=== PATIENT | female | born 1960 | race Caucasian/White ===

== ENCOUNTER 2018-02-04 19:47 | Emergency (ER) | payer OTHER ==
[2018-02-04 20:42] LABS: Absolute Lymphocytes (CBC) 1.3 K/uL (0.7-4.9); Absolute Monocytes 1.6 K/uL (0.1-1.3); Absolute Neutrophil 10.2 K/uL (1.8-8.0); Basophils % 0.5 % (0-1.3); Eosinophils % 1.5 % (0-4.4); Hematocrit 32.9 % (36.0-45.0); MCH 28.1 pg (27.0-35.0); MPV 8.5 fL (7.6-11.3); Monocytes % 11.9 % (3.3-12.3); RBC Red Blood Cell Count 4.01 M/uL (3.86-4.86)
[2018-02-04 20:49] LABS: Bicarbonate 30 mEq/L (21-31); Glucose Level 84 mg/dL (65-120); Potassium 3.7 mEq/L (3.6-5.0); Sodium Level 139 mEq/L (135-145)
[2018-02-04] MEDS ORDERED: PROMETHAZINE 25 MG/ML VIAL ONE (20:52)
[2018-02-04] MEDS ORDERED: ACETAMINOPHEN 500 MG TAB ONE (20:52)
[2018-02-04] MEDS ORDERED: NA CHLORIDE 0.9% 1,000 ML ONE (20:52)
[2018-02-04] MEDS ORDERED: ALBUTEROL 2.5 MG/3 ML NEB SOL ONE ×2 (20:52→22:26)
[2018-02-04 20:55] LABS: ALT/SGPT 17 IU/L (10-60); AST/SGOT 20 IU/L (10-42); Alkaline Phosphatase 75 IU/L (42-121); BUN Blood Urea Nitrogen 17 mg/dL (6-20); Bilirubin Direct < 0.1 mg/dL (0-0.2); Bilirubin Total 0.5 mg/dL (0.3-1.2); Glomerular Filtration Rate 50 mL/min (=/>90)
--- NOTE | 2018-02-04 21:51 | ER ---
Nurse's Notes [facility] Name: Adelita Lemons Age: 57 yrs Sex: Female : 1960 Arrival Date: 02/04/2018 Time: 19:54 Bed 19 Private MD: Diagnosis: Acute Upper Respiratory Infection;Bronchitis Presentation: 02/04 19:59 Presenting complaint: Patient states: sinus congestion, fever, cough since wednesday. la1 Transition of care: patient was not received from another setting of care. Onset of symptoms was February 04, 2018. Care prior to arrival: None. 19:59 Method Of Arrival: Ambulatory la1 19:59 Acuity: CRISTAL 3 la1 Historical: - Allergies: 19:59 Amoxicillin; la1 19:59 morphine-vomiting; la1 - PMHx: 19:59 None; la1 - Immunization history:: Adult Immunizations up to date. - Social history:: Smoking status: Patient/guardian denies using tobacco. - Family history:: not pertinent. - Hospitalizations: : No recent hospitalization is reported. Screenin:17 Abuse screen: Denies threats or abuse. Nutritional screening: No deficits noted. bb Tuberculosis screening: No symptoms or risk factors identified. Fall Risk None identified. Assessment: 20:17 General: Appears in no apparent distress. Behavior is calm, cooperative. Neuro: Level bb of Consciousness is awake, alert, obeys commands, Oriented to person, place, time, situation. Cardiovascular: No deficits noted. Respiratory: Respiratory effort is unlabored, Breath sounds are clear bilaterally. GI: Abdomen is non-distended, Bowel sounds present X 4 quads. Derm: Skin is pink, warm \T\ dry. Musculoskeletal: Circulation, motion, and sensation intact. 20:54 Reassessment: Patient is alert, oriented x 3, equal unlabored respirations, skin bb warm/dry/pink. pt returned from CT scan, spouse at bedside, IV intact. 22:33 Reassessment: Patient and/or family updated on plan of care and expected duration. Pain bb level reassessed. Patient is alert, oriented x 3, equal unlabored respirations, skin warm/dry/pink. pt awaiting discharge for completion of breathing treatment. 23:28 Reassessment: Patient is alert, oriented x 3, equal unlabored respirations, skin bb warm/dry/pink. pt verbalized understanding of and agrees to plan of care discharge instructions given pt ambulated with steady gait to exit accompanied by spouse Patient states feeling better. Vital Signs: 19:59 BP 156 / 103; Pulse 105; Resp 19; Temp 99.0(TE); Pulse Ox 98% on R/A; Weight 90.72 kg; la1 Height 6 ft. 3 in. (190.50 cm) (R); 21:13 BP 181 / 99; Pulse 96; Resp 22 S; Pulse Ox 98% on R/A; bb 22:34 BP 149 / 84; Pulse 85; Resp 16 S; Pulse Ox 99% on 7% Nebulizer Mask; bb 23:28 BP 153 / 83; Pulse 95; Resp 18 S; Temp 98.4(O); Pulse Ox 94% on R/A; bb 19:59 Body Mass Index 25.00 (90.72 kg, 190.50 cm) la1 ED Course: 19:54 Patient arrived in ED. la1 19:59 Triage completed. la1 20:00 Arm band placed on left wrist. la1 20:04 Jose Antonio Leung MD is Attending Physician. wa 20:17 Bhavana Hill, DISHA is Primary Nurse. bb 20:17 Patient has correct armband on for positive identification. Bed in low position. Call bb light in reach. Side rails up X 1. Adult w/ patient. Pulse ox on. NIBP on. 20:25 Initial lab(s) drawn, by me, sent to lab. Flu and/or RSV swab sent to lab. Inserted bb saline lock: 20 gauge in right wrist, using aseptic technique. Blood collected. 20:29 Patient moved to radiology via wheelchair. ag1 20:33 X-ray completed. Patient tolerated procedure well. ag1 20:33 Patient moved back from radiology. ag1 23:30 No provider procedures requiring assistance completed. IV discontinued, intact, bb bleeding controlled, No redness/swelling at site. Pressure dressing applied. Administered Medications: 20:25 Drug: Promethazine 12.5 mg Route: IVP; Site: right wrist; bb 22:18 Follow up: Response: No adverse reaction bb 20:45 Drug: Albuterol 2.5 mg Route: Inhalation; bb 20:45 Drug: NS 0.9% 1000 ml Route: IV; Rate: 1000 ml; Site: right wrist; bb 22:18 Follow up: IV Status: Completed infusion; IV Intake: 1000ml bb 20:55 Drug: Tylenol 1000 mg Route: PO; bb 22:18 Follow up: Response: No adverse reaction bb 22:16 Drug: Albuterol 2.5 mg Route: Inhalation; bb 22:18 Follow up: Response: No change in condition bb 23:30 Follow up: Response: No adverse reaction bb 22:17 Drug: Decadron - Dexamethasone 10 mg Route: IVP; Site: right wrist; bb 23:29 Follow up: Response: No adverse reaction bb 22:17 Drug: AtroVENT Aerosol 0.5 mg Route: Inhalation; bb 23:29 Follow up: Response: No adverse reaction bb 22:17 Drug: Cetirizine 10 mg Route: PO; bb 23:29 Follow up: Response: No adverse reaction bb Intake: 22:18 IV: 1000ml; Total: 1000ml. bb Outcome: 21:51 Discharge ordered by . wa 23:30 Discharged to home ambulatory, with family. bb 23:30 Condition: stable 23:30 Discharge instructions given to patient, Instructed on discharge instructions, follow up and referral plans. medication usage, Demonstrated understanding of instructions, follow-up care, medications, Prescriptions given X 3. 23:31 Patient left the ED. bb Signatures: Bhavana Hill RN RN bb Attema, Lee, RN RN la1 Elena Meneses ag1 Jose Antonio Leung MD MD wa Corrections: (The following items were deleted from the chart) 23:03 23:01 BP 184 / 82; Pulse 107bpm; Resp 22bpm; Spontaneous; Pulse Ox 97% RA; bb bb
--- NOTE | 2018-02-04 21:51 | EDPHYS ---
Physician Documentation [facility] Name: Adelita Lemons Age: 57 yrs Sex: Female : 1960 Arrival Date: 02/04/2018 Time: 19:54 Bed 19 Private MD: ED Physician Jose Antonio Leung HPI: 02/04 20:21 This 57 yrs old Female presents to ER via Ambulatory with complaints of cough wa and congestion. 20:21 The patient or guardian reports cough, that is constant, difficulty breathing, flu wa symptoms, low-grade fever, myalgias, runny nose and sinus congestion. states OTC decongestants and cough medicines not working. admits to low grade fever that began today. Onset: The symptoms/episode began/occurred 6 day(s) ago. Modifying factors: The symptoms are alleviated by nothing. the symptoms are aggravated by nothing. Associated signs and symptoms: Pertinent positives: fever, nausea, rhinorrhea, Pertinent negatives: chest pain, diarrhea, ear ache, sore throat, vomiting. Severity of symptoms: At their worst the symptoms were moderate in the emergency department the symptoms are worse. The patient has not experienced similar symptoms in the past. The patient has not recently seen a physician. Historical: - Allergies: 19:59 Amoxicillin; la1 19:59 morphine-vomiting; la1 - PMHx: 19:59 None; la1 - Immunization history:: Adult Immunizations up to date. - Social history:: Smoking status: Patient/guardian denies using tobacco. - Family history:: not pertinent. - Hospitalizations: : No recent hospitalization is reported. ROS: 20:25 Eyes: Negative for injury, pain, redness, and discharge, ENT: Negative for injury, wa pain, and discharge, Neck: Negative for injury, pain, and swelling, Cardiovascular: Negative for chest pain, palpitations, and edema, Abdomen/GI: Negative for abdominal pain, nausea, vomiting, diarrhea, and constipation, Back: Negative for injury and pain, : Negative for injury, bleeding, discharge, and swelling, MS/Extremity: Negative for injury and deformity, Skin: Negative for injury, rash, and discoloration, Neuro: Negative for headache, weakness, numbness, tingling, and seizure, Psych: Negative for depression, anxiety, suicide ideation, homicidal ideation, and hallucinations. 20:25 Constitutional: Positive for chills, fever, Negative for poor PO intake, weight loss. 20:25 ENT: Positive for rhinorrhea, sinus congestion, Negative for ear pain, sore throat. 20:25 Respiratory: Positive for cough, with no reported sputum, Negative for hemoptysis, orthopnea, pleurisy, shortness of breath. 20:25 All other systems are negative. Exam: 20:27 Constitutional: This is a well developed, well nourished patient who is awake, alert, wa and in no acute distress. Head/Face: Normocephalic, atraumatic. Eyes: Pupils equal round and reactive to light, extra-ocular motions intact. Lids and lashes normal. Conjunctiva and sclera are non-icteric and not injected. Cornea within normal limits. Periorbital areas with no swelling, redness, or edema. ENT: Nares patent. No nasal discharge, no septal abnormalities noted. Tympanic membranes are normal and external auditory canals are clear. Oropharynx with no redness, swelling, or masses, exudates, or evidence of obstruction, uvula midline. Mucous membranes moist. Neck: Trachea midline, no thyromegaly or masses palpated, and no cervical lymphadenopathy. Supple, full range of motion without nuchal rigidity, or vertebral point tenderness. No Meningismus. Chest/axilla: Normal chest wall appearance and motion. Nontender with no deformity. No lesions are appreciated. Abdomen/GI: Soft, non-tender, with normal bowel sounds. No distension or tympany. No guarding or rebound. No evidence of tenderness throughout. Back: No spinal tenderness. No costovertebral tenderness. Full range of motion. Skin: Warm, dry with normal turgor. Normal color with no rashes, no lesions, and no evidence of cellulitis. MS/ Extremity: Pulses equal, no cyanosis. Neurovascular intact. Full, normal range of motion. Neuro: Awake and alert, GCS 15, oriented to person, place, time, and situation. Cranial nerves II-XII grossly intact. Motor strength 5/5 in all extremities. Sensory grossly intact. Cerebellar exam normal. Normal gait. Psych: Awake, alert, with orientation to person, place and time. Behavior, mood, and affect are within normal limits. 20:27 Cardiovascular: Exam negative for Rate: tachycardic, Rhythm: regular, Heart sounds: murmur, systolic, grade 3 over 6, Edema: JVD: 20:27 Respiratory: the patient does not display signs of respiratory distress, Respirations: normal, Breath sounds: decreased breath sounds, that are moderate, are located in both bases. Vital Signs: 19:59 BP 156 / 103; Pulse 105; Resp 19; Temp 99.0(TE); Pulse Ox 98% on R/A; Weight 90.72 kg; la1 Height 6 ft. 3 in. (190.50 cm) (R); 21:13 BP 181 / 99; Pulse 96; Resp 22 S; Pulse Ox 98% on R/A; bb 22:34 BP 149 / 84; Pulse 85; Resp 16 S; Pulse Ox 99% on 7% Nebulizer Mask; bb 23:28 BP 153 / 83; Pulse 95; Resp 18 S; Temp 98.4(O); Pulse Ox 94% on R/A; bb 19:59 Body Mass Index 25.00 (90.72 kg, 190.50 cm) la1 MDM: 20:04 Patient medically screened. wa 20:30 Differential diagnosis: bronchitis, flu, URI, r/o pna. wa 21:14 Data reviewed: vital signs, nurses notes, lab test result(s), EKG, radiologic studies. wa Test interpretation: by ED physician or midlevel provider: EKG: HR 82. within nml limits. 21:47 Test interpretation: by ED physician or midlevel provider: labs noted for leukocytosis wa and mild renal insufficiency. . Test interpretation: by ED physician or midlevel provider: CXR: negative. 21:49 Response to treatment: the patient's symptoms have markedly improved after treatment. la Special discussion: will d/c with meds and close f/u. 02/04 20:15 Order name: Basic Metabolic Panel 02/04 20:15 Order name: BNP 02/04 20:15 Order name: CBC with Diff 02/04 20:15 Order name: LFT's 02/04 20:15 Order name: Troponin (emerg Dept Use Only) 02/04 20:15 Order name: Flu 02/04 20:15 Order name: Chest Pa And Lat (2 Views) XRAY 02/04 20:43 Order name: CBC with Automated Diff; Complete Time: 20:43 EDMS 02/04 20:49 Order name: Basic Metabolic Panel; Complete Time: 21:45 [facility] 02/04 20:49 Order name: Influenza Screen (A ; Complete Time: 21:46 [facility] 02/04 20:55 Order name: Liver (Hepatic) Function; Complete Time: 21:46 [facility] 02/04 20:55 Order name: Troponin (Emerg Dept Use Only); Complete Time: 21:46 [facility] 02/04 21:20 Order name: BNP B-Type Natriuretic Peptide; Complete Time: 21:45 [facility] 02/04 21:59 Order name: RAD; Complete Time: 22:03 [facility] 02/04 20:15 Order name: EKG; Complete Time: 20:16 la 02/04 20:15 Order name: Cardiac monitoring; Complete Time: 20:56 la 02/04 20:15 Order name: EKG - Nurse/Tech; Complete Time: 20:56 la 02/04 20:15 Order name: IV Saline Lock; Complete Time: 20:56 la 02/04 20:15 Order name: Labs collected and sent; Complete Time: 20: la 02/04 20:15 Order name: O2 Per Protocol; Complete Time: 20: la 02/04 20:15 Order name: O2 Sat Monitoring; Complete Time: 20:56 la Administered Medications: 20:25 Drug: Promethazine 12.5 mg Route: IVP; Site: right wrist; bb 22:18 Follow up: Response: No adverse reaction bb 20:45 Drug: Albuterol 2.5 mg Route: Inhalation; bb 20:45 Drug: NS 0.9% 1000 ml Route: IV; Rate: 1000 ml; Site: right wrist; bb 22:18 Follow up: IV Status: Completed infusion; IV Intake: 1000ml bb 20:55 Drug: Tylenol 1000 mg Route: PO; bb 22:18 Follow up: Response: No adverse reaction bb 22:16 Drug: Albuterol 2.5 mg Route: Inhalation; bb 22:18 Follow up: Response: No change in condition bb 23:30 Follow up: Response: No adverse reaction bb 22:17 Drug: Decadron - Dexamethasone 10 mg Route: IVP; Site: right wrist; bb 23:29 Follow up: Response: No adverse reaction bb 22:17 Drug: AtroVENT Aerosol 0.5 mg Route: Inhalation; bb 23:29 Follow up: Response: No adverse reaction bb 22:17 Drug: Cetirizine 10 mg Route: PO; bb 23:29 Follow up: Response: No adverse reaction bb Disposition: 02/04/18 21:51 Discharged to Home. Impression: Acute Upper Respiratory Infection, Bronchitis. - Condition is Stable. - Prescriptions for Zithromax Z- Nehemiah 250 mg Oral Tablet - take 1 tablet by ORAL route as directed for 5 days Day 1 - take two (2) tablets one time. Day 2, 3, 4 , 5 take one (1) tablet once daily.; 6 tablet. Albuterol Sulfate 90 mcg/actuation - inhale 1-2 puff by INHALATION route every 4-6 hours; 1 Inhaler. promethazine 25 mg Oral Tablet - take 1 tablet by ORAL route every 8 hours As needed; 20 tablet. - Medication Reconciliation Form, Thank You Letter, Antibiotic Education, Prescription Opioid Use form. - Follow up: Private Physician; When: 2 - 3 days; Reason: Recheck today's complaints. - Problem is new. - Symptoms have improved. - Notes: take medicines as prescribed. follow up with your doctor within 2-3 days as needed Signatures: Dispatcher [employer] Bhavana Bernabe RN RN Conrad Prince RN RN la1 Jose Antonio Leung MD MD wa
--- NOTE | 2018-02-04 21:58 | RAD REPORT ---
EXAM DESCRIPTION: Gerardo House (2 Views)02/04/2018 8:36 pm CLINICAL HISTORY: Cough COMPARISON: August 2017 FINDINGS: The lungs appear clear of acute infiltrate. The heart is normal size IMPRESSION: No acute abnormalities displayed
[2018-02-04] MEDS ORDERED: IPRATROPIUM BROM 0.5MG/2.5ML ONE (22:26)
[2018-02-04] MEDS ORDERED: CETIRIZINE HCL 5 MG TABLET ONE ×2 (22:27→22:46)
[2018-02-04] MEDS ORDERED: DEXAMETHASONE 4 MG/ML VIAL ONE (22:30)
[2018-02-04 23:39] VITALS: BP 153/83; TEMP 98.4; O2SAT 94
--- NOTE | 2018-02-05 07:23 | EKG ---
Test Date: 2018-02-04 Test Time: 20:59:05 Clinical Account Manager: ALEX MEASUREMENT RESULTS: Intervals: Rate: 82 IL: 134 QRSD: 74 QT: 388 QTc: 453 [place]: P: 37 IL: 134 QRS: 17 T: 5 INTERPRETIVE STATEMENTS: Normal sinus rhythm Normal ECG Compared to ECG 09/08/2017 11:53:51 Left ventricular hypertrophy no longer present ST (T wave) deviation no longer present Electronically Signed On 02-05-18 07:21:42 CDT by Amrik Garcia
== END 2018-02-04 23:31 | disposition home or self-care (01) ==
LOC: ER 19:47
DX: J40 Bronchitis, not specified as acute or chronic (principal); J06.9 Acute upper respiratory infection, unspecified; Z88.0 Allergy status to penicillin; Z88.5 Allergy status to narcotic agent
CPT/HCPCS: 36415; 71046; 80048; 80076; 83880; 84484; 85025; 87804; 93005; 96361; 96374; 96375; 99284; J2550; J7030

== ENCOUNTER 2019-03-31 17:04 | Emergency (ER) | payer OTHER ==
--- OUTSIDE RECORDS SUMMARY | 2019-03-31 17:09 | XMS REPORT | Clinical Summary ---
:1960 Author Organization [facility] Address [address] [place] [address] Care Team Providers Name Role Phone Jose Antonio Currie MD Primary Care Provider Allergies Active Allergy Reactions Severity Noted Date Comments Amoxicillin Hives Medium 08/08/2018 Morphine Itching 08/08/2018 Medications Medication Sig Dispensed Refills Start Date End Date Status etodolac (LODINE) 500 Take 500 mg 0 Active MG tablet by mouth 2 (two) times a day. traMADol (ULTRAM) 50 Take 50 mg by 0 Active mg tablet mouth every 4 (four) hours as needed for moderate pain. NIACIN ORAL Take by 0 Active mouth. docusate sodium Take by 0 Active (STOOL SOFTENER ORAL) mouth. meloxicam (MOBIC) 15 Take 1 tablet 30 tablet 4 12/01/2018 Active mg tablet (15 mg total) 0 by mouth daily. cyclobenzaprine TAKE ONE (1) 90 tablet 1 03/17/2019 Active (FLEXERIL) 10 mg TABLET(S) BY tablet MOUTH THREE TIMES A DAY NEEDED FOR MUSCLE SPASMS FOR UP TO 30 DAYS. traMADol (ULTRAM) 50 Take 1 tablet 60 tablet 2 03/22/2019 Active mg tablet (50 mg total) 9 by mouth every 4 (four) hours as needed for moderate pain for up to 14 days. traMADol (ULTRAM) 50 Take 1 tablet 60 tablet 3 07/20/2018 mg tablet (50 mg total) 8 by mouth every 4 (four) hours as needed for moderate pain for up to 14 days. oxyCODone Take 1 tablet 100 tablet 0 08/24/2018 (ROXICODONE) 10 MG (10 mg total) 8 tablet by mouth every 6 (six) hours as needed for moderate pain for up to 14 days. Max Daily Amount: 40 mg oxyCODone-acetaminoph 1 tab PO q4-6 60 tablet 0 09/09/2018 en (PERCOCET) 10-325 prn pain 8 mg per tablet promethazine Take 0.5 60 tablet 0 09/09/2018 (PHENERGAN) 50 MG tablets (25 8 tablet mg total) by mouth every 6 (six) hours as needed for nausea or vomiting for up to 30 days. traMADol (ULTRAM) 50 Take 1 tablet 60 tablet 3 12/01/2018 mg tablet (50 mg total) 9 by mouth every 4 (four) hours as needed for moderate pain for up to 14 days. methocarbamol Take 1 tablet 90 tablet 2 12/22/2018 (ROBAXIN-750) 750 MG (750 mg 9 tablet total) by mouth 3 (three) times a day for 30 days. cyclobenzaprine Take 1 tablet 90 tablet 2 12/23/2018 Discontinued (FLEXERIL) 10 mg (10 mg total) 9 tablet by mouth 3 (three) times a day as needed for muscle spasms for up to 30 days. Active Problems Problem Noted Date Primary osteoarthritis of right hip 03/16/2019 Limited abduction of right hip 08/23/2018 Encounters Date Type Specialty Care Team Description 03/22/2019 Orders Only Orthopedic Surgery Castillo Corbin PA-C 03/17/2019 Refill Orthopedic Surgery Castillo Corbin PA-C 03/16/2019 Office Visit Sports Medicine Ghulam Barry MD osteoarthritis of right hip (Primary Dx) 03/16/2019 Office Visit Orthopedic Surgery Luis Antonio Armstrong Primary osteoarthritis of right hip (Primary Dx); MD Erik Rupture of gluteus minimus tendon, right, sequela 03/15/2019 Hospital Encounter Radiology Castillo Corbin Tear of gluteus JESSE Almaraz minimus tendon, Luis Antonio Armstrong right, subsequent MD Erik encounter 03/15/2019 Office Visit Orthopedic Surgery Luis Antonio Armstrong Primary osteoarthritis of right hip (Primary Dx); MD Erik Tear of gluteus minimus tendon, right, subsequent encounter; Trochanteric bursitis of right hip 03/14/2019 Orders Only Orthopedic Surgery Lay, History of right hip Layla replacement (Primary Dx) 01/24/2019 Orders Only Orthopedic Surgery Castillo Corbin Tear of right gluteus Rufina, PA-C minimus tendon, initial encounter (Primary Dx) 01/23/2019 Orders Only Orthopedic Surgery Lay, Hx of bursectomy Layla (Primary Dx) 12/23/2018 Orders Only Orthopedic Surgery Castillo Corbin PA-C 12/22/2018 Orders Only Orthopedic Surgery Castillo Corbin, PA-C 12/01/2018 Office Visit Orthopedic Surgery Luis Antonio Armstrong Tear of gluteus MD Erik minimus tendon, right, subsequent encounter (Primary Dx) 11/30/2018 Orders Only Orthopedic Surgery Lay, Pain of right hip Layla joint (Primary Dx) 09/09/2018 Office Visit Orthopedic Surgery Castillo Corbin History of bursectomy Rufina PA-C (Primary Dx) 09/09/2018 Orders Only Orthopedic Surgery Castillo Corbin, PA-C 08/23/2018 Surgery Orthopedic Surgery Luis Antonio Armstrong BURSECTOMY AND REPAIR MD Erik HIP ABDUCTOR TENSON 08/23/2018 Anesthesia Event Orthopedic Surgery [facility] Meri ponce, 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 08/23/2018 - Hospital Encounter Orthopedic Surgery Luis Antonio Armstrong 08/25/2018 MD Erik 08/23/2018 Orders Only Orthopedic Surgery Lay, Layla 08/17/2018 Office Visit Orthopedic Surgery Luis Antonio Armstrong Tear of gluteus minimus tendon, initial encounter (Primary Dx); MD Erik Trochanteric bursitis of right hip 08/17/2018 Pre-Admit Testing Pre-Admission Luis Antonio Armstrong Preop testing Appointment Testing MD Erik (Primary Dx) 07/20/2018 Hospital Encounter Radiology Luis Antonio Armstrong MD 07/20/2018 Office Visit Orthopedic Surgery Luis Antonio Armstrong Trochanteric bursitis MD Erik of right hip (Primary Dx) 07/19/2018 Orders Only Orthopedic Surgery Lay, Pain of right hip Layla joint (Primary Dx) after 03/30/2018 Social History Tobacco Use Types Packs/Day Years Used Date Never Smoker Smokeless Tobacco: Never Used Alcohol Use Drinks/Week oz/Week Comments No Sex Assigned at Date Recorded Not on file Job Start Date Occupation Industry Not on file Not on file Not on file Travel History Travel Start Travel End No recent travel history available. Last Filed Vital Signs Vital Sign Reading Time Taken Blood Pressure 169/89 08/25/2018 4:34 PM CDT Pulse 93 08/25/2018 4:34 PM CDT Temperature 37.2 C (99 F) 08/25/2018 4:34 PM CDT Respiratory Rate 17 08/25/2018 4:34 PM CDT Oxygen Saturation 96% 08/25/2018 4:34 PM CDT Inhaled Oxygen Concentration - - Weight 90 kg (198 lb 7 oz) 08/23/2018 9:37 AM CDT Height 190.5 cm (6' 3") 08/23/2018 9:37 AM CDT Body Mass Index 24.8 08/23/2018 9:37 AM CDT Plan of Treatment Health Maintenance Due Date Last Done Comments CERVICAL CANCER SCREENING 1979 BREAST CANCER SCREENING 2008 COLON CANCER SCREENING 2008 SHINGLES VACCINES (#1) 2008 INFLUENZA VACCINE 06/15/2019 Procedures Procedure Name Priority Date/Time Associated Diagnosis Comments MRI LOWER EXTREMITY Routine 03/15/2019 3:35 Tear of gluteus Results for this JOINT WO CONTRAST PM CDT minimus tendon, procedure are in RIGHT right, subsequent the results encounter section. XR PELVIS 1 OR 2 VW Routine 03/15/2019 12:07 History of right hip Results for this PM CDT replacement procedure are in the results section. XR PELVIS 1 OR 2 VW Routine 12/01/2018 10:46 Pain of right hip Results for this AM [employer] joint procedure are in the results section. CBC WITH PLATELET AND Routine 08/25/2018 11:05 Results for this DIFFERENTIAL AM CDT procedure are in the results section. ESTIMATED GFR Routine 08/25/2018 4:00 Results for this AM CDT procedure are in the results section. PHOSPHORUS LEVEL Routine 08/25/2018 4:00 Results for this AM CDT procedure are in the results section. MAGNESIUM LEVEL Routine 08/25/2018 4:00 Results for this AM CDT procedure are in the results section. BASIC METABOLIC PANEL Routine 08/25/2018 4:00 Results for this AM CDT procedure are in the results section. ESTIMATED GFR Routine 08/24/2018 6:05 Results for this AM CDT procedure are in the results section. BASIC METABOLIC PANEL Routine 08/24/2018 6:05 Results for this AM CDT procedure are in the results section. HC COMPLETE BLD COUNT Routine 08/24/2018 6:05 Results for this W/AUTO DIFF AM CDT procedure are in the results section. IL AN ELECTIVE Routine 08/23/2018 1:06 ENDOTRACHEAL AIRWAY PM CDT Procedure Note - Anthony Zheng CRNA - 08/23/2018 1:06 PM CDT Airway Date/Time: 08/23/2018 1:01 PM Performed by: ANTHONY ZHENG Authorized by: PHYLICIA GÓMEZ Location: OR Urgency: Elective Difficult Airway: No Anesthesiologist: PHYLICIA GÓMEZ Performed by: anesthesiologist Preoxygenated with 100% O2: Yes Mask Ventilation: Easy mask Final Airway Type: Endotracheal airway Final Endotracheal Airway: ETT Cuffed: Yes Technique Used: Direct laryngoscopy Insertion Site: Oral Blade Type: Fermin Laryngoscope Blade/Videolaryngoscope Blade Size: 3 ETT Size (mm): 7.0 Cuff at minimum occlusion pressure: Yes Measured from: Lips ETT to Lips (cm): 22 Placement Verified by: CO2 detection, direct visualization and equal breath sounds Laryngoscopic view: Grade IIb - view of arytenoids or posterior of glottis only Number of Attempts at Approach: 1 TENOTOMY, OPEN, HIP ABDUCTOR 08/23/2018 1:00 PM CDT ABDUCTOR TEAR Case Notes SUPINE LATERAL, POSS EXTENDED RECOVERY NEEDED Special Needs SUPINE LATERAL, POSS EXTENDED RECOVERY NEEDED ECG PRE/POST OP Routine 08/17/2018 5:01 Preop testing Results for this PM CDT procedure are in the results section. ESTIMATED GFR Routine 08/17/2018 4:50 Results for this PM CDT procedure are in the results section. CBC HEMOGRAM Routine 08/17/2018 4:50 Preop testing Results for this PM CDT procedure are in the results section. BASIC METABOLIC PANEL Routine 08/17/2018 4:50 Preop testing Results for this PM CDT procedure are in the results section. MRI PELVIS WO CONTRAST Routine 08/08/2018 12:00 Trochanteric Results for this PM CDT bursitis of right procedure are in hip the results section. XR PELVIS 1 OR 2 VW Routine 07/20/2018 1:41 Pain of right hip Results for this PM CDT joint procedure are in the results section. IL ARTHROCENTESIS Routine 07/20/2018 1:00 Trochanteric Results for this ASPIR&/INJ MAJOR PM CDT bursitis of right procedure are in JT/BURSA W/O US hip the results section. XR LOWER EXTREMITY Routine 04/12/2018 8:47 Results for this EXTERNAL STUDY AM CDT procedure are in the results section. after 03/30/2018 Results MRI Lower Extremity Joint Wo Contrast Right (03/15/2019 3:35 PM CDT) Narrative Performed At EXAM: MRI LOWER EXTREMITY JOINT WO CONTRAST RIGHT [facility] CLINICAL DATA:S76.011D Strain of musclefascia and tendon of right hip subsequent encounter, status post repair hip abductor tendon COMPARISON: MRI of the pelvis dated 08/08/2018 FINDINGS: 1. Bone marrow:No marrow edema, stress change/fracture or avascular necrosis. 2. Joint/Cartilage: There is partial thickness chondromalacia involving the anterosuperior acetabulum involving up to 50% chondral thickness. Similar partial thickness chondromalacia is noted involving the anterior and anterosuperior femoral head cartilage. Findings are overall consistent with mild to moderate osteoarthrosis. 3. Labrum: There is a degenerative tear extending from the level of the anterosuperior labrum into the superior and posterosuperior labrum with minimal separation of the cartilage labral junction. 4. Femoroacetabular Impingement Assessment: Femoral head neck offset appears appropriate. 5. Extra Articular Hip Impingement Assessment: *Subspine: No excess bone or proliferative changes at the anterior inferior iliac spine. *Iliopsoas:The iliopsoas tendon is intact and unremarkable. *Quadratus Femoris: The quadratus femoris space is not narrowed. No specific findings of ischiofemoral impingement. 6. Gluteal Tendons: Prior abductor repair. There is peritendinitis and bursitis associated with the gluteus minimus tendon. There is partial thickness interstitial tearing involving the posterosuperior footprint of gluteus medias and peritendinitis of the lateral footprint. Insertional peritendinitis of the lateral footprint of gluteus medius. 7. Hamstring Origins: Tendinosis of the hamstring origin without evidence of a tear. 8. Sciatic Nerve: Proximal sciatic nerve unremarkable. 9. Bursitis:No trochanteric or iliopsoas bursitis. 10. Major Muscle Groups: No muscle strains, edema or asymmetric atrophy. 11. Joint effusion: There is a small joint effusion.. 12. Soft tissues: Large field imaging of the hip demonstrates patchy red marrow and spondylosis of the lower lumbar spine. No definite free fluid in the pelvis. Uterus is absent. Possible laxity of the pelvic floor. IMPRESSION: 1.Prior abductor tendon repair with insertional tendinosis of the gluteus minimus footprint with associated subgluteus minimus bursitis. Partial thickness interstitial tearing of the posterosuperior footprint of gluteus medius minimus with insertional peritendinitis of the lateral footprint. 2.Mild to moderate osteoarthrosis of the hip with partial-thickness chondromalacia and degenerative labral tearing as detailed above. [facility]-[id number] Procedure Note Interface, Radiology Results Incoming - 03/15/2019 4:20 PM CDT EXAM: MRI LOWER EXTREMITY JOINT WO CONTRAST RIGHT CLINICAL DATA: S76.011D Strain of muscle fascia and tendon of right hip subsequent encounter, status post repair hip abductor tendon COMPARISON: MRI of the pelvis dated 08/08/2018 FINDINGS: 1. Bone marrow:No marrow edema, stress change/fracture or avascular necrosis. 2. Joint/Cartilage: There is partial thickness chondromalacia involving the anterosuperior acetabulum involving up to 50% chondral thickness. Similar partial thickness chondromalacia is noted involving the anterior and anterosuperior femoral head cartilage. Findings are overall consistent with mild to moderate osteoarthrosis. 3. Labrum: There is a degenerative tear extending from the level of the anterosuperior labrum into the superior and posterosuperior labrum with minimal separation of the cartilage labral junction. 4. Femoroacetabular Impingement Assessment: Femoral head neck offset appears appropriate. 5. Extra Articular Hip Impingement Assessment: * Subspine: No excess bone or proliferative changes at the anterior inferior iliac spine. * Iliopsoas:The iliopsoas tendon is intact and unremarkable. * Quadratus Femoris: The quadratus femoris space is not narrowed. No specific findings of ischiofemoral impingement. 6. Gluteal Tendons: Prior abductor repair. There is peritendinitis and bursitis associated with the gluteus minimus tendon. There is partial thickness interstitial tearing involving the posterosuperior footprint of gluteus medias and peritendinitis of the lateral footprint. Insertional peritendinitis of the lateral footprint of gluteus medius. 7. Hamstring Origins: Tendinosis of the hamstring origin without evidence of a tear. 8. Sciatic Nerve: Proximal sciatic nerve unremarkable. 9. Bursitis:No trochanteric or iliopsoas bursitis. 10. Major Muscle Groups: No muscle strains, edema or asymmetric atrophy. 11. Joint effusion: There is a small joint effusion.. 12. Soft tissues: Large field imaging of the hip demonstrates patchy red marrow and spondylosis of the lower lumbar spine. No definite free fluid in the pelvis. Uterus is absent. Possible laxity of the pelvic floor. IMPRESSION: 1. Prior abductor tendon repair with insertional tendinosis of the gluteus minimus footprint with associated subgluteus minimus bursitis. Partial thickness interstitial tearing of the posterosuperior footprint of gluteus medius minimus with insertional peritendinitis of the lateral footprint. 2. Mild to moderate osteoarthrosis of the hip with partial-thickness chondromalacia and degenerative labral tearing as detailed above. [id number] Performing Organization Address City/[facility]/Zipcode Phone Number [facility] [address] [place] [address] XR Pelvis 1 Or 2 Vw (03/15/2019 12:07 PM CDT)Only the most recent of3 resultswithin the time period is included. Narrative Performed At No artem or soft tissue abnormality [facility] Performing Organization Address City/[facility]/Zipcode Phone Number [employer] [address] [place] [address] CBC with platelet and differential (08/25/2018 11:05 AM CDT)Only the most recent of2 resultswithin the time period is included. WBC 10.36 4.50 - 11.00 k/uL [facility] DEPARTMENT OF PATHOLOGY AND GENOMIC MEDICINE RBC 3.33 (L) 4.20 - 5.50 m/uL [facility] DEPARTMENT OF PATHOLOGY AND GENOMIC MEDICINE HGB 9.5 (L) 12.0 - 16.0 g/dL [facility] DEPARTMENT OF PATHOLOGY AND GENOMIC MEDICINE HCT 29.0 (L) 37.0 - 47.0 % [facility] DEPARTMENT OF PATHOLOGY AND GENOMIC MEDICINE MCV 87.1 82.0 - 100.0 fL [facility] DEPARTMENT OF PATHOLOGY AND GENOMIC MEDICINE MCH 28.5 27.0 - 34.0 pg [facility] DEPARTMENT OF PATHOLOGY AND GENOMIC MEDICINE MCHC 32.8 31.0 - 37.0 g/dL [facility] DEPARTMENT OF PATHOLOGY AND GENOMIC MEDICINE RDW - SD 39.9 37.0 - 55.0 fL [facility] DEPARTMENT OF PATHOLOGY AND GENOMIC MEDICINE MPV 10.6 8.8 - 13.2 fL [facility] DEPARTMENT OF PATHOLOGY AND GENOMIC MEDICINE Platelet count 193 150 - 400 k/uL [facility] DEPARTMENT OF PATHOLOGY AND GENOMIC MEDICINE Nucleated RBC 0.00 /100 WBC [facility] DEPARTMENT OF PATHOLOGY AND GENOMIC MEDICINE Neutrophils 70.4 (H) 39.0 - 69.0 % [facility] DEPARTMENT OF PATHOLOGY AND GENOMIC MEDICINE Lymphocytes 15.3 (L) 25.0 - 45.0 % [facility] DEPARTMENT OF PATHOLOGY AND GENOMIC MEDICINE Monocytes 12.3 (H) 0.0 - 10.0 % [facility] DEPARTMENT OF PATHOLOGY AND GENOMIC MEDICINE Eosinophils 1.4 0.0 - 5.0 % [facility] DEPARTMENT OF PATHOLOGY AND GENOMIC MEDICINE Basophils 0.3 0.0 - 1.0 % [facility] DEPARTMENT OF PATHOLOGY AND GENOMIC MEDICINE Immature granulocytes 0.3Comment: 0.0 - 1.0 % [facility] DEPARTMENT OF "Immature PATHOLOGY AND GENOMIC granulocytes" MEDICINE (promyelocytes, myelocytes, metamyelocytes) Specimen Blood Performing Organization Address City/State/Zipcode Phone Number [facility] DEPARTMENT OF PATHOLOGY AND [address] [place] [address] [email or web address] [facility] Estimated GFR (08/25/2018 4:00 AM CDT)Only the most recent of3 resultswithin the time period is included. Estimated GFR 55 (A) mL/min/1.73 m2 [facility] DEPARTMENT OF Comment: PATHOLOGY AND GENOMIC CatergoryUnitsInterpretation MEDICINE G1 >=90 Normal or high G2 60-89Mildly decreased [id number] to moderately decreased [id number] to severely decreased G4 15-29Severely decreased G5 <15Kidney failure The eGFR was calculated using the Chronic Kidney Disease Epidemiology Collaboration (CKD-EPI) equation. Interpretation is based on recommendations of the National Kidney Foundation-Kidney Disease Outcomes Quality Initiative (NKF-KDOQI) published in 2014. Specimen Plasma specimen Performing Organization Address City/[facility]ingley Hospitalcode Phone Number [facility] DEPARTMENT OF PATHOLOGY AND [address] [place] [address] Phosphorus level (08/25/2018 4:00 AM CDT) Phosphorus 3.0 2.4 - 4.5 mg/dL [facility] DEPARTMENT OF PATHOLOGY AND GENOMIC MEDICINE Specimen Plasma specimen Performing Organization Address [facility] Hospitalcoma Phone Number [facility] DEPARTMENT OF PATHOLOGY AND [address] [place] [address] Magnesium level (08/25/2018 4:00 AM CDT) Magnesium 2.0 1.6 - 2.4 mg/dL [facility] DEPARTMENT OF PATHOLOGY AND GENOMIC MEDICINE Specimen Plasma specimen Performing Organization Address [facility] Phone Number [facility] DEPARTMENT OF PATHOLOGY AND [address] [place] [address] MEDICINE Basic metabolic panel (08/25/2018 4:00 AM CDT)Only the most recent of3 resultswithin the time period is included. Sodium 139 135 - 148 mEq/L [facility] DEPARTMENT OF PATHOLOGY AND GENOMIC MEDICINE Potassium 4.3 3.5 - 5.0 mEq/L [facility] DEPARTMENT OF PATHOLOGY AND GENOMIC MEDICINE Chloride 100 98 - 112 mEq/L [facility] DEPARTMENT OF PATHOLOGY AND GENOMIC MEDICINE CO2 31 24 - 31 mEq/L [facility] DEPARTMENT OF PATHOLOGY AND GENOMIC MEDICINE Anion gap 8@ANIO 7 - 15 mEq/L [facility] DEPARTMENT OF PATHOLOGY AND GENOMIC MEDICINE BUN 23 8 - 23 mg/dL [facility] DEPARTMENT OF PATHOLOGY AND GENOMIC MEDICINE Creatinine 1.10 (H) 0.50 - 0.90 mg/dL [facility] DEPARTMENT OF PATHOLOGY AND GENOMIC MEDICINE Glucose 107 (H) 65 - 99 mg/dL [facility] DEPARTMENT OF PATHOLOGY AND GENOMIC MEDICINE Calcium 8.8 8.8 - 10.2 mg/dL [facility] DEPARTMENT OF PATHOLOGY AND GENOMIC MEDICINE Specimen Plasma specimen Performing Organization Address [facility] Phone Number [facility] DEPARTMENT OF PATHOLOGY AND [address] [place] [address] ECG Pre/Post Op (08/17/2018 5:01 PM CDT) Ventricular rate 81 [facility] Atrial rate 81 [facility] MUSE IL interval 156 [facility]USE QRSD interval 96 [facility] QT interval 388 [facility] QTC interval 450 [facility] MUSE P axis 1 66 [facility]USE QRS axis 1 40 [facility] M[facility] T wave axis 42 [facility] EKG impression Normal sinus rhythm-Possible Left atrial [facility] enlargement-Borderline ECG-In automated comparison with ECG of 17-AUG-2018 17:00,-No significant change was found- Performing Organization Address City/[facility] Hospitalcode Phone Number [facility] [address] [place] [address] CBC hemogram (08/17/2018 4:50 PM CDT) WBC 6.13 4.50 - 11.00 k/uL [facility] DEPARTMENT OF PATHOLOGY AND GENOMIC MEDICINE RBC 4.24 4.20 - 5.50 m/uL [facility] DEPARTMENT OF PATHOLOGY AND GENOMIC MEDICINE HGB 11.9 (L) 12.0 - 16.0 g/dL [facility] DEPARTMENT OF PATHOLOGY AND GENOMIC MEDICINE HCT 36.3 (L) 37.0 - 47.0 % [facility] DEPARTMENT OF PATHOLOGY AND GENOMIC MEDICINE MCV 85.6 82.0 - 100.0 fL [facility] DEPARTMENT OF PATHOLOGY AND GENOMIC MEDICINE MCH 28.1 27.0 - 34.0 pg [facility] DEPARTMENT OF PATHOLOGY AND GENOMIC MEDICINE MCHC 32.8 31.0 - 37.0 g/dL [facility] DEPARTMENT OF PATHOLOGY AND GENOMIC MEDICINE RDW - SD 38.3 37.0 - 55.0 fL [facility] DEPARTMENT OF PATHOLOGY AND GENOMIC MEDICINE MPV 10.7 8.8 - 13.2 fL [facility] DEPARTMENT OF PATHOLOGY AND GENOMIC MEDICINE Platelet count 235 150 - 400 k/uL [facility] DEPARTMENT OF PATHOLOGY AND GENOMIC MEDICINE Nucleated RBC 0.00 /100 WBC [facility] DEPARTMENT OF PATHOLOGY AND GENOMIC MEDICINE Specimen Blood Performing Organization Address City/[facility] Hospitalcode Phone Number [facility] DEPARTMENT OF PATHOLOGY AND [address] [place] [id number] [facility] MEDICINE MRI Pelvis Wo Contrast (08/08/2018 12:00 PM CDT) Narrative Performed At EXAMINATION:MRI PELVIS WO CONTRAST [facility] CLINICAL HISTORY:M70.61 Trochanteric bursitisright hip, trochanteric bursitis TECHNIQUE: Multiplanar multisequence MR images of the pelvis were obtained without contrast. The lack of intravenous contrast reduces the sensitivity of the examination. COMPARISON:Pelvis radiographs dated 07/20/2018 FINDINGS: 1.Insertional abductor tendinopathy and peritendinitis with partial- thickness tearing of the gluteus minimus insertion extending to the level of the musculotendinous junction as well as partial tear ing of the lateral footprint of gluteus medius with associated subgluteus medius bursitis. There is peritrochanteric edema as well as mild to moderate greater trochanteric bursitis. 2.Tendinosis of the hamstring origin without tear. The iliopsoas insertion and rectus femoris origins are intact. 3.Evaluation of the hip demonstrates mild osteoarthrosis with degenerative tearing of the anterosuperior and superior labrum at the level of the chondral labral junction which is best seen on series 9, images 10-13. 4.There is low-grade chondromalacia involving the anterosuperior acetabulum and femoral head and more focally which is likely intermediate in thickness along the posterior femoral head and acetabulum as seen on series 5, image 18. 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 Facet joint arthrosis and effusions bilaterally. Symmetric os teoarthrosis of the sacroiliac joints bilaterally. 6.Other findings: The uterus is absent. There is no significant free fluid in the pelvis. No enlarged pelvic lymph nodes. IMPRESSION: 1. Insertional abductor tendinopathy and peritendinitis with mild to moderate greater trochanteric bursitis and partial tearing of the gluteus minimus footprint. There is partial tearing of the lateral footprint of gluteus medius with associated subgluteus medius bursitis. 2. Mild osteoarthrosis of the right hip with degenerative labral tearing as detailed above. [facility]-[id number] Procedure Note Interface, Radiology Results - 08/08/2018 1:49 PM CDT EXAMINATION: MRI PELVIS WO CONTRAST CLINICAL HISTORY: M70.61 Trochanteric bursitis right hip, trochanteric bursitis TECHNIQUE: Multiplanar multisequence MR images of the pelvis were obtained without contrast. The lack of intravenous contrast reduces the sensitivity of the examination. COMPARISON: Pelvis radiographs dated 07/20/2018 FINDINGS: 1. Insertional abductor tendinopathy and peritendinitis with partial- thickness tearing of the gluteus minimus insertion extending to the level of the musculotendinous junction as well as partial tearing of the lateral footprint of gluteus medius with associated subgluteus medius bursitis. There is peritrochanteric edema as well as mild to moderate greater trochanteric bursitis. 2. Tendinosis of the hamstring origin without tear. The iliopsoas insertion and rectus femoris origins are intact. 3. Evaluation of the hip demonstrates mild osteoarthrosis with degenerative tearing of the anterosuperior and superior labrum at the level of the chondral labral junction which is best seen on series 9, images 10-13. 4. There is low-grade chondromalacia involving the anterosuperior acetabulum and femoral head and more focally which is likely intermediate in thickness along the posterior femoral head and acetabulum as seen on series 5, image 18. 5. 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 Facet joint arthrosis and effusions bilaterally. Symmetric osteoarthrosis of the sacroiliac joints bilaterally. 6. Other findings: The uterus is absent. There is no significant free fluid in the pelvis. No enlarged pelvic lymph nodes. IMPRESSION: 1. Insertional abductor tendinopathy and peritendinitis with mild to moderate greater trochanteric bursitis and partial tearing of the gluteus minimus footprint. There is partial tearing of the lateral footprint of gluteus medius with associated subgluteus medius bursitis. 2. Mild osteoarthrosis of the right hip with degenerative labral tearing as detailed above. [facility]-[id number] Performing Organization Address City/State/Zipcode Phone Number [facility] [address] [place] [address] Large Joint Arthrocentesis (07/20/2018 1:00 PM CDT) Narrative Performed At Luis Antonio Armstrong MD 07/21/20183:20 PM Large Joint Arthrocentesis Consent given by: patient Site marked: site marked Timeout: Immediately prior to procedure a time out was called to verify the correct patient, procedure, equipment, technical support engineer and site/side marked as required Supporting Documentation Indications: pain Procedure Details Preparation: Patient was prepped and draped in the usual sterile fashion Ultrasound guided: no Platelet Rich Plasma Used: no PRP Used Location: hip - R greater trochanteric bursa Right side: Needle size: 22 G Approach: lateral Right hip medications administered: 80 mg methylPREDNISolone acetate 40 mg/mL; 5 mL lidocaine 10 mg/mL (1 %) Patient tolerance: patient tolerated the procedure well with no immediate complications XR Lower Extremity External Study (04/12/2018 8:47 AM CDT) Narrative Performed At This exam was not acquired at a [facility] facility and has not been [facility] interpreted by a [facility] Provider.The exam was imported into our imaging system for comparisons purposes. Performing Organization Address City/State/Zipcode Phone Number [facility] [address] [place] [address] after 03/30/2018 Insurance Payer Benefit Plan / Group Subscriber ID Type Phone Address [employer] A[employer] PPO OPEN CHOICE xxxxxxxxxx PPO (Home) [place] [address] Advance Directives Patient has advance care planning documents on file. For more information, please contact:Ab Best[address] [place] [address]
[2019-03-31 18:16] LABS: Absolute Lymphocytes (CBC) 0.5 K/uL (0.7-4.9); Absolute Monocytes 0.3 K/uL (0.1-1.3); Absolute Neutrophil 11.6 K/uL (1.8-8.0); Basophils % 0.5 % (0-1.3); Eosinophils % 0.1 % (0-4.4); Hematocrit 38.6 % (36.0-45.0); Lymphocytes % 3.7 % (15.3-44.8); MPV 8.6 fL (7.6-11.3); Monocytes % 2.6 % (3.3-12.3); RBC Red Blood Cell Count 4.62 M/uL (3.86-4.86)
[2019-03-31] MEDS ORDERED: MECLIZINE HCL 12.5 MG TAB ONE (18:21)
[2019-03-31] MEDS ORDERED: NA CHLORIDE 0.9% 1,000 ML ONE (18:22)
[2019-03-31 18:23] LABS: Protime INR 0.94
--- NOTE | 2019-03-31 18:25 | RAD REPORT ---
EXAM DESCRIPTION: CT - Head Brain Wo Cont - 03/31/2019 6:15 pm CLINICAL HISTORY: Headache, dizziness, nausea and vomiting COMPARISON: CT head September 2013 TECHNIQUE: Axial 5 mm thick images of the head were obtained without IV contrast. All CT scans are performed using dose optimization technique as appropriate and may include automated exposure control or mA/KV adjustment according to patient size. FINDINGS: No intracranial hemorrhage, mass, edema or shift of mid-line structures. No acute infarcti on changes seen. No measurable atrophy or chronic ischemic change. Ventricles are normal. Mastoid air cells and visualized portions of the paranasal sinuses are clear. No acute bony findings. No significant change from comparison. IMPRESSION: Negative non-contrast CT head examination for acute or significant finding.
[2019-03-31] MEDS ORDERED: ACETAMINOPHEN 500 MG TAB ONE (18:40)
[2019-03-31 18:41] LABS: ALT/SGPT 17 U/L (12-78); AST/SGOT 13 U/L (15-37); Albumin 4.4 g/dL (3.4-5.0); Alkaline Phosphatase 93 U/L (45-117); BUN Blood Urea Nitrogen 23 mg/dL (7-18); Bicarbonate 28 mmol/L (21-32); Bilirubin Direct 0.1 mg/dL (0-0.2); Bilirubin Total 0.4 mg/dL (0.2-1.0); Glucose Level 122 mg/dL (74-106); Magnesium 2.3 mg/dL (1.8-2.4); NT PRO-BNP 244 pg/mL (<125); Potassium 3.8 mmol/L (3.5-5.1); Sodium Level 138 mmol/L (136-145); Troponin (Emerg Dept Use Only) < 0.02 ng/mL (0.0-0.045)
--- NOTE | 2019-03-31 19:31 | ER ---
Nurse's Notes [facility] Name: Adelita Lemons Age: 58 yrs Sex: Female : 1960 Arrival Date: 03/31/2019 Time: 17:06 Bed 11 Private MD: Jose Antonio Currie E Diagnosis: Benign Positional Vertigo Presentation: 03/31 17:18 Presenting complaint: Patient states: N/V, dizziness and headache that began yesterday. ss Transition of care: patient was not received from another setting of care. Onset of symptoms was March 30, 2019. Risk Assessment: Do you want to hurt yourself or someone else? Patient reports no desire to harm self or others. Initial Sepsis Screen: Does the patient meet any 2 criteria? HR > 90 bpm. Does the patient have a suspected source of infection? No. Patient's initial sepsis screen is negative. Care prior to arrival: None. 17:18 Method Of Arrival: Ambulatory ss 17:18 Acuity: CRISTAL 3 ss Triage Assessment: 17:52 General: Appears in no apparent distress. Behavior is calm, cooperative, appropriate tw2 for age. Pain: Denies pain. Neuro: Level of Consciousness is awake, alert, obeys commands, Oriented to person, place, time, situation, Reports dizziness. Cardiovascular: Heart tones S1 S2 Patient's skin is warm and dry. Respiratory: Airway is patent Respiratory effort is even, unlabored, Respiratory pattern is regular, symmetrical, Breath sounds are clear bilaterally. GI: Reports nausea, vomiting. : No signs and/or symptoms were reported regarding the genitourinary system. Derm: No signs and/or symptoms reported regarding the dermatologic system. Musculoskeletal: Range of motion: intact in all extremities. Historical: - Allergies: 17:19 Amoxicillin; ss 17:19 morphine-vomiting; ss 17:19 Bactrim; ss - Immunization history:: Adult Immunizations up to date. - Social history:: Smoking status: Patient/guardian denies using tobacco. - Ebola Screening: : Patient denies exposure to infectious person Patient denies travel to an Ebola-affected area in the 21 days before illness onset. Screenin:52 Abuse screen: Denies threats or abuse. Nutritional screening: No deficits noted. tw2 Tuberculosis screening: No symptoms or risk factors identified. Fall Risk None identified. Assessment: 17:53 Reassessment: see triage assessment. tw2 18:42 Reassessment: Patient appears in no apparent distress at this time. No changes from hb previously documented assessment. 19:45 Reassessment: Patient appears in no apparent distress at this time. No changes from wh previously documented assessment. Patient and/or family updated on plan of care and expected duration. Pain level reassessed. Patient is alert, oriented x 3, equal unlabored respirations, skin warm/dry/pink. GI: Abdomen is flat, non-distended. 20:49 Reassessment: Patient appears in no apparent distress at this time. Patient and/or wh family updated on plan of care and expected duration. Pain level reassessed. Patient is alert, oriented x 3, equal unlabored respirations, skin warm/dry/pink. Vital Signs: 17:19 BP 154 / 120; Pulse 107; Resp 16; Temp 98.6(TE); Pulse Ox 98% on R/A; Weight 88.9 kg; ss Height 6 ft. 3 in. (190.50 cm); Pain 8/10; 18:42 BP 177 / 102; Pulse 87; Resp 15; Pulse Ox 100% on R/A; hb 19:29 BP 185 / 98; Pulse 89; Resp 18; Pulse Ox 100% on R/A; ak1 19:50 BP 167 / 94; Pulse 90; Resp 18; Pulse Ox 98% on R/A; wh 17:19 Body Mass Index 24.50 (88.90 kg, 190.50 cm) ED Course: 17:06 Patient arrived in ED. rg4 17:07 Jose Antonio Currie MD is Private Physician. rg4 17:19 Triage completed. ss 17:19 Arm band placed on right wrist. ss 17:22 Placed in gown. Bed in low position. Call light in reach. Side rails up X2. Cardiac tw2 monitor on. Pulse ox on. NIBP on. Warm blanket given. 17:31 Thiago Correa NP is PHCP. pm1 17:31 Ranjan Rendon MD is Attending Physician. pm1 17:41 Lulú Dunn RN is Primary Nurse. tw2 17:46 CT completed. Patient tolerated procedure well. Patient moved to CT via wheelchair. nj Patient moved back from CT. 17:50 Missed attempt(s): 22 gauge in left antecubital area. Bleeding controlled, band aid tw2 applied, catheter tip intact. 18:02 Inserted saline lock: 22 gauge in right wrist, using aseptic technique. Blood collected.hb 18:08 EKG done, by electronics repair technician. reviewed by Thiago Correa NP. sm3 18:15 CT Head Brain wo Cont In Process Unspecified. EDMS 18:27 XRAY Chest (1 view) In Process Unspecified. EDMS 19:08 Report given to Mario. tw2 20:49 No provider procedures requiring assistance completed. IV discontinued, intact, wh bleeding controlled, No redness/swelling at site. Administered Medications: 18:19 Drug: NS 0.9% 1000 ml Route: IV; Rate: 1000 ml; Site: right forearm; tw2 20:52 Follow up: Response: No adverse reaction; IV Status: Completed infusion 18:23 Drug: Meclizine 25 mg Route: PO; tw2 19:26 Follow up: Response: No adverse reaction ak1 18:30 Drug: Tylenol 1000 mg Route: PO; tw2 19:27 Follow up: Response: No adverse reaction ak1 19:23 Drug: Zofran 4 mg Route: IVP; Site: right wrist; ak1 19:27 Follow up: Response: No adverse reaction ak1 19:24 Drug: fentaNYL (PF) 25 mcg Route: IVP; Site: right wrist; ak1 19:27 Follow up: Response: No adverse reaction ak1 20:07 Drug: Valium 5 mg Route: PO; wh 20:49 Follow up: Response: No adverse reaction Outcome: 19:30 Discharge ordered by . pm1 20:50 Discharged to home ambulatory, with family. 20:50 Condition: improved 20:50 Discharge instructions given to patient, family, Instructed on discharge instructions, follow up and referral plans. no drinking with medication, no driving heavy equipment, medication usage, POC Vertigo Demonstrated understanding of instructions, follow-up care, medications, POC Prescriptions given X 1. 20:52 Patient left the ED. Signatures: Dispatcher [employer] EDMS Meredith Brady RN RN Rina Pierce RN RN ak1 Thiago Correa, EDOUARD COMPUTER SYSTEMS INFORMATION DIRECTOR pm1 Perri Mack RN RN hb Wise, Tara, RN RN tw2 Gladis Werner 4 Luis, OrlandoYadira Dorantes Shakira 3
--- NOTE | 2019-03-31 19:31 | EDPHYS ---
Physician Documentation [facility] Name: Adelita Lemons Age: 58 yrs Sex: Female : 1960 Arrival Date: 03/31/2019 Time: 17:06 Bed 11 Private MD: Jose Antonio Currie E ED Physician Ranjan Rendon HPI: 03/31 18:00 This 58 yrs old Female presents to ER via Ambulatory with complaints of pm1 Nausea/Vomiting, Dizziness. 18:00 The patient presents to the emergency department with nausea, vomiting, room spinning. pm1 04/01 04:18 Onset: The symptoms/episode began/occurred yesterday. Possible causes: unknown. The pm1 symptoms are aggravated by movement of head and changing positions The symptoms are alleviated by remaining still. Associated signs and symptoms: Pertinent positives: headache, Pertinent negatives: abdominal pain, constipation, diarrhea, dysuria, fever. Severity of symptoms: in the emergency department the symptoms are unchanged. The patient has not experienced similar symptoms in the past. The patient has not recently seen a physician. Historical: - Allergies: 03/31 17:19 Amoxicillin; ss 17:19 morphine-vomiting; ss 17:19 Bactrim; ss - Immunization history:: Adult Immunizations up to date. - Social history:: Smoking status: Patient/guardian denies using tobacco. - Ebola Screening: : Patient denies exposure to infectious person Patient denies travel to an Ebola-affected area in the 21 days before illness onset. ROS: 04/01 04:18 Constitutional: Negative for fever, chills, and weight loss, Eyes: Negative for injury, pm1 pain, redness, and discharge, ENT: Negative for injury, pain, and discharge, Neck: Negative for injury, pain, and swelling, Cardiovascular: Negative for chest pain, palpitations, and edema, Respiratory: Negative for shortness of breath, cough, wheezing, and pleuritic chest pain, Back: Negative for injury and pain. : Negative for injury, bleeding, discharge, and swelling, MS/Extremity: Negative for injury and deformity, Skin: Negative for injury, rash, and discoloration. Abdomen/GI: Positive for nausea and vomiting, Negative for abdominal pain, diarrhea, constipation. Neuro: Positive for dizziness, headache. Exam: 03/31 18:01 ECG: NSR, 86 BPM, right atrial enlargement pm1 04/01 04:18 Constitutional: This is a well developed, well nourished patient who is awake, alert, pm1 and in no acute distress. Head/Face: Normocephalic, atraumatic. ENT: Nares patent. No nasal discharge, no septal abnormalities noted. Tympanic membranes are normal and external auditory canals are clear. Oropharynx with no redness, swelling, or masses, exudates, or evidence of obstruction, uvula midline. Mucous membranes moist. Neck: Trachea midline, no thyromegaly or masses palpated, and no cervical lymphadenopathy. Supple, full range of motion without nuchal rigidity, or vertebral point tenderness. No Meningismus. Chest/axilla: Normal chest wall appearance and motion. Nontender with no deformity. No lesions are appreciated. Cardiovascular: Regular rate and rhythm with a normal S1 and S2. No gallops, murmurs, or rubs. Normal PMI, no JVD. No pulse deficits. Respiratory: Lungs have equal breath sounds bilaterally, clear to auscultation and percussion. No rales, rhonchi or wheezes noted. No increased work of breathing, no retractions or nasal flaring. Abdomen/GI: Soft, non-tender, with normal bowel sounds. No distension or tympany. No guarding or rebound. No evidence of tenderness throughout. Back: No spinal tenderness. No costovertebral tenderness. Full range of motion. Skin: Warm, dry with normal turgor. Normal color with no rashes, no lesions, and no evidence of cellulitis. MS/ Extremity: Pulses equal, no cyanosis. Neurovascular intact. Full, normal range of motion. Eyes: Periorbital structures: appear normal, Pupils: no acute changes, Extraocular movements: intact throughout, Nystagmus: vestibular nystagmus present . Neuro: Orientation: is normal, Cranial nerves: CN II- XII are normal as tested, Cerebellar function: normal finger to nose testing, Motor: is normal, moves all fours. Vital Signs: 03/31 17:19 BP 154 / 120; Pulse 107; Resp 16; Temp 98.6(TE); Pulse Ox 98% on R/A; Weight 88.9 kg; ss Height 6 ft. 3 in. (190.50 cm); Pain 8/10; 18:42 BP 177 / 102; Pulse 87; Resp 15; Pulse Ox 100% on R/A; hb 19:29 BP 185 / 98; Pulse 89; Resp 18; Pulse Ox 100% on R/A; ak1 19:50 BP 167 / 94; Pulse 90; Resp 18; Pulse Ox 98% on R/A; wh 17:19 Body Mass Index 24.50 (88.90 kg, 190.50 cm) ss MDM: 17:37 Patient medically screened. pm1 19:29 Data reviewed: vital signs. Data interpreted: Pulse oximetry: on room air is 100 %. pm1 Interpretation: normal. Counseling: I had a detailed discussion with the patient and/or guardian regarding: the historical points, exam findings, and any diagnostic results supporting the discharge/admit diagnosis, lab results, radiology results, the need for outpatient follow up, to return to the emergency department if symptoms worsen or persist or if there are any questions or concerns that arise at home. 03/31 17:38 Order name: Basic Metabolic Panel; Complete Time: 19:07 pm1 03/31 17:38 Order name: CBC with Diff; Complete Time: 19:48 pm1 03/31 17:38 Order name: LFT's; Complete Time: 19:07 pm1 03/31 17:38 Order name: Magnesium; Complete Time: 19:07 pm1 03/31 17:38 Order name: NT PRO-BNP; Complete Time: 19:07 pm1 03/31 17:38 Order name: PT-INR; Complete Time: 18:27 pm1 03/31 17:38 Order name: Troponin (emerg Dept Use Only); Complete Time: 19:07 pm1 03/31 17:38 Order name: XRAY Chest (1 view); Complete Time: 19:58 pm1 03/31 17:38 Order name: CT Head Brain wo Cont; Complete Time: 18:26 pm1 03/31 19:41 Order name: CBC Smear Scan; Complete Time: 19:48 EDMS 03/31 17:38 Order name: EKG; Complete Time: 17:39 pm1 03/31 17:38 Order name: Cardiac monitoring; Complete Time: 17:47 pm1 03/31 17:38 Order name: EKG - Nurse/Tech; Complete Time: 18:20 pm1 03/31 17:38 Order name: IV Saline Lock; Complete Time: 18:20 pm1 03/31 17:38 Order name: Labs collected and sent; Complete Time: 18:20 pm1 03/31 17:38 Order name: O2 Per Protocol; Complete Time: 17:47 pm1 03/31 17:38 Order name: O2 Sat Monitoring; Complete Time: 17:47 pm1 Administered Medications: 18:19 Drug: NS 0.9% 1000 ml Route: IV; Rate: 1000 ml; Site: right forearm; tw2 20:52 Follow up: Response: No adverse reaction; IV Status: Completed infusion 18:23 Drug: Meclizine 25 mg Route: PO; tw2 19:26 Follow up: Response: No adverse reaction ak1 18:30 Drug: Tylenol 1000 mg Route: PO; tw2 19:27 Follow up: Response: No adverse reaction ak1 19:23 Drug: Zofran 4 mg Route: IVP; Site: right wrist; ak1 19:27 Follow up: Response: No adverse reaction ak1 19:24 Drug: fentaNYL (PF) 25 mcg Route: IVP; Site: right wrist; ak1 19:27 Follow up: Response: No adverse reaction ak1 20:07 Drug: Valium 5 mg Route: PO; 20:49 Follow up: Response: No adverse reaction Disposition: 04/01 16:39 Co-signature as Attending Physician, Ranjan Rendon MD. Disposition: 03/31/19 19:30 Discharged to Home. Impression: Benign Positional Vertigo. - Condition is Stable. - Discharge Instructions: Benign Positional Vertigo. - Prescriptions for Valium 2 mg Oral Tablet - take 1 tablet by ORAL route every 8 hours As needed; 20 tablet. - Medication Reconciliation Form, Thank You Letter, Antibiotic Education, Prescription Opioid Use form. - Follow up: Emergency Department; When: As needed; Reason: Worsening of condition. Follow up: Private Physician; When: 2 - 3 days; Reason: Recheck today's complaints, Continuance of care, Re-evaluation by your physician. - Problem is new. - Symptoms have improved. Signatures: Dispatcher [employer] EDMS Meredith Brady RN RN Rina Pierce RN RN ak1 Thiago Correa, SHOE PLANNER SHOE PLANNER pm1 Lulú Dunn RN RN tw2 Yadira Jackson Ranjan Rendon MD MD gs Corrections: (The following items were deleted from the chart) 03/31 19:31 19:30 03/31/2019 19:30 Discharged to Home. Impression: Benign Peripheral Vertigo. pm1 Condition is Stable. Forms are Medication Reconciliation Form, Thank You Letter, Antibiotic Education, Prescription Opioid Use. Follow up: Emergency Department; When: As needed; Reason: Worsening of condition. Follow up: Private Physician; When: 2 - 3 days; Reason: Recheck today's complaints, Continuance of care, Re-evaluation by your physician. Problem is new. Symptoms have improved. pm1 20:52 19:31 03/31/2019 19:30 Discharged to Home. Impression: Benign Positional Vertigo. wh Condition is Stable. Discharge Instructions: Benign Positional Vertigo. Forms are Medication Reconciliation Form, Thank You Letter, Antibiotic Education, Prescription Opioid Use. Follow up: Emergency Department; When: As needed; Reason: Worsening of condition. Follow up: Private Physician; When: 2 - 3 days; Reason: Recheck today's complaints, Continuance of care, Re-evaluation by your physician. Problem is new. Symptoms have improved. pm1
[2019-03-31] MEDS ORDERED: ONDANSETRON 4 MG/2 ML VIAL ONE (19:32)
[2019-03-31] MEDS ORDERED: FENTANYL CITR 100 MCG/2 ML ONE (19:32)
[2019-03-31 19:40] LABS: Urine White Blood Cell Casts OK
[2019-03-31 19:41] LABS: Blood Morphology Comment NOT SEEN (NOT SEEN); Platelet Estimate ADEQ
--- NOTE | 2019-03-31 19:52 | RAD REPORT ---
EXAM DESCRIPTION: RAD - Chest Single View - 03/31/2019 6:29 pm CLINICAL HISTORY: Shortness of breath, weakness, dizziness COMPARISON: January 2018 TECHNIQUE: AP portable chest image was obtained 1827 hours . FINDINGS: Lungs are clear. Heart and vasculature are normal. No measurable pleural effusion and no p neumothorax. No acute bony abnormality seen. No acute aortic findings suspected. IMPRESSION: No acute cardiopulmonary process. No significant interval change.
[2019-03-31] MEDS ORDERED: DIAZEPAM 5 MG TABLET ONE (20:14)
[2019-03-31 20:57] VITALS: TEMP 98.6
[2019-03-31 21:02] VITALS: BP 167/94; O2SAT 98
--- NOTE | 2019-04-03 15:12 | EKG ---
Test Date: 2019-03-31 Test Time: 17:53:13 Auto Body Worker: RODNEY MEASUREMENT RESULTS: Intervals: Rate: 86 TN: 146 QRSD: 94 QT: 374 QTc: 447 [place]: P: 81 TN: 146 QRS: 74 T: 65 INTERPRETIVE STATEMENTS: Normal sinus rhythm Right atrial enlargement Borderline ECG Compared to ECG 02/04/2018 20:59:05 Atrial abnormality now present Electronically Signed On 04-03-19 15:10:57 CDT by Amrik Garcia
== END 2019-03-31 20:52 | disposition home or self-care (01) ==
LOC: ER 17:04
DX: H81.10 Benign paroxysmal vertigo, unspecified ear (principal); Z88.1 Allergy status to other antibiotic agents; Z88.5 Allergy status to narcotic agent
CPT/HCPCS: 36415; 70450; 71045; 80048; 80076; 83735; 83880; 84484; 85025; 85610; 93005; 96361; 96374; 96375; 99285; J2405; J3010; J7030

== ENCOUNTER 2019-09-26 06:55 | Day surgery (SDC) | payer OTHER ==
[2019-09-26] MEDS ORDERED: Ringers Lactate 1,000 ML IV ONE (07:53)
[2019-09-26] MEDS ORDERED: FENTANYL CITR 100 MCG/2 ML ONE (08:18)
[2019-09-26] MEDS ORDERED: PROPOFOL 200 MG/20 ML VIAL IV ONE (09:13)
[2019-09-26] MEDS ORDERED: LIDOCAINE 1% MPF 5 ML VIAL ONE (09:13)
[2019-09-26] MEDS ORDERED: BOTU TOX TYPE A 100 UNIT/VIAL ID ONE (09:25)
--- NOTE | 2019-09-26 09:49 | ENDO RPT ---
[address], [address] EGD PROCEDURE REPORT EXAM DATE: 09/26/2019 PATIENT NAME: Adelita Lemons MR#: [id number] BIRTHDATE: 1960 ATTENDING: Jose Antonio Almeida Dr STATUS: outpatient REGENERATION OPERATOR: Viviane Urbano RN and Leticia Rascon RN INDICATIONS: The patient is a 59 yr old Female here for an EGD due to dysphagia, abnormal radiology esophagram revealing an hypertrophied cricopharyngeus muscle with reduced opening of the upper esophageal sphincter PROCEDURE PERFORMED: EGD with scleroneedle injection MEDICATIONS: Per Anesthesia. TOPICAL ANESTHETIC: none CONSENT: The patient understands the risks and benefits of the procedure and understands that these risks include, but are not limited to: sedation, allergic reaction, infection, perforation and/or bleeding. Alternative means of evaluation and treatment include, among others: physical exam, x-rays, and/or surgical intervention. The patient elects to proceed with this endoscopic procedure. DESCRIPTION OF PROCEDURE: During intra-op preparation period all mechanical medical equipment was checked for proper function. Hand hygiene and appropriate measures for infection prevention was taken. Procedure, possible complications, and alternatives including but not limited to the possibility of bleeding, perforation, tear, infection, sepsis, need for surgery, need for blood transfusion, and anesthesia related complications were explained to the patient. After the risks, benefits and alternatives of the procedure were thoroughly explained, Informed consent was verified, confirmed and timeout was successfully executed by the treatment team. The patient was placed in the left lateral position. The patient was anesthetized with topical anesthesia. Through the anesthetized oropharyngeal area, the scope was passed without any difficulty. The EG-[id number] ([id number]) endoscope was introduced through the mouth and advanced to the second portion of the duodenum. Retroflexed views revealed a small hiatal hernia. The gastroscope was then slowly withdrawn and removed. A stricture was found in the upper esophagus. Sclerotherapy was performed with absolute alcohol injection. A small hiatal hernia was found ADVERSE EVENTS: There were no complications. IMPRESSIONS: 1. 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 Small hiatal hernia RECOMMENDATIONS: 1. follow-up: GI clinic 1 week(s) 2. continue acid suppression therapy with anti-reflux regimen REPEAT EXAM: Jose Antonio Almeida Dr eSigned: Jose Antonio Almeida Dr 09/26/2019 9:49 AM cc: Jose Antonio Currie CPT CODES: ICD9 CODES: PATIENT NAME: Cristo Adelita S. MR#: [id number]
[2019-09-26 13:15] VITALS: O2SAT 100
[2019-09-26 13:19] VITALS: BP 147/80; TEMP 98.8
== END 2019-09-26 10:24 | disposition home or self-care (01) ==
LOC: OR 06:55
PROVIDERS: ATTEND Internal Medicine Gastroenterology
PROC: 3E0G8GC Introduction of Other Therapeutic Substance into Upper GI, Via Natural or Artificial Opening Endoscopic (ICD-10-PCS; principal; 2019-09-26 09:15)
DX: K22.2 Esophageal obstruction (principal); M62.89 Other specified disorders of muscle; K44.9 Diaphragmatic hernia without obstruction or gangrene; K21.9 Gastro-esophageal reflux disease without esophagitis; M19.90 Unspecified osteoarthritis, unspecified site; Z88.0 Allergy status to penicillin; Z88.6 Allergy status to analgesic agent; Z90.710 Acquired absence of both cervix and uterus
CPT/HCPCS: 43236; J2704; J0585; J3010; J7120

== ENCOUNTER 2021-06-18 08:24 | Emergency (ER) | payer OTHER ==
--- OUTSIDE RECORDS SUMMARY | 2021-06-18 08:28 | XMS REPORT | Continuity of Care Document ---
:1960 Author Organization [facility] t Address [address] [place] [address] Care Team Providers Name Role Phone TRINA Attending Clinician Unavailable MD Erik MENA Attending Clinician Unavailable ZAIRA Attending Clinician Unavailable STEPHEN Attending Clinician Unavailable Pcp, Does Not Have A Attending Clinician Lab, Fam Pob I Attending Clinician Unavailable Doctor Unassigned, Name Attending Clinician Unavailable GERMÁN Attending Clinician Unavailable ERGUN Attending Clinician Unavailable LORI Attending Clinician Unavailable NAYAN Attending Clinician Unavailable THETIFFANIE Admitting Clinician Unavailable JEANMARIE CEDENO NP M Admitting Clinician Unavailable ERGUN Admitting Clinician Unavailable Problems Condition Condition Condition Status Onset Resolution Last Treating Co mments Source Name Details Category Date Date Treatment Clinician Date Cervical Cervical Problem Active Unive rs dysphagia dysphagia [facility] [place] [facility] Heartburn Heartburn Problem Active Uni vers [facility] [place] [facility] Gastric Gastric Problem Active Univers regurgitat regurgitat it y of ion ion [place] [facility] Weight Weight Problem Active Univers loss, loss, ity [place] [facility] Belching Belching Problem Active Unive rs [facility] [place] [facility] Esophageal Esophageal Problem Active U nivers dysmotilit dysmotilit it y of y y [place] [facility] Hiatal Hiatal Problem Active Univers hernia hernia [facility] [place] [facility] Achalasia Achalasia Problem Active Uni vers [facility] [place] [facility] Allergies, Adverse Reactions, Alerts Allergy Allergy Status Severity Reaction(s) Onset Inactive Treating Comm ents Source Name Type Date Date Clinician morphine drug Active [facility] allergy [facility] [place] [facility] amoxicil drug Active Univers maria eugenia allergy [facility] [place] [facility] Social History Smoking Status Start Date Stop Date Source Never smoker [facility] [place] mykels Physicians Medications Ordered Filled Start Stop Current Ordering Indication Dosage Frequency Signature Comments Components Source Medication Medication Date Date Medication? Clinician (SIG) Name Name traMADol traMADol Yes Univers HCl - 50 MG HCl - 50 MG i ty of Oral Tablet Oral Tablet [place] [facility] Cyclobenzap Cyclobenzap Yes U nivers rine HCl - rine HCl - ity of 10 MG Oral 10 MG Oral [place] as Tablet Tablet Physici ans Promethazin Promethazin Yes U nivers e HCl - e HCl - ity of 12.5 MG 12.5 MG [place] Oral Tablet Oral Tablet P hysici ans Omeprazole Omeprazole Yes Uni vers 40 MG Oral 40 MG Oral ity of Capsule Capsule [place] Delayed Delayed Physici Release Release ans Meloxicam Meloxicam Yes Unive rs 15 MG Oral 15 MG Oral ity of Tablet Tablet [place] [facility] Vital Signs Vital Name Observation Time Observation Value Comments Source BP Systolic 2019-11-01 144 mm[Hg] Location: [facility] 14:32:00 Position: [place] [facility] S[facility] BP Diastolic 2019-11-01 86 mm[Hg] Location: [facility] 14:32:00 Position: [place] [facility] Height 2019-11-01 75 [in_us] [facility] 14:32:00 [place] [facility] Weight 2019-11-01 194.25 [lb_av] :32:00 [place] [facility] Body Mass Index 2019-11-01 24.28 kg/m2 University o f Calculated 14:32:00 [place] [facility] Temperature 2019-11-01 99.2 [degF] Method: Oral :32:00 [place] [facility] Heart Rate 2019-11-01 103 /min [facility] 14:32:00 [place] [facility] Respiration Rate 2019-11-01 20 /min [facility] 14:32:00 [place] [facility] O2 SAT 2019-11-01 98 % Source: [facility] 14:32:00 [place] [facility] BP Systolic 2019-10-18 154 mm[Hg] Location: [facility] 10:58:00 Position: [place] [facility] S[facility] BP Diastolic 2019-10-18 93 mm[Hg] Location: [facility] 10:58:00 Position: [place] [facility] S[facility] Height 2019-10-18 75 [in_us] [facility] 10:58:00 [place] [facility] Weight 2019-10-18 187.125 [lb_av] University o f 10:58:00 [place] [facility] Body Mass Index 2019-10-18 23.39 kg/m2 University o f Calculated 10:58:00 [place] [facility] Temperature 2019-10-18 98.7 [degF] Method: Oral [facility] 10:58:00 [place] [facility] Heart Rate 2019-10-18 107 /min Location: R [facility] 10:58:00 Radial; [place] [facility] Respiration Rate 2019-10-18 22 /min [facility] 10:58:00 [place] [facility] O2 SAT 2019-10-18 98 % Source: RA [facility] 10:58:00 [place] [facility] Procedures Procedure Date / Time Performing Clinician Source Performed [facility] History of Appendectomy [facility] Physicians History of Cholecystectomy [facility] Laparoscopic Physicians History of Hysterectomy [facility] Physicians History of Knee [facility], [place] [place] Replacement Physicians History of Hip Replacement [facility] Physicians History of Simple Bunion [facility] Exostectomy ([place] [facility] Procedure) Encounters Start End Encounter Admission Attending Care Care Encounter Source Date/Time Date/Time Type Type Clinicians Facility Department ID 2021-03-11 2021-03-11 Outpatient THEI [facility] [id number] [place] 00:00:00 00:00:00 CHU 763 Method i 2021-02-26 2021-02-26 Outpatient THESYDNII [facility] [id number] [place] 00:00:00 00:00:00 CHU 635 Method i 2021-02-24 2021-02-24 Outpatient THEI, [facility] [id number] [place] 00:00:00 00:00:00 CHU 779 Method i 2021-01-08 2021-01-08 Outpatient THEI [facility] [id number] [place] 00:00:00 00:00:00 CHU 704 Method i 2020-11-28 2020-11-28 Outpatient THEI [facility] [id number] [place] 00:00:00 00:00:00 CHU 101 Method i 2020-11-20 2020-11-20 Outpatient PETAK, [facility] [id number] [place] 00:00:00 00:00:00 JACQUI 050 Method i 2020-11-11 2020-11-11 Outpatient TRINA [facility] [id number] [place] 00:00:00 00:00:00 CHU 428 Method i 2020-10-30 2020-10-30 Outpatient TRINA [facility] [id number] [place] 00:00:00 00:00:00 CHU 447 Method i 2020-10-30 2020-10-30 Outpatient STEPHEN, [facility] [id number] [place] 00:00:00 00:00:00 KATEY 260 Method i 2020-10-30 2020-10-30 Outpatient STEPHEN, [facility] [id number] [place] 00:00:00 00:00:00 KATEY 261 Method i 2020-10-23 2020-10-23 Telephone Pcp, [facility] [id number] 00:00:00 00:00:00 Patient Health [id number] Does Not [place] [id number] Have A Professio [phone] nal 044 [address] One 2020-10-05 2020-10-05 Laboratory Lab, [facility] [id number] 15:32:07 15:52:07 Only Fam Pob I Health [id number] [place] [id number] Professio [phone] nal 044 Office [address] One 2020-10-05 2020-10-05 Letter Doctor TALIB [id number] 00:00:00 00:00:00 (Out) Unassigned, LÓPEZ [id number] [place] [facility] [id number] [id number] 2020-10-03 2020-10-03 Outpatient STEPHEN, [facility] [id number] [place] 00:00:00 00:00:00 KATEY 640 Method i 2020-09-26 2020-09-26 Outpatient [facility] [id number] [place] 00:00:00 00:00:00 219 Method i 2020-09-23 2020-09-23 Outpatient DUNLAP, [facility] [id number] [place] 00:00:00 00:00:00 BROWN 868 Method i 2020-09-23 2020-09-23 Outpatient DUNLAP, [facility] [id number] [place] 00:00:00 00:00:00 BROWN [address] 2020-09-23 2020-09-23 Outpatient DUNLAP, [facility] [id number] [place] 00:00:00 00:00:00 BROWN [address] 2020-09-23 2020-09-23 Outpatient DUNLAP, [facility] [id number] [place] 00:00:00 00:00:00 BROWN 076 Method i 2020-09-23 2020-09-23 Outpatient DUNLAP, [facility] [id number] [place] 00:00:00 00:00:00 BROWN 281 Method i 2020-09-23 2020-09-23 Outpatient DUNLAP, [facility] [id number] [place] 00:00:00 00:00:00 BROWN 555 Method i 2020-07-23 2020-07-23 Outpatient THEKDI, [facility] [id number] [place] 00:00:00 00:00:00 CHU 397 Method i 2020-07-01 2020-07-01 Outpatient ERGUN, [facility] [id number] [place] 00:00:00 00:00:00 GULCHIN 383 Method i 2020-05-01 2020-05-01 Outpatient WINGER, [facility] [id number] [place] 00:00:00 00:00:00 NEHEMIAS 750 Method i 2020-05-01 2020-05-01 Outpatient WINGER, [facility] [id number] [place] 00:00:00 00:00:00 NEHEMIAS 746 Method i 2020-03-19 2020-03-19 Outpatient ERGUN, [facility] [id number] 975 [place] 00:00:00 00:00:00 GULCHIN 523 Method i 2020-02-14 2020-02-14 Outpatient ERGUN, [facility] [id number] [place] 00:00:00 00:00:00 GULCHIN [address] 2020-01-31 2020-01-31 Outpatient ERGUN, [facility] [id number] [place] 00:00:00 00:00:00 GULCHIN 187 Method i 2020-01-02 2020-01-02 Outpatient ERGUN, [facility] [id number] [place] 00:00:00 00:00:00 GULCHIN 723 Method i 2020-01-02 2020-01-02 Outpatient ERGUN, [facility] [id number] [place] 00:00:00 00:00:00 GULCHIN 357 Method i 2020-01-02 2020-01-02 Outpatient ERGUN, [facility] [id number] [place] 00:00:00 00:00:00 GULCHIN 186 Method i 2020-01-02 2020-01-02 Outpatient ERGUN, [facility] [id number] [place] 00:00:00 00:00:00 GULCHIN 131 Method i 2020-01-01 2020-01-01 Outpatient ERGUN, [facility] [id number] [place] 00:00:00 00:00:00 GULCHIN 825 Method i 2020-01-01 2020-01-01 Outpatient ERGUN, [facility] [id number] [place] 00:00:00 00:00:00 GULCHIN 826 Method i 2019-11-01 2019-11-01 Appointmen [facility]EF[facility] [id number] Univers 13:30:00 13:30:00 t; CAREY SPICER Surgery - Parth M[facility] Aleksandra ramirez M.D. Physici ans 2019-10-18 2019-10-18 Appointmen ESTEFANIA SPICER Thoracic [id number] Univers 11:00:00 11:00:00 t; CAREY SPICER Surgery - Nico M.D[facility] Aleksandra ramirez M.D. Physici ans 2019-10-18 2019-10-18 Outpatient MHSE [id number] MH 09:08:00 09:08:00 [facility] Results Test Description Test Time Test Comments Results Result Comments Source SARS-CoV-2 (COVID-19) RNA [Presence] in Respiratory sp ecimen by 2021-02-19 14:44:09 ADELAIDA with probe detection Test Item Value Reference Range Interpretation Comme nts SARS-CoV-2 (COVID-19) RNA [Presence] in Respiratory Not detected No t-Detected specimen by ADELAIDA with probe detection (test code = 94955-8)
[2021-06-18] MEDS ORDERED: FENTANYL CITR 100 MCG/2 ML ONE (09:21)
[2021-06-18] MEDS ORDERED: CIPROFLOXACIN 400mg IV 400 MG/200 ML BAG IV ONE (09:21)
[2021-06-18] MEDS ORDERED: ONDANSETRON 4 MG/2 ML VIAL ONE ×2 (09:21→11:48)
[2021-06-18] MEDS ORDERED: FAMOTIDINE 20 MG/2 ML VIAL IV ONE (09:21)
[2021-06-18] MEDS ORDERED: NA CHLORIDE 0.9% 1,000 ML ONE (09:22)
[2021-06-18] MEDS ORDERED: METRONIDAZOLE 500mg IVPB 500 MG/100 ML BAG IV ONE (09:22)
--- NOTE | 2021-06-18 09:25 | RAD REPORT ---
EXAM DESCRIPTION: RAD - Chest Single View - 06/18/2021 9:16 am CLINICAL HISTORY: CHEST PAIN COMPARISON: Chest Single View dated 03/31/2019; Chest Pa And Lat (2 Views) dated 02/04/2018; Chest Pa And Lat (2 Views) dated 09/08/2017; CHEST SINGLE VIEW dated 03/11/2011 FINDINGS: No evidence of edema or pneumonia. The heart size is within normal limits.No acute osseous abnormality. No significant pleural effusions or pneumothorax. IMPRESSION: No acute cardiopulmonary disease.
[2021-06-18 09:32] LABS: Absolute Lymphocytes (CBC) 1.4 K/uL (0.7-4.9); Basophils % 0.6 % (0-1.3); Hematocrit 32.6 % (36.0-45.0); Lymphocytes % 16.3 % (15.3-44.8); MPV 7.8 fL (7.6-11.3); RBC Red Blood Cell Count 3.82 M/uL (3.86-4.86)
[2021-06-18 09:33] LABS: Protime INR 0.87
[2021-06-18] MEDS ORDERED: PROMETHAZINE INJ 25 MG/ML AMP ONE ×2 (09:33→09:58)
--- NOTE | 2021-06-18 09:44 | RAD REPORT ---
EXAM DESCRIPTION: CT - Chest For Pe Angio - 06/18/2021 9:23 am CLINICAL HISTORY: Chest pain. ABDOMINAL DISTENTION COMPARISON: No comparisons TECHNIQUE: CT angiogram of the pulmonary arteries was performed with MIP. All CT scans are performed using dose optimization technique as appropriate and may include automated exposure control or mA/KV adjustment according to patient size. FINDINGS: No evidence of pulmonary thromboembolism. No acute aortic finding demonstrated. Mild interstitial pulmonary edema suspected. No significant pericardial or pleural fluid. No concerning bony finding. IMPRESSION: No evidence of pulmonary thromboembolism. Mild interstitial pulmonary edema.
[2021-06-18 09:47] LABS: ALT/SGPT 41 U/L (12-78); AST/SGOT 30 U/L (15-37); Albumin 3.8 g/dL (3.4-5.0); Alkaline Phosphatase 85 U/L (45-117); BUN Blood Urea Nitrogen 23 mg/dL (7-18); Bicarbonate 31 mmol/L (21-32); Bilirubin Direct 0.1 mg/dL (0-0.2); Bilirubin Total 0.3 mg/dL (0.2-1.0); Glucose Level 137 mg/dL (74-106); Lipase 259 U/L (73-393); Magnesium 2.1 mg/dL (1.8-2.4); NT PRO-BNP 135 pg/mL (<125); Potassium 3.6 mmol/L (3.5-5.1); Protein, Total 7.2 g/dL (6.4-8.2); Sodium Level 142 mmol/L (136-145); Troponin (Emerg Dept Use Only) < 0.02 ng/mL (0.0-0.045)
--- NOTE | 2021-06-18 09:48 | RAD REPORT ---
EXAM DESCRIPTION: CTAbdomen Pelvis W Contrast - 06/18/2021 9:24 am CLINICAL HISTORY: Abdominal pain. ABD PAIN COMPARISON: CT ABD PELVIS W CONTRAST dated 10/11/2013; CT ABD PELVIS W CONTRAST dated 04/27/2013; CT ABD PELVIS W CONTRAST dated 08/22/2012; CT ABD PELVIS W CONTRAST dated 09/23/2009 TECHNIQUE: Biphasic CT imaging of the abdomen and pelvis was performed with 100 ml non-ionic IV cont rast. All CT scans are performed using dose optimization technique as appropriate and may include automated exposure control or mA/KV adjustment according to patient size. FINDINGS: Mild dependent edema suspected in the lung bases. The liver, spleen, pancreas, adrenal glands and kidneys are within normal limits. Cholecystectomy cli ps. No bowel obstruction, free air, free fluid or abscess. Surgical clips are seen in the central small b owel mesenteric. Soft tissue mass lesion along the left aspect of the small bowel mesentery has a sta ble appearance as far back as 2013 prior study and is does presumed nonaggressive in etiology. The ap pendix is not identified as a discrete structure, however, no secondary findings of appendicitis are identified. No evidence of new or significant lymphadenopathy. Right total hip arthroplasty noted. IMPRESSION: No acute intra-abdominal or pelvic finding.
--- NOTE | 2021-06-18 10:48 | ER ---
Nurse's Notes [facility] Name: Adelita Lemons Age: 60 yrs Sex: Female : 1960 Arrival Date: 06/18/2021 Time: 08:27 Bed 28 Private MD: Diagnosis: Abdominal pain, unspecified-sp colonoscopy;Nausea Presentation: 06/18 08:39 Chief complaint: Patient states: L sided abd pain and nausea that began yesterday after ss colonoscopy. Coronavirus screen: Client denies travel out of the [place] in the last 14 days. Ebola Screen: Patient denies exposure to infectious person. Patient denies travel to an Ebola-affected area in the 21 days before illness onset. Initial Sepsis Screen: Does the patient meet any 2 criteria? No. Patient's initial sepsis screen is negative. Does the patient have a suspected source of infection? No. Patient's initial sepsis screen is negative. Risk Assessment: Do you want to hurt yourself or someone else? Patient reports no desire to harm self or others. Onset of symptoms was June 17, 2021. 08:39 Method Of Arrival: Ambulatory 08:39 Acuity: CRISTAL 3 ss Triage Assessment: 12:06 General: Appears in no apparent distress. Behavior is calm, cooperative, appropriate kg for age, quiet. Pain: Denies pain. Pain: Complains of pain in abdomen. GI: Abdomen is flat, Bowel sounds present X 4 quads. Reports lower abdominal pain, upper abdominal pain, nausea. Historical: - Allergies: 08:41 Amoxicillin; ss 08:41 Bactrim; ss 08:41 morphine-vomiting; ss - PMHx: 08:41 GERD; Hypertension; ss - PSHx: 08:41 R hip replacement; L knee replacement; hysterectomy; Appendectomy; Cholecystectomy; ss Fibrous mass removed from abd; - Immunization history:: Adult Immunizations up to date. - Social history:: Smoking status: Patient denies any tobacco usage or history of. Screenin:05 Abuse screen: Denies threats or abuse. Denies injuries from another. Nutritional kg screening: No deficits noted. Tuberculosis screening: No symptoms or risk factors identified. Fall Risk None identified. No fall in past 12 months (0 pts). No secondary diagnosis (0 pts). No IV (0 pts). Ambulatory Aid- Crutches/Cane/Walker (15 pts). Gait- Weak (10 pts.). Mental Status- Oriented to own ability (0 pts). Total [place] Fall Scale indicates No Risk (0-24 pts). Assessment: 12:07 GI: Abd is soft X 4 quads Abdomen is tender to palpation X 4 quads. kg Vital Signs: 08:39 BP 172 / 91; Pulse 86; Resp 17; Temp 98.6(TE); Pulse Ox 98% on R/A; Weight 94.8 kg; Height 6 ft. 0 in. (182.88 cm); 10:05 BP 111 / 74; ll1 11:00 BP 104 / 64; Pulse 62; Resp 20; Pulse Ox 99% on R/A; kg 12:04 BP 109 / 67; Pulse 57; Resp 20; Pulse Ox 100% on R/A; kg 08:39 Body Mass Index 28.35 (94.80 kg, 182.88 cm) ED Course: 08:27 Patient arrived in ED. mr 08:28 Radames Phillips MD is Attending Physician. carla 08:41 Triage completed. ss 08:41 Arm band placed on right wrist. ss 08:55 Gary Pyle, RN is Primary Nurse. ll1 08:55 Inserted saline lock: 20 gauge in left antecubital area, using aseptic technique. Blood ll1 collected. 09:16 XRAY Chest (1 view) In Process Unspecified. EDMS 09:24 CT Chest For PE Angio In Process Unspecified. EDMS 09:24 CT Abd/Pelvis - IV Contrast Only In Process Unspecified. EDMS 09:27 EKG done, by ED staff, reviewed by Radames Phillips MD. em1 12:04 No provider procedures requiring assistance completed. IV discontinued, intact, kg bleeding controlled, No redness/swelling at site. Pressure dressing applied. 12:07 Patient has correct armband on for positive identification. kg Administered Medications: 09:09 Not Given (Duplicate Order): Zofran (Ondansetron) 4 mg IVP once; over 2 minutes carla 09:16 Drug: NS 0.9% 1000 ml Route: IV; Rate: 1 bolus; Site: left antecubital; ll1 10:19 Follow up: Response: No adverse reaction; IV Status: Completed infusion; IV Intake: ll1 1000ml 09:16 Drug: fentaNYL (PF) 25 mcg Route: IVP; Site: left antecubital; 1 09:47 Follow up: Response: No adverse reaction; Pain is unchanged, physician notified; RASS: ll1 Alert and Calm (0) 09:16 Drug: Phenergan (promethazine) 12.5 mg Route: IVP; Site: left antecubital; 1 09:46 Follow up: Response: No adverse reaction; Nausea unchanged ll1 09:46 Drug: Phenergan (promethazine) 12.5 mg Route: IVP; Site: left antecubital; 1 10:18 Follow up: Response: No adverse reaction; RASS: Drowsy (-1) [facility] 09:47 Drug: Pepcid (famotidine) 20 mg Route: IVP; Site: left antecubital; 1 10:19 Follow up: Response: No adverse reaction; RASS: Alert and Calm (0) 1 09:47 Drug: fentaNYL (PF) 25 mcg Route: IVP; Site: left antecubital; 1 10:19 Follow up: Response: No adverse reaction; Pain is decreased; RASS: Alert and Calm (0) [facility] 09:47 Drug: Flagyl (metroNIDAZOLE) 500 mg Volume: 100 ml; Route: IVPB; Rate: 200 ml/hr; ll1 Infused Over: 30 mins; Site: left antecubital; 10:18 Follow up: Response: No adverse reaction; IV Status: Completed infusion; IV Intake: ll1 100ml 10:18 Drug: Cipro (ciprofloxacin) 400 mg Volume: 200 ml; Route: IVPB; Infused Over: 60 mins; ll1 Site: left antecubital; 11:32 Follow up: Response: No adverse reaction; RASS: Alert and Calm (0); IV Status: ll1 Completed infusion; IV Intake: 200ml 11:32 Drug: NS 0.9% 500 ml Route: IV; Rate: bolus; Site: left antecubital; ll1 11:50 Follow up: IV Status: Completed infusion; IV Intake: 500ml kg 11:32 Drug: Zofran (Ondansetron) 4 mg Route: IVP; Site: left antecubital; 1 12:07 Follow up: Response: No adverse reaction kg Intake: 10:18 IV: 100ml; Total: 100ml. ll1 10:19 IV: 1000ml; Total: 1100ml. ll1 11:32 IV: 200ml; Total: 1300ml. ll1 11:50 IV: 500ml; Total: 1800ml. kg Outcome: 10:47 Discharge ordered by . carla 12:06 Discharged to home ambulatory. kg 12:06 Condition: improved 12:06 Discharge instructions given to patient, family, Instructed on discharge instructions, follow up and referral plans. Demonstrated understanding of instructions, follow-up care, medications, Prescriptions given X 3. 12:08 Patient left the ED. kg Signatures: Dispatcher [employer] EDMS Radames Phillips MD MD cha Rivera, Mouna mr Fajardo, Az em1 Meredith Brady RN RN ss Gary Pyle RN RN ll1 Janae Fink RN RN kg
--- NOTE | 2021-06-18 10:48 | EDPHYS ---
Physician Documentation [facility] Name: Adelita Lemons Age: 60 yrs Sex: Female : 1960 Arrival Date: 06/18/2021 Time: 08:27 Bed 28 Private MD: CARMEN Physician Radames Phillips HPI: 06/18 08:47 This 60 yrs old Female presents to ER via Ambulatory with complaints of carla Abdominal Pain, Nausea. 08:47 The patient presents to the emergency department with nausea, abdominal pain, of the carla left upper quadrant. Onset: The symptoms/episode began/occurred 1 day(s) ago. Possible causes: sp colonoscopy yesterday. The symptoms are aggravated by nothing. The symptoms are alleviated by nothing. Associated signs and symptoms: The patient has no apparent associated signs or symptoms. Severity of symptoms: At their worst the symptoms were moderate in the emergency department the symptoms are unchanged. The patient has not experienced similar symptoms in the past. Historical: - Allergies: 08:41 Amoxicillin; ss 08:41 Bactrim; ss 08:41 morphine-vomiting; ss - PMHx: 08:41 GERD; Hypertension; ss - PSHx: 08:41 R hip replacement; L knee replacement; hysterectomy; Appendectomy; Cholecystectomy; ss Fibrous mass removed from abd; - Immunization history:: Adult Immunizations up to date. - Social history:: Smoking status: Patient denies any tobacco usage or history of. ROS: 08:48 Constitutional: Negative for fever, chills, and weight loss, Eyes: Negative for injury, carla pain, redness, and discharge, ENT: Negative for injury, pain, and discharge, Neck: Negative for injury, pain, and swelling, Cardiovascular: Negative for chest pain, palpitations, and edema, Back: Negative for injury and pain, : Negative for injury, bleeding, discharge, and swelling, MS/Extremity: Negative for injury and deformity, Skin: Negative for injury, rash, and discoloration, Neuro: Negative for headache, weakness, numbness, tingling, and seizure, Psych: Negative for depression, anxiety, suicide ideation, homicidal ideation, and hallucinations, Allergy/Immunology: Negative for hives, rash, and allergies, Endocrine: Negative for neck swelling, polydipsia, polyuria, polyphagia, and marked weight changes, Hematologic/Lymphatic: Negative for swollen nodes, abnormal bleeding, and unusual bruising. 08:48 Respiratory: Positive for cough, with no reported sputum, pleurisy, of the left lateral posterior chest, left lateral anterior chest and left breast. 08:48 Abdomen/GI: Positive for abdominal pain, nausea and vomiting, of the left upper quadrant. Exam: 08:48 Constitutional: This is a well developed, well nourished patient who is awake, alert, carla and in no acute distress. Head/Face: Normocephalic, atraumatic. Eyes: Pupils equal round and reactive to light, extra-ocular motions intact. Lids and lashes normal. Conjunctiva and sclera are non-icteric and not injected. Cornea within normal limits. Periorbital areas with no swelling, redness, or edema. ENT: Nares patent. No nasal discharge, no septal abnormalities noted. Tympanic membranes are normal and external auditory canals are clear. Oropharynx with no redness, swelling, or masses, exudates, or evidence of obstruction, uvula midline. Mucous membranes moist. Neck: Trachea midline, no thyromegaly or masses palpated, and no cervical lymphadenopathy. Supple, full range of motion without nuchal rigidity, or vertebral point tenderness. No Meningismus. Chest/axilla: Normal chest wall appearance and motion. Nontender with no deformity. No lesions are appreciated. Cardiovascular: Regular rate and rhythm with a normal S1 and S2. No gallops, murmurs, or rubs. Normal PMI, no JVD. No pulse deficits. Respiratory: Lungs have equal breath sounds bilaterally, clear to auscultation and percussion. No rales, rhonchi or wheezes noted. No increased work of breathing, no retractions or nasal flaring. Abdomen/GI: Soft, non-tender, with normal bowel sounds. No distension or tympany. No guarding or rebound. No evidence of tenderness throughout. Back: No spinal tenderness. No costovertebral tenderness. Full range of motion. Skin: Warm, dry with normal turgor. Normal color with no rashes, no lesions, and no evidence of cellulitis. MS/ Extremity: Pulses equal, no cyanosis. Neurovascular intact. Full, normal range of motion. Neuro: Awake and alert, GCS 15, oriented to person, place, time, and situation. Cranial nerves II-XII grossly intact. Motor strength 5/5 in all extremities. Sensory grossly intact. Cerebellar exam normal. Normal gait. Psych: Awake, alert, with orientation to person, place and time. Behavior, mood, and affect are within normal limits. 09:08 ECG was reviewed by the Attending Physician. carla 10:42 Musculoskeletal/extremity: DVT Exam: No signs of deep vein thrombosis. no pain, no carla swelling, no tenderness, negative Homans' sign noted on exam, no appreciated bluish discoloration, no erythema, no increased warmth. Vital Signs: 08:39 BP 172 / 91; Pulse 86; Resp 17; Temp 98.6(TE); Pulse Ox 98% on R/A; Weight 94.8 kg; ss Height 6 ft. 0 in. (182.88 cm); 10:05 BP 111 / 74; ll1 11:00 BP 104 / 64; Pulse 62; Resp 20; Pulse Ox 99% on R/A; kg 12:04 BP 109 / 67; Pulse 57; Resp 20; Pulse Ox 100% on R/A; kg 08:39 Body Mass Index 28.35 (94.80 kg, 182.88 cm) ss MDM: 08:37 Patient medically screened. carla 08:49 Differential diagnosis: abnormal EKG, chest wall pain, Nonspecific abd pain, gastritis, carla cholecystitis, pancreatitis, diverticulitis, viral gastroenteritis, gastroenteritis. HEART Score: History: Slightly Suspicious (0), ECG: Normal (0), Age: > 45 and < 65 years (1), Risk Factors: 1 or 2 risk factors (1), [Hypertension] [+ Family HX] Troponin: < or = 1 x Normal Limit (0), Total Score = 2. The patient was not given aspirin in the Emergency Department. Not indicated due to patient's past medical history. The patient's deep vein thrombosis risk score was calculated as follows: Total Score: 0. This patient was found to be at low risk for a deep vein thrombosis by using the Well's assessment criteria. The patient's pulmonary embolism risk score was calculated as follows: Total Score: 0-2 points. This patient was found to be at low risk for a pulmonary embolism by using the Well's assessment criteria. YOHAN Risk Score: TOTAL SCORE = 0. Data reviewed: vital signs, nurses notes, lab test result(s), CBC, electrolytes, hepatic panel, EKG, radiologic studies, CT scan, plain films. Data interpreted: athletic monitor: rate is 86 beats/min, rhythm is regular, Pulse oximetry: on room air is 98 %. Test interpretation: by ED physician or midlevel provider: ECG, plain radiologic studies. 06/18 08:46 Order name: Basic Metabolic Panel; Complete Time: 10:28 [facility] 06/18 08:46 Order name: CBC with Diff; Complete Time: 10:28 [facility] 06/18 08:46 Order name: LFT's; Complete Time: 10:28 [facility] 06/18 08:46 Order name: Magnesium; Complete Time: 10:28 [facility] 06/18 08:46 Order name: NT PRO-BNP; Complete Time: 10:28 [facility] 06/18 08:46 Order name: PT-INR; Complete Time: 10:28 [facility] 06/18 08:46 Order name: Troponin (emerg Dept Use Only); Complete Time: 10:28 [facility] 06/18 08:46 Order name: XRAY Chest (1 view); Complete Time: 10:28 [facility] 06/18 08:46 Order name: Lipase; Complete Time: 10:28 [facility] 06/18 08:46 Order name: CT Chest For PE Angio; Complete Time: 10:28 [facility] 06/18 08:46 Order name: CT Abd/Pelvis - IV Contrast Only; Complete Time: 10:28 [facility] 06/18 09:45 Order name: CREATININE WHOLE BLOOD; Complete Time: 10:28 [facility] 06/18 08:46 Order name: EKG; Complete Time: 08:47 [facility] 06/18 08:46 Order name: Cardiac monitoring; Complete Time: 08:51 [facility] 06/18 08:46 Order name: EKG - Nurse/Tech; Complete Time: 09:26 [facility] 06/18 08:46 Order name: IV Saline Lock; Complete Time: 08:51 [facility] 06/18 08:46 Order name: Labs collected and sent; Complete Time: 08:50 [facility] 06/18 08:46 Order name: O2 Per Protocol; Complete Time: 08:50 [facility] 06/18 08:46 Order name: O2 Sat Monitoring; Complete Time: 08:50 [facility] EC:08 Rate is 77 beats/min. Rhythm is regular. QRS [place] is Normal. [place] interval is normal. QRS carla interval is normal. QT interval is normal. No Q waves. T waves are Normal. No ST changes noted. Clinical impression: NSR w/ Non-specific ST/T Changes and No evidence of ischemia. Interpreted by me. Reviewed by me. Administered Medications: 09:09 Not Given (Duplicate Order): Zofran (Ondansetron) 4 mg IVP once; over 2 minutes carla 09:16 Drug: NS 0.9% 1000 ml Route: IV; Rate: 1 bolus; Site: left antecubital; ll1 10:19 Follow up: Response: No adverse reaction; IV Status: Completed infusion; IV Intake: ll1 1000ml 09:16 Drug: fentaNYL (PF) 25 mcg Route: IVP; Site: left antecubital; 1 09:47 Follow up: Response: No adverse reaction; Pain is unchanged, physician notified; RASS: ll1 Alert and Calm (0) 09:16 Drug: Phenergan (promethazine) 12.5 mg Route: IVP; Site: left antecubital; 1 09:46 Follow up: Response: No adverse reaction; Nausea unchanged ll1 09:46 Drug: Phenergan (promethazine) 12.5 mg Route: IVP; Site: left antecubital; 1 10:18 Follow up: Response: No adverse reaction; RASS: Drowsy (-1) [facility] 09:47 Drug: Pepcid (famotidine) 20 mg Route: IVP; Site: left antecubital; 1 10:19 Follow up: Response: No adverse reaction; RASS: Alert and Calm (0) 1 09:47 Drug: fentaNYL (PF) 25 mcg Route: IVP; Site: left antecubital; 1 10:19 Follow up: Response: No adverse reaction; Pain is decreased; RASS: Alert and Calm (0) [facility] 09:47 Drug: Flagyl (metroNIDAZOLE) 500 mg Volume: 100 ml; Route: IVPB; Rate: 200 ml/hr; ll1 Infused Over: 30 mins; Site: left antecubital; 10:18 Follow up: Response: No adverse reaction; IV Status: Completed infusion; IV Intake: ll1 100ml 10:18 Drug: Cipro (ciprofloxacin) 400 mg Volume: 200 ml; Route: IVPB; Infused Over: 60 mins; ll1 Site: left antecubital; 11:32 Follow up: Response: No adverse reaction; RASS: Alert and Calm (0); IV Status: ll1 Completed infusion; IV Intake: 200ml 11:32 Drug: NS 0.9% 500 ml Route: IV; Rate: bolus; Site: left antecubital; ll1 11:50 Follow up: IV Status: Completed infusion; IV Intake: 500ml kg 11:32 Drug: Zofran (Ondansetron) 4 mg Route: IVP; Site: left antecubital; ll1 12:07 Follow up: Response: No adverse reaction kg Disposition Summary: 06/18/21 10:47 Discharge Ordered Location: Home [facility] Problem: new carla Symptoms: have improved carla Condition: Stable carla Diagnosis - Abdominal pain, unspecified - sp colonoscopy carla - Nausea carla Followup: carla - With: Private Physician - When: 2 - 3 days - Reason: Recheck today's complaints, Continuance of care, Re-evaluation by your physician Discharge Instructions: - Discharge Summary Sheet carla - Abdominal Pain, Adult carla - Nausea and Vomiting, Adult carla - Nausea, Adult carla - Nausea and Vomiting, Adult, [id number] carla - Abdominal Pain, Adult, [id number] carla Forms: - Medication Reconciliation Form [facility] - Thank You Letter [facility] - Antibiotic Education [facility] - Prescription Opioid Use [facility] Prescriptions: - Flagyl 500 mg Oral Tablet - take 1 tablet by ORAL route every 8 hours for 7 days; 21 tablet; Refills: 0, [facility] Product Selection Permitted - Zofran 4 mg Oral Tablet - take 1 tablet by ORAL route every 12 hours As needed; 14 tablet; Refills: 0, [facility] Product Selection Permitted - Cipro 500 mg Oral Tablet - take 1 tablet by ORAL route every 12 hours for 7 days; 14 tablet; Refills: 0, [facility] Product Selection Permitted Signatures: Dispatcher [employer] Radames Douglas MD MD cha Smirch, Shelby RN RN ss Gary Pyle RN RN ll1 Janae Fink RN kg
[2021-06-18] MEDS ORDERED: NA CHLORIDE 0.9% 500 ML ONE (11:48)
[2021-06-18 12:26] VITALS: TEMP 98.6
[2021-06-18 12:32] VITALS: BP 109/67; O2SAT 100
== END 2021-06-18 12:08 | disposition home or self-care (01) ==
LOC: ER 08:24
DX: R11.0 Nausea (principal); Z98.890 Other specified postprocedural states; I10 Essential (primary) hypertension; Z88.1 Allergy status to other antibiotic agents; Z88.5 Allergy status to narcotic agent
CPT/HCPCS: 96365; 96367; 96361; 93005; 85025; 80048; 36415; 83735; 85610; 82565; 80076; 84484; 83690; 83880; 71275; 74177; 71045; 96375; 99284; Q9967; J2550 ×2; J3010; J7040; J7030; J2405; J0744

== ENCOUNTER 2021-07-10 03:00 | Emergency (ER) | payer OTHER ==
--- OUTSIDE RECORDS SUMMARY | 2021-07-10 03:03 | XMS REPORT | Continuity of Care Document ---
:1960 Author Organization [facility] t Address [address] [place] [address] Care Team Providers Name Role Phone RENU Attending Clinician Unavailable TRINA Attending Clinician Unavailable MD Erki MENA Attending Clinician Unavailable ZAIRA Attending Clinician [...] Start Date Stop Date Source Never smoker [facility] Physicians Medications Ordered Filled Start Stop Current [...] Source BP Systolic 2019-11-01 144 mm[Hg] Location: [facility] :32:00 Position: [place] Physician s Sitting BP Diastolic 2019-11-01 86 mm[Hg] Location: [facility] :32:00 Position: [place] Physician s Sitting Height 2019-11-01 75 [in_us] [facility] :32:00 [place] Physician s Weight 2019-11-01 194.25 [lb_av] :32:00 [place] Physician s Body Mass Index 2019-11-01 24.28 kg/m2 [facility] Calculated 14:32:00 [place] Physician s Temperature 2019-11-01 99.2 [degF] Method: Oral :32:00 [place] Physician s Heart Rate 2019-11-01 103 /min :32:00 [place] Physician s Respiration Rate 2019-11-01 20 /min [facility] :32:00 [place] Physician s O2 SAT 2019-11-01 98 % Source: [facility] 14:32:00 [place] Physician s BP Systolic 2019-10-18 154 mm[Hg] Location: [facility] :58:00 Position: [place] Physician s Sitting BP Diastolic 2019-10-18 93 mm[Hg] Location: [facility] 10:58:00 Position: [place] Physician s Sitting Height 2019-10-18 75 [in_us] [facility] 10:58:00 [place] Physician s Weight 2019-10-18 187.125 [lb_av] [facility] 10:58:00 [place] Physician s Body Mass Index 2019-10-18 23.39 kg/m2 [facility] Calculated 10:58:00 [place] Physician s Temperature 2019-10-18 98.7 [degF] Method: Oral [facility] 10:58:00 [place] Physician s Heart Rate 2019-10-18 107 /min Location: R [facility] 10:58:00 Radial; [place] Physician s Respiration Rate 2019-10-18 22 /min [facility] 10:58:00 [place] Physician s O2 SAT 2019-10-18 98 % Source: RA [facility] 10:58:00 [place] Physician s Procedures Procedure Date / Time Performing Clinician Source Performed History of Exploratory [facility] Laparotomy Physicians History of Appendectomy [facility] Physicians [facility] History of Hysterectomy [facility] Physicians History of Knee [facility] Replacement Physicians [facility] History of Simple Bunion [facility] [place] Exostectomy ([facility] Procedure) Encounters Start End Encounter Admission Attending Care Care Encounter Source Date/Time Date/Time Type Type Clinicians Facility Department ID 2021-07-01 2021-07-01 Outpatient RENU, [facility] [id number] [place] 00:00:00 00:00:00 YANELY 873 [facility] i 2021-03-11 2021-03-11 Outpatient [facility] [place] [facility] [id number] [place] 00:00:00 00:00:00 CHU 763 Method i 2021-02-26 2021-02-26 Outpatient [facility], [facility] [id number] [place] 00:00:00 00:00:00 CHU 635 Method i 2021-02-24 2021-02-24 [facility] [id number] [place] 00:00:00 00:00:00 CHU 779 Method i 2021-01-08 2021-01-08 Outpatient [facility] [place], [facility] [id number] [place] 00:00:00 00:00:00 CHU 704 Method i 2020-11-28 2020-11-28 Outpatient [facility] [place], [facility] [id number] [place] 00:00:00 00:00:00 CHU 101 Method i 2020-11-20 2020-11-20 Outpatient PETAK, [facility] [id number] [place] 00:00:00 00:00:00 JACQUI 050 Method i 2020-11-11 2020-11-11 Outpatient THESYDNII, [facility] [id number] [place] 00:00:00 00:00:00 CHU 428 Method i 2020-10-30 2020-10-30 Outpatient THESYDNII, [facility] [id number] [place] 00:00:00 00:00:00 CHU 447 Method i 2020-10-30 2020-10-30 Outpatient STEPHEN, [facility] [id number] [place] 00:00:00 00:00:00 KATEY 260 Method i 2020-10-30 2020-10-30 Outpatient STEPHEN, [facility] [id number] [place] 00:00:00 00:00:00 KATEY 261 Method i 2020-10-23 2020-10-23 Telephone Pcp, [facility] [id number] 00:00:00 00:00:00 Patient Health [id number] Does Not [place] [id number] Have A Professio [id number] nal [address] 2020-10-05 2020-10-05 Laboratory Lab, [facility] [id number] 15:32:07 15:52:07 Only Fam Pob I Health [id number] [place] [id number] Professio [id number] nal 044 [address] 2020-10-05 2020-10-05 Letter Doctor TALIB [id number] 00:00:00 00:00:00 (Out) Unassigned, LÓPEZ [id number] [place] [facility] [id number] 2020-10-03 2020-10-03 Outpatient STEPHEN, [facility] [id number] [place] 00:00:00 00:00:00 KATEY 640 Method i 2020-09-26 2020-09-26 Outpatient [facility] [id number] [place] 00:00:00 00:00:[address] 2020-09-23 2020-09-23 Outpatient DUNLAP, [facility] [id number] [place] 00:00:00 00:00:00 BROWN [address] 2020-09-23 2020-09-23 Outpatient DUNLAP, [facility] [id number] [place] 00:00:00 00:00:00 BROWN [address] 2020-09-23 2020-09-23 Outpatient DUNLAP, [facility] [id number] [place] 00:00:00 00:00:00 BROWN [address] 2020-09-23 2020-09-23 Outpatient DUNLAP, [facility] [id number] [place] 00:00:00 00:00:00 BROWN [address] 2020-09-23 2020-09-23 Outpatient DUNLAP, [facility] [id number] [place] 00:00:00 00:00:00 BROWN [address] 2020-09-23 2020-09-23 Outpatient DUNLAP, [facility] [id number] [place] 00:00:00 00:00:00 BROWN [address] 2020-07-23 2020-07-23 Outpatient THEKDI, [facility] [id number] [place] 00:00:00 00:00:00 CHU 397 Method i 2020-07-01 2020-07-01 Outpatient ERGUN, [facility] [id number] [place] 00:00:00 00:00:00 GULCHIN 383 Method i 2020-05-01 2020-05-01 Outpatient LORI, [facility] [id number] [place] 00:00:00 00:00:00 NEHEMIAS 750 Method i 2020-05-01 2020-05-01 Outpatient LORI, [facility] [id number] [place] 00:00:00 00:00:00 NEHEMIAS 746 Method i 2020-03-19 2020-03-19 Outpatient ERGUN, [facility] [id number] [place] 00:00:00 00:00:00 GULCHIN 523 Method i 2020-02-14 2020-02-14 Outpatient ERGUN, [facility] [id number] [place] 00:00:00 00:00:00 GULCHIN 193 Method i 2020-01-31 2020-01-31 Outpatient ERGUN, [facility] [id number] [place] 00:00:00 00:00:00 GULCHIN 187 Method i 2020-01-02 2020-01-02 Outpatient ERGUN, [facility] [id number] [place] 00:00:00 00:00:00 GULCHIN 723 Method i 2020-01-02 2020-01-02 Outpatient ERGUN, [facility] [id number] [place] 00:00:00 00:00:00 GULCHIN 357 Method i 2020-01-02 2020-01-02 Outpatient ERGUN, [facility] [id number] [place] 00:00:00 00:00:00 GULCHIN 186 Method i 2020-01-02 2020-01-02 Outpatient ERGUN, [facility] [id number] [place] 00:00:00 00:00:00 GULCHIN 131 Method i 2020-01-01 2020-01-01 Outpatient ERGUN, [facility] [id number] [place] 00:00:00 00:00:00 GULCHIN 825 Method i 2020-01-01 2020-01-01 Outpatient ERGUN, [facility] [id number] [place] 00:00:00 00:00:00 GULCHIN 826 Method i 2019-11-01 2019-11-01 Appointmen [facility] [id number] [facility] 13:30:00 13:30:00 t; CAREY SPICER Surgery - Ashish Alba M.D. Physicyarely ans 2019-10-18 2019-10-18 Appointmen [facility] [id number] [facility] 11:00:00 11:00:00 t; CAREY SPICER Surgery - Ashish Alba M.D. Physicyarely ans 2019-10-18 2019-10-18 Outpatient MHSE [id number] [facility] 09:08:00 09:08:00 [facility] Results Test Description Test Time Test Comments Results Result Comments Source SARS-CoV-2 (COVID-19) RNA [Presence] in Respiratory sp ecimen by 2021-02-19 14:44:09 ADELAIDA with probe detection Test Item Value Reference Range Interpretation Comme nts SARS-CoV-2 (COVID-19) RNA [Presence] in Respiratory Not detected No t-Detected specimen by ADELAIDA with probe detection (test code = 16160-2)
--- NOTE | 2021-07-10 06:20 | ER ---
Nurse's Notes [facility] Name: Adelita Lemons Age: 60 yrs Sex: Female : 1960 Arrival Date: 07/10/2021 Time: 03:05 Bed 2 Private MD: Diagnosis: Acute pharyngitis, unspecified Presentation: 07/10 03:41 Chief complaint: Patient states: Pt states she started having a sore throat that wg started yesterday. Pt reports having difficulty swallowing as well. Pt denies SOB, N/V, dizziness, headache, CP, or any other symptoms other than slight "raspy voice". Pt denies any neurological changes including visual or gait issues. Coronavirus screen: Client denies travel out of the [place] in the last 14 days. At this time, the client does not indicate any symptoms associated with coronavirus-19. Client reports previous positive COVID test result. Date of collection: September 2020. Ebola Screen: Patient negative for fever greater than or equal to 101.5 degrees Fahrenheit, and additional compatible Ebola Virus Disease symptoms Patient denies exposure to infectious person. Patient denies travel to an Ebola-affected area in the 21 days before illness onset. No symptoms or risks identified at this time. Initial Sepsis Screen: Does the patient meet any 2 criteria? No. Patient's initial sepsis screen is negative. Does the patient have a suspected source of infection? No. Patient's initial sepsis screen is negative. Risk Assessment: Do you want to hurt yourself or someone else? Patient reports no desire to harm self or others. Onset of symptoms was July 09, 2021. Care prior to arrival: None. Activity prior to arrival: None. Mechanism of Injury: No Mechanism of Injury. 03:41 Method Of Arrival: Ambulatory wg 03:41 Acuity: CRISTAL 3 wg Triage Assessment: 03:46 General: Appears in no apparent distress. well groomed. Pain: Pain currently is 9 out wg of 10 on a pain scale. EENT: Reports difficulty swallowing since yesterday pain when swallowing Pain is 9 out of 10 on a pain scale. Neuro: No deficits noted. Cardiovascular: No deficits noted. Respiratory: No deficits noted. GI: No deficits noted. : No deficits noted. Derm: No deficits noted. Musculoskeletal: No deficits noted. Historical: - Allergies: 03:46 morphine-vomiting; wg 03:46 Amoxicillin; wg 03:46 Bactrim; wg - PMHx: 03:46 GERD; Hypertension; wg - PSHx: 03:46 Appendectomy; Cholecystectomy; Fibrous mass removed from abd; hysterectomy; L knee wg replacement; R hip replacement; - Immunization history:: Adult Immunizations Client reports receiving the 2nd dose of the Covid vaccine, Date received: January 2020. - Social history:: Smoking status: Patient uses Patient/guardian denies using alcohol, street drugs, IV drugs, tobacco products, The patient lives with spouse. - Family history:: not pertinent. - Code Status:: Full code. - Coronavirus screen:: The patient has NOT traveled to [place] in the past 14 days. The patient has NOT had contact with known/suspected case of Coronavirus?. - Ebola Screening: : Patient negative for fever greater than or equal to 101.5 degrees Fahrenheit, and additional compatible Ebola Virus Disease symptoms Patient denies exposure to infectious person Patient denies travel to an Ebola-affected area in the 21 days before illness onset No symptoms or risks identified at this time. Screenin:44 Abuse screen: Denies threats or abuse. Denies injuries from another. Nutritional ms4 screening: No deficits noted. Tuberculosis screening: No symptoms or risk factors identified. Fall Risk None identified. Assessment: 05:43 General: Appears in no apparent distress. Behavior is calm, cooperative. Pain: ms4 Complains of pain in throat. Neuro: No deficits noted. Cardiovascular: No deficits noted. Respiratory: No deficits noted. GI: No deficits noted. : No deficits noted. Vital Signs: 03:41 BP 157 / 92; Pulse 91; Resp 18; Temp 98.8; Pulse Ox 100% on R/A; Weight 94.8 kg; Height wg 6 ft. 1 in. (185.42 cm); Pain 9/10; 05:44 BP 164 / 100; Pulse 84; Resp 18; Temp 98.1; Pulse Ox 100% ; ms4 03:41 Body Mass Index 27.57 (94.80 kg, 185.42 cm) ED Course: 03:05 Patient arrived in ED. bp1 03:46 Triage completed. wg 03:46 Arm band placed on right wrist. wg 05:44 No provider procedures requiring assistance completed. ms4 06:06 Mike Hebert PA is PHCP. jmm 06:06 Ernesto Smith MD is Attending Physician. mari Administered Medications: No medications were administered Outcome: :19 Discharge ordered by . mari 07:07 Patient left the ED. ms4 Signatures: Mike Hebert PA PA jmm Paniauga, Brittany bp1 Stroud, Mikaela, RN RN ms4 Jeramy Bah
--- NOTE | 2021-07-10 06:20 | EDPHYS ---
Physician Documentation [facility] Name: Adelita Lemons Age: 60 yrs Sex: Female : 1960 Arrival Date: 07/10/2021 Time: 03:05 Bed 2 Private MD: ED Physician Ernesto Smith HPI: 07/10 06:16 This 60 yrs old Female presents to ER via Ambulatory with complaints of jmm Difficulty Swallowing. 06:16 The patient presents with sore throat. Onset: The symptoms/episode began/occurred jmm gradually, 1 day(s) ago. Modifying factors: The symptoms are alleviated by nothing, the symptoms are aggravated by nothing. Associated signs and symptoms: Pertinent positives: cough, Pertinent negatives fever. This is a 60-year-old female with history of GERD, hypertension the presents emerged department with complaints of sore throat along with a slight cough beginning approximately 1 day ago. Patient states she was previously diagnosed with strep with similar symptoms. Denies shortness of breath, vomiting. Patient is immunized for coronavirus.. Historical: - Allergies: 03:46 morphine-vomiting; wg 03:46 Amoxicillin; wg 03:46 Bactrim; wg - PMHx: 03:46 GERD; Hypertension; wg - PSHx: 03:46 Appendectomy; Cholecystectomy; Fibrous mass removed from abd; hysterectomy; L knee wg replacement; R hip replacement; - Immunization history:: Adult Immunizations Client reports receiving the 2nd dose of the Covid vaccine, Date received: January 2020. - Social history:: Smoking status: Patient uses Patient/guardian denies using alcohol, street drugs, IV drugs, tobacco products, The patient lives with spouse. - Family history:: not pertinent. - Code Status:: Full code. - Coronavirus screen:: The patient has NOT traveled to [place] in the past 14 days. The patient has NOT had contact with known/suspected case of Coronavirus?. - Ebola Screening: : Patient negative for fever greater than or equal to 101.5 degrees Fahrenheit, and additional compatible Ebola Virus Disease symptoms Patient denies exposure to infectious person Patient denies travel to an Ebola-affected area in the 21 days before illness onset No symptoms or risks identified at this time. ROS: 06:16 Constitutional: Negative for fever, chills, and weight loss, Cardiovascular: Negative jmm for chest pain, palpitations, and edema, Respiratory: Negative for shortness of breath, cough, wheezing, and pleuritic chest pain. 06:16 ENT: Positive for sore throat. 06:16 All other systems are negative. Exam: 06:16 Constitutional: This is a well developed, well nourished patient who is awake, alert, jmm and in no acute distress. Head/Face: atraumatic. Eyes: EOMI, no conjunctival erythema appreciated 06:16 Neck: Trachea midline, Supple Chest/axilla: Normal chest wall appearance and motion. Cardiovascular: Regular rate and rhythm. No edema appreciated Respiratory: Normal respirations, no respiratory distress appreciated Abdomen/GI: Non distended, soft Back: Normal ROM Skin: General appearance color normal MS/ Extremity: Moves all extremities, no obvious deformities appreciated, no edema noted to the lower extremities Neuro: Awake and alert, normal gait Psych: Behavior is normal, Mood is normal, Patient is cooperative and pleasant 06:16 ENT: Posterior pharynx: erythema, that is mild, Slight erythema noted to the posterior pharynx, no edema appreciated, no peritonsillar masses appreciated, uvula is midline. Vital Signs: 03:41 BP 157 / 92; Pulse 91; Resp 18; Temp 98.8; Pulse Ox 100% on R/A; Weight 94.8 kg; Height wg 6 ft. 1 in. (185.42 cm); Pain 9/10; 05:44 BP 164 / 100; Pulse 84; Resp 18; Temp 98.1; Pulse Ox 100% ; ms4 03:41 Body Mass Index 27.57 (94.80 kg, 185.42 cm) wg MDM: 06:16 Patient medically screened. [facility] 06:17 Data reviewed: vital signs, nurses notes. Counseling: I had a detailed discussion with shawn the patient and/or guardian regarding: the historical points, exam findings, and any diagnostic results supporting the discharge/admit diagnosis, the need for outpatient follow up, to return to the emergency department if symptoms worsen or persist or if there are any questions or concerns that arise at home. ED course: Patient is alert and nontoxic in appearance. Patient has had similar symptoms in the past and previously diagnosed with strep. Will cover the patient with antibiotics and diagnosed with acute pharyngitis. Strep cultures will be sent. Patient is otherwise given strict return precautions. Patient understood and agrees to plan of care.. 07/10 05:42 Order name: Strep; Complete Time: 06:27 bb 07/10 06:25 Order name: Throat Culture EDMS Administered Medications: No medications were administered Disposition Summary: 07/10/21 06:19 Discharge Ordered Location: Home [facility] Condition: Stable [facility] Diagnosis - Acute pharyngitis, unspecified jmm Followup: [facility] - With: Private Physician - When: 2 - 3 days - Reason: Recheck today's complaints, Continuance of care, Re-evaluation by your physician Discharge Instructions: - Discharge Summary Sheet [facility] - Pharyngitis [facility] Forms: - Medication Reconciliation Form [facility] - Thank You Letter [facility] - Antibiotic Education [facility] - Prescription Opioid Use [facility] Prescriptions: - Zithromax Z-Nehemiah 250 mg Oral Tablet - take 1 tablet by ORAL route as directed for 5 days Day 1 - take two (2) tablets [facility] one time. Day 2, 3, 4 , 5 take one (1) tablet once daily.; 6 tablet; Refills: 0, Product Selection Permitted Addendum: 07/11/2021 12:59 Co-signature as Attending Physician, Ernesto lujan Signatures: Dispatcher [employer] Ernesto Pineda MD MD pkMike Duron PA PA Jeramy Boyer
[2021-07-10 07:13] VITALS: O2SAT 100
[2021-07-10 07:14] VITALS: BP 164/100; TEMP 98.1
== END 2021-07-10 07:07 | disposition home or self-care (01) ==
LOC: ER 03:00
DX: J02.9 Acute pharyngitis, unspecified (principal); I10 Essential (primary) hypertension; Z88.1 Allergy status to other antibiotic agents; Z88.5 Allergy status to narcotic agent
CPT/HCPCS: 87070; 87081; 99281

== ENCOUNTER 2021-08-18 18:29 | Emergency (ER) | payer OTHER ==
[2021-08-18 19:00] LABS: Urine Blood Negative (Negative); Urine Glucose Negative (Negative); Urine Protein Negative (Negative); Urine Specific Gravity 1.025 (1.005-1.030)
[2021-08-18] MEDS ORDERED: PROMETHAZINE INJ 25 MG/ML AMP ONE ×2 (19:24→20:07)
[2021-08-18] MEDS ORDERED: HYDROMORPHONE HCL 1 MG/ML INJ ONE (19:25)
[2021-08-18 19:53] LABS: Absolute Lymphocytes (CBC) 1.3 K/uL (0.7-4.9); Basophils % 0.4 % (0-1.3); Hematocrit 36.7 % (36.0-45.0); Lymphocytes % 7.8 % (15.3-44.8); MPV 7.9 fL (7.6-11.3); RBC Red Blood Cell Count 4.25 M/uL (3.86-4.86)
[2021-08-18 20:02] LABS: Albumin 4.5 g/dL (3.4-5.0); Bilirubin Direct 0.1 mg/dL (0-0.2); Bilirubin Total 0.4 mg/dL (0.2-1.0); Potassium 4.5 mmol/L (3.5-5.1); Protein, Total 8.3 g/dL (6.4-8.2)
[2021-08-18] MEDS ORDERED: HYDROMORPHONE HCL 2 MG/ML inj ONE ×2 (20:07→21:32)
--- NOTE | 2021-08-18 20:54 | RAD REPORT ---
EXAM DESCRIPTION: CTAbdomen Pelvis W Contrast - 08/18/2021 8:32 pm CLINICAL HISTORY: . ABD PAIN COMPARISON: Abdomen Pelvis W Contrast dated 06/18/2021; CT ABD PELVIS W CONTRAST dated 10/11/2013; C T ABD PELVIS W CONTRAST dated 04/27/2013; CT ABD PELVIS W CONTRAST dated 08/22/2012 TECHNIQUE: Biphasic CT imaging of the abdomen and pelvis was performed with 100 ml non-ionic IV cont rast. All CT scans are performed using dose optimization technique as appropriate and may include automated exposure control or mA/KV adjustment according to patient size. FINDINGS: Lower chest: No acute abnormality. Liver: No acute abnormality or suspicious lesions. Biliary: No biliary ductal dilatation. Cholecystectomy. Stomach: No significant focal abnormality. Duodenum: No significant focal abnormality. Pancreas: No significant abnormality. Spleen: No significant abnormality. Adrenal: No suspicious lesions. Kidney/ureter: No hydronephrosis. No renal calculi. Retroperitoneum: No retroperitoneal adenopathy. Vascular: No aneurysm. Bowel: Small bowel obstruction centrally. There sharply angulated small bowel with fecalized loops. T he small bowel measures up to 3.5 cm.. Soft tissue in the small bowel mesentery measuring approximate ly 2.2 cm is unchanged. Peritoneum: Small volume of ascites. Bladder: Grossly unremarkable. Reproductive: No adnexal masses. Bones: No acute fracture. Right hip arthroplasty. Multilevel degenerative changes are present in the spine. Other: n/a IMPRESSION: Small bowel obstruction with transition point centrally within the abdomen and which is likely secondary to adhesions. The small bowel mesenteric soft tissue mass is unchanged since 2012.
[2021-08-18] MEDS ORDERED: NA CHLORIDE 0.9% 1,000 ML ONE ×2 (21:21→22:30)
--- NOTE | 2021-08-18 21:43 | ER ---
Nurse's Notes [facility] Name: Adelita Lemons Age: 61 yrs Sex: Female : 1960 Arrival Date: 08/18/2021 Time: 18:30 Bed 15 Private MD: Diagnosis: Other and unspecified intestinal obstruction Presentation: 08/18 18:44 Chief complaint: Severe lower abdominal pain and nausea sine this morning. Coronavirus hb screen: At this time, the client does not indicate any symptoms associated with coronavirus-19. Ebola Screen: No symptoms or risks identified at this time. Initial Sepsis Screen: Does the patient meet any 2 criteria? No. Patient's initial sepsis screen is negative. Does the patient have a suspected source of infection? No. Patient's initial sepsis screen is negative. Risk Assessment: Do you want to hurt yourself or someone else? Patient reports no desire to harm self or others. Onset of symptoms was August 18, 2021. 18:44 Method Of Arrival: Ambulatory hb 18:44 Acuity: CRISTAL 3 hb Historical: - Allergies: 18:45 Amoxicillin; hb 18:45 Bactrim; hb 18:45 morphine-vomiting; hb - PMHx: 18:45 GERD; Hypertension; hb - PSHx: 18:45 Appendectomy; Cholecystectomy; Fibrous mass removed from abd; hysterectomy; L knee hb replacement; R hip replacement; - Immunization history:: Client reports receiving the 2nd dose of the Covid vaccine, Flu vaccine is up to date. - Social history:: Smoking status: Patient denies any tobacco usage or history of. Screenin:53 Abuse screen: Denies threats or abuse. Nutritional screening: No deficits noted. kh1 Tuberculosis screening: No symptoms or risk factors identified. Fall Risk None identified. No fall in past 12 months (0 pts). No secondary diagnosis (0 pts). IV access (20 points). Ambulatory Aid- Crutches/Cane/Walker (15 pts). Gait- Normal/Bed Rest/Wheelchair (0 pts) Mental Status- Oriented to own ability (0 pts). Assessment: 18:51 General: Appears in no apparent distress. uncomfortable, Behavior is calm, cooperative, kh1 appropriate for age. Pain: Complains of pain in abdomen Pain radiates to back Pain currently is 8 out of 10 on a pain scale. Quality of pain is described as sharp, Pain began 1 day ago. Neuro: Level of Consciousness is awake, alert, obeys commands, Oriented to person, place, time, situation, Appropriate for age Reports. GI: Bowel sounds present X 4 quads. Abd is soft Abdomen is tender to palpation X 4 quads. 20:00 Reassessment: No changes from previously documented assessment. Patient and/or family bs2 updated on plan of care and expected duration. Pain level reassessed. Patient is alert, oriented x 3, equal unlabored respirations, skin warm/dry/pink. Patient states symptoms have not improved. 21:00 Reassessment: No changes from previously documented assessment. Patient and/or family bs2 updated on plan of care and expected duration. Pain level reassessed. Patient is alert, oriented x 3, equal unlabored respirations, skin warm/dry/pink. Patient states symptoms have not improved. Spoke to pt about NG tube placement and admit to hospital, PT request transfer to [facility]. . Vital Signs: 18:44 BP 198 / 102; Pulse 90; Resp 16; Temp 99.8(O); Pulse Ox 98% on R/A; Weight 95.25 kg; hb Height 6 ft. 1 in. (185.42 cm); Pain 10/10; 19:00 BP 178 / 107; Pulse 91; Resp 20; Pulse Ox 96% ; Pain 10/10; em 20:00 BP 133 / 82; Pulse 87; Resp 18; Temp 98.6(O); Pain 8/10; em 21:00 BP 131 / 88; Pulse 75; Resp 18; Pulse Ox 95% ; Pain 8/10; em 22:00 BP 136 / 86; Pulse 77; Resp 19; Pulse Ox 93% ; Pain 8/10; em 23:00 BP 150 / 92; Pulse 72; Resp 18; Temp 98.6(O); Pulse Ox 94% ; Pain 10/10; em 23:58 BP 144 / 91 LA Sitting (auto/reg); Pulse 81 MON; Resp 16 S; Temp 97.6(O); Pulse Ox 96% em on R/A; Pain 10/10; 18:44 Body Mass Index 27.71 (95.25 kg, 185.42 cm) ED Course: 18:30 Patient arrived in ED. ds1 18:45 Triage completed. hb 18:45 Arm band placed on. hb 18:46 Thiago Correa, ROBOTICS ENGINEER is PHCP. pm1 18:46 Neil Angelo MD is Attending Physician. pm1 18:53 No provider procedures requiring assistance completed. kh1 18:54 Latasha Garcia is Primary Nurse. kh1 18:58 Patient has correct armband on for positive identification. Placed in gown. Bed in low bs2 position. Call light in reach. Side rails up X 1. 18:58 Pulse ox on. NIBP on. Door closed. Noise minimized. Lights dimmed. Warm blanket given. bs2 Verbal reassurance given. 19:00 Inserted saline lock: 20 gauge in left antecubital area, using aseptic technique. Blood bs2 collected. 19:00 Inserted saline lock: 20 gauge in right forearm, using aseptic technique. bs2 19:58 Primary Nurse role handed off by Latasha Garcia tt3 20:32 CT Abd/Pelvis - IV Contrast Only In Process Unspecified. EDMS 21:14 Initiated transfer at [facility] with Paula Melgoza. Stated she would call back with tt3 their physican. 21:50 Liseth Galaviz, DISHA is Primary Nurse. 3 22:02 Paula called back with their physician to speak with BRAULIO Marino, pt tt3 provider regarding the transfer request. 22:14 Paula Melgoza gave admin approval. The pt is going to [facility] tt3 Room 807. The accepting physician is Dr. Fajardo. Nurse to call report to . Face sheet and MOT to be faxed to per Paula's request. 22:15 NGT: inserted 18 Fr. via right nare. verified placement of air over stomach, verified bs2 return of gastric contents, Placement verified by X-ray, to intermittent suction. Returned gastric contents. Returned bile. Amount of gastric contents removed by suction 200ml. Patient tolerated well. 22:25 Abdomen Single View In Process Unspecified. EDMS 23:58 Patient transferred, IV remains in place. em Administered Medications: 19:06 Drug: Dilaudid (HYDROmorphone) 1 mg Route: IVP; Site: left antecubital; 1 19:57 Follow up: Response: No adverse reaction bs2 19:06 Drug: Phenergan (promethazine) 12.5 mg Route: IVP; Site: left antecubital; kh1 19:58 Follow up: Response: No adverse reaction bs2 19:50 Drug: Dilaudid (HYDROmorphone) 0.5 mg Route: IVP; Site: left antecubital; bs2 20:47 Follow up: Response: No adverse reaction bs2 19:50 Drug: Phenergan (promethazine) 12.5 mg Route: IVP; Site: left antecubital; bs2 20:47 Follow up: Response: No adverse reaction bs2 21:14 Drug: NS 0.9% 1000 ml Route: IV; Rate: 1000 ml; Site: left antecubital; bs2 23:44 Follow up: IV Status: Completed infusion bs2 21:14 Drug: Dilaudid (HYDROmorphone) 0.5 mg Route: IVP; Site: left antecubital; bs2 23:43 Follow up: Response: No adverse reaction bs2 22:00 Drug: Flagyl (metroNIDAZOLE) 500 mg Volume: 100 ml; Route: IVPB; Rate: 200 ml/hr; bs2 Infused Over: 30 mins; Site: left antecubital; 23:47 Follow up: IV Status: Completed infusion; IV Intake: 100ml bs2 22:00 Drug: NS 0.9% 1000 ml Route: IV; Rate: 100 ml/hr; Site: right forearm; bs2 08/19 00:36 Follow up: IV Status: Infusion continued upon transfer bs2 08/18 22:35 Drug: fentaNYL (PF) 50 mcg Route: IVP; Site: left antecubital; bs2 23:43 Follow up: Response: No adverse reaction bs2 23:47 Drug: LevaQUIN (levofloxacin) 500 mg Volume: 100 ml; Route: IVPB; Infused Over: 60 bs2 mins; Site: right forearm; 08/19 00:36 Follow up: IV Status: Completed infusion; IV Intake: 100ml bs2 00:13 Drug: fentaNYL (PF) 50 mcg Route: IVP; Site: left antecubital; bs2 00:36 Follow up: Response: No adverse reaction bs2 00:29 Drug: Phenergan (promethazine) 12.5 mg Route: IVP; Site: left antecubital; bs2 00:37 Follow up: Response: No adverse reaction bs2 Intake: 08/18 23:47 IV: 100ml; Total: 100ml. bs2 08/19 00:36 IV: 100ml; Total: 200ml. bs2 Outcome: 08/18 21:43 ER care complete, transfer ordered by . pm1 08/19 00:43 Transferred by ground EMS to [facility], Transfer form completed. X-rays bs2 sent w/ patient. Transferred Note: aRn Centeno RN Condition: stable Instructed on the need for transfer. 00:45 Patient left the ED. bs2 Signatures: Dispatcher [employer] EDSukumar Dao RN RN Tamanna Garland ds1 Thiago Correa, EDOUARD ROBOTICS ENGINEER pm1 Perri Mack RN RN Jerel Fine tt3 Mirella Ayala RN RN bs2 Liseth Galaviz RN RN 3 Latasha Garcia formerly [facility] Corrections: (The following items were deleted from the chart) 08/18 23:26 21:14 Initiated transfer at [facility] with Paula Deshpande. Stated she would call tt3 back with their physican. tt3 23:56 23:53 Paula called back with their physician to speak with BRAULIO Marino, pt tt3 provider regarding the transfer request. tt3
--- NOTE | 2021-08-18 21:44 | EDPHYS ---
Physician Documentation [facility] Name: Adelita Lemons Age: 61 yrs Sex: Female : 1960 Arrival Date: 08/18/2021 Time: 18:30 Bed 15 Private MD: ED Physician Neil Angelo HPI: 08/18 18:59 This 61 yrs old Female presents to ER via Ambulatory with complaints of pm1 Abdominal Pain. 18:59 The patient presents with abdominal pain in the lower abdomen. Onset: The pm1 symptoms/episode began/occurred this morning. The symptoms do not radiate. Associated signs and symptoms: Pertinent positives: nausea, multiple normal bowel movements today and passing gas, Pertinent negatives: chest pain, diarrhea, fever, shortness of breath. The symptoms are described as sharp. Modifying factors: The symptoms are alleviated by nothing, the symptoms are aggravated by nothing. Severity of pain: in the emergency department the pain is actually worse. The patient has experienced similar episodes in the past, Small bowel obstruction related to adhesions. The patient has not recently seen a physician. Historical: - Allergies: 18:45 Amoxicillin; hb 18:45 Bactrim; hb 18:45 morphine-vomiting; hb - PMHx: 18:45 GERD; Hypertension; hb - PSHx: 18:45 Appendectomy; Cholecystectomy; Fibrous mass removed from abd; hysterectomy; L knee hb replacement; R hip replacement; - Immunization history:: Client reports receiving the 2nd dose of the Covid vaccine, Flu vaccine is up to date. - Social history:: Smoking status: Patient denies any tobacco usage or history of. ROS: 18:59 Constitutional: Negative for fever, chills, and weight loss, Cardiovascular: Negative pm1 for chest pain, palpitations, and edema, Respiratory: Negative for shortness of breath, cough, wheezing, and pleuritic chest pain. 18:59 MS/Extremity: Negative for injury and deformity, Skin: Negative for injury, rash, and discoloration, Neuro: Negative for headache, weakness, numbness, tingling, and seizure. 18:59 Abdomen/GI: Positive for abdominal pain, nausea, Negative for vomiting, diarrhea, constipation. 18:59 All other systems are negative. Exam: 18:59 Constitutional: This is a well developed, well nourished patient who is awake, alert, pm1 and in no acute distress. Head/Face: Normocephalic, atraumatic. 18:59 Back: No spinal tenderness. No costovertebral tenderness. Full range of motion. Skin: Warm, dry with normal turgor. Normal color with no rashes, no lesions, and no evidence of cellulitis. MS/ Extremity: Pulses equal, no cyanosis. Neurovascular intact. Full, normal range of motion. 18:59 Eyes: Exam is negative for acute changes, Extraocular movements: intact throughout, Conjunctiva: no acute changes, no injection, Sclera: no acute changes, icterus, is not appreciated. 18:59 ENT: Mouth: no acute changes, Lips: normal, moist, Oral mucosa: normal, pink and intact, moist. 18:59 Cardiovascular: Rate: normal, Rhythm: regular, Pulses: no pulse deficits are appreciated, Heart sounds: normal, normal S1and S2. 18:59 Respiratory: Exam negative for acute changes, respiratory distress, shortness of breath, Breath sounds: are clear throughout. 18:59 Abdomen/GI: Inspection: obese Palpation: soft, in all quadrants, mild abdominal tenderness, in the left lower quadrant, moderate abdominal tenderness, in the umbilical area and right lower quadrant. 18:59 Neuro: Exam negative for acute changes, Orientation: is normal, Mentation: is normal, Motor: is normal, moves all fours. Vital Signs: 18:44 BP 198 / 102; Pulse 90; Resp 16; Temp 99.8(O); Pulse Ox 98% on R/A; Weight 95.25 kg; hb Height 6 ft. 1 in. (185.42 cm); Pain 10/10; 19:00 BP 178 / 107; Pulse 91; Resp 20; Pulse Ox 96% ; Pain 10/10; em 20:00 BP 133 / 82; Pulse 87; Resp 18; Temp 98.6(O); Pain 8/10; em 21:00 BP 131 / 88; Pulse 75; Resp 18; Pulse Ox 95% ; Pain 8/10; em 22:00 BP 136 / 86; Pulse 77; Resp 19; Pulse Ox 93% ; Pain 8/10; em 23:00 BP 150 / 92; Pulse 72; Resp 18; Temp 98.6(O); Pulse Ox 94% ; Pain 10/10; em 23:58 BP 144 / 91 LA Sitting (auto/reg); Pulse 81 MON; Resp 16 S; Temp 97.6(O); Pulse Ox 96% em on R/A; Pain 10; 18:44 Body Mass Index 27.71 (95.25 kg, 185.42 cm) hb MDM: 18:51 Patient medically screened. pm1 21:10 Counseling: I had a detailed discussion with the patient and/or guardian regarding: the pm1 historical points, exam findings, and any diagnostic results supporting the discharge/admit diagnosis, lab results, radiology results, the need for further work-up and treatment in the hospital. 21:14 ED course: Patient requesting to be transferred to [facility]. pm1 21:39 Data reviewed: vital signs. Data interpreted: Pulse oximetry: on room air is 98 %. pm1 Interpretation: normal. 22:15 Physician consultation: MD Fajardo was contacted at 22:15, regarding regarding pm1 transfer, patient's condition, and will see patient. 08/18 18:52 Order name: Basic Metabolic Panel; Complete Time: 20:02 pm1 08/18 18:52 Order name: CBC with Diff; Complete Time: 20:08 pm1 08/18 18:52 Order name: Hepatic Function; Complete Time: 20:02 pm1 08/18 18:52 Order name: Lipase; Complete Time: 20:02 pm1 08/18 18:59 Order name: Urine Dipstick-Ancillary; Complete Time: 19:39 EDNJ 08/18 18:55 Order name: CT Abd/Pelvis - IV Contrast Only; Complete Time: 21:04 pm1 08/18 22:24 Order name: Abdomen Single View EDNJ 08/18 18:52 Order name: IV Saline Lock; Complete Time: 19:06 pm1 08/18 18:52 Order name: Labs collected and sent; Complete Time: 19:06 pm1 08/18 18:55 Order name: Urine Dipstick-Ancillary (obtain specimen); Complete Time: 19:06 pm1 08/18 21:05 Order name: NPO; Complete Time: 00:37 pm1 08/18 21:05 Order name: NG Tube; Complete Time: 21:50 pm1 Administered Medications: 19:06 Drug: Dilaudid (HYDROmorphone) 1 mg Route: IVP; Site: left antecubital; kh1 19:57 Follow up: Response: No adverse reaction bs2 19:06 Drug: Phenergan (promethazine) 12.5 mg Route: IVP; Site: left antecubital; kh1 19:58 Follow up: Response: No adverse reaction bs2 19:50 Drug: Dilaudid (HYDROmorphone) 0.5 mg Route: IVP; Site: left antecubital; bs2 20:47 Follow up: Response: No adverse reaction bs2 19:50 Drug: Phenergan (promethazine) 12.5 mg Route: IVP; Site: left antecubital; bs2 20:47 Follow up: Response: No adverse reaction bs2 21:14 Drug: NS 0.9% 1000 ml Route: IV; Rate: 1000 ml; Site: left antecubital; bs2 23:44 Follow up: IV Status: Completed infusion bs2 21:14 Drug: Dilaudid (HYDROmorphone) 0.5 mg Route: IVP; Site: left antecubital; bs2 23:43 Follow up: Response: No adverse reaction bs2 22:00 Drug: Flagyl (metroNIDAZOLE) 500 mg Volume: 100 ml; Route: IVPB; Rate: 200 ml/hr; bs2 Infused Over: 30 mins; Site: left antecubital; 23:47 Follow up: IV Status: Completed infusion; IV Intake: 100ml bs2 22:00 Drug: NS 0.9% 1000 ml Route: IV; Rate: 100 ml/hr; Site: right forearm; bs2 08/19 00:36 Follow up: IV Status: Infusion continued upon transfer bs2 08/18 22:35 Drug: fentaNYL (PF) 50 mcg Route: IVP; Site: left antecubital; bs2 23:43 Follow up: Response: No adverse reaction bs2 23:47 Drug: LevaQUIN (levofloxacin) 500 mg Volume: 100 ml; Route: IVPB; Infused Over: 60 bs2 mins; Site: right forearm; 08/19 00:36 Follow up: IV Status: Completed infusion; IV Intake: 100ml bs2 00:13 Drug: fentaNYL (PF) 50 mcg Route: IVP; Site: left antecubital; bs2 00:36 Follow up: Response: No adverse reaction bs2 00:29 Drug: Phenergan (promethazine) 12.5 mg Route: IVP; Site: left antecubital; bs2 00:37 Follow up: Response: No adverse reaction bs2 Disposition: 07:02 Co-signature as Attending Physician, Neil Angelo MD I agree with the assessment and rn plan of care. Attestation: The patient's history, exam findings, diagnostics, and a summary of any interventions or procedures was reviewed in detail with Thiago Correa TRAVEL COORDINATOR. Disposition Summary: 08/18/21 21:43 Transfer Ordered Transfer Location: [facility] pm1 Reason: Patient request pm1 Condition: Stable pm1 Problem: new pm1 Symptoms: have improved pm1 Accepting Physician: (08/19/21 00:45) bs2 Diagnosis - Other and unspecified intestinal obstruction pm1 Forms: - Medication Reconciliation Form pm1 - SBAR form pm1 Signatures: Dispatcher [employer] EDMS Neil Angelo MD MD rn Marinas, Patrick, NP TRAVEL COORDINATOR pm1 Perri aMck RN RN Mirella Schmitt RN RN bs2 Latasha Garcia [facility] Corrections: (The following items were deleted from the chart) 08/18 21:15 20:21 Abdomen Limited+US.RAD.BRZ ordered. EDMS EDMS 22:24 21:53 Chest Single View+RAD.RAD.BRZ ordered. EDMS EDMS 08/19 00:14 08/18 21:14 CORONAVIRUS+MR.LAB.BRZ ordered. EDMS EDMS 08/19 00:45 08/18 21:43 pm1 bs2
[2021-08-18] MEDS ORDERED: METRONIDAZOLE 500mg IVPB 500 MG/100 ML BAG IV ONE (22:30)
[2021-08-18] MEDS ORDERED: Levofloxacin500mg IV 500 MG/100 ML BAG IV ONE (22:30)
[2021-08-19] MEDS ORDERED: FENTANYL CITR 100 MCG/2 ML ONE ×2 (00:29→00:57)
[2021-08-19] MEDS ORDERED: PROMETHAZINE INJ 25 MG/ML AMP ONE (00:49)
[2021-08-19 01:21] VITALS: BP 144/91; TEMP 97.6; O2SAT 96
--- NOTE | 2021-08-19 07:35 | RAD REPORT ---
EXAM DESCRIPTION: RAD - Abdomen Single View - 08/18/2021 10:25 pm CLINICAL HISTORY: NG tube placement COMPARISON: Abdomen Pelvis W Contrast dated 08/18/2021 FINDINGS: NG tube tip overlies the lower stomach. Contrast seen within the collecting systems the ki dneys. Surgical clips in the right upper quadrant. IMPRESSION: NG tube tip in satisfactory position overlying the lower stomach.
== END 2021-08-19 00:45 | disposition short-term general hospital (02) ==
LOC: ER 18:29
DX: K56.699 Other intestinal obstruction unspecified as to partial versus complete obstruction (principal); I10 Essential (primary) hypertension; Z88.1 Allergy status to other antibiotic agents; Z88.5 Allergy status to narcotic agent; Z20.822 Contact with and (suspected) exposure to COVID-19
CPT/HCPCS: 96365; 96367; 96361; 85025; 80048; 36415; 80076; 81003; 83690; 74177; 74018; 96375; 99285; 96366; U0003; Q9967; J2550 ×3; J1170 ×3; J3010 ×2; J7030 ×2

== ENCOUNTER 2022-06-18 19:30 | Emergency (ER) | payer OTHER ==
--- OUTSIDE RECORDS SUMMARY | 2022-06-18 19:37 | XMS REPORT | Clinical Summary ---
:1960 Author Organization [facility] Address [address] [place] [address] Care Team Providers Name Role Phone Madison Manning Unavailable Allergies Not on File Medications Not on file Active Problems Not on file Encounters Date Type Specialty Care Team Description 05/25/2022 Ancillary Procedure Radiology Cancer 03/30/2022 Ancillary Procedure Radiology Cancer 03/30/2022 Ancillary Procedure Radiology Cancer 03/25/2022 Lab Requisition Liban Javed MD Divatia, Mukul K, MD after 06/18/2021 Social History Tobacco Use Types Packs/Day Years Used Date Never Assessed Sex Assigned at Date Recorded Not on file Job Start Date Occupation Industry Not on file Not on file Not on file Last Filed Vital Signs Not on file Plan of Treatment Not on file Procedures Procedure Name Priority Date/Time Associated Comments Diagnosis OSI CT ABDOMEN AND Routine 12/29/2021 11:35 Cancer Resul ts for this PELVIS PM [employer] procedure are i n the results section. OSI CHEST Routine 08/22/2021 12:46 Cancer Results for this PM CDT procedure are i n the results section. PATHOLOGY OUTSIDE Routine 08/21/2021 Results fo r this INTERPRETATION procedure are in the results section. OSI ABDOMEN Routine 08/19/2021 12:47 Cancer Results for this PM CDT procedure are i n the results section. after 06/18/[address] Abdomen and Pelvis (12/29/2021 11:35 PM [employer]) Specimen (Source) Anatomical Location Collection Method / Collectio n Time Received Time / Laterality Volume Narrative Systemgenerated, Documentation - 022 11:35 PM CDT Study acquired at another institution. For comparison only. No MD Phillips originated interpretation requested or a vailable. Candida Fajardo MD IMG OUTSIDE IMAGE ORDERABLES OSI Chest (08/22/2021 12:46 PM CDT) Specimen (Source) Anatomical Location Collection Method / Collectio n Time Received Time / Laterality Volume Narrative Systemgenerated, Documentation - 022 12:47 PM CDT Study acquired at another institution. For comparison only. No MD Phillips originated interpretation requested or a vailable. Candida Fajardo MD IMG OUTSIDE IMAGE ORDERABLES Pathology Outside Interpretation (08/21/2021) Component Value Ref Test Analysis Performed Pathologis t Range Method Time At Signature Materials Accession#, Stained, Block, Unstained Collected Received 03/26/2022 [facility] Received A. [id number], 38 SS, 0 BLOCKS, 0 USS 08/21/2021 03/25/2022 6:58 PM CDT Addendum 1 Outside ([id number], 38 SS, 0 BLOCKS, 0 USS, collected on 08/21/2021): 03/26/2022 [facility] Addendum 6:58 PM electronic ally C. 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 No malignancy identified. MD Paty on 03/26/2022 at 6:58 PM Diagnosis Outside ([id number], 38 SS, 0 BLOCKS, 0 USS, collected on 08/21/2021): 03/26/2022 [facility] Electronically 6:58 PM signed by Johnna. 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 (see comment #1) on 03/26/2022 Tumor size 3.0 cm (Per outside report) at 10:02 AM One lymph node, no tumor present (0/1). Resection margins, free of tumor. Unremarkable small bowel mucosa. B. Mesentery, biopsy: Hyalinized stromal proliferation. (see comment #2) C. Liver, nodules, wedge biopsy x2: To be signed out by GI pathology (please see addendum repor t). Comment #1:Submitted immunohistochem ical stains show that the stromal component is negative for beta-catenin (nuclear expression), CK8, STAT6, desmin, smooth muscle actin, ALK1, SOX10, factor VIII a, and CD163. CD34 highlights vascular channels. 03/26/2022 [facility] 6:58 PM The overall findings are tho se of a benign process, but it is challenging to classify. The differential diagnosis includes a reactive or benign fibroblastic process and a benign vascular lesion such as CDT an arteriovenous malformation / hemangioma with reactive carla nges. #2: Submitted immunohistoche mical stain for [place] red is negative for amyloid deposition. Disclaimer "Some tests reported 03/26/2022 [facility] here may have been 6:58 PM developed and CDT performance characteristics determined by [facility]. These tests have not been specifically cleared or approved by the U.S. Food and Drug Administration. If applicable, controls were reviewed and showed appropriate reactivity." Specimen (Source) Anatomical Collection Method Collection Time Re ceived Time Location / / Volume Laterality Tissue 08/21/2021 03/25/2022 9:01 AM CDT Jed Reardon MD LAB PATHOLOGY ORDERABLES Performing Organization Address City/State/ZIP Code Phon e Number [facility] [place] [address] [id number] OSI Abdomen (08/19/2021 12:47 PM CDT) Specimen (Source) Anatomical Location Collection Method / Collectio n Time Received Time / Laterality Volume Narrative Systemgenerated, Documentation - 022 12:47 PM CDT Study acquired at another institution. For comparison only. No Alan originated interpretation requested or a vailable. Candida Fajardo MD IMG OUTSIDE IMAGE ORDERABLES after 06/18/2021 Insurance Payer Benefit Plan / Subscriber ID Effective Dates Phone Addre ss Type Group [employer] MANAGED A[employer] O [id number] 2014-Present [id number] [facility] [place] [address] Care Teams Twist Tester Relationship Specialty Start Date End Date Madison Manning PCP - External Follow Up A 03/19/22
--- OUTSIDE RECORDS SUMMARY | 2022-06-18 19:37 | XMS REPORT | Continuity of Care Document ---
:[address] [facility] t Address [address] [place] [address] Dr. Chaves [address] [place] [address] Care Team Providers Name Role Phone Carey Koo MD Primary Care Physician SYSTEM, PROVIDER NOT IN Attending Clinician Unavailable LISSY WILSON Attending Clinician Unavailable MARIAN CUTLER Attending Clinician Unavailable BROWN JIMENEZ Attending Clinician Unavailable Liban Javed MD Attending Clinician Jed Reardon MD Attending Clinician Unavailable GC_TNC_Lovitt_S Attending Clinician Unavailable YANELY SEARS Attending Clinician Unavailable Trudy Vernon RN Attending Clinician Unavailable SLY ARREDONDO III Attending Clinician Unavailable King COTY MD, James C Attending Clinician Christie Mehta Attending Clinician MD YANELY SEARS Attending Clinician Unavailable SARA JUAREZ Attending Clinician Unavailable MD CANDIDA OLIVAREZ Attending Clinician Unavailable CHU MENA Attending Clinician Unavailable MD CHU MENA Attending Clinician Unavailable JACQUI MENESES Attending Clinician Unavailable KATEY MITCHELL Attending Clinician Unavailable Pcp, Patient Does Not Have A Attending Clinician [phone] Lab, Adc Fam Pob I Attending Clinician Unavailable Doctor Unassigned, Turner Attending Clinician Unavailable BROWN DUNLAP Attending Clinician Unavailable KORY CERVANTES Attending Clinician Unavailable NEHEMIAS SANDOVAL Attending Clinician Unavailable CAREY KOO M.D. Attending Clinician Unavailable GC_TNC_Lovitt_S Admitting Clinician Unavailable YANELY SEARS Admitting Clinician Unavailable EDOUARD AVILA Admitting Clinician Unavailable CANDIDA OLIVAREZ Admitting Clinician Unavailable MD CANDIDA OLIVAREZ Admitting Clinician Unavailable CHU MENA Admitting Clinician Unavailable EDOUARD FREY Admitting Clinician Unavailable KORY CERVANTES Admitting Clinician Unavailable Payers Payer Name Policy Type Policy Number Effective Date Expiration Date S loreta AETNA CHOICE POS [id number] 2013 00:00:00 II AETNA (POS) [id number] 2013 00:00:00 Problems Condition Condition Condition Status Onset Resolution Last Treating Co mments Source Name Details Category Date Date Treatment Clinician Date Heartburn Heartburn Problem Active [facility] Gastric Gastric Problem Active [facility] regurgitat regurgitat Ph ysici ion ion ans Weight Weight Problem Active [facility] loss, loss, Physici unintentio unintentio an s nal nal Belching Belching Problem Active [facility] Esophageal Esophageal Problem Active U T dysmotilit dysmotilit Ph ysici y y ans Hiatal Hiatal Problem Active UT hernia hernia Physici ans Achalasia Achalasia Problem Active [facility] No known No known Disease Unive rs active active ity of problems problems [facility] [place] Cervical Cervical Problem Active UT dysphagia dysphagia Phys ici ans Allergies, Adverse Reactions, Alerts Allergy Allergy Status Severity Reaction(s) Onset Inactive Treating Comm ents Source Name Type Date Date Clinician Amoxicil Propensi Active Unknown - Uni vers maria eugenia ty to See comments 1- ity of adverse 00:00: [place] reaction 00 Medical s Branch Sulfamet Propensi Active Other - See 0 U nivers hoxazole ty to comments 1-13 ity of -Trimeth adverse 00:00: [place] oprim reaction 00 Medical s Branch Morphine Propensi Active Nausea Univer s ty to and/or 1- ity of adverse Vomiting 00:00: [place] reaction 00 Medical s Branch AMOXICIL DRUG Active High Unknown-Cmnt 0 Un sugey MARIA EUGENIA INGREDI 1-13 ity of 00:00: [place] 00 Medical Branch SULFAMET DRUG Active High Other-Cmnt Univ ers HOXAZOLE 1-13 ity of -TRIMETH 00:00: [place] OPRIM 00 Medical Branch MORPHINE DRUG Active High N/V Univers INGREDI 1-13 ity of 00:00: [place] 00 [facility] Branch Sulfamet Propensi Active 2020-11 UT hoxazole ty to 21 Health -Trimeth adverse 00:00: oprim reaction 00 s Amoxicil Allergy Active Hives UT maria eugenia to 08-08 Health substanc 00:00: e 00 Morphine Allergy Active Other UT to 08-08 Health substanc 00:00: e 00 amoxicil drug Active UT maria eugenia allergy Physici ans morphine drug Active UT allergy Physici ans Social History Social Habit Start Date Stop Date Quantity Comments Source History [facility] Health Alcohol Std Drinks History [facility] Health Alcohol Binge History [facility] Health Alcohol Comment Exposure to Not sure University SARS-CoV-2 [place] [facility] (event) Branch Alcohol intake 2021-09-10 2021-09-10 Lifetime [facility] 00:00:00 00:00:00 non-drinker (finding) Tobacco use and 2021-09-04 2021-09-04 Smokeless tobacco [facility] exposure 00:00:00 00:00:00 non-user History SDOH 2021-09-04 2021-09-04 1 [facility] Alcohol Frequency 00:00:00 00:00:00 Sex [birth year] At [birth year] Universit y of 00:00:00 00:00:00 [place] [facility] Smoking Status Start Date Stop Date Source Unknown if ever smoked [facility] y [facility] Never smoked tobacco [facility] Medications Ordered Filled Start Stop Current Ordering Indication Dosage Frequency Signature Comments Components Source Medication Medication Date Date Medication? Clinician (SIG) Name Name benzonatate Yes [id number] 100mg Take 1 Univers 100 mg 1-13 capsule by ity of capsule 00:00: mouth [place] 00 every 8 Medical (eight) Branch hours as needed for Cough. bromphenira Yes [id number] 5mL Take 5 mL Univers mine-pseudo 1-13 by mouth 4 it y of ephedrine-D 00:00[place] ([place] (BROMFED 00 times Medical DM) 2-30-10 daily as Bran ch mg/5 mL needed for syrup Congestion /Allergies . benzonatate Yes [id number] 100mg Take 1 Univers 100 mg 1-13 capsule by ity of capsule 00:00: mouth [place] 00 every 8 Medical (eight) Branch hours as needed for Cough. bromphenira Yes [id number] 5mL Take 5 mL Univers mine-pseudo 1-13 by mouth 4 it y of ephedrine-D 00:00[place] ([place] (BROMFED 00 times Medical DM) 2-30-10 daily as Bran ch mg/5 mL needed for syrup Congestion /Allergies . No known 2020-11 No No known UT medications 0-27 medication He alth 20:42: s 35 No known 2020-11 No No known UT medications 0-27 medication He alth 20:42: s 35 traMADol traMADol Yes UT HCl - 50 MG HCl - 50 MG P hysici Oral Tablet Oral Tablet a ns Cyclobenzap Cyclobenzap Yes U T rine HCl - rine HCl - Phy sici 10 MG Oral 10 MG Oral ans Tablet Tablet Promethazin Promethazin Yes U T e HCl - e HCl - Physici 12.5 MG 12.5 MG ans Oral Tablet Oral Tablet Omeprazole Omeprazole Yes UT 40 MG Oral 40 MG Oral Phy sici Capsule Capsule ans Delayed Delayed Release Release Meloxicam Meloxicam Yes UT 15 MG Oral 15 MG Oral Phy sici Tablet Tablet ans Vital Signs Vital Name Observation Time Observation Value Comments Source Body temperature 2021-11-27 39.67 Claudine last dose of [facility] :07:00 Motrin this AM [facility] [place] Respiratory rate 2021-11-27 16 /min [facility] :07:00 [facility] [place] Body height 2021-11-27 190.5 cm University :07:00 [facility] [place] Body weight 2021-11-27 94.518 kg [facility] :07:00 [facility] [place] BMI 2021-11-27 26.05 kg/m2 [facility] :07:00 [facility] [place] Oxygen saturation 2021-11-27 97 /min [facility] in Arterial blood 22:07:00 [facility] by Pulse oximetry Branch Systolic blood 2021-11-27 157 mm[Hg] [place] of pressure 22:07:00 [facility] [place] Diastolic blood 2021-11-27 92 mm[Hg] [place] o f pressure 22:07:00 [facility] [place] Heart rate 2021-11-27 117 /min University 22:07:00 [facility] [place] BMI 2021-09-04 27.80 kg/m2 [facility] 19:12:00 Systolic blood 2021-09-04 147 mm[Hg] [facility] pressure 19:12:00 Diastolic blood 2021-09-04 72 mm[Hg] [facility] pressure 19:12:00 Heart rate 2021-09-04 94 /min [facility] 19:12:00 Body temperature 2021-09-04 36.5 Claudine [facility] 19:12:00 Body height 2021-09-04 182.9 cm [facility] 19:12:00 Body weight 2021-09-04 92.987 kg [facility] 19:12:00 BP Systolic 2019-11-01 144 mm[Hg] Location: RUE; [facility] 14:32:00 Position: Sitting BP Diastolic 2019-11-01 86 mm[Hg] Location: RUE; [facility] 14:32:00 Position: Sitting Height 2019-11-01 75 [in_us] [facility] 14:32:00 Weight 2019-11-01 194.25 [lb_av] [facility] 14:32:00 Body Mass Index 2019-11-01 24.28 kg/m2 [facility] Calculated 14:32:00 Temperature 2019-11-01 99.2 [degF] Method: Oral [facility] 14:32:00 Heart Rate 2019-11-01 103 /min [facility] 14:32:00 Respiration Rate 2019-11-01 20 /min [facility] 14:32:00 O2 SAT 2019-11-01 98 % Source: [facility] 14:32:00 BP Systolic 2019-10-18 154 mm[Hg] Location: RUE; [facility] 10:58:00 Position: Sitting BP Diastolic 2019-10-18 93 mm[Hg] Location: RUE; [facility] 10:58:00 Position: Sitting Height 2019-10-18 75 [in_us] [facility] 10:58:00 Weight 2019-10-18 187.125 [lb_av] [facility] 10:58:00 Body Mass Index 2019-10-18 23.39 kg/m2 [facility] Calculated 10:58:00 Temperature 2019-10-18 98.7 [degF] Method: Oral [facility] 10:58:00 Heart Rate 2019-10-18 107 /min Location: R [facility] 10:58:00 Radial; Respiration Rate 2019-10-18 22 /min [facility] 10:58:00 O2 SAT 2019-10-18 98 % Source: RA [facility] 10:58:00 Procedures Procedure Date / Time Performing Clinician Source Performed OSI CT ABDOMEN AND PELVIS 2021-12-30 05:35:[address] [facility] POCT MOLECULAR FLU 2021-11-27 22:21:00 Ian [facility] POCT MOLECULAR STREP 2021-11-27 22:18:[address] [facility] OSI CHEST 2021-08-22 17:46:00 Candida Olivarez [facility] PATHOLOGY OUTSIDE 2021-08-21 00:00:00 Jed Reardon [facility] INTERPRETATION [facility] OSI ABDOMEN 2021-08-19 17:47:00 Candida Olivarez [facility] History of Exploratory [facility] Laparotomy History of Appendectomy [facility] History of Cholecystectomy [facility] Laparoscopic History of Hysterectomy [facility] History of Knee [facility] Replacement History of Hip Replacement [facility] History of Simple Bunion [facility] Exostectomy (Silver Procedure) Encounters Start End Encounter Admission Attending Care Care Encounter Source Date/Time Date/Time Type Type Clinicians Facility Department ID 2022-04-01 Outpatient SYSTEM, [facility] [id number] 10:41:31 PROVIDER Barney o n 2022-02-06 Outpatient [facility] [id number] [place] 11:18:23 [id number] [facility] 2021-08-21 Outpatient STEVE, [facility] [id number] [place] 13:19:11 LISSY [facility] 2021-08-19 Outpatient ANGEL RIGGS, [facility] [id number] [place] 12:52:48 [facility] 2022-06-17 2022-06-17 Outpatient BARBARA, [facility] [id number] Egan 00:00:00 00:00:00 BROWN [address] 2022-06-16 2022-06-16 Outpatient SAHARIA, [facility] [id number] Egan 00:00:00 00:00:00 BRWON 747 Method i 2022-06-16 2022-06-16 Outpatient BARBARA, [facility] [id number] Egan 00:00:00 00:00:00 BROWN 131 Method i 2022-06-16 2022-06-16 Outpatient BARBARA, [facility] [id number] Egan 00:00:00 00:00:00 BROWN 578 Method i 2022-05-25 2022-05-25 Ancillary 1.2.840.1 [id number] Univers 23:30:00 23:35:00 Procedure 43976.1.1 it y of 3.412.2.7 [place] .3.074195 .8 [facility] 2022-05-25 2022-05-25 Outpatient EL MDA MDA [id number] 23:26:24 23:26:24 Barney o nagi 2022-03-30 2022-03-30 Ancillary 1.2.840.1 [id number] Univers 20:05:00 20:10:00 Procedure 33467.1.1 it y of 3.412.2.7 [place] .3.431758 .8 [facility] 2022-03-30 2022-03-30 Ancillary 1.2.840.1 [id number] Univers 20:00:00 20:05:00 Procedure 67236.1.1 it y of 3.412.2.7 [place] .3.573470 .8 [facility] 2022-03-30 2022-03-30 Outpatient EL MDA MDA [id number] 12:41:22 12:41:22 Barney o n 2022-03-30 2022-03-30 Outpatient EL MDA MDA [id number] 12:41:19 12:41:19 Barney o n 2022-03-25 2022-03-25 Lab Libna Javed 1.2.840.1 [id number] Univers 00:00:00 00:00:00 Jed Velez 06414.1.1 ity of n 3.412.2.7 [place] .3.909870 MD Rivera8 [facility] 2022-01-01 2022-01-01 Outpatient GC_TNC_Lovi PRIV PRIV [id number] [facility] 06:01:00 06:01:00 tt_S [id number] Medica l 2021-12-23 2021-12-23 Outpatient [facility] [id number] Egan 00:00:00 00:00:00 YANELY [address] 2021-11-29 2021-11-29 Telephone Trudy Vernon 1.2.840.114 [id number] [facility] [place] [facility] 00:00:00 00:00:00 [place] 350.1.13.10 it y [facility] 4.2.7.2.686 [place] as [phone] [address] 2021-11-27 2021-11-27 [facility]patient [facility] [id number] Univers 16:00:00 16:56:53 SLY ity [facility] 2021-11-27 2021-11-27 Urgent Sly Arredondo [facility] 1.2.840.114 [id number] Univers 16:00:00 16:20:00 [facility] [id number] ity [facility] 4.2.7.2.686 [place] ILA?BLEA [phone] [address] MEDICAL OFFICE BUILDING 2021-11-10 2021-11-10 Outpatient [facility] [id number] Egan 00:00:00 00:00:[address] 2021-11-05 2021-11-05 Outpatient [facility] [id number] Egan 00:00:00 00:00:[address] 2021-11-03 2021-11-03 [id number] [place] 00:00:00 00:00:00 YANELY [address] 2021-10-29 2021-10-29 Outpatient [facility] [id number] Egan 00:00:00 00:00:00 YANELY [address] 2021-10-01 2021-10-01 Outpatient [facility] [id number] Egan 00:00:00 00:00:00 YANELY 521 Method i 2021-09-25 2021-09-25 Telephonic ESTEFANIA Wilson 1.2.840.114 [id number] [place] 11:04:05 12:53:20 Encounter Lissy CARDENAS 350.1.13.58 Health 9.2.7.2.686 [id number] 3 2021-09-04 2021-09-04 Office ESTEFANIA Wilson 1.2.966.756 [id number] [place] 14:04:50 14:42:37 Visit Lissy CARDENAS 350.1.13.58 H ealth 9.2.7.2.686 [id number] 2021-08-19 2021-08-[address] [facility] [id number] Egan 00:00:00 00:00:00 JAMUNA 455 Method i 2021 2021 Outpatient RENU [facility] [id number] Egan 00:00:00 00:00:00 YANELY 113 Method i 2021-07-01 2021-07-01 Outpatient RENU [facility] [id number] Egan 00:00:00 00:00:00 YANELY 873 Method i 2021-03-11 2021-03-11 Outpatient THETIFFANIE, [facility] [id number] Egan 00:00:00 00:00:00 CHU 763 Method i 2021-02-26 2021-02-26 Outpatient THETIFFANIE, [facility] [id number] Egan 00:00:00 00:00:00 CHU 635 Method i 2021-02-24 2021-02-24 Outpatient [facility]AN [facility] [id number] Egan 00:00:00 00:00:00 CHU 779 Method i 2021-01-08 2021-01-08 Outpatient THETIFFANIE [facility] [id number] Egan 00:00:00 00:00:00 CHU 704 Method i 2020-11-28 2020-11-28 Outpatient THESYDNII, [facility] [id number] Egan 00:00:00 00:00:00 CHU [address] 2020-11-20 2020-11-20 Outpatient PETAK, [facility] [id number] Egan 00:00:00 00:00:00 JACQUI [address] 2020-11-11 2020-11-11 Outpatient TRINA, [facility] [id number] Egan 00:00:00 00:00:00 CHU 428 Method i 2020-10-30 2020-10-30 Outpatient TRINA, [facility] [id number] Egan 00:00:00 00:00:00 CHU 447 Method i 2020-10-30 2020-10-30 Outpatient STEPHEN, [facility] [id number] Egan 00:00:00 00:00:00 KATEY 260 Method i 2020-10-30 2020-10-30 Outpatient STEPHEN, [facility] [id number] Egan 00:00:00 00:00:00 KATEY 261 Method i 2020-10-23 2020-10-23 Telephone Pcp, [facility] 1.2.806.732 [id number] 00:00:00 00:00:00 Patient Health 350.1.13.10 Does Not [place] 4.2.7.2.686 Have A Professio [id number] nal 044 [address] One 2020-10-05 2020-10-05 Laboratory Lab, [facility] 1.2.840.114 [id number] 15:32:07 15:52:07 Only Fam Pob I Health 350.1.13.10 [place] 4.2.7.2.686 Professio [phone] nal 044 Office Building One 2020-10-05 2020-10-05 Letter Doctor TALIB 1.2.840.114 [id number] 00:00:00 00:00:00 (Out) Unassigned, LÓPEZ 350.1.13.10 Turner [facility] 4.2.7.2.686 [id number] 2020-10-03 2020-10-03 Outpatient STEPHEN, [facility] [id number] Egan 00:00:00 00:00:00 KATEY 640 Method i 2020-09-26 2020-09-26 Outpatient [facility] [id number] Egan 00:00:00 00:00:[address] 2020-09-23 2020-09-23 Outpatient DUNLAP, [facility] [id number] Egan 00:00:00 00:00:00 BROWN [address] 2020-09-23 2020-09-23 Outpatient DUNLAP, [facility] [id number] Egan 00:00:00 00:00:00 BROWN [address] 2020-09-23 2020-09-23 Outpatient DUNLAP, [facility] [id number] Egan 00:00:00 00:00:00 BROWN [address] 2020-09-23 2020-09-23 Outpatient DUNLAP, [facility] [id number] Egan 00:00:00 00:00:00 BROWN [address] 2020-09-23 2020-09-23 Outpatient DUNLAP, [facility] [id number] Egan 00:00:00 00:00:00 BROWN [address] 2020-09-23 2020-09-23 Outpatient DUNLAP, [facility] [id number] Egan 00:00:00 00:00:00 BROWN [address] 2020-07-23 2020-07-23 Outpatient THEKDI, [facility] [id number] Egan 00:00:00 00:00:00 CHU 397 Method i 2020-07-01 2020-07-01 Outpatient ERGUN, [facility] [id number] Egan 00:00:00 00:00:00 GULCHIN 383 Method i 2020-05-01 2020-05-01 Outpatient LORI, [facility] [id number] Egan 00:00:00 00:00:00 NEHEMIAS [address] 2020-05-01 2020-05-01 Outpatient LORI, [facility] [id number] Egan 00:00:00 00:00:00 NEHEMIAS 746 Method i 2020-03-19 2020-03-19 Outpatient ERGUN, [facility] [id number] Egan 00:00:00 00:00:00 GULCHIN [address] 2020-02-14 2020-02-14 Outpatient ERGUN, [facility] [id number] Egan 00:00:00 00:00:00 GULCHIN [address] 2020-01-31 2020-01-31 Outpatient ERGUN, [facility] [id number] Egan 00:00:00 00:00:00 GULCHIN 187 Method i 2020-01-02 2020-01-02 Outpatient ERGUN, [facility] [id number] Egan 00:00:00 00:00:00 GULCHIN 723 Method i 2020-01-02 2020-01-02 Outpatient ERGUN, [facility] [id number] Egan 00:00:00 00:00:00 GULCHIN 357 Method i 2020-01-02 2020-01-02 Outpatient ERGUN, [facility] [id number] Egan 00:00:00 00:00:00 GULCHIN 186 Method i 2020-01-02 2020-01-02 Outpatient ERGUN, [facility] [id number] Egan 00:00:00 00:00:00 GULCHIN 131 Method i 2020-01-01 2020-01-01 Outpatient ERGUN, [facility] [id number] Egan 00:00:00 00:00:00 GULCHIN 825 Method i 2020-01-01 2020-01-01 Outpatient ERGUN, [facility] [id number] Egan 00:00:00 00:00:00 GULCHIN 826 Method i 2019-11-01 2019-11-01 Appointmen ESTEFANIA KOO Thoracic [id number] [place] 13:30:00 13:30:00 t; CAREY KOO Surgery - Physici FARZANEH, M.D. [facility] shai Hinojosa 2019-10-18 2019-10-18 Appointmen ESTEFANIA KOO Thoracic [id number] [place] 11:00:00 11:00:00 t; CAREY KOO Surgery Lis PATINO M.D. [facility] shai Hinojosa 2019-10-18 2019-10-18 Outpatient MHSE [id number] 09:08:00 09:08:00 Delvis rivera [facility] Results Test Description Test Time Test Comments Results Result Comments Source Pathology Outside Interpretation 2022-03-26 23:58:33 Test Item Value Reference Range Interpretation Comme nts Materials e5pozQJrJSIqqPNhQwPqYQHqWYKng1okIAHjgNNiOlEhZeBgUxKgXyqbrAXsLBVeEmYca5yww811yEKu y9viEYAlWdQ9iKMpWYMtlSYiP192ZNPjWDlav1rlg6YeJFXqzDLal1K8WAFMdczmaQo5gZviJ51wo5T9 VsqpQ8fzSLQdNMWgY5BhVD9dNNTbUhe5SMT2ZXB9KCD Received eCZGeD1CdNS2sDSFlnPXjXYn1p6gnkJlfEONfLTY5h9tlRPjpmpEcEQ9iho2ayMr9r3cjqkXlVXGhKJD evBQDDFBzH2PryQhwQg4eaGa3vSlgJuqnWBP7Wke2FP5xjj85lye9xLkgOPVtyidlAoK9VFpaTNYpbzl sSFs5NZweURUrlCuxBTtnRKPtioaeHXscJUZekCU8BV (test code HimYNwV1AgPZJcGCnwJKMvyak4TmImMb2yyENkuRnfQQqti5zsn5igmDXcCok9IVKlWhVaIjsjCWlbj0 Yef3kcHHPawk5gBOX3pTYycFxgc9C0uKOtHVEklYYjpjEuJVRkye51dWBvtBOraRKimg8kwmZtxWMxxP IeVNX8vSZxajWdJALhwILcIOVuXK3mzGBtEHSqnB3xh = 9973) yuvMMGtAvKpiahuQYJwoFqpxeAsMx7ugBytHZS8NWmkW7zfkK6xRbQ6QDejM3zneT4pXVg9OPeriYF3X ZUdbT4xYJ5betxba1lxUdEbXL3tvainu0mpTcFnWG3xcnn4r9oyOJK1PJrcTUSlIeJ7voO2PPOmbWExY NAzfEgnPTofb436CWW2BuJmQYZjz2UfW5YpxNhwZ66n lJxcP62bWWAyyWodfR8ynToakA9ySgWvAcMiVQf6lh42DOh0hdchdAugOWv0qiInGFYsCXH0UJOuuINz TTCdH3l1xqLrOPEvSWC6PUItlOEdVVGvC5e5tuGqTKM6QSw4yiErECVhkXRqcWWyMTZaSlWvlZUfAMWo BqOlTIOycIUatMZojUGlyF8ccSsjYDQfhNWjfC6hTVX 2NCHcyurzQeRvwGVeMRJugNEzvk06RLWetnGgpKUscVekbSJgRKR1OQOsULSbRITpFMZ7XJNqDfInvmN fOVcvbZHiXOIoMSXuZFFoECLyTDF2VDXcKjBqycDfADumjVVgAFJeHNCeXQRfZLEpXQQ9DODwHqNpymA mFEahqPDjCDJxQOBdGWWaXLAoWBE9BTMgBaJppzDtPM sbmUDvECAyFUohjDDnSHA4Z1eyaOEqQEQpXTezoRJtWJToF7lrjIKuLZizAIXgjRYpLtizPYHcuPPpWt SiK7ttIBMiJsEcE4AugXa9KSToTFBwchNqvJNliOiahZVqIHN5SAIxCZYwDWZmRFS7MSMdTnDmzfGfNU ugbQIsPMSiCWHpMJUuLLFcQFV5CCNfXmYlckOxEChhi NSxOKSjNNRcDAZsWULnUZW2NKTzRyUkxuRdUJvuiVUjQMZqTFHkDSShAXBvUJU5ZYTsGvWmaoRmAUnbi ABxELEbQXxdhJAuNFB7P8ywcAVpSKMaIVutqAYjHWAxX3zcuJKrPOfxVYGguPWzBcwoSAHwjFWsGmTqO 0tiOOVnXnNaC8KqwCg4HmXkDQAljtJgdGLtlKzeaJEa FXV8MOGcQXLmZAMrVUF1OGNsBqHisrRkSRoqwPUbDXFgWAVlFBPzNKKnBYH5CJXhTnRhdqZiQVoaqHAy LPIjDDHuVFRkAUDrKBT4MOMfZdGracSdBBeyhFAdMAWoVMAcHRWjEVDhSAS3RZKdEvIugfEeVRkhfVRr ODJaJFjsxELiGVX5U0wjzUGqHQLcBUvsqSQvXPFxM9w jzLEcRGyfZHRfaDEqGzppALPysGCmZwKfF0rfJKMfGaVhA9GdkLo1WyPpJSOavfGvbB09Nvure7KdJTR rKJS3BWhqPGxjoNxfcUHimfvsXDzqvaFpJMdfpbiiXCWmFKbwY4xyKuTyCDRlyXfzLLcdd3HwEROoDIR yYmbfoaHtYUSbMELaWKWbkC8aSelyQ2OayA6eZAxiSs oxU3dnCQIvv6VcfC9fSQdujGHvtfvxODhxwrWoAIimpqijLSJvZHwxX5ujQzPtPDLgwZklOTwua2QqPX AhJYJdRteqhqWaSAc8zqJwFCYisRjffRPmQDnfrqLdyGvnn1IxnlQnaTojAYClGTz4tlHjbdrcjJv8bB MtoUewANEceEorpD3vBeXpWsYoOShpkPPdqsjdRTejk tTkXKtcprnaUDMtGYblG3inYuFkZMFunTmuPGkdt7HsXNItWXJrYefaguNxPUOvD06koZXpaCMoECYxV BnwWMAtLUPxFqByjJMdDiFpOiGtvAbzlKwdLRgnWxCxEQPuZOzaM5chOlWoY1OkJSGsUyEbgFNkW0heA 9PwhRinHUBoHGncgIFgRWMzjMBlMHV4qRCglgXpmMQw wFQaZXSpMAekMPS4aBDpksznvOLytdatOHnhhsR0IULiNCnsLANdTYGkWsSlzTMvVnCaStZdyRasgCsx GSoiXgVzDKIfWWdoK3aeAnVkV2RxEUMmLbZnOcSVETNqwZQuRNhhnEYamuwzUBcqmkAqDGuasxezINKo KGkaI9gmYoWrUKRzbXyiVKcmp1FxXAYfBVIjQqbxjlD rHZu8tuHeMYLjkBvrkY56Umuvzd12POZsn0qsCSMwZ9SayJCtLGCwtNIoCWrsRBqopVHmPPCdVxglDQF mrEZbNGFmHWtxcOOpNAIpRiUbEIDgcQPsAVQbBVLelVSnSMC0V0i8otAfEQNwAXf2faLgSBSjHdMhtCZ uFPQ5UGi4AwnmnpJ2zOCgE1o4KegoutWqVAwyuBXslc 69VLByttGqsVPhqDftcBXsOWE2CVAgVOYhAURcOWU3QABpZjJrnyGrMEqkbRGlHPMbOXMwWLDyIYUwWA T7YFVxVcRmkvOpVFxvyEXxTLBzOMOhPCGhTSImMID8ITAeKmUkkpFyLZcbzITkNGRsCIKyWUAzPJEbRG U6IPImCrKgmfMlXHflkGVfTIXgUCbbjVBtSZR4X2hbr DVnNGOhZIwygWSbSEZkH8hkaSUrVUuhWSUtdFVtBlcfHFPaiVTvSoOqA8daSIDvVkJvW9IopRz2IFSlJ KXaxyZpbFYpvDnwwACuVDH5ZBEwAZVmZMXtDYI9BQHaBbMicbMeCWyiqEFoORRjYTImABXyHQVwYEH1J OTyPtUztzAsQYrkmBIjVCNjMLCuDJYjLRCpRMG3VDJi ZlWiagIjOCiwtKWnHOUxXOOaAMJlJCFpKQO6JFFaNoYirqRiWWmybADzQCFkFSbapHEoCRZ3W3tmdRXk MBHbGOgvbYYyGARyB4qatEFdBVipLVHlmQEaEdgcTXSqnNUxZgCnX1ehLVLlNxAbH7DenFq2BkFwZKLb vsEgxUVyhKaszEIyBSB1RILhRMFmVUAfROZ1UZWxVhP wkcVrJMmxcCToDASuORMbCZOmVQYoGWA1ZKGtZbCgcgYpEGcwrRGlVJCyRIWbRJOnMHImFEI5KJHtGwG wstUqLJohvFRlQAViNFFnQUZtVJUgZAY5UZAxXnYsigFhHZfxdCWfCCIaYFvxlXUuTNX6F1tdhQArIJZ eFMqkgVQxUFFkM0bkkMGeAFczIQHlcKHeJequKKTmzV LqDoIpM1soZLLpIaHmG2IakTh3BvHsGSLzbfLqeH89Ctgoe5XwZYUhBYH9FOioEBlhtAjyrGPlvtugPW hqfgG8JVXeFDkkMYJvHGHdViOfwRErFeMsNfGnfGzruNewKUbtDwIwWJWmIZuuB1bpBjNbA3WeQEYvFc UhNE0sO7VzKkUvPfn4CFykLFO5PJFSUSSdLORLD1XRM horZIWVP4QszWxdjV3eVaXiXtCaUNcbTR3vKDNrI3fbiDXqRALuCHRdH9gfFqIcbK7dsTtdHGdfHfPeG zNuZUxajDZnwZmeNTdeKIKkzrKydB86Yyoio0WxRUCwTKE0XPmrUFajuCoutGHmiactKHdzuhO0DSHoN WluXGYxXGZzMjBcbGFuZzEwMzNcaGljaFxmMVxkYmNo KVAhLNxsU0qtUlXiH5DaELJdMlAqKCVsIq3nNBXuRXVxHAtrBTFnVXGeJqWmoOHzDmSuFwSqpXfcgOkx ZZcvRmXbRRYvCFytH0tbKyRyM6LnPXPhFbOieAZrS0zbC6HflExcVILmPXogvXYwDECybVNoJIB1tTSl xgZvzGeqgPwcoT9fHiSoGsVeAFwrwDDsicjoABvuioB pPGrpzriuPPLbZOudF5bmNvGzVAOjkUgcEVcfy7CxZKJmGPFbMueygcGwDQCyHECmXwGoLunibKSrmpp nEHswmlDjBMoaxmrpZPXfCWceC8vdEqHwBIZrpGkaQGtev9LeNJPcYAQeSqaktqRmVTm1joTrCIYibHk zqW27Ifylrx09JBFnyhSkv8ZqBKLrLNJ8LTqxVHbmeK cawBGxruyfNLqbxeV5RFXkJAnrOVVyRNBzOxHkwUAgCyQtKeUsiCxhlRbhYNntKtYrXIYnXNsjN2dvBy FcZnMyMFxwYXJ9 Addendum 1 e7vrfONoMOMypOA1BwZbVGSvx2dql1HntLKrsHOdXTqveGSemrJulr27mNB3nR25MA8pURLfTwL8NBBu ixO0Ovg0RSMvMZMhcIXtV949l0twx6vhadVnxSV0ZRObGTPnT7LoDP4eGHKxvIYsA39vyIFtELS9JJZn LBBmiLDrQGMfPFM5NLYmqFXcY9eoLVCrEU6fhpclXPd (test code jQMulQMDjxBM5TELojAXsK0WoDCSrXNdvGLZhrpf2EkFkPk8nsCPrsWsgSKorNNQzVGPwAFdgQXQnZnL bK4TjUR13eZPvYEDnFLTCQPTmIIM2WJg9CDFxTJOOTuhaECZOZD7ZB9WiKLGaFZGLEMDvq8fcQRQ9LPF ig35sPNPsMj9zLRUzQTeaiUXnGCWrGYuePEQvcFe4Fh = 37) OxvSanQyAtCOGvFSWIoWTsutqeyo5rjJvybhfvj2HpM8KbJelziSL6NVfrXcntPVYniWwrVBFeVVXnHF zlOTtqbG0nRKKjIOZebWAlMAIheBXxAVXgg53xitdvKQ5fMZOuufQjJS2hAUCoJYQlsmTMzdPzZNkaM2 7ikoX1IXuyOM43rDYmZSVgPKDebxwzZSRxaTNtDDwkX XJ9 Diagnosis k0rrzPVuGHErdUS6LjLkXAEbt1yhj3JwuVQbzSHiYDgyhZTscbSset31aKF0dI25HP5kGKRvUrA9XCVp pwX2Qll6XYBiQQHnbTXdJ391w0eig9qgdoInqBT6LXXvPJCmJ1IgCM6pYSNgpTOtI79ycKTdNGD2KOOl RRWyvFRdMAUjKFW1CFEzjYKrR7tvHDSgEA8naqsiUVe (test code pJTorXHIprGD1HDVmaCXpM2KvYHVvYIckNIFhkcu0JyBqNj7vdRCnvXglADltTCOwLBWdZLqkAUBlEjW sJ5CrTT70mYCtSAXhWQXKSKWeZDV0CKf1NOLkGTNGNcvvGDUHQK2FC8WwOSKyDUIWLAOqm9scYWY8AUW ug65yRMGgSf1jLPAuOKmywJNaYHWrXMukVQVwuYw2At = 34) WeyWizQlQbSGMmGXyfgvDjlE1sd6v6jJCvFVQbrgTonxukQO2jx4LvTOJuU30utcDqqEMwKBFeI6Fkw9 60GMKnnodifIMdEbIdXrugBcClLIzpxhOyWbIsXaUucHpdFKF3sz7uKWtzIxdoxd4neQQrxCxpfKgluR vfcLothwNvzgUsxtHhG5EnFJFkwGSbuVmzKTWttNfzq cSxjnMpdTMxmmmqzZWiHH01MCNyQpIrZLIuUX4oOTMyo8OeYQVbcs5eIO9aMWLtKCYwn20fGI74WRTzG BigDPDcMARkd9Dln7v3IGHlZsQdL25bDXMxusWtoFBbeRDrGEYlcD4fqIwspVViLT4eJCUsuM9rzFZrd 2VwZIZmojB3vI0emaFmsfKtEM58LQqoAmQqGimlNPDs HcPzBAA4sA1sGY1ipobeqbKyLVWxFLFks8KqaSIvw7DcODFrfjPChsTvpHAkm7AwyTGad44wqZbrCw97 LSoplNWpg0XaZhfgJGKggNWzBYfyDvWgSCReHQilxS73NbYsIu0wTDHcHB04KOW7DIQrcT8fe1c1BRNf wdk3WLXlUYwvrPmihXxgTHSyqGObpZLbRDAat5woXiG hVSFzd32rWEiuQLHyY06ojXFszNOqTbkhuGWjGTSokpCBQbUVdKAjoxpjnj7ikTfdflaee2ZyN3XpJxh peZQ8JLgtWmufJNNmxEMyCXExAUJsOCSjQ32oKHZjgNUwCydkM3mnnYW9jU1we3m1VHanoHGbf6Ocs0H uFRZnBAWoHVPyGREkcL8gmEqxEDOdpasgCCEscLKsPW BhcmRccGFyfQ== Comment p0jwdXIaQDAbbQN0RgJmFJFbc2naf8MlyQFqcYUzKBldnUDejbYuno03wIT5aY25LD7pLQWsWdS0SXWs hpP0Aet0WLSjYFCnkIGrK664y3uvj4blaqQjrSO4sAjsMWSllxolCfF9LXhaAAMywsmbWNe2KPidJEHw wOX7IJFhfPFaB1MdCFSiVF6yqvp3BEQ8JQioNOYcOjT (test code 3PKIhmNYxSNHzwMpkDBwxb567WDR3OtCjQSNokiRpaNurlE7kHtLyAAGkVPaKwTNavZY3XXAwmY6irP5 vuJgxwF3aoNIpwYTtjFXrbOLstdGww9xkzdD1eXL6DDCkMXSyfSLisIYnPMCsyMFllgCgdVPqbxIcONz zbWb4QZOpg1BzBkE6BS0nVDQmphcyPVokiVQaGYPgKV = 9835) V7aPFmc1Ieu18fHZTOBopuKZVXDHQ8EBXyNVHsgK8fNMKpg535yWNxoHAgtHOoQWP1lR0dUYANJxKzIH RNTCTcKQVxUHG1u7RnIstBYCGgKVYnzpHdZ2FbLdJrNGQHDDG3YCacQ2karPumhENpyvJkN6NrVVJtU9 dovm2izWFdZURgcLKgSVOlkcQXzUFcw5IuvnKgyTXby Y4bsR4whqLkjnEcrZgzq8Bbl4VvPBMzHZ8cG90pfWHqC4QftprdMrY7MDx8GRhlPVJmIJayIW9piC2tR IZzALJlCFEtlGO7NmIMfJNgEDskTlDvXA60eQIgWAJwRLfzb9XnedNjmzDifAIupkUlBOPgIYS2sJTxQ J4aCQEjmrihusEfnWPnr7BqCIP0lESalMGlS8FqmtJd fxGwORHcKA5sU91ioiCgH4SnCQUslYBnsF7gNEX9H5fqBRJwZZ7dYUP7KZCzo9Qzml68ruJiNQcbd9En ZDEsp60lMuPyBW2tuvydm05vHWhprIaqrrYiG7YgrvEiU7scyxtkyr3sFYUjdkwhHQBaDrX5OYX9Ex3p jALxNJYjiL00fc3ngBG8x0CyVI8uD0ZlTFD3EJlnHKK mlzDQf94bvfEhQTNpgWLmqtLkNEKcvkIgSl2zOZWxyPqfzBHyIHQxq3SbeItkvw1jjOCcFMEwkehaRAI 9 Disclaimer d3knvCWwVXSxkODwEoPwHLUuNGIwq3wtLSIpmMWcWfLsMvWeFrXsZvmmfZWkSCJzTiLho8bws294aMRi x7msVVDuUcK7ySEyWPMraDGhL181SIQkJHdhy5scb2AoPAJpjXExp7Y3WAMFnnkykDm4wNheP90na7C6 LrenS5kiRDFkOUVbJ4ZqFA3uURAvPer7INQ3ZZZ3YJF (test code nDLUyZ5KjWS0bFNCkoXXkQQe7j3wrjCtaDVBxHCO0y4znXObksmPqIC5hbg2leUm2u6xyywBcOCUyDCL alKQHPDImI3UmoAwsHp7gqEt5zBicRsglKKU2Etp7KY6ulm47uyi3vAuuEQAcebrkDsG0UIteCKWdvic uILm7SGeeUASqzRT5AXLgiFCbN8LeXXPpLG4poiv3GQ = 9844) P3REljKXYbVgY1JCUnaKXxNNNlgExnGMrqq440FKJ5MlTbFF4uA4Gec3M0xV8cjIViAIIryHLvIdOxLO Atde1ugGPvQUnxt0SjSQO6emJ2eQFizAXgRHWlTU78Oxezn1DuTbkuMNI6RIUiomIwp6Gia4ajDxZigk ItX0ruB0TaNKEaRMHyRHJbWaEmrlWdh0Zwn4XzhCShv Uy3o9xhNFEpYTGqnRncx9qlTRZ8FCBpU7B0zJKgr3ikQAywRIYumSC4cuR7FWNgdGGdV9AyuL9rBONbB O2xspf7d6lnIKN0BGleXCVhVuF7loY7DNYjrTEtQNAnrKpqVItds347JTC5ViYuLGYer8UoR9GsnEtiX 73hnJyjZ37lCZIgrNvlzP0yhMqwpZ9aBhKkCdCtKWrp sTipdJBkolohZWaeguN5HXhlocxrVPWlXCvgP1ljBtApDOAsqAdiLUnbn6UcMNYqUOBcCprzxzY6YZAT a73kQOHkl8KlWKAgnM8fgPZrCQycvoLahWG1RYdbyhOkEqXvjaBvULKgmU5tUVPtUE5dJDNcijTffb2j mdJbGZXrMUBnU3SnfyxrbIrxegGfZWAxxa8wlwZsNRJ 0TUPMSA8YQSUkLRXau66nILSxlPkpiC0gzDRvsqOyLACit3ZxmB4cnHMRZFWzR9maES8iZDtpl8AkjPZ efQCqqTS4CLByo2HgZlCwdoLtmYAafFUcY3LddOzjJ2kgHTZqDKQvylGiiAGui2RcXRSbtCK4yLOvLQ3 HXtQEg13nDRGuUFOZmoEyULOsmOsobMU8yrW4zE5nYh QGGrRztBHwiGBmLvkiYFKim417qr5msuX6MCLzLDInjzwil6CpVSGjNIJwlQ96MCIsGPLndc2kjbfktZ MiprKoM4Lgecg6dZ8sHZNuTIxyCFTlBIWxAxKkmMUkGlIvSeQntPqkgNrqVEbzRnXtSNQgBVixT6cnUp FcZnMyMlxwYXJ9 [facility] [id number] 22:32:52 Test Item Value Reference Range Interpretation Comments POCT Molecular FluA (test code = Negative Negative 70159-9) POCT Molecular FluB (test code = Negative Negative 60432-8) Lab Interpretation (test code = Normal 80633-5) [facility] MOLECULAR [id number] 22:26:40 Test Item Value Reference Range Interpretation Comments POCT Molecular Strep (test code = Negative Negative 63203-2) Lab Interpretation (test code = Normal 94936-3) [facility]-CoV-2 (COVID-19) RNA [Presence] in Respiratory specimen by ADELAIDA with probe [id number] 21:35:28 Test Item Value Reference Range Interpretation Comments SARS-CoV-2 (COVID-19) RNA Not detected Not-Detected [Presence] in Respiratory specimen by ADELAIDA with probe detection (test code = 93428-0) Whether patient is employed in a healthcare setting (test code = 39671-8) Whether the patient has symptoms related to condition of interest (test code = 79722-4) Patient was hospitalized because of this condition (test code = 12670-7) Whether the patient was admitted to intensive care unit (ICU) for condition of interest (test code = 38989-6) Whether patient resides in a congregate care setting (test code = 53269-3) SARS-CoV-2 (COVID-19) RNA [Presence] in Respiratory specimen by ADELAIDA with probe [id number] 07:00:55 Test Item Value Reference Range Interpretation Comments SARS-CoV-2 (COVID-19) RNA Not detected Not-Detected [Presence] in Respiratory specimen by ADELAIDA with probe detection (test code = 82244-6) Whether patient is employed in a healthcare setting (test code = 96256-4) Whether the patient has symptoms related to condition of interest (test code = 81157-6) Patient was hospitalized because of this condition (test code = 80319-4) Whether the patient was admitted to intensive care unit (ICU) for condition of interest (test code = 78869-7) Whether patient resides in a congregate care setting (test code = 40230-8) SARS-CoV-2 (COVID-19) RNA [Presence] in Respiratory specimen by ADELAIDA with probe [id number] 14:44:09 Test Item Value Reference Range Interpretation Comments SARS-CoV-2 (COVID-19) RNA Not detected Not-Detected [Presence] in Respiratory specimen by ADELAIDA with probe detection (test code = 10173-4)
--- NOTE | 2022-06-18 20:23 | EDPHYS ---
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 20:19 The patient or guardian complains of pain, that is acute. right shoulder. Onset: The rn symptoms/episode began/occurred 3 day(s) ago. Modifying factors: the symptoms are alleviated by nothing. The symptoms are aggravated by movement, rotation of arm. Severity of symptoms: At their worst the symptoms were moderate, in the emergency department the symptoms are unchanged. The patient has not experienced similar symptoms in the past. The patient has been recently seen by a physician:. Pt reports right rotator cuff surgery a few days ago, increased pain since then, usually takes hydrocodone tid but increased to 4 times daily and not working. No fever. No new injury. Reports here for more pain control. . Historical: - Allergies: 19:51 Amoxicillin; vc1 19:51 Bactrim; vc1 19:51 morphine-vomiting; vc1 - PMHx: 19:51 GERD; Hypertension; vc1 - PSHx: 19:51 Appendectomy; Cholecystectomy; Fibrous mass removed from abd; hysterectomy; L knee vc1 replacement; R hip replacement; right rotator cuff; - Immunization history:: Adult Immunizations up to date, Client reports receiving the 2nd dose of the Covid vaccine. - Social history:: Smoking status: Patient denies any tobacco usage or history of. - Family history:: not pertinent. - Hospitalizations: : No recent hospitalization is reported. ROS: 20:19 Constitutional: Negative for fever, chills, and weight loss, Eyes: Negative for injury, rn pain, redness, and discharge, Cardiovascular: Negative for chest pain, palpitations, and edema, Respiratory: Negative for shortness of breath, cough, wheezing, and pleuritic chest pain, Abdomen/GI: Negative for abdominal pain, nausea, vomiting, diarrhea, and constipation, MS/Extremity: + right shoulder pain post surgery Skin: Negative for injury, rash, and discoloration, Neuro: Negative for headache, weakness, numbness, tingling Exam: 20:19 Constitutional: This is a well developed, well nourished patient who is awake, alert, rn and in no acute distress. Neck: Trachea midline, no masses palpated. Cardiovascular: Regular rate and rhythm. No pulse deficits. Respiratory: Speaking full sentences, unlabored. No increased work of breathing, no retractions or nasal flaring. MS/ Extremity: Pulses equal, no cyanosis. Neurovascular intact. Right shoulder in immmobilizer. Surgical wound c/d/i. No erythema or fluctuance. Vital Signs: 19:52 BP 141 / 87; Pulse 74; Resp 20; Temp 97.7; Pulse Ox 98% on R/A; Weight 92.99 kg; Height ja4 6 ft. 0 in. (182.88 cm); Pain 10/10; 19:52 Body Mass Index 27.80 (92.99 kg, 182.88 cm) ja4 MDM: 19:48 Patient medically screened. rn 20:19 Differential diagnosis: post-surgical pain. Data reviewed: vital signs, nurses notes, rn and as a result, I will discharge patient. Counseling: I had a detailed discussion with the patient and/or guardian regarding: the historical points, exam findings, and any diagnostic results supporting the discharge/admit diagnosis, the need for outpatient follow up, to return to the emergency department if symptoms worsen or persist or if there are any questions or concerns that arise at home. Response to treatment: the patient's symptoms have mildly improved after treatment, and as a result, I will discharge patient. Special discussion: I discussed with the patient/guardian in detail that at this point there is no indication for admission to the hospital. It is understood, however, that if the symptoms persist or worsen the patient needs to return immediately for re-evaluation. Based on the history and exam findings, there is no indication for further emergent testing or inpatient evaluation. I discussed with the patient/guardian the need to see the orthopedic surgeon for further evaluation of the symptoms. 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 I discussed with the patient/guardian the need to see the primary care provider for further evaluation of the symptoms. 06/18 20:00 Order name: IV Start; Complete Time: :44 rn Administered Medications: 20:44 Drug: Dilaudid (HYDROmorphone) 1 mg Route: IVP; Site: left wrist; ja4 20:45 Drug: Phenergan (promethazine) 12.5 mg Route: IVP; Site: left wrist; ja4 Disposition Summary: 06/18/22 20:22 Discharge Ordered Location: Home rn Problem: new rn Symptoms: have improved rn Condition: Stable rn Diagnosis - Post-surgical pain of right rotator cuff rn Followup: rn - With: Private Physician - When: As needed - Reason: Recheck today's complaints, Re-evaluation by your physician Discharge Instructions: - Discharge Summary Sheet rn - How to Use a Shoulder Immobilizer rn Forms: - Medication Reconciliation Form rn - Thank You Letter rn - 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
--- NOTE | 2022-06-18 20:23 | ER ---
Nurse's Notes [facility] Name: Adelita Lemons Age: 61 yrs Sex: Female : 1960 Arrival Date: 06/18/2022 Time: 19:32 Bed 14 Private MD: Diagnosis: Post-surgical pain of right rotator cuff Presentation: 06/18 19:49 Chief complaint: Patient states: "I had rotator cuff surgery on Wednesday and the pain is vc1 uncontrollable. I see a pain management doctor but they are giving me hydrocodone 7.5 but they are not helping.". Coronavirus screen: Vaccine status: Patient reports receiving the 2nd dose of the covid vaccine. Moderna At this time, the client does not indicate any symptoms associated with coronavirus-19. Ebola Screen: No symptoms or risks identified at this time. Risk Assessment: Do you want to hurt yourself or someone else? Patient reports no desire to harm self or others. Onset of symptoms is unknown. 19:49 Method Of Arrival: Ambulatory vc1 19:49 Acuity: CRISTAL 3 vc1 Historical: - Allergies: 19:51 Amoxicillin; vc1 19:51 Bactrim; vc1 19:51 morphine-vomiting; vc1 - PMHx: 19:51 GERD; Hypertension; vc1 - PSHx: 19:51 Appendectomy; Cholecystectomy; Fibrous mass removed from abd; hysterectomy; L knee vc1 replacement; R hip replacement; right rotator cuff; - Immunization history:: Adult Immunizations up to date, Client reports receiving the 2nd dose of the Covid vaccine. - Social history:: Smoking status: Patient denies any tobacco usage or history of. - Family history:: not pertinent. - Hospitalizations: : No recent hospitalization is reported. Screenin:52 Abuse screen: na. Nutritional screening: No deficits noted. Tuberculosis screening: No ja4 symptoms or risk factors identified. Fall Risk Secondary diagnosis (15 points) impaired mobility. Assessment: 19:52 Pain: Complains of pain in right arm Pain at worst was 10 out of 10 on a pain scale. ja4 Quality of pain is described as aching, Is continuous, Current management is with .... Musculoskeletal: Reports pain in right arm and back of right arm. Injury Description: surgical. Vital Signs: 19:52 BP 141 / 87; Pulse 74; Resp 20; Temp 97.7; Pulse Ox 98% on R/A; Weight 92.99 kg; Height ja4 6 ft. 0 in. (182.88 cm); Pain 10/10; 19:52 Body Mass Index 27.80 (92.99 kg, 182.88 cm) ja4 ED Course: 19:32 Patient arrived in ED. ja2 19:44 Jose Short, RN is Primary Nurse. ja4 19:48 Neil Angelo MD is Attending Physician. rn 19:51 Triage completed. vc1 19:51 Arm band placed on right wrist. vc1 19:52 Patient has correct armband on for positive identification. Bed in low position. Adult ja4 w/ patient. 19:52 No provider procedures requiring assistance completed. ja4 20:45 Inserted saline lock: 22 gauge in left wrist, using aseptic technique. ja4 21:36 IV discontinued, intact, bleeding controlled, No redness/swelling at site. Pressure ja4 dressing applied. Administered Medications: 20:44 Drug: Dilaudid (HYDROmorphone) 1 mg Route: IVP; Site: left wrist; ja4 20:45 Drug: Phenergan (promethazine) 12.5 mg Route: IVP; Site: left wrist; ja4 Medication: 19:52 VIS not applicable for this client. ja4 Outcome: 20:22 Discharge ordered by . rn 21:36 Discharged to home via wheelchair. ja4 21:36 Condition: stable 21:36 Discharge instructions given to patient, family, Instructed on discharge instructions, follow up and referral plans. Demonstrated understanding of follow-up care. 21:37 Patient left the ED. ja4 Signatures: Neil Angelo MD MD rn Alexander, Jessica ja2 Nandini Cortes RN RN 1 Jose Short, DISHA RN ja4
[2022-06-18] MEDS ORDERED: PROMETHAZINE INJ 25 MG/ML AMP ONE (20:43)
[2022-06-18] MEDS ORDERED: HYDROMORPHONE HCL 1 MG/ML INJ ONE (20:45)
[2022-06-19 01:37] VITALS: BP 141/87; TEMP 97.7; O2SAT 98
== END 2022-06-18 21:37 | disposition home or self-care (01) ==
LOC: ER 19:30
DX: G89.18 Other acute postprocedural pain (principal); I10 Essential (primary) hypertension; Z88.1 Allergy status to other antibiotic agents; Z88.5 Allergy status to narcotic agent; Z98.890 Other specified postprocedural states
CPT/HCPCS: 96375; 96374; 99283; J2550; J1170

== ENCOUNTER 2022-06-20 18:38 | Emergency (ER) | payer OTHER ==
--- OUTSIDE RECORDS SUMMARY | 2022-06-20 18:42 | XMS REPORT | Clinical Summary ---
:1960 Author Organization [facility] Address [address] [place] [address] Care Team Providers Name Role Phone Madison Manning Unavailable Allergies Not on File Medications Not on file Active Problems Not on file Encounters Date Type Specialty Care Team Description 05/25/2022 Ancillary Procedure Radiology Cancer 03/30/2022 Ancillary Procedure Radiology Cancer 03/30/2022 Ancillary Procedure Radiology Cancer 03/25/2022 Lab Requisition Liban Javed MD Divatia, Mukul K, MD after 06/20/2021 Social History Tobacco Use Types Packs/Day Years [...] Cancer Resul ts for this PELVIS PM VESSEL LINER procedure are i n the results section. OSI CHEST Routine 08/22/2021 12:46 Cancer Results for this PM CDT procedure are i n the results section. PATHOLOGY OUTSIDE Routine 08/21/2021 Results fo r this INTERPRETATION procedure are in the results section. OSI ABDOMEN Routine 08/19/2021 12:47 Cancer Results for this PM CDT procedure are i n the results section. after 06/20/[address] Abdomen and Pelvis (12/29/2021 11:35 PM VESSEL LINER) Specimen (Source) Anatomical Location Collection Method / [...] Accession#, Stained, Block, Unstained Collected Received 03/26/2022 [facility] Received A. [id number], 38 SS, 0 BLOCKS, 0 USS 08/21/2021 03/25/2022 6:58 PM CDT Addendum 1 Outside ([id number], 38 SS, 0 BLOCKS, 0 USS, collected on 08/21/2021): 03/26/2022 [facility] Addendum 6:58 PM electronic ally C. 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 No malignancy identified. MD Paty on 03/26/2022 at 6:58 PM Diagnosis Outside ([id number], 38 SS, 0 BLOCKS, 0 USS, collected on 08/21/2021): 03/26/2022 [facility] Electronically 6:58 PM signed by [...] and CD163. CD34 highlights vascular channels. 03/26/2022 [facility] 6:58 PM The overall findings [...] amyloid deposition. Disclaimer "Some tests reported 03/26/2022 [facility] here may have been 6:58 PM developed and CDT performance characteristics determined by [facility] Pathology and Laboratory Medicine. These tests have not been specifically cleared or approved by the U.S. Food and Drug Administration. If applicable, controls were reviewed and showed appropriate reactivity." Specimen (Source) Anatomical Collection Method Collection Time Re ceived Time Location / / Volume Laterality Tissue 08/21/2021 03/25/2022 9:01 AM CDT eJd Reardon MD LAB PATHOLOGY ORDERABLES Performing Organization Address City/State/ZIP Code Phon e Number [facility] [place] [address] [address] [place] OSI Abdomen (08/19/2021 12:47 PM CDT) Specimen (Source) Anatomical Location Collection Method / Collectio n Time Received Time / Laterality Volume Narrative Systemgenerated, Documentation - 022 12:47 PM CDT Study acquired at another institution. For comparison only. No Aaln originated interpretation requested or a vailable. Candida Fajardo MD IMG OUTSIDE IMAGE ORDERABLES after 06/20/2021 Insurance Payer Benefit Plan / Subscriber ID Effective Dates Phone Addre ss Type Group [employer] MANAGED A[employer] O [id number] 2014-Present [id number] [facility] [place] [address] Care Teams Dragger Out Relationship Specialty Start Date End Date Madison Manning PCP - External Follow Up A 03/19/22
--- OUTSIDE RECORDS SUMMARY | 2022-06-20 18:43 | XMS REPORT | Continuity of Care Document ---
:1960 Author Organization [facility] t Address [address] [place] [address] [address]. [address] [place] [address] Care Team Providers Name Role Phone Carey Koo MD Primary Care Physician SYSTEM, PROVIDER NOT IN Attending Clinician Unavailable LISSY WILSON Attending Clinician Unavailable MARIAN CUTLER Attending Clinician Unavailable BROWN JIMENEZ Attending Clinician Unavailable Liban Javed MD Attending Clinician Jed Reardon MD Attending Clinician Unavailable GC_TNC_Lovitt_S Attending Clinician Unavailable YANELY SEARS Attending Clinician Unavailable Trudy Vernon RN Attending Clinician Unavailable SLY FINLEY III Attending Clinician Unavailable King COTY MD, [...] Pob I Attending Clinician Unavailable Doctor Unassigned, [place] Attending Clinician Unavailable BROWN DUNLAP Attending Clinician Unavailable KORY CERVANTES Attending Clinician Unavailable NEHEMIAS SANDOVAL Attending Clinician Unavailable CAREY KOO M.D. Attending Clinician Unavailable GC_TNC_Lovitt_S Admitting Clinician Unavailable YANELY SEARS Admitting Clinician Unavailable EDOUARD AVILA Admitting Clinician Unavailable CANDIDA OLIVAREZ Admitting Clinician Unavailable MD CANDIDA OLIVAREZ Admitting Clinician Unavailable CHU MENA Admitting Clinician Unavailable EDOUARD FREY Admitting Clinician Unavailable KROY CERVANTES Admitting Clinician Unavailable Payers Payer Name Policy Type Policy Number Effective Date Expiration Date S loreta AETNA CHOICE POS [id number] 2013 00:00:00 II AETNA (POS) [id number] 2013 00:00:00 Problems Condition Condition Condition Status Onset Resolution Last Treating Co mments Source Name Details Category Date Date Treatment Clinician Date Cervical Cervical Problem Active [facility] dysphagia dysphagia Phys ici ans Heartburn Heartburn Problem Active [facility] Physici ans Gastric Gastric Problem Active [facility] regurgitat regurgitat Ph ysici ion ion ans Weight Weight Problem Active [facility] loss, loss, Physici unintentio unintentio an s nal nal No known No known Disease Unive rs active active ity of problems problems [facility] Belching Belching Problem Active [facility] Physici ans Esophageal Esophageal Problem Active U T dysmotilit dysmotilit Ph ysici y y ans Hiatal Hiatal Problem Active [facility] hernia hernia Physici ans Achalasia Achalasia Problem Active [facility] Physici ans Allergies, Adverse Reactions, Alerts Allergy [...] s Branch AMOXICIL DRUG Active High Unknown-Cmnt Un sugey MARIA EUGENIA INGREDI - ity of 00:00: [place] 00 [facility] Branch SULFAMET DRUG Active High Other-Cmnt Univ ers HOXAZOLE 1-13 ity of -TRIMETH 00:00: [place] OPRIM 00 Medical Branch MORPHINE DRUG Active High N/V Univers INGREDI 1-13 ity of 00:00: [place] 00 [facility] Branch Sulfamet Propensi Active 2020-11 UT hoxazole ty to 0 Health -Trimeth adverse 00:00: oprim reaction 00 s Amoxicil Allergy Active Hives UT maria eugenia to 08-08 Health substanc 00:00: e 00 Morphine Allergy Active Other UT to 08-08 Health substanc 00:00: e 00 amoxicil drug Active UT maria eugenia allergy Physici ans morphine drug Active [facility] allergy Physici ans Social History Social Habit Start Date Stop Date Quantity Comments Source History [facility] Health Alcohol Std Drinks History [facility] Health Alcohol Binge History [facility] Health Alcohol Comment Exposure to Not sure University SARS-CoV-2 [place] [facility] (event) Branch Alcohol intake 2021-09-10 2021-09-10 Lifetime [facility] 00:00:00 00:00:00 non-drinker (finding) Tobacco use and 2021-09-04 2021-09-04 Smokeless tobacco [facility] exposure 00:00:00 00:00:00 non-user History SDOH 2021-09-04 2021-09-04 1 [facility] Alcohol Frequency 00:00:00 00:00:00 Sex [birth year] Universit y of 00:00:00 00:00:00 [place] [facility] Smoking Status Start Date Stop Date Source Unknown if ever smoked Universit y of [facility] Never smoked tobacco [facility] Medications Ordered Filled Start Stop Current Ordering Indication Dosage Frequency Signature Comments Components Source Medication Medication Date Date Medication? Clinician (SIG) Name Name bromphenira Yes [id number] 5mL Take 5 mL Univers mine-pseudo 1-13 by mouth 4 it y of ephedrine-D 00:00: (four) Aleksandra Simental (BROMFED 00 times Medical DM) 2-30-10 daily as Bran ch mg/5 mL needed for syrup Congestion /Allergies . benzonatate Yes [id number] 100mg Take 1 Univers 100 mg 1-13 capsule by ity of capsule 00:00: mouth [place] 00 every 8 Medical (eight) Branch hours as needed for Cough. bromphenira Yes [id number] 5mL Take 5 mL Univers mine-pseudo 1-13 by mouth 4 it y of ephedrine-D 00:00: (four) Aleksandra Simental (BROMFED 00 times Medical DM) 2-30-10 daily as Bran ch mg/5 mL needed for syrup Congestion /Allergies . benzonatate Yes [id number] 100mg Take 1 Univers 100 mg 1-13 capsule by ity of capsule 00:00: mouth [place] 00 every 8 Medical (eight) Branch hours as needed for Cough. No known 2020-11 No No known UT [...] Name Observation Time Observation Value Comments Source Systolic blood 2021-11-27 157 mm[Hg] [facility] pressure 22:07:00 [facility] Diastolic blood 2021-11-27 92 mm[Hg] University o f pressure :07:00 [facility] Heart rate 2021-11-27 117 /min [facility] :07:00 [facility] Body temperature 2021-11-27 39.67 Claudine last dose of [facility] :07: Motrin this AM [facility] Respiratory rate 2021-11-27 16 /min [facility] :07:00 [facility] Body height 2021-11-27 190.5 cm [facility] :07:00 [facility] Body weight 2021-11-27 94.518 kg [facility] :07:00 [facility] BMI 2021-11-27 26.05 kg/m2 [facility] 22:07:00 [place] [facility] Oxygen saturation 2021-11-27 97 /min [facility] Arterial blood 22:07:00 [facility] by Pulse oximetry Branch Systolic blood 2021-09-04 147 mm[Hg] [facility] pressure 19:12:00 Diastolic blood 2021-09-04 72 mm[Hg] [facility] pressure 19:12:00 Heart rate 2021-09-04 94 /min [facility] 19:12:00 Body temperature 2021-09-04 36.5 Claudine [facility] 19:12:00 Body height 2021-09-04 182.9 cm [facility] 19:12:00 Body weight 2021-09-04 92.987 kg [facility] 19:12:00 BMI 2021-09-04 27.80 kg/m2 [facility] 19:12:00 BP Systolic 2019-11-01 144 mm[Hg] Location: RUE; [facility] 14:32:00 Position: Sitting BP Diastolic 2019-11-01 86 mm[Hg] Location: RUE; [facility] 14:32:00 Position: Sitting Height 2019-11-01 75 [in_us] [facility] 14:32:00 Weight 2019-11-01 194.25 [lb_av] [facility] 14:32:00 Body Mass Index 2019-11-01 24.28 kg/m2 [facility] Calculated 14:32:00 Temperature 2019-11-01 99.2 [degF] Method: Oral [facility] 14:32:00 Heart Rate 2019-11-01 103 /min [facility] 14:32:00 Respiration Rate 2019-11-01 20 /min [facility] 14:32:00 O2 SAT 2019-11-01 98 % Source: [facility] 14:32:00 BP Systolic 2019-10-18 154 mm[Hg] Location: RUE; [facility] 10:58:00 Position: Sitting BP Diastolic 2019-10-18 93 mm[Hg] Location: RUE; [facility] 10:58:00 Position: Sitting Height 2019-10-18 75 [...] ABDOMEN AND PELVIS 2021-12-30 05:35:00 Candida Olivarez [facility] Center POCT MOLECULAR FLU 2021-11-27 22:21:00 Ian [facility] POCT MOLECULAR STREP 2021-11-27 22:18:00 [facility] CHEST 2021-08-22 17:46:00 Candida Olivarez [facility] PATHOLOGY OUTSIDE 2021-08-21 00:00:00 Jed Reardon [facility] INTERPRETATION [facility] OSI ABDOMEN 2021-08-19 17:47:00 Candida Olivarez [facility] History of Exploratory [facility] ians [...] Clinicians Facility Department ID 2022-04-01 Outpatient SYSTEM, [facility] [id number] 10:41:31 PROVIDER Barney o n 2022-02-06 Outpatient [facility] [id number] [place] 11:18:23 [id number] [facility] 2021-08-21 Outpatient STEVE, [facility] [id number] [place] 13:19:11 LISSY [facility] 2021-08-19 Outpatient ANGEL RIGGS, [facility] [id number] [place] 12:52:48 [facility] 2022-06-17 2022-06-17 Outpatient BARBARA, [facility] [id number] [place] 00:00:00 00:00:00 BROWN [address] 2022-06-16 2022-06-16 Outpatient EDUARDORIA, [facility] [id number] [place] 00:00:00 00:00:00 BROWN [address] 2022-06-16 2022-06-16 Outpatient EDUARDORIA, [facility] [id number] [place] 00:00:00 00:00:00 BROWN [address] 2022-06-16 2022-06-16 Outpatient EDUARDORIA, [facility] [id number] [place] 00:00:00 00:00:00 BROWN [address] 2022-05-25 2022-05-25 Ancillary 1.2.840.1 [id number] Univers 23:30:00 23:35:00 Procedure 24061.1.1 it y of 3.412.2.7 [place] .3.441232 MD Adam [facility] 2022-05-25 2022-05-25 Ancillary EL 1.2.840.1 [id number] Univers 23:30:00 23:35:00 Procedure 12144.1.1 it y of 3.412.2.7 [place] .3.451307 MD Adam [facility] 2022-03-30 2022-03-30 Ancillary 1.2.840.1 [id number] Univers 20:05:00 20:10:00 Procedure 63133.1.1 it y of 3.412.2.7 [place] .3.961431 MD Adam [facility] 2022-03-30 2022-03-30 Ancillary EL 1.2.840.1 [id number] Univers 20:05:00 20:10:00 Procedure 74935.1.1 it y of 3.412.2.7 [place] .3.116088 MD Adam [facility] 2022-03-30 2022-03-30 Ancillary EL 1.2.840.1 [id number] [id number] Univers 20:00:00 20:05:00 Procedure 57300.1.1 it y of 3.412.2.7 [place] .3.622443 MD Adam [facility] 2022-03-30 2022-03-30 Ancillary 1.2.840.1 [id number] Univers 20:00:00 20:05:00 Procedure 87257.1.1 it y of 3.412.2.7 [place] .3Nicole463127 .8 [facility] 2022-03-25 2022-03-25 Lab Liban Javed 1.2.840.1 [id number] Univers 00:00:00 00:00:00 [place] [address].1.1 ity of n 3.412.2.7 [place] .3Nicole077936 MD Rivera8 [facility] 2022-03-25 2022-03-25 Lab Liban Javed 1.2.840.1 [id number] Univers 00:00:00 00:00:00 [place]quisit[place] Caleb [place] K 26766.1.1 ity of n 3.412.2.7 [place] .3Nicole019311 .8 [facility] 2022-01-01 2022-01-01 Outpatient GC_TNC_Lovi PRIV PRIV [id number] [facility] 06:01:00 06:01:00 tt_S [id number] Medica l 2021-12-23 2021-12-23 Outpatient [facility] [id number] [place] 00:00:00 00:00:[address] 2021-11-29 2021-11-29 Telephone Trudy Vernon 1.2.840.114 [id number] Univers 00:00:00 00:00:00 LÓPEZ 350.1.13.10 it y of [facility] 4.2.7.2.686 [place] [phone] [place] [id number] Branch 2021-11-27 2021-11-27 Outpatient Antonino FINLEY III [facility] [id number] Univers 16:00:00 16:56:53 SLY may of [facility] 2021-11-27 2021-11-27 Sly Mcmanus [facility] 1.2.840.114 [id number] Univers 16:00:00 16:20:00 [facility] 350.1.13.10 [facility] 4.2.7.2.686 [place] as ILA?BLEA [phone] Ri maury [address] MEDICAL OFFICE BUILDING 2021-11-10 2021-11-10 Outpatient [facility] [id number] [place] 00:00:00 00:00:[address] 2021-11-05 2021-11-05 Outpatient [facility] [id number] [place] 00:00:00 00:00:00 514 Method i 2021-11-03 2021-11-03 [facility] [id number] [place] 00:00:00 00:00:00 YANELY 382 Method i 2021-10-29 2021-10-29 [facility] [id number] [place] 00:00:00 00:00:00 YANELY 804 Method i 2021-10-01 2021-10-01 [facility] [id number] [place] 00:00:00 00:00:00 YANELY 521 Method i 2021-09-25 2021-09-25 Telephonic ESTEFANIA Wilson 1.2.840.114 1 [id number] [place] 11:04:05 12:53:20 Encounter Lissy CARDENAS 350.1.13.58 Health 9.2.7.2.686 [id number] 3 2021-09-04 2021-09-04 Office Steve ESTEFANIA GO 1.2.497.238 [id number] [place] 14:04:50 14:42:37 Visit Lissy CARDENAS 350.1.13.58 [facility] 9.2.7.2.686 [id number] 2021-08-19 2021-08-29 Inpatient ANN, [facility] [id number] [place] 00:00:00 00:00:00 JAMUNA 455 Method i 2021 2021 [facility] [id number] [place] 00:00:00 00:00:00 YANELY 113 Method i 2021-07-01 2021-07-01 [facility] [id number] [place] 00:00:00 00:00:00 YANELY 873 Method i 2021-03-11 2021-03-11 Outpatient THEKDI, [facility] [id number] [place] 00:00:00 00:00:00 CHU 763 Method i 2021-02-26 2021-02-26 Outpatient THEKDI, [facility] [id number] [place] 00:00:00 00:00:00 CUH 635 Method i 2021-02-24 2021-02-24 Outpatient THEKDI, [facility] [id number] [place] 00:00:00 00:00:00 CHU 779 Method i 2021-01-08 2021-01-08 Outpatient THEKDI, [facility] [id number] [place] 00:00:00 00:00:00 CHU 704 Method i 2020-11-28 2020-11-28 Outpatient THEKDI, [facility] [id number] [place] 00:00:00 00:00:00 CHU 101 Method i 2020-11-20 2020-11-20 Outpatient PETAK, [facility] [id number] [place] 00:00:00 00:00:00 JACQUI 050 Method i 2020-11-11 2020-11-11 Outpatient THESYDNII, [facility] [id number] [place] 00:00:00 00:00:00 CHU 428 Method i 2020-10-30 2020-10-30 Outpatient THESYDNII, [facility] [id number] [place] 00:00:00 00:00:00 CHU 447 Method i 2020-10-30 2020-10-30 Outpatient MITCHELL, [facility] [id number] [place] 00:00:00 00:00:00 KATEY 260 Method i 2020-10-30 2020-10-30 Outpatient MITCHELL, [facility] [id number] [place] 00:00:00 00:00:00 KATEY 261 Method i 2020-10-23 2020-10-23 Telephone Pcp, [facility] [id number] [id number] 00:00:00 00:00:00 Patient Health 350.1.13.10 Does Not [place] 4.2.7.2.686 Have A Professio [id number] nal 044 Office Building One 2020-10-05 2020-10-05 Laboratory Lab, Adc [facility] 1.2.840.114 [id number] 15:32:07 15:52:07 Only Fam Pob I Health 350.1.13.10 [place] 4.2.7.2.686 Profjerome [id number] nal 044 Office Building One 2020-10-05 2020-10-05 Letter Doctor TALIB 1.2.840.114 [id number] 00:00:00 00:00:00 (Out) Unassigned, LÓPEZ 350.1.13.10 [place] [facility] 4.2.7.2.686 [id number] 2020-10-03 2020-10-03 Outpatient MITCHELL, [facility] [id number] [place] 00:00:00 00:00:00 KATEY [address] 2020-09-26 2020-09-26 Outpatient [facility] [id number] [place] 00:00:00 00:00:[address] 2020-09-23 2020-09-23 Outpatient DUNLAP, [facility] [id number] [place] 00:00:00 00:00:00 BROWN [address] 2020-09-23 2020-09-23 Outpatient DUNLAP, [facility] [id number] [place] 00:00:00 00:00:00 BROWN [address] 2020-09-23 2020-09-23 Outpatient DUNLAP, [facility] [id number] [place] 00:00:00 00:00:00 BROWN [address] 2020-09-23 2020-09-23 Outpatient DUNLAP, [facility] [id number] [place] 00:00:00 00:00:00 BROWN [address] 2020-09-23 2020-09-23 Outpatient DUNLAP, [facility] [id number] [place] 00:00:00 00:00:00 BROWN [address] 2020-09-23 2020-09-23 Outpatient DUNLAP, [facility] [id number] [place] 00:00:00 00:00:00 BROWN [address] 2020-07-23 2020-07-23 Outpatient THEKDI, [facility] [id number] [place] 00:00:00 00:00:00 CHU [address] 2020-07-01 2020-07-01 Outpatient ERGUN, [facility] [id number] [place] 00:00:00 00:00:00 GULCHIN 383 Method i 2020-05-01 2020-05-01 Outpatient LORI, [facility] [id number] [place] 00:00:00 00:00:00 NEHEMIAS 750 Method i 2020-05-01 2020-05-01 Outpatient LORI, [facility] [id number] [place] 00:00:00 00:00:00 NEHEMIAS 746 Method i 2020-03-19 2020-03-19 Outpatient ERGUN, [facility] 097 [id number] [place] 00:00:00 00:00:00 GULCHIN 523 Method i 2020-02-14 2020-02-14 Outpatient ERGUN, [facility] [id number] [place] 00:00:00 00:00:00 GULCHIN 193 Method i 2020-01-31 2020-01-31 Outpatient ERGUN, [facility] 030 [id number] [place] 00:00:00 00:00:00 GULCHIN 187 Method i 2020-01-02 2020-01-02 Outpatient ERGUN, [facility] [id number] [place] 00:00:00 00:00:00 GULCHIN 723 Method i 2020-01-02 2020-01-02 Outpatient ERGUN, [facility] [id number] [place] 00:00:00 00:00:00 GULCHIN 357 Method i 2020-01-02 2020-01-02 Outpatient ERGUN, [facility] [id number] [place] 00:00:00 00:00:00 GULCHIN 186 Method i 2020-01-02 2020-01-02 Outpatient ERGUN, [facility] [id number] [place] 00:00:00 00:00:00 GULCHIN 131 Method i 2020-01-01 2020-01-01 Outpatient ERGUN, [facility] [id number] [place] 00:00:00 00:00:00 GULCHIN 825 Method i 2020-01-01 2020-01-01 Outpatient ERGUN, [facility] [id number] [place] 00:00:00 00:00:00 GULCHIN 826 Method i 2019-11-01 2019-11-01 Appointmen NAYAN [facility] Thor[facility] [id number] [place] 13:30:00 13:30:00 t; CAREY KOO Surgery - Physici FARZANEH, M.D. [facility] shai Hinojosa 2019-10-18 2019-10-18 AppointESTEFANIA Muñoz Thoracic [id number] [place] 11:00:00 11:00:00 t; CAREY KOO Surgery - Physici FARZANEH, M.D. [facility] shai Hinojosa 2019-10-18 2019-10-18 Outpatient MHSE MHSE [id number] 09:08:00 09:08:00 [facility] Results Test Description Test Time Test Comments Results Result Comments Source Pathology Outside Interpretation 2022-03-26 23:58:33 Test Item Value Reference Range Interpretation Comme nts Materials e9lmhOWgOHVfzYCgIrAuMVRoSIMfz0pxTHFvjFQaIyRfPoZyFqWjLjrcdAEkBVFlRsNuh1bdw886xJRt j5wvDPPxJoX4kOOoUQChrKGqH071FEXpPGxvh3ept9FyODTrqFOyr5G2LAJBchionBw8qWpvV68qx2Z7 OxnpU7szXEIoMTRgT1EhOB3iRLEnWxr0WOY9KAA7ZAB Received bIDIoT0LoYV1hDPBmvVDbSZl6e1hzdYuvLEJpWIN7o2eeBZjddrFyLR4fli0vpEj5p6oxekBlLTYaALM ycBOAHOWrE3EpkLmgLw9syFk5mFfkLtefZJL7Tog1AB4cjy25jgd9uHibCDRudsrkAvR5AWqoNFJpfpt yMBk2BYypFWJcuWwnCFadMPAwyvikKGowJJYxmAP8SS (test code AvmMPbK1SbZBFmBZhzCEWigqm4ArBhZb5xeGIymIphEAvxo6loc7ekpSVoArh6RLZrXmBrGgkzPTfom4 Eto4gmKPDzla5tPPW9mBMejAipx8R3nLMmOMMsnEVvqeTvRXMntg23oJTanDWkfRHdyf4tosSniODwmI QgYFC5yQBuvhAhVMCqwDZjLSMmOZ6kvOZvFROkrE8yx = 9973) thlMUIzWgRksamtACPgdSqpzyAmYb5xrVwtRIO6AWqgE9wqrL3lRbM4ZSgzY7zklU7fARg9VYzhvDE2Q LOewD3pSC0ebepwy0ukHkHaRF4aewwtu3suBpQtHC1frrn0t1ooFWJ9EDirRLXbPrW8chH6FBGniCKlS NXjhGyoIDujp073GXA5HbImTCTda5FfN5SpfAqwZ28r wMcpU37mWRJgnCgbnR6zlCmxhA0dIkGzEgCgZZt8wz73JHm4fqqnsWjwAIm5zvBoELXpDGV4YCMwcPHs MOFqR6r4caJlYKPzBOG4SSTvrQVmHEWvQ4n0lnGjPZB5TPs9xyJuFPVahNDhsBElRGBxIlTmnYOzQZFg WpOhXMZdwOKasVJaaAYrmY0caBtwWGAadOAdbF2lIPW 5FNAzvjtwAmSduJNaELRakGTugi65CIQhaxKndSMooQbihPRrUJJ3MJHjVYJwZLWyJGC8YMXtUgZxskM uWBxjvXKbWUJnUTDrVCEoYSTgQUR9BBRjOlHorzVeVFimqJMjSXVjAPPdXFZtSGJqVAU7ZKErBsXqoqH iFEsfcLWyAWUjBJSeUUYoDVEjOVE2XGIxWqCpteYxPG mbjHExTWXeAIzkeUCxVPC8C5twnEJmAXTbKSbbxNWjREJdB3zwjCFsRKozKSXpjXPlNwqyJDRqrGZqZb XdP9iiSPPeIlHkP6XgmDl5KFCcMUDfrbTliKXssGxtbOAgDST7YHPjBOIoSCUeRYT9QYYlUiGmlgOyUV phfFHuUMWbJTFkLQCgFHUzDLP7VNRnLlQjhgJiTRsrv IKdDTGaHSQkOXSqNJEnRFN2ICFqWjBegeEbMDwtdAHfOHDfWYMfACLgUNEvJDN0VXNxGhVoxeHtEJgkp ZWuGCAnWHaeuIFlTBF5G7spwFBhXWLkLFyoaGWbRFNuJ4lqpCVdSTmnVQJdaCBeDgjhSYZctUOsBxVzM 7dzLDLtEbLyC2DidLc3FuJxSVRaadFeoXNmtJfrpWPt ATM4EPWoJVQiXYGwHSH0QSLjHlIejoVgILbavEKgANHdKQJjZZScADGpFEG8QIJbVePagdSeBLfshTOk UMHxDREmJMOgSTAkPKR8WSCvPeHctiRdVSrswLFvGJCdBILfQFUrLTQfINX5GZQkGuToqpHdYOovpYWn TDGsEHeqhLBfBAD7Z6syoTSnAVDoSNactSTwUAOmI8o cfUWaWNruZROjxYRsImsmPWMqqHRfByUbG8xrPSPlTfOrK6EerYq4PdQmMLIwwgKmwM02Qpybe8IkEJE hKZK3FXcbEReecDpazYEexhgcTVooxwPqDNyhdnopQUNgIZndC4emGzCeZQGzyVrrNOkin9BuAIUiQUE dHujdckVlAUQjIWRaLHSfyV3bSztpY6IroL8mUVtoGu yeZ4xtFDRjt1IxqB5kTFxcoQVzvzbaIFherwExRAmbkvrcFITpEIpvY5rgKkZlDVNptTfnBKofd8YdYK LtAICfZcztwwJpBSv1jjHxIASqiRxvcPYpIOgkojOekCozc2BqkoYreEmyMWNeWUl7pmEihbxmlWy9fT PyqGpzOPGrqVfdgS6mIoYqHfEvHReqnYCtbkpsBMhxq oXtVCrweaipPPTiDPrqM8tnDgZcZJFnrIinHIvul3QwVPVbRZUfShlnaqVfXPVvO65kcGMvjMHbBUCeG HwgUYGmFTOrNhXkjJOsSdFgVxDacZysmCtvVPqgJgFhARCgYPxzG4rgSbVtV1TkLWWkEbVgaXVrD9nbK 6BknEdzVHAySCpljTAqDCGnlUTrEJG3iULfkbQgrSLa nPNkKATfFRieIQG0uWWhxuadvOYhgtcgLPbexyF2SCPkWVzoLNSpYTLhAuRzkSKwWeYjOqLviAdhdAeq JNatLaQxKAZeQTlxP6jpFdIoI6NtLZBeWxKxKbJNGTCinDTqAMttyVQjtyoyFCjpjqEtULnvoqtxTBSs INlnC4tfXfLeLUQapVuiRGwqj4GmPMZkFGNhSijlnbY oBEu6yfYyYLAxgEbihH30Gjhybu78VYSwe5bkDXLxJ6JooNYfGEVpsAHrIHkoPBysjTTuORWwKzhuWMN ozBVvPLNlZNpaeVKqMZErIrKdQWHctOKrDLVqKNFpiPQaQUW7J5k2whWeWIHbMAi9cpPuJEKnQvQhvOO hHAV0VGf2EdpjabE3wKEaL6s6MqvjrqPvARxfkFKaxy 29IJFxquEndJYilDlblYLeCLG5VKIqZIWuOKKjDZC2YOYrHiCtjsRaWMtssPWbYPDzMNVbTPZnCPZsBL P0NPWtPaKabyToLXxweSWjLZMkIBWhFSHcFWHwHBU6BUBdHhZnqdKqXJohaGLgDIMvNRErNPApRYOwXD E8UHPnBzDlpeMbBAbeyUBcSPMkAOksuLHhPSJ7F7tiv KNzGGJnWSsbzWGiMMAvN9qhgCClLHvcCRFvvKZjMjhjZFDuqWDqCpWhD0qjEZZbQrKmG2SflQs5VMTuD MLncqKehDPpgKovbIGePQK5OVJjYURuUJKmUNE1GXRoGwAqneBhFDdvpWXySDAwNLEyJPZhAOYiPUK1V WGiNdLysoDlECxskYShLZEvFAIuUZQpDDLeBLP2LDMq UiXyjxQsCQhhiSHuVYIxRWNnUCGtRIJmBGI0SFNsSpKhgaEhORuasHCcZPQjRMdwaTQjZSV3M8dsjDVp BXEeDIzimVWlQUMqT1ygzIXmBOygVNRkpWDfAckvBBUaxOBaCyOjE4wxJPQfNeLmD2YmnJm3VjMiSHJp diHfeXResEnxsPKbODU7XHHvMELjMOJqWNU8KJIyPsN dxaDtDHynwOCfZXOqZENhWPVeHBLjGWH1UBZhEoSsqeFjHUkdbAMjRFNdMOSsOCHsHTIrJWH2ATTqBoS mnaJpPEvocXJaJJQcVAKeMONgHOBeRUP6XEQgSoDoroJhZVdioIAgLDOdCAmsuXQxOFK0W8uhrJIvAAG kCRhquHMgDWNlA5fdkFUuTFnkHUTnfJJpYeihYRXgkJ MjVtQhL2lfARCnJdNjO2IrrQq3RfScHANoomHhgS54Vgipk7QzECNaWNR6RBcgHHrpuOdbtWZsaafeTR rgfrI9LYPcNIcxCUFgXNEnBbZcgJMcSzMtBaGebYfedIvhWEuiNhCgMMVxQDgfB4mjQuViW9LfJZFsGo HmHO1rK3JuAvWgUqe1OYmtNWJ6JRPMYXTtAIURT6KMX pgcURTML4BzeDvquW5zPpYqJgUrASowAO4rSVPpS9sccVPbBAMeKGPjA1zkNmZfqF0rrYizFZcsIgPeZ wPqQSbukNBtdReiSJpnMVBuuwVvrS59Peyho3LbQPTbAXF0PLqlXFwhaXynmVCxontkXBvjhlZ9YIPmN WluXGYxXGZzMjBcbGFuZzEwMzNcaGljaFxmMVxkYmNo TFCwQCctY1vsIuJrO6CfPEIvEoOjZXEqWc1kHCBoLXZpGFsiYZUeXKDdQmMdqNOgQtAyYmGdpTznuIvp WDdaUdJgVAErPDegT3njWwJpI1UfLEPjWaHfmVMhZ4voR4BkdTchGUBcEHberNZfAKCylVXjILA4nDPn yzMcoLkzfFxivS6aBkRbPvFbUYgdfWHtbgfxKQopjeH tBTfogybhDQIhDRmgV1goAvXqDXYkyCpkMVxwc7AtNIIvXYRzBmpfniDgQUQbLMLmBwQvBdahiLMmijb pNBsfuhEjBErheebiHHVpGVgeC3kuHnRcUOTkmAfeEBxcz7RdTCZeVDRkHihvgsOuLRs9maFsRDIehHt djM81Gohjkz27NALsspGsp6ZwECZwUXO4ZDrmYKfstU mzmAAomrfbXOaqksR3DGVcMPauTKYfOUDqDuJsqVZsEqOfXhJunJdnmHymFMezMvVjZJHoNWjgN8omYu FcZnMyMFxwYXJ9 Addendum 1 j1dtdKKrJPEimKV2WmSsSGEis0cra8AqrZJobJMsRDjnsVGsagXgzu12zYK5eV68AR5gJOMvFpP4NETo gtU0Iuw7BGBvCXErjWHiZ094f0itl5ggmdYweJF4JWYuHEXwT5LzJY1tTSXirJFbA06ixFOcWAP2CUTj FKRjzQMxAZDgRPA1LXMknYDxT8giPSEuWP7hiqjoNAu (test code tSBexRYSisMB2QAIboUHzC4VvGVRiRSljCUKcwmc7JqXfAa9pwZGydOahSJanNEVaSTUrOZrqIRGsVkE cN1TlAJ17bXYqJPHnTKYOWRQyTII2WHn8MHLvDUOHKdehFFAWRK1AE9YyBTQfPDPPSZMfi1hyULZ6PAA vm87iWTCrXi4jWNOjYNuyeERxEAMaDMbdCCLpoBu6Lx = 35) JqmUziCcPpUJApLHSMsGFyebtckq9ifCcimbvlj5CyC0KnUzkhpXD9YDvwYowmKMFfdQnfZVIhYZXbZE gzTMnobG8oCPDdDJNmpZUyEQEouIRwDQKik40fsvbjWD8sDYAmkzFsRL5iUFAhQOMugoFVasUkHYhoE5 3hshX3BFuwBO11hVRjNVIzQVDrlbdlKBPzhAEfHOmpI XJ9 Diagnosis r1dsyUWyZUYbxHN0VtEtAVJdx0yvb0JuxWOweZVdXOkgdNHroeToys74zNX6yH56VC3dOPAnRhA5UQBv fxR9Ihv0QDMaHHGheYHxG229y7yud2jxdbZufPE4IBJqCYLhH9YaTH7vRCEqaPMtB55waMKgXYS5EIOr OXWztJYsLQFxATB9ZIUkqREpQ2cgHRMaTL4fnrqoOWu (test code qBIhdGFVwpQZ3AXTakLCmM4IbLGJdMTxxRBQkxoe2IuQtDf8tzEEcePcqBYtiSVNoLBRiXDeaJQSsPaQ gD1UpHX15hAHmWWHoXIUUYUYsVFI3IFk3VIHnGABUBlqrRKAIQQ9SY6CzSVVzOMHBGCGad2ppWYW7CXT kn80pUCFsKf1rFKJzOTjqlEBjFAEvITqgSNUjsDa7Rm = 32) SjzWmxQkGbXIUnYFbdnuLpdH9oo3p8pECeHGIdluEjsmauZU9jx8FpVBRpF07mykTklDBrJUAlH6Gsy6 83YBOjgvykfQXgIrCnUowySnMsMYnnszObKiTcOcLprLsvDBE0jx2kRRemZttjli0syLPazShutAsheL wkdRfbueNuzoPjbyVkJ3MtASWvgMNfmQfcXZVbpUfcy fKnfqCjhTKgqjzthPMiXQ08LRVdMvVeCNRzMX2lPUCmi7BmXSSkhi5gER9nBXSgZWSqn98fRW59OKMnY MljCKSoWRWfm8Rya4d9KKYqPqUvA22sDMUldyZkwREetLJyBENpiE6lyMecqYJiZP0rJGJmhW8tvSMth 6QlWPXbjhE9yX9ipdHntoDfTS74AQdxGsUnBfbcIHXr NqRiDNR4fT8zDK7atmyixcUpGQEeXTCtc4DgwWOeo8GvDFPfjcFKdrQtfKUyn4MptVZpr53pvIynMs31 JSgyfWCor4JsZqmuRAWouPOrYTodNaShZVPsWAszzA34GiScBa6hNVDjIS36YSB1OPSghU5dd1g9RNFi cyl3OOAbNKpiuSlpiDlrOKCfsWNenTYxWOPnj8fpTtQ aOXGla87dZUdxFNXoC16tqSBvbAIbEgxlyFDqQKOckpGCCuBGtNBumrsjlm0qlTijzymbm5NoG4DbOra acII5JBzxEobqASCffLQdVKVdFSNlUAZnJ73mVELipTDjKbipN6hpyLD8dS5ng6z7ZYxuuPPfw0Fmx0B kNWEkYXRiYIEjAJXyiU7ixZwbXWKadqpoBCBzcVDvHO BhcmRccGFyfQ== Comment j5pifDWyHZIoeYW0WkQaCKPft3huc1PfeHSwwCYmGZxxbJPfxmZkrl30wZC1pK24OP3cCJUzTtF4YBTq bpI4Kbb0XFPlYMDotNSyM315t8ltq2jadhFatAT3uSzdKNPaapbpBbV7NMoaXFIjmcauYHp6QGwaCKNn mCB5AFOdzBQcM2PmFBZpOR6gelj0QGF1RPlcVVYqSfT (test code 8TYFyxDPjANGdgWwhAYdyl492LOH0NdWySHSvwgJvfAiemD5rExIiCYUwKPfDaQRojZR1AYQdzF3raD5 ldDvedV7cqKJwySBbkXBitGYzxhRli2wxryR8uOM1USTcZESrhWBsnOGyCXSaoWHzwcBasNTjczEjAFy qlFv5SALvy3QlGvQ2NJ6eZYPklhfrYIwrgKBiUPQtBZ = 9835) V8fMBow8Edv77rCBAAEysjUTXVFUA4ORRaFJLkkK7wVCJfv542aHIxuPZvnDXuXUJ9pY3sLGWBDvQgAY VIAOMeNBGwWRL2j3OmXhmTGHEsPQSkakEfY4CfBrAaOMVRTUI2IGvnO0iciIwnnEWyrzGhX3DnXHCrB5 rcwi9ulVEeEFJauBBsMHLealTCeLZeb1CkweZziLYuz H0diR5xkhKyokOecVzzo5Zau5NeBUQcEI1lX45amMNbX2TwoetiTeI1EXb9BWmdIJZiPSnaCH7pgE3uH LOgXEPuZUTpaCI7IwSAzQJyLZdcSeKcWO44eAHhLRPaGQuil0VvmiIjpsIrcHWewwGjDBXsVDD7yZDfO P8lALTsezpvesEqzSWpy1KjTTY3iDFqhFJkP9RgarXw ikXcDHIdEH3gY58iomHuW1VwNJKytRLzgG4vRIK9O4ubRPOhEZ9iKVN1LOHxm0Tyds01kuTtOFuer2Br LERln88tQuUiSZ6rxwclp35jSJbysUdjqkBqB5FvmpAjV9zswcfzsj7eIDZoggduXFXvAnL8QGV7Oz1y tKVqSSUcaP75yx5ajKC1y1HyUE7xF3ChEAO1BCjiRVI kdwKQe47htdUkCBFctDMqtmIwDCPlbgQmKj2fMHWduIfduLHyHSDki2TzmGueir1uyWKiXUQptpeoCPW 9 Disclaimer w3epzPMaIXDrrHVxSsKqMONuQDYvw4szYQRfcFIvYtUaKkDyBmSmTmolcPSyHEMjVkYsb0ieo099hWZe i5rqONMvVkY7gLNyQMZboZDcV640TVRjUBngy1ead3HtZSKraLLdm1F0JYYEaakmkAt2aHvhX63xu0A5 KqhsH6flXSQlMKFkK5PdOW2hLNFuSig5CZT1OWD4NBV (test code lQSCqD0EmHS1nKKPhiLOcKYw2s5eztCiuOQFwRHI9i0tbLGxljrEuVG5hdj0lmUw0m7bggeEsJCQlJDO dnHPIKZOrK1RfeFktTt5hvOb6eNsnIwblEBW6Ozt4OV7mej79pev3pCqmCUJrzfxjUyY6WDeaHAFpgcv gARq3HBirWRLmiFC7MBRykZZiC6XcMKIdOF7rzlj9DE = 9844) V7CYmyXRBzTsU7TRGjpEXeCVSngXdtCHmvf307JDN2MkHiGP9kX5Nqj8E4aP9mbAWoLWNxsEEdFaNlDE Tnbo9qnLQdCPrzb6KkVLI0gmE9cFAxzVBgLNIzAT73Wvjtf4OkScjtOJP6CGNeuuIdh7Wea0uoNgQdtr XeX4fkD1SwSXMmPWOyFMTnVfCkwhYqu7Ykk6PboCFlw Pf1i4ntSQZiGFHgyRqiq1eyYYF7ZNRpY2E4wFKry6aqMClxSQXpuNO6tzY8EPBiuOGmL7WdyR8qHDTkI F0roqd9d3pkBGF3HDulMZHxEsG1gnM4OLUaoTZbWGRcgEavZDbsw525UOO7MlWaTCYmx7VeM6MojAofX 16ttUsoN56jPFCzePoiiP8dzUdibW4qGmPiErCkRZdq cGfaeXWilfynOLnkmpP6PIgbgmffJCApCPfiJ5ohCpPgDUBqkFviFTikt1FmWZBhVFIkVnkzgwV2LZHD x77sVPRcg7UxWSLnjW5piIGtYFntwpOgjDN5ZSkrtoRmTmAoleUoIQPdxM5kPTWkYC6gABDwzhJqgm5s ahBpMPJdXZElM2VmcftxpGbwuiOjZNYiqs8yhiXnOJZ 9BSMMZJ6QBVKgWWWwe06mSXWehTsamU6otIMhaoNrWJVap7MquR1qkUTSMHOwS9poRW1vXWfom0MmsPF jdACcaIK7AOYdq2MmRkRuzrNqeGZpdGXpB3HifKhuL0nnJJRnHYUbuvAkvUBea4LzJKNniIL1dJUdLX0 BIzBFc66pPJFsDKQWumWiKWYqsPuahRI2doL6aK5uNw RAFnIjoDSxcEPiQeofLIXbk088gq3rleZ7RQViYCYluhdyb8DmCBByDPQsgC05GLAhICQcue7kcvgusK BxdpUeD6Ykjof3xK2sFYSwMHcsAWZpGDFiYyYwoZSrCsVeHnUejUctzCooAJxuGjIeFYJvWImmZ7zmXk FcZnMyMlxwYXJ[address] [facility] Interpretation 2022-03-26 23:58:33 Test Item Value Reference Range Interpretation Comments Materials Received (test [id number] code = 9973) YBZxLXNds6pyOHXkwLRz ZzEwMzNcZnRuYmpcdWMx NBEhHsHkp8ajl670eFDp i3qqPVSgDhY7vRXbTBLq bBRiO102ZRLcMRwtc1yr k8LkJIFvyASxe9F2HEAJ vswoxHe9nJolO89ue1Q8 QqcuR0gaKGDnKHBoQ8Ay QM0fVMDsOid5ATM7CRY5 MEFmQTIeK5HfFX9rJFOa qBZsSIp6r0wnrMorRYSe IHA9d6jkKYgmjrRxXI8y na8crKt9l0gyqwOtETVg ZRNxwUHBFJNiH8ZkwVwx Xv6mjOr9pLaaYpalCSK2 Nrp1QX8gvm94wae0jWjj XWOknzhzUyI9QCxiRKTh vvqzDKv8CLquBAQwbMhn MFxtYXJncjcyMFxtYXJn sWF8SHOboJGtT3QfGBIk MQkmOEHpvdu7MwQeRo6j jJWczLkiBBefs1cia8ac tKEnExp9LDJhYiEfYrly WGxet5Iby9wfWFQimc2m BSS2gJPczSubp0C1dTRj USGaxLPbkdRnBJLbgc32 uYHsmEKzwRTpkz3nlbRr vLStkOXiOEF9zZQkcoWq DFRegULpCAJvJT3rsMQk MIXniK2dkcvvYIAqVoCm lvdvDYQvaEtqpqDtDm0r kRvpJTF6ACbyD4ccgD9h CcS7VXeaQ3lkkN1uVZg5 IGwqxFZ2JUIuuG8lYW9w invtd7cqHoSfBY6zktst c1flZbJtQK2kqdt7o8az LJI6APmwBGBdHiC0gkP8 NDBcaGVhZGVyeTcyMFxm l336DUE7LpDeCGJiu1Ao X3RpaPwrJ39ynLgzL20b LLGgaUacnS9vmGzrqM7f RuTmNyGjZGb9ot27WZa3 vmrdrTysBEt1sxZwDRIa BCB1EFLssUCiJZJyJ6s8 meEkFBBhGDT1KAGuhIBz PHDfD1d1ogJmDZL0ELa8 cnBhZGRmdDNcdHJwYWRk YjBcdHJwYWRkZmIzXHRy sXVdaFHxpXGcrL6ffAxt YOIclGRfkR8iVKS3MSIv cmgzMjBcdHJoZHJcbHRy df43XHMxzfCsnNAkpOlc oWXvJWS6ECBpFSFrEKTt XND2AMZyPpLmtcKlLZlk bGJyZHJiXGJyZHJzXGJy BKJ5POKdHgMhriJwIKyv bGJyZHJsXGJyZHJzXGJy QNF9DMBzHsUitdVmHZvt bGJyZHJyXGJyZHJzXGJy NSQ0QWVqQcJtfaFtGFcd bHBhZHQxMFxjbHBhZGZ0 N2djzLBlMFXvVIujvEBb VUTcP2mmxWBjWVygGABt cGFkZmwzXGNscGFkYjBc B9vpCSQiPlNqW3RstJd4 MDAwXGNsdmVydGFsdFxj vOGfFAJ1ZENoZHJaATVx WIC7XCKyLtZfdcDrBPke bGJyZHJiXGJyZHJzXGJy OBC2UDAwHkRqblByAHxb bGJyZHJsXGJyZHJzXGJy CTL1CTRjYaVsnvCgNExp bGJyZHJyXGJyZHJzXGJy RUR1FMAwWhIqchIbFLty bHBhZHQxMFxjbHBhZGZ0 V2bhcINqDLPzDSdfoHNs CMGhO6plsPWoTRiyEMPw cGFkZmwzXGNscGFkYjBc R2fyUKKvLhOlA4KjnFq3 NjAwXGNsdmVydGFsdFxj wWGzKVX0XUAzBNGmVWCm CCX7HUJqVtYcllWpIMrb bGJyZHJiXGJyZHJzXGJy ZPP5PSEiQoXgvlZtBJja bGJyZHJsXGJyZHJzXGJy XWU5PXEgXeRdhxRiFGji bGJyZHJyXGJyZHJzXGJy UNH2KDXbGkUstaZuLCrz bHBhZHQxMFxjbHBhZGZ0 Z8upwMJuHWYdJQxulRPx PQGlJ6cisEQiRBbrPDFw cGFkZmwzXGNscGFkYjBc P6ceSBBiCgOgR3OtkZt3 NtJfOPOkiqZibN25Kzcf i3OnJXXpGCI9PGtbDYux bFxwbGFpblxmMVxmczIw OHuivnfqMRNuLLslU6cy ThRxYXTqfIczYDiio4Cg XGYxXGNmMlxmczIwXGIg ZXOcQVNblR7qEddgJ7Ab bT2oECedFqzzV6ipAKFt d9LqbY6oKTzcwAIfjeox MVxmczIwXGxhbmcxMDMz JBizO6ffVjBvEJPjtIvz FHonm8SbDJVsKMDwJihd rpPpJCb7aoTjJRMsbRhk gJKyEBsnolRjyHtcy8No wyIyzLgwLFKbWUq1xjSa enkxlWl2vJStzDeqJMVq pEjglU7lFbSuYhLsRXrv bGFpblxmMVxmczIwXGxh piwwQTSeJCebN0peNsQb IUGuzMxhZOfkw3DqQUNq DJSgIhbiraGxCDPoA75t bGVjdGVkXHBsYWluXGYx XGZzMjBcbGFuZzEwMzNc aGljaFxmMVxkYmNoXGYx MGauR6eoTqMxT5NiNCMc KeTjfZSjC5igN0SyoOgu YXJkXGludGJsXHNzcGFy PSH2lYYovzLpaJEtzJYh VCXhAIytLTL1vVZwsuxi pQRnotuyDGekunQ3TDTc YWluXGYxXGZzMjBcbGFu ZzEwMzNcaGljaFxmMVxk GaOhXLIiGZgkD8rjQaAf Z4ZeTYBgZpBuVrQOFSKq aXZlZFxwbGFpblxmMVxm czIwXGxhbmcxMDMzXGhp C4stSwPePPLywZriCPkz y8DuXRKrMRUoTfpeehRo OXo2seSsIMGnnWisdD15 Zzzojc87HHKfp1eeCYKw W2AflRLtYOVhuLJnBYxy MDhcdHJwYWRkZmwzXHRy cGFkZHIxMDhcdHJwYWRk ZnIzXHRycGFkZHQwXHRy tSGqVQJ1Y0d7ydRxKJLy ZEq8ccPjWYLrTzSbcORv PDU1DKf2OjsfevD3vOVv L5t6QbdpllBiXSxojOLh cy68NCVugrTicZYvpDgt yDMrTVZ3BPGtDPQeWKIi UDG6DDMaRoAjikSqZMfh bGJyZHJiXGJyZHJzXGJy HVH0TIUlJrJegdSiBPji bGJyZHJsXGJyZHJzXGJy QDD8GIDhVjMdvdTvNUow bGJyZHJyXGJyZHJzXGJy FTG7YTVdHdErayBxQNsj bHBhZHQxMFxjbHBhZGZ0 M7dfaIInWZYdKWrioQMg JJHhC4hdkBGfLZpxTTRo cGFkZmwzXGNscGFkYjBc Q0uiDYRrYlCcD9PoyMp2 MDAwXGNsdmVydGFsdFxj iMLpWDM0QTYjCVZmEITi PQZ7FQVmYbXathOlDOhb bGJyZHJiXGJyZHJzXGJy YTM1ZMCjBfIjuhEjZRfr bGJyZHJsXGJyZHJzXGJy GGV0PKRjLlQtycFeWTqx bGJyZHJyXGJyZHJzXGJy YTG6QTVdQfDgvwXiEGwu bHBhZHQxMFxjbHBhZGZ0 J3hohDHpAHBgVTzldIHi HXIlR3pfyUUoSFagTFVc cGFkZmwzXGNscGFkYjBc P9ouYRDzUeGwH1CvzLs6 NjAwXGNsdmVydGFsdFxj mJEdHIX4YHZpPVZoTEYe ZBI2ULNqGkVjzmDwOWvo bGJyZHJiXGJyZHJzXGJy PUY5QJRuTvFybmAnVBbw bGJyZHJsXGJyZHJzXGJy OIJ9FKTnIyJdgzSmSRhl bGJyZHJyXGJyZHJzXGJy PYI6KQKhEcSjqmTpPGzs bHBhZHQxMFxjbHBhZGZ0 X5twkBDsMFOcPZrwnCBb DEIkE4rwgGQhEVyhEIJx cGFkZmwzXGNscGFkYjBc N9nkSYYwNfBaA5AanRf0 LiCpQELbxiGnkR62Nahn j9EuBECySDN9CTzqRLma bFxwbGFpblxmMFxmczI0 XHBsYWluXGYxXGZzMjBc bGFuZzEwMzNcaGljaFxm PResJnCdFPCrVLdzZ2ip GmOlL4LtMMJcYtOjMR2i O7AeTiQcBww9WPyaZOA0 FZUKWYIlUBAYD5CLEicc RKRXQ0PsxAktvN2eXzIl IuHuWUuuFT8tLHKoD6od pNXtJFNiXGWaB1vrOlWh wJ7quBfkVXalQfXqSgCl MFxsdHJjaFxjZWxsXHBh ceKdiY01Qlwwz0AdYOQf XUU7GHuaREmpoPgqkUCa kgghEIpfemA2ZTZwGKcm XGYxXGZzMjBcbGFuZzEw MzNcaGljaFxmMVxkYmNo REUaZKvyO4yiSvNeM8Wp JIVzRaXrAKDrIl6ePMSs XHBsYWluXGYxXGZzMjBc bGFuZzEwMzNcaGljaFxm PQtqLfQwDINcHMvhZ2px CrQzC5KmTLDaDdUseIFv A4maV9HsyHboIRDdDVym vULgRFTfgZWzYHC4pNGm gqWdnNqpkOnyfM8mOzMj ZnMyNFxwbGFpblxmMVxm czIwXGxhbmcxMDMzXGhp S1mpCwVnSHGhzAodEIpj a0DmBPYfKSYwLfdqclIq IDUvMTEvMjAyMlxwbGFp blxmMVxmczIwXGxhbmcx YCYfYErhV8ayDxIwKJAk zYrcKMwhy2MhVQDnIMTq YudijfGyKMm8uiXsQSUa mUgkeY05Njhaxp04XNHv ytIxy3VgNMBqXHI2YGvx MFxxbFxwbGFpblxmMFxm xgM1ELGqEWisFOZzPPTs MjBcbGFuZzEwMzNcaGlj aFxmMVxkYmNoXGYxXGxv L3pwWsMbOvEsBFrkFZH8 Addendum 1 (test code = k7eyhMQmQLMknNX0DbXr 37) ALNam4ezr6TsaCFhpZUm KTctcBJdszBbrq87iFB3 pQ36VX8xRYSjLzK7XFBu bzQ0Hzy0FGYlXBHsvZMp V354y9pab4zojqJvrBZ6 KOZfLZNnS9YjKP2zCOMm gHMqD15qhCBwNIK8BFSr IMHrvNTrMOAlMHS6SSXj zYNmX6gaNTNpJQ6psnhq NGkcDCmnZRPqcBD8HYVs kLNiN6GvOUWcGPhkOCIi nhs1EnJhAo9bwNTxnQjx MFxwYXJkXHBsYWluXGZz EtOcQ4TwVF24rUBjBGFi ENOMJNFfFCR6IJe0ZDOs MWYHNbcgXGPAQC6LJ6Vy AYGtKWPYNXKka6adVZW5 LAUdh46qZCFmIp2qQVId KTpccGFyXGNmMFxwYXJc vMt4MbXsgWsyZwAmHMUr JZYLnVAwulqtyk2ifNsh drwks9RvW3LtZvtsbAD7 IHgyOlxwYXJcbGkyMTYw GWPeJRezYQdsrH4tDQLg IEJpbGUgZHVjdCBhZGVu s08izahaCP7oRFKncfLv ZL9fXHNgEASexcIGkwAb TDkuY26irgH6BObrKQ82 aWZpZWQuXHBhclxwYXJc cGFyZFxwYXJ9 Diagnosis (test code = i3pisBGsMDQixKM8NvGd 34) UOEih5ull9CewGHdeVKs HFgluINdwnXrle23bOF8 dV53TB0eKWGuPrJ5QVLv dgN9Ber1OWNbABRjfCFm P273x6jdy2crotWofEK1 VJXhTNSoY8DkLW1pLJQf gDZzV23auUUtWPP5BCPq QXYtcZXoVLOsTOR6YUNe cXVdE4dzIMXyQU9mevrz BZsuBDhxOXGjyGA9ZQKx gJMjT4EwOBJhRFdpEDHd tks5VjViMf3vfRKjmMte MFxwYXJkXHBsYWluXGZz VhUgL4NhGO33qWQjBRFf NKZJVZEhUUV4HDf9DTTp GTSVAsrdVVHKQL9JK5Rj EVQbOYBACOEpl1ohVBD3 TZUxl63gXSBjSe7hKIJz KTpccGFyXGNmMFxwYXJc wYl0ObXdaTtpXrBeHIVw BKgrzgBqfZ8lw2m6jZRk UUFaeiKputgyMT3xx6Xo VMVcK40mvyQipRXdIJBh A2Hqe000ANFgthgijSGw NjBcZmktNzIwXGxpbjIx TeHzMyZnkLlgURE5wp5c SJetHkgwko3vaXWhuAnl bGluaXphdGlvbiBhbmQg crZbU0YfSWKrpIXxnGrd ZXJhdGlvbiBpbnZvbHZp aauocAOmKA04HUUrJqRt PHRhTP8oAVZtq5FqZECd zh7kQR2kGZBjNXBim62i NW47GMEsLFehWBZnAHXt f0Tcn6w3UKKtWmFwN69m KFBlciBvdXRzaWRlIHJl sM8tyRqduNWjOD8uSCRx sS6nkVLbi8BeEPKekfD3 eM6hueRroaWbAW46DRll LzEpLlxwYXIgUmVzZWN0 rP8iXX1hymrjbqBfUQWc FEOfe4EsjDApc5NwGLAy zqYWasZejAPqu0WvrQFh i42biZgoGu11YFadnPUc m0NyAtyfVRDekTOjZLab JuEoJHQsEFldxB41LzFa Ne6vKLVgKL83BKG7JEWs aW4ef0p0KJFobbv3IHWe SHlhbGluaXplZCBzdHJv dOHtJTNhv1ydMmHgHAAf h06nDQjiFLObR44ydZXc dCAjMilccGFyXHBhciBD XuACiHVueiskst2ceIpd ujosm6WdY8SeXkidmEK5 IHgyOlxwYXJcdGFiIFRv WAXaDOIzM17zXQCfpCLt WuvyG3oemEI6lF9rg5p0 WZlezBHwe8Emm2YbBRUa FMNrPEBoSXQlnP4ppCbu XHBhclxwYXJccGFyXHBh cmRccGFyfQ== Comment (test code = m7mreUWxGGDqyQR3JjFz 9863) QCNjn0wrg6AjuOQxfEUr UChxhAGfqiZljb99uIW4 cI10WJ0mIDCaHoE9ZGSc zhK1Pni0PXWxSOEkrQQj W698g6wzq4ndzhJilER2 zSfxPMLcpvytLxS7QZjo JPMsrglnDRt1KFgiIXDj iXR2ZAPqxTSrS4BwGJXu BX2btgb5NXP6BWwbWOSw HnZ9PCPmxYQtLQExnJmp ARfzj309DYV7PnMvKHJj emHrbAcxeY9sTfAhQJVs XBiIbQZzzTA7XJXaaK1i mD3ijVbaiL1ezHEqwJVc wECenBMmmkVmv7lcjiR2 dCX8TYYzDOYzkMDhfYKc IGNvbXBvbmVudCBpcyBu RBlazKg8JYYoa0NdTxM4 GS1dUMOdunoiNEjtxEWc TVRxLQI9cYDjo4Yoe76q LYAHBnowUMPYUXM0SWSq NXXyhN3zKLXqf440oQIq gTTfdPYnGII5tG3uGHIE SzEsIFNPWDEwLCBmYWN0 i1YzJbtJDSSzPLTxbaDi W7SfVlJhTQWMBZV8RZdv X1javRuuqLSiutVhD4Cb IYHgG1occb5pqCByZBNj jQZoOJAnpoSWwXHay3Td brActOAteI0ruC5iluCs hpLwzGaug8Dlu3RsGWWo ZP7rO04weNIqP0Zdyzmd RiL3NKf6ONwsJTJyQBcj MZ5ayA5bMDTfFXHgAAIx uDB8OcLJxMNiKFafVsDs PZ82yDAgQTQdSBckg4Th cyBpbmNsdWRlcyBhIHJl OGD3cAWpVD1wGIBqlziu imMaeCVsu8EjAHR3xLYq qOEcJ5RbxvOirjEtMLQy MM8qX38rytOiW2DvBYSj aMQgxM9oELR2K3xxPSYx KK9hOGR5LCXki3Wvwd16 jlNvDKgav0ZyRWJoz77a AnTeTD2njtejr40jCIbs nVzygaFqT0GgtxUoU2fo vikelr8hGFWktwzjUNTy OpE5RQE3It3lvYXsFHOw yP93se1chNH0w9ZjDU4j Z2GuVHI7PKmzLTUohrPA d96anqBnSTVuvDVeiaBx HPQtozCiIa6yYQQrpFyn nZGnSTRak9HydXlvtz8t cGFyXHBhclxwYXJ9 Disclaimer (test code = w2dnoAMvNCLshIHaXsUh 9844) IKJlVZFzb9hsOIEbkFUi ZzEwMzNcZnRuYmpcdWMx CRQfPhRml7zfn660rEDz g1tkTPItLnQ0iWAdADTt xDWzE197RBIjAHgto1ge q5NpFRTvxCLlq3A8DOWW astklUc0gRqvD21hx4I8 LykcT4bbZLUaMIFdS5Ly WF0rXDUdPma7TMJ9IMT9 NQNyBIRzS4HtUE2iLJWw pRCxKFf5t5fppOwhUCBj YZJ1z8hzJBahwzXbTW5m gd3gbWk6g7uqxkGaGZId LNXvfIJQSHRqR8ZliPbd Nj0zlGv6xResWlvsZFB8 Jdk7DV7mdt83jqe3yWeb CVQlcyydSaE6MEgbIAAg drpuAOo6IXqrWNSauBD6 SDAuqTSsK0KkTBKgFM0a dju2EHI3LLmzBJNdTaO5 NDBcaGVhZGVyeTcyMFxm l152TZG1HxVyCV6iT5Mx z6D2iU8qoNLjIUIzsRBk SxPrBEKhjz5cwWCnVZvd m0XcQIF5saK6gDAkxZQc QDPtDO23Fzpsk7KfJmlh EBP9WWAbznQxu0Kog4ur ZuZqgiIsW6kjT5FyTOBo TDTqJHVjTlProtNzt8Fa m7WfgZBcwGs2c6yjBDZy MBJqwNhkc5uoEFT7UPCz Y6N0mTYov9kiHFmlCGMo uTR9oqM9WBMajEIrD1Ml hS4mRDDsSX0jypd6o4ie ZEF0TRzqLSHhMnB4nnQ0 NDBcaGVhZGVyeTcyMFxm k922VMO9RbNwGFMod0Zl E1UcpHhmZ35vrMwnG97n MWEivTfrjA0cdYnjlG4o ZjBcZnMyNFxxbFxwbGFp ahsgMQetyxU6YAdbjrgr XGUjCUpvH2yhLsZlMBDi tVrwOSeds9VtTZLsWIEs DdusozO5AYNAt10jJWOp g1UdYMQwuX7grHSiLPdj cxWntRN2UQjtafMpDtMf jnKhHFQqpV4iKKMgYK2e EGZfpyYncc8sxeVsSXKh ZBJfY7OwxragyNjtviDe YCFjms2jnoLkGOY2WVCQ ZP8VTLWiKEJcx27aLUXv aNrlnI3lsXUwiqLiDSMd b0UyyM7axRLJPKPiZ6fv KS3cTIwyi9XzxVIrfTGm jZH2XJCoa1JzOyJdxlQi cIJowJBaM2UpxDtyP7cg WHQiLZQcpaDioUHpj9Ll EAEpoUF9yNGyGP5EQwEA g99iMRCwNBJHluAkLXNi dMypxAE2pnW1eY8tWrFZ ZiBhcHBsaWNhYmxlLCBj n904pv8eupN4MWWvTHIq xynjj0GwGJCrZDPkwG12 RNPgWHPdxc8zpdmooQVl fvDvV0Rqqzx2pH1wUCWm YWluXGYxXGZzMjJcbGFu ZzEwMzNcaGljaFxmMVxk UcMkQZPrNRirC1ptScQo ZnMyMlxwYXJ[address] [id number] 22:32:52 Test Item Value Reference Range Interpretation Comments POCT Molecular FluA (test code = Negative Negative 19351-5) POCT Molecular FluB (test code = Negative Negative 60297-1) Lab Interpretation (test code = Normal 85664-1) [id number] 22:26:40 Test Item Value Reference Range Interpretation Comments POCT Molecular Strep (test code = Negative Negative 90775-4) Lab Interpretation (test code = Normal 85180-2) [facility] [Presence] in Respiratory specimen by ADELAIDA with probe [id number] 21:35:28 Test Item Value Reference Range Interpretation Comments SARS-CoV-2 (COVID-19) RNA Not detected Not-Detected [Presence] in Respiratory specimen by ADELAIDA with probe detection (test code = 72659-8) Whether patient is employed in a healthcare setting (test code = 78446-3) Whether the patient has symptoms related to condition of interest (test code = 82954-2) Patient was hospitalized because of this condition (test code = 32559-7) Whether the patient was admitted to intensive care unit (ICU) for condition of interest (test code = 12704-4) Whether patient resides in a congregate care setting (test code = 81824-7) SARS-CoV-2 (COVID-19) RNA [Presence] in Respiratory specimen by ADELAIDA with probe [id number] 07:00:55 Test Item Value Reference Range Interpretation Comments SARS-CoV-2 (COVID-19) RNA Not detected Not-Detected [Presence] in Respiratory specimen by ADELAIDA with probe detection (test code = 28791-1) Whether patient is employed in a healthcare setting (test code = 65189-3) Whether the patient has symptoms related to condition of interest (test code = 79699-7) Patient was hospitalized because of this condition (test code = 72810-5) Whether the patient was admitted to intensive care unit (ICU) for condition of interest (test code = 86350-9) Whether patient resides in a congregate care setting (test code = 14583-1) SARS-CoV-2 (COVID-19) RNA [Presence] in Respiratory specimen by ADELAIDA with probe [id number] 14:44:09 Test Item Value Reference Range Interpretation Comments SARS-CoV-2 (COVID-19) RNA Not detected Not-Detected [Presence] in Respiratory specimen by ADELAIDA with probe detection (test code = 60400-2)
[2022-06-20 19:58] LABS: Absolute Lymphocytes (CBC) 1.1 K/uL (0.7-4.9); Hematocrit 32.3 % (36.0-45.0); Lymphocytes % 16.4 % (15.3-44.8); MCV 84.9 fL (80-100); MPV 7.3 fL (7.6-11.3); RBC Red Blood Cell Count 3.81 M/uL (3.86-4.86)
[2022-06-20] MEDS ORDERED: HYDROMORPHONE HCL 1 MG/ML INJ ONE (19:58)
[2022-06-20] MEDS ORDERED: NA CHLORIDE 0.9% 1,000 ML ONE (19:58)
[2022-06-20] MEDS ORDERED: PROMETHAZINE INJ 25 MG/ML AMP ONE (19:58)
[2022-06-20 20:05] LABS: Protime INR 0.88
[2022-06-20 20:16] LABS: ALT/SGPT 32 U/L (12-78); AST/SGOT 18 U/L (15-37); Albumin 3.6 g/dL (3.4-5.0); Alkaline Phosphatase 67 U/L (45-117); BUN Blood Urea Nitrogen 24 mg/dL (7-18); Bicarbonate 31 mmol/L (21-32); Bilirubin Total 0.3 mg/dL (0.2-1.0); Glomerular Filtration Rate 50 ml/min (=/>90); Glucose Level 138 mg/dL (74-106); Magnesium 2.3 mg/dL (1.8-2.4); NT PRO-BNP 82 pg/mL (<125); Potassium 3.9 mmol/L (3.5-5.1); Protein, Total 6.9 g/dL (6.4-8.2); Sodium Level 138 mmol/L (136-145); Troponin High Sensitivity 14.5 pg/mL (<58.9)
[2022-06-20 20:17] LABS: Bilirubin Direct < 0.1 mg/dL (0-0.2)
--- NOTE | 2022-06-20 20:34 | RAD REPORT ---
EXAM DESCRIPTION: RAD - Chest Single View - 06/20/2022 8:22 pm CLINICAL HISTORY: Dizziness Chest pain. COMPARISON: Chest Single View dated 06/18/2021; Chest Single View dated 03/31/2019; Chest Pa And Lat (2 Views) dated 02/04/2018; Chest Pa And Lat (2 Views) dated 09/08/2017; ABDOMEN ACUTE SERIES dated 07/13 FINDINGS: Portable technique limits examination quality. The lungs are grossly clear. The heart is normal in size. No displaced fractures. IMPRESSION: No acute intrathoracic process suspected.
--- NOTE | 2022-06-20 21:30 | EDPHYS ---
Physician Documentation [facility] Name: Adelita Lemons Age: 61 yrs Sex: Female : 1960 Arrival Date: 06/20/2022 Time: 18:40 Bed 16 Private MD: Ignacio Mckenzie ED Physician Saúl Jensen HPI: 06/20 19:21 This 61 yrs old Female presents to ER via Ambulatory with complaints of Nausea, mh7 Dizziness, medication reaction. 19:21 The patient presents with dizziness, sense of spinning. mh7 19:21 Onset: The symptoms/episode began/occurred last night. Context: occurred at home, mh7 occurred while the patient was sitting, just prior to the episode the patient experienced no apparent symptoms. Modifying factors: The symptoms are alleviated by holding head still, the symptoms are aggravated by movement of head, changing position. Associated signs and symptoms: Pertinent positives: nausea, Pertinent negatives: abdominal pain, agitation, ataxia, blurred vision, chest pain, combativeness, confusion, diaphoresis, focal weakness, head injury, headache, near-syncope, numbness, palpitations, seizure, shortness of breath, syncope, tingling, vomiting. Severity of symptoms: At their worst the symptoms were moderate last night, in the emergency department the symptoms are unchanged. Patient's baseline: Neuro: alert and fully oriented, Motor: no deficits, Ambulation: walks without assistance, Speech: normal, The patient has a previous history of vertigo. The patient has experienced similar episodes in the past, a few times. The patient has been recently seen by a physician: yesterday, Saw her pain doctor, The patient has been recently seen at the [facility] Emergency Department, this week. Patient states that she had right shoulder surgery 4 days ago and was seen here due to inadequate pain control 2 days ago. She followed up with pain doctor yesterday who prescribed Dilaudid pills. She states that she has history of nausea and dizziness with that medication unless she also takes Phenergan with it. She was not prescribed Phenergan and thus has had dizziness with spinning sensation and nausea. She also complains of pain to right shoulder as she last took the pain medication this morning as she realized that was the source of her symptoms. She denies any fever, headache, neck pain, chest pain, abdominal pain, SOB, cough, numbness/tingling, or weakness.. Historical: - Allergies: 18:49 Amoxicillin; ap3 18:49 Bactrim; ap3 18:49 morphine-vomiting; ap3 - PMHx: 18:49 GERD; Hypertension; ap3 - PSHx: 18:49 Appendectomy; Cholecystectomy; Fibrous mass removed from abd; hysterectomy; L knee ap3 replacement; R hip replacement; right rotator cuff; - Immunization history:: Client reports receiving the 2nd dose of the Covid vaccine. - Social history:: Smoking status: Patient denies any tobacco usage or history of. ROS: 19:21 Constitutional: Negative for fever, chills, and weight loss, Eyes: Negative for injury, mh7 pain, redness, and discharge, ENT: Negative for injury, pain, and discharge, Neck: Negative for injury, pain, and swelling, Cardiovascular: Negative for chest pain, palpitations, and edema, Respiratory: Negative for shortness of breath, cough, wheezing, and pleuritic chest pain. 19:21 Back: Negative for injury and pain, : Negative for injury, bleeding, discharge, and swelling, MS/Extremity: Negative for injury and deformity, Skin: Negative for injury, rash, and discoloration, Neuro: Negative for headache, weakness, numbness, tingling, and seizure, Psych: Negative for depression, anxiety, suicide ideation, homicidal ideation, and hallucinations, Allergy/Immunology: Negative for hives, rash, and allergies, Endocrine: Negative for neck swelling, polydipsia, polyuria, polyphagia, and marked weight changes, Hematologic/Lymphatic: Negative for swollen nodes, abnormal bleeding, and unusual bruising. 19:21 Abdomen/GI: Negative for abdominal pain, vomiting, diarrhea, constipation, abdominal cramps, abdominal distension, anorexia, dysphagia, hematemesis, black/tarry stool, rectal pain, rectal bleeding, bowel incontinence, flatulence. Exam: 19:21 Head/Face: Normocephalic, atraumatic. Eyes: Pupils equal round and reactive to light, mh7 extra-ocular motions intact. Lids and lashes normal. Conjunctiva and sclera are non-icteric and not injected. Cornea within normal limits. Periorbital areas with no swelling, redness, or edema. ENT: Nares patent. No nasal discharge, no septal abnormalities noted. Tympanic membranes are normal and external auditory canals are clear. Oropharynx with no redness, swelling, or masses, exudates, or evidence of obstruction, uvula midline. Mucous membranes moist. Neck: Trachea midline, no thyromegaly or masses palpated, and no cervical lymphadenopathy. Supple, full range of motion without nuchal rigidity, or vertebral point tenderness. No Meningismus. Chest/axilla: Normal chest wall appearance and motion. Nontender with no deformity. No lesions are appreciated. Cardiovascular: Regular rate and rhythm with a normal S1 and S2. No gallops, murmurs, or rubs. Normal PMI, no JVD. No pulse deficits. Respiratory: Lungs have equal breath sounds bilaterally, clear to auscultation and percussion. No rales, rhonchi or wheezes noted. No increased work of breathing, no retractions or nasal flaring. Abdomen/GI: Soft, non-tender, with normal bowel sounds. No distension or tympany. No guarding or rebound. No evidence of tenderness throughout. Back: No spinal tenderness. No costovertebral tenderness. Full range of motion. Skin: Warm, dry with normal turgor. Normal color with no rashes, no lesions, and no evidence of cellulitis. MS/ Extremity: Pulses equal, no cyanosis. Neurovascular intact. Full, normal range of motion. 19:21 Psych: Awake, alert, with orientation to person, place and time. Behavior, mood, and affect are within normal limits. 19:21 Constitutional: The patient appears in no acute distress, alert, awake, uncomfortable. 19:21 Neuro: Orientation: is normal, Mentation: is normal, Memory: is normal, Cranial nerves: grossly normal, Cerebellar function: is grossly normal, Motor: is normal, Sensation: is normal, Gait: not tested. seizure activity, is not displayed by the patient, Abnormal movements: there are no abnormal movements. Vital Signs: 18:45 Pulse 75; Resp 18; Temp 98.0; Pulse Ox 98% ; Weight 92.99 kg; Height 6 ft. (182.88 cm); ap3 Pain 9/10; 18:50 BP 158 / 79; ap3 20:16 BP 125 / 91; Pulse 75; Resp 18; Pulse Ox 95% on R/A; vc1 21:30 BP 124 / 88; Pulse 88; Resp 17; Pulse Ox 96% on R/A; vc1 18:45 Body Mass Index 27.80 (92.99 kg, 182.88 cm) ap3 MDM: 21:23 Differential diagnosis: cardiac arrhythmia, hypovolemia, idiopathic dizziness, mh7 near-syncope, sepsis, vertigo. Data reviewed: vital signs, nurses notes, old medical records, lab test result(s), cardiac enzymes, CBC, electrolytes, EKG, radiologic studies, plain films. Data interpreted: Pulse oximetry: on room air is 96 %. Interpretation: normal. Counseling: I had a detailed discussion with the patient and/or guardian regarding: the historical points, exam findings, and any diagnostic results supporting the discharge/admit diagnosis, lab results, radiology results, the need for outpatient follow up, to return to the emergency department if symptoms worsen or persist or if there are any questions or concerns that arise at home. Response to treatment: the patient's symptoms have resolved after treatment, the patient's blood pressure is in an acceptable range, mental status has returned to baseline, the patient no longer shows bradycardia, the patient is not short of breath, the patient is not tachycardic, the patient's pain is gone, the patient's temperature has normalized, the patient's condition has returned to base line, patient is well hydrated. Tolerating PO intake without difficulty. Refusal of service: The patient/guardian displays adequate decision making capability and despite a detailed discussion of alternatives, benefits, risks, and consequences refuses: CT Scan. ED course: Feels better, well appearing, NAD, VSS, no focal neurological deficits. No dizziness, spinning sensation, nausea, vomiting, headache, or other complaints. Tolerating PO intake without difficulty. Discussed test results and findings. Recommended CT head for work up but patient declined. She requests to be discharged from the ER at this time. She will follow up with her doctor. Advised to return to the ER if worsening of symptoms or any other concerns.. 21:29 Patient medically screened. [facility] 06/20 19:18 Order name: Basic Metabolic Panel; Complete Time: 20:18 [facility] 06/20 19:18 Order name: CBC with Diff; Complete Time: 20:18 [facility] 06/20 19:18 Order name: LFT's; Complete Time: 20:18 [facility] 06/20 19:18 Order name: Magnesium; Complete Time: 20:18 [facility] 06/20 19:18 Order name: NT PRO-BNP; Complete Time: 20:18 [facility] 06/20 19:18 Order name: PT-INR; Complete Time: 20:18 06/20 19:18 Order name: Troponin HS; Complete Time: 20:18 [facility] 06/20 19:18 Order name: XRAY Chest (1 view); Complete Time: 20:41 [facility] 06/20 19:18 Order name: EKG; Complete Time: 19:20 [facility] 06/20 19:18 Order name: Cardiac monitoring; Complete Time: 20:15 [facility] 06/20 19:18 Order name: EKG - Nurse/Tech; Complete Time: 20:15 [facility] 06/20 19:18 Order name: IV Saline Lock; Complete Time: 20:15 [facility] 06/20 19:18 Order name: Labs collected and sent; Complete Time: 20:15 [facility] 06/20 19:18 Order name: O2 Per Protocol; Complete Time: 20:15 [facility] 06/20 19:18 Order name: O2 Sat Monitoring; Complete Time: 20:15 Administered Medications: 20:14 Drug: NS 0.9% 1000 ml Route: IV; Rate: 1000 ml; Site: left antecubital; vc1 21:14 Follow up: IV Intake: 1000ml vc1 21:14 Follow up: IV Status: Completed infusion; IV Intake: 1000ml vc1 20:15 Drug: Dilaudid (HYDROmorphone) 1 mg Route: IVP; Site: left antecubital; vc1 21:30 Follow up: Response: No adverse reaction; Marked relief of symptoms vc1 21:31 Follow up: Response: No adverse reaction; Marked relief of symptoms; Pain is decreased; vc1 RASS: Drowsy (-1) 20:15 Drug: Phenergan (promethazine) 12.5 mg Route: IVP; Site: left antecubital; vc1 21:31 Follow up: Response: No adverse reaction; Marked relief of symptoms; Nausea is decreasedvc1 Disposition Summary: 06/20/22 21:29 Discharge Ordered Location: Home [facility] Problem: an acute exacerbation [facility] Symptoms: have improved [facility] Condition: Stable [facility] Diagnosis - Dizziness and giddiness 7 - Vertigo 7 - Nausea mh7 - Post operative pain mh7 Followup: mh7 - With: Private Physician - When: 1 - 2 days - Reason: Worsening of condition, Recheck today's complaints, Continuance of care, Re-evaluation by your physician Followup: [facility] - With: Gissell Sterling MD - When: 1 - 2 days - Reason: Worsening of condition, Recheck today's complaints Discharge Instructions: - Discharge Summary Sheet [facility] - Nausea, Adult [facility] - Vertigo, [id number] [facility] - Dizziness, Grri-ah-Wyza [facility] Forms: - Medication Reconciliation Form [facility] - Thank You Letter [facility] - Antibiotic Education [facility] - Prescription Opioid Use [facility] Prescriptions: - Meclizine 25 mg Oral Tablet - take 1 tablet by ORAL route every 8 hours As needed; 15 tablet; Refills: 0, [facility] Product Selection Permitted - promethazine 25 mg Oral Tablet - take 1 tablet by ORAL route every 6 hours As needed; 12 tablet; Refills: 0, [facility] Product Selection Permitted Signatures: Dispatcher [employer] Lakeisha Bush RN RN ap3 Saúl Jensen MD MD [facility] Nandini Cortes RN RN vc1
--- NOTE | 2022-06-20 21:30 | ER ---
Nurse's Notes [facility] Name: Adelita Lemons Age: 61 yrs Sex: Female : 1960 Arrival Date: 06/20/2022 Time: 18:40 Bed 16 Private MD: Ignacio Mckenzie Diagnosis: Dizziness and giddiness;Vertigo;Nausea;Post operative pain Presentation: 06/20 18:45 Chief complaint: Patient states: she hat rotator cuff sx on Wednesday06/16/2022, then came ap3 to the ED for uncontrolled pain. Patient states she got in to see her pain DrNicole yesterday and was given a rx for hydromorphone 4mg PO. Patient states that she is now nauseated and dizzy. She states that when she gets Dilaudid in the IV, she has to have phenergan with it. Patient states "if getting on the floor and throwing a temper tantrum right now would help me, i would do it!". Coronavirus screen: At this time, the client does not indicate any symptoms associated with coronavirus-19. Ebola Screen: No symptoms or risks identified at this time. Initial Sepsis Screen: Does the patient meet any 2 criteria? No. Patient's initial sepsis screen is negative. Does the patient have a suspected source of infection? No. Patient's initial sepsis screen is negative. Risk Assessment: Do you want to hurt yourself or someone else? Patient reports no desire to harm self or others. Onset of symptoms was June 20, 2022. 18:45 Method Of Arrival: Ambulatory ap3 18:45 Acuity: CRISTAL 3 ap3 Triage Assessment: 18:50 General: Appears distressed, uncomfortable, Behavior is restless. Pain: Complains of ap3 pain in right shoulder Pain currently is 9 out of 10 on a pain scale. Neuro: Level of Consciousness is awake, alert, obeys commands, Oriented to person, place, time, situation, Appropriate for age Gait is steady, Speech is normal, Reports dizziness. Cardiovascular: Patient's skin is warm and dry. Respiratory: Airway is patent Respiratory effort is even, unlabored, Respiratory pattern is regular, symmetrical. GI: Reports nausea. Historical: - Allergies: 18:49 Amoxicillin; ap3 18:49 Bactrim; ap3 18:49 morphine-vomiting; ap3 - PMHx: 18:49 GERD; Hypertension; ap3 - PSHx: 18:49 Appendectomy; Cholecystectomy; Fibrous mass removed from abd; hysterectomy; L knee ap3 replacement; R hip replacement; right rotator cuff; - Immunization history:: Client reports receiving the 2nd dose of the Covid vaccine. - Social history:: Smoking status: Patient denies any tobacco usage or history of. Screenin:51 Abuse screen: Denies threats or abuse. Nutritional screening: No deficits noted. ap3 Tuberculosis screening: No symptoms or risk factors identified. 19:10 Fall Risk No fall in past 12 months (0 pts). Secondary diagnosis (15 points) Pain vc1 medicine. Assessment: 19:10 Reassessment: See triage assessment. vc1 20:00 Reassessment: No changes from previously documented assessment. Patient and/or family vc1 updated on plan of care and expected duration. Pain level reassessed. Patient is alert, oriented x 3, equal unlabored respirations, skin warm/dry/pink. 21:29 Reassessment: Patient and/or family updated on plan of care and expected duration. Pain vc1 level reassessed. Patient is alert, oriented x 3, equal unlabored respirations, skin warm/dry/pink. Patient states feeling better. Patient states symptoms have improved. Vital Signs: 18:45 Pulse 75; Resp 18; Temp 98.0; Pulse Ox 98% ; Weight 92.99 kg; Height 6 ft. (182.88 cm); ap3 Pain 9/10; 18:50 BP 158 / 79; ap3 20:16 BP 125 / 91; Pulse 75; Resp 18; Pulse Ox 95% on R/A; vc1 21:30 BP 124 / 88; Pulse 88; Resp 17; Pulse Ox 96% on R/A; vc1 18:45 Body Mass Index 27.80 (92.99 kg, 182.88 cm) ap3 ED Course: 18:40 Patient arrived in ED. as 18:41 Ignacio Mckenzie MD is Private Physician. as 18:49 Triage completed. ap3 18:51 Arm band placed on left wrist. ap3 18:54 Saúl Jensen MD is Attending Physician. mh7 19:09 Nandini Cortes RN is Primary Nurse. vc1 19:11 Patient has correct armband on for positive identification. Pulse ox on. NIBP on. vc1 19:50 Inserted saline lock: 22 gauge in left antecubital area, using aseptic technique. Blood vc1 collected. 20:24 XRAY Chest (1 view) In Process Unspecified. EDMS 21:31 Gissell Sterling MD is Referral Physician. [facility] 22:03 No provider procedures requiring assistance completed. IV discontinued, intact, vc1 bleeding controlled, No redness/swelling at site. Pressure dressing applied. Administered Medications: 20:14 Drug: NS 0.9% 1000 ml Route: IV; Rate: 1000 ml; Site: left antecubital; vc1 21:14 Follow up: IV Intake: 1000ml vc1 21:14 Follow up: IV Status: Completed infusion; IV Intake: 1000ml vc1 20:15 Drug: Dilaudid (HYDROmorphone) 1 mg Route: IVP; Site: left antecubital; vc1 21:30 Follow up: Response: No adverse reaction; Marked relief of symptoms vc1 21:31 Follow up: Response: No adverse reaction; Marked relief of symptoms; Pain is decreased; vc1 RASS: Drowsy (-1) 20:15 Drug: Phenergan (promethazine) 12.5 mg Route: IVP; Site: left antecubital; vc1 21:31 Follow up: Response: No adverse reaction; Marked relief of symptoms; Nausea is decreasedvc1 Medication: 19:13 VIS not applicable for this client. vc1 Intake: 21:14 IV: 1000ml; Total: 1000ml. vc1 21:14 IV: 1000ml; Total: 2000ml. vc1 Outcome: 21:29 Discharge ordered by . 7 22:03 Discharged to home via wheelchair. vc1 22:03 Condition: good 22:03 Discharge instructions given to patient, Instructed on discharge instructions, follow up and referral plans. medication usage, Demonstrated understanding of instructions, follow-up care, medications, Prescriptions given X 2. 22:04 Patient left the ED. vc1 Signatures: Dispatcher [employer] Estefania Branch Amanda, RN RN [email or web address] Saúl Jensen MD MD 7 Nandini Cortes RN RN vc1
[2022-06-20 23:17] VITALS: TEMP 98
[2022-06-20 23:23] VITALS: BP 124/88; O2SAT 96
--- NOTE | 2022-06-22 13:47 | EKG ---
Test Date: 2022-06-20 Test Time: 20:02:30 Bank Courier: PAULETTE MEASUREMENT RESULTS: Intervals: Rate: 69 HI: 146 QRSD: 96 QT: 386 QTc: 413 [place]: P: 59 HI: 146 QRS: 12 T: -1 INTERPRETIVE STATEMENTS: Normal sinus rhythm Possible Left atrial enlargement Left ventricular hypertrophy Abnormal ECG Compared to ECG 06/18/2021 08:57:08 Left ventricular hypertrophy now present Electronically Signed On 06-22-22 13:44:10 CDT by Lance Mistry
== END 2022-06-20 22:04 | disposition home or self-care (01) ==
LOC: ER 18:38
DX: R42 Dizziness and giddiness (principal); R11.0 Nausea; G89.18 Other acute postprocedural pain; Z98.890 Other specified postprocedural states; I10 Essential (primary) hypertension; Z88.1 Allergy status to other antibiotic agents; Z88.5 Allergy status to narcotic agent
CPT/HCPCS: 96361; 93005; 85025; 80048; 36415; 83735; 85610; 80076; 84484; 83880; 71045; 96375; 96374; 99284; J2550; J1170; J7030

== ENCOUNTER 2022-07-04 14:45 | Emergency (ER) | payer OTHER ==
--- OUTSIDE RECORDS SUMMARY | 2022-07-04 14:48 | XMS REPORT | Clinical Summary ---
:1960 Author Organization [facility] MD [facility] Address [address] [place] [address] Care Team Providers Name Role Phone Madison Manning Unavailable Allergies Not on File Medications Not on file Active Problems Not on file Encounters Date Type Specialty Care Team Description 05/25/2022 Ancillary Procedure Radiology Cancer 03/30/2022 Ancillary Procedure Radiology Cancer 03/30/2022 Ancillary Procedure Radiology Cancer 03/25/2022 Lab Requisition Liban Javed MD Divatia, Mukul K, MD after 07/04/2021 Social History Tobacco Use Types Packs/Day Years [...] Cancer Resul ts for this PELVIS PM TWISTING FRAME CHANGER procedure are i n the results section. OSI CHEST Routine 08/22/2021 12:46 Cancer Results for this PM CDT procedure are i n the results section. PATHOLOGY OUTSIDE Routine 08/21/2021 Results fo r this INTERPRETATION procedure are in the results section. OSI ABDOMEN Routine 08/19/2021 12:47 Cancer Results for this PM CDT procedure are i n the results section. after 07/04/[address] Abdomen and Pelvis (12/29/2021 11:35 PM TWISTING FRAME CHANGER) Specimen (Source) Anatomical Location Collection Method / [...] Phillips originated interpretation requested or a vailable. aCndida Fajardo MD IMG OUTSIDE IMAGE ORDERABLES Pathology Outside Interpretation (08/21/2021) Component Value Ref Test Analysis Performed Pathologis t Range Method Time At Signature Materials Accession#, Stained, Block, Unstained Collected Received 03/26/2022 [facility] Received A. [id number], 38 SS, 0 BLOCKS, 0 USS 08/21/2021 03/25/2022 6:58 PM CDT Addendum 1 Outside ([id number], 38 SS, 0 BLOCKS, 0 USS, collected on 08/21/2021): 03/26/2022 [facility] Addendum 6:58 PM electronic ally C. 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 No malignancy identified. MD Paty on 03/26/2022 at 6:58 PM Diagnosis Outside ([id number], 38 SS, 0 BLOCKS, 0 USS, collected on 08/21/2021): 03/26/2022 [facility] Electronically 6:58 PM signed by [...] and [id number]. CD34 highlights vascular channels. 03/26/2022 [facility] 6:58 PM The overall findings [...] amyloid deposition. Disclaimer "Some tests reported 03/26/2022 [facility] here may have been 6:58 PM developed and CDT performance characteristics determined by [facility] Pathology and Laboratory Medicine. These tests have [...] Organization Address City/State/ZIP Code Phon e Number [facility] [place] [address] [id number] OSI Abdomen (08/19/2021 12:47 PM CDT) Specimen (Source) Anatomical Location Collection Method / Collectio n Time Received Time / Laterality Volume Narrative Systemgenerated, Documentation - 022 12:47 PM CDT Study acquired at another institution. For comparison only. No Alan originated interpretation requested or a vailable. Candida Fajardo MD IMG OUTSIDE IMAGE ORDERABLES after 07/04/2021 Insurance Payer Benefit Plan / Subscriber ID Effective Dates Phone Addre ss Type Group [employer] MANAGED A[employer] O [id number] 2014-Present PO KIRAN X [id number] [facility] [place] [address] Care Teams Returns Processor Relationship Specialty Start Date End Date Madison Manning PCP - External Follow Up A 03/19/22
--- OUTSIDE RECORDS SUMMARY | 2022-07-04 14:50 | XMS REPORT | Continuity of Care Document ---
:1960 Author Organization [facility] t Address [address] [place] [address] Dr. Rhodes. [address] [place] [address] Care Team Providers Name Role Phone Carey Koo MD Primary Care Physician SYSTEM, PROVIDER NOT IN Attending Clinician Unavailable LISSY WILSON Attending Clinician Unavailable MAIRAN CUTLER Attending Clinician Unavailable DILAN SWENSON Attending Clinician Unavailable BROWN JIMENEZ Attending Clinician Unavailable Liban Javed MD Attending Clinician Jed Reardon MD Attending Clinician Unavailable _[facility]_Gracie_S Attending Clinician Unavailable YANELY SEARS Attending Clinician [...] Pob I Attending Clinician Unavailable Doctor Unassigned, [place] Attending Clinician Unavailable BROWN DUNLAP Attending Clinician Unavailable KORY CERVANTES Attending Clinician Unavailable NEHEMIAS ASNDOVAL Attending Clinician Unavailable CAREY KOO M.D. Attending Clinician Unavailable GC_TNC_Lovitt_S Admitting Clinician Unavailable YANELY SEARS Admitting Clinician Unavailable EDOUARD AVILA Admitting Clinician Unavailable CANDIDA OLIVAREZ Admitting Clinician Unavailable MD CANDIDA OLIVAREZ Admitting Clinician Unavailable CHU MENA Admitting Clinician Unavailable EDOUARD FREY Admitting Clinician Unavailable KORY CERVANTES Admitting Clinician Unavailable Payers Payer Name Policy Type Policy Number Effective Date Expiration Date S ource [employer]ET[employer] CHOICE POS [id number] 2013 00:00:00 II AETNA (POS) [id number] 2013 00:00:00 Problems Condition Condition Condition Status [...] dysmotilit dysmotilit Ph ysici y y ans No known No known Disease Unive rs active active ity of problems problems [facility] Hiatal Hiatal Problem Active [facility] hernia hernia Physici ans Achalasia Achalasia Problem Active [facility] Allergies, Adverse Reactions, Alerts Allergy Allergy Status Severity Reaction(s) Onset Inactive Treating Comm ents Source Name Type Date Date Clinician Amoxicil Propensi Active Unknown - Uni vers maria eugenia ty to See comments - ity of adverse 00:00: [place] reaction 00 Medical s Branch Sulfamet Propensi Active Other - See U nivers hoxazole ty to comments - ity of -Trimeth adverse 00:00: [place] oprim reaction 00 Medical s Branch Morphine Propensi Active Nausea Univer s ty to and/or 11-27 ity of adverse Vomiting 00:00: [place] reaction 00 Medical s Branch AMOXICIL DRUG Active High Unknown-Cmnt Un sugey MARIA EUGENIA INGREDI - ity of 00:00: [place] 00 Medical Branch SULFAMET DRUG Active High Other-Cmnt Univ ers HOXAZOLE 1-13 ity of -TRIMETH 00:00: [place] OPRIM 00 [facility] MORPHINE DRUG Active High N/V Univers INGREDI 1-13 ity of 00:00: [place] 00 [facility] Sulfamet Propensi Active 2020-11 [facility] hoxazole ty to 0-21 Health -Trimeth adverse 00:00: oprim reaction 00 s Amoxicil Allergy Active Hives [facility] maria eugenia to 08-08 Health substanc 00:00: e 00 Morphine Allergy Active Other [facility] to 9 Health substanc 00:00: e 00 amoxicil drug Active [facility] maria eugenia allergy Physici ans morphine drug Active [facility] allergy Physici ans Social History Social Habit Start Date Stop Date Quantity Comments Source History [facility] Health Alcohol Std Drinks History [facility] Health Alcohol Binge History [facility] Health Alcohol Comment Exposure to Not sure [facility] SARS-CoV-2 [facility] (event) [place] Alcohol intake 2021-09-10 2021-09-10 Lifetime [facility] 00:00:00 00:00:00 non-drinker (finding) Tobacco use and 2021-09-04 2021-09-04 Smokeless tobacco [facility] exposure 00:00:00 00:00:00 non-user History SDOH 2021-09-04 2021-09-04 1 [facility] Alcohol Frequency 00:00:00 00:00:00 Sex Ass[birth year] At [birth year] Universit y of 00:00:00 00:00:00 [place] MD [facility] Smoking Status Start Date Stop Date Source Unknown if ever smoked Universit y of [facility] Never smoked tobacco [facility] Medications Ordered Filled Start Stop Current Ordering Indication Dosage Frequency Signature Comments Components Source Medication Medication Date Date Medication? Clinician (SIG) Name Name bromphenira Yes [id number] 5mL Take 5 mL Univers mine-pseudo 1-13 by mouth 4 it y of ephedrine-D 00:00: (four) Aleksandra s M (BROMFED 00 times Medical DM) 2-30-10 daily as Bran ch mg/5 mL needed for syrup Congestion /Allergies . benzonatate Yes [id number] 100mg Take 1 Univers 100 mg 1-13 capsule by ity of capsule 00:00: mouth [place] 00 every 8 Medical (eight) Branch hours as needed for Cough. bromphenira Yes [id number] 5mL Take 5 mL Univers mine-pseudo 1-13 by mouth 4 it y of ephedrine-D 00:00: (four) Aleksandra Simental (BROMFED 00 times Medical DM) 2-30-10 daily as Bran ch mg/5 mL needed for syrup Congestion /Allergies . benzonatate Yes [id number] 100mg Take 1 Univers 100 mg 1-13 capsule by ity of capsule 00:00: mouth [place] every 8 Medical (eight) Branch hours as [...] Comments Source Systolic blood 2021-11-27 157 mm[Hg] [facility] pressure 22:07:[address] [facility] Diastolic blood 2021-11-27 92 mm[Hg] [place] o f pressure :07:[address] [facility] Heart rate 2021-11-27 117 /min [facility] :07:[address] [facility] Body temperature 2021-11-27 39.67 Claudine last dose of [facility] :: Motrin this AM [facility] Respiratory rate 2021-11-27 16 /min [facility] :07:[address] [facility] Body height 2021-11-27 190.5 cm [facility] :07:[address] [facility] Body weight 2021-11-27 94.518 kg [facility] :07:[address] [facility] BMI 2021-11-27 26.05 kg/m2 [facility] 22:07:[address] [facility] Oxygen saturation 2021-11-27 97 /min [facility] Arterial blood 22:07:00 [facility] by Pulse oximetry Branch Systolic blood 2021-09-04 147 mm[Hg] [facility] pressure 19:12:00 Diastolic blood 2021-09-04 72 mm[Hg] [facility] pressure 19:12:00 Heart rate 2021-09-04 94 /min [facility] 19:12:00 Body temperature 2021-09-04 36.5 Claudine [facility] 19:12:00 Body height 2021-09-04 182.9 cm [facility] 19:12:00 Body weight 2021-09-04 92.987 kg [facility] 19:12:00 BMI 2021-09-04 27.80 kg/m2 [facility] 19:12:00 BP Systolic 2019-11-01 144 mm[Hg] Location: RUE; [facility] 14:32:00 Position: Sitting BP Diastolic 2019-11-01 86 mm[Hg] Location: RUE; [facility] 14:32:00 Position: Sitting Height 2019-11-01 75 [in_us] [facility] 14:32:00 Weight 2019-11-01 194.25 [lb_av] [facility] 14:32:00 Body Mass Index 2019-11-01 24.28 kg/m2 [facility] Calculated 14:32:00 Temperature 2019-11-01 99.2 [degF] Method: Oral [facility] 14:32:00 Heart Rate 2019-11-01 103 /min [facility] 14:32:00 Respiration Rate 2019-11-01 20 /min [facility] 14:32:00 O2 SAT 2019-11-01 98 % Source: RA [facility] 14:32:00 Height 2019-10-18 75 [in_us] [facility] 10:58:00 [...] 98 % Source: RA [facility] 10:58:00 BP Systolic 2019-10-18 154 mm[Hg] Location: RUE; [facility] 10:58:00 Position: Sitting BP Diastolic 2019-10-18 93 mm[Hg] Location: RUE; [facility] 10:58:00 Position: Sitting Procedures Procedure Date / Time Performing Clinician Source Performed OSI CT ABDOMEN AND PELVIS 2021-12-30 05:35:00 [facility]U 2021-11-27 22:21:00 Ian [facility] POCT MOLECULAR STREP 2021-11-27 22:18:00 Ian [facility] OSI CHEST 2021-08-22 17:46:00 Candida Olivarez [facility] PATHOLOGY OUTSIDE 2021-08-21 00:00:00 Jed Reardon [facility] INTERPRETATION [facility] OSI ABDOMEN 2021-08-19 17:47:00 Candida Olivarez [facility] Center History of Exploratory [place] [...] Clinicians Facility Department ID 2022-04-01 Outpatient SYSTEM, [facility] [id number] 10:41:31 PROVIDER Barney o n 2022-02-06 Outpatient [facility] [id number] [place] 11:18:23 [id number] [facility] 2021-08-21 Outpatient STEVE, [facility] [id number] [place] 13:19:11 [facility] 2021-08-19 Outpatient VAN ONEIL, [facility] [id number] [place] 12:52:48 [facility] 2022-06-24 2022-06-24 Outpatient LEELA, [facility] [id number] [facility] 00:00:00 00:00:00 DILAN [facility] 2022-06-17 2022-06-17 Outpatient SAHARIA, [facility] [id number] [facility] 00:00:00 00:00:00 BROWN 937 Method i 2022-06-16 2022-06-16 Outpatient SAHARIA, [facility] [id number] [facility] 00:00:00 00:00:00 BROWN 747 Method i 2022-06-16 2022-06-16 Outpatient SAHARIA, [facility] [id number] [facility] 00:00:00 00:00:00 BROWN 131 Method i 2022-06-16 2022-06-16 Outpatient SAHARIA, [facility] [id number] [facility] 00:00:00 00:00:00 BROWN 578 Method i 2022-05-25 2022-05-25 Ancillary EL 1.2.840.1 [id number] Univers 23:30:00 23:35:00 Procedure 87359.1.1 it y of 3.412.2.7 [place] .3.843786 MD Adam [facility] 2022-03-30 2022-03-30 Ancillary EL 1.2.840.1 [id number] Univers 20:05:00 20:10:00 Procedure 21298.1.1 it y of 3.412.2.7 [place] .3.851268 MD Adam [facility] 2022-03-30 2022-03-30 Ancillary EL 1.2.840.1 [id number] Univers 20:00:00 20:05:00 Procedure 13089.1.1 it y of 3.412.2.7 [place] .3.266733 MD Adam [facility] 2022-03-25 2022-03-25 Lab Liban Javed 1.2.840.1 [id number] Univers 00:00:00 00:00:00 Jed Velez 71116.1.1 ity of n 3.412.2.7 [place] .3.575889 MD Adam [facility] 2022-01-01 2022-01-01 Outpatient GC_TNC_Lovi PRIV PRIV [id number] [facility] 06:01:00 06:01:00 tt_S [id number] Medica l 2021-12-23 2021-12-23 Outpatient RENU [facility] [id number] [facility] 00:00:00 00:00:00 YANELY [address] 2021-11-29 2021-11-29 Telephone Trudy [place] 1.2.840.114 [id number] [facility] 00:00:00 00:00:00 [place] 350.1.13.10 it [facility] 4.2.7.2.686 [place] as [phone] [address] 2021-11-27 2021-11-27 Outpatient Antonino FINLEY III, [facility] [id number] [facility] 16:00:00 16:56:53 SLY may [facility] 2021-11-27 2021-11-27 Sly Mcmanus [facility] 1.2.840.114 [id number] [facility] 16:00:00 16:20:00 [facility] [id number] ity [facility] 4.2.7.2.686 [place] as ILA?BLEA [phone] [address] MEDICAL OFFICE BUILDING 2021-11-10 2021-11-10 Outpatient [facility] [id number] [facility] 00:00:00 00:00:00 037 Method i 2021-11-05 2021-11-05 Outpatient [facility] [id number] [facility] 00:00:00 00:00:00 514 Method i 2021-11-03 2021-11-03 [id number] [facility] 00:00:00 00:00:00 YANELY 382 Method i 2021-10-29 2021-10-29 [facility] [id number] [facility] 00:00:00 00:00:00 YANELY 804 Method i 2021-10-01 2021-10-01 [facility] [id number] [facility] 00:00:00 00:00:00 YANELY 521 Method i 2021-09-25 2021-09-25 Telephonic ESTEFANIA [place] 1.2.840.114 [id number] [place] 11:04:05 12:53:20 Encounter Lissy CARDENAS 350.1.13.58 Health 9.2.7.2.686 [id number] 2021-09-04 2021-09-04 Office ESTEFANIA [place] 1.2.721.045 [id number] [place] 14:04:50 14:42:37 Visit Lissy CARDENAS 350.1.13.58 H ealth 9.2.7.2.686 [id number] 2021-08-19 2021-08-[address] [facility] [id number] [facility] 00:00:00 00:00:00 JAMUNA 455 Method i 2021 2021 Outpatient RENU [facility] [id number] [facility] 00:00:00 00:00:00 YANELY 113 Method i 2021-07-01 2021-07-01 Outpatient RENU [facility] [id number] [facility] 00:00:00 00:00:00 YANELY 873 Method i 2021-03-11 2021-03-11 Outpatient THETIFFANIE [facility] [id number] [facility] 00:00:00 00:00:00 CHU 763 Method i 2021-02-26 2021-02-26 Outpatient THEKDI, [facility] [id number] [facility] 00:00:00 00:00:00 CHU 635 Method i 2021-02-24 2021-02-[address] [facility] [id number] [facility] 00:00:00 00:00:00 CHU 779 Method i 2021-01-08 2021-01-08 Outpatient THESYDNII [facility] [id number] [facility] 00:00:00 00:00:00 CHU 704 Method i 2020-11-28 2020-11-28 Outpatient THEKDI, [facility] [id number] [facility] 00:00:00 00:00:00 CHU 101 Method i 2020-11-20 2020-11-20 Outpatient PETEVERARDO, [facility] [id number] [facility] 00:00:00 00:00:00 JACQUI 050 Method i 2020-11-11 2020-11-11 Outpatient CARLOZ, [facility] [id number] [facility] 00:00:00 00:00:00 CHU 428 Method i 2020-10-30 2020-10-30 Outpatient TRINA, [facility] [id number] [facility] 00:00:00 00:00:00 CHU 447 Method i 2020-10-30 2020-10-30 Outpatient STEPHEN [facility] [id number] [facility] 00:00:00 00:00:00 KATEY 260 Method i 2020-10-30 2020-10-30 Outpatient STEPHEN, [facility] [id number] [facility] 00:00:00 00:00:00 KATEY 261 Method i 2020-10-23 2020-10-23 Telephone Pcp, [facility] 1.2.401.385 [id number] 00:00:00 00:00:00 Patient Health 350.1.13.10 Does Not [place] 4.2.7.2.686 Have A Professio [phone] nal 044 Office Building One 2020-10-05 2020-10-05 Laboratory Lab, [facility] 1.2.840.114 [id number] 15:32:07 15:52:07 Only Fam Pob I Health 350.1.13.10 [place] 4.2.7.2.686 Professio [id number] nal [facility] Office Building One 2020-10-05 2020-10-05 Letter Doctor TALIB 1.2.840.114 [id number] 00:00:00 00:00:00 (Out) Unassigned, LÓPEZ 350.1.13.10 [place] [facility] 4.2.7.2.686 [id number] 2020-10-03 2020-10-03 Outpatient STEPHEN, [facility] [id number] [facility] 00:00:00 00:00:00 KATEY 640 Method i 2020-09-26 2020-09-26 Outpatient [facility] [id number] [facility] 00:00:00 00:00:00 219 Method i 2020-09-23 2020-09-23 Outpatient DUNLAP, [facility] [id number] [facility] 00:00:00 00:00:00 BROWN 868 Method i 2020-09-23 2020-09-23 Outpatient DUNLAP, [facility] [id number] [facility] 00:00:00 00:00:00 BROWN 910 Method i 2020-09-23 2020-09-23 Outpatient DUNLAP, [facility] [id number] [facility] 00:00:00 00:00:00 BROWN 911 Method i 2020-09-23 2020-09-23 Outpatient DUNLAP, [facility] [id number] [facility] 00:00:00 00:00:[address] BROWN [address] 2020-09-23 2020-09-23 Outpatient DUNLAP, [facility] [id number] [facility] 00:00:00 00:00:00 BROWN 281 Method i 2020-09-23 2020-09-23 Outpatient DUNLAP, [facility] [id number] [facility] 00:00:00 00:00:00 BROWN 555 Method i 2020-07-23 2020-07-23 Outpatient THEKDI, [facility] [id number] [facility] 00:00:00 00:00:00 CHU 397 Method i 2020-07-01 2020-07-01 Outpatient ERGUN, [facility] [id number] [facility] 00:00:00 00:00:00 GULCHIN 383 Method i 2020-05-01 2020-05-01 Outpatient YOAKUM, [facility] [id number] [facility] 00:00:00 00:00:00 NEHEMIAS 750 Method i 2020-05-01 2020-05-01 Outpatient YOAKUM, [facility] [id number] [facility] 00:00:00 00:00:00 NEHEMIAS 746 Method i 2020-03-19 2020-03-19 Outpatient ERGUN, [facility] [id number] [facility] 00:00:00 00:00:00 GULCHIN 523 Method i 2020-02-14 2020-02-14 Outpatient ERGUN, [facility] [id number] [facility] 00:00:00 00:00:00 GULCHIN 193 Method i 2020-01-31 2020-01-31 Outpatient ERGUN, [facility] [id number] [facility] 00:00:00 00:00:00 GULCHIN 187 Method i 2020-01-02 2020-01-02 Outpatient ERGUN, [facility] [id number] [facility] 00:00:00 00:00:00 GULCHIN 723 Method i 2020-01-02 2020-01-02 Outpatient ERGUN, [facility] [id number] [facility] 00:00:00 00:00:00 GULCHIN 357 Method i 2020-01-02 2020-01-02 Outpatient ERGUN, [facility] [id number] [facility] 00:00:00 00:00:00 GULCHIN 186 Method i 2020-01-02 2020-01-02 Outpatient ERGUN, [facility] [id number] [facility] 00:00:00 00:00:00 GULCHIN 131 Method i 2020-01-01 2020-01-01 Outpatient ERGUN, [facility] [id number] [facility] 00:00:00 00:00:00 GULCHIN 825 Method i 2020-01-01 2020-01-01 Outpatient ERGUN, [facility] [id number] [facility] 00:00:00 00:00:00 GULCHIN 826 Method i 2019-11-01 2019-11-01 Appointmen ESTEFANIA KOO Thoracic [id number] [place] 13:30:00 13:30:00 t; CAREY KOO Surgery - Physici FARZANEH, M.D. [place] ans M.D. 2019-10-18 2019-10-18 Appointmen ESTEFANIA KOO Thoracic [id number] [place] 11:00:00 11:00:00 t; CAREY KOO Surgery - Physici FARZANEH, M.D. [place] ans M.D. 2019-10-18 2019-10-18 Outpatient MHSE [id number] 09:08:00 09:08:00 [facility] Results Test Description Test Time Test Comments Results Result Comments Source Pathology Outside Interpretation 2022-03-26 23:58:33 Test Item Value Reference Range Interpretation Comme nts Materials l9geyQUnBPJwcVKiBbWdSBVcSRPxt4fqPOHspOJgOcNsLqZxBiMoYuvivPYeAEVuVfVxh9svr139fZFw f2qeTXNcOvW1vZAvZJTclNLrD055ZJEtVFwdb0udp9JaTYXprCOwx4Y0UIBRdytskRm5yPbzW92hl9S8 ZurvM3noYBMvIOKtR4VwMJ4lARBbJbh9OLU7LMW2NAR Received zNCRsU8VdQL0vOVYgbBGwOEj5a7jdxZirZIGnLTQ4b4qrJRmbpwNzGC7gcw0igMx6j6mhzlOhNDMmZBN naLPJJICoS0AmiMbcGa8rrLl6bThzChkiDFT7Xtk2JT0zwr99ufa0tWpyOPAujvsgRyR5FEdtUYPmozt tQKk0VGlaPWCniZbbEOefCVFwynhpTYbnULYgjWS2CA (test code NtvFNiT0CnYPGbQPqsOANnmga4ZeYsHh3ofBNmmWedKGatz8izf5icfWFlEcm7BZVzVbWjZbymAGaks0 Bvn2yvRPUlaq6oIEC7fLFwhOspd4L0qXJnILVgbBVnwzGuZOGgyj56rAKgkEFnbRSznz8rikLjiZWcrY AtLYK0hVGykwAaLJFspGOuEENfYG1pbYBfOJJxlD9td = 9973) lbfZUYlCiKtbgyhLAJltFngpiEvNa8tlFqrAGG0JUzjC9hdlD7rRuH9CNeuE2oijT6oOWa3JNcnpIC6B FKhhT2xOE1nxknic2esDbCnDK4darunq8ouOfIdGW0dwug2g5wqZGZ7VZwfSSXgWqX1jxZ7UEDsuCUvH RWygJgpGRqpb036RTU9LvCdENIxk2LhD8EcvZxeX97g jKylL64yGFFivLvfaS9ntXjixG6uKxSxVvOoJHm6rb98WMt0swdirRubNHt3moQhZBKwLRM2PAEteRJh CYNnR6g1ssNoFHKdYPJ4AXJduXTlIVIiM1o0tsCsOPS1NLb0twQqKCPkgGCipOWyVWRuFjAqmKZhZRZl HdSlVTNhlAHymSVxgRNkuN5caHtwGBKwfTMumT8gZCU 0TBVhonbzBgSsrWMfMDEbuTNlfl14RYNbafTnsCIvrMvmvXZuWFR1FUFqDCPvHFIzODM8QAKiJiQfcmP tJFfnrZZpNGNoQWWfLMNxEMEwJTA5OHDaTmUbkkCxPXmeeGDrUEDqSNRhCMPsKEPcVEI0TSNeYlTzmvJ oSYzqlXDoZHBuAIWrVQZeFFRxRKC6WVCxBgBqleUsHH xgpTZeMDTdMKezxVOvQGX6P1bppQTeLOErMZqfxCVoBGVsU0esaLFxAZeiXCMaoBTeBnhhDNAexDLkDf GkL2umFBWoNxOaU9OryCv0BCLlUTVaviKzsOUddWcqfFEfLGI1YQZuYNIjCAQpQDE6UCVnLtDkwoRcLA rtsSZvDUKfZTFxCTThYSEzGMF0UKMmTcXtuxFiEYcpo TXgNIAlPCRnGHJkEAIbOQQ4FSZkQjArvfNyFNigxRAfGKWbBVPmHXOcHOEdJLE4ZYTxGiBbfiNkFZplv AWyZYVwQVzquXHvNRN0H3eekABbJOWwYEjrtATzCLLdF4ymjMGyXYmzJCOxqWFtAvrcIJMxxXOvMoKkT 8wiKSJrGcVgL7EidKq0EgYnZJVvsbYqvLBtuPpbqOMk EFY8BSHrPGPkMZFnVOT1SACeKaJdxlYcDYrfxWFeLVYmRQNrRXGrBGDfRUJ4QTCcRtYfecSmWWlzwLPi QNPzCFRyANTuYLZeADW2DKQtGtTzqlOiEZadcWLnKVGaUXUcAQUuOFTwFUY4MOZjMzLkxyVqCBpyfBPo XZInUBqyjRAqAHK5S5umvSIrXYRxVUjtmZDrJJIyK8e vdXXdOIixTZJjnVDjMqqcUDRzeXTbKaQwD6lvGDAxQzVmE6TraKb9ScThTXUwezFyfP81Bofly3HkKVJ uUFV0ZFtxSEdfjUlnsUQokhhaVKyrwzMuJVwafztrMPUcOTsiH7gjDdAtSRKojWqdVKgha6StHPTdRPW gXxwhiuZjHCJlDPSoSEZquU0zUqsiQ0BemX8sZWprJf vvZ2tsFYUmx9HfcN0oYDufaJCyawalUOzujqDmHXsttomyNVObCDhaK6anPwXoTJBgxKpcWKglt4UaGW BcMLRsFuszulVzUMo9fjDwNAJuyHaxnOUbXJlmypFriZviy1FznxDsdFlxNICrYWg4ncAjfcltlZf0nJ BqiUsxLFMrqEbpoO2dFtCtCdSuCGpusTGxzidrWFzjn nPiWRszdhmrZJHpGGfsV2mdNdTxKIIruOgpAQkrj2RhEBExKZQjCdwtlqNfWBSoY12suGZkkTXmLZTbH HlkMOPnBUNsBiSswRFqLiQvIaGmbOkakQtmMXfcMhIrIYWyEQfhV7swVlTeV1FlHQCdEoTijYMuJ6kfN 2UxsSboDHAfWAongUCeEPDswKWiUUA4fZItzlHxtWNs hVFpEXBtSWhyBGV3jCCvfsphyEWkruusRYtmhwF3WJMaEOxhJDFaOJZtUrFpaHCcOeLvMlCrtEiglIhb MNhqWhZmTZNqWYbcP4wwZbIqZ7KzCYLcPiXdYqKOJBEflGEwUEhpxRHjsxtwTFvqmjGtOClhwaghBEZk ZGnoZ8yhSfQyZBMpxUeyBWxoi0FwUTLvHTYxXrxzgpU lVWc0xiQkWPOjrAoglO49Iolxss34PVAxu3vlCEAlI1OufJIeTNUdjTXoTDxsDCwjsRBpDNDiEnitTBT pwMNmJHGsQWvllMSzIQMbDbNwTTUbsJHlRFUfXSEhjVSfUJL9L3i9fiUrIWYxDEq2ggPvETOqYlEvtMZ sISQ1DOr3BbamdlF6wBYrL7s9XptblmGyXYrkuOTkxr 17QMMthrHccZIitMvltANkHVQ0HXOyBYYaIEUpOUW5HJDpPnNgobMlDGdoiBXtLHAmGYAjDIWrALQxBN E8QHQvTgLrpoDzRTksqPPrDXXySEYfLOBgHELpCPA9ECEqJvEkgnCkJRkokOLsAAJeKXHkXILgTBEfJE U0ZIBwXbRpzwIuGGxysRHiRYKhYDpwxMAyPDH0H9uyd TRpLUQiIJeqgHCjUPBsA3nehTJdTUfxZQPhqXSvIaqfUKCtdOInKsLmB3fbPIDsIqAhH7VuhAn8KUUvF XAskqIfnOZuzVohgGZoYVM5VHPvGKQrFFRzQAS3FVTgQpRcsfLzDUpulJUfGBBmSLNgSPQtWUAnRPA5P KOoGzIsowSzYQoaqXIgXWSqTJTkJNNpETEyXGG8GCSj XkKuavVbLSzpzWLpOJEzNYKsXONiLUEeKNL6UAWrRiOfjeEuOFxltZCdLGNlWIjaoHBfRSA5H1qnqPWu ZZJpVTlvrRZqIKNuY1pftPSiYAmnXRAyuBOoCvgfBQZzzEDmFwMgB5juUUMbKbGzE5ExeIl0QsVhCJTs mvGbmGPiuJvxwRDaQMR3IEPlHVKyOQTuAKC9MKAzThH ueuFxGGxoiFIzZERcVKAbXUDfJQWpHFK2DRFaVhLquiAcCLaykJUyFBDvOCNlEMOeGWHcMFH3HFDzToU bzlZkTVnwdSWmCMLiJCBcMIBkVEUbABC3QDGmVhYbgmIuBWxggCUrILUyVXrhnFRcYEL7D0djvKVsMIF oGSdrvYNjRYGeU3sgeFWtFUcdFFDzsMNeIsyxIEYzcM FcCaYnQ9hnXNOiMhYvG0GhhCl4RqMcJVJbmxCzaX92Dpkay0LzTOPlYMI9TRdjQOulaGnqvNLvxeqwWT dhqdG8DRUfWMypHJMeNXDvAtYyjAUlUxSeDjPxwOuojSohRIgyZeVvDCKlOEkiN0gqXpOiQ5RdHUExTa QuXF6rB5MoUhWpCqt4FYbxMJQ5USDUACIuSSDVY4SIC enxXINPA4WncGvuhO3aJtRjXiTuCHdsSK5lDUVgP7qajFBoESXhSODcU2erZpIuoP8ghVleWJnxOoYnL fJzMZbrvBTxoDbfYBmoNUWxypVvnS01Esxus0PcBZZaRIX4HBftCBrzcFcfgZFmdzxpCBzjsqF0JDCtR WluXGYxXGZzMjBcbGFuZzEwMzNcaGljaFxmMVxkYmNo AVNvOCntQ9eoGqDoS4NbNVWtDaEiBPRxQj6fSLCiNFIhSKhoIKIoUIKpSlNpmHAjAlCoPlPzxZvlxPcq RVioThTuJMEeXEduA5ytBnNgT1EtVVUvIeWugQLiB9qnB0AvmMlyCHPxROvvlJHjXLVayUKfPUG0dCAo htRkfKmxeXosxS4tYhHzHtUgCUolwCHckliyBHutmdG rGQbzbivqBEOiCSuwB3jhRpLuMWCjoZzgZJvih1JnJCSkUCPdIsycylTsEAAlXMBhIxVpOlpcjHIofzy xRJooyeUiFHpgdemdQULpGXkiG5ntZlBgRDTbrNtyFMdiv2YbLMNoFJPoIemrvgBzMIb2pjIcCGFkzJi mlX51Wavare27ITMtcyCxw4PkDEIzPWM4ETlzUVwdzQ whsKXrtbpfLVgfafU1QSLwRFitSBGvIWZhMeUeoRFiWsHbGlYlaBxijSqlOUbxYeYrUTXkEPnwI9hiRa FcZnMyMFxwYXJ9 Addendum 1 y4ydqCQoDLXvwHG9XqQfYVTod8vct9CtlKFbbWTsYLqunTVnoiCzfr81kWY3gY19VO2pBBUvBmT9JQFp iyO0Gin4YCBtMRVbvFOrS909h7mvm0jonkLgjZR9VZGeYZYpZ0FfMV3xTZRqhYDbI53fjLUtXRI1WMCy URTpaFTiINEqAOS4LQUbzAVnN3lsLMKeDV8skwqaSQh (test code yPNtuUQPyzPI3LJTpsSNxS4TmLIGhQYgoMCCpyid8JbFfJx1uxYNblSfqFCblJXXsZLZzAJcvYBHoTvD oU6YaHM89kRExSGWrFXNJMWTjIPJ7ILq0IBKlWIWPAxxkYMIMMW1EY7FhBFHmXPRDFXOjc1ebKVF5XIF uk58eFOPsPj7wWWZuUNfexZHvNRRdUSkrTNBcxEi5Sb = 35) IryGtlToZcMTTzPZYLeVTgigeoef9ilOmxrksny2EtM4AwFununPR2BYjlIufjWEFymXawTELbNWKnOR mdXNrxrW7mDTJoLYYqqTSvOJVscTEgVLKkz21eqpweIL2jMBDpfsQcCP1qKHYxDYAgdjRAnnApALygZ6 0djcJ3KHilHL74zYQcHTSaNZYkviofMJKnuREkCMpnV XJ9 Diagnosis s8kkdYMrQJXmuIX4YsOwVQCjd8hsm5FvgLZbjXQqSTmqpWIkzpRwuf70uVZ3kQ04PD9tXCLiSkA0WWOh hdQ5Hzj9QSUiFGBxkNSbV823g1foq1gpigQhaBE9FNWpURHwI8FzMW5lCYZblIVlO64apKSaDTN3CNAj OSPfaRQsCPCaGKZ0CUGqvQJwZ1rqPRFfVU7stzjwJJd (test code hHBqvALDfaTU1QIMzzFMnS1JgJWDhCLhgVHHzynd2XhXvOr0shSVgeMznTKvsRPZrFVCeKIduHWZaUtW aD3OrFB84cGIuEDIiEQEWLVWrHHZ7MLh2WGHcVYMKEzwwSWBRKI4DM1VvCVCfMVPTJIKno6qmPGV3KWZ vd28mFPXvKt1sYXGdPIxkhWXsQJWqOOfjCNTmjAh9Az = 32) JcxXvtWeIxPORzVUczrxZzjM6ym3l4fEIsUIMjrtKhcrvnTK1bm2YcWAFuH44gvhMgvEMeRRCqZ9Nzm8 02KLVkdvrgoYKoSrSxLioxXdAiFXnuifQcUyCeGvUjeVsrRAJ6mv1mMLktQmxsib3jpTYnaZdtfUsfhV xpjBsnkiSkddFachEaB0WpQAPdxHKigCjhPHMioVvry oObamHqhJRgszjnfWQfIE48ODSnXtYjRMDhEI2eTJGba0KlXKBitx6bNP7tAXAgXDHhq68tPO79IZZmQ XofPKEmHZMvo5Lfu8a6VZPsOgYmG84oNOXojeOtiGWyvCIkOYPhiE6dgWddqEZmOF7qEPHfqN3roIBdl 6LdNKFocyY2tT0ustKyspNjEM16ENlqGkHyFlqtOJAn SlXiABM7oJ2tYE7zwksofoJfMXYsLWWpi6NkwEUgy3DgAOFjkmNXzqQmjNPfo2ZgkQSup82uuEhvRa50 ALkjfXVld5QkEurlWKMdmTQyFNvqFyGySVVjPHaktI47KeYlXv2xXSZsOE53TFO3TAGuaV9cq6z1DDKh ctl3ZXGvHSiomWyyaZzhOMPobZWakHXjNLPjv9zpJoW zOHDrb02xTCknEOIsJ92icKCgsCEfAmivaZSyYCTdpwJAKxLKrSTlapqgrm2kiPgcppaii4KnJ5IiMxi bnOQ4QWjoIgnbVULjmFLdCMGpCSLbNQDaG16wOXFuaIEzRxlfU3lqsQE9mM9vt3g4DZglaIJve3Drc2V yACRkSSMeIHJlNFFmpG5gfOqyJERalbvrSSQsmCFjSI BhcmRccGFyfQ== Comment y7lgsRXsCGUmlBJ7RoYsBFEaz7ktl4IcxQWaaVJyRAgmqAPgcuAkix75cFL4oV03YH0tSGVwBaH3IUMs iqW0Lcm8ZIFzURArnGMmE118m2lpd1uhzeIehBB2qZboSKHvpdbkBcK6CTvfPWVgejqqSYh7XImsICWk yYC4DLTukDJuA6EgCHHmBK1cqon5FYD1PTpuTQGyLcE (test code 0MIUzxHCdNTMfdPweQAfjx586DMX8FoFlDQDizoAcgHnwjH6jNtAgLBVnEUfJoYJiuYM7BKMaaB1vaE4 owMdeiR9lxFZidAQujZOqpBUefhEov6wqveJ0dWE5KBOoTCAuhYQvrMGcZKJwgAAwnnLcbZKerjZvDIg ezFi6UAKwe9YjDsI0PE5fFREbdhibNUekiJZwTPQmAR = 9835) I7fKQaw5Ztx11jCEPXFnpjITERBNK9PRVvCQLmcV7pXTKrk885cIEvlYLhpYTpYIZ9hK5bUBCPTdYyTQ KROPSxQUUzVQW7z7PiFehXMCLvXTZiadYgZ5MgBsOqBQUHPFT8MMzzX1rdxDcovQCadpGeW8EkQBJxR7 yvkj3jlGNeRPOcyXYtMTMvjrXGdICnu1VjivEbjIBnq K0kcN6lltNkjdKivMocs1Upg4DaDOBkLU7dP87ucBDsS9BvndvqTqW9QFs5TRfpRBDrNSgvWF5aqK1dC PCoANZdIDVflPR3FeSRiVXqTOcyXdDhJJ22eQHwDYHlMAbba7BiwlNrmtKqiLHdcgXzXAMhWSQ1rVCfW U9rRYGahvixaaBglOVgq3HpVOW9rIUhtMUuN0GkcyEe oqCcJMXqDV3pU76yamHiQ5IoVRYnyVDvgW1qVWQ0O1ccQLSsJZ7qYTR3LQOif5Lyzl05ojGvLDwod5Vz XGMkz03mErApIR0hxkoed55sDCgeqIgfakLhL0SbahFtW1gxafseia5uCQCdhbkuDPZjRgX0MAP5Xq0i xSCbHDDgpU93za5kmQO0z0MpRB3qZ0HaINV2QJouXAS kzwFRv29uadUkNJIfrXYfxzOnYQWqndGkJe8oOSLgyZbvcUXmETQch1VxyQrcvx6zhDQdVFXxupagCVF 9 Disclaimer j9hieFFbFUSllWCfDzOiQNYtNDMgr3vxQGFguQKlHoSeJfYwCoDtZwcmxIFdHQHiFxVua5rkj368kBHm o1mxSNNxFqF7oZJsGYVrtDVsV667GRXzTHowx1xzz2XrVSWulACvm0L5IOXFwqwcfIk3jFyjF25tr2E5 TeftE6lvDFMuBSYzB7JeRA2oLFWmBkz0QHU6FYB0AST (test code cXWUtK9LhHB5mXRYjmEIaWFm6z2nsjRhlMOPoWFI4g6agYSfpquKlLM2clt6mjLa4r6nkdkEkWRMwNON whGDVWVWuA5AcwGviGk5ahGs0hPgcTfvjSTC4Ywc1XM0wrk49uxx1rUwuCJEjnsaqTlF8AZtzXVOymad qJMe3QJmxEVNxkAN8PFXrvNIuW4ZzMOCwXY8vxwy6FS = 9844) S7EXctDQNjZjR9GHNcaBTjTNUvwSyaYOlti797SCH0SrSiWW4aZ4Xkx7G1uW8axIYcHGSzeZUmFzQsBJ Mxit1bmKXwENnhm7QlUTH5ojI1kMTawCXeROEuZN71Obgcl5VuMkeyUQG0BINgeiNrm5Rjy0vnSjTjro FnB4kpB2DhAZUeQYNuUAFoJhUdfgXgr6Pnd1NacQPxm Ag1v3dbECYiMYHizZebl9dwMWV3WIRpU8R1bFHhu4ycYLuqFTEnoDU2opT0QSHeoRKwQ8HusF2mYOKdK V7cjyi9f0qcNNS7XHwfCGVmUkZ3wvG3WNIrdMGsWNGatVtaPKuyc368XYU3LgBmNPAia8FqZ4UgqVphT 49ryNvyJ15rHFMccLteeA9duNdmkX2sOtKbKdYmGVls kQmziXMbpcviUCnfdkO8IOkddgovNWSfPLzhY5rbAhTkTOSdoFhnBYpwj4GsDAWuDBFtHbpdirL1TFWT s29zTYVmp8NuRXFqoO2hwYTmLJhviaSivJM3IGqasgDmTuTqeiJoMTIazL0gEFNnHC5fADRvhqLorw7w uwJtLXUmSOTlX2OnsooezWjazoJxVGPcti4gvnPxKOW 2ENBGXQ0BOWRlIJMxf05rBVFnzXhmlG7unPBpcoTrXRNub4YmiG8pzLXAJWJuM6nlRN2cFSbcd2IunLT klQBiuUK5PDZri6TeLbYnusFxtJDbxPCdC8XysDidI5deRBXjXMPpzqJfbFAjv6VnPYHamYP6vGFaGU2 LEaRFx98zGEBpEGEImqRmACJgcGzrmHG0vlK6yK0hSd VXYvVneCWkxEKtBcuyUTWjk779ic0vwhN8JRJqXOMzvyuxz5EvRYMbISFhxE43GZNjEHZasf4kkhputA ApqqFmH6Uejbz2bZ5jAUBkOLtcKXLlBFGzTmGhnKWhYbEtUcIbkErkgJcjBXzfBuQzPSQwWFadQ3viMe FcZnMyMlxwYXJ9 [facility] Outside Interpretation 2022-03-26 23:58:33 Test Item Value Reference Range Interpretation Comments Materials Received (test n6pyoPSpWEPijELbSoZh code = 9973) IKJnKQMjx9qcNODtuDJg ZzEwMzNcZnRuYmpcdWMx DFRwBnYzx9dki925tIJt j0nrRMNmAhX5mSViMNIf gOPnS924TCQiCBnao2et a3VoXKJgnLMck3P5KMZM zjjzzYn1jHtsE26qh8R8 EoxrC1sgHPSuTMUtA0Hi BK8fISAxWga5ZIV0QXG4 VVLfBOPwU1CcEC0hOJBg aMQmNTm1s9mxlYfbLVAk MUU3r8pmSFhcrpCjGV2v em0zoIw4i5ecbrWnLGNs AQSeyTJKSPXhX7TicGyk Aq3nzPw2aXvtJwsaRYB7 Cgn3IT4uua76bng8tYmy XHRbabkpUiM7ZRolIORe enzqSIa1TVpcJFLpeNyr MFxtYXJncjcyMFxtYXJn pRZ2KFTsaTWlJ8BqTWGb SHkgGZQvwps2ViBoMo0c fCZtfBsjRNjcb3gvh5lm jXXlUse7JBRyYaWnUutq XZrlf3Bbt9zeKIDxhs4w KZH5gNSghBbuq2A6oUSs FTKoyBRiclPlMCYvgg58 wIUhvJQbiWHqcs4rblPu aAYrpCBzSEV3hBUyrjMl PACdzCTtDKOvJW9ziVRe GRTrbN6idkquCWZvJvAf nohaVYEmbUcjtbTbUm5h dNkwNSP5IYheO4budA9g RoB1ELodN8pcoJ3vPFw2 KEacuTI0ZMQrpI1jFW0d nqpbt1snIoWbDK1imlku f5yeVbOzJZ8abhg4x3tg TGM3DTzhUXHjUwS2ejR0 NDBcaGVhZGVyeTcyMFxm i660VAB9UnAoIMJzm6Vh X4VazUfnF41nhZifX12f AIIvjDhyuB5dwLrrrB1w MxUnBgYaRIg8gz60OTu5 lmogrWkzNCx5olJbGCRd DXV6PGVhnEHqBPRgQ1n3 idLcZNAbVVA7SMVquMPn IQXfZ3u8sfGzNAM3OTk6 cnBhZGRmdDNcdHJwYWRk YjBcdHJwYWRkZmIzXHRy pSDsjEQwcHSguU7zcXjr JHYusWWqfT7wQDU8SNSi cmgzMjBcdHJoZHJcbHRy ow30SWLrzmLftLTdeUoz nVYfWKA8CMWcFQPjPIEn IYW5ZQEmZvEvaeVtAUyc bGJyZHJiXGJyZHJzXGJy JDW7THQhPyYahyVqPAaj bGJyZHJsXGJyZHJzXGJy OCR0RZWpAoSbqnJeTCkn bGJyZHJyXGJyZHJzXGJy IQS1AKLzPjJgsvEdQRjw bHBhZHQxMFxjbHBhZGZ0 H0rxjUMoJFHsYQdldDSe LBGjA3xmcVVwTEooXENv cGFkZmwzXGNscGFkYjBc C4cuFLArMgPmG2KxsNn3 MDAwXGNsdmVydGFsdFxj qCXxBHO7SMCiONVvDTDw GIM1KOUzZqFqjkJpUHet bGJyZHJiXGJyZHJzXGJy MEN8AHDkImRvbfSqJQck bGJyZHJsXGJyZHJzXGJy GPI4ZOZjWhDspwGqALdj bGJyZHJyXGJyZHJzXGJy CQF1NHNcZiTmorZoPIyj bHBhZHQxMFxjbHBhZGZ0 E8uacAIxIVXiZEnqhXZo JPSxN9dmfTFlGYjyLIYt cGFkZmwzXGNscGFkYjBc U7caCHFcSlPzH0YupWc6 NjAwXGNsdmVydGFsdFxj aFIwWBF3PRFaNEDpKRMq HRD8YDYySeWaxdAtGJbf bGJyZHJiXGJyZHJzXGJy QTA0CVJeHaWstoXdINrn bGJyZHJsXGJyZHJzXGJy BGA8HRFsFqKjekWbBAph bGJyZHJyXGJyZHJzXGJy LEH2EHDwBbKirtYoPLxc bHBhZHQxMFxjbHBhZGZ0 S3vztMRgVYJmEAzerXPn WDOcC2woeOUrRPkfAGVd cGFkZmwzXGNscGFkYjBc Z1ysWZJqYiYxR1AuzIu9 JuQtJESffvGxqJ10Camv h4AjGNEsGOH7JZumZOft bFxwbGFpblxmMVxmczIw UOhmnvgbJDImBIvjF0ce JzNsMFEboWjoXJbgy9Tn XGYxXGNmMlxmczIwXGIg BWSvHDZknH2pRwfrI9Ym jJ3aHSuqGxkbW3ehZQUp i9ZclT7eMDiukTLsmifu MVxmczIwXGxhbmcxMDMz QIfiN2rrYsZeTFHvnAxp EYfno9StPSXeUZUzLaeg pxKhMXg8uzTeZRBtxOww hQEkGQuiwlLotBjnu5Bh tcZjwPazCNEtCKe7qsTf xbcweFn7lNEfxLqwWOAg kRwcpR3pOiNpWyAlYKvq bGFpblxmMVxmczIwXGxh gadgZXDsKYltR3kpKoHi AEMqvBxmSNprw0ScNXRs PCRfRqitjhPoQAIkP99i bGVjdGVkXHBsYWluXGYx XGZzMjBcbGFuZzEwMzNc aGljaFxmMVxkYmNoXGYx BIsmD8caApKkZ3TdYXEd QxGwnLZoA4rhI5CayXxn YXJkXGludGJsXHNzcGFy TVQ1iMIbdbDvxCZulTFq PIAuQPcxHHY8zRTsbzxw vICirgbuUYmmxaC1OTEg YWluXGYxXGZzMjBcbGFu ZzEwMzNcaGljaFxmMVxk ApSkXAZcZHbmH5cjCnZp G9TkXUUeHiGuCjHSVAJn aXZlZFxwbGFpblxmMVxm czIwXGxhbmcxMDMzXGhp B8lbDjXuCDYraLufHUab t6OzCJQeYXIhFinxwqGi CEj0brJpOFQixGipdV49 Snuigw27CSQaw3eiNVNk E1OwqWNzWYDexIBrBAbf MDhcdHJwYWRkZmwzXHRy cGFkZHIxMDhcdHJwYWRk ZnIzXHRycGFkZHQwXHRy mQDxBFX8Y1u0gaJlGVKu UPi7feDiYMUsDeLvoIBm APW3MJj6MuafjlI6cCLm V4y7FeglzeEeATymlYAp os23AUHarfMlrHLqrNrl fVTwKLL4ZBRuZNSbUANo RDT8UTDlPaRguuNmAGzv bGJyZHJiXGJyZHJzXGJy WIP2NBKhRsDdjjJeAVib bGJyZHJsXGJyZHJzXGJy IEE1CEHoMnFldeOiOApl bGJyZHJyXGJyZHJzXGJy CXN2IQQvGmDswaMwJPic bHBhZHQxMFxjbHBhZGZ0 E3okqSSjSJGlMJuzyEWx TRIaK7ourZPnTEsgLCAo cGFkZmwzXGNscGFkYjBc P7rjHNPdXqMuM0QzkBz5 MDAwXGNsdmVydGFsdFxj uSHuFFI2LNWsWASdZABa SMJ1LWUwPcLwroVoMCzn bGJyZHJiXGJyZHJzXGJy VLL1EPNiZgTpsoKqBNyd bGJyZHJsXGJyZHJzXGJy ECC9LMPuGmPgwcKbEZyz bGJyZHJyXGJyZHJzXGJy UTR9IHRdKaCzdgWcWWan bHBhZHQxMFxjbHBhZGZ0 T7ozrSObHHSnDDxswFAx DTFjC5wmwNRqZRmhSCWk cGFkZmwzXGNscGFkYjBc E9wfLZVoGaRrS5KfjTm6 NjAwXGNsdmVydGFsdFxj kPJaAPJ4SAGiRTWhHFTy ZHP2UTUjUmNelxQqIKwm bGJyZHJiXGJyZHJzXGJy MLV6JGUdCxWwjyKdPTra bGJyZHJsXGJyZHJzXGJy HYV2PAWiBdTvvmQsTJyf bGJyZHJyXGJyZHJzXGJy PTF2NWNfLeWsmiYcZPle bHBhZHQxMFxjbHBhZGZ0 G8zybLRsKMHkDMwldYRz YFQcT7cxyYGpLNjzQNFp cGFkZmwzXGNscGFkYjBc V1fmMSFpJjRwK8RxeAl4 KbTaYEUzfoIxxZ22Aqgv z7HgGIMxUPU4KInwERsn bFxwbGFpblxmMFxmczI0 XHBsYWluXGYxXGZzMjBc bGFuZzEwMzNcaGljaFxm MEgnLpBiBPPpCYqhA6rd HzLsC1XlOWIvPnKmLK5g C5IxJrOkZzc1ZXhcVNV1 JEXQWRGeJBJWP8YOBawo GONNM5BdbVppwN8fBpRu QtEmOUeiFS0oUVJzV4kh eGTxBINgXBNcU7bmFhYc zY0skIjnALwgXtUnPaSr MFxsdHJjaFxjZWxsXHBh ylQquH35Khyoo7DwBTCt STJ5GIsjCJbpsPvpoREe ycxdSShwpyY3MXNuNUjd XGYxXGZzMjBcbGFuZzEw MzNcaGljaFxmMVxkYmNo PTVsTKkaT8mhRoAlR9Wu FXMkWdOnZBObXx8oKPCe XHBsYWluXGYxXGZzMjBc bGFuZzEwMzNcaGljaFxm FXosRpWcHWOoAXisP1oq HqOdV9KhXFArVoLsuHYz P5ikX0HqsEvpYZBePWaw xVChXPDvkRMjHOJ0hOWl zoQnzAhbaFondM7uGnVx ZnMyNFxwbGFpblxmMVxm czIwXGxhbmcxMDMzXGhp H0zrBoDkMEIsdCjoYHsh a7IlDWQbMMLjAmwltrAz IDUvMTEvMjAyMlxwbGFp blxmMVxmczIwXGxhbmcx BFWbONguG6lzLwRkRRIh rGsvNVfid1BoTITjAZEs JtfwqrBwQVg0ijFaZAEs eDezbD99Nlnomk02RQQw zoFfp8HsJZGgFJQ2ODnw MFxxbFxwbGFpblxmMFxm biZ0TSEuABgaNICyGLCo MjBcbGFuZzEwMzNcaGlj aFxmMVxkYmNoXGYxXGxv E7anJmAlJhIoKWenWJK9 Addendum 1 (test code = m9qxeWNzEKEbwSD6OeDc 37) RUOxn9hsg6TebPCviEXm QYphbHHbxzYjtb11hHT1 kP73YH6pZSDkIrK5CEBd ehG2Xcy9JGLiMZVupFMf S965y9ijh8gzxbVrhWU5 VNKdLLYbR1QwYQ4dGWLh lJNzI17ihRBgWAC4DOFm DHPlbTQpEYGsPJF0CGRk fEIrH3wgDTZkBE4lwfah VJfkDBshTHTgeVD1KRTi qACzO4KhGWRoKBvgWWAy alo0RkFaXk4kkEZnjTjg MFxwYXJkXHBsYWluXGZz MyHcJ7NmOK59oZPeAOPd FWFISSPjDSG4WFn1DZKt GNRIGfdaUCTOQL0PK6Tn QNBbIKMDZXRvn9phHGY4 CVFcl56zSBHeCc3tZAYz KTpccGFyXGNmMFxwYXJc gRx9MxSuwNyaCnHaOICf ACKOlVHgbbgxqa1ffFym qscyp3WiU6KiOgszrEG7 IHgyOlxwYXJcbGkyMTYw DURkDAigELprsQ9vOGKr IEJpbGUgZHVjdCBhZGVu e93myebkTK4uOISbftIn BN9kSBDvWWByorCKteKy RVsuH94zfcB9JTbpHH53 aWZpZWQuXHBhclxwYXJc cGFyZFxwYXJ9 Diagnosis (test code = j1ykkEYcWMNyhXM6ZfEn 34) LPPrp2naz8NjxWJpvGMw XDeqfHFbgaQoyr62cZI1 pT69QG7rCUWmInM9AAAg moP7Vxm7RBUxRYHidDQo Q253d0kpf5gnluWytDX9 XHLcGTSmT0XySN3dBRDt mWJmT92eoSZxXWS9TCWl GTSwzUDeXQVbGSY6VWLg tGKdR1idKDPtEW3kyusg ZJwcGZgcIUBhqZY7DMQv pSEtF1XaNAQlREcaSOHe ihi9XnRhTr0ljYRgjMhh MFxwYXJkXHBsYWluXGZz PwMqW1QfUS75qOOrBSIa GUWDUJXgGPF7HDh8CFIy KMBMMmcwGORUPB7PN9Eb VYEdOAOYGDUqv0mpQEY4 JKUfq77sZFAzGu8gKHRl KTpccGFyXGNmMFxwYXJc uWu2TsVoaQprQnIgJDCx RGblqdKbbS2gj4u2xNAt YXPpmoSqshzlXX1ho3Ni OAQyP90oowStcKPwSWUd M0Pmk815GNKazzzyuXPs NjBcZmktNzIwXGxpbjIx IuFsVrGgeRcaBRU2ol1a LTlyRyuhbp8gyTNgbAer bGluaXphdGlvbiBhbmQg mvQdJ7WtFBYbuZXwtKjb ZXJhdGlvbiBpbnZvbHZp powzoLUwXZ90LSCoLlNf QINvUG6qOQDtu7EfILLa yc2tNC8pQXVfJDDgj56g KC52XSDfNZovIRIqCLZq q5Yji1p3BGBpRpYoA23x KFBlciBvdXRzaWRlIHJl eN1xjUlevWDlZF4zFFTn mC3fxXSjd4SuABOjytR4 hA2cwnYdexHlSG89FNmi LzEpLlxwYXIgUmVzZWN0 kX1jQZ0zjfyilyNfVFDq AIEdz6AdaUWsb3YtYZWs ckVOtkDjnGRgu6IpoEXs f85uoLxqNz83EHphzMWg i8RwYvevJMUndRDkURij MfOnAZAaEVsbhL36TrQj Ru7wHCWnUJ60GKL1ZIRt mY7db3s5FKXieqz7UVSr SHlhbGluaXplZCBzdHJv tQSlAHNfk8jrRjCzEGEd b92dFGktBZIkC17hiODl dCAjMilccGFyXHBhciBD LqVXbPUxkcnmzz9kvMno yqmkv2MsF7LwVxtuwKW9 IHgyOlxwYXJcdGFiIFRv VLDhJAKvM38iUYFtkXQy MabiY4roxJL7fC9yb2h4 VYciwDMrf4Twe3AeYSIb HABmDEYoROEdxU2smYvx XHBhclxwYXJccGFyXHBh cmRccGFyfQ== Comment (test code = x4veoXWhZDTupDX6ThCs 9835) GKAco6mcs9XjmIJjqCTf XNqyyXSzawLwoa80nOF2 sA02RO7sHKBkPzF1LCDr saT7Jmt7FMDrPHYegOLq T862n9kkm4vwtsWemSJ2 xUfzYTWoxlszYzM0KWnk YMThgkysRGu6SLafOJUv tQK6JLPpyPFnR0SjBSZg PW9spet9VWK9CJcuCIUh XqO5SLPaqNCpOZWnaQnm BSwpd600VSQ9JaZuWOOg tmTtmChsjO5wVrKgNLMy EVrKmPUkpSN6FCUfsO7f mE7agXrgbS4ivWRtiVJf rKRnoALudrQzg7bwszI0 gXM9MFOuGMAtyLCvhQYc IGNvbXBvbmVudCBpcyBu CHfpiTq0JGKfk7VvBnD9 CI0jTYXioaepFBfgvRBx MSWsAEJ3iNTti5Btu92q XABZIimkJTOQPIK4PZIn KYLbhQ1qVFTda385tECc lPFyjLSaUHX6iX0xEGZU SzEsIFNPWDEwLCBmYWN0 v7JzTwdMLNHgPTJwvcSm I0YmFvVgJOYWXZA5UAgb F0qbqHduhEUdmvJmM8Ds QLRyD6iauk4onDBxMFWu qTJaYFUnfaTXhKHjl6Oj xxPuoLOvpD1ryJ3zlkLz jcBudUzsw6Eds5KmKMVf FQ8fK16qnUUrS3Vlxwar KjO7NYy0OZxdRKRhNHqo NE6czY4zVGNjMEWoPAZv iOW2GvYFwVIpAGmxDpEy LY25pNWbCEQyJLbnx0Yy cyBpbmNsdWRlcyBhIHJl MMU0nFDcNI4mVWXlxqli ltOowTKok2VqMLZ2xLSn sALqZ2UwdnYpbtGwUWOh GM6eM98faiLzP3ZpHRHc jSUosJ8iFYF4Z7zhTGLu YQ5xJYZ1ZUEum0Cbzw51 hpYmOMstg1WlTHZfy07h EbVoAJ3mmhdcr38lUXnm uBjlpwIcY8CcyzWnU3nm ipuioa4qOJYzkfudXMGh XnM9DAO2Lx3ykCSnXZVs vJ63mx7vzHW0s8CaIO6m R0DbOPY2VOqgZKExtxSO j06garVgJOYnsWQmgjXy PQCiltIpDk4sUNAqsBgr cLRcDJNre3OomLusps9o cGFyXHBhclxwYXJ9 Disclaimer (test code = d4zkyZVxHYJbzJSoKhGr 9844) JADrXYPsl1hzMKYxoEUi ZzEwMzNcZnRuYmpcdWMx HRAqSsEpn2kgk475bNQk e7coOMBeQiH0oMHsRRVt kQRbB453CHMyHCyjd5qh p2OvBZVgdFJym4Y6BTSN xlfslEr6bTzoK82is4F6 VbxjS2ngZAFmRJKaM4Yt GW3fKEOeJkc1QQG7MVH7 JABpZAVxZ2ZcQF5iSDNw oWAfYIe9m9tfcSnkJFPx LKO2b1zsDImhzyMaWS5v gg4lvSx0m6gzsqRtZWVt KQGmxMUSLXOxZ7FvjAyv Gn6jyYl2uFseTuhdRYS0 Qpu0ZD0nuj81vov3uSvs SXKbioppIqM1WBgvLHSk jxcwUXb2ZAafVRNpfSP3 DJZbbMNeO0NsIUAvPI5f fpy8SEJ9FIzkPKBzBkK8 NDBcaGVhZGVyeTcyMFxm r975USV1JkRqZZ6hI7Dl i4L1bQ6hfPUgCWIwdLKq HkKgVKYkrp4jgYYwTQml m0XhYJN9bmY2tWDdhPNa KEBpWQ15Mkeei8ReJlpd TPB8EDLqzrFyb9Xzb3kk ZoTztdAoL2tfX3NvRXZz NFLaACAlWxFjzrMdx6Pz v1BwiRXkbPg9p5qnOYUf IBJnoWlrq2tgNFF5NADu U2B7hUQcj8paSPkbWLAr zBM0kpF7FJMurWBkV1Yw hG8nTYCrFW9ycwg9m6ga TZG9TFygXARhYsW0jnZ8 NDBcaGVhZGVyeTcyMFxm a647ZUW3JnNjYBYom9Yy L8NhrAogU81kfQfzM13v BGFkzDndoX0vxAzeeJ7c ZjBcZnMyNFxxbFxwbGFp vaeqJStgsjI8DGbabfqq SXGlLVneL6ujSqMkBSIb cQcfGKgvt7RsXPOhHLQu SexrakA9VCLUu61pNYPi l1DgORMqkA1nbVZjZOnf anQutNT1CUbpjoRlGhFr rsKhGMMcyY5eZNAzNR6f TULlqyPzsk7czpYsRKYr JHYcG1XnxrayjVixtzDc AXMqqj2euzKmOGB6AATG AG0PMGEkUYEuz92yTMFv tIsvlU9hqEHwbaAoATHg p6XwgZ3xlXUVPGTuM5oy DR6dBGydr7MwhNWzuOJy bIS4KMAmf1ZcVhGhskCf hLUnaTJzD0PukRlnL1db IHAvQHIdnfNbhWCrc0Pe UFXodYW7hSNrKS1ITxDX g49wMUGpRRLEkcVhWTTu wLtdhMM7abG1nJ5sNzNE ZiBhcHBsaWNhYmxlLCBj i929cq9gjhB7GSXaAHAu oaszs8LpPPUoTRJzqZ55 PMSxBCIrrs1qqsnkoFNv wmCoX4Ntesg0rA1jNBLl YWluXGYxXGZzMjJcbGFu ZzEwMzNcaGljaFxmMVxk JvMfHPXfDGsrU4bgSgVk ZnMyMlxwYXJ9 [facility] MOLECULAR [id number] 22:32:52 Test Item Value Reference Range Interpretation Comments POCT Molecular FluA (test code = Negative Negative 52845-8) POCT Molecular FluB (test code = Negative Negative 75941-7) Lab Interpretation (test code = Normal 25062-1) [facility] MOLECULAR [id number] 22:26:40 Test Item Value Reference Range Interpretation Comments POCT Molecular Strep (test code = Negative Negative 91406-2) Lab Interpretation (test code = Normal 42893-3) [facility] [Presence] in Respiratory specimen by ADELAIDA with probe [id number] 21:35:28 Test Item Value Reference Range Interpretation Comments SARS-CoV-2 (COVID-19) RNA Not detected Not-Detected [Presence] in Respiratory specimen by ADELAIDA with probe detection (test code = 44454-6) Whether patient is employed in a healthcare setting (test code = 54328-1) Whether the patient has symptoms related to condition of interest (test code = 77431-0) Patient was hospitalized because of this condition (test code = 36044-9) Whether the patient was admitted to intensive care unit (ICU) for condition of interest (test code = 77208-4) Whether patient resides in a congregate care setting (test code = 33485-3) SARS-CoV-2 (COVID-19) RNA [Presence] in Respiratory specimen by ADELAIDA with probe [id number] 07:00:55 Test Item Value Reference Range Interpretation Comments SARS-CoV-2 (COVID-19) RNA Not detected Not-Detected [Presence] in Respiratory specimen by ADELAIDA with probe detection (test code = 53149-6) Whether patient is employed in a healthcare setting (test code = 08258-3) Whether the patient has symptoms related to condition of interest (test code = 80325-8) Patient was hospitalized because of this condition (test code = 19186-6) Whether the patient was admitted to intensive care unit (ICU) for condition of interest (test code = 47820-4) Whether patient resides in a congregate care setting (test code = 23818-4) SARS-CoV-2 (COVID-19) RNA [Presence] in Respiratory specimen by ADELAIDA with probe [id number] 14:44:09 Test Item Value Reference Range Interpretation Comments SARS-CoV-2 (COVID-19) RNA Not detected Not-Detected [Presence] in Respiratory specimen by ADELAIDA with probe detection (test code = 19252-0)
[2022-07-04] MEDS ORDERED: PROMETHAZINE INJ 25 MG/ML AMP ONE (16:17)
[2022-07-04] MEDS ORDERED: LIDOCAINE 4% PATCH ONE (16:18)
[2022-07-04] MEDS ORDERED: methocarbamoL 500 MG TAB ONE (16:18)
[2022-07-04] MEDS ORDERED: HYDROMORPHONE HCL 1 MG/ML INJ ONE ×2 (16:18→17:24)
[2022-07-04] MEDS ORDERED: predniSONE 20 MG TAB ONE (17:24)
[2022-07-04] MEDS ORDERED: KETOROLAC 30 MG/ML INJ ONE (17:24)
--- NOTE | 2022-07-04 18:29 | ER ---
Nurse's Notes [facility] Name: Adelita Lemons Age: 61 yrs Sex: Female : 1960 Arrival Date: 07/04/2022 Time: 14:47 Bed 9 Private MD: Ignacio Mckenzie Diagnosis: Acute on chronic right sided radicular back pain Presentation: 07/04 15:02 Chief complaint: Patient states: Pt reports lower back pain, more so on the right that heather intermittently radiates down her right leg x2 days. States she took a hydrocodone and 2 PO dilaudid without relief. Pt denies injury. Coronavirus screen: Vaccine status: Patient reports receiving the 2nd dose of the covid vaccine. Client denies travel out of the [place] in the last 14 days. At this time, the client does not indicate any symptoms associated with coronavirus-19. Ebola Screen: Patient negative for fever greater than or equal to 101.5 degrees Fahrenheit, and additional compatible Ebola Virus Disease symptoms Patient denies exposure to infectious person. Patient denies travel to an Ebola-affected area in the 21 days before illness onset. No symptoms or risks identified at this time. Initial Sepsis Screen: Does the patient meet any 2 criteria? No. Patient's initial sepsis screen is negative. Does the patient have a suspected source of infection? No. Patient's initial sepsis screen is negative. Risk Assessment: Do you want to hurt yourself or someone else? Patient reports no desire to harm self or others. Onset of symptoms was July 02, 2022. 15:02 Method Of Arrival: Wheelchair kb3 15:02 Acuity: CRISTAL 4 kb3 Triage Assessment: 15:05 General: Appears in no apparent distress. comfortable, Behavior is calm, cooperative. kb3 Pain: Complains of pain in right low back Pain radiates to right hamstring, posterior aspect of right knee, right calf, right Achilles and right heel Pain currently is 10 out of 10 on a pain scale. Quality of pain is described as sharp, Pain began 2-3 days ago. Is episodic. Musculoskeletal: Reports pain in right low back. 15:05 Musculoskeletal: Range of motion: intact in all extremities. iw Historical: - Allergies: 15:05 Amoxicillin; kb3 15:05 Bactrim; kb3 15:05 morphine-vomiting; kb3 - PMHx: 15:05 GERD; Hypertension; kb3 - PSHx: 15:05 Appendectomy; Cholecystectomy; Fibrous mass removed from abd; hysterectomy; L knee kb3 replacement; R hip replacement; right rotator cuff; - Immunization history:: Adult Immunizations up to date, Client reports receiving the 2nd dose of the Covid vaccine, Last tetanus immunization: up to date. - Social history:: Smoking status: Patient denies any tobacco usage or history of. Screenin:48 Abuse screen: Denies threats or abuse. Denies injuries from another. Nutritional iw screening: No deficits noted. Tuberculosis screening: No symptoms or risk factors identified. Fall Risk Fall in past 12 months (25 points). Assessment: 16:00 General: Appears uncomfortable, Behavior is calm, cooperative. Pain: Complains of pain iw in right low back Pain radiates to right leg. Neuro: Level of Consciousness is awake, alert, obeys commands, Oriented to person, place, time, situation, Moves all extremities. Cardiovascular: Capillary refill < 3 seconds in bilateral fingers Patient's skin is warm and dry. 17:48 Reassessment: Patient appears in no apparent distress at this time. Patient and/or iw family updated on plan of care and expected duration. Pain level reassessed. Patient is alert, oriented x 3, equal unlabored respirations, skin warm/dry/pink. 18:00 Reassessment: Patient states feeling better. Patient states symptoms have improved. iw Vital Signs: 15:02 BP 123 / 66; Pulse 86; Resp 18; Temp 98.8; Pulse Ox 99% ; Weight 92.99 kg; Height 6 ft. kb3 0 in. (182.88 cm); Pain 10/10; 17:48 BP 125 / 72; Pulse 89; Resp 16; Pulse Ox 97% on R/A; iw 15:02 Body Mass Index 27.80 (92.99 kg, 182.88 cm) kb3 ED Course: 14:47 Patient arrived in ED. as 14:47 Ignacio Mckenzie MD is Private Physician. as 15:05 Triage completed. kb3 15:05 Gissell Garcia MD is Attending Physician. sd2 15:05 Arm band placed on right wrist. kb3 15:42 Flower Deshpande, DISHA is Primary Nurse. iw 16:00 Patient has correct armband on for positive identification. iw 17:48 No provider procedures requiring assistance completed. Patient did not have IV access iw during this emergency room visit. Administered Medications: 16:23 Drug: Lidoderm Patch 5 % (700 mg/patch) 1 patches Route: Topical; Site: affected area; iw 16:24 Drug: Dilaudid (HYDROmorphone) 1 mg Route: IM; Site: left deltoid; iw 17:00 Follow up: Response: No adverse reaction; Pain is unchanged, physician notified iw 17:00 Follow up: Response: No adverse reaction; No change in condition; RASS: Restless (+1) iw 16:24 Drug: Methocarbamol 1000 mg Route: PO; iw 18:10 Follow up: Response: No adverse reaction; Pain is decreased iw 16:24 Drug: Phenergan (promethazine) 25 mg Route: IM; Site: left deltoid; iw 17:00 Follow up: Response: No adverse reaction iw 17:24 Drug: predniSONE 60 mg Route: PO; iw 18:10 Follow up: Response: No adverse reaction iw 17:25 Drug: Dilaudid (HYDROmorphone) 1 mg Route: IM; Site: left deltoid; iw 18:00 Follow up: Response: No adverse reaction; Pain is decreased iw 18:10 Follow up: Response: No adverse reaction; Marked relief of symptoms; Pain is decreased; iw RASS: Drowsy (-1) 17:25 Drug: Ketorolac 60 mg Route: IM; Site: right deltoid; iw 18:00 Follow up: Response: No adverse reaction; Pain is decreased iw Medication: 18:00 VIS not applicable for this client. iw Outcome: 18:28 Discharge ordered by . anita 18:35 Discharged to home via wheelchair, with family. iw 18:35 Condition: good 18:35 Discharge instructions given to patient, family, Instructed on discharge instructions, follow up and referral plans. medication usage, Demonstrated understanding of instructions, follow-up care, medications, Prescriptions given X 2. 18:36 Patient left the ED. iw Signatures: Estefania Fajardo Irene, RN RN iw Gissell Garcia MD MD sd2 Ricarda Lay RN RN kb3 Corrections: (The following items were deleted from the chart) 07/05 08:00 07/04 18:35 Discharge instructions given to patient, family, Instructed on discharge iw instructions, follow up and referral plans. medication usage, Demonstrated understanding of instructions, follow-up care, medications, Prescriptions given X 1, iw
--- NOTE | 2022-07-04 18:29 | EDPHYS ---
Physician Documentation [facility] Name: Adelita Lemons Age: 61 yrs Sex: Female : 1960 Arrival Date: 07/04/2022 Time: 14:47 Bed 9 Private MD: Ignacio Mckenzie ED Physician Gissell Garcia HPI: 07/04 15:47 This 61 yrs old Female presents to ER via Wheelchair with complaints of Back Pain. sd2 15:47 61-year-old female presents with chief complaint of right-sided low back pain radiating sd2 into her right hip and down to her right foot that started 2 days ago. She reports having a history of lower back issues but never this severe. She did also recently have a right rotator cuff surgery which has been healing well per her report. She denies any associated fevers and is able to ambulate and bear weight although painful. She denies any saddle anesthesia or urinary or bowel incontinence or retention. She reports a history of a herniated disc in the past. She denies any prior history of sciatica. She did also take her home dose of Dilaudid that she had via pain management from her recent surgery yesterday which did not seem to help with her pain at home. She has not had any pain medication today per her report.. Historical: - Allergies: 15:05 Amoxicillin; kb3 15:05 Bactrim; kb3 15:05 morphine-vomiting; kb3 - PMHx: 15:05 GERD; Hypertension; kb3 - PSHx: 15:05 Appendectomy; Cholecystectomy; Fibrous mass removed from abd; hysterectomy; L knee kb3 replacement; R hip replacement; right rotator cuff; - Immunization history:: Adult Immunizations up to date, Client reports receiving the 2nd dose of the Covid vaccine, Last tetanus immunization: up to date. - Social history:: Smoking status: Patient denies any tobacco usage or history of. ROS: 15:47 Constitutional: Negative for fever, chills, and weight loss, Cardiovascular: Negative sd2 for chest pain, palpitations, and edema, Respiratory: Negative for shortness of breath, cough, wheezing. Abdomen/GI: Negative for abdominal pain, nausea, vomiting, diarrhea. Back: Negative for injury. Positive for pain. : Negative for dysuria, urinary frequency, hesitancy, urgency and hematuria. MS/Extremity: Negative for injury and deformity, Skin: Negative for injury, rash, and discoloration, Neuro: Negative for headache, numbness and tingling. Exam: 15:47 Constitutional: This is a well developed, well nourished patient who is awake, alert, sd2 and in no acute distress. Head/Face: Normocephalic, atraumatic. Eyes: EOMI, normal conjunctiva bilaterally Chest/axilla: Normal chest wall appearance and motion. Nontender with no deformity. Abdomen/GI: Soft, non-tender, with normal bowel sounds. No guarding or rebound. No evidence of tenderness throughout. Skin: Warm, dry with normal turgor. Normal color with no rashes, no lesions, and no evidence of cellulitis. MS/ Extremity: Pulses equal, no cyanosis. Neurovascular intact. Full, normal range of motion. No midline spinal tenderness, stepoffs or deformities. R lumbar paraspinal TTP present as well as R gluteal TTP. Neuro: Awake and alert, GCS 15, oriented to person, place, time, and situation. Cranial nerves II-XII grossly intact. Motor strength 5/5 in all extremities aside from RLE which was not fully tested 2/2 pain. Sensory grossly intact. Psych: Awake, alert, with orientation to person, place and time. Behavior, mood, and affect are within normal limits. Vital Signs: 15:02 BP 123 / 66; Pulse 86; Resp 18; Temp 98.8; Pulse Ox 99% ; Weight 92.99 kg; Height 6 ft. kb3 0 in. (182.88 cm); Pain 10/10; 17:48 BP 125 / 72; Pulse 89; Resp 16; Pulse Ox 97% on R/A; iw 15:02 Body Mass Index 27.80 (92.99 kg, 182.88 cm) kb3 MDM: 15:37 Patient medically screened. sd2 15:47 Differential diagnosis: chronic back pain, Neoplasm Osteoarthritis Pyelonephritis sd2 ruptured disc, spinal injury, Ureterolithiasis vertebral fracture, among others. Data reviewed: vital signs, nurses notes. 18:25 Counseling: I had a detailed discussion with the patient and/or guardian regarding: the sd2 historical points, exam findings, and any diagnostic results supporting the discharge/admit diagnosis, the need for outpatient follow up, to return to the emergency department if symptoms worsen or persist or if there are any questions or concerns that arise at home. Response to treatment: the patient's symptoms have markedly improved after treatment. ED course: Pt sleeping comfortably at time of my repeat evaluation. Pain is to a tolerable level. I do not believe emergent imaging is indicated today due to the lack of trauma and no red flags on history or exam. Pt is able to ambulate and bear weight. Will place on steroids and give muscle relaxers for home. Pt under pain management and will follow up with them for further treatment. She has a scheduled appointment on Wednesday. Pt and verbalize understanding of discharge plan and strict return precautions.. Administered Medications: 16:23 Drug: Lidoderm Patch 5 % (700 mg/patch) 1 patches Route: Topical; Site: affected area; iw 16:24 Drug: Dilaudid (HYDROmorphone) 1 mg Route: IM; Site: left deltoid; iw 17:00 Follow up: Response: No adverse reaction; Pain is unchanged, physician notified iw 17:00 Follow up: Response: No adverse reaction; No change in condition; RASS: Restless (+1) iw 16:24 Drug: Methocarbamol 1000 mg Route: PO; iw 18:10 Follow up: Response: No adverse reaction; Pain is decreased iw 16:24 Drug: Phenergan (promethazine) 25 mg Route: IM; Site: left deltoid; iw 17:00 Follow up: Response: No adverse reaction iw 17:24 Drug: predniSONE 60 mg Route: PO; iw 18:10 Follow up: Response: No adverse reaction iw 17:25 Drug: Dilaudid (HYDROmorphone) 1 mg Route: IM; Site: left deltoid; iw 18:00 Follow up: Response: No adverse reaction; Pain is decreased iw 18:10 Follow up: Response: No adverse reaction; Marked relief of symptoms; Pain is decreased; iw RASS: Drowsy (-1) 17:25 Drug: Ketorolac 60 mg Route: IM; Site: right deltoid; iw 18:00 Follow up: Response: No adverse reaction; Pain is decreased iw Disposition Summary: 07/04/22 18:28 Discharge Ordered Location: Home sd2 Problem: an acute exacerbation sd2 Symptoms: have improved sd2 Condition: Stable sd2 Diagnosis - Acute on chronic right sided radicular back pain sd2 Followup: sd2 - With: Private Physician - When: 2 - 3 days - Reason: Recheck today's complaints, Continuance of care, Re-evaluation by your physician Followup: sd2 - With: Emergency Department - When: As needed - Reason: Discharge Instructions: - Discharge Summary Sheet sd2 - Chronic Back Pain sd2 - Sciatica sd2 - Sciatica Rehab-SportsMed sd2 Forms: - Medication Reconciliation Form sd2 - Thank You Letter sd2 - Antibiotic Education sd2 - Prescription Opioid Use sd2 Prescriptions: - Medrol (Nehemiah) 4 mg Oral Tablets, Dose Pack - take 1 tablet by ORAL route as directed - follow package instructions; 1 sd2 packet; Refills: 0, Product Selection Permitted - orphenadrine citrate 100 mg Oral Tablet Sustained Release - take 1 tablet by ORAL route 2 times per day As needed; 20 tablet; Refills: 0, sd2 Product Selection Permitted Signatures: Flower Deshpande RN RN iw Gissell Garcia MD MD sd2 Ricarda Lay RN RN kb3
== END 2022-07-04 18:36 | disposition home or self-care (01) ==
LOC: ER 14:45
DX: M54.16 Radiculopathy, lumbar region (principal); I10 Essential (primary) hypertension; Z88.0 Allergy status to penicillin; Z88.1 Allergy status to other antibiotic agents; Z88.5 Allergy status to narcotic agent; Z96.641 Presence of right artificial hip joint; Z96.652 Presence of left artificial knee joint
CPT/HCPCS: 96372; 99283; J2550; J7512; J2001; J1170 ×2

== ENCOUNTER 2022-07-05 17:02 | Emergency (ER) | payer OTHER ==
--- OUTSIDE RECORDS SUMMARY | 2022-07-05 17:04 | XMS REPORT | Clinical Summary ---
:1960 Author Organization [facility] MD [facility] Address [address] [place] [address] Care Team Providers Name Role Phone Madison Manning Unavailable Allergies Not on File Medications Not on file Active Problems Not on file Encounters Date Type Specialty Care Team Description 05/25/2022 Ancillary Procedure Radiology Cancer 03/30/2022 Ancillary Procedure Radiology Cancer 03/30/2022 Ancillary Procedure Radiology Cancer 03/25/2022 Lab Requisition Liban Javed MD Divatia, Mukul K, MD after 07/05/2021 Social History Tobacco Use Types Packs/Day Years [...] Cancer Resul ts for this PELVIS PM [employer] procedure are i n the results section. OSI CHEST Routine 08/22/2021 12:46 Cancer Results for this PM CDT procedure are i n the results section. PATHOLOGY OUTSIDE Routine 08/21/2021 Results fo r this INTERPRETATION procedure are in the results section. OSI ABDOMEN Routine 08/19/2021 12:47 Cancer Results for this PM CDT procedure are i n the results section. after 07/05/[address] Abdomen and Pelvis (12/29/2021 11:35 PM [employer]END[employer]) Specimen (Source) Anatomical Location Collection Method / [...] Accession#, Stained, Block, Unstained Collected Received 03/26/2022 [facility] Received A. [id number], 38 SS, 0 BLOCKS, 0 USS 08/21/2021 03/25/2022 6:58 PM CDT Addendum 1 Outside ([id number], 38 SS, 0 BLOCKS, 0 USS, collected on 08/21/2021): 03/26/2022 [facility] Addendum 6:58 PM electronic ally C. 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 No malignancy identified. MD Paty on 03/26/2022 at 6:58 PM Diagnosis Outside ([id number], 38 SS, 0 BLOCKS, 0 USS, collected on 08/21/2021): 03/26/2022 [facility] Electronically 6:58 PM signed by [...] and [id number]. CD34 highlights vascular channels. 03/26/2022 [facility] 6:58 PM The overall findings [...] amyloid deposition. Disclaimer "Some tests reported 03/26/2022 [facility] here may have been 6:58 PM developed and CDT performance characteristics determined by [facility]. These tests [...] Organization Address City/State/ZIP Code Phon e Number [facility] [place] [address] [id number] OSI Abdomen (08/19/2021 12:47 PM CDT) Specimen (Source) Anatomical Location Collection Method / Collectio n Time Received Time / Laterality Volume Narrative Systemgenerated, Documentation - 022 12:47 PM CDT Study acquired at another institution. For comparison only. No Alan originated interpretation requested or a vailable. Candida Fajardo MD IMG OUTSIDE IMAGE ORDERABLES after 07/05/2021 Insurance Payer Benefit Plan / Subscriber ID Effective Dates Phone Addre ss Type Group [employer] MANAGED A[employer] O [id number] 2014-Present [id number] [facility] [place] [address] Care Teams Lead Php Developer Relationship Specialty Start Date End Date Madison Manning PCP - External Follow Up A 03/19/22
--- OUTSIDE RECORDS SUMMARY | 2022-07-05 17:05 | XMS REPORT | Continuity of Care Document ---
:1960 Author Organization [facility] t Address [address] [place] [address] Dr. Rhodes[address] [place] [id number] Care Team Providers Name Role Phone Carey Koo MD Primary Care Physician SYSTEM, PROVIDER NOT IN Attending Clinician Unavailable LISSY WILSON Attending Clinician Unavailable MARIAN CUTLER Attending Clinician Unavailable DILAN SWENSON Attending Clinician Unavailable BROWN JIMENEZ Attending Clinician Unavailable Liban Javed MD Attending Clinician Jed Reardon MD Attending Clinician Unavailable _[facility]_Gracie_S Attending Clinician Unavailable YANELY SEARS Attending Clinician [...] Pob I Attending Clinician Unavailable Doctor Unassigned, [place] Attending Clinician Unavailable BROWN DUNLAP Attending Clinician Unavailable KORY CERVANTES Attending Clinician Unavailable NEHEMIAS SANDOVAL Attending Clinician Unavailable CAREY KOO M.D. Attending Clinician Unavailable GC_TNC_Lovitt_S Admitting Clinician Unavailable YANELY SEARS Admitting Clinician Unavailable EDOUARD AVILA Admitting Clinician Unavailable CANDIDA OLIVAREZ Admitting Clinician Unavailable MD CANDIDA OLIVAREZ Admitting Clinician Unavailable CHU MENA Admitting Clinician Unavailable EDOUARD FREY Admitting Clinician Unavailable KORY CERVANTSE Admitting Clinician Unavailable Payers Payer Name Policy Type Policy Number Effective Date Expiration Date S ource [employer] CHOICE POS [id number] 2013 00:00:00 II AETNA (POS) [id number] 2013 00:00:00 Problems Condition Condition Condition Status Onset Resolution Last Treating Co mments Source Name Details Category Date Date Treatment Clinician Date No known No known Disease Unive rs active active ity of problems problems [facility] Cervical Cervical Problem Active [facility] dysphagia dysphagia [...] ity of 00:00: [place] 00 [facility] Sulfamet Propensi Active 2020-11 [facility] hoxazole [...] Start Date Stop Date Quantity Comments Source Exposure to Not sure [facility] SARS-CoV-2 [place] [facility] (event) Branch History [facility] Alcohol Std Drinks History [facility] Health Alcohol Binge History [facility] Health Alcohol Comment Alcohol intake 2021-09-10 2021-09-10 Lifetime [facility] 00:00:00 00:00:00 non-drinker (finding) Tobacco use and 2021-09-04 2021-09-04 Smokeless tobacco [facility] exposure 00:00:00 00:00:00 non-user History SDOH 2021-09-04 2021-09-04 1 [facility] Alcohol Frequency 00:00:00 00:00:00 Sex [birth year] At [birth year] Univers[facility] y of 00:00:00 00:00:00 [facility] Smoking Status Start Date Stop Date Source Unknown [facility] Never smoked tobacco [facility] Medications Ordered Filled Start Stop Current Ordering Indication Dosage Frequency Signature Comments Components Source Medication Medication Date Date Medication? Clinician (SIG) Name Name benzonatate Yes [id number] 100mg Take 1 Univers 100 mg 1-13 capsule by ity of capsule 00:00: mouth [place] 00 every 8 Medical (eight) Branch hours as needed for Cough. bromphenira Yes [id number] 5mL Take 5 mL Univers mine-pseudo 1-13 by mouth 4 it y of ephedrine-D 00:00: (four) Aleksandra Simental (BROMFED 00 times Medical DM) 2-30-10 daily as Bran ch mg/5 mL needed for syrup Congestion /Allergies . benzonatate Yes [id number] 100mg Take 1 Univers 100 mg 1-13 capsule by ity of capsule 00:00: mouth [place] 00 every 8 Medical (eight) Branch hours as needed for Cough. bromphenira Yes [id number] 5mL Take 5 mL Univers mine-pseudo 1-13 [...] Name Observation Time Observation Value Comments Source Respiratory rate 2021-11-27 16 /min [facility] :07:00 [facility] Body height 2021-11-27 190.5 cm [facility] :07:00 [facility] Body weight 2021-11-27 94.518 kg [facility] :07:00 [facility] BMI 2021-11-27 26.05 kg/m2 [facility] :07:00 [facility] Oxygen saturation 2021-11-27 97 /min [facility] in Arterial blood :07:[address] [facility] by Pulse oximetry [place] Systolic blood 2021-11-27 157 mm[Hg] [facility] pressure 22:07:00 [facility] Diastolic blood 2021-11-27 92 mm[Hg] [facility] o f pressure :07:00 [facility] Heart rate 2021-11-27 117 /min [facility] 22:07:00 [facility] Body temperature 2021-11-27 39.67 Claudine last dose of [facility] of 22:07:00 Motrin this AM [facility] Systolic blood 2021-09-04 147 mm[Hg] [facility] pressure 19:12:00 Diastolic blood 2021-09-04 72 mm[Hg] [facility] pressure 19:12:00 Heart rate 2021-09-04 94 /min [facility] 19:12:00 Body temperature 2021-09-04 36.5 Claudine [facility] 19:12:00 Body height 2021-09-04 182.9 cm [facility] 19:12:00 Body weight 2021-09-04 92.987 kg [facility] 19:12:00 BMI 2021-09-04 27.80 kg/m2 [facility] 19:12:00 BP Systolic 2019-11-01 144 mm[Hg] Location: RUE; [facility] 14:32:00 Position: Sitting BP Diastolic 2019-11-01 86 mm[Hg] Location: RUE; [facility] 14:32:00 Position: Sitting Height 2019-11-01 75 [in_us] [facility] 14:32:00 Weight 2019-11-01 194.25 [lb_av] [facility] 14:32:00 Body Mass Index 2019-11-01 24.28 kg/m2 [facility] Calculated 14:32:00 Temperature 2019-11-01 99.2 [degF] Method: Oral [facility] 14:32:00 Heart Rate 2019-11-01 103 /min [facility] 14:32:00 Respiration Rate 2019-11-01 20 /min [facility] 14:32:00 O2 SAT 2019-11-01 98 % Source: [facility] 14:32:00 BP Systolic 2019-10-18 154 mm[Hg] Location: RUE; [facility] 10:58:00 Position: Sitting BP Diastolic 2019-10-18 93 mm[Hg] Location: RUE; [facility] 10:58:00 Position: Sitting Height 2019-10-18 75 [...] CT ABDOMEN AND PELVIS 2021-12-30 05:35:00 [facility]LE[facility] FLU 2021-11-27 22:21:00 Ian [facility] POCT MOLECULAR STREP 2021-11-27 22:18[facility] 2021-08-22 17:46:00 Candida Olivarez [facility] PATHOLOGY OUTSIDE 2021-08-21 00:00:00 Jed Reardon [facility] INTERPRETATION [facility] OSI ABDOMEN 2021-08-19 17:47:00 Candida Olivarez [facility] History of Exploratory [facility] [...] Clinicians Facility Department ID 2022-04-01 Outpatient SYSTEM, [facility] [id number] 10:41:31 PROVIDER Barney o n 2022-02-06 Outpatient [facility] [id number] [place] 11:18:23 [id number] [facility] 2021-08-21 Outpatient STEVE, [facility] [id number] [place] 13:19:11 [facility] 2021-08-19 Outpatient VAN ONEIL, [facility] [id number] [place] 12:52:48 [facility] 2022-06-24 2022-06-24 Outpatient LEELA, [facility] [id number] [place] 00:00:00 00:00:00 DILAN [facility] 2022-06-17 2022-06-17 Outpatient SAHARIA, [facility] [id number] [place] 00:00:00 00:00:00 BROWN [address] 2022-06-16 2022-06-16 Outpatient SAHARIA, [facility] [id number] 7157 [place] 00:00:00 00:00:00 BROWN [address] 2022-06-16 2022-06-16 Outpatient SAHARIA, [facility] [id number] [place] 00:00:00 00:00:00 BROWN [address] 2022-06-16 2022-06-16 Outpatient SAHARIA, [facility] [id number] 0097 [place] 00:00:00 00:00:00 BROWN 578 Method i 2022-05-25 2022-05-25 Ancillary EL 1.2.840.1 [id number] Univers 23:30:00 23:35:00 Procedure [id number] it y of 3.412.2.7 [place] .3.309108 MD [facility] 2022-05-25 2022-05-25 Ancillary 1.2.840.1 [id number] Univers 23:30:00 23:35:00 Procedure 93572.1.1 it y of 3.412.2.7 [place] .3.776610 MD [facility] 2022-03-30 2022-03-30 Ancillary EL 1.2.840.1 [id number] Univers 20:05:00 20:10:00 Procedure 05058.1.1 it y of 3.412.2.7 [place] .3.607455 MD [facility] 2022-03-30 2022-03-30 Ancillary 1.2.840.1 [id number] [id number] Univers 20:05:00 20:10:00 Procedure 49469.1.1 it y of 3.412.2.7 [place] .3.696617 MD [facility] 2022-03-30 2022-03-30 Ancillary EL 1.2.840.1 [id number] [id number] Univers 20:00:00 20:05:00 Procedure 02912.1.1 it y of 3.412.2.7 [place] .[id number] MD Rivera8 [facility] 2022-03-30 2022-03-30 Ancillary 1.2.840.1 [id number] [id number] Univers 20:00:00 20:05:00 Procedure 66543.1.1 it y of 3.412.2.7 [place] .3Nicole945178 MD Rivera8 [facility] 2022-03-25 2022-03-25 Lab Liban Javed 1.2.840.1 [id number] Univers 00:00:00 00:00:00 Jed Velez 62221.1.1 ity of n 3.412.2.7 [place] .3Nicole464499 MD Rivera8 [facility] 2022-03-25 2022-03-25 Lab Liban Javed 1.2.840.1 [id number] Univers 00:00:00 00:00:00 Jed Velez 55169.1.1 ity of n 3.412.2.7 [place] .[id number] MD Rivera8 [facility] 2022-01-01 2022-01-01 Outpatient GC_TNC_Lovi PRIV PRIV [id number] [facility] 06:01:00 06:01:00 tt_S [id number] Medica l 2021-12-23 2021-12-23 Outpatient [facility] [id number] [place] 00:00:00 00:00:00 YANELY [facility] [facility] 2021-11-29 2021-11-29 Telephone Trudy Vernon 1.2.840.114 [id number] [facility] 00:00:00 00:00:00 LÓPEZ 350.1.13.10 it y of [facility] 4.2.7.2.686 Chapo as [id number] [address] 2021-11-27 2021-11-27 Outpatient Antonino ARREDONDO III, [facility] [id number] [facility] 16:00:00 16:56:53 SLY may [facility] 2021-11-27 2021-11-27 Urgent Sly Arredondo [facility] 1.2.840.114 [id number] [facility] 16:00:00 16:20:00 [facility] [id number] yadira guerrero [place] 4.2.7.2.686 Chapo as ILA?BLEA [id number] Ny maury [address] MEDICAL OFFICE [facility] 2021-11-10 2021-11-10 Outpatient [facility] [id number] 483 [place] 00:00:00 00:00:00 037 Method i 2021-11-05 2021-11-05 Outpatient [facility] [id number] 332 [place] 00:00:00 00:00:00 514 Method i 2021-11-03 2021-11-03 [id number] [id number] [place] 00:00:00 00:00:00 YANELY 382 Method i 2021-10-29 2021-10-29 [facility] [id number] [place] 00:00:00 00:00:00 YANELY 804 Method i 2021-10-01 2021-10-01 Outpatient [facility] [id number] [place] 00:00:00 00:00:00 YANELY 521 Method i 2021-09-25 2021-09-25 Telephonic ESTEFANIA Wilson 1.2.840.114 1 [id number] MS 11:04:05 12:53:20 Encounter Lissy CARDENAS 350.1.13.58 Health 9.2.7.2.686 [id number] 2021-09-04 2021-09-04 Office Steve ESTEFANIA GO [id number] [id number] [place] 14:04:50 14:42:37 Visit Lissy [facility]DENAS [facility].1.13.58 [facility] 9.2.7.2.686 [id number] 2021-08-19 2021-08-29 [id number] 67 [place] 00:00:00 00:00:00 JAMUNA [address] 2021 2021 [facility] [id number] [place] 00:00:00 00:00:00 YANELY 113 Method i 2021-07-01 2021-07-01 Outpatient RENU, [facility] [id number] [place] 00:00:00 00:00:00 YANELY 873 Method i 2021-03-11 2021-03-11 Outpatient THEKDI, [facility] [id number] 318 [place] 00:00:00 00:00:00 CHU 763 Method i 2021-02-26 2021-02-26 Outpatient THEKDI, [facility] [id number] 456 [place] 00:00:00 00:00:00 CHU 635 Method i 2021-02-24 2021-02-24 Outpatient THEKDI, [facility] [id number] 550 [place] 00:00:00 00:00:00 CHU 779 Method i 2021-01-08 2021-01-08 Outpatient THEKDI, [facility] [id number] 267 [place] 00:00:00 00:00:00 CHU 704 Method i 2020-11-28 2020-11-28 Outpatient THEKDI, [facility] [id number] 723 [place] 00:00:00 00:00:00 CHU 101 Method i 2020-11-20 2020-11-20 Outpatient PETAK, [facility] [id number] 937 [place] 00:00:00 00:00:00 JACQUI 050 Method i 2020-11-11 2020-11-11 Outpatient THEKDI, [facility] [id number] 814 [place] 00:00:00 00:00:00 CHU 428 Method i 2020-10-30 2020-10-30 Outpatient THEKDI, [facility] [id number] 863 [place] 00:00:00 00:00:00 CHU 447 Method i 2020-10-30 2020-10-30 Outpatient MITCHELL, [facility] [id number] 866 [place] 00:00:00 00:00:00 KATEY 260 Method i 2020-10-30 2020-10-30 Outpatient MITCHELL, [facility] [id number] 866 [place] 00:00:00 00:00:00 KATEY 261 Method i 2020-10-23 2020-10-23 Telephone Pcp, [facility] [id number] 00:00:00 00:00:00 Patient Health [id number] Does Not [place] 4.2.7.2.686 Have A Professio [id number] nal 044 [address] One 2020-10-05 2020-10-05 Laboratory Lab, Adc [facility] 1.2.840.114 [id number] 15:32:07 15:52:07 Only Fam Pob I Health 350.1.13.10 [place] 4.2.7.2.686 Professio [id number] nal 044 Office [address] One 2020-10-05 2020-10-05 Letter Doctor TALIB 1.2.840.114 [id number] 00:00:00 00:00:00 (Out) Unassigned, LÓPEZ 350.1.13.10 [place] [facility] 4.2.7.2.686 [id number] 2020-10-03 2020-10-03 Outpatient MITCHELL, [facility] [id number] 466 [place] 00:00:00 00:00:00 KATEY 640 Method i 2020-09-26 2020-09-26 Outpatient [facility] [id number] 000 [place] 00:00:00 00:00:00 219 Method i 2020-09-23 2020-09-23 Outpatient [facility] [id number] 5084 [place] 00:00:00 00:00:00 BROWN 868 Method i 2020-09-23 2020-09-23 Outpatient [facility] [id number] [place] 00:00:00 00:00:00 BROWN 910 Method i 2020-09-23 2020-09-23 [facility] [id number] [place] 00:00:00 00:00:00 BROWN 911 Method i 2020-09-23 2020-09-23 Outpatient [facility] [id number] [place] 00:00:00 00:00:00 BROWN 076 Method i 2020-09-23 2020-09-23 Outpatient [facility] [id number] 8355 [place] 00:00:00 00:00:00 BROWN 281 Method i 2020-09-23 2020-09-23 [facility] [id number] 5718 [place] 00:00:00 00:00:00 BROWN 555 Method i 2020-07-23 2020-07-23 Outpatient THEKDI, [facility] [id number] 495 [place] 00:00:00 00:00:00 CHU 397 Method i 2020-07-01 2020-07-01 Outpatient ERGUN, [facility] [id number] 322 [place] 00:00:00 00:00:00 GULCHIN 383 Method i 2020-05-01 2020-05-01 Outpatient LORI, [facility] [id number] 8696 [place] 00:00:00 00:00:00 NEHEMIAS 750 Method i 2020-05-01 2020-05-01 Outpatient LORI, [facility] [id number] 1176 [place] 00:00:00 00:00:00 NEHEMIAS 746 Method i 2020-03-19 2020-03-19 Outpatient ERGUN, [facility] [id number] 975 [place] 00:00:00 00:00:00 GULCHIN 523 Method i 2020-02-14 2020-02-14 Outpatient ERGUN, [facility] [id number] 037 [place] 00:00:00 00:00:00 GULCHIN 193 Method i 2020-01-31 2020-01-31 Outpatient ERGUN, [facility] 211 [id number] 851 [place] 00:00:00 00:00:00 GULCHIN 187 Method i 2020-01-02 2020-01-02 Outpatient ERGUN, [facility] [id number] 252 [place] 00:00:00 00:00:00 GULCHIN 723 Method i 2020-01-02 2020-01-02 Outpatient ERGUN, [facility] [id number] 252 [place] 00:00:00 00:00:00 GULCHIN 357 Method i 2020-01-02 2020-01-02 Outpatient ERGUN, [facility] [id number] 247 [place] 00:00:00 00:00:00 GULCHIN 186 Method i 2020-01-02 2020-01-02 Outpatient ERGUN, [facility] [id number] 244 [place] 00:00:00 00:00:00 GULCHIN 131 Method i 2020-01-01 2020-01-01 Outpatient ERGUN, [facility] [id number] 032 [place] 00:00:00 00:00:00 GULCHIN 825 Method i 2020-01-01 2020-01-01 Outpatient ERGUN, [facility] [id number] 032 [place] 00:00:00 00:00:00 KORY 826 Method i 2019-11-01 2019-11-01 Appointmen NAYAN ESTEFANIA Thoracic [id number] [place] 13:30:00 13:30:00 t; CAREY KOO Surgery - Physicyarely PATINO M.D. [facility] shai Hinojosa 2019-10-18 2019-10-18 Appointmen ESTEFANIA KOO Thoracic [id number] [place] 11:00:00 11:00:00 t; CAREY KOO Surgery - Marli PATINO M.D. [facility] shai Hinojosa 2019-10-18 2019-10-18 Outpatient MHSE MHSE [id number] MH 09:08:00 09:08:00 Delvis ghotra [facility] Results Test Description Test Time Test Comments Results Result Comments Source Pathology Outside Interpretation 2022-03-26 23:58:33 Test Item Value Reference Range Interpretation Comme nts Materials k9ffmMQjTOJpxUFaEcKpTJUoCKOxk6xxUEHcvGQoXvEhTaCqXsCyAmodvZTdGCSkFlIvd2vna163sRQq z5ggOPBuZjO7xXWjHCEvoNLgE411MXDeBGdec0cio0ZeDRHysBEed2P6ESWEzfoluAq3qXetY02at1B1 WcfuC9ebJVExTGFkA0AeLJ0aARSlAfe6HHK7BPP5NOU Received nHEGeD9DgEG2vXSEevHZqZEo1n3aciOcpKZRlHIS3m0enCUgwiyRtDR9elc9psDy2n0canfYbMUZzICG fxBJQLYGeW2MdaWarOm0dnQn6kFqlNaesDVI2Tsg4IG0nqv19ndy5eZbwAANxgoxdIeD0JXlnMSGmcaa mORo7ZOfeRAPliTwoTDfyNFAnvsizRHrvPQCuhKZ7OE (test code CqfLQaS9DzMNQnTEiaGLHayav9MnMbXs0cyEBftPeoXHcmi2fcr4lqxMJrQdq0BPHoRoNvBoqyLQpil2 Hkm0fkPRAvlw6yTEX3tPYepVtni4W1fCQcCFLlgETgvzGhDQHyva20rIWyrEZpdEPopq8ymlDsiTGfdD TeUDY0nDLcutBjZKBscMXcQRYdBG9qfGIfTIXedP5ip = 9973) zyaYMEgTrMctkreBJNypLliyeRoKc1veHstUDE4WKpqL5hkiH3yZaV8MRhpH4ikrH8yVTc6PNulkHP9J JWfeR4mBV7vsulvi3djJeEaDX0lsnxrg1djZpSoOH4lwzi5h8fhHQU1ZPhkUXVtFyZ9xlF6AXGwgDQnK AUzwBtrSAufu207EFK7AbSiDUKkw9CbW1XcpApnX64j tUgpT02gTPKceLpspN4xlVpbjM0iIzPhAgQrEDs2hq24ANk6gpcgxCtePDi5epMlSPGtRDA6HVMkkRAx UZAiI6z6coShIXCwMBP7UEKpgWTjKPWmR5v7vvGbHBN7OLl7lfEmPCWtsGCljGYrVRRwPmLihOZkLVVc YmFeQQYfhYVmsVLbeRTxjL2joSmuEBUiyXRduS1zPXM 1GNCtfiyyXiRluBDrIGJxnICxtu88WBFnslPfyLDzwChchNZiIUP8QPGqCQQjSMDkQBU4TORdScKgtgN fAKcziYHoNSSePYSdHDEeMJUkHAK6FQHpKeJfieNmJWmgvAOxISYtNMHlEGMvVNPmRJG5ASPoBjPccaV pCWpppTTdMVBsKLDlCMZvJVSfWBU7WZGzSeUujbGxEW bycRKwSNAlNDyhvNBrIUK9R7sezDCvHGIlUGwwxJFaZGEhP9sycPHvWMfqYFUykXXdCyqlIGZugWCeGf UdP7pgJNIrGjPoN1DedUr2ZXLcXZCjzoXvwGIsaRkxbOZoINX7KSCwWXGtZCQzQQI1CEZnRhXgqlLyWX ewtFVyATAkBXWwMYFlKIQrEAK9AYUnSeVxnxVbCOlky RZrMHHkGDChAGKqPBQzSEL5ZLKhPqYrvyUdSMcnzAPdWHFmRKUqOIZkWWYiYWV8FAAsZyTnpzQgXNtmj FGzRGRcYMoikUGkRQR4O7itlRAcLPKjAJiwfCTnCIYyL9ozuLFjIGpzOEKzqQOoAzaoBVFheBNxLwAtB 6vmHAZpDoChE0RdzOn4PpSpGNQhtwNgjWBxrOdfqVXf WZX9KXIeNEImNOGrHUL2BFNcWxCpvtCjSQtbgCHdIURhTKFfLFMsRUUjOYO3GNWnBlHvpkTcEAiovFDz GZSbSEKuMZJyYJXfORA6SRIqLcSmhyXmRXpfgMBxLCCvJQJaUHBaTQSdEZB1JXWaJmCizqZmSHzekXQy LGEmSYzobSVeXTQ9F3ccfMMdYFIiNNytkCOiMNHxB1u plRHnQNiqDYTddPQpAmqkUDOrzAJgMvIsS9afEJMfOyHgB1OnuBz7UwKbICGyjsFwhD80Hxdcy7OjSKC rLMW0LWxcTXxgiNrnmIHakhhsGApnuzCrDUfyvxsqMKDpOSloZ2vgNjScGIOdwFepLNqra4MsZIYsQVV cVsibehQpCHDlKNZhVGVjxC1hGksaK2WbfJ7kQMnqSr tqU5qdTTQwb4OulU0vIAgubCDxahwoELhgblEfBLyrephgZGYcORaaH7wnMsXbUYWaqYqzKLyyg5XuYS NpMEDcMgkuarRlWGn8luWeJWGjkGnzrMFvHFnvrmOocQctn3WnmrWplIheTORjTLp8bpUmvzipzSa6dI LubSylOPEbmVpunP0eJxFhRcKnGDuiyHVyrhpaEWwsv jOlPKhuyqwqQJWfUAbsJ5jwIePmQHHktRqkQBzcs2TmEFVdOSWlHtiltwPyNDPeV03xiZApjWNlNIUpV ZyuRDDxCVNtFtUpqNAzBoVhCuGngLrkxOytOIgyBtQqBDSwONptI4poVzGbM9HmJBLrLkPxpHGaJ0rhP 0HbeVndOKRuANbdoKApUCLlnVNjPKY5cTVywlOmfAFg pTBgTUWtIZlzNIT1zYMarturdWQnpqqqZZacloM0BDDbAJmwTVGhREKiEsCkrCXeFvVpNmCjxUhtoNjg SPjdXeUgLFLzHTqeL6zaYvCrA4VuCIUkXzXrAcXUWELfbSFjWWsjnXOsvsjzTDzxtoVxKFvftzktTLRd PBdbV8cvYyNdTLYxvUxlQQtbi7YsQMUrOKPhIxgqljR nHYa1beKhZSLhoBuukB68Nrpzyk78LQVlv8atDDMeK2YtnNJuXHQxwIRcCBgqHOwxkVShREEfGuteWNI ceIBrWAKuWTftdTQfVJJlBhRrTFAknVVuZSIbKEUnwACbYSM0I1o7tsKfSFVsOXn8ctLsWHXzMkPphHK dBWM8FRw5VlhyybG4gXJdH4e4HsxtgeKcQPfjoGVmyq 03UOVsfyTzeIFrtFljkBNeSTU7JLLwTJBqOVFzXNU3DEYvAxBfryWrBKyrkECtEOKhLMTkAPNjXPFbCK B7UPWmGgByxpNjIEstsOBxZKCjZUKxZHHyNOKwECT7XZIwEjBlvlVlANjwjFJyMHHiRIToJTPrHCSzEQ C7MHFdSzMchaGsXRsweDZnUTTrLLufhZEmIYS6K2top BCgKCQfWLxwdPQpNRGuD9kkuNUmKHrxEHRjgYJbPxkgAOFkgRQpFzShZ7jwTJPfJbRgX8HtpVn0VMBxY AOqsdRklKRtcRafgRCmEOP6VXOkQPFdSDSuUDU3BAHnMzJkwoBbAIvjjKMePTAsZUJfSHClFPWbIEZ2I KRjViKisbIgCKuhdDUkAXNrRKKmFPUmFNQcXVU3DCWo HfZuoxXmLYtsmUXzMSHhGYWbFFPiIPWlSDC7YINhOzIlbvIxTHgncDPaRCTuHHabxFWbKZJ9D4lkdTBk VFPjOGzhiDBjWCDgH0zfsWGtPJliQFOekKDvEsuiFCHtdFZeRxRbA0usYAZoJbMyV4CnzMx7LhXmOJCv qlTxbEGxoDtjgWSpTOB7JCTsPWGcCXStEPL7SUCtBuF grfAjLQvhmMTaWXHfWUFtZNHyGWTuBXK3THDmRdGolcQiPHnupNNcCSWlLTLiTGJjRXSkJLX4LMWmIcQ icaPpRNhjkEPhLTQnPQTiQFJgORKvDKD3ZRCyJxNidfKhTOxhkSKoUCDdLHjysCCcCPM4B1qddECmZYM cLQzjgPSpBNGxD5uenVGgYMyfTIXaeXYbQzsfWWOtlW XuWiUiA3zrUNCnMdMqN7SxnBf0HsFiQFCcxnAekV36Eqcuy2YsEIIaRWI7WRajRYvucAtcdAUhukzqJZ nbdcQ8QZMcENcsQPLtFZKgGaAtmHGoKpYoUeJinGxyrPhzKUgmAgCfKIGoAAcxL0ppIhHoH1OsHQLgAj LoAF4sG8CkSxXmEdb4NLseOZC4GZJQXQVaVYDYD3PFQ dqbXTKZL0LmbDnhsO5wYwXkCrDwPDmnRS1nRSIoU9jlgPVbKOSsIHKyU4zxNvZieL6fnGskGWwkLgBcZ jMrABulaUDziBqjKSoxEKKgjfUcyW97Irtyw0OnCZSyKUL6NTdsBMwmdBganQChfcwmMMlfamE6WUIeD WluXGYxXGZzMjBcbGFuZzEwMzNcaGljaFxmMVxkYmNo JXPzDRkbN7kkDxCpX2PtROAkQfIpLTEoFq6kIPBuXRGiHTtzKHBmFMWePeQenAQbMrXhQzAirKjybWlf EWbzKzYhVZZgCDiqI2niGkXxZ4WsBFNpGlXstHVsY7ntV5BxrWdtYBZlRTlsiMMmGALswUXfMQK3eUDr nlDqiJipzMcgvA0pUtUxRxVbTEswhZGvmlllRWvjbaX rMPsqcgooTFLcWLwaE6uhApYeGHRxuPedKYusr3GzGUVeQLIvVdldrwVwDKVkRBMsGoYcDlzrvOQcudw nRPblovOxXLfhuvtxCVDwXTjxW9nmNiFyDKXagZwiIDyar4LvNKQcQGXdSdqavmTiTJq8cxXfGLFsoZo gmL91Tpkajn43NFKlelEzd7EhHPRdQZA0LKkkTHadaF qfeEBtskijSGthubO0GCLgFOvuDZVnKOHvKfGmaXRkQaTxGoJauRggcRlsNOxmUcZrXTUbLMotG1gsAk FcZnMyMFxwYXJ9 Addendum 1 q5zsoMAjTXNdpRE6XzWwLMEoo7wbn2PudAWcaXYdORupoAXzlfHuiu29fQV1gV78UF4cDWRzOaG2ZRCk diD7Sut3APInCHFhjSMhI595n8kvu5ejgpSqzDO0MGBmDWKbI4GaJE7pJOCblRUdR22fvSZvNUP2VWWs LNGziMOlXWDdZTG6VYJnyELgV4ixUBVaAE8htohtXBi (test code wGAseLOWnvWT4LHMlxWGjE8QpRQZvYEbpXOJdavv3QdBpMy0zeRCfhXzyAFyaYHNaYZPbDFrxHQCfLuU mC0XuUI69eGKdLYAnQROEUWNhBZA8UYp9EVGoYTQRXtcxTYYXUK1ZH2GyKDWnMTGNLSIjo8piMIX3CVK kq80cAQCzFx1pGAZpRDuaeCFkOESsLWjcSRPquTv0Ea = 35) AgcUpoBsGcLLLeXFBHnENuyxsjre6xzQfudutwd4IiS2YoEzfsfCJ7LPgtUaqxFPOoaGwaFXNpUGZlAD lbABvlvV2wEFYsUXEhiIIbVZAlhVKvBGNjr53izlgcTF5zSLImcdXrUV6kYAFbLSLcacFFkgGrFQmlC1 9ouiX1XGeyFW48oFEzRSDiOUJpuwoiHPDzjQGhLMyiW XJ9 Diagnosis i9rnjINrFAIfqKN2PoFkSDQec9sxg7EtqTCysOCnXLbyuEEzesSwpn27vXQ7mA47KS2sFUKyLpH8WNLv tyF5Ogs6IOBnZPEyzMQsY232a9bwm4smdoIxyGC0TSKgZTCjW4OwHJ1vDIRthWUxL93lcJCjWXR2POBz YGGbkKDtGVWmXEC9TBIdbGOyA3muOCBoJZ5rygovOFf (test code gGZovKRKegSP2STVulEUqZ8TeKHIbDGfzCDLrfqi4AqKdCo7lvWRhvHutMPmrMQQlSQBqKFoeINIuVwB zR7CjCD84sXDjZQInQHHKHGSfUFE5JXq0MMAaYAPHZydnRHVTHP4UX8GqQVIoWLQIRTMai3aqRLB7FHU mz50zMZTlBg8xZSJcKOrgkTJbSMNdKHetSICexKg8Kk = 32) TulRbiZyIyUIOwYKdtvlOenZ3ss1t4sPDgDIKzgcPyhatcQX2eu3EmRSEkV78akrTfqDUzLOIyS7Aou7 33SJSjlnxyeHHvFzDiKrntZzSxDRxjyeOdWuHyHuMibTjwYOU6dt2mOCphHwotqi8qdQWlzZwydEzumM btcPtfeaEmkjDympKsL0XzDPDppDZyeOqgMMYjwIafc zQbjoCgvHZfdxiewMFsXG82KMZuWbRqPORpWH8oDSQao9TsWJAcwl7aMY5cHJAyBRNfv16yHU79JGSoI VrdEQWlOEKqg3Ghe2u4BYJbLnEgA32rFVIjcuTlbHFhpVKrVBZmwF2yvFbxdJNcLL9nGGNtwB1beHVwm 6FtTQRnopG1pX5omdLsyqReBT91IUvzYeZrJwdsOFLo NzDpVLI1uY4mIF1rpjoxnpWlEPMqRFFqy4UedPMmi1GjFNIgxoMTbcWovLTqk2FdlFIlx97zrIbhHg03 ZGwijFHwo1XdNcloANVcsQJiMDntTcBnPVBpWXkdrG28QlUzWy9uZTDfOP01NJQ8LYKvsH5fc0c4NJGv yrh2GVLkPIrqfQsewNsdSQJcfMFtlSNxWBGnl2iwGtT qUSWri10sQNsjLNSuK88mtNAdbKAbBosnbQAsVWIxofASVjAVtUFppufxzy4rrJyafiaww0IpJ5ZmBaq caKW9EAjzCtghVETjyEQcCAXgOVVaPEJzN03wPUNpjYYxXlasW9jhkKD9mU8mk9y3CXpnvYOkc4Ijq1Z dNYSvQYXwFIJiKBDonE6deXqwHWItyjcoJKFpuOYmHH BhcmRccGFyfQ== Comment n3gffMWjKDHygQH5YgBxRDWxa3ker4MbqUIznCZfCEbouEGqroKdwa13jWI3dY69UP4gGWGyJeY6KIAt qjQ1Nda2KUSzMCQsgETgZ020p4dst6gujuOttIG5qZkkPGWkbdyjPdU4EVkyEPBklezqKDw4DKfqKWSk tOF2CCBlkWTgD2UgBGLpWT0igdt7RCT1OHouGCAfPaG (test code 5SVMsqKFoZADvtCzsUSwob468RMF7DfEtDBXolvRldGtkyF3fFoBtUKCeWPsNjPAxhTA4UUDaqD7lsT6 atKumsK3cwYItpERkeWTijIZjalCnd1idikR6mGA5JGRsVXUyiBMuiTAaWYXzqBSdedLvyDYbtzVlVQy qoDg8YQSpl8BwCpD4UZ3rAJZyvgcoRHzodVNvFOMzJK = 9835) J9wOZns4Rvm36dPTYUEylxMXPOJPI7HXNtNFGfrD9nHYFrh546yPObpWHaqNToAMQ2qJ3tFRTZYkXeHE ESCNQuZMWdCVF6p2AgNjfRQXTnFHYjweNcO5LlLeSsPVGTSDP7XCfsY3sbrUlvdOHdgoTqZ3DpYYJgX8 zpcv0tkAVsVFXrwZUiRPMwveBFcKRpi5TnvjWboGIdu Y0wkN9duuQsfxBlaCpxd4Wkx6XqYPUlAV7eH41moQTkR3DhohyvYxS2FSj3RTaoVZNdKYpbUV1mdY4nT MBbRUSkTPMyeKI1KeCWvLKpOGjlJnEiLX01cNHwWJVaWNzgc4LzjvFzpqGgnFMjxrUyAVLlYCO7zDCpW E2rQCYxtfcxpuUmiTDwn1OnQVD4gQWgfFHuY4MeznCx tuRoVQRjGT5pC67coqHyQ7FcXIWxhAGqqP5aAEN4R3clKITjGL0oSQB7BQLhd3Aztr84puNxTRdee2Sx XFNmh46pJlEnBN3kttuuv79oHFggrSwlseYzQ1RjfcBzM6fdnouhoc4qRSQgwmtiGWGmIvT3QMA9Kb8o hCXcKCKeuU01zg6egMO5y7MnHN0fB1DaVJD4MEbwZCT xinYIn94hybHjLIYseQUjteWoJFGyvhPtIs3qUGUtfXqbwMCsWZBdt8IwbYvfbs2clYOxWQPsgzuiWPH 9 Disclaimer a3duhKOoRLVqzNSxIiLpSASzWOTum7ndYOJgmZZrQuMoWuGyCeQrEpnfcAXkOVLuXxUuq9wxq782iKZd d3ykDFLkYlH2bAMaXUCwoTMvF330UZIaMQjvw8ntn0RuPWZkiMAjd1J3ZKRSkblwxXp0vAtlQ29bh4Y1 RxegE4xzXQSoDWUzC9VtCR4sDHNeAkg4OIF1WLP3FEI (test code rWVZbR0OtUL9kFKNxdUPkXLr7j3fmhFgmEAQdZIU5a8bsQEkaxlVvEE6aio8wsSw9j6cathLbUDYjHCF qxETOPQWqV5AysPqiXa2tkGg5qGvcDeygMTA7Qzm5EB2rde80phl2pGojMPAwdaeyWdU4GLczHGTrspp dJLq9NHitSWHeySJ7ULHezEUtO2GgMXJsXX9iylt3MQ = 9844) C8MDhcIRTfKjZ7ZSMcaHHsDGIahRbeQWaoo435KYB9IcYyFM7yD7Bll6R6tE8dwIZlJLQvbMGsXoGwQR Iyoe1neWUiPNirz1OuSWK2biD2zRWqtWZwEYZsXV02Gsbqd2FwQljtFKG2SBBamzPxa9Bno1prIaQqqf QlL2ixL9HlPVUpEZDeIWHrLxXkjmGfp9Alt0XkhCVxl De3j3bkQAWvPXFsfZbtl1gxYNN5VPZeO4R5dWXrw3wcPTjyFGWotKM6jeZ7XPBskIGdV0KoxG5hEJPnF Y6ypzf4p2dnWMR6GWnuMCRgBaB6bjM5OWEukTJdGDKprGfnLVvhb788QQG6JpCwLBGog4XbZ1PkcGnzR 70aoAddX70nFJPupIjfxR7vnZxmcZ2mIrXgRxAhSVdc dMplvKQffbvlFSglmoY0FGrjpqhsXDIfJKygH1sjDvXzPWKaiKvsINmwj5HrZZDqDXHoHyfpcpL3KEJM e87kBWTcu9TpFXGnzN2djPUcCKbsvgWtsJO7FYscmxUdTgKvglIdYPOuwY4yABIsOD3cZMNdypLlmh3x jtRcMUWwTEGjJ6VoxppehImapsFeJQFdmb8varKlAGG 4FWTVIK4PCOEaXIJek23pOYElwIlqoD7dbMOchgVlFSCem4ZoxA6onVQYDGHpU2ljYC2qUObpu6QwxFQ wtIInaDN1OKApr4DgWhNwfwCaoFMbkERoT6UtqVhxZ7tnLPKbRRWlhrUehTSsh5DvXOMmrNS2qUNpFY1 JInUTg33aBGMrUSDZulRmTCLjwIauuWZ2rpQ2kK9eOd MJMjMgpVJtqLCgQzprGXBcl123ev3ixiB8CZCgYIPokvwxd2SwOOQuEYBmiU55MVAxHQMbmx7cyfsquB AnidCrS3Kcecj4bE9iCGDzNVogMULfYZYzRiEbxLRvLgArFeNjpPytxFseBIifImQjZNUwTYfkZ3nsGf FcZnMyMlxwYXJ9 [facility] 2022-03-26 23:58:33 Test Item Value Reference Range Interpretation Comments Materials Received (test u0yudQEhBDApxGIsVbRz code = 9973) SZAqMTQjz8wpTLZvnHXq ZzEwMzNcZnRuYmpcdWMx TTHlAzWzi5taw911gKHw m8deQFMjVjS8xOSfIAFv bHLpU421ZAZcQOive5ie c4CcNEFmtQRiy7H3JDGC tvtamIf3dOjiQ32ng6A9 IvheX7slFFEzDHItP5Pa KJ6lCDDfZbr4AFD9WHB2 EFJvLQKwN1OgHP2vBQYs mTRrBTo6r1whbQieFABq KKB8j6zsKKzffqFuGS6q hs8feVb9j5ymcqZdDNWe HXQfzDIGSUUxA8LcsNrr Ug1dfTj7xVkaGxtrMBH6 Bdq2NF3phb16fdc4uUma EVLrydorTiW4REssGHXu odzsQKq9EMzxFJZepOag MFxtYXJncjcyMFxtYXJn lNV1KBGmqPYqU2JjFTQa YMqlVAOdvhj7CxNbBy3f uNBcmWxlNYzox1qaw6yu kXUgRfn8AGKeBjKvJjnm FQpga7Zqq9hnAIUriv8l NYI2iKKttExpj0D1bCFf SJVhqUVkjcOpJHHkdn38 fVVoxDUinNJxrt5fyiDj aTUcwIQoKYE9tOSixfDm ZUXfoWCdPHDiQX7swMXb CQSwjU8rkzxhDQQqPaZa mmqyZNVelMmqttXvEn4d vGqgSEX7GJnsL9ijrB1w MuJ6GScuB4qmkN1uGEt7 QQtrtLQ1QSUtsE1eKY6y aimyx9rfRnWgPT0erxee l9ugHeUfNT9bizp5q5or NMQ7DEwnYQVvNoT9ucQ7 NDBcaGVhZGVyeTcyMFxm p657YOC5ZsXhOSBqc3Wr C3GjpIleC54muWieD56d ETEhlZhdsZ9utIzwqZ3g KtLpClAuELz5gb20ULm8 xxdrcZwpSHa7naXmYXJd XHX4BRAjhCWdIERaJ5g1 nvCeRARxSFU7FRRssNYo UERqF0y9yfXxZXR1AQb2 cnBhZGRmdDNcdHJwYWRk YjBcdHJwYWRkZmIzXHRy iKBshGXkuJIgyS6vvKrm CKDzyVQimW9wPZL1MOIf cmgzMjBcdHJoZHJcbHRy mm65LDYhbmUtjFBkcZvo lDBeMHW6KWOqFWKmJQXx HLQ5JZUmMpNdlfOhFQlc bGJyZHJiXGJyZHJzXGJy EML8RYOtRuHjsuGwBJwo bGJyZHJsXGJyZHJzXGJy OZO1UUThFuWphyDbASvb bGJyZHJyXGJyZHJzXGJy HXA3ANAjElAzyxZwPDxe bHBhZHQxMFxjbHBhZGZ0 J2mrjFGqYADwSBrdmXLg NKKvT6hewKKkQRbhHAQq cGFkZmwzXGNscGFkYjBc I1thPQQbPsKsC8YtrOf3 MDAwXGNsdmVydGFsdFxj eXQpUCL8YWRgYFViTSLk MUI1MAJiZjFjvkIoOByx bGJyZHJiXGJyZHJzXGJy FMB9TIShHsIczrUmZHnq bGJyZHJsXGJyZHJzXGJy IZZ7FHAwJeMlajCePMja bGJyZHJyXGJyZHJzXGJy MCL8CLYyMfGtoyIeWWdd bHBhZHQxMFxjbHBhZGZ0 W7cduJUdWMPdUOhtoCQg EUIlD7wgrWIkRPqqVYOf cGFkZmwzXGNscGFkYjBc E0nvWFVxNmMeY5ZbtXd8 NjAwXGNsdmVydGFsdFxj kHWlSLY1SCWeCQAuWTBu LZE6UTUzJaCaxsSvXOeu bGJyZHJiXGJyZHJzXGJy VJY7MKYsLsByfmMkWOti bGJyZHJsXGJyZHJzXGJy AXF1ETCpQsJgnvCePStk bGJyZHJyXGJyZHJzXGJy VZL2AFTpKhBelxRcCEcy bHBhZHQxMFxjbHBhZGZ0 T8qewTGyAUFqBLxblIOp LDHlK1vqhDFlKUspMJQx cGFkZmwzXGNscGFkYjBc O2xkOYCnDgWgX5ZssUt2 MoQwQFHrfuAzuT56Qplj h0FlAYLhRVU4AUczVWtj bFxwbGFpblxmMVxmczIw AVcmeoleXCPzJHpxC5ps DuGlBVVtcGgiCXglf9Ah XGYxXGNmMlxmczIwXGIg QZOhPGTneT3vUkejG0Lm uN9yRMnpJqjfX3yrKCIs w5SctB1pDVprnAGrvjqt MVxmczIwXGxhbmcxMDMz JVobO5lsJdEpRYUbkTef FCnxl1RlQKWgXFUgAzeh hnUpPJf8axKwRBEfiNht gZIxANpeqqHqoNdlh3Sb jsIcpYxeNDClVBv8htLp tfxjdCb4vMMilYerAVFv yGvedH9tEeTiIyUaRUxn bGFpblxmMVxmczIwXGxh dcixWGSnQVbfL4hmKfJl NNRlvKmpNBdbq9FvGUHi FQQvTbqjurDkAXPrA26z bGVjdGVkXHBsYWluXGYx XGZzMjBcbGFuZzEwMzNc aGljaFxmMVxkYmNoXGYx ITqwY0trOqUcG5OqWXYr OkKrmHYgO9dgO5EtfUlr YXJkXGludGJsXHNzcGFy GRE1rFBpcqPnqYLqvVSm BAGtGRhuHGN9xARzunft wJHycezuOYcdytK0TPAj YWluXGYxXGZzMjBcbGFu ZzEwMzNcaGljaFxmMVxk QnIsYYInBSufX6gjYqIg B8SjPLTrGaOtVkDWOCHe aXZlZFxwbGFpblxmMVxm czIwXGxhbmcxMDMzXGhp Y2yzXnCgRYOcwAqwLDyp e0WeXPPtYPAhLqrdigYf WFe8yaDrLBHgdNqkoI07 Tggpja25RKAdm2vqEHUh W4FtoVQkIDAumCXfCXhw MDhcdHJwYWRkZmwzXHRy cGFkZHIxMDhcdHJwYWRk ZnIzXHRycGFkZHQwXHRy tZSyPVM9W7z8rzFiZHSc EEn1ysWzFVQdRcZpgKOx ARM6OYu1CaoblyX9yOQz Y3j5CzqcafXwTBvacNDg xk42ZGLqchOonUTbbWbb oIMmAGS8INKlPGYaOXVu SLO5MPIzDxSyvuPpVMwp bGJyZHJiXGJyZHJzXGJy QTT3BPFkNvAjqoJbAKhg bGJyZHJsXGJyZHJzXGJy QCS2VTQuGvPzxeKtGCrm bGJyZHJyXGJyZHJzXGJy OEV4PHCbHmTxqtUxKNqb bHBhZHQxMFxjbHBhZGZ0 P7cveOZxYYDkDObipVVm EPOlF0esmHLnCAsaYFOe cGFkZmwzXGNscGFkYjBc M0zfEFDjGxSnD2YhgMv7 MDAwXGNsdmVydGFsdFxj kRDtUMZ9CXRzLWScVBLz XBU6BWIdYpVkayElQXvp bGJyZHJiXGJyZHJzXGJy WUB2LOLyQdRqehNyXKxn bGJyZHJsXGJyZHJzXGJy FIX1WULfQdCcygLhABdr bGJyZHJyXGJyZHJzXGJy VSG8KPIoVxKvmwEwTXeo bHBhZHQxMFxjbHBhZGZ0 R7wtqEQkRLAqWDrxiUVc YWPbO2ypjXQqLVbmZVXn cGFkZmwzXGNscGFkYjBc F1ysSSDoFnStP6GzoTx8 NjAwXGNsdmVydGFsdFxj xULbSGC4MSSrKMAyIUGp WGQ6ZAHhLgYqwtBsALlq bGJyZHJiXGJyZHJzXGJy NSO6BBNwRmLtfhCqTRfe bGJyZHJsXGJyZHJzXGJy DST9UEAzVtJvwtGmJCcn bGJyZHJyXGJyZHJzXGJy CFC0JLQpKcIosjDdIBde bHBhZHQxMFxjbHBhZGZ0 Z8gouAZdFISgNOisdVIg TSDsL4rnhYEmQPqrLOUb cGFkZmwzXGNscGFkYjBc L1anNFFpAgGiT3XnoWh5 XpFaFYSvbqDerW30Ciak d4KwRGGhNZQ2WPdnCFqr bFxwbGFpblxmMFxmczI0 XHBsYWluXGYxXGZzMjBc bGFuZzEwMzNcaGljaFxm YSlgTcKvQTPaGMmdS3ql JkFmK0AhFGNfYsKlEG1n N4WeDnDsUxp5XKmbILG5 UKPGGAVkRIZBM0ZZZntk ZMXBP6DrxJzoyO2fQqIx XhRuZPfgJW1tVKAmN3zq uPNgVAYcNPXuQ8cwGfQd vQ9teQjnJMbnNqIiIvNb MFxsdHJjaFxjZWxsXHBh sbLwcB39Tblya6ScCYZr ZHA3JWxfMPkbxPwrjAVi bwauEHtdwqA2ONXwZQcv XGYxXGZzMjBcbGFuZzEw MzNcaGljaFxmMVxkYmNo OAEvLCggE3suWlNzX0Cg ZPHhCgLeZIBoZq1uJIJq XHBsYWluXGYxXGZzMjBc bGFuZzEwMzNcaGljaFxm KIbeKrJoSYSpWMlaX7tc EkHuU2EaMVNgUxVmvBVw G3xoW0TqxFvqCJNeYQka oFCzEBYexZBuSJR4iDYx niObtMtdsMobbG1fOgPw ZnMyNFxwbGFpblxmMVxm czIwXGxhbmcxMDMzXGhp X3abTtCcHJNckLzqTJpc a6FjUUBgFVDdHakjhhJd IDUvMTEvMjAyMlxwbGFp blxmMVxmczIwXGxhbmcx DJLxKJldF3wdOwBkSCPe eImbTBkaj2IcPXKmNMNo NwhszrUeFOv1ktIaWXQa aCwraQ83Fzxwoq17MDUs jyAsf8XbSVZeTYH1NPzn MFxxbFxwbGFpblxmMFxm bbJ7FXYdKUtkQRRxKOEy MjBcbGFuZzEwMzNcaGlj aFxmMVxkYmNoXGYxXGxv H6syCeJcTaBhEJocOYI8 Addendum 1 (test code = k5umhKItTJZvaXT3LzBt 37) ZXCut1wct2NueDYnxWCw DQkqsXIfryAato65yMC4 gB11WC1vVBZxAuM0JXKb yvD7Sfu7OOHlGCAraVDb B325t8mhk2tzgrBziVH5 TVFqNBTvP4XoJF0rJIQn pEXjG96rnLKfZMY4VXRm VXWfwFWfOBMmVUH7KLSy iPFgE7mjCQJoGO9tmnly BRkxRIihIFKyfJJ1BSKd mIXsF0LyTVEoKSzeUDOs uxp6LmGaBe7pnLRoqFve MFxwYXJkXHBsYWluXGZz FtQdC5ZxSF34rVQzVIJs OWVMUGFjWRS1VZg5YIMa KBCBTxvaGOKGBH3QC1Fv DAVxUKVBABTsm8leBYT7 GEOeo92wXXAkVx4bCCMy KTpccGFyXGNmMFxwYXJc eGs8KeUwsOwxKyWhJRQc HUPCyYNzglksap1fxXwg gsnza5GqN4ZnCkyabDL0 IHgyOlxwYXJcbGkyMTYw RXUbTUiqTOkbbJ2fNTSm IEJpbGUgZHVjdCBhZGVu c23etgweGT0vWXHbwyBy BB5uNSXhSZUwogYNgoSb IJwnT04aglO5RNmnSG63 aWZpZWQuXHBhclxwYXJc cGFyZFxwYXJ9 Diagnosis (test code = f7hcpMVrPIOcnUI4DhPm 34) ZGNlh3zkh0PwlESlrKRs OOnpeZWegeJkmi05yZL2 qF41LO3mITAeEuX8HIPo bsS5Ylv3FABaMEXyaZPh E222u0ney7exqyMdvMU6 PKOeUPWcO5VjYE3bDHAn jGDrH82rcGYoDLB5TNBx NOYtjFTcYYXhJCT2RFLj xWHeP5xsVEGdQM6pleuo XQckULavBVEiyNT6WDYu aENwR6IwHZZzNHroAHOc ozv5SwQdVg2kcJDnxEdz MFxwYXJkXHBsYWluXGZz VwWtX2EhPY97mEQwAILd WSCECNXmONC7YCy3OSBh EUQNXvruSYNETI7IJ0Qj BJIdTMVXMSFpv9aqCWJ1 WDTzh45pQLPvFc2bUMUt KTpccGFyXGNmMFxwYXJc xLv2PrRstYteFrEhISBw QZjwwjPkuH5ew9g6aVOw PZKgaaDlslthXX4wn2Yj MZAqG77swnZprFPhCIIi A6Vpy886PKKcnkohdVQd NjBcZmktNzIwXGxpbjIx MaXfBbSndZyjSLV0kg2s LLftFrntpq2htNLayGmw bGluaXphdGlvbiBhbmQg lwTdJ5LyEOQbtHGdrIuv ZXJhdGlvbiBpbnZvbHZp tmnzbRFuQF49SUSvGhHy OOTeVI3wNKHdd4KdGZKu mh7xHG4dZMLfFDXbx94t SM41AASlCDssCZKuCAAn k3Fmt7g7NAUjIeXvY37o KFBlciBvdXRzaWRlIHJl tB4kwYljtWReWE9dGKFb uJ4zuQDwv3JoVMXkktZ3 nA6fhuNcdfHgOG59BOdr LzEpLlxwYXIgUmVzZWN0 wS3wDA3eauucpmYmJOKd WMEjh5QjjFRoq2OmYDEs ztVBnuEgcKEti9AzlJRz c15saWaoQl69JIglsRLn b8LoCwgqQSRkwLHrQNld VpBqMFEgMBavwJ09UcZl Ss1nIOWuVM06TGY1ZQEz kY9of1r5RPFvyfk4XDXu SHlhbGluaXplZCBzdHJv tCGfRPWce9qzRoGtBIOp y33oEVdlHDXxY89ztDHp dCAjMilccGFyXHBhciBD MrLNlPYyiixxni3zxEcd xpmlo0KqD7IzYjvnnYA3 IHgyOlxwYXJcdGFiIFRv ZGBlJSFdZ79lFVTotFAn MkouJ2pjkOF2eK4nk5x3 EOnqhLUgw0Qaj0FxCXZj HFNjQBHxTEHvuW5vpXaa XHBhclxwYXJccGFyXHBh cmRccGFyfQ== Comment (test code = h6opbOAqRGNwfIO1KrJm 9835) RTHaa5xqb5KkuCQzbPCj VKqubZJdwtCuet28jJU2 hX71FO6aZLVvHiJ1WKIy etF1Snw1IWKbYIQyrKWt X118d0zza5dwfsQrbKF1 qPetFDMcorxgTzD2EWsz DEWzrtxlUOp9MKziSOHt iRS6TSXjsMLnQ4PxBZNz JM7ubwh8HBR6GAgfXWFi KpV9HMRokRDqPHJruWhx TXezi251WJX1RoAfHGVq wvOneVevsN1uKrMzNAIp OWiOaTJtiMH2NOMnhA1m wO3sqEugbV2qjFQzwXRg mOGfdHAyuhHuv3abmoH4 bIO0RSGyJFXqgPAuuIJr IGNvbXBvbmVudCBpcyBu YZprnDc6MDQdm0WiQyI9 AX7wZTMxjyhcAFgobRHi QLSvURT0tHJye0Yjk80y SCZVJwjvOFMPHSL1VTRo ARVmkU7vHNIvy964uQSg iVNlnWVkSRF2bO9rXCQT SzEsIFNPWDEwLCBmYWN0 p4YuXxwRSQIsGYFxnfWh Z5RxBhXlLMFFNXV0EKok S3grkDtwnNJumkNcQ8Kp ZDDvQ0nsui9grTFbBBWz lIAoXHXjekJEqSEdh8Np meGrkFCzsI1lzI0sleBj saLatXnce3Lzk5QhMNGy QB5sP10jrVLzF1Aogfqm HxV9JRi1FTstEWJdEOjm UN8ruW6vALChDBUwQKXp aGC6ZuKAwTBqHZgwCnMh TY60aNOmRQWlVQgnj8Hm cyBpbmNsdWRlcyBhIHJl ADM5hIGjOI9mACXjauqq lmGglUYmo0IlPCQ1gHWk dWJuU3UcluQdtiZhYIDq DK9bM21okyEfS3PzAXLq cWHhwW9bJIP3X5nuRCNj KU3fAWA9WLHqp3Voyd33 esFyPJapu2PnKOJdk97s OxBbKC4dkvnpq46dMPrf tQqvvyOrE6SqssYhQ3hl mqqcej9oHLXvzwcpQYVl RpI9MEH7Ab1lzCGfLZEd bP69lq2ibAY5i7OoTI5o L7TjBUA8ETnoSWYuzkEB c37bwxWoJPRukEEysaGu GHSzgzSoYw4xCNQkrHgz dHQsEEHnl1LbvSxvxp1w cGFyXHBhclxwYXJ9 Disclaimer (test code = o8ozfVGiYEKkmWWeTjPz 9844) EUAjZWVfz7eyQOQmpPNh ZzEwMzNcZnRuYmpcdWMx UULsLqQvc5jru635iTXc r8gcFLTtExO4zUMwVTZe iLYdD528ZEUxITsns5hh q4VpFIVokHHxc1R0VHLD unadsHr5eCsuR93kb5N8 IqvwQ0uhGMHzWBReW5Kp VC9qQGHlRuu4LZK8RYS8 PXBsRREnV7UaIP6mKHWq wBQpUDz2c2dpaQeyXDJg AWB6y9qrLDmmxpSoEJ6l nt3gqZq8a3gcziCsLXYl LHXgyWRPIOJjP9PnwHcd Qf9mqSj9lGyiHzxjIVU2 Wtl1PB5fyk40kwa4vAlx PFZolhecNpF7HGwzCHFa trinEIa6QIayZVXavTV2 JGAsiEIeR9HvZFNrQS2s ezc9CXQ6VGhrXKOfLeY8 NDBcaGVhZGVyeTcyMFxm r435SIG7JoXpBB1sN9Bs b2I8qZ7pdDPtCZFuqSFc KzWgULItdv3ttCOlKTvo l2EkPNR6pqF3pAYzlTOp SVXsPJ52Mzjdm8UwXpfo QFU4QFKejiAto5Gcd4ij GzAzcyYlY5lwL0MeVCTn GUZpDSCaQmMsxwIzp6Ct s5UbwZGycUh9h9xtVDKl QMBhzUozr0jyVZM2WMCe B7B7qOGxk2zvVGseFNEj lIE5imX9FSEneBWiX3Cn bU2fZQHcEY8dxjt8f9ky YZO9TWvzGDWqYdK9qiQ9 NDBcaGVhZGVyeTcyMFxm t649ZJG1FdQjSHTiu8Kc V1QvoPdwK45yfYlbO64p IQImmIctaO2idAwfoL4a ZjBcZnMyNFxxbFxwbGFp cuvfZZlotzR9EXuhgllo RYKpTNqmG0raSpUoRODe oZdwDCyhm7AcZISnKUGs QfczzaN8WFDYd75iEDGn k4NuIPKmjT5dtBTaMWkx jeLxyBS7MGhvqlSjVqLp avUjBVRsuR5bRHSnPQ5m YFEjfaWopa3ugpGpHDTe AQWsH4DbdxdzfQzofoAt LJEkxz0zssQhUAD8XYDI NU9PKIAiPRUtw35qJOKq zGyygQ3bfQVzngNrAQCb u4ZyzW4lyZENAMWjS0eu DE4fNPtng9EksMOuzJVz qOB8BHOhy5VoSpWhftZn pEWsfCCpE7AqzXcyY9cr WWVlVCBwquHwzHHhh2Of EDSjoLC0cOIyAR6GYyMT g60yILPqDFHSamAaMLSu fTtsuHP7dyE3mP2mCxHE ZiBhcHBsaWNhYmxlLCBj a028bo3nvuT6PKPjTNMe jqzjx5KjTRZbLJSugC33 RLEpDOOosd3fizaioOUk ltZoP0Qomfn5aQ7oSRSo YWluXGYxXGZzMjJcbGFu ZzEwMzNcaGljaFxmMVxk TwReUJDvAHmzN0fbAnSv ZnMyMlxwYXJ9 [facility] 2022-03-26 23:58:33 Test Item Value Reference Range Interpretation Comments Materials Received (test j4lqlAYnJGSahTKpGfHb code = 9973) KOQeMKBrq8gjJUOggPEp ZzEwMzNcZnRuYmpcdWMx JTKtSgRco7azy367jETs w8dbIMCcLvZ1vMKlYGIv jIRdQ335KWLxFPkqi5sc d3YlQIMecIYgo6S6DGPM mazbqXr5wYhtZ92vk2I7 DtxpJ5qkIVZtEQFqM7Dc YS4qESXuYzy4GNP1NMS4 WSJyESRnZ3AaEI7bFYRt oMVwVEw1a8nusRpaFGWs SZY5s7hoPClcuoBvQO4x oq5weSp7o4rfdtSdKPTb ZVTtaFCIYSNoH0LkeNet Xh7vjXc6fJeaKedrJDN9 Qtr9WS9evx02vrq7lScy NSAidcoyWtV8IHlcNEKk dcajHNh0FChmLRIefZir MFxtYXJncjcyMFxtYXJn kEC0GXPhsCVoV3JsAWNq NXkpERZedzh9ZuFxVk4s fZVouClgZVvxt6yoy5rt hLUvUpy8EDPiEnOlWjjj TSqzr0Wgv3mrRNXfeg4d FBM7aQKxuRdxu9B1mBHr CWXxzGVqvrJsDYMtcp84 pVEprFJupGEdkn0lxvWi rVFzcWFoFUR7xGMgukOl ONAgcUVfHABrBP7eyMZy GCLwcG7pojpmUACvBhEw ccjlABVbkEdmfyJhXd2m fKbjOAV4UNqaK9aaaL0q MtC6NQlkU6hszB4vKYl1 JVsodXO7RYUxcF4aTL4e xpvfm7bxFnQkMR7ufbgj c6abFvIxNY7lujh7y5qy IWW4MWtwWGTrEmH4qgL5 NDBcaGVhZGVyeTcyMFxm e586FAW6EbHhHVXmv6Qx G2HthTqpM48ibQsqX61y FJSaqWmdwN2vcSmgqE1z HoNgGaRcXNn8mk73BNk7 tqmcmPgwVBb0ujYfRAXp VCR4IUUtoSCiLHYhJ7q9 mdLeDXZxTWU4ZSQvlVKg PXJdK4y2ipLaAKR0ZUy8 cnBhZGRmdDNcdHJwYWRk YjBcdHJwYWRkZmIzXHRy gKDuwSOyqYOtzK8pwDwv BDCwiAHxaJ0eHFD0EVCy cmgzMjBcdHJoZHJcbHRy ve75EVLpteSdfKRudLep jUJeNLI4YVLyNYYbIGYg NNJ9VHBaMsDeqvNiZJlq bGJyZHJiXGJyZHJzXGJy BJC4ZTJbXpBqqnMhHMsb bGJyZHJsXGJyZHJzXGJy PDP2AKPzLrMoliFySCml bGJyZHJyXGJyZHJzXGJy AQS9FHHxZhIschPiTMpr bHBhZHQxMFxjbHBhZGZ0 K7tlpKSkVIMvDFqopXDn RFFjC3uidONgKIrmGXOf cGFkZmwzXGNscGFkYjBc Y6vwSXXmWkEfP5ImdIf0 MDAwXGNsdmVydGFsdFxj uWPvVSO9TCBfXRHsVTLp YKB9RNFcVpCxhpDuAXgm bGJyZHJiXGJyZHJzXGJy PON1RPRpTzRmgbTyNXsl bGJyZHJsXGJyZHJzXGJy OPM3IDHiNmHujlLmRXvz bGJyZHJyXGJyZHJzXGJy CVM6AKPoLkInvbTuOUcw bHBhZHQxMFxjbHBhZGZ0 M5fusZYnTAKdWJwgtBMr JTNmM0eteYWaVHsxLDNf cGFkZmwzXGNscGFkYjBc N5wkSSBdItVwX9WggEp8 NjAwXGNsdmVydGFsdFxj rZPkUCQ8CDUzPNGtAQAt WOO6RIPxXuAgdzJgRCni bGJyZHJiXGJyZHJzXGJy IQP6TVYkVhBoqhVxDZou bGJyZHJsXGJyZHJzXGJy XBZ0UYJoJdZemsMaPIyp bGJyZHJyXGJyZHJzXGJy XOE1NLRzTmQtdkTxVZqq bHBhZHQxMFxjbHBhZGZ0 H5rliKJkARJlNPwmtULr EKUkX8ujxWHeCUtbMIOu cGFkZmwzXGNscGFkYjBc L2eiHZSmDkVtF4MvmLz7 ByYnYXEtyhGjxB00Ndig t4IeCWBzOQY8SEpqQUaq bFxwbGFpblxmMVxmczIw ABtgvfjpKEWfOVviZ7gh QpGzSHIyxOtvZZdct0Ob XGYxXGNmMlxmczIwXGIg FYEjFSUqqP9bZnzaC0Kz fN2wYDvuKypwV1zbUBDe d9ZhaV4iNXlnlKVnuvfn MVxmczIwXGxhbmcxMDMz KQdwR5goFxQcAMPixUvy ZFcxm0IgUYYtXLFuRlnp bkIaQJp7mzWpPGTdsExc jKHsWPvtszAlfNcbs5Md yeYwwPfrOAYlTBe4hxUu zqogwKs5bSPbeLkuWMSg yOgizW6hByZoBqCrFCpo bGFpblxmMVxmczIwXGxh iapeDZOmSWunY3tfQkRa PPJumVdzPEolv8WbGIFp TZPcTbbqakUtSECpT87a bGVjdGVkXHBsYWluXGYx XGZzMjBcbGFuZzEwMzNc aGljaFxmMVxkYmNoXGYx EVafD5byHtFmH9QkWRHd NcIxkGXbB1oeP5KnlRsm YXJkXGludGJsXHNzcGFy XYZ8iCXigvIpfTCdgXYt WYEoKMpwHFM5fZIesbbz zUNqnskhFXmwsgE1IJOk YWluXGYxXGZzMjBcbGFu ZzEwMzNcaGljaFxmMVxk GnBrOFIkEBejQ9jsZtPy J8BzNVCgWhOxLqMWCNPt aXZlZFxwbGFpblxmMVxm czIwXGxhbmcxMDMzXGhp J8bqReNdGFUkoBndJXzh t6OkUMUlLVFvIknjcePm TWi2okTlDXYuzIqtfE97 Tqsviq41JHIqd1auYTBo U4MwoHUyBBJyrBDcQLcd MDhcdHJwYWRkZmwzXHRy cGFkZHIxMDhcdHJwYWRk ZnIzXHRycGFkZHQwXHRy nEWoPWL7R2z9bwIrSPNn UEn3dsKrZWFmPhTrvPRx TEF8KHs4XsndznW6dZKj K8u3BxxczzCfCKbzjQHs yc40EUIlmnOywNDmrMjq tAKsIEC4EHXeZERhBKUk NXE4JLOyJcTzulNgSVur bGJyZHJiXGJyZHJzXGJy QIS9SYMqUyZgksLyVJkp bGJyZHJsXGJyZHJzXGJy LZU4DFDjQzZvtnRxQOms bGJyZHJyXGJyZHJzXGJy LCN1AZMcQiAzvkIfDMdv bHBhZHQxMFxjbHBhZGZ0 G4htjLSgFVBoLKserDRf MKKhM8ybrEXqUZewHULv cGFkZmwzXGNscGFkYjBc U6vuXXVzFuCeF6SquXh4 MDAwXGNsdmVydGFsdFxj rDGoCLT4YXSnDRRnNOVy BTD6MZBmRvQlmvFzPFpu bGJyZHJiXGJyZHJzXGJy KLT5XSXrYiCwojJhTGwr bGJyZHJsXGJyZHJzXGJy VKC7VBFpNwUssvJdOEvy bGJyZHJyXGJyZHJzXGJy QUP1SDQfNiQhnuOtCRbp bHBhZHQxMFxjbHBhZGZ0 R9htsPDyDSLlUTrfwMAr MCPdP5nldTWiSAvaCHQg cGFkZmwzXGNscGFkYjBc J9jmUCRkJdWcI1PgzRz5 NjAwXGNsdmVydGFsdFxj hBEkYOI0XZYuMXVfPXXx JIS3NYGsFjGfoeCpGWbq bGJyZHJiXGJyZHJzXGJy LUH2PZNtNbZkdrOuZTix bGJyZHJsXGJyZHJzXGJy LIK9NXCsSbQtndZvWBfk bGJyZHJyXGJyZHJzXGJy NBA8UTKeZcToxbUbMXcx bHBhZHQxMFxjbHBhZGZ0 T0tzwJGhGBSvEJjcyBYm JTCrW4pkiQRgHDurMOUo cGFkZmwzXGNscGFkYjBc U5asYEEhIjNnZ1DgeQh5 LsOaGMLwcjUgxC00Eumz d9PzLIJqDSC1SCxtPMbj bFxwbGFpblxmMFxmczI0 XHBsYWluXGYxXGZzMjBc bGFuZzEwMzNcaGljaFxm LZpyEzDvHJRcIOyoZ4tm VpUgR3PfIAEzNuLmJR4v F6QiTcYwWnt6UGzkTMN8 QMQEATAsITDLP8YCEvkm KTZKD7UtdCrtgE0lKqCv ZzFbIWhoAH1kBXOiN7je qFPwXNLyAESdH6hhFvTh tL2tgOsjHXsuKeCoNaLj MFxsdHJjaFxjZWxsXHBh joDqiF83Zvliy9HwEDQo PLQ1YXfmJJhuyCajfBBs tmjhNIpjsyV8JVOxKGdl XGYxXGZzMjBcbGFuZzEw MzNcaGljaFxmMVxkYmNo KCAmOIyqI5viBxVbK2Ii PSHzBhEeGBHpTt1yMPMx XHBsYWluXGYxXGZzMjBc bGFuZzEwMzNcaGljaFxm DKjeAwJvPNNqBCukN4qo IdBpJ9BhPUThPzZasAZr D1nqC8FxdSebFJQkTZzp lKXxORQjpFNaEBD1oDWv qeWlhLvvpBprhN3hUzTb ZnMyNFxwbGFpblxmMVxm czIwXGxhbmcxMDMzXGhp O6deHcPtCMOmyOfpVTgz c5HrNZNpVAPkWsqlmmQk IDUvMTEvMjAyMlxwbGFp blxmMVxmczIwXGxhbmcx UXWgXCkhA0bfSyYlSXFx jPepHAvgb4RcSJHxVUMt DjuejyHjJEy9czUmASDf zJqwsS93Mgybsj38UWXy uhMxc7ZpPPRvZTY6ZFms MFxxbFxwbGFpblxmMFxm udJ3KGCqUXtgHCWeYTYz MjBcbGFuZzEwMzNcaGlj aFxmMVxkYmNoXGYxXGxv X5baBjLfFhBaOJxoIEC1 Addendum 1 (test code = p0pzkIQiVJFruCY4QnYf 37) ANMxe0acf3VevKSyzPPs FZbriHOuyvTelk25vJT6 zY70NY2hXIYnIkY0XWJu cmP6Zcm2DQLiYNZptGVx S220v0hal8egepFnjOK5 XHPsFPCnD6FkNU2vWGRm mBYlN34etVWlUAS9QMVa WTMymVSjBKTuQSR8NUAx hKAcZ4nrGBIwIU5cmuru YLlmGWktVMXjnOF8RTVt zFDeY4VpTGHqXJarCBWx kxp9TaPmJr5mqCIchGia MFxwYXJkXHBsYWluXGZz AaFvH5SnRQ65kKNmLGIf FHFLZZOuTBT7ECz7DSCq RZUGOscsMVFKHG2FZ4Kl TYVlMQHIGYMwa7beHMP4 GSCze34cECZyTh3jZXKu KTpccGFyXGNmMFxwYXJc kCc3CbXrdNjoZcIuDOHr KGULyPJeuhtcvm3lvQvl nxfle3XxV4FmAmbitVH4 IHgyOlxwYXJcbGkyMTYw VHIvWRkxWFujsQ1oFECd IEJpbGUgZHVjdCBhZGVu b34sxfwoUJ1fQGWpwvDd YC1cGEEqLHXlqwHJbxUk JIxcE18bdnO5XMwsTQ40 aWZpZWQuXHBhclxwYXJc cGFyZFxwYXJ9 Diagnosis (test code = u9ctaNEoGGBcpPX8DuFq 34) VEIzi2xnp3EmxSHywXEc VFxlzGDhdsFdhf13rGX2 gB70WN6uIZYyZtJ7RRSy tuV6Rqw1CHOfAZNmcLNd Q656b2jqd5pxyxZayRC2 QACdIXJhH6UsTR0eKEOl jRObV18nxMSpWMX2HZDm PVMssXAzNFKvBON2EVJl fUNxT9fuZWZsLQ6gpxyk CGayIRhsNBLecXH3NHKb zSIdF8FqJAIpJPfcMNVx udy3DbKkEx7uwARvoDru MFxwYXJkXHBsYWluXGZz VfSjE7WlWD07zMQxHHUh AXGKGBUaKTU1HWc4VAGy WJOTPcbpOHKYLR7NF8Cb KIOwETGXNZLhl5jtEPC8 PKZsh42qKLOgFz2mCXIe KTpccGFyXGNmMFxwYXJc eTs4HcYetXglMjEqCRSm FEtkwxLvaF9lj6r7aYDj LCKulzSweaszFO5dv9Jr YSBzR30pckWfmGSbHHDs O4Lmx438YHZhrrqfkEHq NjBcZmktNzIwXGxpbjIx DpQxRvVmhTrxLHT1fg9y AYodTlaapy0trQRonSco bGluaXphdGlvbiBhbmQg nlFqS5FrYZVdhOTzmNnw ZXJhdGlvbiBpbnZvbHZp hwgcuXIkUJ87ALSeGeAf WASeMW4eRQRpa4WgJNMh pg4uCM9gAIWtUCEry30p MI68AVEbPPqmQDOhSKVk d1Ubc9g4OVYsXeYuN82h KFBlciBvdXRzaWRlIHJl rJ1baOuywXTbUL6eMEXe fS3cfUIoh2BpPBOkcyZ0 tM4lgmQvlaRwRX26QLtm LzEpLlxwYXIgUmVzZWN0 mV5eXY0knnqjswIdWRSy MMYwy3EiyILac5IcFABz dfSIqkKdaVJan1JalXGj y85udRbgZl03QNnluSHx d9BbSmupDWDknPEkRNti IcZnBUZmOMgvwS38AqRc Et3rOJWcMH11CWO3XWLf yQ6qi1g1YLQixqg5HXKq SHlhbGluaXplZCBzdHJv wIAdCFWch8asTbPcLUCa m52xURvnAKDnU71yrVGl dCAjMilccGFyXHBhciBD DwEUfCPgrhgjtp1njZah jinui3SnT3MaEdsfdAA4 IHgyOlxwYXJcdGFiIFRv JTMtINEyQ58eBECgkRTe TgbsH4ffzPO7nO7op6k4 DAjphTHcr5Bzq7BtOUNo DIAtEXByRIGgtU8faUua XHBhclxwYXJccGFyXHBh cmRccGFyfQ== Comment (test code = o2bapVWxSXZkuBE1JwWt 9834) GRNgz7dek2SaiCJdiKPc LRhanXYuvsHuco86dRZ7 pW72NK8pGPGdKwT4OUIs oyX2Fhz0SJDlCAQxcGPl D476t4ceu2jaitGioFI7 fBsyJEHklowsLhD2TMvb KDQiwxfrTGq4OOkmADDd lAD9FQXquDYuC3KoLKFz KG1nplt9OZJ0IGbaOFKi FiT6RLJzlNGzZYPidZkz BDrod831PVA0NeKyVKLp piSlzFtanG7eCiZjYWQh FApPaFMuqGP3OFRjdC1m qE1obXtnuP4qkFSqoJDl gXYibOWzjiDxp5udsrI7 cYM9HDGeFWRjpGQnoXDz IGNvbXBvbmVudCBpcyBu JXqtqQo5AFZba7YlXeQ5 VD0uBIDxzibfAQsrqCDn FJVmKYY9iQXbp0Nby22v LMKJBpryDGRSIFY9RQSd EOGgrQ3jPCHag215oBQq eDCxnARsPXI9fX7rCLTZ SzEsIFNPWDEwLCBmYWN0 w9PoLofXVVXeORZlcgXr A4CjZaDpUTEALUM2ABea S6uwzTftcALshxEyN5Zj SIFsZ0fiqt4oqRObZDZy aIVmQZSnocHBtSPsh5Kw cmKjtQIthY8jaO3wfmBr idGxaExkg3Fom9OqUUBy UF5mN53knTIjZ3Tnzwdf YcL2SLg3MTnbEWFpGAos ZN4iwL6aESJjSECkOEFw qNH1UoGQiNVeVMpzHeXf WM84cYUwHRIlTLgzl2Nq cyBpbmNsdWRlcyBhIHJl HSM2oZLpEC8ySQHohekx qiZgsSGcq5WrHML5iYRx zXAlD2EucsVdbmNoXSKr VY0qK78naoVqE1OxBMAe jTHtfW9qDXC3G9uuZYDc DK0iIKV6UBKnz9Vegm07 sqLdXBriy7CrRJSmh66n PiYtNP9afcfmu95uPAlr vByijhIqY3RrpbCeH9gv mszdns1jBNQqloiyOHPo DlO4FWZ2Wm2luTPrFVNv vF46sj5ssTT1o7VwWV9u X4FsKXB9GXddFMDzurEQ e74rteEqPXYyfQLwzrKh BKDfecIyDg8gPVDrdEyt kWPiVPNst6BodNvyug4m cGFyXHBhclxwYXJ9 Disclaimer (test code = k7eddHMzMTDkuKKgUhDn 9844) YWVdEXMlw4qdOAFuyPMu ZzEwMzNcZnRuYmpcdWMx WBWxJpWlm9fqw366tUDd f7ynUHKkXfJ5xJRrTMVj vVGyY334TNYuZDhgb0pl i9YaAUGgyYPjy8W6UVBY irfshNx2nUwhU34yq9A4 UfkqC8wgXIVeRVKlQ4Fo XO3xORGyZqt9JYD6WFX8 OHLlTJZwF2OaNU2iLFKl oENdGOs4j2afvWafPGSq DKX0i4fuCBqewjDmFN1g gq4dwHz4a5ilhiMmNHEd MGInyPAJUOGvZ2LjcKak Fq1egGf7jHsfXhvwYBZ3 Wgc3ZZ0jth27cmn9aTgb DCDyxdqtYlB8OVhfPUZp boflOUd4GRuzVXVtmXE2 PWEwpNNaX3IuVJSqHH7u ybx0RCW8LOvlFYHeIyX2 NDBcaGVhZGVyeTcyMFxm d590EAN6YoGaXD4pU1Na v1S8nW4pnSEwSLJbaCEw TgJdBUPiww1jzOVqFSod d1GbQNV2lkQ8xWRlnDVj RREyNC46Iimev2JlBkxm MXW3PXPgtjFfl4Agt4ev YzEcreCwR3svC0HeNZIq CRVuSTCbUhOfucIqu9Dy s0QieLGsbZl6l5vyMQZz UCDecIwar9aeVIR2NSMm X1G7mEKbf4xvXWexDBDi oCW4zaV7HDMheSArD4Ky gN6uPBShSG5gxkf1i9tz HUG0ZEdnYYIwBdM6zxA4 NDBcaGVhZGVyeTcyMFxm f110FBB9DyIuCOZtw0Ax B7CdhNrtZ18urPjmV98a TZXlrEwlvB6xyZsxxZ9f ZjBcZnMyNFxxbFxwbGFp vyatGRqcbjO3LPxsgskz KUCwARwmQ2paCsYcFQVh nLzyDLnwa7ZpBKYxAARx GlwzhyX6VZMBu91tPLYj t0FuHRZtdB3dgPAcUZzd juWypSD2OMavizSzLdHn krJpXFNccY8uADKqMH6r HEBhlkLbuj8gsaSnMZQa TDZrJ3HbsucvzMsdmaPj QJYhwp9wjqJxGGK7MVVR EY9XAKBdPFCfv35uDUDi xTowvJ6amTMvesUyNQRh t5KxlJ3ntAWOAQYkU2dn XF0ySWnzt2NwdFMgeECi yDB0EIZnp3MeOhDkshVp pLEbbQJtL2XifYzhR4rs WBDtGGHgkxOmqBYia1Iu FAJrpXP1tIFlCZ9NLzKA s02mJEZiCYUPdgNlGQBy eWxjaBI7znT2jV9iGfXA ZiBhcHBsaWNhYmxlLCBj e557uw8prrH8TMJfREUo uzanu1UyKFYrXOSznV34 JRKcWRMkpa0mnltosZBg leFbS4Rwysm3nC3vVCAh YWluXGYxXGZzMjJcbGFu ZzEwMzNcaGljaFxmMVxk DtLwPREoMWuqT6yrHdQo ZnMyMlxwYXJ9 [facility] [id number] 22:32:52 Test Item Value Reference Range Interpretation Comments POCT Molecular FluA (test code = Negative Negative 65011-5) POCT Molecular FluB (test code = Negative Negative 34391-2) Lab Interpretation (test code = Normal 79924-7) [facility] [id number] 22:26:40 Test Item Value Reference Range Interpretation Comments POCT Molecular Strep (test code = Negative Negative 94098-6) Lab Interpretation (test code = Normal 51490-0) [facility] [place] ([facility]-19) RNA [Presence] in Respiratory specimen by ADELAIDA with probe [id number] 21:35:28 Test Item Value Reference Range Interpretation Comments SARS-CoV-2 (COVID-19) RNA Not detected Not-Detected [Presence] in Respiratory specimen by ADELAIDA with probe detection (test code = 42003-4) Whether 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 employed in a healthcare setting (test code = 21689-4) Whether the patient has symptoms related to condition of interest (test code = 32759-9) Patient was hospitalized because of this condition (test code = 51417-7) Whether the patient was admitted to intensive care unit (ICU) for condition of interest (test code = 82640-3) Whether patient resides in a congregate care setting (test code = 72370-5) SARS-CoV-2 (COVID-19) RNA [Presence] in Respiratory specimen by ADELAIDA with probe [id number] 07:00:55 Test Item Value Reference Range Interpretation Comments SARS-CoV-2 (COVID-19) RNA Not detected Not-Detected [Presence] in Respiratory specimen by ADELAIDA with probe detection (test code = 50261-6) Whether patient is employed in a healthcare setting (test code = 11522-8) Whether the patient has symptoms related to condition of interest (test code = 86744-4) Patient was hospitalized because of this condition (test code = 56881-5) Whether the patient was admitted to intensive care unit (ICU) for condition of interest (test code = 25292-6) Whether patient resides in a congregate care setting (test code = 84831-5) SARS-CoV-2 (COVID-19) RNA [Presence] in Respiratory specimen by ADELAIDA with probe [id number] 14:44:09 Test Item Value Reference Range Interpretation Comments SARS-CoV-2 (COVID-19) RNA Not detected Not-Detected [Presence] in Respiratory specimen by ADELAIDA with probe detection (test code = 82696-1)
[2022-07-05] MEDS ORDERED: HYDROMORPHONE HCL 2 MG/ML inj ONE (17:24)
[2022-07-05] MEDS ORDERED: PROMETHAZINE INJ 25 MG/ML AMP ONE (17:24)
[2022-07-05] MEDS ORDERED: KETOROLAC 30 MG/ML INJ ONE (17:25)
--- NOTE | 2022-07-05 19:09 | RAD REPORT ---
EXAM DESCRIPTION: RAD - Hip Right 2 View - 07/05/2022 6:56 pm CLINICAL HISTORY: PAIN COMPARISON: No comparisons FINDINGS: AP and frog-leg views of the right hip were obtained. There is no fracture or dislocation. 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 No implant acute finding. S uperior and inferior pubic rami are not optimally visualized but appear to be grossly intact. No path ologic change. No significant soft tissue finding. IMPRESSION: Negative right hip examination for acute or significant findings. The superior and inferior pubic rami near the pubic symphysis are grossly unremarkable but not optima lly assessed.
--- NOTE | 2022-07-05 19:19 | EDPHYS ---
Physician Documentation [facility] Name: Adelita Lemons Age: 61 yrs Sex: Female : 1960 Arrival Date: 07/05/2022 Time: 17:03 Bed 10 Private MD: Ignacio Mckenzie ED Physician Gissell Garcia HPI: 07/05 17:23 This 61 yrs old Female presents to ER via Wheelchair with complaints of Hip Pain, Back sd2 Pain. 17:23 61 yo F presents with CC of R sided hip pain and low back pain. Seen here yesterday by sd2 myself for the same symptoms. History of chronic pain and herniated disc previously recently exacerbated. Pt denies any significant change in pain or location since yesterday. She reports it is better today actually but when she takes a step with that leg she has pain in her R hip and is concerned because she has had a hip replacement on that side. She is on pain management and has home oral Dilaudid. She denies any fevers, weakness to legs, saddle anesthesia or bowel or bladder issues.. Historical: - Allergies: 17:08 Amoxicillin; aa5 17:08 Bactrim; aa5 17:08 morphine-vomiting; aa5 - PMHx: 17:08 GERD; Hypertension; aa5 - PSHx: 17:08 Appendectomy; Cholecystectomy; Fibrous mass removed from abd; hysterectomy; L knee aa5 replacement; R hip replacement; right rotator cuff; - Immunization history:: Adult Immunizations up to date. - Social history:: Smoking status: Patient denies any tobacco usage or history of. ROS: 17:23 Constitutional: Negative for fever, chills, and weight loss, Eyes: Negative for injury, sd2 pain, redness, and discharge, Cardiovascular: Negative for chest pain, palpitations, and edema, Respiratory: Negative for shortness of breath, cough, wheezing. Abdomen/GI: Negative for abdominal pain, nausea, vomiting, diarrhea. : Negative for dysuria, urinary frequency, hesitancy, urgency and hematuria. MS/Extremity: Negative for injury and deformity, Skin: Negative for injury, rash, and discoloration, Neuro: Negative for headache, numbness and tingling. 17:23 Back: Positive for pain at rest, pain with movement, radiated pain, Negative for injury or acute deformity. Exam: 17:23 Constitutional: This is a well developed, well nourished patient who is awake, alert, sd2 and in no acute distress. Head/Face: Normocephalic, atraumatic. Eyes: EOMI, normal conjunctiva bilaterally Skin: Warm, dry with normal turgor. Normal color with no rashes, no lesions, and no evidence of cellulitis. MS/ Extremity: Pulses equal, no cyanosis. Neurovascular intact. Full, normal range of motion. No midline spinal tenderness, step offs or deformities. Normal sensation to BLEs. Normal strength to BLEs. RUE in shoulder immobilizer due to recent rotator cuff surgery. Vital Signs: 17:08 BP 153 / 90; Pulse 87; Resp 16 S; Temp 98.0(TE); Pulse Ox 98% on R/A; aa5 MDM: 17:05 Patient medically screened. sd2 17:23 Differential diagnosis: Spinal stenosis, epidural abscess, cauda equina, fracture, sd2 sprain, strain, herniated disc, UTI among others. Data reviewed: vital signs, nurses notes, old medical records. 19:17 Counseling: I had a detailed discussion with the patient and/or guardian regarding: the sd2 historical points, exam findings, and any diagnostic results supporting the discharge/admit diagnosis, radiology results, the need for outpatient follow up, to return to the emergency department if symptoms worsen or persist or if there are any questions or concerns that arise at home. Medical screen evaluation completed. [facility] emergency medical condition absent. ED course: Imaging reviewed with no acute abnormalities noted. No red flags on history or exam. pt with some improvement after treatment but reports she does not want further pain medication at this time and is comfortable with being discharged. She will follow up with her PCP and pain management tomorrow and verbalizes understanding of discharge plan and strict return precautions.. 07/05 17:21 Order name: XRAY Hip RIGHT 2 view; Complete Time: 19:13 sd2 Administered Medications: 17:25 Drug: Phenergan (promethazine) 12.5 mg Route: IM; Site: affected area; hb 18:44 Follow up: Response: No adverse reaction hb 17:25 Drug: Ketorolac 60 mg Route: IM; Site: affected area; hb 18:44 Follow up: Response: No adverse reaction hb 17:26 Drug: Dilaudid (HYDROmorphone) 2 mg Route: IM; Site: affected area; hb 18:44 Follow up: Response: No adverse reaction hb Disposition Summary: 07/05/22 19:19 Discharge Ordered Location: Home sd2 Problem: an acute exacerbation sd2 Symptoms: have improved sd2 Condition: Stable sd2 Diagnosis - Acute on chronic radicular right sided back pain sd2 Followup: sd2 - With: - When: 1 - 2 days - Reason: Recheck today's complaints, Continuance of care, Re-evaluation by your physician Followup: sd2 - With: Emergency Department - When: As needed - Reason: Discharge Instructions: - Discharge Summary Sheet sd2 - Chronic Back Pain sd2 - Back Exercises sd2 Forms: - Medication Reconciliation Form sd2 - Thank You Letter sd2 - Antibiotic Education sd2 - Prescription Opioid Use sd2 Signatures: Dispatcher [employer] Aline Alexander RN RN aa5 Perri Mack RN RN Gissell Garcia MD MD sd2
--- NOTE | 2022-07-05 19:19 | ER ---
Nurse's Notes [facility] Name: Adelita Lemons Age: 61 yrs Sex: Female : 1960 Arrival Date: 07/05/2022 Time: 17:03 Bed 10 Private MD: Ignacio Mckenzie Diagnosis: Acute on chronic radicular right sided back pain Presentation: 07/05 17:08 Onset of symptoms was June 2022. aa5 17:08 Chief complaint: Patient states: seen here yesterday for right hip pain and pt reports aa5 "I just want the pain to go away". Coronavirus screen: At this time, the client does not indicate any symptoms associated with coronavirus-19. Ebola Screen: No symptoms or risks identified at this time. Initial Sepsis Screen: Does the patient meet any 2 criteria? No. Patient's initial sepsis screen is negative. Does the patient have a suspected source of infection? No. Patient's initial sepsis screen is negative. Risk Assessment: Do you want to hurt yourself or someone else? Patient reports no desire to harm self or others. 17:08 Acuity: CRISTAL 4 aa5 17:08 Method Of Arrival: Wheelchair aa5 Historical: - Allergies: 17:08 Amoxicillin; aa5 17:08 Bactrim; aa5 17:08 morphine-vomiting; aa5 - PMHx: 17:08 GERD; Hypertension; aa5 - PSHx: 17:08 Appendectomy; Cholecystectomy; Fibrous mass removed from abd; hysterectomy; L knee aa5 replacement; R hip replacement; right rotator cuff; - Immunization history:: Adult Immunizations up to date. - Social history:: Smoking status: Patient denies any tobacco usage or history of. Screenin:26 Abuse screen: Denies threats or abuse. Denies injuries from another. Nutritional hb screening: No deficits noted. Tuberculosis screening: No symptoms or risk factors identified. Fall Risk None identified. Assessment: 17:26 General: Appears in no apparent distress. Behavior is calm, cooperative. Pain: Pain hb currently is 10 out of 10 on a pain scale. Neuro: Level of Consciousness is awake, alert, obeys commands, Oriented to person, place, time, situation. Cardiovascular: Patient's skin is warm and dry. Respiratory: Respiratory effort is even, unlabored, Respiratory pattern is regular, symmetrical. GI: No signs and/or symptoms were reported involving the gastrointestinal system. : No signs and/or symptoms were reported regarding the genitourinary system. EENT: No signs and/or symptoms were reported regarding the EENT system. Derm: Skin is pink, warm \\T\\ dry. Musculoskeletal: Reports severe left hip pain. 18:30 Reassessment: Patient appears in no apparent distress at this time. Patient and/or hb family updated on plan of care and expected duration. Pain level reassessed. Patient is alert, oriented x 3, equal unlabored respirations, skin warm/dry/pink. Vital Signs: 17:08 BP 153 / 90; Pulse 87; Resp 16 S; Temp 98.0(TE); Pulse Ox 98% on R/A; aa5 ED Course: 17:03 Patient arrived in ED. am2 17:03 Jose Antonio Currie MD is Private Physician. am2 17:03 Ignacio Mckenzie MD is Private Physician. am2 17:04 Gissell Garcia MD is Attending Physician. sd2 17:07 Arm band placed on. aa5 17:09 Triage completed. aa5 17:13 Perri Mack, DISHA is Primary Nurse. hb 18:30 Patient has correct armband on for positive identification. hb 18:57 XRAY Hip RIGHT 2 view In Process Unspecified. EDMS 19:19 Ignacio Mckenzie MD is Referral Physician. sd2 19:23 No provider procedures requiring assistance completed. Patient did not have IV access iw during this emergency room visit. Administered Medications: 17:25 Drug: Phenergan (promethazine) 12.5 mg Route: IM; Site: affected area; hb 18:44 Follow up: Response: No adverse reaction hb 17:25 Drug: Ketorolac 60 mg Route: IM; Site: affected area; hb 18:44 Follow up: Response: No adverse reaction hb 17:26 Drug: Dilaudid (HYDROmorphone) 2 mg Route: IM; Site: affected area; hb 18:44 Follow up: Response: No adverse reaction hb Medication: 17:26 VIS not applicable for this client. hb Outcome: 19:19 Discharge ordered by . sd2 19:24 Discharged to home via wheelchair, with family. iw 19:24 Condition: good 19:24 Discharge instructions given to family, Instructed on discharge instructions, follow up and referral plans. Demonstrated understanding of instructions, follow-up care. 19:24 Patient left the ED. iw Signatures: Dispatcher [employer] Flower Padilla RN RN iw Calderon, Audri, RN RN aa5 Perri Mack RN RN Lakeisha Ruelas 2 Gissell Garcia MD MD sd2
[2022-07-05 21:34] VITALS: BP 153/90; TEMP 98; O2SAT 98
== END 2022-07-05 19:24 | disposition home or self-care (01) ==
LOC: ER 17:02
DX: M54.41 Lumbago with sciatica, right side (principal); M25.551 Pain in right hip; Z96.641 Presence of right artificial hip joint; I10 Essential (primary) hypertension; Z88.1 Allergy status to other antibiotic agents; Z88.5 Allergy status to narcotic agent
CPT/HCPCS: 73502; J2550; J1170; 96372; 99283

== ENCOUNTER 2022-07-09 21:51 | Emergency (ER) | payer OTHER ==
--- OUTSIDE RECORDS SUMMARY | 2022-07-09 21:53 | XMS REPORT | Clinical Summary ---
:1960 Author Organization [facility] MD [facility] Address [address] [place] [address] Care Team Providers Name Role Phone Madison Manning Unavailable Allergies Not on File Medications Not on file Active Problems Not on file Encounters Date Type Specialty Care Team Description 05/25/2022 Ancillary Procedure Radiology Cancer 03/30/2022 Ancillary Procedure Radiology Cancer 03/30/2022 Ancillary Procedure Radiology Cancer 03/25/2022 Lab Requisition Liban Javed MD Divatia, Mukul K, MD after 07/09/2021 Social History Tobacco Use Types Packs/Day Years [...] Cancer Resul ts for this PELVIS PM TRAFFIC MANAGER procedure are i n the results section. OSI CHEST Routine 08/22/2021 12:46 Cancer Results for this PM CDT procedure are i n the results section. PATHOLOGY OUTSIDE Routine 08/21/2021 Results fo r this INTERPRETATION procedure are in the results section. OSI ABDOMEN Routine 08/19/2021 12:47 Cancer Results for this PM CDT procedure are i n the results section. after 07/09/[address] Abdomen and Pelvis (12/29/2021 11:35 PM TRAFFIC MANAGER) Specimen (Source) Anatomical Location Collection Method / [...] Accession#, Stained, Block, Unstained Collected Received 03/26/2022 [facility] Received A. [id number], 38 SS, 0 BLOCKS, 0 USS 08/21/2021 03/25/2022 6:58 PM CDT Addendum 1 Outside ([id number], 38 SS, 0 BLOCKS, 0 USS, collected on 08/21/2021): 03/26/2022 [facility] Addendum 6:58 PM electronic ally C. 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 No malignancy identified. MD Paty on 03/26/2022 at 6:58 PM Diagnosis Outside ([id number], 38 SS, 0 BLOCKS, 0 USS, collected on 08/21/2021): 03/26/2022 [facility] Electronically 6:58 PM signed by [...] and [id number]. CD34 highlights vascular channels. 03/26/2022 [facility] 6:58 PM The overall findings [...] amyloid deposition. Disclaimer "Some tests reported 03/26/2022 [facility] here may have been 6:58 PM developed and CDT performance characteristics determined by [facility]. These tests have [...] Organization Address City/State/ZIP Code Phon e Number [facility] [place] [address] [id number] OSI Abdomen (08/19/2021 12:47 PM CDT) Specimen (Source) Anatomical Location Collection Method / Collectio n Time Received Time / Laterality Volume Narrative Systemgenerated, Documentation - 022 12:47 PM CDT Study acquired at another institution. For comparison only. No Alan originated interpretation requested or a vailable. Candida Fajardo MD IMG OUTSIDE IMAGE ORDERABLES after 07/09/2021 Insurance Payer Benefit Plan / Subscriber ID Effective Dates Phone Addre ss Type Group [employer] MANAGED A[employer] O [id number] 2014-Present [address] X [id number] [facility] [place] [address] Care Teams [employer] Relationship Specialty Start Date End Date Madison Manning PCP - External Follow Up A 03/19/22
--- OUTSIDE RECORDS SUMMARY | 2022-07-09 21:55 | XMS REPORT | Continuity of Care Document ---
:1960 Author Organization [facility] t Address [address] [place] [address] Care Team Providers Name Role Phone Carey Koo MD Primary Care Physician SYSTEM, PROVIDER NOT IN Attending Clinician Unavailable LISSY WILSON Attending Clinician Unavailable MARIAN CUTLER Attending Clinician Unavailable Carlos ADAM, Joie Katz Attending Clinician Sandor NUNN, Alfred Espinoza Attending Clinician [phone] Nicko Palacios MD Attending Clinician Shelly Ayala RN Attending Clinician Unavailable Liban Javed MD Attending Clinician Jed Reardon MD Attending Clinician Unavailable GC_TNC_Lovitt_S Attending Clinician Unavailable Renu ADAM, Candelaria Love Attending Clinician [phone] Trudy Vernon RN Attending Clinician Unavailable SLY ARREDONDO III Attending Clinician Unavailable King COTY MD, Sly Fragoso Attending Clinician Christie Mehta Attending Clinician Simone ADAM, Sommer Donovan Attending Clinician [phone] Edmund Galindo NP, Mel Styles Attending Clinician Kylie SAUCEDA, Staci Attending Clinician Unavailable MD CANDELARIA SEARS Attending Clinician Unavailable Irene Rose MA Attending Clinician Unavailable Scotty ADAM, Candida Attending Clinician Rm Medina MD Attending Clinician Brian ADAM, Sara Santos Attending Clinician [phone] Russell ADAM, James Cruz Attending Clinician MD CANDIDA OLIVAREZ Attending Clinician Unavailable Kaylah An RN Attending Clinician Unavailable CHU MENA Attending Clinician Unavailable MD CHU MENA Attending Clinician Unavailable JACQUI MENESES Attending Clinician Unavailable KATEY MITCHELL Attending Clinician Unavailable Pcp, Patient Does Not Have A Attending Clinician [phone] Lab, Adc Fam Pob I Attending Clinician Unavailable Doctor Unassigned, [place] Attending Clinician Unavailable BROWN DUNLAP Attending Clinician Unavailable KORY CERVANTES Attending Clinician Unavailable NEHEMIAS SANDOVAL Attending Clinician Unavailable CAREY KOO M.D. Attending Clinician Unavailable GC_TNC_Lovitt_S Admitting Clinician Unavailable CANDELARIA SEARS Admitting Clinician Unavailable EDOUARD AVILA Admitting Clinician Unavailable CANDIDA OLIVAREZ Admitting Clinician Unavailable MD CANDIDA OLIVAREZ Admitting Clinician Unavailable CHU MENA Admitting Clinician Unavailable EDOUARD FREY Admitting Clinician Unavailable KORY CERVANTES Admitting Clinician Unavailable Payers Payer Name Policy Type Policy Number Effective Date Expiration Date S loreta AETNA CHOICE POS [id number] 2013 00:00:00 II AETNA (POS) [id number] 2013 00:00:00 Problems Condition Condition Condition Status Onset Resolution Last Treating Co mments Source Name Details Category Date Date Treatment Clinician Date Esophageal Esophageal Disease Active M ethodi dysmotilit dysmotilit 06-03 st y y 00:00: Hospita 00 l Gastric Gastric Disease Active Methodi regurgitat regurgitat 06-03 st ion ion 00:00: Hospita 00 l Heartburn Heartburn Disease Active 2022-0 Met hodi 06-03 st 00:00: Hospita 00 l Hiatal Hiatal Disease Active Methodi hernia hernia 06-03 00:00: Hospita 00 l Weight Weight Disease Active Methodi loss, loss, 06-03 unintentio unintentio 00:00: Ho spita nal nal 00 l Cervical Cervical Disease Active Metho di dysphagia dysphagia 06-03 00:00: Hospita 00 l Belching Belching Disease Active Metho di 06-03 st 00:00: Hospita 00 l Prolapse Prolapse Disease Active 2020-11 Overview: Me thodi of vaginal of vaginal 1-[address] vault vault 00:00: g of this Hospita after after 00 note l hysterecto hysterecto might be my my different from the original. Added automatic ally from request for surgery [id number] Small Small Disease Active 2020-11 Methodi bowel bowel 0-05 st obstructio obstructio 00:00: Ho spita n n 00 l Iron Iron Disease Active Methodi deficiency deficiency 11-20 st anemia anemia 00:00: Hospita secondary secondary 00 l to to inadequate inadequate dietary dietary iron iron intake intake Other Other Disease Active 2019-11 Methodi idiopathic idiopathic [address] scoliosis, scoliosis, 00:00: Ho spita cervicotho cervicotho 00 l racic racic region region History of History of Disease Active 2019-11 M ethodi total total 11-23 st right hip right hip 00:00: [facility] replacemen replacemen 00 l t t History of History of Disease Active 2019-11 M ethodi total left total left 11-23 knee knee 00:00: Hospita replacemen replacemen 00 l t t Osteopenia Osteopenia Disease Active 2019-11 M ethodi determined determined 11-23 st by x-ray by x-ray 00:00: Hospit a 00 l Achalasia Achalasia Disease Active Met hodi 12-11 st 00:00: Hospita 00 l Cervical Cervical Disease Active Metho di stenosis stenosis 12-11 st of spinal of spinal 00:00: [facility] canal canal 00 l OA OA Disease Active Methodi (osteoarth (osteoarth 6- st ritis) of ritis) of 00:00: [facility] hip hip 00 l Primary Primary Disease Active Methodi osteoarthr osteoarthr 5-02 st itis of itis of 00:00: Hospita right hip right hip 00 l Limited Limited Disease Active 2017-11 Methodi abduction abduction 0-09 st of right of right 00:00: Hospit a hip hip 00 l No known No known Disease Unive rs active active ity of problems problems [facility] 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 st is is Hospita l Allergies, Adverse Reactions, Alerts Allergy Allergy Status [...] High Unknown-Cmnt Un sugey MARIA EUGENIA INGREDI 1- ity of 00:00: [place] 00 [facility] SULFAMET DRUG Active High Other-Cmnt Univ ers HOXAZOLE -13 ity of -TRIMETH 00:00: [place] OPRIM 00 Medical Branch MORPHINE DRUG Active High N/V Univers INGREDI 1-13 ity of 00:00: [place] 00 [facility] Sulfamet Propensi Active 2020-11 UT hoxazole ty to 0-21 Health -Trimeth adverse 00:00: oprim reaction 00 s Sulfamet Propensi Active Confusion Met hodi hoxazole ty to 04-12 , st -Trimeth adverse 00:00: dizziness [facility]osp [facility] oprim reaction 00 l s to drug Amoxicil Allergy Active Hives UT maria eugenia to 08-08 Health substanc 00:00: e 00 Morphine Allergy Active Other UT to 08-08 Health substanc 00:00: e 00 Amoxicil Propensi Active Hives Method i maria eugenia ty to 08-08 st adverse 00:00: Hospita reaction 00 l s to drug Morphine Propensi Active GI "severe Metho di ty to Intolerance 08-08 nausea" st adverse 00:00: Hospita reaction 00 l s to drug amoxicil drug Active UT maria eugenia allergy Physici ans morphine drug Active [facility] allergy Physici ans Family History Family Member Diagnosis Comments Start Date Stop Date Source Natural brother Atrial fibrillation [facility] Natural father Heart failure [facility] Grandchild Crohn's disease [facility] Natural mother Alzheimer's disease [facility] Natural mother Dementia [facility] Natural sister [facility] Family member Celiac disease [facility] Family member Colon cancer [facility] Family member Esophageal cancer [facility] Family member Pancreatic cancer Meth [facility] Family member Stomach cancer [facility] Social History Social Habit Start Date Stop Date Quantity Comments Source History SDOH [facility] Alcohol Comment Exposure to Not sure University of SARS-CoV-2 [place] [facility] (event) [facility] History SDOH [facility] Alcohol Std Drinks History [facility] Alcohol Binge Alcohol intake 2022-06-03 2022-06-03 Current [facility]ism 00:00:00 00:00:00 non-drinker of Hospital alcohol (finding) History SDOH 2021-09-04 2021-09-04 1 [facility] Alcohol Frequency 00:00:00 00:00:00 Tobacco use and 2020-10-30 2020-10-30 Smokeless tobacco Me thodist exposure 00:00:00 00:00:00 non-user Hospital Sex Assigned At [birth year] Universit y of 00:00:00 00:00:00 [place] MD [place] [facility] Smoking Status Start Date Stop Date Source Unknown if ever smoked [facility] [place] Never smoked tobacco [facility] H ospital Medications Ordered Filled Start Stop Current Ordering Indication Dosage Frequency Signature Comments Components Source Medication Medication Date Date Medication? Clinician (SIG) Name Name cholecalcif Yes 2{tbl} QD Take 2 Me thodi latha, 8-[address] vitamin D3, 14:15: mouth Hospi ta (VITAMIN D3 11 daily. l ORAL) 2,000 IU qd ferrous Yes 1{tbl} Q.5D Take 1 Method i sulfate 8-[address] (IRON ORAL) 14:15: mouth 2 Hos bessy 11 (two) l times a day. polyethylen Yes 17g Q24H Take 17 g M ethodi e glycol 8-[address] (MIRALAX) 14:15: daily as [facility]osp [facility] 17 gram 11 needed. l packet docusate Yes 3{capsu QD Take 3 Meth mirela sodium 8-10 le} capsules st (STOOL 14:15: by mouth Hospita SOFTENER 11 every l ORAL) evening. multivitami Yes 1{tbl} QD Take 1 Me thodi n with 8-[address] minerals 14:15: mouth Hospita tablet 11 daily. l glucosamine Yes 2{tbl} QD Take 2 Me thodi /chondroiti 8-[address] n/C/rosaura 14:15: mouth Hospita (GLUCOSAM 11 daily. l BLANCA DIP-CHONDRO IT-C-MN ORAL) diclofenac Yes 75mg Q.5D Take 75 mg M ethodi (VOLTAREN) 7-[address] 75 MG EC 00:00: (two) Hospita tablet 00 times a l day. bromphenira Yes [id number] 5mL Take 5 mL Univers mine-pseudo 1-13 by mouth 4 it y of ephedrine-D 00:00[place] ([place] (BROM[place]ED 00 times Medical DM) 2-30-10 daily as Bran ch mg/5 mL needed for syrup Congestion /Allergies . benzonatate Yes [id number] 100mg Take 1 Univers 100 mg 1-13 capsule by ity of capsule 00:00: mouth [place] 00 every 8 Medical (eight) Branch hours as needed for Cough. bromphenira Yes [id number] 5mL Take 5 mL Univers mine-pseudo 1-13 by mouth 4 it y of ephedrine-D 00:00: ([place] (BROMFED 00 times Medical DM) 2-30-10 daily as Bran ch mg/5 mL needed for syrup Congestion /Allergies . benzonatate Yes [id number] 100mg Take 1 Univers 100 mg 1-13 capsule by ity of capsule 00:00: mouth [place] 00 every 8 Medical (eight) Branch hours as needed for Cough. gabapentin 2020-11 Yes 1{capsu Q.[id number] Take 1 Methodi (NEURONTIN) 2-14 le} [id number] capsule by st 400 mg 00:00: 3D mouth 3 Hospita capsule 00 (three) l times a day. No known 2020-11 No No known [facility] medications 0-27 medication He alth 20:42: s 35 No known 2020-11 No No known [facility] medications 0-27 medication He alth 20:42: s 35 gabapentin 2020-11- No 300mg Q.[id number] Take 300 Methodi (NEURONTIN) 0-15 10-[id number] 300 mg 13:28: 00:00 3D mouth 3 Hospita capsule 05 :00 (three) l times a day. ibuprofen 2020-11 Yes 1{tbl} Q8H Take 1 Meth mirela (ADVIL) 600 0-[address] MG tablet 00:00: mouth Hospita 00 every 8 l (eight) hours as needed. Post-op medication gabapentin 2020-11 No 400mg Q8H Take 1 Met hodi (NEURONTIN) 0-15 11-[address] 400 mg 00:00: 05:59 (400 mg Hospita capsule 00 :00 total) by l mouth every 8 (eight) hours for 30 days. losartan 2020-11 No 100mg QD Take 1 Metho di (COZAAR) 0-15 11-[address] 100 MG 00:00: 05:59 (100 mg Hospita tablet 00 :00 total) by l mouth daily for 30 days. hydroCHLORO 2020-11 No 12.5mg QD Take 1 M ethodi thiazide 0-15 11-[address] (MICROZIDE) 00:00: 05:59 (12.5 mg H ospita 12.5 mg 00 :00 total) by l capsule mouth daily for 30 days. metoclopram 2020-11 No 5mg Q.25D Take 1 Me thodi ran 0-15 11-15 tablet (5 st (Reglan) 5 00:00: 05:59 mg total) H ospita MG tablet 00 :00 by mouth 4 l (four) times a day for 30 days. ibuprofen 2020-11- No [id number] 600mg Q6H Take 1 Methodi (ADVIL) 600 0-01 10-[address] MG tablet 00:00: 00:00 (600 mg [facility]osp [facility] 00 :00 total) by l mouth every 6 (six) hours as needed for mild pain (postopera tive pain) for up to 30 days. estradioL Yes Follow Method i (Estrace) 07-[address] 0.01 % (0.1 00:00: instructio Hospita mg/gram) 00 ns. Insert l vaginal one finger cream tip unit into vagina nightly x 2wks; after two weeks use 3x weekly at night cyclobenzap Yes TAKE ONE M ethodi rine 1-04 (1) st (FLEXERIL) 00:00: TABLET(S) Ho spita 10 mg 00 BY MOUTH l tablet THREE TIMES A DAY NEEDED FOR MUSCLE SPASMS. omeprazole 2019-11 Yes 40mg QD Take 40 mg M ethodi (PriLOSEC) 2-[address] 40 MG 00:00: daily. Hospita capsule 00 l meloxicam 2019-11 No TAKE ONE Met hodi (MOBIC) 15 1-25 10-15 (1) st mg tablet 00:00: 00:00 TABLET(S) Ho spita 00 :00 BY MOUTH l ONCE A DAY. HYDROcodone 2019-11 Yes 1{tbl} Q8H Take 1 Me thodi -acetaminop 1-[address] hen (NORCO) 00:00: mouth Hospi ta 7.5-325 mg 00 every 8 l per tablet (eight) hours as needed. promethazin Yes 1-2 tabs Me thodi e 4-01 PO q4-6 st (PHENERGAN) 00:00: prn Hospit a 12.5 MG 00 nausea/vom l tablet it losartan-hy Yes 1{tbl} QD Take 1 Me thodi drochloroth 1-[address] iazide 00:00: mouth Hospita (HYZAAR) 00 daily. l 50-12.5 mg per tablet traMADol traMADol Yes UT HCl - 50 [...] Comments Source Systolic blood 2021-11-27 157 mm[Hg] [facility] 22:07:00 [facility] Diastolic blood 2021-11-27 92 mm[Hg] [place] o pressure 22:07:00 [facility] Heart rate 2021-11-27 117 /min [facility] :07:00 [facility] Body temperature 2021-11-27 39.67 Claudine last dose of [facility] 22:07:00 Motrin this AM [facility] Respiratory rate 2021-11-27 16 /min [facility] 22:07:00 [facility] Body height 2021-11-27 190.5 cm [facility] 22:07:00 [facility] Body weight 2021-11-27 94.518 kg [facility] 22:07:00 [facility] BMI 2021-11-27 26.05 kg/m2 [facility] 22:07:00 [facility] Oxygen saturation 2021-11-27 97 /min [facility] in Arterial blood 22:07:00 [facility] by Pulse oximetry [place] Systolic blood 2021-09-04 147 mm[Hg] [facility] pressure 19:12:00 Diastolic blood 2021-09-04 72 mm[Hg] [facility] pressure 19:12:00 Heart rate 2021-09-04 94 /min [facility] 19:12:00 Body temperature 2021-09-04 36.5 Claudine [facility] 19:12:00 Body height 2021-09-04 182.9 cm [facility] 19:12:00 Body weight 2021-09-04 92.987 kg [facility] 19:12:00 BMI 2021-09-04 27.80 kg/m2 [facility] 19:12:00 Systolic blood 2022-06-24 135 mm[Hg] [facility] pressure 19:11:00 Hospital Diastolic blood 2022-06-24 72 mm[Hg] [facility] pressure 19:11:00 Hospital Heart rate 2022-06-24 88 /min [facility] 19:11:00 Hospital Respiratory rate 2022-06-24 18 /min [facility] 19:11:00 Hospital Body height 2022-06-24 182.9 cm [facility] 19:11:00 Hospital Body weight 2022-06-24 97.07 kg [facility] 19:11: Hospital BMI 2022-06-24 29.02 kg/m2 [facility] 19:11:00 Hospital Oxygen saturation 2022-06-24 93 /min [facility] in Arterial blood 19:11:00 Hospital by Pulse oximetry Body temperature 2021-11-03 36.44 Claudine [facility] 16:20:00 Hospital BP Systolic 2019-11-01 144 mm[Hg] Location: RUE; [facility] 14:32:00 Position: Sitting BP Diastolic 2019-11-01 86 mm[Hg] Location: RUE; [facility] 14:32:00 Position: Sitting Height 2019-11-01 75 [...] BP Systolic 2019-10-18 154 mm[Hg] Location: RUE; [facility] 10:58:00 Position: Sitting BP Diastolic 2019-10-18 93 mm[Hg] Location: RUE; [facility] 10:58:00 Position: Sitting Height 2019-10-18 75 [...] 10:58:00 O2 SAT 2019-10-18 98 % Source: [facility] 10:58:00 Procedures Procedure Date / Time Performing Clinician Source Performed OSI CT ABDOMEN AND PELVIS 2021-12-30 05:35:00 Candida Olivarez [facility] MD [facility] CT ABD/PELVIC EXTERNAL 2021-12-29 19:17:03 Nicko Palacios [facility] STUDY POC URINALYSIS DIPSTICK 2021-12-23 17:14:00 [facility] POST VOID RESIDUAL 2021-12-23 16:45:00 [facility] PO[facility] MOLECULAR FLU 2021-11-27 [facility] 2021-11-27 [facility] [place] [facility] 2021-11-03 13:46:00 Radha Phillips Ho spital ENDOTRACHEAL AIRWAY COLPORRHAPHY, COMBINED 2021-11-03 13:29:00 Candelaria Sears [facility] ANTEROPOSTERIOR Love URINE CULTURE 2021-10-29 23:46:00 [facility] COMPREHENSIVE METABOLIC 2021-10-29 22:55:00 [facility] [place] PANEL HC COMPLETE BLD COUNT 2021-10-29 22:55:00 [facility] [place] [facility] W/AUTO DIFF HEMOGLOBIN A1C 2021-10-29 22:55:00 [facility] ESTIMATED GFR 2021-10-29 22:55:00 [facility] URINALYSIS SCREEN AND 2021-10-29 22:50:00 [facility] [place] [facility] MICROSCOPY, WITH REFLEX TO CULTURE COVID-19 QUALITATIVE 2021-10-29 22:01:00 Candelaria Sears [facility] RT-PCR Love MAGNESIUM LEVEL 2021-08-29 09:56:00 Sara Torres Ho spital Danielle PHOSPHORUS LEVEL 2021-08-29 09:56:00 Sara Torres H ospital [place]le CBC HEMOGRAM 2021-08-29 09:56:00 Sara Torres Ho spital [place]le BASIC METABOLIC PANEL 2021-08-29 09:56:00 [facility] GFR 2021-08-29 09:56:00 Sara Torres spital Danielle MAGNESIUM LEVEL 2021-08-28 08:58:00 Sara Torres Ho spital Danielle PHOSPHORUS LEVEL 2021-08-28 08:58:00 Sara Torres ospital Danielle CBC HEMOGRAM 2021-08-28 08:58:00 Sara Torres spital Danielle BASIC METABOLIC PANEL 2021-08-28 08:58:00 [facility] ESTIMATED GFR 2021-08-28 08:58:00 Sara Torres spital Danielle MAGNESIUM LEVEL 2021-08-27 10:10:00 Sara Torres spital Danielle PHOSPHORUS LEVEL 2021-08-27 10:10:00 Sara Torres ospital Danielle CBC HEMOGRAM 2021-08-27 10:10:00 Sara Torres spital Danielle BASIC METABOLIC PANEL 2021-08-27 10:10:00 [facility] ESTIMATED GFR 2021-08-27 10:10:00 Sara Torres spital Danielle HC COMPLETE BLD COUNT 2021-08-26 09:24:00 Mirna Simmons [facility] W/AUTO DIFF BASIC METABOLIC PANEL 2021-08-26 09:24:00 Mirna Simmons [facility] MAGNESIUM LEVEL 2021-08-26 09:24:00 Mirna Simmons [facility] PHOSPHORUS LEVEL 2021-08-26 09:24:00 Mirna Simmons [facility] ESTIMATED GFR 2021-08-26 09:24:00 Rm Medina Ho spital HC COMPLETE BLD COUNT 2021-08-25 10:07:00 Iris, Mirna Brittany [facility] W/AUTO DIFF BASIC METABOLIC PANEL 2021-08-25 10:07:00 Iris, Mirna Brittany [facility] MAGNESIUM LEVEL 2021-08-25 10:07:00 Iris, Mirna [facility]any [facility] PHOSPHORUS LEVEL 2021-08-25 10:07:00 Iris, Mirna Brittany [facility] ESTIMATED GFR 2021-08-25 10:07:00 Rm Medina spital HC COMPLETE BLD COUNT 2021-08-24 10:03:00 Iris, Mirna Brittany [facility] W/AUTO DIFF BASIC METABOLIC PANEL 2021-08-24 10:03:00 Iris, Mirna Brittany [facility] LACTIC ACID LEVEL 2021-08-24 10:03:00 Iris, Mirna Brittany Method [facility] MAGNESIUM LEVEL 2021-08-24 10:03:00 Iris, [facility]na [facility] PHOSPHORUS LEVEL 2021-08-24 10:03:00 Iris, [facility] 2021-08-24 10:03:00 Rm Medina spital SMEAR REVIEW 2021-08-24 10:03:00 Rm Medina spital HC COMPLETE BLD COUNT 2021-08-23 10:23:00 Iris, Mirna Brittany [facility] W/AUTO DIFF BASIC METABOLIC PANEL 2021-08-23 10:23:00 Iris, Mirna Brittany [facility] LACTIC ACID LEVEL 2021-08-23 10:23:00 Iris, Mirna Brittany Method [facility] MAGNESIUM LEVEL 2021-08-23 10:23:00 Iris, Mirna Brittany [facility] PHOSPHORUS LEVEL 2021-08-23 10:23:00 Iris, [facility]na [facility] ESTIMATED GFR 2021-08-23 10:23:00 Rm Medina spital XR CHEST 1 VW PORTABLE 2021-08-22 19:09:01 Feliciano Stratton [facility] HC COMPLETE BLD COUNT 2021-08-22 18:43:00 [facility]AUTO DIFF [facility] COMPREHENSIVE METABOLIC 2021-08-22 18:43:00 Feliciano Stratton [facility] PANEL [facility] 2021-08-22 18:43:00 [facility] LACTIC ACID LEVEL 2021-08-22 18:43:00 [facility]al [facility] MAGNESIUM LEVEL 2021-08-22 18:43:00 [facility] THYROID STIMULATING 2021-08-22 18:43:00 Viral [facility] HORMONE [facility] PHOSPHORUS LEVEL 2021-08-22 18:43:00 Viral, [facility] ESTIMATED GFR 2021-08-22 18:43:00 [facility] ospital [facility] ARTERIAL BLOOD GAS 2021-08-22 18:14:00 Feliciano Stratton [facility] ECG 12-LEAD 2021-08-22 18:06:59 [facility] POC GLUCOSE 2021-08-22 17:51:00 Rm Medina Ho spital OSI CHEST 2021-08-22 17:46:00 Candida Olivarez [facility] HC COMPLETE BLD COUNT 2021-08-22 10:26:00 Mirna Simmons [facility] W/AUTO DIFF BASIC METABOLIC PANEL 2021-08-22 10:26:00 Mirna Simmons [facility] LACTIC ACID LEVEL 2021-08-22 10:26:00 Mirna Simmons [facility] ESTIMATED GFR 2021-08-22 10:26:00 Rm Medina Ho spital [place] AN ELECTIVE 2021-08-21 21:25:00 Jaems Wells [facility] ENDOTRACHEAL AIRWAY LAPAROTOMY, EXPLORATORY 2021-08-21 21:15:00 Lissy Wilson [facility] XR ABDOMEN 1 VW PORTABLE 2021-08-21 13:30:00 Mirna Simmons [facility] SURGICAL PATHOLOGY REQUEST 2021-08-21 13:22:00 mR Medina [facility] COVID-19 ANTI-SPIKE IGG 2021-08-21 10:28:00 Errol Cj [facility] ANTIBODY TITER Jose Antonio HC COMPLETE BLD COUNT 2021-08-21 10:28:00 Mirna Simmons [facility] W/AUTO DIFF BASIC METABOLIC PANEL 2021-08-21 10:28:00 Mirna Simmons [facility] COVID-19 SEROLOGY PATIENT 2021-08-21 10:28:00 [facility] Jose Antonio ESTIMATED GFR 2021-08-21 10:28:00 Rm Medina Ho spital LACTIC ACID LEVEL 2021-08-21 10:28:00 Errol [facility] Jose Antonio PATHOLOGY OUTSIDE 2021-08-21 00:00:00 Jed Reardon [facility] HC COMPLETE BLD COUNT 2021-08-20 08:53:00 Mirna Simmons [facility] W/AUTO DIFF BASIC METABOLIC PANEL 2021-08-20 08:53:00 Mirna Simmons [facility] ESTIMATED GFR 2021-08-20 08:53:00 Rm Medina spital XR ABDOMEN 1 VW PORTABLE 2021-08-19 20:52:00 Lila Kumari [facility] LACTIC ACID LEVEL, SEPSIS 2021-08-19 20:37:00 Mirna Simmons [facility] - NOW AND REPEAT 2X EVERY 3 HOURS OSI ABDOMEN 2021-08-19 17:47:00 Candida Olivarez [facility] er Center XR ABDOMEN 1 VW PORTABLE 2021-08-19 13:40:00 Porciuncula [facility] Jesús Miner CARCINOEMBRYONIC ANTIGEN 2021-08-19 13:20:00 Doyle HaysAndrade freeman [facility] (CEA) CANCER ANTIGEN 19-9 2021-08-19 13:20:00 Andrade Westfall [facility] PARTIAL THROMBOPLASTIN 2021-08-19 13:20:00 Josue Fair Darshan [facility] TIME (PTT) Pastoral LACTIC ACID LEVEL 2021-08-19 13:20:00 [facility] PROTHROMBIN TIME WITH INR 2021-08-19 10:16:00 [facility] PARTIAL THROMBOPLASTIN 2021-08-19 10:16:00 Candida Olivarez [facility] TIME (PTT) COVID-19 QUALITATIVE 2021-08-19 08:42:00 [facility] RT-PCR Sree LACTIC ACID LEVEL 2021-08-19 08:36:00 [facility] Sree HC COMPLETE BLD COUNT 2021-08-19 08:36:00 [facility] W/AUTO DIFF [facility] BASIC METABOLIC PANEL 2021-08-19 08:36:00 [facility] Sree MAGNESIUM LEVEL 2021-08-19 08:36:00 Jem Ernstwn [facility] Sree PHOSPHORUS LEVEL 2021-08-19 08:36:00 Jem Ernstwnagi [facility] Sree TYPE AND SCREEN 2021-08-19 08:36:00 Wally Ernst Ho spital Sree ESTIMATED GFR 2021-08-19 08:36:00 Candida Olivarez [facility] PROTHROMBIN TIME WITH INR 2021-08-19 08:36[facility]00 [facility] 2021-08-19 08:36:00 [facility]TT[facility] 19-9 2021-08-19 08:36[facility]00 [facility] EX[facility]NAL STUDY 2021-08-19 03:07:00 Candida Olivarez [facility] CT ABD/PELVIC EXTERNAL 2021-08-19 01:25:43 Nicko Palacios [facility] STUDY CT ABD/PELVIC EXTERNAL 2021-08-19 01:25:00 Candida Olivarez [facility] STUDY POC URINALYSIS DIPSTICK 2021 15:51:00 Candelaria Sears [facility] Love History of Exploratory [facility]end[facility]olecystectomy [facility] Laparoscopic [facility] Hysterectomy [facility] History of Knee [facility] Replacement [facility] of Hip Replacement [facility] History of Simple Bunion [facility] Exostectomy (Silver Procedure) Plan of Care Planned Activity Planned Date Details Comments Source Future Scheduled 2022-07-09 HEPATITIS B VACCINES Met [facility] Test 11:39:05 (1 of 3 - 3-dose series) [code = HEPATITIS B VACCINES (1 of 3 - 3-dose series)] Future Scheduled 2022-07-09 Hepatitis C screening [facility] Test 11:39:05 (procedure) [code = 720467444] Future Scheduled 2022-07-09 Screening for [facility] Test 11:39:05 malignant neoplasm of cervix (procedure) [code = 759178930] Future Scheduled 2022-07-09 BREAST CANCER [facility] Test 11:39:05 SCREENING [code = BREAST CANCER SCREENING] Future Scheduled 2022-07-09 COLONOSCOPY SCREENING [facility] Test 11:39:05 [code = COLONOSCOPY SCREENING] Future Scheduled 2022-07-09 SHINGLES VACCINES (1 Met [facility] Test 11:39:05 of 2) [code = SHINGLES VACCINES (1 of 2)] Future Scheduled 2022-07-09 COVID-19 VACCINE (3 - [facility] Test 11:39:05 Booster for Moderna series) [code = COVID-19 VACCINE (3 - Booster for Moderna series)] Future Scheduled 2022-07-09 INFLUENZA VACCINE [facility] Test 11:39:05 [code = INFLUENZA VACCINE] Encounters Start End Encounter Admission Attending Care Care Encounter Source Date/Time Date/Time Type Type Clinicians Facility Department ID 2022-04-01 Outpatient SYSTEM, SHARATH EARLY [id number] 10:41:31 PROVIDER Barney o n 2022-02-06 Outpatient [facility] [id number] [place] 11:18:23 [id number] [facility] 2021-08-21 Outpatient STEVE, [facility] [id number] [place] 13:19:11 [facility] 2021-08-19 Outpatient ANGEL RIGGS, [facility] [id number] [place] 12:52:48 [facility] 2022-06-24 2022-06-24 Office Joie Gonzalez 1.2.840.1 [id number] Methodi 14:15:00 14:45:00 Visit Alfred Patten 51466.1.[address] 3.430.2.7 Hospit a .3.841959 l .8 2022-06-24 2022-06-24 [facility] [id number] [place] 00:00:00 00:00:[address] JOIE [address] 2022-06-17 2022-06-[address] [facility], 1.2.840.1 [id number] 2099 [id number] Methodi 11:08:12 23:59:00 Encounter Nicko 83419.1.[address] 3.430.2.7 Hospit a .3.668686 l .8 2022-06-17 2022-06-17 Outpatient [facility] [id number] [place] 00:00:00 00:00:00 NICKO [address] 2022-06-16 2022-06-[address] [facility], 1.2.840.1 [id number] 2099 [id number] Methodi 12:22:00 23:59:00 Encounter Nicko 84887.1.[address] 3.430.2.7 Hospit a .3.281641 l .8 2022-06-16 2022-06-[address] [facility], 1.2.840.1 [id number] 2099 [id number] Methodi 12:17:44 12:21:00 Encounter Nicko 16520.1.[address] 3.430.2.7 Hospit a .3.709175 l .8 2022-06-16 2022-06-[address] [facility], 1.2.840.1 [id number] 2100 [id number] Methodi 12:05:15 12:16:00 Encounter Nicko 28533.1.[address] 3.430.2.7 Hospit a .3.395447 l .8 2022-06-16 2022-06-16 Outpatient [facility] [id number] [place] 00:00:00 00:00:00 NICKO [address] 2022-06-16 2022-06-16 Outpatient SAHARIA, [facility] [id number] 7816 [place] 00:00:00 00:00:00 NICKO [address] 2022-06-16 2022-06-16 Outpatient SAHARIA, [facility] [id number] [place] 00:00:00 00:00:00 NICKO [address] 2022-06-16 2022-06-16 Orders Saharia, 1.2.840.1 [id number] 85241 Methodi 00:00:00 00:00:00 Only Nicko 55900.1.[address] 3.430.2.7 Hospit a .3.821980 l .8 2022-06-03 2022-06-03 Leona Ayala, 1.2.840.1 [id number] 2100 568689 Methodi 00:00:00 00:00:[address] 3.430.2.7 Hospit a .3.944157 l .8 2022-05-25 2022-05-25 Ancillary 1.2.840.1 [id number] 1094 [id number] [facility] 23:30:00 23:35:00 Procedure 52938.1.1 it y of 3.412.2.7 [place] .3.808366 MD [facility] 2022-05-25 2022-05-25 Ancillary EL 1.2.840.1 [id number] 1094 [id number] [facility] 23:30:00 23:35:00 Procedure 82540.1.1 it y of 3.412.2.7 [place] .3.085211 MD [facility] 2022-03-30 2022-03-30 Ancillary 1.2.840.1 [id number] 1092 [id number] [facility] 20:05:00 20:10:00 Procedure 09385.1.1 it y of 3.412.2.7 [place] .3.241438 MD Adam [facility] 2022-03-30 2022-03-30 Ancillary EL 1.2.840.1 [id number] 1092 [id number] [facility] 20:05:00 20:10:00 Procedure 08976.1.1 it y of 3.412.2.7 [place] .3.008741 MD Rivera8 [facility] 2022-03-30 2022-03-30 Ancillary 1.2.840.1 [id number] 1092 [id number] [facility] 20:00:00 20:05:00 Procedure 79616.1.1 it y of 3.412.2.7 [place] .3Nicole215529 MD Rivera8 [facility] 2022-03-30 2022-03-30 Ancillary EL 1.2.840.1 [id number] 1092 778141 [facility] 20:00:00 20:05:00 Procedure 71004.1.1 it y of 3.412.2.7 [place] .3.050240 MD Adam [facility] 2022-03-25 2022-03-25 Lab Liban Javed 1.2.840.1 [id number] 52 [id number] Univers 00:00:00 00:00:00 Jed Velez 58386.1.1 ity of n 3.412.2.7 [place] .3.295586 MD Rivera8 [facility] 2022-03-25 2022-03-25 Lab Liban Javed 1.2.840.1 [id number] 52 [id number] Univers 00:00:00 00:00:00 Jed Velez 92105.1.1 ity of n 3.412.2.7 [place] .3.922310 MD Adam [facility] 2022-01-01 2022-01-01 Outpatient GC_TNC_Lovi PRIV PRIV [id number] [facility] 06:01:00 06:01:00 tt_S [id number] Medica l 2021-12-23 2021-12-23 Office Renu 1.2.840.1 [id number] 2100 065327 Methodi 10:45:00 13:24:32 Visit Candelaria 49347.1.1 402 [facility] 3.430.2.7 Hospit a .3.003417 l .8 2021-12-23 2021-12-23 [facility] [id number] 74865 [place] 00:00:00 00:00:00 CANDELARIA [address] 2021-12-23 2021-12-23 Travel 1.2.840.1 1.2.728.737 0794 889637 Methodi 00:00:00 00:00:[address] 3.430.2.7 0.2.7.3.698 Ho spita .3.121500 084.8 l .8 2021-11-29 2021-11-29 Telephone Trudy Vernon 1.2.840.114 9 [id number] [facility] 00:00:00 00:00:00 LÓPEZ 350.1.13.[address] [facility] 4.2.7.2.686 Chapo as [phone] [address] 2021-11-27 2021-11-27 Outpatient Anton[facility] [id number] [facility] 16:00:00 16:56:53 SLY may [facility] 2021-11-27 2021-11-27 [facility] Sly Arredondo [facility] 1.2.840.114 [id number] Univers 16:00:00 16:20:00 [facility] 350.1.13.10 ity [facility] 4.2.7.2.686 Chapo as ILA?BLEA [phone] [address] MEDICAL OFFICE BUILDING 2021-11-24 2021-11-24 Telephone Renu 1.2.840.1 [id number] 21 [id number] Methodi 00:00:00 00:00:[address] Love 3.430.2.7 Hospit a .3.566176 l .8 2021-11-17 2021-11-17 Telephone Renu 1.2.840.1 [id number] 21 [id number] Methodi 00:00:00 00:00:[address] Love 3.430.2.7 Hospit a .3.669801 l .8 2021-11-10 2021-11-10 Clinical 1.2.840.1 [id number] 57090 19926 Methodi 11:00:00 12:59:[address] 3.430.2.7 Hospit a .3.893594 l .8 2021-11-10 2021-11-10 Outpatient [facility] [id number] [address] [place] [address] 00:00:00 00:00:[address] 2021-11-10 2021-11-10 Travel 1.2.840.1 1.2.339.785 2353 453779 Methodi 00:00:00 00:00:[address] 3.430.2.7 0.2.7.3.698 Ho spita .3.443611 084.8 l .8 2021-11-05 2021-11-05 Clinical 1.2.840.1 [id number] 43917 16411 Methodi 11:00:00 12:09:[address] 3.430.2.7 Hospit a .3.321384 l .8 2021-11-05 2021-11-05 Outpatient [facility] [id number] [address] [place] [address] 00:00:00 00:00:[address] 2021-11-05 2021-11-05 Travel 1.2.840.1 1.2.804.711 3681 310529 Methodi 00:00:00 00:00:[address] 3.430.2.7 0.2.7.3.698 Ho spita .3.028193 084.8 l .8 2021-11-03 2021-11-03 Hospital Renu, 1.2.840.1 [id number] 434 [id number] Methodi 05:21:00 16:04:00 Encounter Candelaria 86936.1.[address] Love 3.430.2.7 Hospit a .3.480084 l .8 2021-11-03 2021-11-03 Surgery Renu, 1.2.840.1 [id number] 2099 [id number] Methodi 07:30:00 10:40:[address] Love 3.430.2.7 Hospit a .3.279472 l .8 2021-11-03 2021-11-03 Anesthesia Sommer Nichols 1.2.840. 1 [id number] Methodi 07:29:00 10:23:00 Event Cumma[place] 87307.1.[address] 3.430.2.7 Hospit a .3.242076 l .8 2021-11-03 2021-11-03 Outpatient [facility] 021 50438 42296 [place] 00:00:00 00:00:00 CANDELARIA [address] 2021-11-03 2021-11-03 Telephone Kylie, 1.2.840.1 [id number] 21 [id number] Methodi 00:00:00 00:00:00 Shenadams 84414.1.1 553 s t 3.430.2.7 Hospit a .3.628143 l .8 2021-10-29 2021-10-29 Pre-Admiss Renu, 1.2.840.1 [id number] 2 [id number] Methodi 15:20:00 16:20:00 ion Candelaria 98586.1.[address] Testing Love 3.430.2.7 Hospit a .3.924067 l .8 2021-10-29 2021-10-29 [facility]patient [facility] 35787 44685 [place] 00:00:00 00:00:00 CANDELARIA [address] 2021-10-29 2021-10-29 Travel 1.2.840.1 1.2.786.477 3671 901331 Methodi 00:00:00 00:00:[address] 3.430.2.7 0.2.7.3.698 Ho spita .3.186177 084.8 l .8 2021-10-27 2021-10-27 Telephone Renu, 1.2.840.1 [id number] 21 [id number] Methodi 00:00:00 00:00:[address] Love 3.430.2.7 Hospit a .3.625805 l .8 2021-10-20 2021-10-20 Telephone Renu, 1.2.840.1 [id number] 21 [id number] Methodi 00:00:00 00:00:[address] Love 3.430.2.7 Hospit a .3.565795 l .8 2021-10-01 2021-10-01 Telephone Renu, 1.2.840.1 [id number] 21 [id number] Methodi 14:15:00 14:30:00 Consult Candelaria 40719.1.[address] Love 3.430.2.7 Hospit a .3.946603 l .8 2021-10-01 2021-10-01 [facility] [address] [place] [address] 00:00:00 00:00:00 CANDELARIA [address] 2021-10-01 2021-10-01 Orders Rose 1.2.840.1 [id number] 324700 8279 Methodi 00:00:00 00:00:00 Only Irene 83566.1.[address] 3.430.2.7 Hospit a .3.702860 l .8 2021-09-25 2021-09-25 Telephonic ESTEFANIA Wilson 1.2.840.114 1 [id number] [place] 11:04:05 12:53:20 Encounter Lissy CARDENAS 350.1.13.58 Health 9.2.7.2.686 [id number] 3 2021-09-04 2021-09-04 Office Steve ESTEFANIA AYALA 1.2.571.216 0846 39151 [place] 14:04:50 14:42:37 Visit Lissy CARDENAS 350.1.13.58 H ealth 9.2.7.2.686 [id number] 3 2021-09-01 2021-09-01 Telephone Renu, 1.2.840.1 [id number] 21 [id number] Methodi 00:00:00 00:00:[address] Love 3.430.2.7 Hospit a .3.030901 l .8 2021-08-19 2021-08-29 [facility] Candida Olivarez 1.2.840.1 [id number] 035 [id number] Methodi 01:47:00 13:27:00 Encounter Rm Medina 52352.1.[address] Sara Torres 3.430.2.7 Hospita .3.119988 l .8 2021-08-19 2021-08-29 [facility] [id number] [place] [address] 00:00:00 00:00:00 SARA [address] 2021-08-21 2021-08-21 Anesthesia Russell, 1.2.840.1 [id number] 029 [id number] Methodi 16:16:00 20:28:[address]es 04309.1.[address] 3.430.2.7 Hospit a .3.168276 l .8 2021-08-21 2021-08-21 Surgery Steve, 1.2.840.1 [id number] 280585 4799 Methodi 13:20:00 16:05:[address] 3.430.2.7 Hospit a .3.713975 l .8 2021-08-19 2021-08-19 Telephone Renu 1.2.840.1 [id number] 21 [id number] Methodi 00:00:00 00:00:[address] Love 3.430.2.7 Hospit a .3.289447 l .8 2021-08-18 2021-08-18 Travel 1.2.840.1 1.2.652.815 6337 609949 Methodi 00:00:00 00:00:[address] 3.430.2.7 0.2.7.3.698 Ho spita .3.516755 084.8 l .8 2021 2021 Office Renu 1.2.840.1 [id number] 2099 801284 Methodi 09:15:00 11:41:18 Visit Candelaria 47045.1.[address] Love 3.430.2.7 Hospit a .3.469056 l .8 2021 2021 Outpatient RENU [facility] 40504 48068 [place] 00:00:00 00:00:00 CANDELARIA [address] 2021 2021 Travel 1.2.840.1 1.2.278.727 4892 884008 Methodi 00:00:00 00:00:[address] 3.430.2.7 0.2.7.3.698 Ho spita .3.988549 084.8 l .8 2021-08-11 2021-08-11 Telephone Renu, 1.2.840.1 [id number] Methodi 00:00:00 00:00:[address] Love 3.430.2.7 Hospit a .3.518068 l .8 2021-08-04 2021-08-04 Telephone Renu, 1.2.840.1 [id number] Methodi 00:00:00 00:00:[address] Love 3.430.2.7 Hospit a .3.072168 l .8 2021-07-09 2021-07-09 Orders An, 1.2.840.1 [id number] 7526 Methodi 00:00:00 00:00:00 Only Kaylha 15539.1.[address] 3.430.2.7 Hospit a .3.601857 l .8 2021-07-01 2021-07-01 Outpatient RENU [facility] [id number] 34069 [place] 00:00:00 00:00:00 CANDELARIA [address] 2021-03-11 2021-03-11 Outpatient [facility] [id number] [address] [place] [address] 00:00:00 00:00:00 CHU [address] 2021-02-26 2021-02-26 Outpatient THETIFFANIE, [facility] [id number] 456 [place] 00:00:00 00:00:00 CHU 635 Method i 2021-02-24 2021-02-24 Outpatient TRINA [facility] 315 [id number] 550 [place] 00:00:00 00:00:00 CHU 779 Method i 2021-01-08 2021-01-08 Outpatient THETIFFANIE [facility] [id number] 267 [place] 00:00:00 00:00:00 CHU 704 Method i 2020-11-28 2020-11-28 Outpatient THETIFFANIE [facility] [id number] 723 [place] 00:00:00 00:00:00 CHU 101 Method i 2020-11-20 2020-11-20 Outpatient PETEVERARDO, [facility] [id number] 937 [place] 00:00:00 00:00:00 JACQUI 050 Method i 2020-11-11 2020-11-11 Outpatient TRINA [facility] 130 [id number] 814 [place] 00:00:00 00:00:00 CHU 428 Method i 2020-10-30 2020-10-30 Outpatient TRINA [facility] [id number] 863 [place] 00:00:00 00:00:00 CHU 447 Method i 2020-10-30 2020-10-30 Outpatient STEPHEN [facility] [id number] 866 [place] 00:00:00 00:00:00 KATEY 260 Method i 2020-10-30 2020-10-30 Outpatient STEPHEN [facility] [id number] 866 [place] 00:00:00 00:00:00 KATEY 261 Method i 2020-10-23 2020-10-23 Telephone Pcp, [facility] 1.2.306.019 3639 2221 00:00:00 00:00:00 Patient Health 350.1.13.10 Does Not [place] 4.2.7.2.686 Have A Professio [phone] nal 044 [address] One 2020-10-05 2020-10-05 Laboratory Lab, Adc [facility] 1.2.840.114 79 [id number] 15:32:07 15:52:07 Only Fam Pob I Health 350.1.13.10 [place] 4.2.7.2.686 Profjerome [phone] nal 044 Office [address] One 2020-10-05 2020-10-05 Letter Doctor TALIB 1.2.840.114 [id number] 00:00:00 00:00:00 (Out) Unassigned, LÓPEZ 350.1.13.10 [place] [facility] 4.2.7.2.686 [id number] 044 2020-10-03 2020-10-03 Outpatient MITCHELL, [facility] [id number] 466 [place] 00:00:00 00:00:00 KATEY [address] 2020-09-26 2020-09-26 Outpatient [facility] [id number] 000 [place] 00:00:00 00:00:[address] 2020-09-23 2020-09-23 Outpatient DUNLAP, [facility] [id number] 0319 [place] 00:00:00 00:00:00 BROWN [address] 2020-09-23 2020-09-23 Outpatient DUNLAP, [facility] [id number] 8392 [place] 00:00:00 00:00:00 BROWN [address] 2020-09-23 2020-09-23 Outpatient DUNLAP, [facility] [id number] 2035 [place] 00:00:00 00:00:00 BROWN [address] 2020-09-23 2020-09-23 Outpatient DUNLAP, [facility] [id number] 9931 [place] 00:00:00 00:00:[address] BROWN [address] 2020-09-23 2020-09-23 Outpatient DUNLAP, [facility] [id number] 6855 [place] 00:00:00 00:00:00 BROWN [address] 2020-09-23 2020-09-23 Outpatient DUNLAP, [facility] [id number] 0380 [place] 00:00:00 00:00:00 BROWN [address] 2020-07-23 2020-07-23 Outpatient THEKDI, [facility] [id number] 495 [place] 00:00:00 00:00:00 CHU [address] 2020-07-01 2020-07-01 Outpatient ERGUN, [facility] [id number] 322 [place] 00:00:00 00:00:00 GULCHIN [address] 2020-05-01 2020-05-01 Outpatient LORI, [facility] [id number] 1761 [place] 00:00:00 00:00:00 NEHEMIAS 750 Method i 2020-05-01 2020-05-01 Outpatient LORI, [facility] [id number] 4051 [place] 00:00:00 00:00:00 NEHEMIAS 746 Method i 2020-03-19 2020-03-19 Outpatient ERGUN, [facility] 790 [id number] 975 [place] 00:00:00 00:00:00 GULCHIN 523 Method i 2020-02-14 2020-02-14 Outpatient ERGUN, [facility] [id number] 037 [place] 00:00:00 00:00:00 GULCHIN 193 Method i 2020-01-31 2020-01-31 Outpatient ERGUN, [facility] 395 [id number] 851 [place] 00:00:00 00:00:00 GULCHIN 187 Method i 2020-01-02 2020-01-02 Outpatient ERGUN, [facility] [id number] 252 [place] 00:00:00 00:00:00 GULCHIN 723 Method i 2020-01-02 2020-01-02 Outpatient ERGUN, [facility] [id number] 252 [place] 00:00:00 00:00:00 GULCHIN 357 Method i 2020-01-02 2020-01-02 Outpatient ERGUN, [facility] [id number] 247 [place] 00:00:00 00:00:00 GULCHIN 186 Method i 2020-01-02 2020-01-02 Outpatient ERGUN, [facility] [id number] 244 [place] 00:00:00 00:00:00 GULCHIN 131 Method i 2020-01-01 2020-01-01 Outpatient ERGUN, [facility] [id number] 032 [place] 00:00:00 00:00:00 GULCHIN 825 Method i 2020-01-01 2020-01-01 Outpatient ERGUN, [facility] [id number] 032 [place] 00:00:00 00:00:00 GULCHIN 826 Method i 2019-11-01 2019-11-01 AppointESTEFANIA Muñoz [facility] [id number] 24 [place] 13:30:00 13:30:00 t; CAREY KOO, Surgery - Physici [facility] 2019-10-18 2019-10-18 Appointmen NAYAN [facility] [id number] 95 [place] 11:00:00 11:00:00 t; CAREY KOO, Je - Marli PATINO M.D. [facility] shai Hinojosa 2019-10-18 2019-10-18 Outpatient MHSE MHSE 7500 MH 09:08:00 09:08:00 [facility] Results Test Description Test Time Test Comments Results Result Comments Source Pathology Outside Interpretation 2022-03-26 23:58:33 Test Item Value Reference Range Interpretation Comme nts Materials o5iucVLtNZLlsCUdArUfHHQvNHQoc9qtTMTszWRhWhYrHhEdOzLtCxzvmRPiIGEmZqBuv2oqn059dMUy f6pfNPXiZyI7wNSpRVSqdWKuQ543CPKtYZeol2imx2QvYMCjyDZme9A5MVDWsynktCo2hRltJ61aj4G5 RxjbB6ziOOWhATQaG7KhXV4gUBAiMys7YLK6IGT3YUP Received iCCRsA0GtWX7iIFRwxSJbWUt8l7ttrCasPPRbMHD5q5cpIHrkxtAsFV1pds3wrJc4n4ddveWrSHYxOFF rpLEHLCTgA6BkpIioXx5icNz9iRabEqsvXRH1Htk8YX9ghx21zqt1qKpmSOIscrizDqX6UKbsJGQilyf jTNc4ZSbfQSSitXgyAEyiGZCmhqgxSYuqHZAshPS7SL (test code DoiKWfM9TpSEYiGQgzKZEliau4WjZfAb3rqQFzzHrbCTdrj4aow9azlNYqQze1SXYqGyGzJcexYGzhy6 Pap7yyTZJigt6bQYF0tRVouLwxy6Z0vYIzXNJpoJBgxyFlDKQptu15qIYoiPGakEQqox8hcyDjqENamV TpAZS2mQSzpsMaLPUaeJEhJROxVP5xnFMwLRXknK1un = 9973) biyULTyCnVmijfxYZEltRgkloUcQf0stHriSRM7OWewF5oyjO7qEkO3PBhnW5gjgY7nCQm0TTqczLG5H AUlgQ3tAK3sbsvfl7tpOsJgHZ8kwljef0qbRhYyDF5wbhx2h0gpQMW4ADmdXTSqJoR6pgA2DSCosDYeJ HNjqKxlNLilq648OBE8EzCbJSSto9ZaQ7IxyVeyI84d cVklI30eKFNknCnjqE4odXrpyM8hTnAaLfAwQNh0af37QWn0ktgyjFvvQJn2ykOpQJPgMYR3SQJssYVq FWOiK4v7xsClJXChYYJ0YRLaqNDrRRLbD1u1gnRzYRH0CYf9kuIcCTMpfBTvyHQbKVRlXeRvpJPtBIGx UfUmVUTnbPTnnXUokFNmmK3ojSviWGTbxQKihH3aYBW 6GVFuilsyXfEwhFUrWCChiDJwgp41XKOxrdTahFKgtKymlKZmXCH3HJUfJALmEJEcOBQ0VGQdQkNzpaV kFKeeiZBzHNFoMIQnMPCrDDZoKJP4PGJuZzSxdyRbNYomzKUhPTFsIRUgJZSsIPQfUZI5BBWcPgGwrjF pTCypbNLoSNBcMCOyPFUbWXDjDZE8YQGyBtVwnxGpKE oaeGDdZVLbXAvgdDLcXUW0J4lldEMzZFExAVnkaDSmLWTfI3eltLNtVMlvDMQqiPKnLfmjIARolOEsZs LnX1kxHPPiGlFaC9JfnAl2JNVlOXYnmuEucWTchDjcvKXwSAN2FXGhXCXwBYYxTQQ5PGRvWlJbxsJpFK vuxZZbMAQmJZXeGCFoJCCoUJZ9WZWhZvLfolZuBRdtc MIlNSHwETSuPWKmOBWyTPX1JSWgWoCptaEvGAdmaKMfPKJuCDNpJCViKIXzBDG2UYHhMqFwnnAvXWdts JLiULCxKZdvpMSpCDE0Y4mfgBElYZKkXQzouAMfJHYsV9tcnQDqPCgcLQMnnYEsWylcIHDepKRbWkYgN 1gzPRFxAuDoT2GsaVh7AzFuQTDmtoWzxZKduBntiGFx QYU5HISsHFBcWSEnJHR8AUPbDhZuvmNtVVptbFMjOIRvSQBdMUDhQRXdYTB7HTYaMpKeldEsYZdibPOv YNHeRKEhWRQfRSKeASA2KNTaNxDuxpMmAIrxaAZyTRTdSXPhJJMyKJQiJBI4VLVcDeNmxkBgLGxvvQJn EPEwULmhjHZmSHS9J4rmeWQiSEXtDQrhwDXaMLCkW4u alJZhQYseFVBdpTHoKfqtWIQxqAEqAqSdX4auDLMfEbIwZ7ZckTg7QpYcFXDoxlFjrV52Firws3YuQLR qBXG5TLmnXCbryEnjaXRvrgudBGgnowRyFWnxluiqIQNoWYdlS4sxViRgTSDdnDkqTYmkp8MdTSVjZOC uFvuqirJbELSqCSLaGYTxpB8bIgjnL5RihG6wDSvqYa eoX9wlXFEkw6UvlO0bJXifdSUtmexpHYlgxxRvEIibliluXGDhXCroS1tbUhPgLVVljRzyPNpwm7PsQF PtORDvAhwhljXhGGv8hdQcMQVhmTfexLVtTVrgosStgPevj3McdgYvjPukHPLaDYr7qiYjxsxmyCz8rG VlnXaxKVOsrAyjmS7nChYoLzIjNGklmLXyfemwXJqqc nXdSZczuobgGYOxZIctM4mbLvBtBQPnjAomJWxip4ZwAQOwZJFlXdbsvaKzJZTmI55zkNUdyZCpGDTwU IesZIMsYVAzEnVtcJOhGbHlRtVgnWxxuMueTAnnWtHeUZBkVYduP3qeRbBsY8KoUOEiJwRgvQEkZ2tvQ 4SpgJvoNPFdFUfhtCKtSLTxtDSdGZR7uTEjmzOjtAVw aEZwJUNfGCfnFKZ1sKEixbdksUStiyntUIusexR2EYEfCDeoSOPaDNTaEfFckEUnIrYhKrDhhFdfoTsi MAhiBeZsHZDkUIfgR8auJxIqN9OeANUyUlWjFxPUPMMbdBMiCEzykUOoswwgRSxeawNgGFtwnxhkTLDn LHoaH6pgNmLiKBIzhHlyOPqob1AlSECzMNHwIriptlR eENy0mzTzSBGfiUtvhF22Tuhwdl45XHYno3ncIXItV4ByhODiTJXcwUTnIStuMCelfNXhHLQqDkhoIAK luGTuZGGeRJkcsEWmJEYxWiApCTRhfASoNTDcIDAxqLYcPVX6K0d7zvIuRDLrHJb4amTlSJSrLuAfjOT wWGB2DZo1HxlzwzO6kVPbO5w9ZqkgfuOwRChijXZecn 59IHTshdTzxOGfeRaemTYhVPL3ZCKrBGLmJNUnLSL6GEJtHyDpwtYtZDzigTHeELKlRVRiUHDkTNVvOO Z8STAdHdCakqRsLYreoZMfFABqSHInXQMsZURhKHG5FDXtDvHwkjPyUBaolMNuTJWiFYSbSGYbRROeDF N6VZDnHwWdzcPvXFdfgKMoSTKzWRivpFWgRDI5V8ixm FJhHZLeONmmqTMpDLLyE6wdyPXpKFnrXHCqpBWwDxhlDYWgxGTlAzRmG0bbTEKaGdMhP0WvrTq9PQKjQ NAbqwFtuBTiiEpwmGIlUPQ1WEQiUATjZDWaCDL0DOIjMeHelfCiDXksgYLgLSGvKQRjVQPvARLrZYH9C UEdYqUhziXcTPjuiVUcMRUvYDHiOZQaLZBkTAC0VFMb TaGastXdIDfdnKOhEJPsUNClBVCiBHHsIYK5JKPcPaKeiyLrTEtqkORoHCXyDJhatCBpMJC2Y7lueNUs FECbBFqdfTPeGJBuU1gnhHApGTnrFGAhqUGtKfqbMLHaaFEsTmBzO1fhFVVbZtGyO2TlsTm0GtQuGIVy uxVsaEBusKhdoOJxUIS1ZBDbCDRbALZkNNG5OUTdKyX qnmNyDJxsoLHwCZVlIBKbJZQsWIRjOYA3FMXaHgReozFyZTsdhOBhHGFwXOAzGZMoVGTrXSK4UMBlPjA ohxFpINeanRDsGNImTVSaDVCzICVwNBY0WVNpUlIskvTiZWiinBXiJJMeCEkhsJMcYDR9G2llnCFnSKY uXZfkwQUnHNHnR2qswBIiGXxkEWOcrMAcCombVIXydU FxHnCiL6jqMVVuGzUmR2DldIk0CdXyXEYdspZusR83Qypyb1NeSTZkAQE6RVenBXsceMhaqWRygbfuHN atpvD9SAGuEVksKIArSOQdUnYguMFlSvZrSaInbHzmoVubFVxiVcQrDWTfMRpeQ6mfTcXyX4OlHGMhOl YjSO9kK2DuYsHgTkv4GBxsKSH9UKPUMXMgGETOL2GGR swvWPYEV2RthVtlyX6bUxPqKuMvOWddGH7xRIAoQ9bknMBgIMCrVZCaD5fgJyGwkF9puXjgVXblLfCjB bJhNIyntAYnmAspTPreBCDfcuFshC59Mxncg6BeTFQqNDK4OPjjYOoaxXqgxITlxsmtRGzqsdP0GWQeK WluXGYxXGZzMjBcbGFuZzEwMzNcaGljaFxmMVxkYmNo UIRzSAujV7wmUlIeZ5HmGCAgDxZnNKVrSr8xKKEeXWGmKDplDOWvMNYlJxAkwBUtAgLcEoCfdYcglZal HUlrObVyOATnVCuqI6jtXuGpA0TkVBFuYwNjaLHdF7zjG0XcbHjoOQViVPanjJDdAHIitNVuLGY0zJFu uqTaaPiayDfwzP3aMvKyLzFfHCgvuBTtrpvoLIrugpO gARszcvcoNLWiRJwxP2pqSpWgEEPiqEveAVxcj2OwTLUyFQExUrzdeyKvQHMkYNVmPfEjUnnulKBwkqm jQEinimKqNFpywjceRRSpUIfsU5ltOsKdJQYzzAwgTShuk3HyKMCqOYOuBasjxbRzIFi5biBoCBCpdLs fyK70Fmeeuv02ZXOzxwJhf0SbYLBfKBS7MKwtFJbixE nmzIEdcmenLDafxyJ5DHZtFIryGOAgWXAsShGucLRjPlHkIiBhvQuysIkbCStyAcXkMYTpRXzwG9ywSl FcZnMyMFxwYXJ9 Addendum 1 d7bieQKaDNMnyYH8KrWmCHMlk7eox8WfwYIxfUSdOZoatJZkvlDkyf47lJY7fX33UI6bQHTeKzR8IGZb wwG1Yqg7CVBqVHMkqACnM731g1okt4nigvApaRM0YCIhUQBaA9OcDE6kCAUkmTViY72voCRmTBM4IKVa GTSyjBAvCERsYCR2HEIhkSXiV0jeIEJtEF8mnjfgYJr (test code hQGqmMQIdfVC8OZAohTLcO1QcYJYlSAvdGCNcgrj8RpVaHj4blBNsdAncTLqwBAGvWJCoOWzhVEKxCrD sG0GtKZ45gKGiLFRaTVLVWEReHGU7FBk6CUBpAZMVGqawSCIPKG8RE7VfPITrGDCOLKSoo8raTDN9LMV ud77eTINxDv1eJIIbYLqspYOkNEHlBFlaKWQffJa3Jv = 37) RncWbdHwRmHMLbGTOQbFJqlazbkw6xlZdqflkxt3BhL9EgMalrzUT4LXwxOizoZIKpnJxiLWYyYOEdNC pgZUoavH8hLDNcTGFodSKhCVOpnFImRTEga68eqefqJD8aKOQbocQpMI9mAGAkBJPdziQGlyZmGYaiZ2 5qmxA0VPnjCF17yZSdIMZyXFWxubgwDMCkvCQiTAlzL XJ9 Diagnosis p4akgHYwUGDknPP5UtUaBYWfv6ipj9NcpYHxxAQgREirzDPzlvKhhm43wYW2qW05GH5uDCBePvD6VYTp plU7Ttg1LPIhLPYfuGRvZ957j6loz2ckktEljAC5KRHtUKYzO8CaNU0hKVVmiPEkP11pwRMjQUX8BHUz WTQcmLAiTBErBZO3RPYdtWWwL2ilADDoNU4fmsnqFUl (test code eLQxwRRYrkIF8FFCanXShE3OrGFKeLYyaRJRlbpi0HuArIb8qvMKxrFtbZEftMFSmVYDmXYmpNROnNjB dP9ShMP29jINfJDTdFRFWVSLdPQM3IJs8UHNgPGLRVwexYCNKRA8ZW1TsBZAiFKSZZAPcv4ueVNG9VHQ jw12hNQFjIr5wDEIxKTxdfRCbEXGtSNeqPIQytKk8Oc = 34) GchEguDzOoLMBcXBdgkoRajW5fu7q5jYSqRDUfbgQuamobLD9uu6PfAXTrY93bzvJukKTbKKQtE5Tjp3 44CLVsoahjoZHwBfMpHsedUtHmNNhiueGdKbKwQoMkvUvaHTX8xw2aQUdnNqqthd1caZGmaAzveNwulL fqeTlsreYlqzGqzjSnR7DuDQVdzLKfvRirKTJbfRgcy oEbgrSdaAUcvcxdiMFeAW27XHVbQuYqOOBeNT3qVZTjw8LhUPTqgv1nKN8kXHQpVEKpq22lED43YEZxF ZqeYHJgIDAds7Lrs2x2SJWyItAtC98vYSVehsQoqTJetSDgYAMqaF8twKyceHBcZM7vMUKqjT1xkLLbh 2DyYWOyetN0cC8amiJsxpScXT25PCalCuQtZolpJDUl AxOlBRP4nL5qTX3ulsfmuhPpKDTjRUDeq8RqrUQsc0DeEZOuanCYfsJneJXtj8QasCMcq09rdNtaLn15 BFveoIAbf9TpIajkGIIsyTUjDYazZkWtEDTvWGdbfJ15ZiZvRa7bGGUbEA16QQL5MMUwqX5do0z3NZFg dhc2JEWcNIulyDwozNflIOLjoKCklIUnYXXgw3luKuM hIALtz49xTZeuPBMfC16bpIHpmHDdQypueFRsDPSrwpGDFvIWyIAqsuxuwe9maZtzovvdn4EqX5StYfk eeNG9OZhaBkuzAOTiqLFaMCPnFEMlZSPoO44iZKWzjXSbUcbxU1ewoPI9lP0jr5m1MElxeLZcg8Iyu8S lXUYjKGYoBRTxBCVbzO7gzIvtPDAheahlIKLaoVRpWA BhcmRccGFyfQ== Comment z6lrvPOtRPGzlCY5WyKdJTEeo1rda9HrsYAqzLBlYTyabHCxdhXpnt68dYF2zC28NV1dPLAeKeC0YTIq szT0Tok4LYJzVICimKQeR037o9qex6zfzrHldIE1qPyhECTsvakbBgI2JMxcBMVpegbqKZo8ZRhqOWOb sEO7YVOzjQBjH1XcXPGxLU2wsug5TLW3LVamBHJqUfO (test code 2RURxrEZbKXUuxCwsGGkid600OWE3NcGaEWHtlhIbbKjavU4pFmIgSLJbPIzLwUFicCX2CPFxrY2lnN7 dsCzcsS7psYJesGQiyYZgzEOxmrOdt5abruD6pOV2YIEhXNHeaYNpiLSgQPHhcSSvflFqoMUudgHlBAr msSy3PZKlm4HfQcA9YG1aRIWttcpiHDjdwWGjNQWgGA = 9835) K4iUAen8Hlm48bVOSZJrutQXPHRFL6EKIpNMUasD8wPEGaf698vBDbzYBuiALvHYN8oF6nCRQRIoFwEN YPYLHrQPIrVIN3c3QeFdlSUEIgKMEealRhR6YsRcQnHONAXAK3QZqbE3paiArwbDAcdaXaK0NsYZHhO5 fwwj5hjUBoNBGjvNHzBJYqzsKYnGVcj2QpioHgzRWwx F9jcS7xhiGpacObiNqyf3Srt8RdOOZhCQ2fP79wyJDeE9ZbqbkgOqT8UDl1VXvyFCClBMakIK2kuN6oS TScLRYfTGQskQX6MeUOzGIsJPuvAzAjZS23aXFpTBXhJEpri2FooiIvbgUmcSKzlwWtNNBnFZX8jOXrQ A9rJUNtixnufrNryROba6QdQXU2qVJnoTIrN7SxcrSm ooTlYGXmVQ2vG04xosSmY2BkRVFszFOewV8iHJQ7F1exMXZsZP7nITP8JJBsl8Egdk43weIcBQcre4Nu EWYpc72dWzHiRD2edmzrj31hLTkxhBtcfeBnN6PxliXaX6dchtxhdp7tURGcxokiSMAoTkM8OCX1Gb5g uFBcAGZhuK64lz9ntEE4e8NgBF5rC7EsTKZ0DBzvSNI xcnZRd69lxbVdLCUcvQKameYdCADbxrVzHf6rMWLrsZoiwILdQZMqf2GhaQneoi0ybMYyNXCulnloKPC 9 Disclaimer m0qweEGdPDOjdEFfCbSwRGHcPDVvh1cnOZYmbGPdRgVwAwWlIcZlGcoxxMGxESOhVoGen2mvd727oCKv k5ozWFZeNlG2xRKxDUIjdJKjE439KBAkVEcmx6ciz7TeLNLhuYAtd9O4CAIDwqnocAk2cTirF59iv9H9 NoscV9gnHIZgAGGkH2XoRF3bRUByMmd6RPM2CVU6GZX (test code kRXZtX0XtHL7kENAsrUAjQHz8p3nefZyjYSBpEVH9y9sqJMtzyuKnRY0qbq8wqBr4n5dewbVtIPDnJHC dhYKRGQZwZ6KyiDynQu8zyRz4sJswEdwcJAB2Bde8EM9oit18dbj8fPgvUREkfehbVuQ4JXrgKIRasdb fJQn8WAgkJPLwxCF2QCIojCXeN6YoJUIcPA0ixmi3KP = 9844) U6ECjsGHOaQrE9QTOmsVNeNUThvTnwTZptj982EYC6NoYdZX0aY6Upq5I3aF5bhJHxKGThcSTuGeNpBR Jssw3iuXDjHKaqh7KkGOR8ygC5iVXvuHJhGVTgGQ97Akzns6BpRqdjTMI8HDMalzYjd7Ctl6zzQuCzqv FfZ9qzY0WoQUTgRVTuBMWcHvCnuiKom9Pvk7ZzvCQaw Xm7w7gcYGXnDPAsfReop1qgOWL4WWHnQ2M6qREfr2ggVAguFIGgfJG4mxZ4CJSqlKMsA2IkmB9zZYMgG M8yrsk8i4xeENB8SPmeNIGpFlK2wdO8OBDdaLYiFNKqhPttMLyuw041DOE3UiMuFAFhh9LbA7YwxSlnK 94rxZyvZ03oAZHpgLmfbV4dtGomjH0oOoBoNyHrDFiu xLgpxXDptwlkZFkfgoT6YXtkqiabZMPiDFywS8htFhXuZEElmKxtGEfpd7WmRSZuKZMyDrdgqdI5PQCK k05nFOZug2NkCXYubI4sqNBoRAhzjpJgyPJ3BSfzjaFaYmYwtfXjHTVkjC3hJBMyRS9fOWIjadLhux3j nmWqYORfBKYxM6ZeukskzTzkizUlAVBvyw1aqwBhSVK 3WHVIBB7VAMZrZYRbq03cGJNoaKmwoU9mzOJcnhDqXHWij9LddV4ovWJNGLQjB2mwPC5sFIgba8JcaNP itZWktYO1JSXkt0YoGwDsgwJunXHgsUJoY8NbkSopQ5zzSLZhBBYcpwKtpPIah9EjRRMvfQU6lJEgQO6 AWnXUx09yNNLhWGRNoeFxOHCuuSeapMO2hdW6wG9gNt GJNnFfbIHphVTqCnalOTQxt063ne6drwK8KIGnCVImlszcd6DtPVDpTGKyeE17IXLhEOKopl9whoksqK TpxyKgJ5Dhmhy5jC9bNEMdQIzaQMUzLDGcApNsaESxHlTlUfOstQjnkEyiRThdSwRjNKNqSZkkM7deAb FcZnMyMlxwYXJ9 [facility] Interpretation 2022-03-26 23:58:33 Test Item Value Reference Range Interpretation Comments Materials Received (test y4zftWVqYAFgsDVtJwUj code = 9973) UYYwTCQll0vhNGWqqIAh ZzEwMzNcZnRuYmpcdWMx VUOtUuFjc5txd227eDLz a4quWBQjXnF6rVBaLCFl nTGpB118GVGpYJqcv0jr c3SqZBMosSDav1T2BZLA dmfsqLc8vRusE68ye4V2 AhftK1xmUJXpAZPqL4Jt ET8xVGTzYdd4FDB7YQE2 KXCfXMUnN9HrCA5qDOSq hPLbXRm1l0hvuZckPCNe SRD5f3viMWcplsKfMT7i id7asVv7a0wrkkVuCBMj LIEziPHLGPDpD4PfpNvu Xq8csEr6gWtiJtuqAVG9 Vrn7PH0rzo40krq8cXxr OFAqltbcDfE3ITzaOGAe gsszOAi5YCzoMUVbrBmh MFxtYXJncjcyMFxtYXJn sFD6PZDwaZFtW8UySQDw CSvkQIFymgo8EzJqQa1q wKHagTewITddg8hps5dc sYByTmi6UPMsKhFzKtva KPmot9Poj5shDCUaxm9j BZF1cLYsqMpxv9V1rXPe ASWstOHxhbOoYPWgcu74 rDUwoWUczPGlhy0jgbLb zEGthWQgOZQ1rEBcecAl MFPlkLZeSOFnVO8nvBId ODAweP8xyiehRJDcWtIx pabwCMFerRdiocElJb9i iXunDSS4TSwbQ5fcqG8m BoK6DAiyJ7mckS9uYIe1 LMvbdMB4STNqxK3vGW6k ioooe8cnBtNdMW2jyiuv o5biMxAgDE8vhkj8n6bw NZF7RAirYFXzEeT3xpQ7 NDBcaGVhZGVyeTcyMFxm u047QML5GiHhJPHer0Hv B5DxrSwjE25ypZfzE08v HFZxeAxlgN8yvTtxcA3i MhHkMhLfZRf2qj76RDz7 xfrusVjbDMo4ifIbCHYi FRS7ZACleNQwLEBqQ3x0 vhDzVNJgYHP0BVCqzFZp PVZrK2d6ddKiTBP6GDh4 cnBhZGRmdDNcdHJwYWRk YjBcdHJwYWRkZmIzXHRy mVRngZQulUIfvH4qbBll LVYstYNemI5zMGH9BXTs cmgzMjBcdHJoZHJcbHRy sa92FFAfbyShnPPuvEws eIWjIMS7VYIqASEtMYPs INL3AKOyJpZvymCjVZkl bGJyZHJiXGJyZHJzXGJy GGE5DRCjLgVdptMpQRsv bGJyZHJsXGJyZHJzXGJy BGY8OODiSyWueuRaPVgk bGJyZHJyXGJyZHJzXGJy ZUA3CZHsYhMiyeZmSCil bHBhZHQxMFxjbHBhZGZ0 X4zhkEYcFRDzKTdkgYTl TPGzN7ujvYSeMHiwARUv cGFkZmwzXGNscGFkYjBc T1kiAITlHnHsE3PgkJx4 MDAwXGNsdmVydGFsdFxj uQGyLVZ0AFDxLQNvFSLl NQS1UOYfDiUzehIkQNdi bGJyZHJiXGJyZHJzXGJy TPF4QNFfAiTysbHsPIya bGJyZHJsXGJyZHJzXGJy XUZ8GJEcOtYbxvFuTXxj bGJyZHJyXGJyZHJzXGJy UGX7MJTtTfOjuuTxRIxz bHBhZHQxMFxjbHBhZGZ0 I7vldHXkDZMvIMbskYBc NVZgM6ovoEJzYNedTVWk cGFkZmwzXGNscGFkYjBc K6usPGHtHvShK3PwcLe9 NjAwXGNsdmVydGFsdFxj lAObKZE3WAFoQNZpWWEx SBV8LBPcRjMmayCuIMfy bGJyZHJiXGJyZHJzXGJy UYX1HNZpLsCbyeYaSQvg bGJyZHJsXGJyZHJzXGJy ZAV0XSWfDmXiozDdRBbm bGJyZHJyXGJyZHJzXGJy MOP9JDMlPkZkisOcYFbf bHBhZHQxMFxjbHBhZGZ0 A3ognKCcQJLaQCwahWJk VYDtI9hbyIEeJXzpCOUx cGFkZmwzXGNscGFkYjBc R9peLPEyVxUgU6CadKi7 RhXhRKOghkFdbI06Dybu i6GiTQQsKHG4AVfyULpl bFxwbGFpblxmMVxmczIw LEiyccfsAZNmKQryJ5go SqXqSCIznSmeJVlxf5Rq XGYxXGNmMlxmczIwXGIg LBTjZAInkK5bSkmpI3Nk xW9fYTwpPsujD5krDGYj e2WcnH0vFYzyiXCcsneu MVxmczIwXGxhbmcxMDMz HDmeE2teUrWcWGBbtXgv XXnhj3YgTNCeRXMuVqdf otDyQGt3gtIxMXBiuDiw qJBiJLublsOfeOlye5Xa stXyrTapCWMdRUz3nqUj hynilXg0uTGjmAoeGMRs tUqicB7sAiLsLxGrLEib bGFpblxmMVxmczIwXGxh xnueHAIzWJmaT4soExXi BGGnxRzvFCugj2DgUPDu DRHjJofcsdXiQWNqV79y bGVjdGVkXHBsYWluXGYx XGZzMjBcbGFuZzEwMzNc aGljaFxmMVxkYmNoXGYx AQabY6zoKuXmL6YsWVEa JnUomLDdJ8rtS2TqyIgc YXJkXGludGJsXHNzcGFy GHT2nVWxqkXbkXNexBOm VFFiJTqeUCT1zUYelhha nAEbnkeuRIkzgqD8RVQs YWluXGYxXGZzMjBcbGFu ZzEwMzNcaGljaFxmMVxk WnYeIFMnHUorJ7rgYdPe L9OnXWDcGlQpYlQWXHOl aXZlZFxwbGFpblxmMVxm czIwXGxhbmcxMDMzXGhp A5yoXoUzBMYphXmdDPnd n3VcYINxUPOtEhropiWm XQv6kqUyAPQguBzexJ64 Gwzaue89HOTbq2ybXSUq U5VxxXLqDXFhqNJnUFbh MDhcdHJwYWRkZmwzXHRy cGFkZHIxMDhcdHJwYWRk ZnIzXHRycGFkZHQwXHRy iMRnFLD4T5i3geDtTOKq CYw5giUwQGRgCaSczVAw PIH3WIi2OdoygwS2fOCm P8t1ZuchlfWgDYreuRPv ro91DCXzijKsrDVqiKku kOWwDQZ6DKWcPCCbOLVj YIC2LPHtFsKqwiNgKHmy bGJyZHJiXGJyZHJzXGJy PQX7QHYaWzZvauYaQUzi bGJyZHJsXGJyZHJzXGJy VKI1ONXcCyZlzhSdTHyi bGJyZHJyXGJyZHJzXGJy ZEU2THOkFbPchrTfTFsy bHBhZHQxMFxjbHBhZGZ0 W5ellLQlGNUoOYspaYVz MSXlD2crdHDxURrcZHJx cGFkZmwzXGNscGFkYjBc Q1jbRMGhNiKlB7VclSc7 MDAwXGNsdmVydGFsdFxj xYNjYIE9AJIjYJZeMXLk PTA0MHLpTmOfmxUwZRrw bGJyZHJiXGJyZHJzXGJy GJG6NSGqTsMmzhSqGStn bGJyZHJsXGJyZHJzXGJy YIM6GYSpNuQzknMnDZpf bGJyZHJyXGJyZHJzXGJy ZDO4WNCaZdHgdsGeQTtn bHBhZHQxMFxjbHBhZGZ0 P2ovvJIjWYHuROmfhSFb JINiI2purESpBGuoTNNp cGFkZmwzXGNscGFkYjBc E9snHTXmBhRbZ5XdcXd5 NjAwXGNsdmVydGFsdFxj iXRwTYQ4HMXcILXaAJRf ZZH1VBYeMqGlipEgFWoh bGJyZHJiXGJyZHJzXGJy WGZ5LRXqUePdwoOmSIuc bGJyZHJsXGJyZHJzXGJy DVH1FJTpCgChxuEyIZto bGJyZHJyXGJyZHJzXGJy NNM0UQVhEmEqioAqGDlb bHBhZHQxMFxjbHBhZGZ0 Y6vqvFIhEQGrIWposAQc QDJcC7plcSFdGHcaQIVw cGFkZmwzXGNscGFkYjBc Q4pxLBCfSqGpJ0OliKt3 JsBkZBVpjsEwxL25Wisd l3MiTOWhBTM4KCapASsj bFxwbGFpblxmMFxmczI0 XHBsYWluXGYxXGZzMjBc bGFuZzEwMzNcaGljaFxm GVjxReEvOHJnAHaaB6iq HrKhB8OrIYXkRuHdOI5c R3WdStHqCwx8MTvjMQC2 DIPRWSNcCSRWO4QGGlmu MEOHC5YxdMahuB8qWwHu HvQlRWmxBW6kKMDhE4th zUAbGPWgNQXvK6phMtUi tK5gqGkuOTdnAbJyNxVx MFxsdHJjaFxjZWxsXHBh poDnaN30Luhlo4XyUOHb KIP9EXmzKJvluWflxUCk ysfqRUjfoeV6DMUiBLey XGYxXGZzMjBcbGFuZzEw MzNcaGljaFxmMVxkYmNo REUdDFruX6alCwMeR4Vy XRQyRmViSFJfGh0pJDTr XHBsYWluXGYxXGZzMjBc bGFuZzEwMzNcaGljaFxm JUnoXeMkMOLoTJpfH0xk ThVnL0OaXFKiOqFdkWFe V3auK8AjoDmdWVWpWFys xWPaWORjkWBbUXA9kNGt weBklDppcGaqdN9kUlZr ZnMyNFxwbGFpblxmMVxm czIwXGxhbmcxMDMzXGhp X6fdXuGcEOFlwIakAGfz p0BxREOxUOKuSgakkbNr IDUvMTEvMjAyMlxwbGFp blxmMVxmczIwXGxhbmcx GJRaVRobX6faNqXqRENg oMrgQTysd5HjFENmPIEl VjbrihWwLWk7ccThYAHl sSpxxX96Hzusag72UBBr jkVwp4PtBMAmSRN5OCtz MFxxbFxwbGFpblxmMFxm hkK0SYCgEOvfVPTyEFTd MjBcbGFuZzEwMzNcaGlj aFxmMVxkYmNoXGYxXGxv K9qhLaAfZiTmTNynHZE1 Addendum 1 (test code = l1zwgVBtHWFhrFV1FrEz 37) OKSib9mpt5LqeWIgrZGw QHrlgBWifsKwwp82aWH2 nI41WU2yGVYoPfN1NMQy nmX6Dzo2ZKZqZJOtxXFe V853d6ens3xskhSrcZA0 JINwKKNoM2TxWC3xRPEd yUSwT19yeQNwVIT3ARTa ATEcgRKjQRJgWFI2IUHl jGTsM5ibZKBxHC9sirni YOpsOMwuTKYzrAJ0KCVj lTCkE2ZqXLMyYJqiFJRe rhe1AaZtBl4nfNZbyHut MFxwYXJkXHBsYWluXGZz LhEtI9LbBS16lUSgGHFz ONZNLQHpQHU1JCp4OZBx TFNORqokTSXBJX0GI4Pw XGQoBVHXLCTbs9jlKVF5 CARtp09xZCCcCn9mOWVp KTpccGFyXGNmMFxwYXJc eUw6UfZozJxjJzInTFPg CNZCnRSkcgrepw8pqNlp yhjsf5ZvY0XsNjktqOH2 IHgyOlxwYXJcbGkyMTYw GNFnCRkkBDlghZ8qYKLd IEJpbGUgZHVjdCBhZGVu r44usxndWA4tJXFfqsJg HZ9oNVIxGSUobnHGheEh HOqnR94umfV6OBzbDH14 aWZpZWQuXHBhclxwYXJc cGFyZFxwYXJ9 Diagnosis (test code = c8zuzDOsLPOcqFZ8JoSw 34) TPDmt9qhj4GlkEYdgXAn EIjtmAHuuiVwxc71uPV2 uP01CX6nBAYeUiW7PIWz ifX6Vsq3YSHhFVEkdFNu H083d0gyx4wrytRlmPG9 LLGjUBSjP5EuWL3hYKVe cDKoT56gzEQvZAB0EUKe MCCytGKyJQDyVBU5FYUn iBTuO1fhBQJmEJ3euysi OAklBDraNZXytPZ9RIGh wGGfD9EbHGZsXNmqWEQs zcd5GbIvWd5bfMJfxJam MFxwYXJkXHBsYWluXGZz RmDaD7TxSF79iOHcAGNs DFVURLKxRLQ5OQt6DFAw CAUNCnigSIJLCZ6EJ3Zi YFKjEHZWWKYxa8hoLHA5 IZZur97nJTCyKz0bIMHf KTpccGFyXGNmMFxwYXJc pDv9KyUmpTtfKySeHSOy QIhgxpIeqL5jh5k6zSSg ZYBgudXfspruGY6pq4Gl RCRxV99unuXlhCAzAIFa B6Uty598IGJtqphqmDVy NjBcZmktNzIwXGxpbjIx JmFpTiSwrYwtMSD8on2r ANotUybkqm7uuTQziJzm bGluaXphdGlvbiBhbmQg ajRxU2LtIVUzrOLvbYco ZXJhdGlvbiBpbnZvbHZp cdsyaLEkOD47QMFgLfVc TTThOX2zWUHnp0MyLIYm oj2vLE1gZYDuAPDhp13u DX52KQXvUExyWENqNOTr t2Nqt8b8OHApJuRbA98k KFBlciBvdXRzaWRlIHJl vZ0loMbayXXeOZ9rEOEt yH3alPWzr9FoXSQdgeY7 nO5bnqSfxmXvIW87TXov LzEpLlxwYXIgUmVzZWN0 aR1fZA1nulxzxvQoCXTu HERll1BefXSfw2IvMPOg mvUBhuZtpJVzr9PdeZIc o75orEujAs42HBkgxOUp v8ZwCkctZPFygUYyWPmq SdTxWOEkFKyunT81XgUi Ab0xJINnKV48ECV0JAWn tR3iu4k6QSVgtfk3XWZt SHlhbGluaXplZCBzdHJv lCFpBFYlz0uzNeQpEYNr a90tZNqcWBJdX11fiBEe dCAjMilccGFyXHBhciBD PhJNaJZsxrvyvp7fcTjy ohwih9WbM9HwIkbwkGO5 IHgyOlxwYXJcdGFiIFRv UIOuCBAnA38yYZDsjOOz HrswI8mwoSH4iA5uq4s5 JCtvkFYcq0Lmo8YrYWUp MNAnKHGfELYdcU9bdBub XHBhclxwYXJccGFyXHBh cmRccGFyfQ== Comment (test code = s9beiGLcUIZmfXX2DmPj 9835) SMBye2bls7HbaLNncLCe UYitpQPtztDyvp33nWL5 aA66OC5lGULeJwF0TAXa reK8Jvt9XXFiOVXzgSEp M796b8zqk9iyxoYevBX7 cYrmQROdijehDbG9HYei FFNkeiiaFDk4SKshTZLk bCI9MTWztVLyW2NiWNOg WD0epxs8RMD6AYedLRUl BtY3APYotMRpFEQelFvi GPuon178ZZK9SoLbVSUz jbYnxTulcW7oSaZrQFGg IHuCmGXrjIR3IMJatM2p pI3ncWtdhE6qwXGcuEBl zEAirNAmqmFuh7yphuZ2 nYR0MSDiNCEczXUblUGj IGNvbXBvbmVudCBpcyBu XDkgfRv0VOLgu7PtDkB9 FI6jXNPsgxaeTTtppEUs DRCaMLX5xPHuu7Lwv32z ELVQEbdcLGHKLOD5NUBr NDPgbB3rPPFte514lBYt mLZcpDUhKVD5fA6qWZOI SzEsIFNPWDEwLCBmYWN0 q0SdTcxKSBEwBTAgjzCi P1LgUfZhDPMMWEB3LEok X0exmBqitHMazsSsA7Cv HVWuD3dtis5nbSVoFEJq oPSbDENhiyGVdVMqb6Mw sbSqbVRkcI3abB1rsqCp fmQykBtrd6Jrr9DtHYXz WF8xL88ioKYzD9Fctomm WrS9QVl2QWoeHRPcRVmz IF3yyQ6lXTGeEYHbAQOu uTO2TqHFwWKwRAtuShRw CY38gZTnHFRvAHziv8Rq cyBpbmNsdWRlcyBhIHJl VKD8gPAhID7uTAAccgmi ggPolDMyu7OzHMK6pNNd eAWlD0YwzcQbucAmUJGi MY1eJ59dkrIsZ3ZsTOHb bQSqoK0kGQD7W7eiAMFr WQ5vKCO2NAFgv3Fgbg60 ylNxSXwgs4FaNFBua02v HzTzMB6bjjeqw88bARmu dArchpWwM4JrkkPmR2mg wphbcb6zNIVxczdyQJRe VnB0BIJ2Ow2roUVlVXVk sP21ed7vsXE3b7PdSX1d I8GdWVA2LUobCOGaoqCA w34selUjQXBhdECemzKn TMJqxaDpKp8kDYUkdVni tFLkLWCgx2CcuDkopx4u cGFyXHBhclxwYXJ9 Disclaimer (test code = g4azhLRwYMTbiJCrPjWp 9844) ECDrNRUdb4luCUEspNSu ZzEwMzNcZnRuYmpcdWMx VYLkCdUol7yka461aHLg p6gdDPSjErC2vQKvMWCx aJRqB280NFQhSEskk1yz b6PfNJNmhQJnx9Y6UAAT ytfprIb0zEqzF08ck0O7 TudgG8wdQUTgLPAqU9Vj VF8lQAHrCww3OHA6VUN2 GHHwQLDxA2LjSW1eXPMc zFGdAPq4q6npnRizQZMz XRI4y4gkQRpjwjZcZM6i pc5ncOz9b4cjjlXaMCJa HMDugWQJJWQqG9FsvKmr Kv7dqPk2nQwsVzhaWSG2 Mdl9SO3siz63dsv9kCjm HMZuehyiWcA5QZkvAFCa ubakKBr2AEtuFFYlxXJ3 TYBdnMRdX8ZiCSCqJL8i gld5FTA1AVgwHJNoWrQ4 NDBcaGVhZGVyeTcyMFxm z960JLW9QnBsWA2dL5Qx w8B3eI7qxJOkCNBfoHQw CnBoJTPowp0qdVGcVSol u3ZkBWU6nhN5ePOspJJv XHJpNX26Qffhg0XaLzpc OUR2TEVoxrAqi1Jer3yq QaWmvxJvC1bzC9RzJNSp KRWjRNGyOzLixdSxe0Lo w8TihCDzhYh3l3lgGOWr XLJcaIdpa4yzOBL8HSLh M0I9pLQcq2tfJJcnYJEo bPN5fkC6ODXobJBvB0Oy aB1pSIBjOL8mcfq6n4xy ZBI2ZHjaDAZqVqQ1ksH3 NDBcaGVhZGVyeTcyMFxm u710MSW4FzXhZXJkc1Pv G8BppYcyK17pkLzgP04b AFKrkGsciX0xjMlipN8r ZjBcZnMyNFxxbFxwbGFp xjopQQylhfA3VUndosoq MMPgCCxyE5niVeNhDWLd yKhsPLowm3UrQBObJSSz VmownqC4MKPUt79oKVTv p6NtSOYosZ2paUDnTQui moYqgWP9QDfmlwZbAwVs kwHsGYQrpG0oHOOhIE1u DGKmhqGbqc2lowLeCQJy RODcI3XivadqnDnbzwBa YZPyli1wplFcIWD6NHAA HM0VZDRiZBHre67mQRDs vAjqqZ5skBCqrmNtZKEh j6VngV6nkJNICLWnK1nn XZ0tECxso2NyjHJxeKNc uIR1PQUqo0UtNmKtbuSw zUXqlBJlG0CadGmsE0qo JXHuZOJdbiKapSHdy1Nw WXYctUS7rUMbYY1CXtGA z58cUNUvHMWPulMbPCKk qXbygJD0cpL8sL2lUqOC ZiBhcHBsaWNhYmxlLCBj m194we1qjrR7WXWaIQXj nsjtg6LlJBZoGNOfvG78 SAWkHNZejd5agpphsOJe nxQmQ0Moijs1jA6cULYm YWluXGYxXGZzMjJcbGFu ZzEwMzNcaGljaFxmMVxk ZaSwLHDqUQedW5shOsVe ZnMyMlxwYXJ9 [facility] Interpretation 2022-03-26 23:58:33 Test Item Value Reference Range Interpretation Comments Materials Received (test n4tbvIUmMUExqRCoQvBl code = 9973) PMSdPBFhn6ujAOVuaQQs ZzEwMzNcZnRuYmpcdWMx OHCdBjQab3tkt245kTWg j6blAUUmZtI7fCCgZEVg fZIvV006UNQxPEfxi7lh v3NcVUQveGVde6J9WFEL zcqxiFp7wRiqF06ou0L8 XxdrP8gjDHXqKAPjP2Cd XQ5gODJkLfe0PGC9YDD9 LUZfKQEcE2JrLR6sBBDd qDMbYAt6a9emuQpjJZEn NIW9z2alQPzlosErVJ9x zk0flNv3t4vtxqYgFPKo IIAtkMRVIAByA4ImrAzg Gd8wsDy8rTgeVndmYKK0 Czk3JX2nyt88lui0bSds ELTutludSrB9FTqtXHMf fqmrGCw4NBvyQUCgqBrb MFxtYXJncjcyMFxtYXJn fEO0XZAlhLSnA7GtRQOe XQkeLLLcatb5JjQyCd1r aJIgtBgmHXjuz8jms9ol iVJyHep3IAHvWeIkWgwc KAbtq3Oyb2ceOBDekr3k EVH0vSXvfFxzk6J5rVYh FUVhnQKooaOaVQFiii14 jIZezINpvJYjjo8nftPn nKJprJGfURE5aRRpazPl WIGryIAmVZLvFX2tuPCf SLVhxH7thulgNBEfOqHr fvbeONBabUpievQyNb3r sAtaYLZ6PCsoB9bmyH9s UfJ8MRhkC0glwB1dHIb8 TMsrdGR1DKOvtK8qDT6m osdwf2vmNoWkOK6tvkrn j1xdSlMjXU1tpzm1b4fb PQG4OYshZEFkHwT7hwZ8 NDBcaGVhZGVyeTcyMFxm a038HSX4UbZiYCTef8Kb U1ArpXefC28ryGwuH43o GRTngZxunG6vsVxfgW6x HlOhFjJyLCt3ja67LLh4 vhdpxJykQUr7zsCyMUFp OLK8MYWacXIiNIFyF7p0 eeAoUEXdPIL8OUWumAEd TEIyV0j5ngFcRJO1LUl0 cnBhZGRmdDNcdHJwYWRk YjBcdHJwYWRkZmIzXHRy xOKeoRLkhZXimI5lfGec IPVemPYhkW0jNZE2NGLm cmgzMjBcdHJoZHJcbHRy az32NHZlpsIxeAVsgUya eHIuRLQ8MGApUNWbGFXh WUO5WCRjKnDoesIqFGhw bGJyZHJiXGJyZHJzXGJy XLP3WXOpDxDwhyJwYBui bGJyZHJsXGJyZHJzXGJy IRH2YLGbUaPecxScUPjy bGJyZHJyXGJyZHJzXGJy LFM1AUSbUkJzcmCxLLxc bHBhZHQxMFxjbHBhZGZ0 E7drdKUlDJLnBKqjnQUa OOSgR4jimTHtONiyOWRm cGFkZmwzXGNscGFkYjBc G2biQORpDqToB0VwzQz9 MDAwXGNsdmVydGFsdFxj gVYjEZK7VDCcSWUyXJQi IQV1UHNrNdSgtyTgZUtu bGJyZHJiXGJyZHJzXGJy EVL7LJIcJhEsjoMbLBed bGJyZHJsXGJyZHJzXGJy ZFV1CUEqRoQrirPwQAye bGJyZHJyXGJyZHJzXGJy GYI4PAKqBoIejbBgGKdf bHBhZHQxMFxjbHBhZGZ0 J6pkfLRvTJDsIJrqzASr SVYpQ6yxsGLgUVkdAMEf cGFkZmwzXGNscGFkYjBc X2kyUTSvIqIwZ0NuxFk3 NjAwXGNsdmVydGFsdFxj jGCpLIZ0NCYbNWCfMHHx IGA1WNYwFvPcscBrGIdl bGJyZHJiXGJyZHJzXGJy LES9FQPfOkAtoyUeGHdp bGJyZHJsXGJyZHJzXGJy ATL2PJFbTcFgzzTnAHis bGJyZHJyXGJyZHJzXGJy EAJ0THDnJwTgwcDjMEbg bHBhZHQxMFxjbHBhZGZ0 J4dvqYJyODTbHVtevOTc DHQkK1qgkQMtODmiYAHn cGFkZmwzXGNscGFkYjBc Y4ddWTRzQhCnV8BazCb2 XrXsHUKkhxMinR24Cysi p2NjADJpJRO5AOrxXGio bFxwbGFpblxmMVxmczIw HLlzrolzLYZyZPdfM2iz RnIeNGXjrIedKKtei6Uj XGYxXGNmMlxmczIwXGIg ISZkAEZdiQ5mRnthB8Dk wB7gKMfrMjshX9iqLVOo d6OsaH8oQOzadYWgdiam MVxmczIwXGxhbmcxMDMz GSclX5peFpAmWXWvnQql AZpdo2IbCUGzIACfMotu hhAqSKo3opHiZOOkcPxy qYJlPBgdeoSppOohk7Yu mnNuwFasBFEpGPc1anHr dgycdZz8qUQfaOlbKBWb mOhgwG9iTkQsVxCwKFiu bGFpblxmMVxmczIwXGxh ahszCULxLZgjI4cpWdMx UWPdbWxdWNstk0FbBXHb JOCfSzuasiPcAHIoX55z bGVjdGVkXHBsYWluXGYx XGZzMjBcbGFuZzEwMzNc aGljaFxmMVxkYmNoXGYx ZZkdE0pdLpTjC2MhUEBo KcHjgMTqM5giH1XsfSzh YXJkXGludGJsXHNzcGFy LFZ6oAQcuoMomNLclHIq KVXyWKbkHDI1rVUgbkvw yLCnfdnaGYjarnR3ZRLk YWluXGYxXGZzMjBcbGFu ZzEwMzNcaGljaFxmMVxk UmMdKDFyHLagE7ahSmMe D8XwTSWzTmFgWjNQNRYe aXZlZFxwbGFpblxmMVxm czIwXGxhbmcxMDMzXGhp Z8ilRsAiSIXngJgyWUrk r6LmNGVxTPLqVmmumtCt VTp9tyHxIHNurIgecW93 Pkgpgm25NHPos4spGNIs T1MqfSXlJCXmqSGsYNmh MDhcdHJwYWRkZmwzXHRy cGFkZHIxMDhcdHJwYWRk ZnIzXHRycGFkZHQwXHRy qCOgAQU2W2c7jhAhWUAt SUl9bsSbBXOmRbDxyRDd CCZ0QTb7GgkbheF6pCOw I8p1PbkgfnDkVYwgzWEq su58UULsomMrzHUnoCdo gBNoFNA2NCVsLSKfXJGu XCQ3PFBiVdYrfoZxCWlr bGJyZHJiXGJyZHJzXGJy VEI9LMTwDrYibcCoDObp bGJyZHJsXGJyZHJzXGJy ZIM2JROgWxTyaoMcQSia bGJyZHJyXGJyZHJzXGJy CST3EFXuLhVdosDwHJni bHBhZHQxMFxjbHBhZGZ0 M7uqwVCbAOLrZTxzlQUv DPEaB7yydBLoTAhuPTHz cGFkZmwzXGNscGFkYjBc S0hpGPJwGhNaV0YsaGw8 MDAwXGNsdmVydGFsdFxj qUJcKGN2QHOpVAApTJXm IEQ1PGXsBcXrfgPaRTih bGJyZHJiXGJyZHJzXGJy CEH0FATxMoPvgtXkGSxt bGJyZHJsXGJyZHJzXGJy DTY8UGBnQqHgaoDoWMcp bGJyZHJyXGJyZHJzXGJy HNI3TBUsTmBgzjTiTSnk bHBhZHQxMFxjbHBhZGZ0 R0psoIIyLSVmTDdlsOJc NYBmH3oxnJRwZEldGBIm cGFkZmwzXGNscGFkYjBc T0gmHENfCpWcV2BjrWd6 NjAwXGNsdmVydGFsdFxj iBDdPOW8YNZlBHCoXAUd AKC7MZTgNvDiuwHvECyb bGJyZHJiXGJyZHJzXGJy LIA7KYMzQfUxumYxZZrr bGJyZHJsXGJyZHJzXGJy LXL4BLIvZeGlztMyRCkb bGJyZHJyXGJyZHJzXGJy QER0YZGkIiZtyhXqSFws bHBhZHQxMFxjbHBhZGZ0 I1rlfDPdBZEpZJyvlPJj PMAvE8xdpBYeDBcbITRv cGFkZmwzXGNscGFkYjBc H7leFWYuFqUuG3AxvZh9 OtVhJTRqpwWpbM32Jzrs q5VyIROvYNQ9KGatRQpr bFxwbGFpblxmMFxmczI0 XHBsYWluXGYxXGZzMjBc bGFuZzEwMzNcaGljaFxm GNcfXrSjWZWeLCkqZ8mq WcGhW2MwEQDxRkGdLV1p A2NcStVnRkw2WRuvWPN6 DURDFQYoMEKOV1RGMwea GGPTN8GmoDckoV3wRnUi ToDbNAbmFD3jVAXiP2fi bRZgYDLoTPUdY3eySmAh uU4ulDvlOMesMzTvLsDe MFxsdHJjaFxjZWxsXHBh biCdxF42Bpfif8LlKIYn FZY5LKriMGrbmLdcgGBy cbpzDZnwflF1EZOmDEmb XGYxXGZzMjBcbGFuZzEw MzNcaGljaFxmMVxkYmNo DVScNDdhW2igToUqL2Hn NZKyHrFlPDBrNz8aYZGx XHBsYWluXGYxXGZzMjBc bGFuZzEwMzNcaGljaFxm JUldTfOgECIeWWhmR8wr KzRlR8ApYRVoVaCxyCRb Q0gyT8WluXffFNOpDEmr oLMgYTAkdXYvAOO3bIFw jjIwpMepkRaicW3mSeAz ZnMyNFxwbGFpblxmMVxm czIwXGxhbmcxMDMzXGhp B8nzFiHnOLHyaGjiZOrq s9WeMILfBLLiTnxeblXs IDUvMTEvMjAyMlxwbGFp blxmMVxmczIwXGxhbmcx IRUcXWxbO6lsSfTsPHGw xLcnACcxx3VcHUWcNHSd HusuheDcCMg2hpZjHDRq tPfhbK96Lxbvpi67UCWa krVft7NhDSYeNKD7MLql MFxxbFxwbGFpblxmMFxm jkU7UMHaWDitEPYaQCDf MjBcbGFuZzEwMzNcaGlj aFxmMVxkYmNoXGYxXGxv C6hcZmBxPtVdEBgdYCX4 Addendum 1 (test code = u2uusCWyMYZtlVV8CiHf 37) SMYee9ivp1VtgEGekLKu TKpkeDNafpOebz18fBV5 zG67WY9sZXRnXfA3ATFg pnC3Wfx3BNBnXUXzkUNu F407s9leh5vgvuCixRF4 OIKdEHGwS2EmNL9yLAAe bXAaG36qjOGeVOZ6MASx XRPmxSFxYTUjTQJ5WSQp xKAeA7qeDOTyYU2zevpc VTkdHKlzDPXmvVD2ZSDr aJLxS1OxNCOeBSxsXFOx ozc0ItHjGn0hlKFaqUtl MFxwYXJkXHBsYWluXGZz GdVoB8LjAJ18qLYoDZHh LFAVFTOfHCD3RMx1RGZe TKKODglnEOMCZA7VO5Lv ETGvOYDMQBLtn7rmGNG5 GBBuk66iIIFrCc9kVMWi KTpccGFyXGNmMFxwYXJc bNl3HiPekToiFlArHMGm FRTDsHTwghvajn9rxNsi ovklq9IbT8VeBlyjzEI9 IHgyOlxwYXJcbGkyMTYw TXMuTQdlCCwmxE4kOMSr IEJpbGUgZHVjdCBhZGVu z39ehcpyEM3aAKBvjmPe PT9cYQVmOTTrqwOPgtDh KCieA41njcE0JSakJG38 aWZpZWQuXHBhclxwYXJc cGFyZFxwYXJ9 Diagnosis (test code = z1qmqZEsQKVjgCB4QjTl 34) FNZhe7dmc3PluHStsKWm ZJufeGGgixSrem55nHJ4 jZ96UR0yJFXmVzT0IGHq oyW4Afn6PNUfTBCssQBn P268g4qvo8yeqfQelVU8 YNHpUDKoN0PnXK7zNUGe cTWmJ40zmMZgMAV6HDXh JFIboLMvVYJeNLG3KZKt xFAfW9rbIFCvCK3uanbn ILpuZNweSMCzdHU6TRJf hPQvL0YdFHBhVJmcXUDb eya3KsHwAw9moUPlnTeo MFxwYXJkXHBsYWluXGZz BdFuN6QjZC41sMRdJPWs FSBAHISfSLN4NSz7XHUv EWGVQjvqBLEJAV6NT7Pw LWVjKXBHNIAbp2qfNKI1 JPQbb11bVPDkHw9xWLEx KTpccGFyXGNmMFxwYXJc wEe0FvAonSpeNlFyOSYc XSljvcVpxM3uk5w2rHZz NQHrlcVxbtkrGP2rx8Va MZGhZ48nepZncTHaLSCb Y7Uzj788KEOfigqfvPCz NjBcZmktNzIwXGxpbjIx XsMpDjEniHalACI8mh8p ZQdlGtleok1ugDJsmGej bGluaXphdGlvbiBhbmQg wxZjE7EmYAOdjBYlsShi ZXJhdGlvbiBpbnZvbHZp vtqqtIXpFU16YRNfWzKh ORAuXM4vRBJeq5CqJEFr pr0zVK6xAAPrFLEwo76o MM36DEScBHhxBDUlYSMl r9Pjt8e6PNZyHwMdV90l KFBlciBvdXRzaWRlIHJl oO4oaHjsoXUpRO6zGQJa oY4hsOOjn2XtUEIsmmV0 uG8yngHziiQlYY43GMka LzEpLlxwYXIgUmVzZWN0 sA1jVO1fwilbiuKpQEZu BGVun3QygNAgx7PjYESa gbVZkfGteQYeg0JzwBQn b10qvSxrGe33ZGckmHBm j4WsMylzDHPqxTPmNHmf MkIzTJHnAAbxqD96DbLo Mm7zTKYeIZ21WYW0VNUr pV8qf2s0DUJufdj6CBHi SHlhbGluaXplZCBzdHJv mPMoUTDnx1ykPdHaKSGc n58kKQfnZBImG20rkWMh dCAjMilccGFyXHBhciBD YnPYpOPcmmflaz6qmWxv gjhoi4IwW7HzGposeVZ7 IHgyOlxwYXJcdGFiIFRv DXOtYJYcJ84wMQTtfSOw OzdtY8oeeNC4sR6ku0b7 GNrdzFFfo1Mqw8UvYYXb MHXxHNIfAXOteC4htVno XHBhclxwYXJccGFyXHBh cmRccGFyfQ== Comment (test code = o9mfrSVyYYTzjAK9ObAa 9835) TBTjs8cmh3RpsIAlkLTa BJeveMEponQkuv29oZU3 sL29ZN1gTAJlLfB0OFBj mbZ7Awl3UKNyEJSssKJt L314i9azf8fiteOkzFM7 hPgcCCNfpbooSpS6XWrv DTGqelpoZSn4KOmsVCCm sOF4MTUhxXGwU3DlMDVi ZA9olsy1XSA6VMymZAWo DxY6WOKayDQjFRSnmNcu KFhlr974IOT9TtKzRVWz ymGrgKlzoP9tObEaACPb MOpWsOCtkAV9VKPkdM5n fB5nbGxbhY8hfBRysOAn qQGpiWSqoqPty2gaduI5 bER6RGNyGKTxySYaaNIk IGNvbXBvbmVudCBpcyBu KHnclGd3UOWkm5LyDnI6 BE2wIEUycnwzAXxlsFYr RRNtYAD1vGBmh2Tes60f GJRSPuzuTOMKHLZ6RYDc BQQgeK3yTJCjp287qSOg hKEwoENhUNH5nU6xHZRP SzEsIFNPWDEwLCBmYWN0 m3CoForHZUDhBSHeoqCg H3NpRiBxTCBLCPJ8QExy X2ksbVozwXOpfxHfG6Us JWPeG3uupk2wpTUkFAQl iIKuBJDsroNQeZYtm9Om suBoyDFiwE2vgK4qzaWa bfSnzVxys0Itc1WtULWn KG4rI37hgVFzZ6Trdnfq BnT3WAk1GWzfTDXqTLqe QM2rjI1aXYJrDOLrMMTp lYX9LuHSfUZtNPvbVfFg OG16uOTeMCWmLXhdt6Ze cyBpbmNsdWRlcyBhIHJl ZHV9pPJwMI2vQVCuvcbc kfKrfUThz0FiVRA1lIOk eLVzM8YfwfNshvEmGMSy YV8nI06weiKqA3ZsUEVa qIGniA4yECU1L1paKPNy NL0nJGT2HXImc7Jvhj13 sqQtTEsek4ToOAFcd26h ZkWwDR3yphgdo02fVUoi fNxykkAbY8LfejFnA0oq iuzlyw6nLBHnkvvgUBMg IuT5GCO6Xg6qsOOhUGFn lE19fj6zyYI7k6RvVN8z E9SoOYH8XSciXZNvamJT q87shiNbNZBbtHLrtxDp MWNviqVjTs4mCCLghZmw yPHcBUSqo9XviCxefm5l cGFyXHBhclxwYXJ9 Disclaimer (test code = s2nrvLEgZTSraLGzAqWc 9815) XWZhOBYow2gkMLAsbWTp ZzEwMzNcZnRuYmpcdWMx PPAoQcYms8gra615vKLe g1hjQPBxZzX3dJYvRSHy uGEyP667BYKfXVrpq3lc n2MqLEGudGGgl7F5OQUL qxusyNq1zDbuH31qe3I8 KpfcQ7ozITIfYUBqE7Yy ET5iGZGoMps8WQE4XIB6 IOFjFEIfR9WpYZ8aSVEy vOWiGZj4l5urkHvgSRTg JBL1m3njEZxyzxKiXP3k vc8tdNy7q5xexaDlCMTn WNMjxGJLDPOgR7TygXsc Nz6waAl9vEhxKmsoPFF7 Hip1QR2mbu86tte6kXzh HDLrcpzrRrT3YEiaRINw nglrVEn9DZfyWRWacCV4 AZXxsZTaG0RxBIVgBC5b lzt8DGE9RPtlCNLiMhL7 NDBcaGVhZGVyeTcyMFxm s128LGA5JwNzTC1cQ6Az q5X3dI1ixNByQZXixVNe GuGuMSDjje8iuUUeDHsi f6InWSI6jlD2jYIeoDNn OEAfJE59Obtko4CpOofm GPR4ZJRupzEhl2Tht7op WdNywtBjJ0vlJ8GfWRRd TKFdXKFxMdUvruAem3Rk u6YjpPFbdUy5q1kzIHGl NTQmsVkpw3aaCJG1OCUx I5M3xELej7mqOAhbSRJs tWC8bvR6MAMdyAUrC6Hy sW4kTFGrCV0nman9e3st CMG6VOqqHVRdVwX5joA8 NDBcaGVhZGVyeTcyMFxm n705SJE7IrUoOZDxz4Fp J8FrbNhnS13urFqhT13l XKJlgVfxnY1eyQjviQ0g ZjBcZnMyNFxxbFxwbGFp qbjaGXyqvwJ4BIbvinsb RGApXQepF6joLrMbCOPz uOguFXyie6GlKKFcQDDb BraixmJ4RMATl69mPMQz n3HaWPTluT4hgXXxEZzu ujVtvBG7GNbmhhKoZtPj efMvMWBllF9hWHLyDW1f NYPtgtJbra5yvnKwCKIi VJZzP7IhbjnvpVpqkvAp KPUmoj0xpyUqHMG2LSFT QM0QZGEhSINpc54dLPRx hYibcR7nfIZjvdPhBQRu n5DjaA2peQPHTPPqB4np OV6iCMuow0ZkmLTkqSMz ySY6QEYfr9MpQaPrnzPi cKYhjLGbM0XtlUlzB0kv RBUgOGTlowAtaZDso6Co FLGicYV7cDPgJQ0EZhRI t53vCOElWFQIwaStJAEt kEdxsNJ2ksY4gF0dTdCM ZiBhcHBsaWNhYmxlLCBj d264qn1kcmM4VQStJDWk iexjm8NnZPXuAAWzgS94 PZDcLOJeuh3antraoELk woDnP9Elyba6nC9aWVKz YWluXGYxXGZzMjJcbGFu ZzEwMzNcaGljaFxmMVxk RqDiOHHtQJqkH6jnBdHy ZnMyMlxwYXJ9 [facility]ation 2022-03-26 23:58:33 Test Item Value Reference Range Interpretation Comments Materials Received (test [id number] code = 9973) ZIGoASRbj2tqQAFajAWm ZzEwMzNcZnRuYmpcdWMx XJOcGyPac6nkk801wBXv q2qnLRSoIbZ0cROnSZCe tUHqK731SAGfZZsrj0vx l1BbDJVnfCJmf5Y7RISX czlqpMq3cAglP34nu4I8 HjdrW9qlGWKpESUpU3Cr WN1bCVDoSst4XVI7QYW0 QOAxJQHlF3XfOD9xAFAu jHBoFKk3p9osnFhcWZSx LRM1l5xrPBzavbJgNW8g sn1heKs3j9tzxzXqRKSl DEAayYCRLWDxN9MogTvr Ft9xoEh5iGroQvmtVYT4 Vqx9DL4iig61xbh7aEbw CKAlzxwgBdY1GRkoFNWg dtlmHQg8OGlpIWUjeBui MFxtYXJncjcyMFxtYXJn aCV3KCBerCRaP1YxAYDg NMuzKCNuawk9EkFoKm3e tADymIljEPurk8qeg1ip sEDgLxb7FMSxSmOkRbsv TZmbz4Sch8teYXXbyl9q EUD1nCZkfMsog4A5yHSf RTSftTKxklUcSPFqju82 yFVbuDEhnJMffr0mdfKk kEBwsAQwSKL0qCTqwnIo IAOofLEfPXLgVI0wzITx YKFufZ5yeiaqVQOyYcZm zcueGGVonOqissKrMy2c aRxwEQF0QNzpT4jzyU8p LwF5DFaxJ2zsmB3mSMv4 CEhlgYS3DSLhcM6nPD0h fhygz6hwNpWeGP6zthgo f2rvWtSnYF7yewq5f1mp QGE0ZFtdVAMwEhX7ewS6 NDBcaGVhZGVyeTcyMFxm u176NLJ2CcYqBZRti1Cy M6RwbJfzE72tdWmcB26q XZWhwGanlR5agVqoiU1e ToNvFxAwZHs6ah21BYq1 ejwtxZcwDDp4uqFfGHWq MSX3ZULpkRSxFQJpS8y4 seYwBZAnLZN7JREsxKJz SDYxY8d8yxWyXQO8ORb2 cnBhZGRmdDNcdHJwYWRk YjBcdHJwYWRkZmIzXHRy uMXqyTPqzDXzlI8zgEru YYDswRBzeD8mOKY0ANNm cmgzMjBcdHJoZHJcbHRy gm77PWDjvkKprRMriBik qQLgEWB7EMFhVCRbZOFu MOG8LGJgXaTkjlGmEOtc bGJyZHJiXGJyZHJzXGJy PLO7UPXfLoCwpqUsLLzk bGJyZHJsXGJyZHJzXGJy VRH9HLPgKtOgzgSuADez bGJyZHJyXGJyZHJzXGJy KLO8VOCfLzIgraWzRUcf bHBhZHQxMFxjbHBhZGZ0 G7lvtMMoSAZvEOjlqYWg QZVlD7gvwCJyDWfoPLRw cGFkZmwzXGNscGFkYjBc N8mhCUHsSdXmC2SreJr7 MDAwXGNsdmVydGFsdFxj jMVhYOD6CDWxWXHuEUCd VOF3OTWcMnDtsgUjEPxm bGJyZHJiXGJyZHJzXGJy YEF3WJCzMfDerwVjULvd bGJyZHJsXGJyZHJzXGJy UGV4LVZjZaPibhTbCGcc bGJyZHJyXGJyZHJzXGJy LJI4BWCxZaFdbvWrIJft bHBhZHQxMFxjbHBhZGZ0 L2apzMRgQZKnJPlbsKNn MXJrK5nkqBDtBUroGYRt cGFkZmwzXGNscGFkYjBc K8pqSIDnQqItO2QjmHj0 NjAwXGNsdmVydGFsdFxj cRSaMQC5UOAnTOSlHSSj NKY5VJByCrTigeNgQTqq bGJyZHJiXGJyZHJzXGJy BMU6XFTeStShmaUlGRey bGJyZHJsXGJyZHJzXGJy GKI2TJNqGzFdtdSzYEon bGJyZHJyXGJyZHJzXGJy KWW5QVNhReIufpCnHUuh bHBhZHQxMFxjbHBhZGZ0 A1zbkVPxSORlRYrmkEFe QMFqM1srtXJoOLfwUOLo cGFkZmwzXGNscGFkYjBc C8scIBGeEwXoS5VbzXu0 OiNuUBRyppMkvW50Negx u1GiLSPnSCP5NSwlTJlw bFxwbGFpblxmMVxmczIw JYssyjmhEABtXHozK4aq ZwRrWMJxvItcXMeju2Bq XGYxXGNmMlxmczIwXGIg ESJmCKOoaC7gAhltI3Wj dR8cIXbrZpxaN3kxCKMk a0EmqQ1hQFbyePMmwxlh MVxmczIwXGxhbmcxMDMz IJcoK1flBkCeCTAhgZna IQhme9DoIKQdQEMdYdua dxYqQAa1edHgRWAaaIux zTQxYWfbzkGrxLalv1Ps pgTgaZqnSLMdDVq6waWs jzglnCb2eXJtjKhwEGCo dRmpyC9pTjPpIjFtPMib bGFpblxmMVxmczIwXGxh ubovMJMaAVeyM5kjDcGu HJSjgHxbGTcoy2OfNIKp PODaRbpnxmMmFAFiE37g bGVjdGVkXHBsYWluXGYx XGZzMjBcbGFuZzEwMzNc aGljaFxmMVxkYmNoXGYx MWdvH8bzImMcN1IuCOHa RmPwuEUgY5nkO3KcvDvk YXJkXGludGJsXHNzcGFy YCA4pVVndkQknDWxuRDj IWBlZLkjZDQ5yGBwqjrs fAWyyewyMGtfwsL0FQTw YWluXGYxXGZzMjBcbGFu ZzEwMzNcaGljaFxmMVxk ThOiLANeBBvdE7elQcCn F0YoYNKpMsAzGhQIABSy aXZlZFxwbGFpblxmMVxm czIwXGxhbmcxMDMzXGhp B0dgBaAhNZXyuQbtVHzj e5SeJTHwUDLfGojkrlSf FMn8owWqJRCsiKyfhT51 Nfpzdb91LZBok8pfJASi K9KxuXGjKXGltRDqDBdr MDhcdHJwYWRkZmwzXHRy cGFkZHIxMDhcdHJwYWRk ZnIzXHRycGFkZHQwXHRy eQVtLAP1R3r2mbYsVGNe MMf4huOhPSAgErFopKHf ACT5GEn5AyxwdlD0eQAu F1q5UektsuIzBLmcdUKr pt45UPNdgoKscHKgwLzn cHCyEJL4ZNKxXJEnJOAj UGM1CNOdYeYtiyTcPMdi bGJyZHJiXGJyZHJzXGJy JYS9DHZpDyBwdiEgGQcl bGJyZHJsXGJyZHJzXGJy AUR2SALmNxYgnxLmQOfv bGJyZHJyXGJyZHJzXGJy SIO0KUHaLsUxmzWjHSoq bHBhZHQxMFxjbHBhZGZ0 Y2sekLNwDOAfTJocxUJn HUBbM5pqnTOoRNtoSPBy cGFkZmwzXGNscGFkYjBc I4wkREVeBjOqL9HnxNh4 MDAwXGNsdmVydGFsdFxj dTQlXJA1FSIrPENnJNDj TZR7IHZcPxTghtNuRUek bGJyZHJiXGJyZHJzXGJy PYT2GKRrVoOswkUkPTco bGJyZHJsXGJyZHJzXGJy URW4FMNgPrImzxPnIGpf bGJyZHJyXGJyZHJzXGJy ZVW9XTEjXnFohrCfMZzz bHBhZHQxMFxjbHBhZGZ0 U3tfcCRkPDExDJmrbFIv EUZkE3hzwBCoMXkdBNEl cGFkZmwzXGNscGFkYjBc V1cpZOYuFwIiU1YcdHp9 NjAwXGNsdmVydGFsdFxj aJAoPUD8ZAGfBIKpXOQm URM5ZJDgDaOuvvXfQVoa bGJyZHJiXGJyZHJzXGJy WVN3IKWyNdSlujFdGAgx bGJyZHJsXGJyZHJzXGJy BJO1XWUbCeLtfyAqFZaz bGJyZHJyXGJyZHJzXGJy ISS7HVSzSdXzeuYjMYru bHBhZHQxMFxjbHBhZGZ0 V9velPHhWKEtVDgpeYJo BNSzQ9jnlIMiMMpmTYQl cGFkZmwzXGNscGFkYjBc B4vpQDZiOxAvW2KfkPk2 BcVmFZBpnlJnbO50Nzmd c0NpJLLdFYL4HDjpOTlz bFxwbGFpblxmMFxmczI0 XHBsYWluXGYxXGZzMjBc bGFuZzEwMzNcaGljaFxm HWkwKlMjAFTmERnrH1ci UjYxK7GsJCXqVgHqQE3t T4EwTdUiZbo1UZwgUFY2 SIVTTEPaCZMCX1YDWkbs QUGZN5SttSzlsG5tBoMm HiYiWKsoKE1jZFUoU9ic dDOxIHOnAFAdH9xfYqVu kF7hfZesYXiqPdLqGsOi MFxsdHJjaFxjZWxsXHBh opRdoP40Hlrtp1ZuJARb HVE9TIjqZKudlVbkzEDb yxudTSbjbmM3OEAoNAzs XGYxXGZzMjBcbGFuZzEw MzNcaGljaFxmMVxkYmNo DWJvPDowT2uhTpIjF9Nc OFWoCsObNIFfHt6bKWSp XHBsYWluXGYxXGZzMjBc bGFuZzEwMzNcaGljaFxm KEgcZyYvCFWaXExmY0jy GmQcC5KdBFAxKnZwcXBe U1mjL4GheWgcTDZdPOkh dTCpYHNngTWcOHF9iZLe miHosNvzgMaojA2aIqFt ZnMyNFxwbGFpblxmMVxm czIwXGxhbmcxMDMzXGhp F3vlFfNaUAWafBqxNEcs l9EhHSZbTMYjYkutqeYb IDUvMTEvMjAyMlxwbGFp blxmMVxmczIwXGxhbmcx KHYfSUdbS5vxYlZtJOGj nLgePZibz7BjCUKgEOUl DpkmxdBhQKb9wjNzKDLb iXbqrH82Cmcjsb64LQTw umNcq0ZnYOWqDHO7HFrn MFxxbFxwbGFpblxmMFxm veP8BYFgTNyzBUWdULRu MjBcbGFuZzEwMzNcaGlj aFxmMVxkYmNoXGYxXGxv B1hyBsWeGcFiCJgtTVP0 Addendum 1 (test code = p2vjxSShEAXzbVI0AkQq 37) LOWtx5mln6PhuGZurRJw BFmywEEvjaTlpy83jJL2 vD32LM8yZWTaMyZ7OVAi joT0Ndr4ENIuDYVzrMYq L099b8iiz5rrboZqpML9 WOImQVSrO3QpJF4vBZUj zQZrD63kxZOnFPW4ZULt LKYeqLDpWSCkQAF1QKDp vZApS2tkRAYwRY4ootby QKijLYagHPRruFM1VORj kUXcT6ZkSVSzLHgwPFWa edd8WsLrUo4skCTsoCwy MFxwYXJkXHBsYWluXGZz CaRsK3AbTT61oVKiJIKe UYYDTDCyAMA7JZv5ICBc INMXMsykBKXFCY4EI1Ij XBMbIPFKUPEpk9peQDX3 TYRky03nJMXxVr4zGLVs KTpccGFyXGNmMFxwYXJc uNu7MgIjxSreQjTmUHYq FHGPsJMudcthco2vwGpi pnxtu5ApP9EdZuilyGT5 IHgyOlxwYXJcbGkyMTYw ZMUeLKxbNIajlN8nNSTm IEJpbGUgZHVjdCBhZGVu y56fqjofXQ3hQKFtmgKn HI9qELFkJODihyXWelCi XPllB61tadI3BVxmOF95 aWZpZWQuXHBhclxwYXJc cGFyZFxwYXJ9 Diagnosis (test code = d3jatVFvQHTckWP0GbWk 34) CHLav5slo5PbvVNhlAKo LBgoiRNkocSxlk86aAP6 hH61DC3hGKBoMmE8PIHr moZ9Bkj0IZCaVFRasLYs R773l4gjz7pogkAsoBS0 BHSvZSAcZ1YwMJ7wDCFl bXKzO43emXRpEYO6AHHh UAThhJTxYYQqSJJ6ULFb qUEbT3miNUKeQQ3evbiw XDurXNokZEGmgJY3COPc mHUuD9GrSYIlGZapONLn ifo6GtZvAx7nxWAifVsj MFxwYXJkXHBsYWluXGZz PdByW1MwJR16jQHfQVYo ITMBVGVoAOE3FEf6LWEv EGICOcbbAWHVTK7ON1Nm YKYoENXXIDPvc1fqQBJ9 HFNof71cNPRkKp6rCHIm KTpccGFyXGNmMFxwYXJc oBi7KfExxXzwPxIzCJDv RFrdddWwaM0yr1m7oGEh AVNbpgByulsvUR0xz8Dv VCWiM71dbkJzfQOwXDHo R5Yvm919BYWuvvsqpBVr NjBcZmktNzIwXGxpbjIx KoSxNxWqiIilLOF0ff6f XAmhJsezqp9alSRdoPkd bGluaXphdGlvbiBhbmQg sfOmU2MfWLCiaSZzpKyg ZXJhdGlvbiBpbnZvbHZp qwnakHOiLQ18TEClWjTz GJCxHD1hHESze6BfDDNx rd0bEK1nVRSlJLOtr88b ID26MFSfLMpdUADuQUQp d4Tah3g3LPTdVvNlS52l KFBlciBvdXRzaWRlIHJl xP6xvEykpDRdCQ5sVNUt qA4laUQno0JjGDQowcI3 uT2vdjEorbUjHW12SXym LzEpLlxwYXIgUmVzZWN0 rP0nZK2owlxixqXoWHTk AGFvd7TzuYBqo7HpLTSt zfRGfmLlpJYka2BhiATy r79mtPhjOy90YSkhpBLg v8BsBaigDFBraWDnZVoo AjEuVMJfUFkzgX69OtHb Au1uBYAiJE83LBN9HVTr bX5mu3i0BFJdcfj5BWTm SHlhbGluaXplZCBzdHJv jMCpMEChx4cwViQhFVPl r91iWSbgJIYwV58qzLJh dCAjMilccGFyXHBhciBD MoVGnHZdacjwvb9fpSnf azzar3HkU1FvAinsuML2 IHgyOlxwYXJcdGFiIFRv YZTwPNRfP77sIBSywUBe QukyB1sweNS9oX3pr9j3 WPgrpSZyr4Yst1PpCYXq ZBGnNEKeLOTqgP8fsPyl XHBhclxwYXJccGFyXHBh cmRccGFyfQ== Comment (test code = q2qccECsLGOjbHP4ZtZs 9835) YBOjz8glq7ExrUUbqDSc NPgesYFwaoEsml26wEO0 oP50NE2dSYJxGhW7EVKo bvP9Qhc2SNTfKCMefNPb O300x9wqv9fbeuJkzYH5 iWbzFHTyrixoUyM8LJde WJGbsvjvPIo8QCewYMGm xZH3BWOpgMXgC4EhUULb HT3qjst9IQS1CNdmWHDe SpZ6LAQqcBLbCPSkeLdz MGefw488HMQ2LjKbYKPe fvSivScjwS4xEqVnUOOn UHtQkZTnhWN3FTCjiI7n eP3jsBpdbA3ozJPcwCFq rMYgaDKdrmLwc8cyuwX0 nTK7TTAaUMDqoECasLMn IGNvbXBvbmVudCBpcyBu HVjmxGm6CBDno5YxEiM0 IO0iQGXcwdshTJcoqUMc FISiWLX3dWKln0Aer40c QPBOOfqoQXAJNGK9ZJUt YBEjfD1yBCOqu735iTKs aKMfaUQbYYI3aT2hFACR SzEsIFNPWDEwLCBmYWN0 c7YxDpqZNDRfCYTlebZj H0VnHsLkSNPIFCA5ORfi L6keaKveaAHxalGdY9Lt DTBgV4mybd5siQMmGYQm jZRtOEBiimGCsYDbf0Hi arGmvOMrfD3poR3cqvLh lnVcbVdus8Eny9ZvEBEl XQ1lS55bwPExQ2Odoykq ZoN3GIo6YTjgPVEqSBmk BM9kcF5bXIUxWSBsCEUn tOY5IaIRzGIdGYlkNrKk ZP84vGBfDVXeMRrxf6Ik cyBpbmNsdWRlcyBhIHJl NRA8vEXjXJ3yPNXqghas vkWzcEVwj0UcEYV4kUZb lBQzT5WpwlPrqdItCWLd LQ5jB06yveVnY0AiRCJh oTDtcZ9dDCW1O8ltEXSl PM2lFLY3UZWum3Ykym05 buMqKVpxc6RuZYXsw82b WeDnJX8fbudqc82jBEfx vYzxvlBrB1ArxjGgZ5mf wiabzu2pDECzwlwzQOXw YqD4KNS7Uw7qzCTxYTFr oR51jp4tqGS6l8RrQF4u E8FvNWM5EZmdXYLuaeAY o19hahLfQFWyqPXlfzJc MYBsnlAjFc9nGCKxdCsv zQHbBXCgn0EvuHsrhr5z cGFyXHBhclxwYXJ9 Disclaimer (test code = s2fknOSfOFSrbCXpObWf 9828) IVFrMWExs0jnJGRzvRFg ZzEwMzNcZnRuYmpcdWMx TTDgVjIvv8xzs222mGIw l3oqZTYeCnR2vZCfROCx iPNdY398AAPtNKygh9yh f8BmAPWooCMmp9X2PYVV ynbrtYy7cVynQ31ad4C6 EmzvX0wwWGLwWXZpI9Sj KG6wSKZpZvp5NJY9DNA5 RVRpIHQqO8UnJN8xNMLj nXFrXWv8s2endHrgNMVa UYE0m8meXBisdfVsWP9u pg3rkGv6e0xweeWxHRZq IUTclEHZTTAmA7VraJsx Gn9mrGv1eAuyFspbBRQ2 Jog8SG5hun60dcp8dOsz YMBdrkidMtO0UWzlTPHm dxhwZXv6BEdnERNnkDD7 JGUqfIZgR6GbKYXiQF5d bcl2KNL1NAryKIMcWpY7 NDBcaGVhZGVyeTcyMFxm n788JHA8YgTxVJ5dE6Ma n0R1aN6pwBTjYNFemUGj ZuPbUSKqpl6pmESmAWzn y4DoFGQ1aaH4iIEakZFd VVHiJF44Ritsb3UsKkyv YJP8EIIewwUhs5Xdm2fb KkJnmtCuR8gdK3RgTXEv SXKtATLjGaIbjtOdi0Ov v7FomKJobWz0c9uzBQBz YQQvtVcfl1uvFEF4WQSd F0L4uHPbs6yoZEjiHEEu oZN6gtM1WYAufNUpM3Ax aG6kKMDmXJ5atsc0f8ee UZF8DPaqXKBaEzU1wsE7 NDBcaGVhZGVyeTcyMFxm c933XGL3AfXzRCGza4Py L1RhsHhmE79zsAgfN45b WJIhyApfoU2guPutlY7n ZjBcZnMyNFxxbFxwbGFp gcwaJEeqjdO3DJpisali CBYsHJqxD3ctSjInNVYk uYtqSBpcv0LvIBVpLMGx SiwnawC6FHGYe97gWPOm w4BoXBXqcZ3cfPSkHCfz unMuaSR5BLcydwAlQnTh npZrXBZczE0qSTCxXE5c CVElnlFksk5ktpQkZIAe YMTnQ5PuslcqsKhtcuZp NHLvxz4kknQpUGU2EHSM ES7QFLZbOUVjl41iFZNj fPdhzY6sfDDmkoTrFOFg m2NpbV0lbSSDTEMcD1el RZ6jQQnuu9DalOJacRJc kTK1SRZvp2RzScUtohGg cLOzeESlF0GceIitC3cp OZPbKPJbzpYroBCii4Hf SOVskYT9nUYsJB2ZZsWU p59gBVPwAYSXtiVsGIPh uWnccMK4pjE2pI9vBhUU ZiBhcHBsaWNhYmxlLCBj i106uu5quvL2CCInRCPg mxifw4ThBDBeWHHvxZ91 EFJvAMQrav1nbqhnaTPg amMqT1Ttpik8hL0kJMJo YWluXGYxXGZzMjJcbGFu ZzEwMzNcaGljaFxmMVxk VxJdOVCxBUeyK5fvNeIy ZnMyMlxwYXJ9 [facility] residual 2021-12-23 17:15:00 Test Item Value Reference Range Interpretation Comments Total volume (test code = 2336) 0ml [facility] urinalysis [id number] 17:14:00 Test Item Value Reference Range Interpretation Comments Color urine, POC (test Yellow code = 1006566) Clarity urine, POC Clear (test code = 2479565) Glucose urine, POC Negative Negative (test code = 5687279) Bilirubin urine, POC Negative Negative (test code = 8995164) Ketones urine, POC Negative Negative (test code = 9994125) Specific gravity urine, 1.005-1.030 POC (test code = 9137233) Blood urine, POC (test Negative Negative code = 9763552) pH urine, POC (test See_Comment [Automa davion message] code = 2672865) The system w hich generated this result transmitted ref erence range: 5.0, 5.5 , 6.0, 6.5, 7.0, 7.5, 8.0, 8.5. The refere nce range was not u sed to interpret this result as normal/abnor mal. Protein urine, POC Negative Negative (test code = 8043530) Urobilinogen urine, POC <2.0 See_Comment [Au tomated message] (test code = 2061870) The sy stem which generated this result transmitted ref erence range: <=2.0. T he reference range was not used to int erpret this result as normal/abnormal . Nitrite urine, POC Negative Negative (test code = 3914119) Leukocyte esterase Negative Negative urine, POC (test code = 7520293) [facility] MOLECULAR [id number] 22:32:52 Test Item Value Reference Range Interpretation Comments POCT Molecular FluA (test code = Negative Negative 80918-5) POCT Molecular FluB (test code = Negative Negative 39984-3) Lab Interpretation (test code = Normal 15232-8) [facility] MOLECULAR [id number] 22:26:40 Test Item Value Reference Range Interpretation Comments POCT Molecular Strep (test code = Negative Negative 17807-6) Lab Interpretation (test code = Normal 67927-3) [facility] [id number] 00:06:50 Test Item Value Reference Range Interpretation Comments Urine culture (test SEE COMMENT Bacteriu jaocbo screen code = 8621654) negative[facility] [Presence] in Respiratory specimen by ADELAIDA with probe [id number] 21:35:28 Test Item Value Reference Range Interpretation Comments SARS-CoV-2 (COVID-19) RNA Not detected Not-Detected [Presence] in Respiratory specimen by ADELAIDA with probe detection (test code = 48331-4) Whether patient is employed in a healthcare setting (test code = 99967-3) Whether the patient has symptoms related to condition of interest (test code = 82786-4) Patient was hospitalized because of this condition (test code = 38365-3) Whether the patient was admitted to intensive care unit (ICU) for condition of interest (test code = 34627-8) Whether patient resides in a congregate care setting (test code = 80627-8) Surgical pathology [id number] 20:28:41 Test Item Value Reference Range Interpretation Comments Case number (test code = [id number]) Surgical pathology See link below for report (test code = PDF Lab Report 7176) Result status (test code This is Final Report = [id number]) for [id number] [facility] 12 [id number] 11:42:29 Test Item Value Reference Range Interpretation Comments Ventricular rate (test code = 253) Atrial rate (test code = 255) WA interval (test code = 266) QRSD interval (test code = 260) QT interval (test code = 264) QTC interval (test code = 265) P axis 1 (test code = 267) QRS axis 1 (test code = 268) T wave axis (test code = 270) EKG impression (test code Sinus = 273) tachycardia-Possible Left atrial enlargement-Electron ically Signed By Jose Ferrer MD ([id number]) on 08/24/2021 6:42:27 AM [facility] [id number] 18:03:01 Test Item Value Reference Range Interpretation Comments POC glucose (test code 175 mg/dL 65-99 [facility] Name: = [id number]) Morton Dann ID: [id number] able: [facility] Notified rod cup filler Interpretation Abnormal (test code = 76272-3) [facility] [id number] 10:26:00 Test Item Value Reference Range Interpretation Comments ABO grouping (test code = 883-9) A Rh type (test code = 59717-2) POS Antibody screen (gel) (test code = NEG 890-4) [facility] [Presence] in Respiratory specimen by ADELAIDA with probe [id number] 07:00:55 Test Item Value Reference Range Interpretation Comments SARS-CoV-2 (COVID-19) RNA Not detected Not-Detected [Presence] in Respiratory specimen by ADELAIDA with probe detection (test code = 53081-6) Whether patient is employed in a healthcare setting (test code = 91384-6) Whether the patient has symptoms related to condition of interest (test code = 00673-2) Patient was hospitalized because of this condition (test code = 47051-0) Whether the patient was admitted to intensive care unit (ICU) for condition of interest (test code = 64218-2) Whether patient resides in a congregate care setting (test code = 79712-4) SARS-CoV-2 (COVID-19) RNA [Presence] in Respiratory specimen by ADELAIDA with probe [id number] 14:44:09 Test Item Value Reference Range Interpretation Comments SARS-CoV-2 (COVID-19) RNA Not detected Not-Detected [Presence] in Respiratory specimen by ADELAIDA with probe detection (test code = 72970-0)
--- NOTE | 2022-07-09 22:29 | ER ---
Nurse's Notes [facility] Name: Adelita Lemons Age: 61 yrs Sex: Female : 1960 Arrival Date: 07/09/2022 Time: 21:55 Bed 19 Private MD: Diagnosis: Lumbago with sciatica, right side;Muscle spasm of back Presentation: 07/09 22:21 Chief complaint: Patient states: severe right hip pain down to my leg, nothing is kd3 relieving the pain. Coronavirus screen: Vaccine status: Patient reports receiving the 2nd dose of the covid vaccine. Ebola Screen: No symptoms or risks identified at this time. Initial Sepsis Screen: Does the patient meet any 2 criteria? No. Patient's initial sepsis screen is negative. Does the patient have a suspected source of infection? No. Patient's initial sepsis screen is negative. Risk Assessment: Do you want to hurt yourself or someone else? Patient reports no desire to harm self or others. Onset of symptoms was July 09, 2022. 22:21 Method Of Arrival: Wheelchair kd3 22:21 Acuity: CRISTAL 3 kd3 Triage Assessment: 22:23 General: Appears distressed, uncomfortable, Behavior is cooperative, crying, restless. kd3 Pain: Complains of pain in right hip and right leg Pain currently is 10 out of 10 on a pain scale. Is continuous. Historical: - Allergies: 22:23 Amoxicillin; kd3 22:23 Bactrim; kd3 22:23 morphine-vomiting; kd3 - PMHx: 22:23 GERD; Hypertension; kd3 - PSHx: 22:23 Appendectomy; Cholecystectomy; Fibrous mass removed from abd; hysterectomy; L knee kd3 replacement; R hip replacement; right rotator cuff; - Immunization history:: Client reports receiving the 2nd dose of the Covid vaccine. - Social history:: Smoking status: Patient denies any tobacco usage or history of. Screenin:21 Abuse screen: Denies threats or abuse. Nutritional screening: No deficits noted. jb4 Tuberculosis screening: No symptoms or risk factors identified. Fall Risk None identified. Assessment: 22:21 General: Appears in no apparent distress. comfortable, Behavior is calm, cooperative, jb4 appropriate for age. Pain: Complains of pain in right hip Pain radiates to lumbar area and right leg Pain currently is 10 out of 10 on a pain scale. Neuro: Level of Consciousness is awake, alert, obeys commands, Oriented to person, place, time, situation. Cardiovascular: Patient's skin is warm and dry. Respiratory: Airway is patent Respiratory effort is even, unlabored, Respiratory pattern is regular, symmetrical. Derm: Skin is intact, Skin is pink, warm \T\ dry. 23:25 Reassessment: Patient appears in no apparent distress at this time. Patient and/or jb4 family updated on plan of care and expected duration. Pain level reassessed. Patient is alert, oriented x 3, equal unlabored respirations, skin warm/dry/pink. Appears to be resting more comfortably in bed, no longer crying. Patient states feeling better. Patient states symptoms have improved. Vital Signs: 22:21 Pulse 78; Resp 16 S; Temp 98.8(O); Pulse Ox 100% on R/A; Weight 97.07 kg; Height 6 ft. kd3 0 in. (182.88 cm); Pain 10/10; 23:12 BP 154 / 94; Pulse 71; Resp 16; Pulse Ox 95% on R/A; jb4 22:21 Body Mass Index 29.02 (97.07 kg, 182.88 cm) kd3 ED Course: 21:55 Patient arrived in ED. bp1 22:02 Sahra Jeffries [facility]-C [facility] snw 22:02 aRdames Phillips MD is Attending Physician. snw 22:15 Duong Cline, RN is Primary Nurse. jb4 22:21 Patient has correct armband on for positive identification. Bed in low position. Call jb4 light in reach. Side rails up X 1. Client placed on continuous cardiac and pulse oximetry monitoring. NIBP monitoring applied. 22:23 Triage completed. kd3 23:12 No provider procedures requiring assistance completed. Patient did not have IV access jb4 during this emergency room visit. Administered Medications: 22:44 Drug: Valium (diazepam) 10 mg Route: PO; jb4 23:27 Follow up: Response: No adverse reaction; Marked relief of symptoms; Pain is decreased jb4 22:45 Drug: Phenergan (promethazine) 25 mg Route: IM; Site: right gluteus; jb4 23:27 Follow up: Response: No adverse reaction jb4 Medication: 22:21 VIS not applicable for this client. jb4 Outcome: 22:28 Discharge ordered by . donald 23:27 Discharged to home ambulatory. jb4 23:27 Condition: stable 23:27 Discharge instructions given to patient, family, Instructed on discharge instructions, follow up and referral plans. medication usage, Demonstrated understanding of instructions, follow-up care, medications, Prescriptions given X 1. 23:27 Patient left the ED. jb4 Signatures: Sahra Jeffries, QUAD STAYER-C QUAD STAYER-Csnw Duong Cline RN RN jb4 Opal Abreu Kyli RN RN kd3 Corrections: (The following items were deleted from the chart) 23:27 23:25 Reassessment: Patient appears in no apparent distress at this time. Patient jb4 and/or family updated on plan of care and expected duration. Pain level reassessed. Patient is alert, oriented x 3, equal unlabored respirations, skin warm/dry/pink. jb4
--- NOTE | 2022-07-09 22:29 | EDPHYS ---
Physician Documentation [facility] Name: Adelita Lemons Age: 61 yrs Sex: Female : 1960 Arrival Date: 07/09/2022 Time: 21:55 Bed 19 Private MD: ED Physician Radames Phillips HPI: 07/09 22:49 This 61 yrs old Female presents to ER via Wheelchair with complaints of Hip Pain. snw 22:49 The patient presents with pain that is chronic, and spasm, stiffness, tightness. The snw symptoms are located in the low back. The pain radiates to the right hip and right leg. The problem was sustained from a chronic condition, the patient has known disc disease. Modifying factors: the patient symptoms are aggravated by movement, positioning in shoulder immobilizer. The patient or guardian reports pain. Associated signs and symptoms: Loss of consciousness: the patient experienced no loss of consciousness. The patient has experienced similar episodes in the past. The patient has been recently seen at the [facility] Emergency Department, this week, for similar complaints. Pt sees Dr. Parks, has Dilaudid, Hydrocodone, Neurontin at home. . Historical: - Allergies: 22:23 Amoxicillin; kd3 22:23 Bactrim; kd3 22:23 morphine-vomiting; kd3 - PMHx: 22:23 GERD; Hypertension; kd3 - PSHx: 22:23 Appendectomy; Cholecystectomy; Fibrous mass removed from abd; hysterectomy; L knee kd3 replacement; R hip replacement; right rotator cuff; - Immunization history:: Client reports receiving the 2nd dose of the Covid vaccine. - Social history:: Smoking status: Patient denies any tobacco usage or history of. ROS: 22:51 Constitutional: Negative for fever, chills, and weight loss, Eyes: Negative for injury, snw pain, redness, and discharge, ENT: Negative for injury, pain, and discharge, Neck: Negative for injury, pain, and swelling, Cardiovascular: Negative for chest pain, palpitations, and edema, Respiratory: Negative for shortness of breath, cough, wheezing, and pleuritic chest pain, Abdomen/GI: Negative for abdominal pain, nausea, vomiting, diarrhea, and constipation, Back: Negative for injury and pain, : Negative for injury, bleeding, discharge, and swelling, Skin: Negative for injury, rash, and discoloration, Neuro: Negative for headache, weakness, numbness, tingling, and seizure, Psych: Negative for depression, anxiety, suicide ideation, homicidal ideation, and hallucinations. 22:51 MS/extremity: Positive for pain, of the right hip and right leg. Exam: 22:47 Constitutional: This is a well developed, well nourished patient who is awake, alert, snw and in no acute distress. Head/Face: Normocephalic, atraumatic. Eyes: Pupils equal round and reactive to light, extra-ocular motions intact. Lids and lashes normal. Conjunctiva and sclera are non-icteric and not injected. Cornea within normal limits. Periorbital areas with no swelling, redness, or edema. ENT: Nares patent. No nasal discharge, no septal abnormalities noted. Tympanic membranes are normal and external auditory canals are clear. Oropharynx with no redness, swelling, or masses, exudates, or evidence of obstruction, uvula midline. Mucous membranes moist. Neck: Trachea midline, no thyromegaly or masses palpated, and no cervical lymphadenopathy. Supple, full range of motion without nuchal rigidity, or vertebral point tenderness. No Meningismus. Chest/axilla: Normal chest wall appearance and motion. Nontender with no deformity. No lesions are appreciated. Cardiovascular: Regular rate and rhythm with a normal S1 and S2. No gallops, murmurs, or rubs. Normal PMI, no JVD. No pulse deficits. Respiratory: Lungs have equal breath sounds bilaterally, clear to auscultation and percussion. No rales, rhonchi or wheezes noted. No increased work of breathing, no retractions or nasal flaring. Abdomen/GI: Soft, non-tender, with normal bowel sounds. No distension or tympany. No guarding or rebound. No evidence of tenderness throughout. Skin: Warm, dry with normal turgor. Normal color with no rashes, no lesions, and no evidence of cellulitis. Neuro: Awake and alert, GCS 15, oriented to person, place, time, and situation. Cranial nerves II-XII grossly intact. Motor strength 5/5 in all extremities. Sensory grossly intact. Cerebellar exam normal. Normal gait. 22:47 Musculoskeletal/extremity: Extremities: noted in the recent right shoulder surgery, c/o right hip pain : Circulation is intact in all extremities. Sensation intact. spasmodic pain down right leg Vital Signs: 22:21 Pulse 78; Resp 16 S; Temp 98.8(O); Pulse Ox 100% on R/A; Weight 97.07 kg; Height 6 ft. kd3 0 in. (182.88 cm); Pain 10/10; 23:12 BP 154 / 94; Pulse 71; Resp 16; Pulse Ox 95% on R/A; jb4 22:21 Body Mass Index 29.02 (97.07 kg, 182.88 cm) kd3 MDM: 22:20 Patient medically screened. snw 22:49 Data reviewed: vital signs, nurses notes. Data interpreted: Pulse oximetry: on room air snw is 100 %. Interpretation: normal. Counseling: I had a detailed discussion with the patient and/or guardian regarding: the historical points, exam findings, and any diagnostic results supporting the discharge/admit diagnosis, the need for outpatient follow up, to return to the emergency department if symptoms worsen or persist or if there are any questions or concerns that arise at home. Response to treatment: the patient's symptoms have mildly improved after treatment. Special discussion: Based on the history and exam findings, there is no indication for further emergent testing or inpatient evaluation. I discussed with the patient/guardian the need to see the orthopedic surgeon for further evaluation of the symptoms. I discussed with the patient/guardian the need to see the painter supervisor for further evaluation of the symptoms. I discussed with the patient/guardian the need to see the primary care provider for further evaluation of the symptoms. Administered Medications: 22:44 Drug: Valium (diazepam) 10 mg Route: PO; jb4 23:27 Follow up: Response: No adverse reaction; Marked relief of symptoms; Pain is decreased jb4 22:45 Drug: Phenergan (promethazine) 25 mg Route: IM; Site: right gluteus; jb4 23:27 Follow up: Response: No adverse reaction jb4 Disposition Summary: 07/09/22 22:28 Discharge Ordered Location: Home snw Condition: Stable snw Diagnosis - Lumbago with sciatica, right side snw - Muscle spasm of back snw Followup: snw - With: Emergency Department - When: As needed - Reason: Worsening of condition Followup: snw - With: Private Physician - When: 2 - 3 days - Reason: Recheck today's complaints, Continuance of care, Re-evaluation by your physician Discharge Instructions: - Discharge Summary Sheet snw - Chronic Back Pain snw - Muscle Cramps and Spasms snw - Sciatica snw - Heat Therapy snw - Radicular Pain snw Forms: - Medication Reconciliation Form snw - Thank You Letter snw - Antibiotic Education snw - Prescription Opioid Use snw Prescriptions: - orphenadrine citrate 100 mg Oral Tablet Sustained Release - take 1 tablet by ORAL route 2 times per day As needed; 20 tablet; Refills: 0, snw Product Selection Permitted Signatures: Sahra Jeffries, CASKET UPHOLSTERER-C CASKET UPHOLSTERER-Csnw Duong Cline, RN RN jb4 Andie Angel RN RN kd3
[2022-07-09] MEDS ORDERED: PROMETHAZINE INJ 25 MG/ML AMP ONE (22:44)
[2022-07-09] MEDS ORDERED: DIAZEPAM 5 MG TABLET ONE (22:45)
[2022-07-10 02:17] VITALS: TEMP 98.8
[2022-07-10 02:20] VITALS: BP 154/94; O2SAT 95
== END 2022-07-09 23:27 | disposition home or self-care (01) ==
LOC: ER 21:51
DX: M54.41 Lumbago with sciatica, right side (principal); M62.830 Muscle spasm of back; Z96.652 Presence of left artificial knee joint; Z96.641 Presence of right artificial hip joint; I10 Essential (primary) hypertension; Z88.1 Allergy status to other antibiotic agents; Z88.5 Allergy status to narcotic agent
CPT/HCPCS: 96372; 99283; J2550

== ENCOUNTER 2022-07-22 22:30 | Emergency (ER) | payer OTHER ==
--- OUTSIDE RECORDS SUMMARY | 2022-07-22 22:33 | XMS REPORT | Clinical Summary ---
:1960 Author Organization [facility] Address [address] [place] [address] Care Team Providers Name Role Phone Madison Manning Unavailable Allergies Not on File Medications Not on file Active Problems Not on file Encounters Date Type Specialty Care Team Description 05/25/2022 Ancillary Procedure Radiology Cancer 03/30/2022 Ancillary Procedure Radiology Cancer 03/30/2022 Ancillary Procedure Radiology Cancer 03/25/2022 Lab Requisition Liban Javed MD Divatia, Mukul K, MD after 07/22/2021 Social History Tobacco Use Types Packs/Day Years [...] Cancer Resul ts for this PELVIS PM AGRIC[employer]URAL REAL [employer]STATE AGENT procedure are i n the results section. OSI CHEST Routine 08/22/2021 12:46 Cancer Results for this PM CDT procedure are i n the results section. PATHOLOGY OUTSIDE Routine 08/21/2021 Results fo r this INTERPRETATION procedure are in the results section. OSI ABDOMEN Routine 08/19/2021 12:47 Cancer Results for this PM CDT procedure are i n the results section. after 07/22/[address] Abdomen and Pelvis (12/29/2021 11:35 PM A[employer] AGENT) Specimen (Source) Anatomical Location Collection Method / [...] Accession#, Stained, Block, Unstained Collected Received 03/26/2022 [facility] Received A. [id number], 38 SS, 0 BLOCKS, 0 USS 08/21/2021 03/25/2022 6:58 PM CDT Addendum 1 Outside ([id number], 38 SS, 0 BLOCKS, 0 USS, collected on 08/21/2021): 03/26/2022 [facility] Addendum 6:58 PM electronic ally C. 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 No malignancy identified. MD Paty on 03/26/2022 at 6:58 PM Diagnosis Outside ([id number], 38 SS, 0 BLOCKS, 0 USS, collected on 08/21/2021): 03/26/2022 [facility] Electronically 6:58 PM signed [...] and CD163. CD34 highlights vascular channels. 03/26/2022 [facility] 6:58 PM The overall [...] amyloid deposition. Disclaimer "Some tests reported 03/26/2022 [facility] here may have been 6:58 PM developed and CDT performance characteristics determined by [facility]. These tests have [...] Organization Address City/State/ZIP Code Phon e Number [facility] [place] [address] [id number] OSI Abdomen (08/19/2021 12:47 PM CDT) Specimen (Source) Anatomical Location Collection Method / Collectio n Time Received Time / Laterality Volume Narrative Systemgenerated, Documentation - 022 12:47 PM CDT Study acquired at another institution. For comparison only. No Alan originated interpretation requested or a vailable. Candida Fajardo MD IMG OUTSIDE IMAGE ORDERABLES after 07/22/2021 Insurance Payer Benefit Plan / Subscriber ID Effective Dates Phone Addre ss Type Group [employer] MANAGED A[employer] O [id number] 2014-Present [address] X [id number] [facility] [place] [address] Care Teams Inner Tube Cutter Relationship Specialty Start Date End Date Madison Manning PCP - External Follow Up A 03/19/22
--- OUTSIDE RECORDS SUMMARY | 2022-07-22 22:35 | XMS REPORT | Continuity of Care Document ---
:1960 Author Organization [facility] t Address [address] [place] [address] Care Team Providers Name Role Phone Carey Spicer MD Primary Care Physician SYSTEM, PROVIDER NOT IN Attending Clinician Unavailable LISSY WILSON Attending Clinician Unavailable MARIAN CUTLER Attending Clinician Unavailable Carlos ADAM, Joie Katz Attending Clinician Sandor NUNN, Alfred Espinoza Attending Clinician [phone] Nicko Palacios MD Attending Clinician Shelly Ayala RN Attending Clinician Unavailable Liban Javed MD Attending Clinician Jed Reardon MD Attending Clinician Unavailable GC_TNC_Lovitt_S Attending Clinician Unavailable Renu ADAM, Candelaria Love Attending Clinician [phone] Trudy Vernno RN Attending Clinician Unavailable SLY ARREDONDO III Attending Clinician Unavailable King COTY MD, Sly Fragoso Attending Clinician Christie Mehta Attending Clinician Simone ADAM, Sommer Donovan Attending Clinician [phone] Edmund Galindo NP, Mel Sytles Attending Clinician Kylie SAUCEDA, Staci Attending Clinician Unavailable MD CANDELARIA SEARS Attending Clinician Unavailable Irene Rose MA Attending Clinician Unavailable Scotty ADAM, Candida Attending Clinician Rm Medina MD Attending Clinician Brian ADAM, Jhoan Santos Attending Clinician [phone] Mary Lou6 Russell ADAM, James Cruz Attending Clinician MD CANDIDA OLIVAREZ Attending Clinician Unavailable Kaylah An RN Attending Clinician Unavailable CHU MENA Attending Clinician Unavailable MD CHU MENA Attending Clinician Unavailable JACQUI MENESES Attending Clinician Unavailable KATEY MITCHELL Attending Clinician Unavailable Pcp, Patient Does Not Have A Attending Clinician [phone] Lab, Adc Fam Pob I Attending Clinician Unavailable Doctor Unassigned, [place] Attending Clinician Unavailable BROWN DUNLAP Attending Clinician Unavailable KORY CERVANTES Attending Clinician Unavailable NEHEMIAS SANDOVAL Attending Clinician Unavailable CAREY SPICER M.D. Attending Clinician Unavailable GC_TNC_Lovitt_S Admitting Clinician Unavailable CANDELARIA SEARS Admitting Clinician Unavailable EDOUARD AVILA Admitting Clinician Unavailable CANDIDA OLIVAREZ Admitting Clinician Unavailable MD CANDIDA OLIVAREZ Admitting Clinician Unavailable CHU MENA Admitting Clinician Unavailable EDOUARD FREY Admitting Clinician Unavailable KORY CERVANTES Admitting Clinician Unavailable Payers Payer Name Policy Type Policy Number Effective Date Expiration Date S loreta AET[employer] CHOICE POS [id number] 2013 00:00:00 II AETNA (POS) [id number] 2013 00:00:00 Problems Condition Condition Condition Status [...] Added automatic ally from request for surgery [id number] Small Small Disease Active 2020-11 Methodi bowel [...] rs active active ity of problems problems [facility] Sclerosing Sclerosing Disease Active M ethodi mesenterit [...] Hospita reaction 00 l s to drug morphine drug Active [facility] allergy Physici ans amoxicil drug Active [facility] maria eugenia allergy Physici ans Family History Family Member Diagnosis Comments Start Date Stop Date Source Natural brother Atrial fibrillation [facility] Natural father Heart failure [facility] Grandchild Crohn's disease [facility] Natural mother Alzheimer's disease [facility] Natural mother Dementia [facility] Natural sister [facility] Family member Celiac disease [facility] Family member Colon cancer [facility] Family member Esophageal cancer [facility] Family member Pancreatic cancer [facility] Family member Stomach cancer [facility] Social History Social Habit Start Date Stop Date Quantity Comments Source Exposure to Not sure University SARS-CoV-2 [place] [facility] (event) [facility] History SDOH [facility] Alcohol Binge History [facility] Health Alcohol Comment Alcohol intake 2022-06-03 2022-06-03 Current [facility] 00:00:00 00:00:00 non-drinker of Hospital alcohol (finding) History SDOH 2021-09-04 2021-09-04 1 [facility] Alcohol Frequency 00:00:00 00:00:00 Tobacco use and 2020-10-30 2020-10-30 Smokeless tobacco Me [facility]ist exposure 00:00:00 00:00:00 non-user Hospital Sex Assigned At [birth year] Universit y of 00:00:00 00:00:00 [place] [facility] Smoking Status Start Date Stop Date Source Unknown if ever smoked [facility] Never smoked tobacco [facility] Medications Ordered Filled Start Stop Current Ordering Indication Dosage Frequency Signature Comments Components Source Medication Medication Date Date Medication? Clinician (SIG) Name Name docusate Yes 3{capsu QD Take 3 Meth mirela sodium 8-10 le} capsules st (STOOL 14:15: by mouth Hospita SOFTENER 11 every l ORAL) evening. multivitami Yes 1{tbl} QD Take 1 Me thodi n with 8-[address] minerals 14:15: mouth Hospita tablet 11 daily. l glucosamine 2022-0 Yes 2{tbl} QD Take 2 Me thodi /chondroiti 8-[address] n/C/rosaura 14:15: mouth Hospita (GLUCOSAM 11 daily. l BLANCA DIP-CHONDRO IT-C-MN ORAL) cholecalcif 0 Yes 2{tbl} QD Take 2 Me thodi latha, 8-[address] vitamin D3, 14:15: mouth Hospi ta (VITAMIN D3 11 daily. l ORAL) 2,000 IU qd ferrous 0 Yes 1{tbl} Q.5D Take 1 Method i sulfate 8-[address] (IRON ORAL) 14:15: mouth 2 Hos bessy 11 (two) l times a day. polyethylen 2021-0 Yes 17g Q24H Take 17 g M ethodi e glycol 8-[address] (MIRALAX) 14:15: daily as [facility] 17 gram 11 needed. l packet cholecalcif 0 Yes 2{tbl} QD Take 2 Me thodi latha, 8-[address] vitamin D3, 14:15: mouth Hospi ta (VITAMIN D3 11 daily. l ORAL) 2,000 IU qd ferrous 0 Yes 1{tbl} Q.5D Take 1 Method i sulfate 8-[address] (IRON ORAL) 14:15: mouth 2 Hos bessy 11 (two) l times a day. polyethylen 2021-0 Yes 17g Q24H Take 17 g M ethodi e glycol 8-[address] (MIRALAX) 14:15: daily as [facility] 17 gram 11 needed. l packet docusate Yes 3{capsu QD Take 3 Meth mirela sodium 8-10 le} capsules st (STOOL 14:15: by mouth Hospita SOFTENER 11 every l ORAL) evening. multivitami 0 Yes 1{tbl} QD Take 1 Me thodi n with 8-[address] minerals 14:15: mouth Hospita tablet 11 daily. l glucosamine 2021-0 Yes 2{tbl} QD Take 2 Me thodi /chondroiti 8-[address] n/C/rosaura 14:15: mouth Hospita (GLUCOSAM 11 daily. l BLANCA DIP-CHONDRO IT-C-MN ORAL) diclofenac 0 Yes 75mg Q.5D Take 75 mg M ethodi (VOLTAREN) 7-[address] 75 MG EC 00:00: (two) Hospita tablet 00 times a l day. diclofenac 0 Yes 75mg Q.5D Take 75 mg M ethodi (VOLTAREN) 7-[address] 75 MG EC 00:00: (two) Hospita tablet 00 times a l day. benzonatate 0 Yes [id number] 100mg Take 1 Univers 100 mg 1-13 capsule by ity of capsule 00:00: mouth [place] 00 every 8 Medical (eight) Branch hours as needed for Cough. bromphenira 0 Yes [id number] 5mL Take 5 mL Univers mine-pseudo 1-13 by mouth 4 it y of ephedrine-D 00:00: (four) Aleksandra Escobar (BROMFED 00 times Medical DM) 2-30-10 daily as Bran ch mg/5 mL needed for syrup Congestion /Allergies . benzonatate 0 Yes [id number] 100mg Take 1 Univers 100 mg 1-13 capsule by ity of capsule 00:00: mouth [place] every 8 Medical (eight) Branch hours as needed for Cough. bromphenira 0 Yes [id number] 5mL Take 5 mL Univers mine-pseudo 1-13 by mouth 4 it y of ephedrine-D 00:00: (four) Aleksandra Escobar (BROMFED 00 times Medical DM) 2-30-10 daily as Bran ch mg/5 mL needed for syrup Congestion /Allergies . gabapentin 2020-11 Yes 1{capsu Q.[id number] Take 1 Methodi (NEURONTIN) 2-14 le} [id number] capsule by st 400 mg 00:00: 3D mouth 3 Hospita capsule 00 (three) l times a day. gabapentin 2020-11 Yes 1{capsu Q.[id number] Take 1 Methodi (NEURONTIN) 2-14 le} [id number] capsule by st 400 mg 00:00: 3D mouth 3 Hospita capsule 00 (three) l times a day. No known 2020-11 No No known [facility] medications 0-27 medication He alth 20:42: s 35 No known 2020-11 No No known UT medications 0-27 medication He alth 20:42: s 35 gabapentin 2020-11- No 300mg Q.[id number] Take 300 Methodi (NEURONTIN) 0-15 10-[id number] 300 mg 13:28: 00:00 3D mouth 3 Hospita capsule 05 :00 (three) l times a day. gabapentin 2020-11- No 300mg Q.[id number] Take 300 Methodi (NEURONTIN) 0-15 10-[id number] 300 mg 13:28: 00:00 3D mouth 3 Hospita capsule 05 :00 (three) l times a day. ibuprofen 2020-11 Yes 1{tbl} Q8H Take 1 Meth mirela (ADVIL) 600 0-[address] MG tablet 00:00: mouth Hospita 00 every 8 l (eight) hours as needed. Post-op medication ibuprofen 2020-11 Yes 1{tbl} Q8H Take 1 [...] (four) times a day for 30 days. gabapentin 2020-11 No 400mg Q8H Take 1 [...] times a day for 30 days. ibuprofen 2020-11 No [id number] 600mg Q6H Take 1 Methodi (ADVIL) 600 0-01 10-[address] MG tablet 00:00: 00:00 (600 mg [facility] 00 :00 total) by l mouth every 6 (six) hours as needed for mild pain (postopera tive pain) for up to 30 days. ibuprofen 2020-11 No [id number] 600mg Q6H Take 1 Methodi (ADVIL) 600 0-01 10-[address] MG tablet 00:00: 00:00 (600 mg [facility] 00 :00 total) by l mouth every 6 (six) hours as needed for mild pain (postopera tive pain) for up to 30 days. estradioL Yes Follow Method i (Estrace) 8- office st 0.01 % (0.1 00:00: instructio Hospita mg/gram) 00 ns. Insert l vaginal one finger cream tip unit into vagina nightly x 2wks; after two weeks use 3x weekly at night estradioL Yes Follow Method i (Estrace) 8-[address] 0.01 % (0.1 00:00: instructio Hospita mg/gram) 00 ns. Insert l vaginal one finger cream tip unit into vagina nightly x 2wks; after two weeks use 3x weekly at night cyclobenzap Yes TAKE ONE M ethodi rine 1-04 (1) st (FLEXERIL) 00:00: TABLET(S) Ho spita 10 mg 00 BY MOUTH l tablet THREE TIMES A DAY NEEDED FOR MUSCLE SPASMS. cyclobenzap Yes TAKE ONE M ethodi rine 1-04 (1) st (FLEXERIL) 00:00: TABLET(S) Ho spita 10 mg 00 BY MOUTH l tablet THREE TIMES A DAY NEEDED FOR MUSCLE SPASMS. omeprazole 2019-11 Yes 40mg QD Take 40 mg M ethodi (PriLOSEC) 2-[address] 40 MG 00:00: daily. Hospita capsule 00 l omeprazole 2019-11 Yes 40mg QD Take 40 mg M ethodi (PriLOSEC) 2-[address] 40 MG 00:00: daily. Hospita capsule 00 l meloxicam 2019-11- No TAKE ONE Met hodi (MOBIC) 15 1-25 10-15 (1) st mg tablet 00:00: 00:00 TABLET(S) Ho spita 00 :00 BY MOUTH l ONCE A DAY. meloxicam 2019-11- No TAKE ONE Met hodi (MOBIC) 15 1-25 10-15 (1) st mg tablet 00:00: 00:00 TABLET(S) Ho spita 00 :00 BY MOUTH l ONCE A DAY. HYDROcodone 2019-11 Yes 1{tbl} Q8H Take 1 Me thodi -acetaminop 1-[address] hen ([employer]) 00:00: mouth Hospi ta 7.5-325 mg 00 every 8 l per tablet (eight) hours as needed. HYDROcodone 2019-11 Yes 1{tbl} Q8H Take 1 Me thodi -acetaminop 1-[address] hen (NORATG Access) 00:00: mouth Hospi ta 7.5-325 mg 00 every 8 l per tablet (eight) hours as needed. promethazin Yes 1-2 tabs Me thodi e 4-01 PO q4-6 st (PHENERGAN) 00:00: prn Hospit a 12.5 MG 00 nausea/vom l tablet it promethazin 2020-0 Yes 1-2 tabs Me thodi e 4-01 PO q4-6 st (PHENERGAN) 00:00: prn Hospit a 12.5 MG 00 nausea/vom l tablet it losartan-hy 2020-0 Yes 1{tbl} QD Take 1 Me thodi drochloroth 1-[address] iazide 00:00: mouth Hospita (HYZAAR) 00 daily. l 50-12.5 mg per tablet losartan-hy 2020-0 Yes 1{tbl} QD Take 1 Me thodi [...] Comments Source Systolic blood 2021-11-27 157 mm[Hg] [facility] pressure 22:07:00 [facility] Diastolic blood 2021-11-27 92 mm[Hg] [place] o f pressure :07:00 [facility] Heart rate 2021-11-27 117 /min [facility] :07:00 [facility] Body temperature 2021-11-27 39.67 Claudine last dose of [facility] :07: Motrin this AM [facility] Respiratory rate 2021-11-27 16 /min [facility] :07:00 [facility] Body height 2021-11-27 190.5 cm [facility] :07:00 [facility] Body weight 2021-11-27 94.518 kg [facility] :07:00 [facility] BMI 2021-11-27 26.05 kg/m2 University of 22:07:00 [facility] Oxygen saturation 2021-11-27 97 /min University in Arterial blood 22:07:00 [facility] by Pulse oximetry Branch Systolic blood 2021-09-04 147 mm[Hg] [facility] pressure 19:12:00 Diastolic blood 2021-09-04 72 mm[Hg] [facility] pressure 19:12:00 Heart rate 2021-09-04 94 /min [facility] 19:12:00 Body temperature 2021-09-04 36.5 Claudine [facility] 19:12:00 Body height 2021-09-04 182.9 cm [facility] 19:12:00 Body weight 2021-09-04 92.987 kg [facility] 19:12:00 BMI 2021-09-04 27.80 kg/m2 [facility] 19:12:00 Systolic blood 2022-06-24 135 mm[Hg] [facility] pressure 19:11: Hospital Diastolic blood 2022-06-24 72 mm[Hg] [facility] pressure 19:11:00 Hospital Heart rate 2022-06-24 88 /min [facility] 19:11:00 Hospital Respiratory rate 2022-06-24 18 /min [facility] 19:11:00 Hospital Body height 2022-06-24 182.9 cm [facility] 19:11: Hospital Body weight 2022-06-24 97.07 kg [facility] 19:11: Hospital BMI 2022-06-24 29.02 kg/m2 [facility] 19:11:00 Hospital Oxygen saturation 2022-06-24 93 /min [facility] in Arterial blood 19:11:00 Hospital by Pulse oximetry Body temperature 2021-11-03 36.44 Claudine [facility] 16:20:00 Hospital BP Systolic 2019-11-01 144 mm[Hg] Location: RUE; [facility] 14:32:00 Position: Sitting BP Diastolic 2019-11-01 86 mm[Hg] Location: RUE; [facility] 14:32:00 Position: Sitting Height 2019-11-01 75 [in_us] [facility] 14:32:00 Weight 2019-11-01 194.25 [lb_av] [facility] 14:32:00 Body Mass Index 2019-11-01 24.28 kg/m2 [facility] Calculated 14:32:00 Temperature 2019-11-01 99.2 [degF] Method: Oral [facility] 14:32:00 Heart Rate 2019-11-01 103 /min [facility] 14:32:00 Respiration Rate 2019-11-01 20 /min [facility] 14:32:00 O2 SAT 2019-11-01 98 % Source: RA [facility] 14:32:00 BP Systolic 2019-10-18 154 [...] CT ABDOMEN AND PELVIS 2021-12-30 05:35:00 [facility] ABD/PELVIC EXTERNAL 2021-12-29 19:17:03 Nicko Palacios [facility] STUDY POC URINALYSIS DIPSTICK 2021-12-23 17:14:00 Candelaria Sears [facility] Ivan MEASURE POST VOID RESIDUAL 2021-12-23 16:45:00 [facility] MOLECULAR FLU 2021-11-27 22:21:00 [facility]LE[facility] STREP 2021-11-27 22:18:00 [facility] AN ELECTIVE 2021-11-03 13:46:00 Radha Phillips Ho spital ENDOTRACHEAL AIRWAY COLPORRHAPHY, COMBINED 2021-11-03 13:29:00 Candelaria Sears [facility] ANTEROPOSTERIOR Love URINE CULTURE 2021-10-29 23:46:00 [facility] COMPREHENSIVE METABOLIC 2021-10-29 22:55:00 [facility] PANEL HC COMPLETE BLD COUNT 2021-10-29 22:55:00 [facility] W/AUTO DIFF HEMOGLOBIN A1C 2021-10-29 22:55:00 [facility] ESTIMATED GFR 2021-10-29 22:55:00 [facility] URINALYSIS SCREEN AND 2021-10-29 22:50:00 [facility] MICROSCOPY, WITH REFLEX TO CULTURE COVID-19 QUALITATIVE 2021-10-29 22:01:00 Candelaria Sears [facility] RT-PCR Love MAGNESIUM LEVEL 2021-08-29 09:56:00 Jhoan Torres spital Danielle PHOSPHORUS LEVEL 2021-08-29 09:56:00 Jhoan Torres ospital Danielle CBC HEMOGRAM 2021-08-29 09:56:00 Jhoan Torres spital Danielle BASIC METABOLIC PANEL 2021-08-29 09:56:00 Jhoan Torres [facility] Danielle ESTIMATED GFR 2021-08-29 09:56:00 Jhoan Torres spital Danielle MAGNESIUM LEVEL 2021-08-28 08:58:00 Jhoan Torres spital Danielle PHOSPHORUS LEVEL 2021-08-28 08:58:00 Jhoan Torres H ospital Danielle CBC HEMOGRAM 2021-08-28 08:58:00 Jhoan Torres spital Danielle BASIC METABOLIC PANEL 2021-08-28 08:58:00 Jhoan Torres [facility] Danielle ESTIMATED GFR 2021-08-28 08:58:00 Jhoan Torres spital Danielle MAGNESIUM LEVEL 2021-08-27 10:10:00 Jhoan Torres spital Danielle PHOSPHORUS LEVEL 2021-08-27 10:10:00 Jhoan Torres H ospital Danielle CBC HEMOGRAM 2021-08-27 10:10:00 Jhoan Torres spital Danielle BASIC METABOLIC PANEL 2021-08-27 10:10:00 Jhoan Torres [facility] Danielle ESTIMATED GFR 2021-08-27 10:10:00 Jhoan Torres spital Danielle HC COMPLETE BLD COUNT 2021-08-26 09:24:00 IrisMirnae [facility] W/AUTO DIFF BASIC METABOLIC PANEL 2021-08-26 09:24:00 IrisMirnae [facility] MAGNESIUM LEVEL 2021-08-26 09:24:00 [facility] PHOSPHORUS LEVEL 2021-08-26 09:24:00 [facility]risMirna [facility] 2021-08-26 09:24:00 Rm Medina spital HC COMPLETE BLD COUNT 2021-08-25 10:07:00 IrisMirna [facility] W/AUTO DIFF BASIC METABOLIC PANEL 2021-08-25 10:07:00 IrisMirna [facility] MAGNESIUM LEVEL 2021-08-25 10:07:00 [facility] PHOSPHORUS LEVEL 2021-08-25 10:07:00 IrisMirna [facility] ESTIMATED GFR 2021-08-25 10:07:00 Rm Medina spital HC COMPLETE BLD COUNT 2021-08-24 10:03:00 IrisMirna [facility] W/AUTO DIFF BASIC METABOLIC PANEL 2021-08-24 10:03:00 IrisMirna [facility] LACTIC ACID LEVEL 2021-08-24 10:03:00 IrisMirna [facility] MAGNESIUM LEVEL 2021-08-24 10:03:00 [facility] PHOSPHORUS LEVEL 2021-08-24 10:03:00 IrisMirna Brittany [facility] ESTIMATED GFR 2021-08-24 10:03:00 Rm Medina spital SMEAR REVIEW 2021-08-24 10:03:00 Rm Medina spital HC COMPLETE BLD COUNT 2021-08-23 10:23:00 IrisMirna escobar [facility] W/AUTO DIFF BASIC METABOLIC PANEL 2021-08-23 10:23:00 Iris, Mirna Soto [facility] LACTIC ACID LEVEL 2021-08-23 10:23:00 Iris, Mirna Soto [facility] MAGNESIUM LEVEL 2021-08-23 10:23:00 Iris, Mirna Soto [facility] PHOSPHORUS LEVEL 2021-08-23 10:23:00 Iris, Mirna Brittany [facility] ESTIMATED GFR 2021-08-23 10:23:00 Rm Medina spital XR CHEST 1 VW PORTABLE 2021-08-22 19:09:[address] [facility] COMPLETE BLD COUNT 2021-08-22 18:43:00 Feliciano Stratton [facility] W/AUTO DIFF [facility] COMPREHENSIVE METABOLIC 2021-08-22 18:43:00 Feliciano Stratton [facility] PANEL [place] D-DIMER 2021-08-22 18:43:00 [facility] LACT[facility]ID [facility]EVEL 2021-08-22 18:43:00 Feliciano Stratton [facility] MAGNESIUM LEVEL 2021-08-22 18:43:00 [facility] THYROID STIMULATING 2021-08-22 18:43:00 [facility] HORMONE [facility] PHOSPHORUS LEVEL 2021-08-22 18:43:00 Feliciano Stratton [facility] ESTIMATED GFR 2021-08-22 18:43:00 Feliciano Stratton [facility]ital [facility] ARTERIAL BLOOD GAS 2021-08-22 18:14:00 [facility] ECG 12-LEAD 2021-08-22 18:06:59 Feliciano Stratton ospital [place] POC GLUCOSE 2021-08-22 17:51:00 Rm Medina spital OSI CHEST 2021-08-22 17:46:00 Candida Olivarez [facility] HC COMPLETE BLD COUNT 2021-08-22 10:26:00 Mirna Simmons [facility] W/AUTO DIFF BASIC METABOLIC PANEL 2021-08-22 10:26:00 IrisMirna escobar [facility] LACTIC ACID LEVEL 2021-08-22 10:26:00 Mirna Simmons [facility] ESTIMATED GFR 2021-08-22 10:26:[address] AN ELECTIVE 2021-08-21 21:25:00 James Wells [facility] ENDOTRACHEAL AIRWAY LAPAROTOMY, EXPLORATORY 2021-08-21 21:15:00 Lissy Wilson [facility] XR ABDOMEN 1 VW PORTABLE 2021-08-21 13:30:00 IrisMirna escobar [facility] SURGICAL PATHOLOGY REQUEST 2021-08-21 13:22:00 Rm Medina [facility] COVID-19 ANTI-SPIKE IGG 2021-08-21 10:28:[address] [facility] ANTIBODY TITER Jose Antonio HC COMPLETE BLD COUNT 2021-08-21 10:28:00 Mirna Simmons [facility] W/AUTO DIFF BASIC METABOLIC PANEL 2021-08-21 10:28:00 Mirna Simmons [facility] COVID-19 SEROLOGY PATIENT 2021-08-21 10:28:00 Cj Norton [facility] SURVEILLANCE Jose Antonio ESTIMATED GFR 2021-08-21 10:28:00 Rm Medina Ho spital LACTIC ACID LEVEL 2021-08-21 10:28:00 Cj Norton [facility] Jose Antonio PATHOLOGY OUTSIDE 2021-08-21 00:00:00 Jed Reardon [facility] HC COMPLETE BLD COUNT 2021-08-20 08:53:00 Mirna Simmons [facility] W/AUTO DIFF BASIC METABOLIC PANEL 2021-08-20 08:53:00 Mirna Simmons [facility] ESTIMATED GFR 2021-08-20 08:53:00 Rm Medina [facility] XR ABDOMEN 1 VW PORTABLE 2021-08-19 20:52:00 Lila Kumari [facility] LACTIC ACID LEVEL, SEPSIS 2021-08-19 20:37:00 Mirna Simmons [facility] - NOW AND REPEAT 2X EVERY 3 HOURS OSI ABDOMEN 2021-08-19 17:47:00 Candida Olivarez [facility] XR ABDOMEN 1 VW PORTABLE 2021-08-19 13:40:00 [facility] CARCINOEMBRYONIC ANTIGEN 2021-08-19 13:20:00 [facility] ([facility]) CANCER ANTIGEN 19-9 2021-08-19 13:20:00 [facility] PARTIAL THROMBOPLASTIN 2021-08-19 13:20:00 Josue Fair [facility] TIME (PTT) Pastoral LACTIC ACID LEVEL 2021-08-19 13:20:00 [facility] PROTHROMBIN TIME WITH INR 2021-08-19 10:16:00 [facility] Jesús PARTIAL THROMBOPLASTIN 2021-08-19 10:16:00 [facility] TIME (PTT) COVID-19 QUALITATIVE 2021-08-19 08:42:00 KleverWally weiner [facility] RT-PCR Sree LACTIC ACID LEVEL 2021-08-19 08:36:00 [facility] HC COMPLETE BLD COUNT 2021-08-19 08:36:00 [facility] W/AUTO DIFF Sree BASIC METABOLIC PANEL 2021-08-19 08:36:00 [facility] Sree MAGNESIUM LEVEL 2021-08-19 08:36:00 Klever Wally [facility] sp[facility] Sree PHOSPHORUS LEVEL 2021-08-19 08:36:00 Wally Ernst H ospital Sree TYPE AND SCREEN 2021-08-19 08:36:00 Wally Ernst Ho spital Sree ESTIMATED GFR 2021-08-19 08:36:00 Candida Olivarez H ospital PROTHROMBIN TIME WITH INR 2021-08-19 08:36:00 Porciuncula [facility] Jesús Miner PARTIAL THROMBOPLASTIN 2021-08-19 08:36:[address] [facility] TIME (PTT) Jesús Miner CANCER ANTIGEN 19-9 2021-08-19 08:36:00 [facility] CHEST EXTERNAL STUDY 2021-08-19 03:07:00 Candida Olivarez [facility] CT ABD/PELVIC EXTERNAL 2021-08-19 01:25:43 Nicko Palacios [facility] STUDY CT ABD/PELVIC EXTERNAL 2021-08-19 01:25:[address] [facility] STUDY POC URINALYSIS DIPSTICK 2021 15:51:00 Candelaria Sears [facility] [facility] History [facility] Exploratory [facility] of [facility] Laparoscopic [facility] of Hyste[facility] of Knee [facility] Replacement [facility] Replacement [facility] History of Simple Bunion [facility] Exostectomy (Silver Procedure) Plan of Care Planned Activity Planned Date Details Comments Source Future Scheduled 2022-07-22 HEPATITIS B VACCINES [facility] Test 22:33:11 (1 of 3 - 3-dose series) [code = HEPATITIS B VACCINES (1 of 3 - 3-dose series)] Future Scheduled 2022-07-22 Hepatitis C screening [facility] Test 22:33:11 (procedure) [code = 484929145] Future Scheduled 2022-07-22 Screening for [facility] Test 22:33:11 malignant neoplasm of cervix (procedure) [code = 780376454] Future Scheduled 2022-07-22 BREAST CANCER [facility] Test 22:33:11 SCREENING [code = BREAST CANCER SCREENING] Future Scheduled 2022-07-22 COLONOSCOPY SCREENING [facility] Test 22:33:11 [code = COLONOSCOPY SCREENING] Future Scheduled 2022-07-22 SHINGLES VACCINES (1 Met [facility] Test 22:33:11 of 2) [code = SHINGLES VACCINES (1 of 2)] Future Scheduled 2022-07-22 COVID-19 VACCINE (3 - Me [facility] Test 22:33:11 Booster for Moderna series) [code = COVID-19 VACCINE (3 - Booster for Moderna series)] Future Scheduled 2022-07-22 INFLUENZA VACCINE [facility] Test 22:33:11 [code = INFLUENZA VACCINE] Future Scheduled 2022-07-09 HEPATITIS B VACCINES Met [facility] Test 11:39:05 (1 of 3 - 3-dose series) [code = HEPATITIS B VACCINES (1 of 3 - 3-dose series)] Future Scheduled 2022-07-09 Hepatitis C screening [facility] Test 11:39:05 (procedure) [code = 425598928] Future Scheduled 2022-07-09 Screening for [facility] Test 11:39:05 malignant neoplasm of cervix (procedure) [code = 379615660] Future Scheduled 2022-07-09 BREAST CANCER [facility] Test 11:39:05 SCREENING [code = BREAST CANCER SCREENING] Future Scheduled 2022-07-09 COLONOSCOPY SCREENING [facility] Test 11:39:05 [code = COLONOSCOPY SCREENING] Future Scheduled 2022-07-09 SHINGLES VACCINES (1 Met [facility] Test 11:39:05 of 2) [code = SHINGLES VACCINES (1 of 2)] Future Scheduled 2022-07-09 COVID-19 VACCINE (3 - Me [facility] Test 11:39:05 Booster for Moderna series) [code = COVID-19 VACCINE (3 - Booster for Moderna series)] Future Scheduled 2022-07-09 INFLUENZA VACCINE [facility] Test 11:39:05 [code = INFLUENZA VACCINE] Encounters Start End Encounter Admission Attending Care Care Encounter Source Date/Time Date/Time Type Type Clinicians Facility Department ID 2022-04-01 Outpatient SYSTEM, SHARATH [facility]LY [id number] 10:41:31 PROVIDER Barney o n 2022-02-06 Outpatient [facility] [id number] [place] 11:18:23 [id number] [facility] 2021-08-21 Outpatient STEVE [facility] [id number] [place] 13:19:11 [facility] 2021-08-19 Outpatient VAN EPS, [facility] [id number] [place] 12:52:48 [facility] 2022-06-24 2022-06-24 Office Joie Gonzalez 1.2.840.1 [id number] Methodi 14:15:00 14:45:00 Visit Alfred Pattenvi 71661.1.[address] 3.430.2.7 Hospit a .3.922438 l .8 2022-06-24 2022-06-24 Office Joie Gonzalez Sterling 1.2.840.1 [id number] Methodi 14:15:00 14:45:00 Visit Alfred Pattenvi 67226.1.[address] 3.430.2.7 Hospit a .3.596288 l .8 2022-06-17 2022-06-17 [facility], 1.2.840.1 [id number] 2099 [id number] Methodi 11:08:12 23:59:00 Encounter Nicko 67254.1.[address] 3.430.2.7 Hospit a .3.843796 l .8 2022-06-17 2022-06-17 [facility], 1.2.840.1 [id number] 2099 [id number] Methodi 11:08:12 23:59:00 Encounter Nicko 61159.1.[address] 3.430.2.7 Hospit a .3.549816 l .8 2022-06-16 2022-06-16 [facility], 1.2.840.1 [id number] 2099 [id number] Methodi 12:22:00 23:59:00 Encounter Nicko 79827.1.[address] 3.430.2.7 Hospit a .3.058473 l .8 2022-06-16 2022-06-16 [facility], 1.2.840.1 [id number] 2099 [id number] Methodi 12:22:00 23:59:00 Encounter Nicko 97121.1.[address] 3.430.2.7 Hospit a .3.156671 l .8 2022-06-16 2022-06-16 [facility], 1.2.840.1 [id number] 2099 [id number] Methodi 12:17:44 12:21:00 Encounter Nicko 85718.1.[address] 3.430.2.7 Hospit a .3.608196 l .8 2022-06-16 2022-06-16 [facility], 1.2.840.1 [id number] 2099 [id number] Methodi 12:17:44 12:21:00 Encounter Nicko 57430.1.[address] 3.430.2.7 Hospit a .3.834587 l .8 2022-06-16 2022-06-16 [facility], 1.2.840.1 [id number] 2099 [id number] Methodi 12:05:15 12:16:00 Encounter Nicko 98130.1.[address] 3.430.2.7 Hospit a .3.752619 l .8 2022-06-16 2022-06-16 [facility], 1.2.840.1 [id number] 2099 [id number] Methodi 12:05:15 12:16:00 Encounter Nicko 93774.1.[address] 3.430.2.7 Hospit a .3.526621 l .8 2022-06-16 2022-06-16 [facility], 1.2.840.1 [id number] 50494 62994 Methodi 00:00:00 00:00:00 Only Nicko 72798.1.[address] 3.430.2.7 Hospit a .3.058216 l .8 2022-06-16 2022-06-16 [facility], 1.2.840.1 [id number] 00055 48691 Methodi 00:00:00 00:00:00 Only Nicko 83306.1.[address] 3.430.2.7 Hospit a .3.773399 l .8 2022-06-03 2022-06-03 Kenna Jamie, 1.2.840.1 [id number] 2099 [id number] Methodi 00:00:00 00:00:[address] 3.430.2.7 Hospit a .3.498577 l .8 2022-06-03 2022-06-03 Leona Ayala 1.2.840.1 [id number] 2100 707628 Method 00:00:00 00:00:[address] 3.430.2.7 Hospit a .3.215128 l .8 2022-05-25 2022-05-25 Ancillary EL 1.2.840.1 [id number] 1094 616940 Univers 23:30:00 23:35:00 Procedure 73699.1.1 it y of 3.412.2.7 [place] .3.388446 MD Rivera8 [facility] 2022-05-25 2022-05-25 Ancillary 1.2.840.1 [id number] 1094 843228 Univers 23:30:00 23:35:00 Procedure 61316.1.1 it y of 3.412.2.7 [place] .3.261503 MD Adam [facility] 2022-03-30 2022-03-30 Ancillary EL 1.2.840.1 [id number] 1092 580975 Univers 20:05:00 20:10:00 Procedure 22936.1.1 it y of 3.412.2.7 [place] .3.747319 MD Rivera8 [facility] 2022-03-30 2022-03-30 Ancillary 1.2.840.1 [id number] 1092 970642 Univers 20:05:00 20:10:00 Procedure 92366.1.1 it y of 3.412.2.7 [place] .3.130875 MD Rivera8 [facility] 2022-03-30 2022-03-30 Ancillary EL 1.2.840.1 [id number] 1092 [id number] Univers 20:00:00 20:05:00 Procedure 91490.1.1 it y of 3.412.2.7 [place] .3.469870 MD Adam [facility] 2022-03-30 2022-03-30 Ancillary 1.2.840.1 [id number] 1092 214240 Univers 20:00:00 20:05:00 Procedure 31429.1.1 it y of 3.412.2.7 [place] .3.560685 .8 [facility] 2022-03-25 2022-03-25 Lab Liban Javed 1.2.840.1 5295530 52 [id number] Univers 00:00:00 00:00:00 Jed Velez 31330.1.1 ity of n 3.412.2.7 [place] .3.816097 MD Rivera8 [facility] 2022-03-25 2022-03-25 Lab Liban Javed 1.2.840.1 9620413 52 [id number] Univers 00:00:00 00:00:00 Jed Velez 52163.1.1 ity of n 3.412.2.7 [place] .3.591326 MD Rivera8 [facility] 2022-01-01 2022-01-01 Outpatient GC_TNC_Lovi PRIV PRIV [id number] [facility] 06:01:00 06:01:00 tt_S [id number] Medica l 2021-12-23 2021-12-23 Office Renu, 1.2.840.1 [id number] 2099 [id number] Methodi 10:45:00 13:24:32 Visit Candelaria 29847.1.[address] Love 3.430.2.7 Hospit a .3.237365 l .8 2021-12-23 2021-12-23 Office Renu 1.2.840.1 [id number] 2099 947136 Methodi 10:45:00 13:24:32 Visit Candelaria 15497.1.[address] Love 3.430.2.7 Hospit a .3.614030 l .8 2021-12-23 2021-12-23 Travel 1.2.840.1 1.2.789.470 5140 086423 Methodi 00:00:00 00:00:[address] 3.430.2.7 0.2.7.3.698 Ho spita .3.944385 084.8 l .8 2021-12-23 2021-12-23 Travel 1.2.840.1 1.2.349.844 7181 625100 Methodi 00:00:00 00:00:[address] 3.430.2.7 0.2.7.3.698 Ho spita .3.788883 084.8 l .8 2021-11-29 2021-11-29 Telephone Trudy Vernon 1.2.840.114 9 [id number] [facility] 00:00:00 00:00:00 LÓPEZ 350.1.13.10 it y [facility] 4.2.7.2.686 Chapo as [phone] [address] 2021-11-27 2021-11-27 Outpatient R [facility] [id number] 60740 Univers 16:00:00 16:56:53 SLY may [facility] 2021-11-27 2021-11-27 [facility] Sly Arredondo [facility] 1.2.840.114 [id number] Univers 16:00:00 16:20:00 [facility] 350.1.13.10 ity [facility] 4.2.7.2.686 Chapo as ILA?BLEA [phone] [address] MEDICAL OFFICE BUILDING 2021-11-24 2021-11-24 Telephone Renu 1.2.840.1 [id number] 21 [id number] Methodi 00:00:00 00:00:[address] Love 3.430.2.7 Hospit a .3.978728 l .8 2021-11-24 2021-11-24 Telephone Renu 1.2.840.1 [id number] 21 [id number] Methodi 00:00:00 00:00:[address] Love 3.430.2.7 Hospit a .3.207280 l .8 2021-11-17 2021-11-17 Telephone Renu 1.2.840.1 [id number] 21 [id number] Methodi 00:00:00 00:00:[address] Love 3.430.2.7 Hospit a .3.435450 l .8 2021-11-17 2021-11-17 Telephone Renu, 1.2.840.1 [id number] 21 [id number] Methodi 00:00:00 00:00:[address] Love 3.430.2.7 Hospit a .3.786078 l .8 2021-11-10 2021-11-10 Clinical 1.2.840.1 997860901 65034 23944 Methodi 11:00:00 12:59:[address] 3.430.2.7 Hospit a .3.590888 l .8 2021-11-10 2021-11-10 Clinical 1.2.840.1 [id number] 91092 Methodi 11:00:00 12:59:[address] 3.430.2.7 Hospit a .3.292064 l .8 2021-11-10 2021-11-10 Travel 1.2.840.1 1.2.875.827 2818 164468 Methodi 00:00:00 00:00:[address] 3.430.2.7 0.2.7.3.698 Ho spita .3.672208 084.8 l .8 2021-11-10 2021-11-10 Travel 1.2.840.1 1.2.012.547 9459 719643 Methodi 00:00:00 00:00:[address] 3.430.2.7 0.2.7.3.698 Ho spita .3.258399 084.8 l .8 2021-11-05 2021-11-05 Clinical 1.2.840.1 [id number] 14974 90139 Methodi 11:00:00 12:09:[address] 3.430.2.7 Hospit a .3.996847 l .8 2021-11-05 2021-11-05 Clinical 1.2.840.1 115716797 13174 15103 Methodi 11:00:00 12:09:[address] 3.430.2.7 Hospit a .3.118195 l .8 2021-11-05 2021-11-05 Travel 1.2.840.1 1.2.585.023 9221 212716 Methodi 00:00:00 00:00:[address] 3.430.2.7 0.2.7.3.698 Ho spita .3.606900 084.8 l .8 2021-11-05 2021-11-05 Travel 1.2.840.1 1.2.868.968 4141 979764 Methodi 00:00:00 00:00:[address] 3.430.2.7 0.2.7.3.698 Ho spita .3.478201 084.8 l .8 2021-11-03 2021-11-03 [facility], 1.2.840.1 [id number] 060 0883494 Methodi 05:21:00 16:04:00 Encounter Candelaria 47584.1.[address] Love 3.430.2.7 Hospit a .3.193357 l .8 2021-11-03 2021-11-03 [facility] 1.2.840.1 [id number] 602 6060631 Methodi 05:21:00 16:04:00 Encounter Candelaria 96106.1.[address] Love 3.430.2.7 Hospit a .3.672046 l .8 2021-11-03 2021-11-03 Surgery Rumely, 1.2.840.1 [id number] 2099 816054 Methodi 07:30:00 10:40:[address] Love 3.430.2.7 Hospit a .3.257069 l .8 2021-11-03 2021-11-03 Surgery Renu, 1.2.840.1 [id number] 2100 784794 Methodi 07:30:00 10:40:[address] Love 3.430.2.7 Hospit a .3.704205 l .8 2021-11-03 2021-11-03 Anesthesia Sommer Nichols 1.2.840. 1 [id number] Methodi 07:29:00 10:23:00 Event Mel Avila 64842.1.[address] 3.430.2.7 Hospit a .3.184611 l .8 2021-11-03 2021-11-03 Anesthesia Sommer Nichols 1.2.840. 1 [id number] Methodi 07:29:00 10:23:00 Event Mel Avila 65318.1.[address] 3.430.2.7 Hospit a .3.019175 l .8 2021-11-03 2021-11-03 Telephone [place], 1.2.840.1 [id number] 21 [id number] Methodi 00:00:00 00:00:00 Shenetrius 43055.1.1 553 s t 3.430.2.7 Hospit a .3.832156 l .8 2021-11-03 2021-11-03 Telephone Kylie, 1.2.840.1 [id number] 21 [id number] Methodi 00:00:00 00:00:00 Shenetrius 13062.1.1 553 s t 3.430.2.7 Hospit a .3.162145 l .8 2021-10-29 2021-10-29 Pre-Admiss Renu, 1.2.840.1 [id number] 2 [id number] Methodi 15:20:00 16:20:00 ion Candelaria 30257.1.[address] Testing Love 3.430.2.7 Hospit a .3.418422 l .8 2021-10-29 2021-10-29 Pre-Admiss Renu, 1.2.840.1 051634015 2 [id number] Methodi 15:20:00 16:20:00 ion Candelaria 51094.1.[address] Testing Love 3.430.2.7 Hospit a .3.509801 l .8 2021-10-29 2021-10-29 Travel 1.2.840.1 1.2.374.526 3190 115007 Methodi 00:00:00 00:00:[address] 3.430.2.7 0.2.7.3.698 Ho spita .3.173881 084.8 l .8 2021-10-29 2021-10-29 Travel 1.2.840.1 1.2.291.860 2930 115007 Methodi 00:00:00 00:00:[address] 3.430.2.7 0.2.7.3.698 Ho spita .3.771577 084.8 l .8 2021-10-27 2021-10-27 Telephone Renu, 1.2.840.1 [id number] 21 [id number] Methodi 00:00:00 00:00:[address] Love 3.430.2.7 Hospit a .3.556007 l .8 2021-10-27 2021-10-27 Telephone Renu, 1.2.840.1 [id number] 21 [id number] Methodi 00:00:00 00:00:[address] Love 3.430.2.7 Hospit a .3.503370 l .8 2021-10-20 2021-10-20 Telephone Renu, 1.2.840.1 [id number] 21 [id number] Methodi 00:00:00 00:00:[address] Love 3.430.2.7 Hospit a .3.813391 l .8 2021-10-20 2021-10-20 Telephone Renu, 1.2.840.1 331278781 21 [id number] Methodi 00:00:00 00:00:[address] Love 3.430.2.7 Hospit a .3.764742 l .8 2021-10-01 2021-10-01 Telephone Renu, 1.2.840.1 216879290 80491428 Methodi 14:15:00 14:30:00 Consult Candelaria 50993.1.[address] Love 3.430.2.7 Hospit a .3.385829 l .8 2021-10-01 2021-10-01 Telephone Renu, 1.2.840.1 350855187 78848799 Methodi 14:15:00 14:30:00 Consult Candelaria 59554.1.[address] Love 3.430.2.7 Hospit a .3.815647 l .8 2021-10-01 2021-10-01 Outpatient [facility] 23301 32620 [place] 00:00:00 00:00:00 CANDELARIA [address] 2021-10-01 2021-10-01 Orders Rose, 1.2.840.1 [id number] 941895 0109 Methodi 00:00:00 00:00:00 Only Irene 69269.1.[address] 3.430.2.7 Hospit a .3.074425 l .8 2021-10-01 2021-10-01 Orders Rose, 1.2.840.1 471967180 701291 7842 Methodi 00:00:00 00:00:00 Only Irene 17784.1.[address] 3.430.2.7 Hospit a .3.751087 l .8 2021-09-25 2021-09-25 Telephonic ESTEFANIA Wilson 1.2.840.114 1 [id number] [place] 11:04:05 12:53:20 Encounter Lissy CARDENAS 350.1.13.58 Health 9.2.7.2.686 [id number] 3 2021-09-04 2021-09-04 Office ESTEFANIA Wilson 1.2.680.206 9912 42696 [place] 14:04:50 14:42:37 Visit Lissy CARDENAS 350.1.13.58 H [facility] 9.2.7.2.686 [id number] 3 2021-09-01 2021-09-01 Telephone Reun, 1.2.840.1 [id number] 21 [id number] Methodi 00:00:00 00:00:[address] Love 3.430.2.7 Hospit a .3.806089 l .8 2021-09-01 2021-09-01 Telephone Renu, 1.2.840.1 [id number] 21 [id number] Methodi 00:00:00 00:00:[address] Love 3.430.2.7 Hospit a .3.776453 l .8 2021-08-19 2021-08-29 [facility] 1.2.840.1 972555 035 [id number] Methodi 01:47:00 13:27:00 Encounter Rm Medina Le 75728.1.[address] Jhoan Torres 3.430.2.7 Hospita .3.726850 l .8 2021-08-19 2021-08-29 [facility] 1.2.840.1 314470 035 [id number] Methodi 01:47:00 13:27:00 Encounter Rm Medina Le 80770.1.[address] Jhoan Torres 3.430.2.7 Hospita .3.488940 l .8 2021-08-21 2021-08-21 Anesthesia Russell 1.2.840.1 [id number] 250 7671002 Methodi 16:16:00 20:28:00 Event Peter 97408.1.[address] 3.430.2.7 Hospit a .3.867169 l .8 2021-08-21 2021-08-21 Anesthesia Russell 1.2.840.1 [id number] 122 8334227 Methodi 16:16:00 20:28:00 Event Peter 66846.1.[address] 3.430.2.7 Hospit a .3.088358 l .8 2021-08-21 2021-08-21 Surgery [place], 1.2.840.1 756672287 905113 2386 Methodi 13:20:00 16:05:[address] 3.430.2.7 Hospit a .3.004191 l .8 2021-08-21 2021-08-21 Surgery [place], 1.2.840.1 915535552 311138 5970 Methodi 13:20:00 16:05:[address] 3.430.2.7 Hospit a .3.601327 l .8 2021-08-19 2021-08-19 Telephone Renu, 1.2.840.1 073606079 30137614 Methodi 00:00:00 00:00:[address] Love 3.430.2.7 Hospit a .3.178984 l .8 2021-08-19 2021-08-19 Telephone Renu, 1.2.840.1 993380178 09018108 Methodi 00:00:00 00:00:[address] Love 3.430.2.7 Hospit a .3.121618 l .8 2021-08-18 2021-08-18 Travel 1.2.840.1 1.2.765.223 9392 473038 Methodi 00:00:00 00:00:[address] 3.430.2.7 0.2.7.3.698 Ho spita .3.700783 084.8 l .8 2021-08-18 2021-08-18 Travel 1.2.840.1 1.2.765.130 7481 781869 Methodi 00:00:00 00:00:[address] 3.430.2.7 0.2.7.3.698 Ho spita .3.546964 084.8 l .8 2021 2021 Office Renu, 1.2.840.1 [id number] 2099 090930 Methodi 09:15:00 11:41:18 Visit Candelaria 16344.1.[address] Love 3.430.2.7 Hospit a .3.027244 l .8 2021 2021 Office Renu, 1.2.840.1 000601448 2099 219282 Methodi 09:15:00 11:41:18 Visit Candelaria 60685.1.[address] Love 3.430.2.7 Hospit a .3.269113 l .8 2021 2021 Travel 1.2.840.1 1.2.415.481 8514 341753 Methodi 00:00:00 00:00:[address] 3.430.2.7 0.2.7.3.698 Ho spita .3.131923 084.8 l .8 2021 2021 Travel 1.2.840.1 1.2.623.331 0618 904444 Methodi 00:00:00 00:00:[address] 3.430.2.7 0.2.7.3.698 Ho spita .3.347832 084.8 l .8 2021-08-11 2021-08-11 Telephone Renu, 1.2.840.1 [id number] [id number] Methodi 00:00:00 00:00:[address] Love 3.430.2.7 Hospit a .3.246984 l .8 2021-08-11 2021-08-11 Telephone Renu, 1.2.840.1 [id number] 50573472 Methodi 00:00:00 00:00:[address] Love 3.430.2.7 Hospit a .3.067180 l .8 2021-08-04 2021-08-04 Telephone Renu, 1.2.840.1 [id number] 21 [id number] Methodi 00:00:00 00:00:[address] Love 3.430.2.7 Hospit a .3.306550 l .8 2021-08-04 2021-08-04 Telephone Renu, 1.2.840.1 588527997 21 [id number] Methodi 00:00:00 00:00:[address] Love 3.430.2.7 Hospit a .3.961701 l .8 2021-07-09 2021-07-09 Orders An, 1.2.840.1 612703475 556535 0072 Methodi 00:00:00 00:00:00 Only Kaylah 51992.1.[address] 3.430.2.7 Hospit a .3.435693 l .8 2021-07-01 2021-07-01 Outpatient RENU [facility] 06700 31970 [place] 00:00:00 00:00:00 CANDELARIA 873 Method i 2021-03-11 2021-03-11 Outpatient THEKDI, [facility] [id number] 318 [place] 00:00:00 00:00:00 CHU 763 Method i 2021-02-26 2021-02-26 Outpatient THEKDI, [facility] [id number] 456 [place] 00:00:00 00:00:00 CHU 635 Method i 2021-02-24 2021-02-24 Outpatient THEKDI, [facility] 253 [id number] 550 [place] 00:00:00 00:00:00 CHU 779 Method i 2021-01-08 2021-01-08 Outpatient THEKDI, [facility] [id number] 267 [place] 00:00:00 00:00:00 CHU 704 Method i 2020-11-28 2020-11-28 Outpatient THEKDI, [facility] [id number] 723 [place] 00:00:00 00:00:00 CHU 101 Method i 2020-11-20 2020-11-20 Outpatient PETEVERARDO, [facility] [id number] 937 [place] 00:00:00 00:00:00 JACQUI 050 Method i 2020-11-11 2020-11-11 Outpatient [facility] 750 [id number] 814 [place] 00:00:00 00:00:00 CHU 428 Method i 2020-10-30 2020-10-30 Outpatient TRINA [facility] [id number] 863 [place] 00:00:00 00:00:00 CHU 447 Method i 2020-10-30 2020-10-30 Outpatient STEPHEN, [facility] [id number] 866 [place] 00:00:00 00:00:00 KATEY 260 Method i 2020-10-30 2020-10-30 Outpatient STEPHEN [facility] [id number] 866 [place] 00:00:00 00:00:00 KATEY 261 Method i 2020-10-23 2020-10-23 Telephone Pcp, [facility] 1.2.556.454 9452 2221 00:00:00 00:00:00 Patient Health 350.1.13.10 Does Not [place] [id number] Have A Professio [phone] nal 044 [address] One 2020-10-05 2020-10-05 Laboratory Lab, [facility] [id number] 15:32:07 15:52:07 Only Fam Pob I Health [id number] [place] [id number] Professio [phone] nal 044 Office [address] One 2020-10-05 2020-10-05 Letter Doctor TALIB [id number] 00:00:00 00:00:00 (Out) Unassigned, LÓPEZ [id number] [facility] [id number] [id number] 2020-10-03 2020-10-03 Outpatient STEPHEN, [facility] [id number] [place] 00:00:00 00:00:00 KATEY 640 Method i 2020-09-26 2020-09-26 Outpatient [facility] [id number] [place] 00:00:00 00:00:00 219 Method i 2020-09-23 2020-09-23 Outpatient DUNLAP, [facility] [id number] [place] 00:00:00 00:00:00 BROWN [address] 2020-09-23 2020-09-23 Outpatient DUNLAP, [facility] [id number] [place] 00:00:00 00:00:00 BROWN [address] 2020-09-23 2020-09-23 Outpatient DUNLAP, [facility] [id number] [place] 00:00:00 00:00:00 BROWN [address] 2020-09-23 2020-09-23 Outpatient DUNLAP, [facility] [id number] [place] 00:00:00 00:00:00 BROWN [address] 2020-09-23 2020-09-23 Outpatient DUNLAP, [facility] [id number] [place] 00:00:00 00:00:00 BROWN [address] 2020-09-23 2020-09-23 Outpatient DUNLAP, [facility] [id number] [place] 00:00:00 00:00:00 BROWN [address] 2020-07-23 2020-07-23 Outpatient THEKDI, [facility] [id number] [place] 00:00:00 00:00:00 CHU [address] 2020-07-01 2020-07-01 Outpatient ERGUN, [facility] [id number] [place] 00:00:00 00:00:00 GULCHIN [address] 2020-05-01 2020-05-01 Outpatient LORI, [facility] [id number] [place] 00:00:00 00:00:00 NEHEMIAS 750 Method i 2020-05-01 2020-05-01 Outpatient JULIAN, [facility] [id number] [place] 00:00:00 00:00:00 NEHEMIAS [address] 2020-03-19 2020-03-19 Outpatient ERGUN, [facility] [id number] [place] 00:00:00 00:00:00 GULCHIN [address] 2020-02-14 2020-02-14 Outpatient ERGUN, [facility] [id number] [place] 00:00:00 00:00:00 GULCHIN [address] 2020-01-31 2020-01-31 Outpatient ERGUN, [facility] [id number] [place] 00:00:00 00:00:00 GULCHIN [address] 2020-01-02 2020-01-02 Outpatient ERGUN, [facility] [id number] [place] 00:00:00 00:00:00 GULCHIN 723 Method i 2020-01-02 2020-01-02 Outpatient ERGUN, [facility] [id number] [place] 00:00:00 00:00:00 GULCHIN 357 Method i 2020-01-02 2020-01-02 Outpatient ERGUN, [facility] [id number] [place] 00:00:00 00:00:00 GULCHIN 186 Method i 2020-01-02 2020-01-02 Outpatient ERGUN, [facility] [id number] [place] 00:00:00 00:00:00 GULCHIN 131 Method i 2020-01-01 2020-01-01 Outpatient ERGUN, [facility] [id number] [place] 00:00:00 00:00:00 GULCHIN 825 Method i 2020-01-01 2020-01-01 Outpatient ERGUN, [facility] [id number] [place] 00:00:00 00:00:00 GULCHIN 826 Method i 2019-11-01 2019-11-01 Appointmen ESTEFANIA SPICER Thoracic [id number] [place] 13:30:00 13:30:00 t; CAREY SPICER Surgery - Physici FARZANEH, M.D. [facility] shai Hinojosa 2019-10-18 2019-10-18 Appointmen ESTEFANIA SPICER Thoracic [id number] [place] 11:00:00 11:00:00 t; CAREY SPICER Surgery Lis Physicyarely PATINO M.D. [facility] shai Hinojosa 2019-10-18 2019-10-18 Outpatient MHSE MHSE [id number] [place] 09:08:00 09:08:00 [facility] Results Test Description Test Time Test Comments Results Result Comments Source Pathology Outside Interpretation 2022-03-26 23:58:33 Test Item Value Reference Range Interpretation Comme nts Materials v6spiFEoAIQcwWNnLhQyKRXuSTTbr5syLNKosOIcHgCgYwEkPsGcKtsnwTGdHRIlBeQij5oug762xEQd e5doJLOeIlO7gWQsTBAswWYtS733KUHoHAlll3hvo9PlRLVtnZImi1J5BTTSqnyvoLm4dHilO12jj0I9 DiybB6taVHEaZFHwP9GbSJ6iCTCwNvb9RJO2OAU0XQK Received sWSHaA5UmXK1jGLFmbXGdXIu5c2elbQdeEPVdJEW4g8nmLRknlmBcDI7eqo5ocNq0q9ldjuLhNEFuIRR nfNUTCCEyM4PftCawHt9opHg4yQmaSlnvEKI5Odl1LX6qob69rhr7yYxoHXCmqyseBaS7CLknJWVorbd jKWp1RUpsSSMigLiyXDxwATCrdwbzMYwwOWJvzCF9SQ (test code UvyNLmU8AiYIQaOJscNPJjabh9FnNzLu0fjOYjnUbbAAmku7ylc9xtkUBzVev3ZLDdHtBnEsbzXSmnx9 Efg1qsJPBxnl1mTJE3tQSheXtdy4P4yOTvSKIovHQmopAhXZJcnp37cYJtzCLrwCBjwr6enpDyfELtpW TuYWG1bJKkcbLqTBSjxDQbJPKdWN8koVGxXWApiA5kj = 9973) xpgGRWfKwPvlqsiBYTbjMqopyPwCg6stSzhADS3RLauH0xxzU1qIrL5MKpoL8xtnY9eGHz9GDcpbOW2F GOflB6cOD8hsgevh1syKjOyJR4rinupk8laWfDzJZ2wuwc7r1znUBV0JMqpFGIqFcY3hpI4TTZkbQIyZ GSpiQvpWXwyi906JVL8KcHrGRCwm6DfW9FroHaqE15x qQqtA93xCPLtpDpgsX7ssCeufG0rMiGbEeTlJAv8dy75YNg7nsjprDgeUSy0goDtWMTrGUF7HAQzjYGd YHFkL4o7pdDqHAFlIBL5LUKzaYCyVZBkA8r7woZpICT8FHg0kkPhEWKjzBDpjBTvGXJmNmUubONhZFUv KvKrLCQwxXNnvLStpHHuaC8vaJpqQYWetSUqwW5tEJF 1FQHpkgloVaVjvBEtMXLudIGtck68RHRcogOrdUWauKjcqGUyPRB0RXTyEXZsNTKjGEI7MBTgLpNkvyQ mSLafgFRaXTUuDSHdMHLdVKKdJFG5FSUzEjOrfpXgSMmmjXIrDLOxQUWfZPRfVRInBVM5BKBwNlNcytC oHLvmpLTrLCHyEOZyGBGxTMNaVYC6NTWqBlRxkiLqQD uprMTiFNUxQZonnFLdPYX0R4mwnRWsJJMfTZlrsBGrYONcJ7tghPFhOUtoJVFedTPuErhxIIUxrOMmCz ObH6paAGPlSmXhM3CpjTt5FGHvKLKkkxVxrZXbcRwfdCHrQGC9VKBjMPVtPSVbWAT8LRZjCcYmfbBpQI zixMRlEXXtJMFtRHWqOPRbEEJ5RBHwQiXmjtTmCEvgl ETrPOAuPCAzIVRbFVHkOCB5SSVrTnLdeoQjXSqqcLWmTQBhPLZiYNMmKKLvFQR3VQUjXmRpabBpXUzdy DCaRXFkEMsbfSRfADB7B0jjcOFbSKTgWUqnyRWxGYLcR6ebkYBhBHqtHYLxfPDoPognEKUvnBQqUxJeM 0nvASYaBoZsN6CvnOd9IbNhOTAyxkUvhNWogSwpuXFf YPZ9ISLaZHYaWSRrNGR9MEMcKgOatoBwIEwxvRVhTZUoCXCjHDVjYGOaSSX7FOYpFwAjqcGySLcytGIw WKLzRMItLBUhOFYvOZS5YGBtDtClfcXfOJcerQKtGDXrSKFsVBCvPPQxHBW3FWZwLuMyodNaGLovaNRe DOZxWCzczMYxIBE8G3qqaLDkSJBkHOahjXNrFXVxK4n liFYkZPylAULrvZFqNdbeCWShrZIzSiMmM4dlGNHiTmDkO3OkdIx2YyIrZONsmkTxcI77Hqafr4LvIYH yMVT9LSyiTIlxfLnplASwyjopMHymnrJwTHjxvcyqTGRvCRhwQ6ybCdDrAHUniMwjCUcay0JuXVOaISS bTkxzevEfFVYwMOVtRPWdzK7lOwvrT0QodD5sIBnzXa tqK5bcXJJgn9OuxB5nCFgqgPWqkcaqBZvrkwRlUGtandxuQVDoLBpnG6etDiRcWUYsjMokXJgtj9NiYT IhPUAjLagnycZdXFb0ecOmAYZpjMyshUUyAXnyfiOblJzmr4VcnyEdkLsdERPwXRn4iwZnrqmzzTg4hY RtnEobMBEdiBiyrG8lQeMlOtKeZIhqaWEaayriVUruo fMtTJyepzqiPSYoBKpdO9tiCaFvYZTizEfjSSxtn0OxQNKxIYZjWvlmlrJfMIKyZ76eoBGjoTBlWEWlQ QnfNWRfZHRyHnPeaBLaQlTxLxToyIckhMqoUVnhTjUtRLQcGLrbU8yiVyXqT5YaMZSiTnInrSFuV4feD 9XsgVfiSMShVSoukMUhJOTdeHCpRIO4gMYhilZsmVTz jBYdOGEdXFmkRUS0zIAgbnkqxOFszretPXlrbsA5KHMzLNmcQWStLIDiEkJgyMYgLvRjWiLjjAlbwVud GOqhAaUtAKMoCMwaN1glHjLnE6GdRCYjXvTnGuKZBBWzyCQpDOfwfAIbfskpIVskqoYgMDteihpwDLLx AEetF2kfAnUcSOLzpFqjFOrjc3HrHPUhDWPnGtyqdcO ySIf5scKcQFMlvVfkfP46Lyuswb60WXUfq1icEMPkT7CpcGRqFFMzmUDgZOwnWTjmyEMwJWFhLuvpFUC qxTLaZDUtCHsspILjZTUgDvNkLYEtxIQvFOShQOCvxTYhFUJ1Q8l4hzIlNPKoXRy2spBwIRVfDwTlwOB tFEN6RMa0NrhdneN9nOOyI5c0AtenxqXaLUcheFFobn 63FWGcjmJogSUboQqxqHRdPPB6ORNzENInAPYuGEQ9BFDsRtHshsCzXNqaoIIhZFPtJTRxXYKgXJFuBA P5RECfYmQoexYcIWtajFPhFXAnLIWaADIuBERfXNK5FVChLhOfwaEjBFkiuKSnWGKwEOMxTXVuAIXhFQ I1AFVrAbMivuSuMScohDFoKJCbUEmvhWYyEQU2L8evn HUkAAUkEVcfiRSaBMGbZ5psyNFcECtwBPUzbYLxSkwxRXYmrPPfDpUvS0jcLZDdCvHxU7EcdQy7FDZbW JSnjbSjwUNowOltbHUyATR4TYAwQIEpEEGwIJQ3ZWCeWgTcwfPzANotsWZeANVsEHPiLCTcGUOfSDK3A JGmIpKfvaZwHFhadDFvHLHgYWKrWAXrGOZaITY4WJTl AtHvobVlABvmyWXqPVRvKKAnCPTnEUVzKMR3QWKmAxYudaCaRQfzrLNdMFHqULniiAIzAPC6P4qtnBZw DXGrPSpqoFTvLHJnM3xljNQiURplDQOguKNpDqgyIAVdlXZlFxWtM6odCQFbGnPyA7QhmUr9BgWtVLOs tiMteSFhnJsvqXDoTGZ3JHQlYJVsNZKaPNZ7ZHDtNpM mltGdPWpbcQNlUVNvWIBeEBGjWPStWJT5OVSsWgOwtbJvMTfdvJDfBQQbPLSbSIJlNJUwGXT9UXSmWfY qkoYnPMxziNGcXGLkQSGsUXOzXVPtLPI1RHJrUpXmftZrRYvjhEQfWMHoXTzjpIAgZHB7Y2ylbBKvFME rGDiqvBSdJZTjB0knrMPsLKtsPTFoiIVfEtipIJGnyV HeVmWkM6vpGPWvOyGuQ0YysIi3EnTqENYzqaEcpM59Pzmjo9TsZHFgCRE3FMrmTWpgzJzkdXFhgedkOI vshcJ9ISLgFXjzMXPtESNlGeBknUHrNzOdLiJprPclsOuaJYtaVqUjDPDuYFelR8ocWqViH8NjNXKjPv ImKK8zC4MiPgXjTdy7OPbzZXD4FDWGHDPwVKDAL0JZG sagSEHXO8IowKiqgZ2rHzKfTsRkFEecTD6aYWGgO0syjWXsPTQiPCUlE6faFxSdgO1waAmvTZmeCuRpT sGfUAzjlSNafHjqQNjwCXFptlGpmO35Rtmxw0RyFBQbVRI5UVlsEKejrZibbDXbvygkIXwrseX1RFAlO WluXGYxXGZzMjBcbGFuZzEwMzNcaGljaFxmMVxkYmNo AXYnPHklH5qqOjTnO9CkDYDvCjVrAYTbDu3yRBSgUESbVNxoKKLtVDQtEoMvhMJuWwWyAgCwoYwnpOtc VOmsJvNaAFMkSZjoC2byEvFjX4TwZUVyIbHjnSKkL5fcT2QofPeyQLNrBUsooUMkYEBozWZiYMG4eZRw xcXwoXrjePcdwA3tSiUzPrZkZXwjyCIxooqrHGhlhkF jWXikmollGRRiBSujC5eqSnHqFJDhdYtfXEdig7IsBIQlJKJjUnprqqVjBTZjAQUbSrFcHbxbjEOjbco rKExtjyQmYWjwmxhtTKKlRZnjE8olJaYvQGOdzKomRSnsp8VbQNIjKFQdWgijxtLfSWh0qnHvYSUipWn vuI92Kzimlm14HPBbmuGda6NtIVGkOUX3LMjnBMjxnX zipOXqgraxFWbtagV6SNBaIQcrPTCoXTNaEeWadYUsPmHzMqPyhTrpfWdyMHlbAkHuSEKbLVuaV8hmTm FcZnMyMFxwYXJ9 Addendum 1 l1gddAKdRZCpyKQ9WlOiLHFmx7rfg6ExiJBhpQPrNZyvsNTnioOydf49tUG0uC29IP5xBYFfLhL0IJSh nkI6Wxq5MTFjEJVxbNNwU375z1noa5ajftGauWW4ZWUzFKOrK4OyXA1dQTHbzZIdW99duWBjGBI3JAAt PHAplOSsCLPuPUM4ONWdlCPmH8whDKKpQD2zucwbDQx (test code pUGbkYORznLO7TXVkqYEzR3NoMPGxIYktJSFmduq0CkRdGu7dtHUioMquLLoeACBwDIGkZCuwXTAcBaX pT6NlCI44aBFhVWSxNOJFAHXvZWM0AFu9YSFzFLBADgomHMOGBK6BS5KcDICjKPVZVWDmj2noRPL1SCC kh55uXMSzDt6eWKRzIDmxzBXjMAQrHRemCMGvoAp2Ld = 37) YiiCyeZlCyXZIaDKWBoBGsnrjcup9ofYwgoszxl9LqC8BvNmeptCA7TKsjFmbqTRLlqFyqHNBiHESrZX qvMRvgeI9aUPJmTUMfrQTpQFOibGGiAYEin63qgwvrBA6hLLIcbgSfKT8jDSXiZFEoecGXpxPhEFsvD3 0utuB2AMhcLN90oUOnLVPeCLNjtztxSAJfkPVoRLhwG XJ9 Diagnosis j2eiaOZsOAYcaNH0MeUxUFRxi3hnz8UigLNpnGVgWGulwEVvajGrlq91gLU1tW04ZM4yXXHaXgL1PWSu xhZ1Dtx7UNAqVEFudEJqN284n2oub3lrecNkgJX4WCIfLCGzI5YnWP0xGYLnmVQjF37jgOXqISF1RWLe YALefYZwLVQzPID4XALnwRNxA6cxHKYqPK1tlykzNRp (test code bLVslIBWqaIL4LKSbvJYcM8UgVFDkDBljKMGztpy4XiVnEl5wyKZilNfmWHfkVLPtQPChFWppNZVjLzX dX3IsMK86mIEbISYaDPOYXCRcRPV6KPm2AXGyCTUUBghvLUXQMY4DC2DfVDDxHFEADXAio3clNQT2FDU lo92wXOYkLb4lWLHkINohfDIlENSnHQcmNLAyfGp8Yx = 34) HahKlrCfKfFMOeDNvlqdBlcO4oc2h5mSBhMVQtbwNrtaquPJ8xn8OiDFKhT39sesIbxEKcISDgE8Dmw4 00TANgeagivOMvQtFsVcfcTuQoTRwkflKqTiJrFqFlrOdaYGS1ih6lUJhvBshcve4biTDraSyktQptdI ulyHuuubXfsxNojhLcE8YcUUNpiPBdqNynFQJyxLjnw tYqgbXlnNHcrwglmGVgZJ78WJHlAlEtMFHlPV6uMWAii5HuGWApek5cFE8bXGIrMHWfd10bAI95RLJjN RwmUPYtXUNyu9Twm5l0CLSqTlFwO02xKSSkseSlhCLhmALmIBEciH6iuLeyqLNkUA2pODFfzM1upUDwe 5JmMRNaflU6hN1wkhSzamUhPK57NRkaYhNyIhqaFNSv ObOkURJ8zT5kPF0zoihnvaRvKTPbQZPyr2SboVVhd9QrDIIcamEDlmHorUDzl5NpgUXnr31zsUbiYx67 FMrgzDMxz7AjWysdPWAapSLwMUspMdMyPRQaLHjxtW35SxBwPg6nIXVgXY63CNX5DSGixQ0je8i6RKGu gge9KAQlCMwutMgmuXifASQwzHTswCMpVFSwi5fgVqE jODSpg30dYTpxKBKaH29rdXBelQBdFqldmSCkLHBdaaQQJvSLyUHnhkfsbw0jwAaczbhei9SdZ1SoPhj apXJ1PXpoHpvfFGSgyNNbOZGmPDCfDHGgD89bCQKvnCWfAsirM5jbwGV4lA4su6g9GGyupQRar6Zhz0T nLVGtZPUwCFXjCVNgdX9dpEwuBVHxgiqlOVDlvNFaPD BhcmRccGFyfQ== Comment x0nfgCCqRFNlkRV7AiGcZCEfi7nxh2AaxBPggNSuDCzdqJTrftUvkc30sPV9fN92TH8xUPUxIdJ1SLRs yuB3Vft8OIMuFOWkvVTaN164g6hfc9bbosUjiOO9zQkoOXKykyfzCoJ3TPvlSBFztriiURh0VDvoHFAu wCV9QVBhbQSlE0NnVMSlSV8ctgn8JUI3SBstMJIgJrQ (test code 1KKGckMGlZZFctQumULlui906YXC5LsOvQRVukeFtgLttvC0qZaLbCNSmUEuKqRBohES3AXCdsM6wqS0 gyXrdcX7gjXUoaRNibOCmhNEwwxPxs6mssyV0jPE7LHBpEXYluTWrkESdYUZgzGRuhpQrlNDzrkPwIIg ueHw9NENwi3LkPtD2RU4tLDIbcyhcOVqzuYHrLLLuXD = 9835) G1nTPmv5Woq38oEPJNNhknCADOSUS8XEWfEFBpqX6vZGUky255cMUzjOLggAWvKAR5rZ8vBKVYQgOwTU TNDQXkPQEqKUG8x0NhEouEFFEgAIAxcoRjW1QxSlPiXXTGUOV0TFleD9eplSwupLGjbrDnK1HtJSYrV9 ciki8yzTCcYBFwhSXiIQCkviCEnONia5AerwMgxTBvr C0aiX8niwIxwlXafNitk6Ecz6VjMLIlJR7kR62nyKOqK0XyenekRbC1UOm7RUvwDIFdZDetRP9fwT5oM TCyKIDpFEPghMR9RjJIqYRwENcvGpRqTR02dXKkFSFxDZyhk5ExrwYkcbKfbQAbhkJgZQJzWOC2lHWqB O2fVRVntmnwhvYxtKYyw9HwARB8rLKsoQUmQ4ZvtlPv buFvCFKmGF9uW20ibfCkU6GnIEUwnPUlzN2aKLM0W9qoXEDzKH5tBFX8XYRde3Iqje59vcUxQVsps4Wr LDIxn44yPtPcIQ2mkhdcs88qPCapmXylfeGeB3CunkXqR1zcfuoqdi5mLOAghhrgXQHiYyR8FBU3Rj1y xJZgEFBlxN40fh2ylCC5j9QlAV7dJ2FzLNQ6RLlmFQR xzgRGp13fqhJgWNGgqCLbqcOoUNSsnbJbFl5jFCKkfRcjsKEfLKCkp7IksTdqzw9lwXCdRWSkydlnZPO 9 Disclaimer m2aitGEfTSLenEFtKxBsRREbMJMta7liXUYamMLbWaEpAtKgDbIsJyzbwTQhDFQhLgXli4kqu210ySSl e8jhCGUsXsQ3rCHjPNVnwAVzF896KMHwAVrlu1scd2EpDZFjlIJxm6Y2JUJCifkazWl7gEkgJ76fb0A6 JwqiB5joWYWpIFBvU4RsZT7cLCYqCtw9PIU2EKJ9FEF (test code vRCZcI4SoKD8dLITryGZoVOc0x3cppVblPKIhUGA8h4seUXjedyVjSF3acs0plRz0c9drvoZfKFJmHPK teEUIPDRpV4LlhOhdAu7kkJr7zHokZrgmHYL8Hxh4VK6ydn07ika2oUrjSALzeycmKwR0ZLlcMGBiiwt pWMb7WJciWHBaaKV5BKLjfMLvE7DqOFAuDN2bzzu0TA = 9844) V5WQpaSXQtVoJ6IKOxkBPlYXZjvJltZMvsv405BSU0YlTwYT1rK1Pbv6V8dA5ckLTyXMQopAXqEyJsYV Kuff8ulTSaKFelk4EbJXH5lzK6bJHtrPBiSENmIP32Mzqtv7ItDevqADP5YDOwmbQuy4Cwe7ejKhVasv AxV1kjN3BqPDDhXIJxQCReZvOdvxNyr0Tpm4XtgOFoi Vz0x4mpBNUxHZDcfDfdq2ykCAJ4ECDiK1P4dTCso5hcZDqiGTIeeLX6qnO6CUKeoRRiG5LpfS4gXVMyZ B2iqqb7l1tcAQF9EEztCURuYuW9rvZ8EQEwdNKdGLFmjNvhZOrfg505PJF2DgNlNBHqv8MbF0VwtWnvP 10ggOrhN34uCIYetYsyaH5ppXqjpC5iHsOjKmHmZXuh wDwqkGYoaxtrOAjqvaS3UDglmmjyDFJoSOqaH7iqThRoCBRqiSlkSSxko2XhDCLaZBAbOxdjaaA7EJTX k15oUULrn9PmUIAxeO7mtSQsQScplhUobEQ2NJgiziDsGzVjgmInNEEraD7mZSWhYD7zJSOnlxAfpx5u tkGxPXYqRJSzD6DpkwgmwDsvjfFeCYYhvs2gaoOeNPH 7HNLGDL2WHLHaFYXoa64bDBWpyJhuhE5sxXKgcxPiANZod8RstW0lkJEQRYQpU7mzTD8zQLddq8JgpTI jpYCmmQP4RLUwk8OjWiUdbjTwiPFnzKKeR4JjrCowL4yyUTTgAFVxrfWrbEPuk3JjXUVupXZ5rFJjNE7 MLaPHt71fESPeDSYDiySvHXIqsSqhmMW5jaK7nF0hTd YFPmIvoRRrvDAhIrcoZDOvg770jc7jfuI6WPHaWNOanokdu4SkGVGmBQCjlV87KEElFSUmcz2ucbefyZ TlbvOvD0Elqfm5hR0jZVHvZCbgWGQfDXRwNyDzrMUoOeFyRaVtrAqkeCodKOyaXnDaRZKaPLhwN5jdUb FcZnMyMlxwYXJ9 [facility] Interpretation 2022-03-26 23:58:33 Test Item Value Reference Range Interpretation Comments Materials Received (test i8klsJJuPEDrwDAkAyDk code = 9973) ZWNyZGCjy8bsCSBqzHGd ZzEwMzNcZnRuYmpcdWMx CNGaIpMlb6mxy958mUUq o6cfATHrMdQ4rBCuBNSe fQZtM275OQLoUCxxv2mk k7GrBOLnzWQrx8T6SGXD xznctQd1hGcgC83xe2Q1 TwajS1juUPLhKGXzU7Mn BT1kJTKgKeq0GKY1PRE6 MXUpZWQfR9FwBC6vAHDj oFDeXIr6w9lumSdxXHVm YST8g8ycQWsmwiTwCZ8a yn4dqGs7y6vxhdYjETDg SWTniNAXUIUaO3KudFyd Gy6ddXs6bPjnFzxxHPH7 Nsa4PS4jya56ldr8qUwu DVZzeskmFtG2MUalFHVz xopaJVr9WWogTGZdwFqp MFxtYXJncjcyMFxtYXJn fJT0NZVayDLiK0IpIRGw HAusODTrwdv2GiKgDs0m iBMafHroMBqyc1ywu3pf jCUaVfn6WBHfCaZsFdji MUodf1Lyq8trERKxfp5v ZZJ7sSKrfNfna2M6lGTd DLSojFAtmkFxSUQexl10 uTBycTKrpYVftv7emgMh kZSsrNLkDWN8tDWvzaAu FQGpcVSdKJAiOD1arPBx LXRrsF6lsuflJFMiPvWp obdnCNVrzUpkhuViNs0s sLvuPGK8DSdrA1znoS0o UmN9UYugO2ofnU2qUWb9 MDvyeRB5GKCicT3nIU6a wxezb6irCoApBQ3vukxm m4goOgBgRW2owsu6a0jv VKP6SJyrFDKyAdV9mlX3 NDBcaGVhZGVyeTcyMFxm c369LJS1VjTzTRBvx0Wv P9NdsBflT80cgZgxH71w TSLxrFgtoI3jrVhmrS5u NzDvGgXyVYm3qv03DXz8 ztyvpMvqEUg0wfDhJCWf ULB0LUOgdTDuBIDwI3o0 kvUeOYStRNH4YWVeyVPw MFFyN9z0zwOqKCX3QAc5 cnBhZGRmdDNcdHJwYWRk YjBcdHJwYWRkZmIzXHRy pNOujLOucNReyN4pwDvp GNSncXIogC7hTPI9ZMXs cmgzMjBcdHJoZHJcbHRy zb44XNUnttYjqTZfaUzk wGZiKKS7CBRgWMCxGZGm ZBK1IDMsSkMjsbAcKHfo bGJyZHJiXGJyZHJzXGJy YMU7DNPxLnQptyNhPNwo bGJyZHJsXGJyZHJzXGJy NDC8COReSsAfecKoEBnp bGJyZHJyXGJyZHJzXGJy KTQ6VBMpLyKssiHjVIrs bHBhZHQxMFxjbHBhZGZ0 R1gdzIPyGZGxOLupvSNi EIIeP8tqwNQhEKtsOWWc cGFkZmwzXGNscGFkYjBc T1bsCTAdZbGcR6VknSj3 MDAwXGNsdmVydGFsdFxj kVEfUTS9LGXeIRZkFUDv WBD3LKUaNcRcjoEkEGdg bGJyZHJiXGJyZHJzXGJy KQP8FHEiLdOooiTwCFal bGJyZHJsXGJyZHJzXGJy USY4JNGnClZxqxMyENjp bGJyZHJyXGJyZHJzXGJy KXP1YYInTmZsjqJgAEqb bHBhZHQxMFxjbHBhZGZ0 F8gjaDSiWXTzMCbbbVUb LYAaK3wiqROsNIckVHWo cGFkZmwzXGNscGFkYjBc O7igUPHlGdWcO1IepLr1 NjAwXGNsdmVydGFsdFxj gHEuCPF8PERdRFHkKPNm DCE4FJWrEwBozcKgZLfr bGJyZHJiXGJyZHJzXGJy BGW3OLWkFxYzweEdTNqj bGJyZHJsXGJyZHJzXGJy LIP8UWTqHnKxihRkNSnk bGJyZHJyXGJyZHJzXGJy TNP3ADNaPtDcicQhWLpi bHBhZHQxMFxjbHBhZGZ0 U5hulMRuYNGgWXxgjBLc QQIkS4kodNZkGAzzTRTj cGFkZmwzXGNscGFkYjBc I6nwBVUqBlWqM2UxqGb3 VlWxTNXgbcFmfV53Wwxt m4KlBUXxDGC8KRvhXVcr bFxwbGFpblxmMVxmczIw IDzmhgaoPQJkRAcmD0hu DoBmXVTiqSjhQXayb8Gr XGYxXGNmMlxmczIwXGIg YRPjWDYfxU4tKqvuR4Eo vR6cDXimQxilP9unMLBw v8CxeN8xKZnctOLiftty MVxmczIwXGxhbmcxMDMz UNltK5kiDnWvOGScpRcd XPblj4MpRYRkOYPvVhhg soQhJNp1qfUrZCLmuUmp tFBzEBtxwpXqjUmcz1Kx wiBhfUhaXHRvKJz1icLe mfmlfUy9fBZhmWvpEZGb tYleqF1gRgPfWvHuMZql bGFpblxmMVxmczIwXGxh gmlbGIOpKGxdJ0lgWfIl DHQjjUmlZWhqu7DnASIh BKUjTgjtzoTxHZXyM51y bGVjdGVkXHBsYWluXGYx XGZzMjBcbGFuZzEwMzNc aGljaFxmMVxkYmNoXGYx INvkZ7cjSrRyN6NfJMOh TwEmcJGsL8oiT3BqfLol YXJkXGludGJsXHNzcGFy XPT7fCAawxQhpHCthJOq EXPdMMxeZZL1lCYjtqor uSZlktyrAKzgotC2RTXt YWluXGYxXGZzMjBcbGFu ZzEwMzNcaGljaFxmMVxk NbYgLDMxENedO6beGaHw P9HdEJMuOlMmImRGSPBt aXZlZFxwbGFpblxmMVxm czIwXGxhbmcxMDMzXGhp N4tdDpPpQAZiuQbrVPid e1KoWIUgDQWnVlbpwbQf DPn9zoQkUXCxwNxsaP85 Gjjqpi37BACto6lgCDGh I0OlvTXqKORuaZOjVOpb MDhcdHJwYWRkZmwzXHRy cGFkZHIxMDhcdHJwYWRk ZnIzXHRycGFkZHQwXHRy oSJzOZF7M0f3klXeAKEy IWa1ocLlDGMbJpMutUBg VDH2LWq4TylpywE6vZVk H1l4LlinrtSoJLaieGPt fw04BKSuywGzbOEmhPgy pXEgITY1CWPeTVVgJAVz CAT3GVIeHyNtdxZoZBim bGJyZHJiXGJyZHJzXGJy QKH4WABcGaLtzyMiDYkf bGJyZHJsXGJyZHJzXGJy ZNA3WRGwCrHyqzKcJWfi bGJyZHJyXGJyZHJzXGJy STC3WVNdBgOrkpGzSYbe bHBhZHQxMFxjbHBhZGZ0 A6towJWsIDTdXAcypOYq VXJlO5kusZWoHBpiAZMp cGFkZmwzXGNscGFkYjBc S5qqEFDqTmIqE5QgzWh1 MDAwXGNsdmVydGFsdFxj yOZiJEW7UWLdLUBoUYQo CWQ2GDGiFfNkjbPdVVuu bGJyZHJiXGJyZHJzXGJy FNT1WVUsZxLwcbTxINhr bGJyZHJsXGJyZHJzXGJy QAQ5NEQfNsPxyxHwWMzg bGJyZHJyXGJyZHJzXGJy CMU2VXPpLeWpmeLlEMft bHBhZHQxMFxjbHBhZGZ0 Q3xuoEKyBJHgXNqiwGGh UZGuQ7aunNXiZWmzIPIn cGFkZmwzXGNscGFkYjBc Z1uuXKYaPzDtZ7UjmAh2 NjAwXGNsdmVydGFsdFxj dCAsUDE5NHYlCPRkDBUk VDE2GTLmRdChypMyKUuq bGJyZHJiXGJyZHJzXGJy DFM1KQNeJtIzzfGhPOie bGJyZHJsXGJyZHJzXGJy FNM8PHRsMuIzorDgCYvl bGJyZHJyXGJyZHJzXGJy ALK1GUYsLhBllaDgBSic bHBhZHQxMFxjbHBhZGZ0 H9lwbBBaFMUrRGmvxULr LDFeB0qpcTJaFWsbEVXa cGFkZmwzXGNscGFkYjBc D6pyZHFgUiQvT2VkfBv2 JaCqMNJeomBkvH25Htxv v1OeARBlCQU8UYsqVArt bFxwbGFpblxmMFxmczI0 XHBsYWluXGYxXGZzMjBc bGFuZzEwMzNcaGljaFxm WQwyBmXbHLUgYPsjC3bl BwEbL3NqGTXlNwJiTI4k H3DiAwBtMoj7HHtdSLJ8 LBGGDHDcFTQIY4SMBeyp GWOJT2KvjMhltQ8bEkJx IkFuDIflHV0uFEXnA3wl vFUlFFPiGIIdZ9euIySp pD3vzYgzHMmpEeHcLnVp MFxsdHJjaFxjZWxsXHBh emMbdI58Ksyfr1OgMRFa UHM1KFcnLXwayChwbWPk edndGLejbcU8AUDwYLif XGYxXGZzMjBcbGFuZzEw MzNcaGljaFxmMVxkYmNo WERrESpjN0lbDtZuM3Dv MIGzNeYmKTBhPy4iUJHg XHBsYWluXGYxXGZzMjBc bGFuZzEwMzNcaGljaFxm FKcqTcNvSUOfMNlkA4ke QgCcE5TiWVPdHeMhySYo T8ijS4AagIdiIDIpIPcs lPGaNANmmCYzBUD3cFDu ukPiyRpntUszxM2lFoEp ZnMyNFxwbGFpblxmMVxm czIwXGxhbmcxMDMzXGhp C6rzAqWbPJIxsFwjPQih p3UbQTBzFWShFgrnbvHp IDUvMTEvMjAyMlxwbGFp blxmMVxmczIwXGxhbmcx INGhZYihQ4ixAuUxCGFl rAvtHDcwo4XpTPRiQUGh UivostUxKNu3fbKiMYYn zZetoW17Rwkqsy34GYMx riKdx8MlAHYbASD0HNdw MFxxbFxwbGFpblxmMFxm ngZ7UAObYTnqFBTaSQAa MjBcbGFuZzEwMzNcaGlj aFxmMVxkYmNoXGYxXGxv T3ilCcGcOcZjQUtiFOS8 Addendum 1 (test code = n6oenEGrAKEkhDD3QiGr 37) ZWVmm5fkv8OftICkzKBi IZfyvRUvdnCysu76qEN1 kY51FU7rGMGbZvO4WGEq oqF0Mll0NPYoRGWadFSt U624l4vju4kjhgSdoQV2 JXTmJXTmA0LwXZ2uQLQl dPBqV73xhROnACP4SCLa DSAwzYRdWXLoFWU4NCEk vIKbS8yhSNXyCX9colcv ZAavEYxlENGyuOH0ZEIa cVNhL1FkQWDpIBhqBQZn nxr9GfNyYt6wrDOxjViz MFxwYXJkXHBsYWluXGZz XfLiX0DkCE90bSXhFXQs FONVOCClASH4VDb4CTEm VTXYHozvOAIULM8OQ8Nx ZFKaYKKDFRXjm6idWOA7 MTRiu59gCMQqEg5kJKSr KTpccGFyXGNmMFxwYXJc xPc2YuHhiPjkYcCgWDGl ALARnIKketmopx2mpTkj wpvuv8HwP3MgMezxcGI7 IHgyOlxwYXJcbGkyMTYw SKHeHZamMNlmrD3dCRDh IEJpbGUgZHVjdCBhZGVu b43buqpvTA7zVGHvknEy YG8fLJYwYABeujJPshTi VIapE85qcuX5OYpsBI36 aWZpZWQuXHBhclxwYXJc cGFyZFxwYXJ9 Diagnosis (test code = a2gpqDNfIZWkqAE9HdOl 34) SOJim1das9RahNJqrNCe RNixsKIutjDtos44sHK4 bF24UD0vFIHmAbX9OMFb xzM0Ovc2TYImQDHttFKp U564d2kzq1vatyDxgKN2 NAXnPCQkK3YjSY8gEIQw yVLaA89ltOCrJHD5RMSp DJQdiCXnHENzZES6XXGj gODnX2xdEQFsUQ7fvfpz WGgbGNiwRWBldBX7UHHh mTDjV3TgWBYzIUkeRXQu smp7OgUsSg5jlVJasNda MFxwYXJkXHBsYWluXGZz UaFwT5GlUP80zLYiOKDv NGALFEPaEBU3ZTu0IWNe NEEAFdqmEVZWRW5EE1Hm YBHmKWYJMYVlf4teKXB2 JDRjt77bGGVqEq2wEFYa KTpccGFyXGNmMFxwYXJc zFa5IcXuoOgdZvSoIWBx PKuabxGzrH2pe4w8mPCk QGEnlpMeziiyVN0to9Fp RQUaT67prlTqsFPlPVXr Y2Azu480VBVvdapuaKDy NjBcZmktNzIwXGxpbjIx OxSyStGecGowDCF7wt2d YHjlFhlrbx4rpAPmbHxd bGluaXphdGlvbiBhbmQg orBzK3DaCNUceURufCui ZXJhdGlvbiBpbnZvbHZp uedfzICcAS53OHAcGtWg IIAgSZ3zYVGmi4JlEXLs cy5oML5oLKEqGNBnn17b OZ33HOOtFWzqGAGwNBNv v9Jbf9n9NXVaUfNyK11r KFBlciBvdXRzaWRlIHJl aO9dhOiyvETfHG4cHAFj xZ4poZCeb2DyTCBnjzZ7 zS8caqCrlkVpED00ZJtw LzEpLlxwYXIgUmVzZWN0 mJ0jMI8utpxecdCcBULn AQEcy0EofBIfx8QkXXOw wxDNoaOayMLlk2DoqDLn v54feFbhWx08SFczzBLk l3AoVrqyDNBmjOJqVUrl MrPxNXFgKSxgzQ87LhYx Dr7vRFOlSC49GNU5JFNi nU7kg1m5RKRvutk8LNZq SHlhbGluaXplZCBzdHJv kLAlTTZrp7tfMoXcSLUx x67mDZznUXZvP18ygRZa dCAjMilccGFyXHBhciBD RqOYeMCpncsztu9lcXkg koeje2NuK3NeGjrakAR6 IHgyOlxwYXJcdGFiIFRv KHMoQLWoX57uLYFacMPt PilcV4grjVC5yL0dt5o1 HHbduZEcj0Ndd9MkETIp PQGaCFPzIEJbfU4tkFbs XHBhclxwYXJccGFyXHBh cmRccGFyfQ== Comment (test code = r4puqSEfABOjmPU8BrSb 9835) AEGku8pjt0NwnLQmjTLv DVzczMYgcrGujy80aFG7 lV30VD1uZAWjGkK2TYIu dcQ8Jqw1MIZzDTNcxPKi J619t1msa7inicBiyBF2 gPgfMZTahdlmHkD5AHlv DXYhbmfwVAg4QNykHPEw nXJ0ZMCuxDZjL6IwQHJf XL2hbig7IUI7MQoxYWLk InC1ZCGweUMuTONldRcw JWeep567EWO0IxXuECJh mvFphAalzR5kBpIiINMf MHqWcHBzyJU2YVNwsZ6p sO4ufCshrH4ewEZueZLv hNVkaQJwelXcf8wofxN0 oHO1KXMrZIKgjITueTCb IGNvbXBvbmVudCBpcyBu XMzwpWt8WKYdx3MvPbH3 FC0bOFXmsqzyQXgmsMMf AACdJWH4yZAqy6Ilk98d XQSALkmeSDQHZPM7FSFg KQZsfB6xQXPey682mVXl wTPeoJGvVNP3tH1yFVBV SzEsIFNPWDEwLCBmYWN0 j1GhEvfAOWTaEQCuwqAd R8QrEyGnNGJXDAG5AVwx X3ibhFeayQLqbsOnE7Ou VVYrU0ywwu5jfYDsIMFk kMQiERKgirOWdXHtu0Yy bwXwnNCdmQ6ddY3jtzGs brUruNavg5Fdk2LvNBFk VA3nM31qpLFvE1Wcqoko WyA6BGd0DYhbJRNtJCkf CE7bpY5qAWYnJOAgMDQw dAG6DfZCdRKaYEtiVaHb GY95vWFjZNZcGTaiu9Nf cyBpbmNsdWRlcyBhIHJl DRC9cXXwQH7bHOOsdpft fiAwjHDng4BdVDC3wIOq aBHbC0YjbeRszfOoHAFy VS3bW38ivqQlR3FrFOBg vRPkbB2hSNQ2H8qpHTBx FP5rGEB9BAHlc8Qhmk43 szIqPVker9YtKOTil28o TzDzEX4mcxsfk58pQBor nRzimyEjW6NdpmKzJ4qu clmppt9fYLGnvcgdIQEo UcN3ZBZ9Mc8myCKeMVAz hX10pv1vmOQ3t6CbPO5g H3YkIYU7DYauVGCflnZR z27qqoGlJYGbjJQampYq ZITduoGrVc6hJMNjuSlw vTTqNRSpa3PxnZrcxc8t cGFyXHBhclxwYXJ9 Disclaimer (test code = b6tmjMYaZNXpqKMrCfDq 9844) OAGqSUPyd2alWTUkqLVm ZzEwMzNcZnRuYmpcdWMx DLTmSvJwb8czt969kARh u9wcCUEqYnT1sOLsNLPn tVEaN797CBRuEDyqg7gp f2VvCMHjzRNsx9H6HGUS uoxilNz7oOuyA81bj6O0 QvpoX0yiAGXjWOYwB3Uz WR8fIIVzSmm6TFE3JZK7 BJOsGXVlD0BpEH0kLWEx nQOzLFk3w7bmfQquNCKe KXC9k2wpDIugzyJfFT1s df9lkWj2e0pvkfPrIXYz GFZltBYWDDEpM9MacKyb Fb1qgMu0wDebKlacOEH8 Jaf4IJ9ypd74gya9cSdl AJLblcqtOiI1AWkuQYPr qcwcYFr5IHjkJSJaxKR9 IQCdtDJhP4JvWLEsEQ4e wtq8LRD7WXhwZXYoMmN6 NDBcaGVhZGVyeTcyMFxm o649NGD0LlUdMY7uU9At h3F3sQ3gaTNmSFUqsAPj IpPgLYZgbh8klTIoCRdf b0OgOFS6ejB0eTOnjBEt DHTtPI71Hfuto4WtAyng NHI8FBSlyjDic6Grh2vk GmFqtvLbR1jcJ9MsCZMe QHQvFFZyBtBgwlHfp7Op b5YrdTAexPa3c8gwXLSo FNBmvRmrc9tpAHD9KEUr S2G6kSUvn3klNVpjIAPh oWE3rdA9GOFsaACkU4Yt xD9tECNpGP1apyu3v5lx OML3LCcnEVKgYdK1geP5 NDBcaGVhZGVyeTcyMFxm d353UBA7LmWhWHDac4Cm P1JyzIplU23ckAovL80j JPLvkXwbwV4xdPoycW6o ZjBcZnMyNFxxbFxwbGFp oyhbEWqgpwD6SBxicqmc SCLqYIjmE9phYkUwPTRc xNysOMgxi1XwMMHbNXVv BrbwlrP8KLLHh95iBGKs z9XkFFSaiB2wqIBaOYgj gcCvjPK7KUbzzuLoJbCr buQmHGKyzC4eYVBmRY5x VCFfxnOxxm1mwgWjRVYs JMUbT1EvclbemFhuagAv ZGVvkf6uulGfSOP7ZOTB UD0UZCJvESZjf97hEUGg hMpvzI9gxGHqnvQuFPMy n9PnjY8xxLRBJAJsK6xj GQ1fLZcoe7YebXDynGAs dSM1GQZft1MwLuSlqnZe eXNdpXFxV3CltTgqH1sa DGAeKZNoygOriIUvz8Mh XJXhdZO6rBTpFW5DAtOH j01mEWFhRXOMqpFzQTGs bUrwfJN6hsJ3aA9uGhXH ZiBhcHBsaWNhYmxlLCBj p491pg8rjxB6IPVxSNVc xizwl7UqPPBsNMUowN25 HDRaGAEsrl7nwpxoiJMr xvAeY9Hasek5kC7zYWXi YWluXGYxXGZzMjJcbGFu ZzEwMzNcaGljaFxmMVxk QoSqBQHlMEkyC8ycFmFu ZnMyMlxwYXJ9 [facility] Interpretation 2022-03-26 23:58:33 Test Item Value Reference Range Interpretation Comments Materials Received (test j8popUWfZDZdvFFbKgVu code = 9973) EYKmZEHme2wiFWWaxIPi ZzEwMzNcZnRuYmpcdWMx JYGuZbKxy9cpz142jFPg o8agJCEnSwT7lCJhDIMc cRKrZ666BEPaJTouz5zp m9MqZTSkvLHus1Q1QMMW qhgqdBp6wRceV05tx0Z5 YazvV8ymBLEiNOFiA2Rp ZQ4vCYPbOle6SXL6ZXI3 SJVlJMLzM0VlKC9oPSTw wBOcQHx1a1vsfTboWYRi ZHO9o0lpHCyufxEgNE5h ju6yrRw6u0wjinTfCXGm NKUvzOBBNFJwU4NghGae Qg0yjSn2cCctUhhaGLO2 Nyv8YU4ohg76nzy6fPgp MVAmqfciMhZ8ZKcyGTFb zenyVNc6WQdaDKDzgFel MFxtYXJncjcyMFxtYXJn nLL4YCVvfCBvG7KnMQIq HTztCWPuooz5MuJoKa6m lULiwFqaKAlll0sai0pg gNBqTqx6NYLtSuCcFzrl IOpjv0Ysj5qhWYKyad3d CGH2wTHniBoqx6J8jUTv ZHDxdKZtuxXzJNElxq51 eFKvaPXqgTFahm9ggkPg eNTteQVwTBH6dBNefnEf FTKxeQRiXSAsIK2sqWTs GIArpS3wqlfvTAKdLgDn sfavLUHcsSgrdgLkIf3t fUokPYI9CKibC9rjuX9r FgW6XPddG9nsxV5wQAa8 EZmcsMV4TIJoqO4jWL1m mnvqm1lsZrKaFO6evlua u5dvSmGcBB3ppfe5d6wq CIC2ITdhNYMqIvP1tnH6 NDBcaGVhZGVyeTcyMFxm a892LAE5RkThAFQlz3Eb L6PerMysW06krYgwE18j TVOoeRidiB7zgXzcdQ9e TaKcEgLzOWh9ko17NCd1 chwuoOeiSJd8pdLnJVRb MIY3PBKmwJNeIUNsF0s5 lqYxLRZvQMA8YYZqkSCt IWGrX4h5vuGsABZ7JKe3 cnBhZGRmdDNcdHJwYWRk YjBcdHJwYWRkZmIzXHRy kFBvyJTpzZOgwI5rwVij LIVezMAvsK1oHEV0GRDk cmgzMjBcdHJoZHJcbHRy rt75SMTtqrJroVXnaQxd aYZxKCV5UPLcATSuNCRu PAD0KZJsJvDnlkYgAMek bGJyZHJiXGJyZHJzXGJy QEH8FDTyXuVjktIiMXms bGJyZHJsXGJyZHJzXGJy YPV6QZLwRiVwetOhQPpt bGJyZHJyXGJyZHJzXGJy BXO2NGKnYbCfocVnAQns bHBhZHQxMFxjbHBhZGZ0 O4lfsRWyRBBtDUvqqLLw BNAdF7lolLXkCDaxSAOe cGFkZmwzXGNscGFkYjBc O6rcCWElZdFxS0NeqMj7 MDAwXGNsdmVydGFsdFxj tBBdGAX3GTZaOOGvCUXm ADE5ZOSiEwImgxUpWCaq bGJyZHJiXGJyZHJzXGJy PAS3GTIzQgNtmtKsGRic bGJyZHJsXGJyZHJzXGJy FYT7MNWmRzRsfwVsZGnj bGJyZHJyXGJyZHJzXGJy CIE7XTUzNxIxpkBcZLmv bHBhZHQxMFxjbHBhZGZ0 W3ykzNAcFJAgTYtnpWHp VWPeX1ouzYAyHOoyHZXg cGFkZmwzXGNscGFkYjBc P3imLCWwJhRsX0SewKc3 NjAwXGNsdmVydGFsdFxj kAScKCW8GRHaKTDzJSUb RPZ5TAKqIvAqaxFvKQsn bGJyZHJiXGJyZHJzXGJy YJO5WUBeBxLaxaYhDZkn bGJyZHJsXGJyZHJzXGJy FTU7MFLmFxBwetXzUOhs bGJyZHJyXGJyZHJzXGJy SPA9EBIvSsMpxwBtBVva bHBhZHQxMFxjbHBhZGZ0 I7rysPPlDCByURylpLUu EHJnD0tjbUXfIHmoEWFj cGFkZmwzXGNscGFkYjBc T9hcBFQsKvImD9SjlEe7 SlGiKARxhwEhqH55Ymzu g6WwAIEpTUF8YGnkZIcp bFxwbGFpblxmMVxmczIw ERxlamluGIVaCNmnY4cd YlZdLDRrhDwcNRaqi9Gh XGYxXGNmMlxmczIwXGIg FCFaKEVhqD0vCszxH7Ph pZ4vRTzgDzryH2xpKOTf v9YxvY8xSXngpJZjtxav MVxmczIwXGxhbmcxMDMz QPgyP6frSyKzCDGetUmn WBdcv1YmMSZqJBNnHmwo pdSrQZi8kiXiEDYbbGxp gRMgTVaavpZccWgor7Bc jaCaeUafAVLdOXu2mpAm oohxePk1aPLpaPnmPXGe zColwU0aNuHfMbVkTSxs bGFpblxmMVxmczIwXGxh eodbPCFoZFfdF4ozPaUr KCPpyHodUFijn9YsYRHt ELPaYzeudxAeJKTaD72d bGVjdGVkXHBsYWluXGYx XGZzMjBcbGFuZzEwMzNc aGljaFxmMVxkYmNoXGYx FFgdZ7bqKdLrH4UmCISf IaIipPOmU8mrH5DbfIyv YXJkXGludGJsXHNzcGFy OBT3pSHoqeVzhYObfLWu FBZxQSovKVE9qDHgtzdd yAYwbdytLHnoheH2CLYx YWluXGYxXGZzMjBcbGFu ZzEwMzNcaGljaFxmMVxk QyXnQDPbSOmqE0oyUdKt V3LbYHFmZjDrTfSXNMPa aXZlZFxwbGFpblxmMVxm czIwXGxhbmcxMDMzXGhp W5ebRmBjUAErbHkbJFnm y9UzQTRhXLRmQbaqzrJt CVp2wrGgWOXuiUcmqK74 Reohbw64FDRjj8tpNDPn J2HvbFKhCXIreDWmKBsf MDhcdHJwYWRkZmwzXHRy cGFkZHIxMDhcdHJwYWRk ZnIzXHRycGFkZHQwXHRy iZVoWWC1G0k0qkEfMTRb JUl2rhRlXQIaAfAwfQEo SMX2GWa2CscsvpP7eTLw D0y4UylwxlJrOSisyLEs tx51UGFcmdJxzPYkbFji nNNbDJI0OZXlZGPlSMTm IZR5JXIhMsJlmkYySWsw bGJyZHJiXGJyZHJzXGJy HAZ4YJFqSmObgqBvXVsg bGJyZHJsXGJyZHJzXGJy RWW2UJApWjLvxoStZKzc bGJyZHJyXGJyZHJzXGJy RFN8MNIxFtPxzcUwFSul bHBhZHQxMFxjbHBhZGZ0 R8bquGNhNLIbWPtrpCGx JPCuT9przRVkTTziPEAc cGFkZmwzXGNscGFkYjBc I0mgSLAjStJvL3TdrEl7 MDAwXGNsdmVydGFsdFxj xVUtZMN9XJCnDGJaXUZz TDA5IEPhRrBztjUpWTit bGJyZHJiXGJyZHJzXGJy EBL2VELyTuNdvoTsMXls bGJyZHJsXGJyZHJzXGJy IMX2MWJbPpRvjfKuYDjd bGJyZHJyXGJyZHJzXGJy EFQ2TQExYaZnbxMlGMaa bHBhZHQxMFxjbHBhZGZ0 X6nwcSLaVAIvFQlgqJKg PIQsE6aefQFjKTydNZCr cGFkZmwzXGNscGFkYjBc U3huPWYyZqKmL3ZaxBy6 NjAwXGNsdmVydGFsdFxj cUNqUTV9ULNwIGXsJOFf OLX9FDFjSsWcwpZeKTcg bGJyZHJiXGJyZHJzXGJy OLF0WKAuAtGmuuSqJYxk bGJyZHJsXGJyZHJzXGJy PZW9ENBdObAkriUbHDra bGJyZHJyXGJyZHJzXGJy CWD7LBTwDwNmfqPaZYnb bHBhZHQxMFxjbHBhZGZ0 P8sfsQHqJJVgRFasiVPh EEBaK9pylUGcEHlhFHAh cGFkZmwzXGNscGFkYjBc R3nlJSIhVrYiV1MakQt7 WfNeZBDludUkrS85Szhp n5EmLYAuPED4LLtbBLva bFxwbGFpblxmMFxmczI0 XHBsYWluXGYxXGZzMjBc bGFuZzEwMzNcaGljaFxm WInaFdInTCFwKFvaH3jf VoOmL3TrLWClEiCbYG0d T1HoJdJrIwe0SYobXSY9 SLKORILmJHPLL5DDGkru JGDBF5IbhJutnL7hIsQa TkOaEHjdTD0eNVYoZ3gu kGPfDUSaIGSeH7btAqSi kH9gvWiiJYbuUxJwMqFy MFxsdHJjaFxjZWxsXHBh voDuiG73Cgoxb9OmVBEj NPX3OHsxWIxfhXsblWYp mfzuNHbwimQ0HDZuTUaq XGYxXGZzMjBcbGFuZzEw MzNcaGljaFxmMVxkYmNo GFLuXBghA7cpJcTnC6Rs NMYvSoVeDPFlZd6jTXId XHBsYWluXGYxXGZzMjBc bGFuZzEwMzNcaGljaFxm IUvrRoOwXJOpNQulQ9yf KjVeJ9XoKXWyHeZckGCi Z0ofJ8QzmCvaILDxXUkj sONnDTQfaWKvSBE5kELw sdTlwCtrqJzzjA8jIsKl ZnMyNFxwbGFpblxmMVxm czIwXGxhbmcxMDMzXGhp R6tvUvRaXOFwxAqdXSkd i3GvERZbOJInPebomnOj IDUvMTEvMjAyMlxwbGFp blxmMVxmczIwXGxhbmcx YTXdHJycY5yiCoSoJGSp jTmiJUewi6YjKTNaUMMx ZllbimNoVJc2ltVxNRMz vMconE85Wnhsaz18NDUz gzSxp7PtYHAyKBR7PLxq MFxxbFxwbGFpblxmMFxm wtU1CXZtKJfjEOKeSKJu MjBcbGFuZzEwMzNcaGlj aFxmMVxkYmNoXGYxXGxv R8ymBjOoMxTcIFzeUGD5 Addendum 1 (test code = b9sokHUqADPprEL4EmAb 37) QNQbm2jjl9WjcDPemDAl UZgzkKNojlNhja11wPM8 dW74VQ2yLBTlLtJ5USLe whK6Vzn3UNPbNDZlnWTz S666w7heq2bpvbMlpYF3 YMGyANEuC5CuIW3xHBGb gAOlL55tdZUzTUB0YHBx IJMtgOTmTZTeGXE7TXYm yJJrH3soHHKyZV2vtkfv UKwoZVlnPHLdzGL8WXVy xFBtM3UjTWYiCIubONTj wfz9ZhCiZu4jiCExxOpo MFxwYXJkXHBsYWluXGZz KmByC4JiSA03bBWlZCCv GCCWJBIaRMV7YJu6YOFf ESYUJohyEUUDXH1MB6Ue OHXoEYURNBHej3klWKQ8 XPBel00eSWDnSz5qCXMr KTpccGFyXGNmMFxwYXJc hIx4XaBgnEkqRiKgGOHw BYXToYHywokftr3ccSby wehqx0EnJ4LeLqxcqJM9 IHgyOlxwYXJcbGkyMTYw WNOaPQuwRNuaeV4xJKGd IEJpbGUgZHVjdCBhZGVu p27kffgzKX0lCWRylaDq QC7sFDBwZKVtixBQzoLm FQttX56mdeP2RSeuQE11 aWZpZWQuXHBhclxwYXJc cGFyZFxwYXJ9 Diagnosis (test code = y4scxJVwAZNgxNW5SdZi 34) NHKle6cxp5YouHYloIPl ZJgaoBXnqgDtxm12bHM2 sL52PO1jMJTfLpE5TSWb tyP8Bhf4RRCgSDPztIBi I328k2xsl1pqnrBsuDC1 CXUwHQLiW8MiMJ8tJVFo rYUuJ43xcAWsHIH3QUTv HCNmfDLdFSZxSNP8YZHf uNPkG3oeDSHeIU5nfmku CNxeUVeuLVIzbMR6INOg pCGkI3PrJLTvMVzjPYNv vkb4TwGlNi5vfXJogAaq MFxwYXJkXHBsYWluXGZz GmHnN6KmGW74hJPrVAOe ENGQQHUsCJR3EBc7MBZd RCZFUkdaNHIRCP1IQ9Xk RYRmSAJJMBDtx1ppSGP5 MIYuo32iHGAaNj8yNLAg KTpccGFyXGNmMFxwYXJc nQf9QfPraAwaDxSyNRId RXekbpFbyP5wo8i6eHDu MGIeisLsjawrHM4km1Gp XRIvJ69cxuLihVWcEKUr P9Hqt625VNEmwdeixFJo NjBcZmktNzIwXGxpbjIx IcRgToGlpQjaGXR4lx5m SXorHfdfbc4hgAVhbExm bGluaXphdGlvbiBhbmQg tcAnJ9MmIDMqoGXzbSap ZXJhdGlvbiBpbnZvbHZp kgibcIByAH69EKBfHdZc RWLpAY8jCFXcg1WwTJPm at3cKX5oUPOsHACak34j DS15NWMfRIcxTYGiCQRp y6Jnz4z8SXQvOdMzX82j KFBlciBvdXRzaWRlIHJl wQ1jaThnjHDbFB4tRIMf mK4asWDrd2GeVFCeeuU4 fF4lbzEcipZqSS09BXpb LzEpLlxwYXIgUmVzZWN0 hI4oIZ3uxwrtmtZfFUHf ASBxb6ArlWGrf9GiXVGl kzCGgpHjqFUxt2RvcRTy w48okFvmEf69UYcyyKYm r8NxAuwhQLJkkPUnJFkg XkSgQFQyLRgrwK36FaWa Yf7vZHXqGN19SRY5YNWl eV4cd2p1CLUwcbi7TGHk SHlhbGluaXplZCBzdHJv oZQvOIYtk5yrLyTdNZTh u10hQAbrTBOsV03vcUFk dCAjMilccGFyXHBhciBD OgFKeDAkwsmsqs1vlFxy dudfv7XtH9XmIursrMW4 IHgyOlxwYXJcdGFiIFRv HWKfCTObA58xXVFgkRRk RctmQ8icqZR3bM3cl9f5 LLmyeWSlo3Gtd8CiOBRc XRHcGQCoUAAwfR2zkOtw XHBhclxwYXJccGFyXHBh cmRccGFyfQ== Comment (test code = d2wylWVpWYKytHS5BxIy 9866) TEPnx1dam4PceGZxeWSx BTxgiRCnmeTniw40pEJ9 lC72PB7zRPEnYgC3BCGm mcM9Rij3GXQiQEEfpBOe O663k7sah8ocwyFuxFS2 fOfnOWNqrlnvTeK2QUjk ZNBdrouzINv7ZSkoTGZv yVQ3RGZtnLVqA2FbCTWt RH6bpvf3BRV0VKtqISAf YbV4UWZxhAVyEQVrzJfu CLbgf570BNI4BhHvHIJd tlCfxRerwW5hRpNhJKCk HLpFvJDnpWJ8XQNqtR5s cI7ttEwswM2glSMdiMGt kWNiqVEinmAyz1phdbB8 mDI4MUGrHSAokSYkhYMy IGNvbXBvbmVudCBpcyBu JHslsVi5JWPym7QrSoF6 FI1pBIPqdbdvIDpfoUCr LTAuZDG4jDCvu3Kwn72e BRJITztcPSVHLBI7HNTz ZBFvbY7kTTHvp411oXQh cAQvwPFfWIW8qB2kAYDH SzEsIFNPWDEwLCBmYWN0 g5BeHhkMONAeOUKijoVl W8XnDyRxTRHDGDA5JAps V6sapOuiySFoatSeL9Ft IVAoF6hzeq0ijSMeFYFd yOUsGMScydIHgWQfl5Fn qnPswEItcE8zfP6cfrKk trVytYzft0Oxg5AbXJYb RF6nK17kpPYuV1Xnkgtm SkA6KYr1BSouRSYsXAdc GQ9nhZ0tHJPmWUBjHPSp ePI8SyERaRVdGIorNkEk UP88lFOhBHFqPLlth8Bm cyBpbmNsdWRlcyBhIHJl IRF4oVZgQN2cNRLdjhvv hzDioBUld9VyFSJ9tDKg gIHfS0SfviKntbUoVUWu SP6fN35mtpPrH4NkBLHh mCGisG0bHLK4R0fjOTYq VC3dXGU4YKVzh2Bcwm03 piSmCVisg9PkGBWwd23d FcThDR6okjbkk00fBYqj sIcqssJcP0BwofHsX9fv areqjy5iLILuoepvYWZf DwB7WDG8Vg6lfYIwJOKo oK46za3diXP9r5TsFR9r D3UkZRN0WXiiOKIvfhDU t04zgbStLBSkmPEzdgXl IAQuamQnDj4tDWEnpBxu cQYaVDQym8YotHgslp9i cGFyXHBhclxwYXJ9 Disclaimer (test code = z9dnsUHpGQWzzUNeYkGz 9874) IOIsEOZvc2bvMSRqtPPn ZzEwMzNcZnRuYmpcdWMx RFVlSlWhf7our377eCDo m8ciOSKuTbB8oQZmGDRg qZYyC516WHFpSSfzh7sw y8ZqDKJbwPWfu3C5UUNE fkndwQp5wBxiH83ds6Q6 TokdN2buFGHhUKHiW7Aj AF8cBNPyMnz5TBM8HYD7 MRMoFSFlC0DzBH0zNBJb mYVaIXh5l7mhiAlbRGNo XPP3e4esYBmryaFbRW5e cg0yfNe0o2ysrfBjBNDt AMVzeKNMEPEdG3EueDxa Nr6wpAq6rJmsUjofZSP5 Uyu2EM1unx96yqv4xSha YQEnxzayRrL1AEyeFZWa gnkvCYk7CTlnHRQpmIS4 DDZdnKOiC9YwGGRgBT8a ohw3HNC3JItqKWZpYtG4 NDBcaGVhZGVyeTcyMFxm o096JFL5RyBhNG4pS8Io w0C1qS8unDOtYUHksEOn IaWmLOKdho8rkPMoTEsh x0FqORI7vnZ4lHKrvKGp ZPVoBA88Cplpx1ZmBjyb GNW7AEGhvmLje2Wup4qf NwGuktEkB2afO1AcDAZw GRPgKCLkXeKztkWxd7Wg m0LbvMDsaJx5c5jfHZBf KIZjvLugu8gxEIU7FRVu H4T4rTSqj0wkDVspZINg vOE0zkM6ZHLmlEHqI3El rQ5mLICcPO5gobd4r5sl MXJ5NBbiSNSdKqO9ghP7 NDBcaGVhZGVyeTcyMFxm m239MQQ5TzGnZNDga8Qd Z4BaoDgcL86ktIzbC09t MMSryYugxY2gyKzdoE4o ZjBcZnMyNFxxbFxwbGFp hpgdLEpvhvU4MQeeghad TXZdEXpsP4rzQsFiFMVr yHggLJivv4UnCUXkPSPy StxkiuP8RWBDf01oIPKf y4AtIWSdhA2cmZHuZPuw usBpsRG3RLfnmeHeNkTv uaBpWTVnrK2nMYOvDQ1l RTOwojMybg2dtpBfVQTg HPWcK2RumgbrlXcwszRv QLNsiu9kvcApCOY6YHOU CW3RMHCwTKFzb21mDSUu iYcltV0blLKzvxGyZDVx a3CnqK0ydXCWFLNfO4cg HA0oOIdwf6HzvYAiiSDz aTU0APJef9JaHhWiosMy tSFtoRHoC8RznJxjW6vx LJOwXYIalgVjnRBxn4Wu BYRczXV8tXOnEP3RVxEU o22gXOLwHKXXquRpAKSj kCibrJG8cmQ7gI0iDyQR ZiBhcHBsaWNhYmxlLCBj r867hp5jabL7UMTtVVIg wwvah4WnGXKyXVXbeY07 PSAdCAWdjy9qewcyoEOb gsPwZ3Syieu6kN0yGTYw YWluXGYxXGZzMjJcbGFu ZzEwMzNcaGljaFxmMVxk UyJlOJQpJMuvR9wtFcCz ZnMyMlxwYXJ9 [facility] Interpretation 2022-03-26 23:58:33 Test Item Value Reference Range Interpretation Comments Materials Received (test n7elqXPfIOJloAXtLpPg code = 9973) ILYwRDRzf5xfKQQjjUIa ZzEwMzNcZnRuYmpcdWMx CPPvByRqd0jdg990jPOf p3qgGLUfPvY8tCGuAKRi tTOhS294HDUdMMopy6vf w1ViAHOnjZWmt2K0GLLE hvslvVi4hZzkX81vt1O6 XyjoF2ilLCMzTVLhJ2Nn TN3wVWHjFpa7IUE4NYW0 CIWaVCStO1LpQG8sUPXv dSClXTm5q4yuxVbsLCNx RNY7s0ebDDputsClNF3k ui0umFi9u9jebzAbLNSs YQWutYZWJHBvW2OilDee Pt2ntGe4xNuuKfxvILP3 Rvo4KV6emx42ghi9cKwu DBHvqaalPnA2GWweFVMb dprlYGz7MAtzCKBemCeo MFxtYXJncjcyMFxtYXJn eFJ1MUJqyCUuP6WoYMUj PIdqTZTddyh6MqNcCh9b uPFmmPqcJYumo8oet6jx oCExFes6JHHjTpRkExgn HRrjk0Xgz9ygEUPalq0p JYG3sHMrhHohz7B1xLLg DUGojEWuxvGtQMVvvn74 pPQsxXKkpHRfzw5dgwWp qTElxJKsMGF1dDYdzoLd DWEqlYXtSTJrZU8kzCId RLHkyZ0pvhoaSFGsKqPv ytzvIEQqtEibmhXqOt3a uFuuFDF3YMieQ3yewT3e NqD8RMfzW1sneL7gWDt9 KBnglRB5ZPYbbI1pOF7t xxzrt5opYwXwPC3bswto b9upUoXkSR8jbjd7u4vk EME9EHeySTXjJvW7umW4 NDBcaGVhZGVyeTcyMFxm n325JWC0MfFeHFNup4Pp D9ObrNpnZ86zrEymI08n VODiwVgreR9rfSxxfZ3v KwJfJkMtQTh1ya12AWi5 izzkgLdcGDt4huCsYQSa BGP2PNRaeOOpIQOgP5s4 tePkVTFlLOU2SKKhoJQp ZFHyQ1m9rxUaZCC1LGp8 cnBhZGRmdDNcdHJwYWRk YjBcdHJwYWRkZmIzXHRy vBGiiGQmoTVbrM0wnQjk NOAuvTOdzZ2uHMV1RQWd cmgzMjBcdHJoZHJcbHRy vv86SVLlvxSfeHMcmHko lEZzJAQ8GWWwDFBhLVAz HIZ2ATDfVaMrcpLjCFdp bGJyZHJiXGJyZHJzXGJy QXN8OWIeSoUyqiWqMJwc bGJyZHJsXGJyZHJzXGJy TSN1AAPsVbJlvrKbIQpm bGJyZHJyXGJyZHJzXGJy ILI1GRCgTuCuwvPqRPec bHBhZHQxMFxjbHBhZGZ0 H0rnsCFhKLJxPHtdsXQr EXOuI7vcvDTeKPbcUUGi cGFkZmwzXGNscGFkYjBc F2wqYUPpUvJiH0UxtOi4 MDAwXGNsdmVydGFsdFxj kOQmOKE3NCCuJOPuLRRg VGI6CEMqPgSzxoHwYIdf bGJyZHJiXGJyZHJzXGJy YVN5PGZpWlFckmZfIDro bGJyZHJsXGJyZHJzXGJy XFF0BLFyAqDoceWwALvy bGJyZHJyXGJyZHJzXGJy OEH0KUVxUzFwfgCzXIyc bHBhZHQxMFxjbHBhZGZ0 L1gefPIwSFZzILhxiNPa XNScR1dieGGtFDoqSPOz cGFkZmwzXGNscGFkYjBc S1hwRCQyDxJoM2DokRt1 NjAwXGNsdmVydGFsdFxj uYJmAPF5ALEqAHCaONJb NKS2ZCRfDbNrtmMsGCzb bGJyZHJiXGJyZHJzXGJy TAA5EKOxZpNlxxTqKIln bGJyZHJsXGJyZHJzXGJy MIJ3YXSdJlUmhlTsMWim bGJyZHJyXGJyZHJzXGJy WYS0NLBtWvKsziZuUFtw bHBhZHQxMFxjbHBhZGZ0 J1dllGAlMPKbCIutcCWc GOBhA5vgvGFeVTmpIXMp cGFkZmwzXGNscGFkYjBc Y3ccXWCeIsNcI2AugWd5 JhKkVWRbypFabF45Eweo u4JlMWNzWKA8UYrcZTqk bFxwbGFpblxmMVxmczIw XFtkumveJREiHPljG7fs IdEsETWrrNeiHFvyq3Ou XGYxXGNmMlxmczIwXGIg ZLRaFVCvjS1iOrymV0Fb iA6oECaqUxlyZ9alVNWq m7WkcS7yPMaxvCIqllvg MVxmczIwXGxhbmcxMDMz QXnvY1irWpKzOLKjuJpa DSzfi0OtGDLvWWMfCnpm xoOgRPq7aaHvYKHiqMev wNFqFPtjkyGltAseh0Va faIkuXlaMQMqLFl3weUe uogsvVp9kIHecMygLOLo gIrsyN5bTmAbApDiEUen bGFpblxmMVxmczIwXGxh lhodRSYwIJudD0jmZlSk MIZavNvlZBvxs2GcWORf UXPbKcgnkeLrUQIwZ35a bGVjdGVkXHBsYWluXGYx XGZzMjBcbGFuZzEwMzNc aGljaFxmMVxkYmNoXGYx KFltD9gdIeBrZ5TdBOSf NrVhaUOwL6heU4TdeSrq YXJkXGludGJsXHNzcGFy IQE8nWWkswTxqBCumWFb XBXeKEluJNQ8cBZjpjoj aUByyxwuORqcjbW6ICVr YWluXGYxXGZzMjBcbGFu ZzEwMzNcaGljaFxmMVxk OjWuRIExQOgiH8drDtMl R8FpGHIkMpErQhRNBVQv aXZlZFxwbGFpblxmMVxm czIwXGxhbmcxMDMzXGhp E4wrIxDpNMChyXywOKlz s8ApANQpYTBxQujjmuAm FVv2vkEdIBDwtMwpsY16 Rqbvdy20RUTca2puOPIl A7ZjbYGqHZZadLPaPCbs MDhcdHJwYWRkZmwzXHRy cGFkZHIxMDhcdHJwYWRk ZnIzXHRycGFkZHQwXHRy jWKjUFP8L7f4haKgJOUx PRj9pyIcQNLqDwKsuFUu XVD0UNz3MxszcfR8yRFt Z1w5LmeyrrMzQRgqpEEm og17BGJtzoGqcLMwlHfq mLQyIZE3HNEzRKIpIICw ESA1CHYcYiCadkHaZFbv bGJyZHJiXGJyZHJzXGJy VKD3SVKzBbPbzfKmDGvd bGJyZHJsXGJyZHJzXGJy AYR0XTWbMdCjaxZaNXxi bGJyZHJyXGJyZHJzXGJy FIH3LLEwEcKibsCcGEdg bHBhZHQxMFxjbHBhZGZ0 J8cbwUQeLVHyRFvecRBk ULKvY3sdtVYpIGvkWEYc cGFkZmwzXGNscGFkYjBc B4pmMAOrHbDgN8SuqUa4 MDAwXGNsdmVydGFsdFxj fAByRCK0CIDxCELqMXWo MRF0NXKhPgLnvjSwUIla bGJyZHJiXGJyZHJzXGJy GVA8DNJdUpRyovFfSQyn bGJyZHJsXGJyZHJzXGJy DSR9QVViXjNwhdStDUns bGJyZHJyXGJyZHJzXGJy CQL6NSJfSvPvgxGuHAjz bHBhZHQxMFxjbHBhZGZ0 K0jvbDJtBXVfRDznwQBf TTMqH1qwlQIaFHbdSBMk cGFkZmwzXGNscGFkYjBc L9sgOMTgDwRxP6PjvRt8 NjAwXGNsdmVydGFsdFxj sPRoBGY3PQDhTEAxXHTx QMQ3TDJyOjWatoGcCHrl bGJyZHJiXGJyZHJzXGJy SJH4QPQdUbFdduKhPGfv bGJyZHJsXGJyZHJzXGJy PBG7EAPjBzLpviEyOLbl bGJyZHJyXGJyZHJzXGJy EGW2NXHiEgYjghDiYLbk bHBhZHQxMFxjbHBhZGZ0 B8bsgGHrBQHrVSzvtWCy EINeH1tkbUZdKPueMTSf cGFkZmwzXGNscGFkYjBc F6vkWCWsCxZfB3NlfOa7 IhGtAEAmmvMddX22Wbdu j4TuBKQwZOB3IRdhPIso bFxwbGFpblxmMFxmczI0 XHBsYWluXGYxXGZzMjBc bGFuZzEwMzNcaGljaFxm YVpmUdEbIZMiAVlsM1zt LcEtA5FmXJUbUnDrJX4x E5HtQmEjJfc9TGepMHO7 CGBCDWTpEYYOP2MSHven LSLNN0DfjChubV0jBkQu OjJwUKegDL7zOHYfW9re wBMyWMLbHAXdV9hyRfRc oB9rqTuaYZheZoQmUfEc MFxsdHJjaFxjZWxsXHBh rjBuvO82Hifyy2EwAGQt CMB8YLbhCSjciQfvuSMm kboxRZuevqS7CHPaZJla XGYxXGZzMjBcbGFuZzEw MzNcaGljaFxmMVxkYmNo URBjNQcfV8jrTnMaJ4Od KRWuXnXsTUDzRk0vMAXt XHBsYWluXGYxXGZzMjBc bGFuZzEwMzNcaGljaFxm PDnhIhItDZLkVEpbO7zi RdTsI6ByXWQqCcHfrLVv T3gnH2JivAdiLIAkJXhz tXVsSEZmiKEgLVV7sDPr wjFgpMyamVthfE7zHkAg ZnMyNFxwbGFpblxmMVxm czIwXGxhbmcxMDMzXGhp H7qxVuLhYSJhyHocXHwm b8SrJOZlDSJtDanzycOy IDUvMTEvMjAyMlxwbGFp blxmMVxmczIwXGxhbmcx TCYvRMapR7onSjHwWKZp vUgfTLtsa3IaIDPlKWIy DfsponMiFLw7jdKqIEUv bYgbwK23Iizzek96ESIh tkGym1LsPZFeDTY5IZdh MFxxbFxwbGFpblxmMFxm fpH7TLTdHEkzPCDpYVNs MjBcbGFuZzEwMzNcaGlj aFxmMVxkYmNoXGYxXGxv B8ljOpKhZgGnUYstJNJ1 Addendum 1 (test code = u2ynwUXuEGJlbQB3CaRf 37) THFrb6elf7WcdGZtmUHb FLlhsIIcjrKkpd21rEJ3 bX04OE8jMNWhBxB9FNDd duB7Byf2SMNrCWUaiJIq D078n3uxg2wdoiCgjIX9 JNRkUBSuO5EzVP6xLKQf kGBwM19fvVOvWPN6UVLr KBRsqXOwWIDoIBA2DDYq zXXhB1msYDSdXO7ginsd KEavXRaqGKQhbYS7CCGx lUZvC8CrSCFyVYvvDMNr wfm7ZoIrFr5cdEXdaLpx MFxwYXJkXHBsYWluXGZz SqZsZ5UvGL97fJDnQEQu DUZIHBFyUSB2NLn0XSFw XENSDsugRXFAUP6CV1Hn APXmBZUUTOYtc8stECJ0 YQRcq95fOTKqNy7eZHTp KTpccGFyXGNmMFxwYXJc oGa6OdUziOikKiJhTRMn CKKKcAQyaninyi1juXve kaexz5OzM0ErUkvmzKI5 IHgyOlxwYXJcbGkyMTYw WMZdZPorXQmfvZ5fBNTc IEJpbGUgZHVjdCBhZGVu h95anciuEP2cZXKhpyJz LK7kTRTwYSMxwcVOxuOy PSdkA60vjbX0EPxiYX00 aWZpZWQuXHBhclxwYXJc cGFyZFxwYXJ9 Diagnosis (test code = s8jpaMFzSRLxrMQ7UeTb 34) DBXja6vsk8XknJOocLEo RNwixGYemdBumn85aMM7 iU12MA0dIDJjYtJ5RYYh ftM2Aoz1MORrAHPceURv R458t2lbw5funcXnbXX5 EHVtAFYsC6UfYL0eBEXe xZZsN13sfYGcYTP1UMJn STUexGTcNNCgKSB6MAQr yBYyX3pyAJWxOL6mzefi BTorGShgPBNpaWK2FEMn qJBjL6ZoUXRqFBqvHTGi uau1ZzMcIi1bjRQpoXjx MFxwYXJkXHBsYWluXGZz YwJlE5UxWN52bTKoNQKb DLKQLMGbEAA2NMm6QBEh RDZOTbyrCTXECY8LI8Ey JRPlZOAJITHtv6oeCOT7 HDLyl14kQQDlBu4eZDEq KTpccGFyXGNmMFxwYXJc vKz2SeDtwLjvUoZrSQNt KRzalkNlgG3su9u4yFLo PJGryrVvpyirLL3xu3Sd YROvT51draDnqFAvLWZn E5Rjb030PUJdcnipcZNg NjBcZmktNzIwXGxpbjIx PzYjYiFlqZdgQHO0vr3o YEphKwasnk0koXIbxDvc bGluaXphdGlvbiBhbmQg peNxD3NuWXFwwANmaTlv ZXJhdGlvbiBpbnZvbHZp hbvbpLTwZP86ZJMpYtRg MGTcBW7hSPWct4NxCNTs mp2vJM4lCTYmGFDtb64r FW74JFUoARlaOLYxYZKq p1Swa7m6LOEbToHlI92y KFBlciBvdXRzaWRlIHJl zD1coEzsqRDoIF0eYAGc rN5nsTAwy2OjBLHgnlM9 uR2qwxHrlbLlQP81ZIhe LzEpLlxwYXIgUmVzZWN0 bO8xHT9urvptitJeXMNx QHLus6TxbRAyu6SyLDVm pzFFfdHdmIYko1InwKKa j73ocMkaVx50DRxqgCHe c6JwVcdgBAJewJUjSVme YsPaJXAhUVftvU04YjHw Gg6zESEtLU43JCD4SJKk eR3od5a7ISTlygp9NTRb SHlhbGluaXplZCBzdHJv zPFjIWMip1yrAxRyBNYz c66qXVbvPFXjC13baEPz dCAjMilccGFyXHBhciBD BrHSdICsdtsvfk7jlIdl kfhbv9ZgF4ZuTfhomRR4 IHgyOlxwYXJcdGFiIFRv MZHdNGHnH20rPVQgwLWx FtnlK3gabVY9fU5ai7e7 IHftyRInn5Dso4EaCKKf VMFgZXEzSQRxdY5mrOpw XHBhclxwYXJccGFyXHBh cmRccGFyfQ== Comment (test code = z9cpmJTgOOKeuZZ1TzZp 9835) AJKuz0btx1WgjXUzoBHh DUurjUWsvaFolz00eZC9 xK56NL0fWTLlYcB3QSCe drA7Dkg1ZMHyLOIcgCKj G398d1cyf9eqyeQshZN7 hRstHLIqyarlQpC6VYbq DUZsulccCKm6RDmdBNRl cVL0BOYziDRgB6VkZNDu UG7uvcr3FHN2DUnbWCBz BsN7VZWjlDPySRVdfXoc VAvog925UZE7YtBoVXUi ldVpdZlsiJ3sZkDiQFNg BVmUqPYerZG1RPTzfR0k jI2cuBqnmA5gfROigVYy uPJrmBUcybIvm3olkpU1 pOT8SENiWTBqgUTlyDBt IGNvbXBvbmVudCBpcyBu UTsgyPz6SBCev5YnFnQ1 FD9kQRFzspakXLycxRTe OQIvLOS4oJToq8Nqy19b BIJXDdduZCVDCRC4SKYf WJKpsN8jVQAek425eGEl dGFkfCJeKMK0rV1hNFOP SzEsIFNPWDEwLCBmYWN0 o3CmOeiWMVKfEFUogbSx Z1RbAiPjLLFZVRC3RXao Q3manYfxpRLbcrAkE9Rw ZLRwC4gtjn2uxANgGOJg oWGeOUSapfLTpBDbn5Kk hoDctSTrkW5enZ0pfiIw gjYezIgcc2Bnk0WlVYOd UQ4wW51vzXMkR6Yqlwbx OaW0AHf1DGfkTGVqYAhc TM6mjI7lHTLaAVHbYBSb bZT8ShPVhLRmQNrgLgZs PL03eULiLJQlNSafu0Si cyBpbmNsdWRlcyBhIHJl USM4yFNhON2vDDXfwtdh ouXxhXAtc0JaGEG0vZVf rBRqC7VbjpSqtfSnAZHa ML2kS65ipsJvT4MxMBBo fCMsxN0cABP4R8tgUGYd CW4eOUU7WPHvt2Iask39 ttJoNGemr7PbTFHww01w EwHiQV2ixnynr62aFUbn kOwoldClQ6PbumKaH4ze vtifnu6mULSruovyVXIu RiL9IJZ5Oh6hsDYtCATa eI76qn8hkPZ1h0ZxGX2i Z4XkGEZ1DSgyNQCfzlCE e60xbqMgYRMijEZhwtMl HQUlllHhLa2xXGBocVex hFRkYUJsc8AarHzzec9m cGFyXHBhclxwYXJ9 Disclaimer (test code = p4xstGYrFMHwdXAjGrLk 9844) OGTkTFZuy2skBQAekASl ZzEwMzNcZnRuYmpcdWMx WOBuQvMbi6gwc597sIIi o3nrKRIhDjW7iOSyFPSs vDRdU206QTZuJTbon4id j8DtQWYnpJAzw3A5FJBR otzrwKl5rGzzR91md1K7 IbutS2grMHIcWJDbF0Qw FL0tBUWuJkz8YHA8ODJ2 DDDnSNDgP4DhLF4nHSHy kYQyAVn7q2jdzTxgGQSt YVZ9t1ouRGgentAeYN0u tw6tjHx6e9ajdwFnZQCy BRWfiVSBVLTrJ9JzeAib Gl8ukGc2lJhfZravCKR0 Fuy3QM6kuh28aco7zDhl MQUomoqsYgH6AMglAQGp kcazQJv6OImqAQDycRK4 IWQnmLThV2EcOMNdGT1s cgh0FGT0UFpgVTPrVjQ0 NDBcaGVhZGVyeTcyMFxm d010AIB2KnZkVM3mV8Tk e0N9vK5ghJXePKZcrBUd XbHeRHUwnx7ggLJvZTbz z4WkFBU7qmO7fCByhIYs ZXLtNN19Mxeeh6IiVlyr SSG9ACJtryZmn5Kdf6gf JaRiyuLvQ0bdO9WiEVGd JDOkHXFnXeKcvtXaf5Hs y0OrhIVioMs5a7ncIIXs PTVaqQqwh6ocPIU8IESg N7X1nNLvl4mzVQiaPXCj tHR7fjC3CRPzcKRfI2Mn rB9pDJLmEP6yiyq4p1kj BOO5ARqrYJZqAyK6fqO4 NDBcaGVhZGVyeTcyMFxm a871TER8EsWeINWlt8Vf Z1LskWfbK34npOvrF33q XEVriQgaaI2pwIlkjP6m ZjBcZnMyNFxxbFxwbGFp xgsrETbnacX8AQjvqmlw ETQtXBqrW2fiDsHmRHWx cYhxJApys1PzWOBqHASb AokqiiN1QYLTr70kBTWb f6CsENIlrC8jwQGvUZmg wyEyoVH8HZyhsrXmLkUz giNyEPLnbN8iYIBrLR4n SRDvsiAivi9fjdWgATLa LDYtR7QzqdpyeXzxycLb RJEnyi8iuoAbXGD4TVAO HH2NLVLsQVQla75iQQMe yZxyrB6psEGfhsFzMJVp q5ElyS2dsVOJROFmU2ii WD3hFUtfs3EjxUGtjPIs hTE3OTNir3NcAbWmehIy zJUbfJNmK2AcpQkcR6co RYAoJXRnqeYbaFCrq9Ua QJImkTK0eYBwVV1HDbAK o15zPNZrVCYTxvNgVGZp qMxeaWV6jmI7gC6mXgOF ZiBhcHBsaWNhYmxlLCBj e850pr7fceE0QXKaMZPs ffiar7IyMVVhYYQdtU76 YZBnWJDqum9eztpxeVTb gkZbP2Wkjwh4iT5gRRUl YWluXGYxXGZzMjJcbGFu ZzEwMzNcaGljaFxmMVxk WpHkCOMhMNmgG9rsKwLp ZnMyMlxwYXJ9 [facility] Interpretation 2022-03-26 23:58:33 Test Item Value Reference Range Interpretation Comments Materials Received (test p7mgkKGhNDZzyNShWiOm code = 9973) TWBbRWQmm2ssMAFxeEMb ZzEwMzNcZnRuYmpcdWMx MUTkZoOlg5vvl281mEOy d2zbDSQsSuX1wNXmKCLz sRYbY577BTXaWRkad1ms d6AeCUMfsRZwh0A6BWSJ failfYw8jFbuE59ad1S3 PcmeU8gbWAXeZJHzP9Dj DT1mQDVoAgf2QJM5QDT0 NEMgBUPdP5SfPI1jCTUy iEQvRDd1p4nglOaxXARm AQF6n7dkZStqamAnZU9s eb2hcTd3f8uziuRvSFBe LUBosTIKCKVzB5HnxVkm Zk0llHn1xXqdUmbkTNO0 Wqx9VG6fbm16kwf9dXik OYSezhrjPfQ7MDaeOVKr paahILx2EEnqKQWrnZdv MFxtYXJncjcyMFxtYXJn iSZ2QBFwxUIjG0HbUXTw TOxrRMQhqbx8XdTsCq7c iWRgpLcpFMntm5hhv3se yDQcQex2QWUrDfCwNqjr MOllv6Gdw7mbFGWuzq9s RLJ0qZFjjHkos4R5nJZi NEYdoMPpwpFdDGKopn27 kEYcaOZfuATsyp0wwtAb gFEwnJYxZMG3gLXmwtBw NRHmfCGhIMMeCP2jnXDp EQPjvB7dbtewUHIgZxBf ndxdEJJdwMgyopPpNi5k yIhcCKR0JNzhO3hhaH3i YoA0SEriN6ivsE0aUKp5 UJeloKV5CWBlxM9kOC7n elact6rqEtCyRP7yracm s7sxKeAtAQ4phds5f5ay ZDH8AKssBXLkKpN3vsA1 NDBcaGVhZGVyeTcyMFxm f324XDR2LyEkEKUnq0Zh R5PzgNvtI40ruPneJ81k EYDooUgnsY4omIxglC2n SrOoBmTvIXc1it18NUc9 indojVymPQm3aiWgRRVv HYP5ALAqdAUmTFVqF2d3 krAhXLZfWUP6GIDmhSPz TCFxW1s3fmQiWDG2QEt1 cnBhZGRmdDNcdHJwYWRk YjBcdHJwYWRkZmIzXHRy tAEpxWNfjUDkcC0qtWjo RETocTUhoO4cOTW1AGNc cmgzMjBcdHJoZHJcbHRy nn59WSWrbmKmjGUbzQlq wCWcCEM4SUNiJOWmNXJk JLF1FHHwJmSeruUzCYhg bGJyZHJiXGJyZHJzXGJy GBT4CKEsDpYwseJbEGaj bGJyZHJsXGJyZHJzXGJy SGA3JKKkFhEogtGyJOcr bGJyZHJyXGJyZHJzXGJy HFA8FCFyHkIoovUjDTtz bHBhZHQxMFxjbHBhZGZ0 M7knwMVtITNvIGecfLOp JXThS2dvoRJnIZskUIBq cGFkZmwzXGNscGFkYjBc T6haZOFlWuZeC4LixQv3 MDAwXGNsdmVydGFsdFxj lISoRFU8GJLuPWWuJURh PEA2EHJoZpJumlWwRPnd bGJyZHJiXGJyZHJzXGJy VSB3RBCbPuZirpWkPIdp bGJyZHJsXGJyZHJzXGJy TIC7DCRzTmGogwWaSPxw bGJyZHJyXGJyZHJzXGJy PYB3NCZkUwThpjDvXDgv bHBhZHQxMFxjbHBhZGZ0 H7hjlVRnWGRyFXzjhKBy JUMmB3tswDDsQCskLDGy cGFkZmwzXGNscGFkYjBc N0ctFFQtHbJsC0CptOl7 NjAwXGNsdmVydGFsdFxj hQZwOWH6QEZsOSZrJCUi JSG1ELEsXmQlohQmVTtf bGJyZHJiXGJyZHJzXGJy CAZ4WMBsGySmqjKlEPbh bGJyZHJsXGJyZHJzXGJy TYE2CDVtCiYzljLzUOge bGJyZHJyXGJyZHJzXGJy HOA2QLBkNbJqylXmSDgk bHBhZHQxMFxjbHBhZGZ0 Q6pkkWAyCXXoVJxwuKDv JURqE2dpqLHqXHdpLIUf cGFkZmwzXGNscGFkYjBc W5duLVGyTaVxX5CevIi1 IvKbZRLiycXstH63Olzg n4PwXRVwWSH7EZugRNgq bFxwbGFpblxmMVxmczIw BRimbcnrXQLdHUnaU4gh JrOoZJRbgSjcFUsti6Bd XGYxXGNmMlxmczIwXGIg ZHKaMLNdxZ3wAemhG3Uu pY7xLYltJloaU7teMGNs i6PljL5jTTgdeLHmdkrj MVxmczIwXGxhbmcxMDMz EIkkU0xhVhIhEIXjzOed LVjei7TmCREkUKObPxbr drBoHSa1qyOsCMAazOju uFBiJQqgqoIfsJebm3Pn tmNokPvwTHEpLWl8yjYl swwuoUs5iHHkdSgiHSIk jRbamR1iMtQsMbHbBLqt bGFpblxmMVxmczIwXGxh nrxtYQJuOBhmH5qnXaYm QBYweBoeUJejn0GuAQNf FKTyQzinehYqOQJnA40b bGVjdGVkXHBsYWluXGYx XGZzMjBcbGFuZzEwMzNc aGljaFxmMVxkYmNoXGYx UNaoR8zuQeSgD2OhQXHp BtCvaFIkS4nmB9EsxZhm YXJkXGludGJsXHNzcGFy QQA8iRIbokMzjHAkgAKq YKIyIXzyAUK4pJOesilg pBOseofkYLrcggB5GVWa YWluXGYxXGZzMjBcbGFu ZzEwMzNcaGljaFxmMVxk FqAfYPQdTBupI9vbOpFo J2YoDYIuVzVwQlCFXKOb aXZlZFxwbGFpblxmMVxm czIwXGxhbmcxMDMzXGhp H7igCtGqGPPutFdwVCxt h7JkMSHlVQPqChercoWq DLj9vmOiHHUgvPjovP12 Edvlun43HJQzn8oyVWXr X3GchXUeYRSkmYMhOOwr MDhcdHJwYWRkZmwzXHRy cGFkZHIxMDhcdHJwYWRk ZnIzXHRycGFkZHQwXHRy oTTrQET3I6x0blDqLOYi RUs0usHcMBPmHyUtgCTs YWE6XGz2VsycznE0tAGz F9n5IoczpfKkZTwpbRVl nu10BHFvbvLkgVXmmNai iQHhEQJ4AMNvQROnJTNe BTG1FCBvSeKvjfEmWSwv bGJyZHJiXGJyZHJzXGJy HNR1RRTiNrAucmMyYGso bGJyZHJsXGJyZHJzXGJy YBW8TVYeEuNcueLbUQtd bGJyZHJyXGJyZHJzXGJy INO8LBZvHuAcnpBvIGvc bHBhZHQxMFxjbHBhZGZ0 G5stiGFxPIYiDVczsYIu IHJaP4ygsUQqQLreDIKf cGFkZmwzXGNscGFkYjBc D7grZXPrGdBcN7CxeQq3 MDAwXGNsdmVydGFsdFxj fPAdHFZ5BCNzBBBtPSOz VHU0FUUtLlOhuyBtNAxc bGJyZHJiXGJyZHJzXGJy BNM6MKEtZgUqxnWeJJeo bGJyZHJsXGJyZHJzXGJy LCU7RSQdIiBblxJsKMyg bGJyZHJyXGJyZHJzXGJy EKF8JEPlMlVxpbKcNVlb bHBhZHQxMFxjbHBhZGZ0 J4lipRUzSDYqWBfplMJr WRKvI3temDNkIHpiCVYw cGFkZmwzXGNscGFkYjBc J4qhPNIeNyKmM8KfhGx1 NjAwXGNsdmVydGFsdFxj jASqXHW3RZRfCYLhZFLx NLH5JENqIfXonlTmCEfw bGJyZHJiXGJyZHJzXGJy ZTU7HQXkZlUiitHjFYpw bGJyZHJsXGJyZHJzXGJy ZPE5QUQhIsNlcqTlVZta bGJyZHJyXGJyZHJzXGJy SXO3GIMnVhWmtyUtHEon bHBhZHQxMFxjbHBhZGZ0 U2kevPKxSCMvYTjdrBJa PQHvE2apxUKrOLlhLAPm cGFkZmwzXGNscGFkYjBc X7tnNTXnNlVxA8CjsQy6 PoOwMIKsccVrcZ26Tswi j0SnAKCqKRL3BBcvLFyp bFxwbGFpblxmMFxmczI0 XHBsYWluXGYxXGZzMjBc bGFuZzEwMzNcaGljaFxm FWwnQiTuQWNvRZqoD6bu CjDhW9WnXWAfJmHbOC0r B4BxHhHwFmj3IVnjBYK0 ASKGOWIoOQEVS4KBXftv QIUHS5IelPnvkL6vYjHu InHiVEsbDV2nIKZjU6ui nYWsKDWaRGApD1pnCfVn zF9ipXblYNlxElOeIpBa MFxsdHJjaFxjZWxsXHBh izMblS64Uqktm1RpMCAr QSP0OVsdBSgxiBrdoFOx ziwxDIkmziS3MRZiSSjp XGYxXGZzMjBcbGFuZzEw MzNcaGljaFxmMVxkYmNo NUGmTUxwC7rgOqKbH4Ht JMTeJaMtUWRvFi2lVVFa XHBsYWluXGYxXGZzMjBc bGFuZzEwMzNcaGljaFxm FKnhXkWyRBArTMzqM1nr QzPwV8YbKPMlTpXxjEQd S3nrW0GygKemTUDkECpr mWDnMLDpvRGvSKW9oVOg reHjkTkohQzyrY1yUlMv ZnMyNFxwbGFpblxmMVxm czIwXGxhbmcxMDMzXGhp D3ooRxGiBNEciPqoTCyr a6VvGRDfIYDaQujdsjEg IDUvMTEvMjAyMlxwbGFp blxmMVxmczIwXGxhbmcx HXFeUDphE3cjNzWdMLAg eEapFQqfu8UvZJTfNTDb GxhwdaLrDBq0hpRnLOLw kKpaaR75Ljfquf23WPJn fuXlv7EeEFKxEYX3WWjt MFxxbFxwbGFpblxmMFxm qkC6BVPpVUqzIJSeUSMy MjBcbGFuZzEwMzNcaGlj aFxmMVxkYmNoXGYxXGxv S5xpVxZoHlRrYTekSNI7 Addendum 1 (test code = c5ubkLKvKAMycVS9LtLf 37) ZAFjg2qih5PyhJDuqVLp UJkewQQusuBtuv63eTO5 jX92BW5vCJVeDxG3NQEf qtL0Pux2BZEsURTnkEVk E305y8qmk4stztQkzQT8 SWGmWPCmX0UlMR6iLWAg kYIhP52hpFPfOLO0NUAy XOHguGVyNTPcXYR8RHLb rWTrT5kvALUvSI7phtog DSxoKDbyNDYnlSE4VOZg zXQnN3CfXUJlJWlwFVIa gdc3EiZyBf6yuGGxdAib MFxwYXJkXHBsYWluXGZz WdDgB8EsQU82oGZmMATb MPSLKHXyWAB2FZu4VAVg KEHUAofjTLYEYJ3KZ7Jb OMWgGSAACCKru7ptNTN9 FSTxx23aGRBxBx6zZQXv KTpccGFyXGNmMFxwYXJc oJy3JeUtwMolHwUzACWp ISWUhHYgabtgaa9cbYjz zhsxh5DdL2AgFwlruXT0 IHgyOlxwYXJcbGkyMTYw OAApCHciMOoirI8fDXCw IEJpbGUgZHVjdCBhZGVu v09esoabHE8jMGZticEa MK9qFMMwFSGxhmEUpzYo EDdlN74jwoN3VPtjKK30 aWZpZWQuXHBhclxwYXJc cGFyZFxwYXJ9 Diagnosis (test code = a5ohpZJjMOVipTZ6DsVc 34) KDDjy2wfe5ElyLAnbDSm PHazqMJfkbHzli15uTC1 tG79DB4mRSRoJsE4JVLs ahC3Lpz6XWJiRHSsoXGw Q945v9chv4qtedWeqDE2 AAZiPMIbA3GeWD5nGLHn xNUmJ20wnSHfPRE4WYPy BPSfzCXcURAmOXE6YJRx sKLrY7gtUEYwZM5mbpcw NAqbFQmzHCTleQQ6QNYz uLGuN8DiBLQkRKrbBMQr wku4KkTfMz7qsYCteUhp MFxwYXJkXHBsYWluXGZz JlKiG1ZhHZ99gTBoVYKd VIGRCIGtBQY3EYq6OMMy LPQNLwlhKFAYAK2GN5Oc BCVoHUKTQTAjz7dlXYI2 OFYxm76kZRJrGh2kFBQj KTpccGFyXGNmMFxwYXJc zOf5MqJffBfuThTwYECz LPjxhgQbhF3ea7j8lUIa KCUkibAsbzijDI9fe1Ym OKXtB90mlyIktCOoFTBx Z3Cul372BUSfydaxqDAb NjBcZmktNzIwXGxpbjIx JhMlAjPqwMdgGYD3mp8e UQlcMguxbj1wvDSxpRku bGluaXphdGlvbiBhbmQg wbSxY5OtHEMerBZnuLzr ZXJhdGlvbiBpbnZvbHZp fgeqjMXaPS78PICeFdXh PXVaXD5uQAZdl2WdBOHb tk5fEI9eXVNfZYNvl49m EZ02ONIgDLjqQNSvARHx e5Gap6w4VJTiRuMdN44w KFBlciBvdXRzaWRlIHJl qZ7pqXoftFTgXQ8fFRWt yD7coEJkn5JbIQXryfS3 mY1wfzReegXfIP43SEef LzEpLlxwYXIgUmVzZWN0 wT3pFO7ortnheaBxWNLw KBRje7PdcEBrt6AnEVCz yiWNuzAoaQUrb1FkdDCw s67iyIzlIs42ZYolaRXa i3DrNxdjPQRayKMwLNqo KzAbIBZbWMlthL22DkHa Qr4yHGUkIF31PKA9UIQo pG6pb5c9YHOtxts2SHFh SHlhbGluaXplZCBzdHJv nWSqONKmw6qvCnAxBAHf c16bEWlsKWCyZ05qgLOs dCAjMilccGFyXHBhciBD QlCFxYZuqeouxg1gbObf efmvg5UeY9UtYywiyCY3 IHgyOlxwYXJcdGFiIFRv HFSbIZWrW66vQUNurDTp VgyxD4fnbNG7hA0da5b2 TYvafYSqb8Xqq6QqHTQz JYVuACCwJGEsaH5ekQbn XHBhclxwYXJccGFyXHBh cmRccGFyfQ== Comment (test code = s6hugLYvAEQbfFI1BqPz 9808) BYSom5pmt9PqaWHkkMBe XMvabOLnntSikt07jZE4 oM65ZC9zNMIzMjK1NXEa vdW1Drq6NCWcCOVprWDb V675h3uwl0uqgmDpdXE6 oKcoLCEizlwvLgP1FHip HZPrlcetNJc3OKhsKZUp rUU1CILwrDYzM1HaXRBj MT9hmix9NYG6GCfmHKMq GyM6LIVqrUDkWCFdeTpd OCklk716IHA4AtWbBORo qtBjrAdjeU3tGyTkSNAk BYbDlOEpvYC9MDUmiT9s vO0xxVpmuO8mwUOcqZLd kURdyBDyqePtf0ffkmD5 uIR0DNZuUDXuqRCmzKOt IGNvbXBvbmVudCBpcyBu DThciXc9GPXrr5GpUiS5 AO0zLVMrkguxPJzreJLz FFUqPZV7dBKnp0Nus45e CKZTHnbqGGRGCMO7DBNc FSOvpK5zARHcg951qMEk pOMqvIAsRRZ5bM8dRRTR SzEsIFNPWDEwLCBmYWN0 w9MfTciNIUIoJJUsqhMa O0GiWgHaCOKAYNS9TGmi O1bdlFdnmXAeagHsB5Wc RIXuD4cplr9boKXzYTRe xAXsFTVvlqKUqQZqw8Do xsZyaXCztM7vaX0dwwVe jfYwiEgle5Rcd2GeTNSv AT3qA08cgJJeT8Hycfnb FhF2IVl6EWviSWUbLTgd MU2brS1vRORmLQIlXYDg iPM4MnXYlQMpBValVyFx TS37hCTkEDXpMOlhx5St cyBpbmNsdWRlcyBhIHJl GJS0vKVgJQ5sHUSotnmv pjVbnGBsu3DbESM8zRCl rBLkX4MhbtTgbaCtEHUd RW6iV92lsaRqX2WpTPPp cJBccP5qPSV1M4woDCRw JA7hZIH3CPYgo9Gneq05 ydUoEPsvt7UpTFMdx99d ZqTuBY4stomlx62qVKkc wOdwdbJeK9IrnkYuZ5jx gnvkvn7oVCMfzofxMVWw XuK0VBX0Ff9uqGPnDSWm mI98fr3dpRA1v6VlNK8p M5QjKJQ2LYrxIQEqcsWR t96xjxZbBKPsaXQvboSa FBTvurVxRm0eDHJczUrd kBMxKFZca8IyoQncfy5y cGFyXHBhclxwYXJ9 Disclaimer (test code = l7ukzKMeZQEdcSJdVqJo 9844) VGFnXXCfa2taONCfkQUu ZzEwMzNcZnRuYmpcdWMx IONfMaSsh9rsa094yARy f6woRFRiPvB3aJLrTFIe zBEhM705YSFuITfqq7ju g2ApRFEjyCHih2A6OVEH gdqnsRa5iNmmE63wh7Q9 CnpoW2wfLFArJCWeL7Po UF8dOTTpUcz2AFR4YRK3 HHBtLVCpD5EiAJ3qHDYq kRNbDYu4a2wkuGmpKJVx XTU4n9izZOtyezCpSB3r qg7mtTa6h3gdsgKgBEXe CIRusOXKGNTpX5DlhUvd Qm9krQt2gGpwZaxiYUV7 Luc4QO0rnb22egi2xNmz JNUnskihYaB6ZEtaXAJy nxynNPu0MGlgLLHdaXA3 RIAykVElU4IuIEKkQD3h rop9MKQ8CVjqXHGkNqN2 NDBcaGVhZGVyeTcyMFxm k093NMX0OgEbHH1aR8Mt k1K1nZ4kzTCuGLUkjSQo ExWtLVWxtp8wcYMsIQce e5FfDKK1cyZ6hYMuxNMg IKWnQN72Lrccl4WhWvml JDK6YIJvfzBdu3Qha6ih LmZsigAkK6uuK2MdWIEt CWWoBWMuIbNohaVpd3Gt k9TqxCMsbSo6k4sbTIQo YOFdcFhfa0gbCHH9TORr N2H5gNMxn4ndOMhfQFEk hNO9jqO4GNOflDNnN2Nl gB5jLKAhYE2zdrz3r3te ELS8LKfzLIDxYbK1gzN8 NDBcaGVhZGVyeTcyMFxm a184VEB0UvVtNZZkp8Hp O9SvqZlyB40lvTcoI48u KQCwxDwmkF6kvEqdtN7r ZjBcZnMyNFxxbFxwbGFp calxWYhbzuT3NTekrsvs GESoHAvdJ2dvDcMbIJMu qMceRAnbe6GxUBRtXNYr DfxsfaL9PAMIf15zPWFx p6RpHHGmuU3hbRSwTTet gyQstLU6GYdfsfAyZaEr vuBxZFAlqX5tXFNqZT0r MYEpvuXufj4rguFmQLYa NVNcZ3MizxoxoBjnnbLh OZOezd6xkwUmOIQ5YWDJ HK4ZFGVqLMMew82zEHUa wWkyjP5neALcruBbWYSf s1PhiI7anDKMNOTvC6bb YE1uZSwfm9QpwJFdkWAu xME4QDFhs8LlLqZxyrZs oXWdnXUwO0AllVbbU5sx FHSmYKKujvOhtDGdc5Zx WNNmyCI3hHPzLC9VEnXP t82yHOSdOTHTrwCiEOKs nKryrKC2vpZ9wK4iItSG ZiBhcHBsaWNhYmxlLCBj h287to3oboJ6MTKwCAUu uqbwx0YvAVAzWEYtzG65 GKCsLMDqcm7gpcndbGUf ztIsC5Vqfzc7hC7nGXCg YWluXGYxXGZzMjJcbGFu ZzEwMzNcaGljaFxmMVxk KoDpMKRnNWtcS8hpQnGv ZnMyMlxwYXJ9 [facility] residual 2021-12-23 17:15:00 Test Item Value Reference Range Interpretation Comments [facility]test code = 2336[facility] [id number] 17:15:00 Test Item Value Reference Range Interpretation Comments Total volume (test code = 2336) 0ml [facility] urinalysis [id number] 17:14:00 Test Item Value Reference Range Interpretation Comments Color urine, POC (test Yellow code = 2214298) Clarity urine, POC Clear (test code = 3911236) Glucose urine, POC Negative Negative (test code = 3808062) Bilirubin urine, POC Negative Negative (test code = 7651845) Ketones urine, POC Negative Negative (test code = 4681563) Specific gravity urine, 1.005-1.030 POC (test code = 4248756) Blood urine, POC (test Negative Negative code = 5848041) pH urine, POC (test See_Comment [Automa davion message] code = 8236415) The system w [employer] generated this result transmitted ref erence range: 5.0, 5.5 , 6.0, 6.5, 7.0, 7.5, 8.0, 8.5. The refere nce range was not u sed to interpret this result as normal/abnor mal. Protein urine, POC Negative Negative (test code = 5996776) Urobilinogen urine, POC <2.0 See_Comment [Au tomated message] (test code = 0587285) The sy stem which generated this result transmitted ref erence range: <=2.0. T he reference range was not used to int erpret this result as normal/abnormal . Nitrite urine, POC Negative Negative (test code = 9578368) Leukocyte esterase Negative Negative urine, POC (test code = 9451886) [facility] urinalysis [id number] 17:14:00 Test Item Value Reference Range Interpretation Comments Color urine, POC (test Yellow code = 4414307) Clarity urine, POC Clear (test code = 4568365) Glucose urine, POC Negative Negative (test code = 2442510) Bilirubin urine, POC Negative Negative (test code = 7120922) Ketones urine, POC Negative Negative (test code = 8060690) Specific gravity urine, 1.005-1.030 POC (test code = 9578879) Blood urine, POC (test Negative Negative code = 1201695) pH urine, POC (test See_Comment [Automa davion message] code = 3473431) The system w [employer] generated this result transmitted ref erence range: 5.0, 5.5 , 6.0, 6.5, 7.0, 7.5, 8.0, 8.5. The refere nce range was not u sed to interpret this result as normal/abnor mal. Protein urine, POC Negative Negative (test code = 9897419) Urobilinogen urine, POC <2.0 See_Comment [Au tomated message] (test code = 4210494) The sy stem which generated this result transmitted ref erence range: <=2.0. T he reference range was not used to int erpret this result as normal/abnormal . Nitrite urine, POC Negative Negative (test code = 0100846) Leukocyte esterase Negative Negative urine, POC (test code = 2575733) [facility] MOLECULAR [id number] 22:32:52 Test Item Value Reference Range Interpretation Comments POCT Molecular FluA (test code = Negative Negative 06304-6) POCT Molecular FluB (test code = Negative Negative 85064-6) Lab Interpretation (test code = Normal 10486-3) General acute hospital MOLECULAR [id number] 22:26:40 Test Item Value Reference Range Interpretation Comments POCT Molecular Strep (test code = Negative Negative 26907-7) Lab Interpretation (test code = Normal 07710-3) [facility] [id number] 00:06:50 Test Item Value Reference Range Interpretation Comments Urine culture (test SEE COMMENT Bacteriu jacobo screen code = 7633785) negative. [facility] [id number] 00:06:50 Test Item Value Reference Range Interpretation Comments Urine culture (test SEE COMMENT Bacteriu jacobo screen code = 4340688) [facility]. [facility] [Presence] in Respiratory specimen by ADELAIDA with probe [id number] 21:35:28 Test Item Value Reference Range Interpretation Comments SARS-CoV-2 (COVID-19) RNA Not detected Not-Detected [Presence] in Respiratory specimen by ADELAIDA with probe detection (test code = 80042-0) Whether patient is employed in a healthcare setting (test code = 53705-9) Whether the patient has symptoms related to condition of interest (test code = 33023-7) Patient was hospitalized because of this condition (test code = 23775-9) Whether the patient was admitted to intensive care unit (ICU) for condition of interest (test code = 71847-8) Whether patient resides in a congregate care setting (test code = 52364-7) Surgical pathology [id number] 20:28:41 Test Item Value Reference Range Interpretation Comments Case number (test code = [id number]) Surgical pathology See link below for report (test code = PDF Lab Report 2255) Result status (test code This is Final Report = [id number]) for [id number] [facility] [id number] 20:28:41 Test Item Value Reference Range Interpretation Comments Case number (test code = [id number]) Surgical pathology See link below for report (test code = PDF Lab Report 2255) Result status (test code This is Final Report = [id number]) for [id number]2021-10-10 11:42:29 Test Item Value Reference Range Interpretation Comments Ventricular rate (test code = 253) Atrial rate (test code = 255) CT interval (test code = 266) QRSD interval [...] Ferrer MD ([id number]) on 08/24/2021 6:42:[address] AM [address]2021-10-10 11:42:29 Test Item Value Reference Range Interpretation Comments Ventricular rate (test code = 253) Atrial rate (test code = 255) CT interval (test code = 266) QRSD interval [...] Ferrer MD ([id number]) on 08/24/2021 6:42:27 AM [facility] [id number] 18:03:01 Test Item Value Reference Range Interpretation Comments POC glucose (test code 175 mg/dL 65-99 H Opera tor Name: = 34918-1) Morton BokeccoslabaDevice ID: [id number] able: [facility] 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 Interpretation Abnormal (test code = 65637-7) [facility]2021-10-08 18:03:01 Test Item Value Reference Range Interpretation Comments POC glucose (test code 175 mg/dL 65-99 H Opera tor Name: = 88112-7) Morton BokeccoslabaDevice ID: [id number] able: [facility] 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 Interpretation Abnormal (test code = 28291-5) [facility] [id number] 10:26:00 Test Item Value Reference Range Interpretation Comments ABO grouping (test code = 883-9) A Rh type (test code = 79368-6) POS Antibody screen (gel) (test code = NEG 890-4) [facility] [id number] 10:26:00 Test Item Value Reference Range Interpretation Comments ABO grouping (test code = 883-9) A Rh type (test code = 61534-2) POS Antibody screen (gel) (test code = NEG 890-4) [facility] RNA [Presence] in Respiratory specimen by ADELAIDA with probe [id number] 07:00:55 Test Item Value Reference Range Interpretation Comments SARS-CoV-2 (COVID-19) RNA Not detected Not-Detected [Presence] in Respiratory specimen by ADELAIDA with probe detection (test code = 69923-7) Whether patient is employed in a healthcare setting (test code = 07977-2) Whether the patient has symptoms related to condition of interest (test code = 55650-2) Patient was hospitalized because of this condition (test code = 11737-4) Whether the patient was admitted to intensive care unit (ICU) for condition of interest (test code = 86253-7) Whether patient resides in a congregate care setting (test code = 10859-4) SARS-CoV-2 (COVID-19) RNA [Presence] in Respiratory specimen by ADELAIDA with probe [id number] 14:44:09 Test Item Value Reference Range Interpretation Comments SARS-CoV-2 (COVID-19) RNA Not detected Not-Detected [Presence] in Respiratory specimen by ADELAIDA with probe detection (test code = 04887-7)
[2022-07-22] MEDS ORDERED: HYDROMORPHONE HCL 1 MG/ML INJ ONE (23:08)
[2022-07-22] MEDS ORDERED: PROMETHAZINE INJ 25 MG/ML AMP ONE (23:08)
[2022-07-22] MEDS ORDERED: CYCLOBENZAPRINE 10 MG TAB ONE (23:08)
[2022-07-23] MEDS ORDERED: HYDROMORPHONE HCL 1 MG/ML INJ ONE (00:17)
--- NOTE | 2022-07-23 00:38 | EDPHYS ---
Physician Documentation [facility] Name: Adelita Lemons Age: 61 yrs Sex: Female : 1960 Arrival Date: 07/22/2022 Time: 22:32 Bed 7 Private MD: Ignacio Mckenzie ED Physician Neil Angelo HPI: 07/22 22:56 This 61 yrs old Female presents to ER via Wheelchair with complaints of Back Pain. rn 22:56 The patient presents with pain that is chronic. 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 The symptoms are located in the low back. Onset: The symptoms/episode began/occurred 1 month(s) ago. The pain radiates to the right leg. Associated signs and symptoms: Pertinent negatives: abdominal pain, chest pain, dysuria, fever, hematuria, incontinence, nausea, numbness, tingling, urinary retention, vomiting, weakness. Modifying factors: The patient symptoms are alleviated by nothing, the patient symptoms are aggravated by any movement. Severity of symptoms: At their worst the symptoms were moderate, in the emergency department the symptoms are unchanged. The patient has experienced similar episodes in the past. The patient has been recently seen at the [facility] Emergency Department. Pt reports right lower back pain that radiates down right leg, present intermittently for a month or so, multiple ER visits for this, states only dilaudid and phenergan help the pain. No new or worsening symptoms. Now has MRI scheduled for this next Wednesday. No trauma. . Historical: - Allergies: 22:40 Amoxicillin; kb3 22:40 Bactrim; kb3 22:40 morphine-vomiting; kb3 - PMHx: 22:40 GERD; Hypertension; Chronic back pain; kb3 - PSHx: 22:40 Appendectomy; Cholecystectomy; Fibrous mass removed from abd; hysterectomy; L knee kb3 replacement; R hip replacement; right rotator cuff; - Immunization history:: Adult Immunizations up to date, Client reports receiving the 2nd dose of the Covid vaccine, Last tetanus immunization: up to date. - Social history:: Smoking status: Patient denies any tobacco usage or history of. - Family history:: not pertinent. - Hospitalizations: : No recent hospitalization is reported. ROS: 22:56 Constitutional: Negative for fever, chills, and weight loss, Eyes: Negative for injury, rn pain, redness, and discharge, Neck: Negative for injury, pain, and swelling, Cardiovascular: Negative for chest pain, palpitations, and edema, Respiratory: Negative for shortness of breath, cough, wheezing, and pleuritic chest pain, Abdomen/GI: Negative for abdominal pain, nausea, vomiting, diarrhea, and constipation, Back: + right lower back pain MS/Extremity: Negative for injury and deformity, Skin: Negative for injury, rash, and discoloration, Neuro: Negative for headache, weakness, numbness, tingling, and seizure. Exam: 22:56 Constitutional: This is a well developed, well nourished patient who is awake, alert, rn in wheelchair and appears uncomfortable, favoring left side Head/Face: Normocephalic, atraumatic. Cardiovascular: Regular rate and rhythm. No pulse deficits. Respiratory: No increased work of breathing, no retractions or nasal flaring. Skin: Warm, dry MS/ Extremity: Pulses equal, no cyanosis. Neuro: Awake and alert, GCS 15, oriented to person, place, time, and situation. Motor strength 5/5 in all extremities. Sensory grossly intact. Vital Signs: 22:37 BP 177 / 96; Pulse 100; Resp 20; Temp 97.3; Pulse Ox 99% ; Weight 97.07 kg; Height 6 kb3 ft. 0 in. (182.88 cm); Pain 0/10; 22:55 BP 177 / 116; Pulse 105; Resp 18 S; Pulse Ox 97% on R/A; bb 07/23 00:22 BP 157 / 96; Pulse 89; Resp 16 S; Pulse Ox 98% on R/A; bb 00:58 BP 158 / 89; Pulse 72; Resp 16; Pulse Ox 99% on R/A; kl 07/22 22:37 Body Mass Index 29.02 (97.07 kg, 182.88 cm) kb3 MDM: 07/22 22:35 Patient medically screened. rn 07/23 00:35 Differential diagnosis: chronic back pain, muscle spasm, radiculopathy. Data reviewed: rn vital signs, nurses notes, old medical records, and as a result, I will discharge patient. Counseling: I had a detailed discussion with the patient and/or guardian regarding: the historical points, exam findings, and any diagnostic results supporting the discharge/admit diagnosis, the need for outpatient follow up, to return to the emergency department if symptoms worsen or persist or if there are any questions or concerns that arise at home. Response to treatment: the patient's symptoms have mildly improved after treatment, and as a result, I will discharge patient. Special discussion: I discussed with the patient/guardian in detail that at this point there is no indication for admission to the hospital. It is understood, however, that if the symptoms persist or worsen the patient needs to return immediately for re-evaluation. Based on the history and exam findings, there is no indication for further emergent testing or inpatient evaluation. I discussed with the patient/guardian the need to see the back specialist for further evaluation of the symptoms. ED course: Already has MRI scheduled, pain improved but not resolved, explained to her that we cannot obtain MRI at this time and her chronic back pain unlikely to resolve. Given return precautions. . 07/22 22:48 Order name: IV Start; Complete Time: 23:02 rn Administered Medications: 07/22 23:00 Drug: Phenergan (promethazine) 12.5 mg Route: IVP; Site: left antecubital; kl 23:05 Drug: Dilaudid (HYDROmorphone) 1 mg Route: IVP; Site: left antecubital; kl 23:05 Drug: Flexeril (cyclobenzaprine) 10 mg Route: PO; 07/23 00:08 Drug: Dilaudid (HYDROmorphone) 1 mg Route: IVP; Site: left antecubital; bb Disposition Summary: 07/23/22 00:37 Discharge Ordered Location: Home rn Problem: an ongoing problem rn Symptoms: have improved rn Condition: Stable rn Diagnosis - Low back pain rn - Radiculopathy, lumbosacral region rn Followup: rn - With: Private Physician - When: As needed - Reason: Recheck today's complaints, Re-evaluation by your physician Discharge Instructions: - Discharge Summary Sheet rn - Chronic Back Pain rn - Lumbosacral Radiculopathy rn - Musculoskeletal Pain rn - Back Exercises rn Forms: - Medication Reconciliation Form rn - Thank You Letter rn - 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
--- NOTE | 2022-07-23 00:38 | ER ---
Nurse's Notes [facility] Name: Adelita Lemons Age: 61 yrs Sex: Female : 1960 Arrival Date: 07/22/2022 Time: 22:32 Bed 7 Private MD: Ignacio Mckenzie Diagnosis: Low back pain;Radiculopathy, lumbosacral region Presentation: 07/22 22:37 Chief complaint: Patient states: Pt reports chronic back pain, currently sees pain kb3 management and is taking hydrocodone but reports no relief. Coronavirus screen: Vaccine status: Patient reports receiving the 2nd dose of the covid vaccine. Client denies travel out of the [place] in the last 14 days. Ebola Screen: Patient negative for fever greater than or equal to 101.5 degrees Fahrenheit, and additional compatible Ebola Virus Disease symptoms Patient denies exposure to infectious person. Patient denies travel to an Ebola-affected area in the 21 days before illness onset. No symptoms or risks identified at this time. Initial Sepsis Screen: Does the patient meet any 2 criteria? No. Patient's initial sepsis screen is negative. Does the patient have a suspected source of infection? No. Patient's initial sepsis screen is negative. Risk Assessment: Do you want to hurt yourself or someone else? Patient reports no desire to harm self or others. Onset of symptoms is unknown. 22:37 Method Of Arrival: Wheelchair kb3 22:37 Acuity: CRISTAL 4 kb3 Triage Assessment: 22:40 General: Appears in no apparent distress. uncomfortable, Behavior is calm, cooperative. kb3 Pain: Complains of pain in left low back and right low back Pain radiates to right hamstring, posterior aspect of right knee and right calf. Musculoskeletal: Capillary refill < 3 seconds. Historical: - Allergies: 22:40 Amoxicillin; kb3 22:40 Bactrim; kb3 22:40 morphine-vomiting; kb3 - PMHx: 22:40 GERD; Hypertension; Chronic back pain; kb3 - PSHx: 22:40 Appendectomy; Cholecystectomy; Fibrous mass removed from abd; hysterectomy; L knee kb3 replacement; R hip replacement; right rotator cuff; - Immunization history:: Adult Immunizations up to date, Client reports receiving the 2nd dose of the Covid vaccine, Last tetanus immunization: up to date. - Social history:: Smoking status: Patient denies any tobacco usage or history of. - Family history:: not pertinent. - Hospitalizations: : No recent hospitalization is reported. Screenin:55 Abuse screen: Denies threats or abuse. Nutritional screening: No deficits noted. bb Tuberculosis screening: No symptoms or risk factors identified. Fall Risk None identified. Assessment: 22:55 General: Appears in no apparent distress. uncomfortable, Behavior is cooperative, bb crying. Pain: Complains of pain in right back and right leg Pain currently is 10 out of 10 on a pain scale. Neuro: Level of Consciousness is awake, alert, obeys commands, Oriented to person, place, time, situation. Cardiovascular: Capillary refill < 3 seconds Patient's skin is warm and dry. Respiratory: Respiratory effort is even, unlabored, Respiratory pattern is regular. GI: No signs and/or symptoms were reported involving the gastrointestinal system. Derm: Skin is pink, warm \T\ dry. Musculoskeletal: Circulation, motion, and sensation intact. Reports pain in right lower back radiating down to foot. 23:30 Reassessment: Patient appears in no apparent distress at this time. Patient and/or kl family updated on plan of care and expected duration. Pain level reassessed. Patient is alert, oriented x 3, equal unlabored respirations, skin warm/dry/pink. Vital Signs: 22:37 BP 177 / 96; Pulse 100; Resp 20; Temp 97.3; Pulse Ox 99% ; Weight 97.07 kg; Height 6 kb3 ft. 0 in. (182.88 cm); Pain 0/10; 22:55 BP 177 / 116; Pulse 105; Resp 18 S; Pulse Ox 97% on R/A; bb 07/23 00:22 BP 157 / 96; Pulse 89; Resp 16 S; Pulse Ox 98% on R/A; bb 00:58 BP 158 / 89; Pulse 72; Resp 16; Pulse Ox 99% on R/A; kl 07/22 22:37 Body Mass Index 29.02 (97.07 kg, 182.88 cm) kb3 ED Course: 07/22 22:32 Patient arrived in ED. es 22:32 Ignacio Mckenzie MD is Private Physician. es 22:35 Neil Angelo MD is Attending Physician. rn 22:40 Triage completed. kb3 22:40 Arm band placed on right wrist. kb3 22:54 Bhavana Hill, RN is Primary Nurse. bb 22:55 Patient has correct armband on for positive identification. Bed in low position. Call bb light in reach. Side rails up X2. Adult w/ patient. Pulse ox on. NIBP on. Warm blanket given. 22:55 No provider procedures requiring assistance completed. bb 23:00 Inserted saline lock: 20 gauge in left antecubital area, using aseptic technique. bb 07/23 00:59 IV discontinued, intact, bleeding controlled, No redness/swelling at site. Pressure kl dressing applied. Administered Medications: 07/22 23:00 Drug: Phenergan (promethazine) 12.5 mg Route: IVP; Site: left antecubital; kl 23:05 Drug: Dilaudid (HYDROmorphone) 1 mg Route: IVP; Site: left antecubital; kl 23:05 Drug: Flexeril (cyclobenzaprine) 10 mg Route: PO; kl 07/23 00:08 Drug: Dilaudid (HYDROmorphone) 1 mg Route: IVP; Site: left antecubital; bb Medication: 07/22 22:55 VIS not applicable for this client. bb Outcome: 07/23 00:37 Discharge ordered by . rn 00:59 Discharged to home via wheelchair, with significant other. 00:59 Condition: improved 00:59 Discharge instructions given to patient, Instructed on discharge instructions, follow up and referral plans. Demonstrated understanding of instructions, follow-up care. 00:59 Patient left the ED. Signatures: Mar Pyle RN RN kl Salyer, Edna es Ballard, Brenda, RN RN bb Nieto, Roman, MD MD rn Bradberry, Kelly, RN RN kb3
[2022-07-23 05:16] VITALS: TEMP 97.3
[2022-07-23 05:25] VITALS: BP 158/89; O2SAT 99
== END 2022-07-23 00:59 | disposition home or self-care (01) ==
LOC: ER 22:30
DX: M54.17 Radiculopathy, lumbosacral region (principal)
CPT/HCPCS: 96375; 96374; 99284; J2550; J1170 ×2

== ENCOUNTER 2022-07-29 16:51 | Emergency (ER) | payer OTHER ==
--- OUTSIDE RECORDS SUMMARY | 2022-07-29 16:53 | XMS REPORT | Clinical Summary ---
:1960 Author Organization [facility] MD [facility] Address [address] [place] [address] Care Team Providers Name Role Phone Madison Manning Unavailable Allergies Not on File Medications Not on file Active Problems Not on file Encounters Date Type Specialty Care Team Description 05/25/2022 Ancillary Procedure Radiology Cancer 03/30/2022 Ancillary Procedure Radiology Cancer 03/30/2022 Ancillary Procedure Radiology Cancer 03/25/2022 Lab Requisition Liban Javed MD Divatia, Mukul K, MD after 07/29/2021 Social History Tobacco Use Types Packs/Day Years [...] Cancer Resul ts for this PELVIS PM [employer] OFFICER procedure are i n the results section. OSI CHEST Routine 08/22/2021 12:46 Cancer Results for this PM CDT procedure are i n the results section. PATHOLOGY OUTSIDE Routine 08/21/2021 Results fo r this INTERPRETATION procedure are in the results section. OSI ABDOMEN Routine 08/19/2021 12:47 Cancer Results for this PM CDT procedure are i n the results section. 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 [id number], 38 SS, 0 BLOCKS, 0 USS 08/21/2021 03/25/2022 6:58 PM CDT Addendum 1 Outside ([id number], 38 SS, 0 BLOCKS, 0 USS, collected on 08/21/2021): 03/26/2022 [facility] Addendum 6:58 PM electronic ally C. 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 No malignancy identified. MD Paty on 03/26/2022 at 6:58 PM Diagnosis Outside ([id number], 38 SS, 0 BLOCKS, 0 USS, collected on 08/21/2021): 03/26/2022 [facility] Electronically 6:58 PM signed by [...] CD34 highlights vascular channels. 03/26/2022 [facility] 6:58 PM The overall findings [...] Disclaimer "Some tests reported 03/26/2022 [facility] here may have been 6:58 PM developed and CDT performance characteristics determined by [facility]. These tests have [...] City/State/ZIP Code Phon e Number [facility] [place] [address] [address] OSI Abdomen (08/19/2021 12:47 PM CDT) Specimen (Source) Anatomical Location Collection Method / Collectio n Time Received Time / Laterality Volume Narrative Systemgenerated, Documentation - 022 12:47 PM CDT Study acquired at another institution. For comparison only. No Alan originated interpretation requested or a vailable. Candida Fajardo MD IMG OUTSIDE IMAGE ORDERABLES after 07/29/2021 Insurance Payer Benefit Plan / Subscriber ID Effective Dates Phone Addre ss Type Group [employer] MANAGED A[employer] O [id number] 2014-Present [place] [id number] [facility] [place] [address] Care Teams Property Analyst Relationship Specialty Start Date End Date Madison Manning PCP - External Follow Up A 03/19/22
--- OUTSIDE RECORDS SUMMARY | 2022-07-29 16:56 | XMS REPORT | Continuity of Care Document ---
:1960 Author Organization [facility] t Address [address] [place] [address] Care Team Providers Name Role Phone Carey Koo MD Primary Care Physician SYSTEM, PROVIDER NOT IN Attending Clinician Unavailable LISSY WILSON Attending Clinician Unavailable MARIAN CUTLER Attending Clinician Unavailable Carlos ADAM, Joie Katz Attending Clinician Sandor NUNN, Alfred Espinoza Attending Clinician [phone] Nicko Palacios MD Attending Clinician Shelly Ayala RN Attending Clinician Unavailable Liban Javed MD Attending Clinician Jed Reardon MD Attending Clinician Unavailable [email or web address]_S Attending Clinician Unavailable Renu ADAM, Candelaria Love Attending Clinician [phone] Trudy Vernon RN Attending Clinician Unavailable SLY ARREDONDO III Attending Clinician Unavailable King COTY MD, Sly Fragoso Attending Clinician Christie Mehta Attending Clinician Simone ADAM, Sommer Donovan Attending Clinician [phone] Edmund Galindo NP, Mel Styles Attending Clinician Kylie SAUCEDA, Staci Attending Clinician Unavailable MD CANDELARIA SEARS Attending Clinician Unavailable Irene Rose MA Attending Clinician Unavailable Scotty ADAM, Candida Attending Clinician Rm Medina MD Attending Clinician Brian ADAM, Jhoan Santos Attending Clinician [phone] Mary Lou6 Russell ADAM, James Cruz Attending Clinician MD CANDIDA OLIVAREZ Attending Clinician Unavailable Kaylah An RN Attending Clinician Unavailable CHU MENA Attending Clinician Unavailable MD CHU MENA Attending Clinician Unavailable JACQUI MENESES Attending Clinician Unavailable KATEY MITCHELL Attending Clinician Unavailable Pcp, Patient Does Not Have A Attending Clinician [phone] Lab, Adc Fam Pob I Attending Clinician Unavailable Doctor Unassigned, Luke Attending Clinician Unavailable BROWN DUNLAP Attending Clinician [...] Expiration Date S loreta [employer]ETNA CHOICE POS [id number] 2013 00:00:00 II AETNA (POS) [id number] 2013 00:00:00 Problems Condition Condition Condition Status [...] Added automatic ally from request for surgery [id number] Small Small Disease Active 2020-11 Methodi bowel [...] [facility] 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 Natural father Heart failure [facility] Grandchild Crohn's disease [facility] Natural mother Alzheimer's disease M [facility] Natural mother Dementia [facility] Natural sister [facility] Family member Celiac disease [facility] Family member Colon cancer [facility] Family member Esophageal cancer [facility] Family member Pancreatic cancer [facility] Family member Stomach cancer [facility] Social History Social Habit Start Date Stop Date Quantity Comments Source Exposure to Not sure University SARS-CoV-2 [place] [facility] (event) [facility] Alcohol Std Drinks History [facility] Health Alcohol Binge History [facility] Health Alcohol Comment Alcohol intake 2022-06-03 2022-06-03 Current [facility] 00:00:00 00:00:00 non-drinker of Hospital alcohol (finding) History SDOH 2021-09-04 2021-09-04 1 [facility] Alcohol Frequency 00:00:00 00:00:00 Tobacco use and 2020-10-30 2020-10-30 Smokeless tobacco [facility] exposure 00:00:00 00:00:00 non-user Hospital Sex Assigned At [birth year] Universit y of 00:00:00 00:00:00 [place] [facility] Smoking Status Start Date Stop Date Source Unknown if ever smoked [facility] Never smoked tobacco [facility]ital Medications Ordered Filled Start Stop [...] daily. l BLANCA DIP-CHONDRO IT-C-MN ORAL) cholecalcif 2021-0 Yes 2{tbl} QD Take 2 Me thodi latha, 8-[address] vitamin D3, 14:15: mouth Hospi ta (VITAMIN D3 11 daily. l ORAL) 2,000 IU qd ferrous 2021-0 Yes 1{tbl} Q.5D Take 1 Method i sulfate 8-[address] (IRON ORAL) 14:15: mouth 2 Hos bessy 11 (two) l times a day. polyethylen 2021-0 Yes 17g Q24H Take 17 g M ethodi e glycol 8-[address] (MIRALAX) 14:15: daily as [facility] 17 gram 11 needed. l packet docusate 0 Yes 3{capsu QD Take 3 Meth mirela sodium 8-10 le} capsules st (STOOL 14:15: by mouth Hospita SOFTENER 11 every l ORAL) evening. multivitami 0 Yes 1{tbl} QD Take 1 Me thodi n with 8-10 tablet by minerals 14:15: mouth Hospita tablet 11 daily. l glucosamine 2021-0 Yes 2{tbl} QD Take 2 Me thodi /chondroiti 8-[address] n/C/rosaura 14:15: mouth Hospita (GLUCOSAM 11 daily. l BLANCA DIP-CHONDRO IT-C-MN ORAL) cholecalcif 2021-0 Yes 2{tbl} QD Take 2 Me thodi latha, 8-[address] vitamin D3, 14:15: mouth Hospi ta (VITAMIN D3 11 daily. l ORAL) 2,000 IU qd ferrous 2021-0 Yes 1{tbl} Q.5D Take 1 Method i sulfate 8-[address] (IRON ORAL) 14:15: mouth 2 Hos bessy 11 (two) l times a day. polyethylen 2-0 Yes 17g Q24H Take 17 g M ethodi e glycol 8-[address] (MIRALAX) 14:15: daily as [facility] 17 gram 11 needed. l packet cholecalcif 2021-0 Yes 2{tbl} QD Take 2 Me [...] 17 gram 11 needed. l packet docusate 0 Yes 3{capsu QD Take 3 Meth mierla sodium 8-10 le} capsules st (STOOL 14:15: [...] daily. l BLANCA DIP-CHONDRO IT-C-MN ORAL) diclofenac 2021-0 Yes 75mg Q.5D Take 75 mg M ethodi (VOLTAREN) 7-[address] 75 MG EC 00:00: (two) Hospita tablet 00 times a l day. diclofenac 2021-0 Yes 75mg Q.5D Take 75 mg M ethodi (VOLTAREN) 7-[address] 75 MG EC 00:00: (two) Hospita tablet 00 times a l day. diclofenac 2-0 Yes 75mg Q.5D Take 75 mg M ethodi (VOLTAREN) 7-[address] 75 MG EC 00:00: (two) Hospita tablet 00 times a l day. benzonatate 2021-0 Yes [id number] 100mg Take 1 Univers 100 mg 1-13 capsule by ity of capsule 00:00: mouth [place] 00 every 8 Medical (eight) Branch hours as needed for Cough. bromphenira 2021-0 Yes [id number] 5mL Take 5 mL Univers mine-pseudo 1-13 by mouth 4 it y of ephedrine-D 00:00[place] ([place] (BROMFED 00 times Medical DM) 2-30-10 daily as Bran ch mg/5 mL needed for syrup Congestion /Allergies . benzonatate Yes [id number] 100mg Take 1 Univers 100 mg 1-13 capsule by ity of capsule 00:00: mouth [place] 00 every 8 Medical (eight) Branch hours as needed for Cough. bromphenira Yes [id number] 5mL Take 5 mL Univers mine-pseudo 1-13 by mouth 4 it y of ephedrine-D 00:00: ([place] (BROMFED 00 times Medical DM) 2-30-10 daily as Bran ch mg/5 mL needed for syrup Congestion /Allergies . gabapentin 2020-11 Yes 1{capsu Q.[id number] Take 1 Methodi (NEURONTIN) 2-14 le} [id number] capsule by st 400 mg 00:00: 3D mouth 3 Hospita capsule 00 (three) l times a day. gabapentin 2020-11 Yes 1{capsu Q.[id number] Take 1 Methodi (NEURONTIN) 2-14 le} [id number] capsule by st 400 mg 00:00: 3D mouth 3 Hospita capsule 00 (three) l times a day. gabapentin 2020-11 Yes 1{capsu Q.[id number] Take 1 Methodi (NEURONTIN) 2-14 le} [id number] capsule by st 400 mg 00:00: 3D mouth 3 Hospita capsule 00 (three) l times a day. No known 2020-11 No No known [facility] medications 0-27 medication He alth 20:42: s 35 No known 2020-11 No No known [facility] medications 0-27 medication He alth 20:42: s 35 gabapentin 2020-11- No 300mg Q.[id number] Take 300 Methodi (NEURONTIN) 0-15 10-[id number] 300 mg 13:28: 00:00 3D mouth 3 Hospita capsule 05 :00 (three) l times a day. gabapentin 2020-11- No 300mg Q.[id number] Take 300 Methodi (NEURONTIN) 0-15 10-[id number] 300 mg 13:28: 00:00 3D mouth 3 Hospita capsule 05 :00 (three) l times a day. gabapentin 2020-11 No 300mg Q.[id number] Take 300 Methodi (NEURONTIN) 0-15 10-[id number] 300 mg 13:28: 00:00 [...] (eight) hours as needed. Post-op medication gabapentin 2020-11- No 400mg Q8H Take 1 Met hodi [...] times a day for 30 days. gabapentin 2020-11- No 400mg Q8H Take 1 Met hodi (NEURONTIN) 0-15 11-[address] 400 mg 00:00: 05:59 (400 mg Hospita capsule 00 :00 total) by l mouth every 8 (eight) hours for 30 days. losartan 2020-11- No 100mg QD Take 1 Metho di (COZAAR) 0-15 11-[address] 100 MG 00:00: 05:59 (100 mg Hospita tablet 00 :00 total) by l mouth daily for 30 days. hydroCHLORO 2020-11- No 12.5mg QD Take 1 M ethodi thiazide 0-15 11-[address] (MICROZIDE) 00:00: 05:59 (12.5 mg H ospita 12.5 mg 00 :00 total) by l capsule mouth daily for 30 days. metoclopram 2020-11- No 5mg Q.25D Take 1 Me thodi [...] l mouth daily for 30 days. hydroCHLORO 2020-11- No 12.5mg QD Take 1 M ethodi thiazide 0-15 11-[address] (MICROZIDE) 00:00: 05:59 (12.5 mg H ospita 12.5 mg 00 :00 total) by l capsule mouth daily for 30 days. metoclopram 2020-11- No 5mg Q.25D Take 1 Me thodi ran 0-15 11-15 tablet (5 st (Reglan) 5 00:00: 05:59 mg total) H ospita MG tablet 00 :00 by mouth 4 l (four) times a day for 30 days. ibuprofen 2020-11- No [id number] 600mg Q6H Take 1 Methodi (ADVIL) 600 0-01 10-[address] MG tablet 00:00: 00:00 (600 mg [facility] 00 :00 total) by l mouth every 6 (six) hours as needed for mild pain (postopera tive pain) for up to 30 days. ibuprofen 2020-11- No [id number] 600mg Q6H Take 1 Methodi (ADVIL) 600 0-01 10-[address] MG tablet 00:00: 00:00 (600 mg [facility] 00 :00 total) by l mouth every 6 (six) hours as needed for mild pain (postopera tive pain) for up to 30 days. ibuprofen 2020-11- No [id number] 600mg Q6H Take 1 Methodi (ADVIL) 600 0-01 10-[address] MG tablet 00:00: 00:00 (600 mg [facility] 00 :00 total) by l mouth every 6 (six) hours as needed for mild pain (postopera tive pain) for up to 30 days. estradioL Yes Follow Method i (Estrace) 8-[address] 0.01 % (0.1 00:00: instructio Hospita mg/gram) 00 ns. Insert l vaginal one finger cream tip unit into vagina nightly x 2wks; after two weeks use 3x weekly at night estradioL Yes Follow Method i (Estrace) [address] 0.01 % (0.1 00:00: instructio [...] per tablet (eight) hours as needed. HYDROcodone 2020-1 Yes 1{tbl} Q8H Take 1 Me thodi -acetaminop 1-[address] hen (NORNJ) 00:00: mouth Hospi ta 7.5-325 mg 00 every 8 l per tablet (eight) hours as needed. promethazin 2020-0 Yes 1-2 tabs Me thodi [...] Comments Source Systolic blood 2021-11-27 157 mm[Hg] [facility] 22:07:00 [facility] Diastolic blood 2021-11-27 92 mm[Hg] [facility] pressure 22:07:00 [facility] Heart rate 2021-11-27 117 /min [facility] 22:07:00 [facility] Body temperature 2021-11-27 39.67 Claudine last dose of [facility] 22:07:00 Motrin this AM [facility] Respiratory rate 2021-11-27 16 /min [facility] 22:07:00 [facility] Body height 2021-11-27 190.5 cm [facility] 22:07:00 [facility] Body weight 2021-11-27 94.518 kg [facility] 22:07:00 [facility] BMI 2021-11-27 26.05 kg/m2 [facility] 22:07:00 [facility] Oxygen saturation 2021-11-27 97 /min [facility] in Arterial blood 22:07:00 [facility] by Pulse oximetry [place] Systolic blood 2021-09-04 147 mm[Hg] [facility] pressure 19:12:00 Diastolic blood 2021-09-04 72 mm[Hg] [facility] pressure 19:12:00 Heart rate 2021-09-04 94 /min [facility] [place] [facility] 19:12:00 Body temperature 2021-09-04 36.5 Claudine [facility] 19:12:00 Body height 2021-09-04 182.9 cm [facility] 19:12:00 Body weight 2021-09-04 92.987 kg [facility] 19:12:00 BMI 2021-09-04 27.80 kg/m2 [facility] 19:12:00 Systolic blood 2022-06-24 135 mm[Hg] [facility] pressure 19:11:00 [facility] Diastolic blood 2022-06-24 72 mm[Hg] [facility] pressure 19:11:00 Hospital Heart rate 2022-06-24 88 /min [facility] 19:11:00 Hospital Respiratory rate 2022-06-24 18 /min [facility] 19:11:00 [facility] Body height 2022-06-24 182.9 cm [facility] 19:11:00 Hospital Body weight 2022-06-24 97.07 kg [facility] 19:11:00 Hospital BMI 2022-06-24 29.02 kg/m2 [facility] 19:11:00 Hospital Oxygen saturation 2022-06-24 93 /min [facility] in Arterial blood 19:11:00 Hospital by Pulse oximetry Body temperature 2021-11-03 36.44 Claudine [facility] 16:20:00 Hospital BP Systolic 2019-11-01 144 mm[Hg] [...] 10:58:00 O2 SAT 2019-10-18 98 % Source: [facility] 10:58:00 Procedures Procedure Date / Time Performing Clinician Source Performed OSI CT ABDOMEN AND PELVIS 2021-12-30 05:35:00 [facility] ABD/PELVIC EXTERNAL 2021-12-29 19:17:03 Nicko Palacios [facility] STUDY POC URINALYSIS DIPSTICK 2021-12-23 17:14:00 Candelaria Sears [facility] MEASURE POST VOID RESIDUAL 2021-12-23 16:45:00 Candelaria Sears [facility] POCT MOLECULAR FLU 2021-11-27 22:21[facility]REP 2021-11-27 22:18:00 [facility] [place] AN ELECTIVE 2021-11-03 13:46:00 Radha Phillips Ho spital ENDOTRACHEAL AIRWAY COLPORRHAPHY, COMBINED 2021-11-03 13:29:00 Candelaria Sears [facility] ANTEROPOSTERIOR Love URINE CULTURE 2021-10-29 23:46:00 [facility] COMPREHENSIVE METABOLIC 2021-10-29 22:55:00 [facility] PANEL HC COMPLETE BLD COUNT 2021-10-29 22:55:00 [facility] W/AUTO DIFF HEMOGLOBIN A1C 2021-10-29 22:55:00 [facility] ESTIMATED GFR 2021-10-29 22:55:00 [facility] URINALYSIS SCREEN AND 2021-10-29 22:50:00 [facility] MICROSCOPY, WITH REFLEX TO CULTURE COVID-19 QUALITATIVE 2021-10-29 22:01:00 Candelaria Sears [facility] RT-PCR Love MAGNESIUM LEVEL 2021-08-29 09:56:00 Jhoan Torres Ho spital Danielle PHOSPHORUS LEVEL 2021-08-29 09:56:00 Jhoan Torres H ospital Danielle CBC HEMOGRAM 2021-08-29 09:56:00 Jhoan Torres spital [place]le BASIC METABOLIC PANEL 2021-08-29 09:56:00 [facility] ESTIMATED GFR 2021-08-29 09:56:00 Jhoan Torres spital Danielle MAGNESIUM LEVEL 2021-08-28 08:58:00 Jhoan Torres Ho spital Danielle PHOSPHORUS LEVEL 2021-08-28 08:58:00 Jhoan Torres ospital Danielle CBC HEMOGRAM 2021-08-28 08:58:00 Jhoan Torres spital Danielle BASIC METABOLIC PANEL 2021-08-28 08:58:00 Jhoan Torres [facility] Danielle ESTIMATED GFR 2021-08-28 08:58:00 Jhoan Torres spital Danielle MAGNESIUM LEVEL 2021-08-27 10:10:00 Jhoan Torres spital Danielle PHOSPHORUS LEVEL 2021-08-27 10:10:00 Jhoan Torres ospital Danielle CBC HEMOGRAM 2021-08-27 10:10:00 Jhoan Torres spital Danielle BASIC METABOLIC PANEL 2021-08-27 10:10:00 [facility] Danielle ESTIMATED GFR 2021-08-27 10:10:00 Jhoan Torres spital Danielle HC COMPLETE BLD COUNT 2021-08-26 09:24:00 IrisMirna [facility] W/AUTO DIFF BASIC METABOLIC PANEL 2021-08-26 09:24:00 IrisMirna [facility] MAGNESIUM LEVEL 2021-08-26 09:24:00 IrisMirna [facility] PHOSPHORUS LEVEL 2021-08-26 09:24:00 IrisMirna [facility] ESTIMATED GFR 2021-08-26 09:24:00 Rm Medina Ho spital HC COMPLETE BLD COUNT 2021-08-25 10:07:00 IrisMirna [facility] W/AUTO DIFF BASIC METABOLIC PANEL 2021-08-25 10:07:00 Iris, Mirna Brittany [facility] MAGNESIUM LEVEL 2021-08-25 10:07:00 Iris, [facility]na [facility] PHOSPHORUS LEVEL 2021-08-25 10:07:00 Iris, Mirna Brittany [facility] ESTIMATED GFR 2021-08-25 10:07:00 Rm Medina spital HC COMPLETE BLD COUNT 2021-08-24 10:03:00 Iris, Mirna Brittany [facility]/AUTO DIFF BASIC METABOLIC PANEL 2021-08-24 10:03:00 Iris, Mirna Brittany [facility] LACTIC ACID LEVEL 2021-08-24 10:03:00 Iris, Mirna Brittany Method [facility] MAGNESIUM LEVEL 2021-08-24 10:03:00 Iris, Mirna [facility] PHOSPHORUS LEVEL 2021-08-24 10:03:00 Iris, Mirna Brittany [facility] ESTIMATED GFR 2021-08-24 10:03:00 Rm Medina spital SMEAR REVIEW 2021-08-24 10:03:00 Rm Medina spital HC COMPLETE BLD COUNT 2021-08-23 10:23:00 Iris, Mirna Soto [facility]/AUTO DIFF BASIC METABOLIC PANEL 2021-08-23 10:23:00 Iris, Mirna Soto [facility] LACTIC ACID LEVEL 2021-08-23 10:23:00 Iris, Mirna Brittany Method [facility] MAGNESIUM LEVEL 2021-08-23 10:23:00 Iris, Mirna Britt[facility] PHOSPHORUS LEVEL 2021-08-23 10:23:00 Iris, Mirna Brittany [facility] ESTIMATED GFR 2021-08-23 10:23:00 Rm Medina spital XR CHEST 1 VW PORTABLE 2021-08-22 19:09:01 Feliciano Strat[facility] COMPLETE BLD COUNT 2021-08-22 18:43:00 [facility]FF [place] COMPREHENSIVE METABOLIC 2021-08-22 18:43:00 Feliciano Stratton [facility] PANEL [place] D-DIMER 2021-08-22 18:43:00 Viral [facility] ospital [place] LACTIC ACID LEVEL 2021-08-22 18:43:00 Viral [facility] [place] MAGNESIUM LEVEL 2021-08-22 18:43:00 Viral [facility] ospital [place] THYROID STIMULATING 2021-08-22 18:43:00 Viral [facility] HORMONE [place] PHOSPHORUS LEVEL 2021-08-22 18:43:00 Viral [facility] [place] ESTIMATED GFR 2021-08-22 18:43:00 Viral [facility] ospital [place] ARTERIAL BLOOD GAS 2021-08-22 18:14:00 Viral [facility] [place] ECG 12-LEAD 2021-08-22 18:06:59 Viral [facility] ospital [place] POC GLUCOSE 2021-08-22 17:51:00 Rm Medina spital OSI CHEST 2021-08-22 17:46:00 Candida Olivarez [facility] HC COMPLETE BLD COUNT 2021-08-22 10:26:00 Mirna Simmons [facility] W/AUTO DIFF BASIC METABOLIC PANEL 2021-08-22 10:26:00 Mirna Simmons [facility] LACTIC ACID LEVEL 2021-08-22 10:26:00 Mirna Simmons [facility] ESTIMATED GFR 2021-08-22 10:26:00 Rm Medina Ho spital [place] AN ELECTIVE 2021-08-21 21:25:00 James Wells [facility] ENDOTRACHEAL AIRWAY LAPAROTOMY, EXPLORATORY 2021-08-21 21:15:00 Lissy Wilson [facility] XR ABDOMEN 1 VW PORTABLE 2021-08-21 13:30:[address] [facility] SURGICAL PATHOLOGY REQUEST 2021-08-21 13:22:00 Rm Medina [facility] COVID-19 ANTI-SPIKE IGG 2021-08-21 10:28:[address] [facility] ANTIBODY TITER Jose Antonio COMPLETE BLD COUNT 2021-08-21 10:28:00 Mirna Simmons [facility] W/AUTO DIFF BASIC METABOLIC PANEL 2021-08-21 10:28:00 Mirna Simmons [facility] COVID-19 SEROLOGY PATIENT 2021-08-21 10:28:00 Cj Norton [facility] SURVEILLANCE Jose Antonio ESTIMATED GFR 2021-08-21 10:28:00 Rm Medina Ho spital LACTIC ACID LEVEL 2021-08-21 10:28:00 Errol [facility] Jose Antonio PATHOLOGY OUTSIDE 2021-08-21 00:00:00 Jed Reardon [facility] INTERPRETATION [facility] HC COMPLETE BLD COUNT 2021-08-20 08:53:00 Mirna Simmons [facility] W/AUTO DIFF BASIC METABOLIC PANEL 2021-08-20 08:53:00 Mirna Simmons [facility] ESTIMATED GFR 2021-08-20 08:53:00 Rm Medina Ho spital XR ABDOMEN 1 VW PORTABLE 2021-08-19 20:52:[address] [facility] LACTIC ACID LEVEL, SEPSIS 2021-08-19 20:37:[address] [facility] - NOW AND REPEAT 2X EVERY 3 HOURS OSI ABDOMEN 2021-08-19 17:47:00 Candida Olivarez [facility] er Center XR ABDOMEN 1 VW PORTABLE 2021-08-19 13:40:00 Porciuncula [facility] Jesús Miner CARCINOEMBRYONIC ANTIGEN 2021-08-19 13:20:[address] [facility] (CEA) CANCER ANTIGEN 19-9 2021-08-19 13:20:00 Andrade Westfall [facility] PARTIAL THROMBOPLASTIN 2021-08-19 13:20:[address] [facility] TIME (PTT) Pastoral LACTIC ACID LEVEL 2021-08-19 13:20:00 [facility] PROTHROMBIN TIME WITH INR 2021-08-19 10:16:00 [facility] PARTIAL THROMBOPLASTIN 2021-08-19 10:16:00 [facility] TIME (PTT) COVID-19 QUALITATIVE 2021-08-19 08:42:00 [facility] RT-PCR Sree LACTIC ACID LEVEL 2021-08-19 08:36:00 [facility] Sree HC COMPLETE BLD COUNT 2021-08-19 08:36:00 [facility] W/AUTO DIFF Sree BASIC METABOLIC PANEL 2021-08-19 08:36:00 [facility] Sree MAGNESIUM LEVEL 2021-08-19 08:36:00 Wally Ernstist Ho spital Sree PHOSPHORUS LEVEL 2021-08-19 08:36:00 [facility] TYPE AND SCREEN 2021-08-19 08:36:00 Wally Ernstist Ho spital Sree ESTIMATED GFR 2021-08-19 08:36:[address] [facility] ospital PROTHROMBIN TIME WITH INR 2021-08-19 08:36:00 [facility] PARTIAL THROMBOPLASTIN 2021-08-19 08:36:00 [facility] ANTIGEN 19-9 2021-08-19 08:36:00 [facility] XR CHEST EXTERNAL STUDY 2021-08-19 03:07:00 [facility] CT ABD/PELVIC EXTERNAL 2021-08-19 01:25:43 Nicko Palacios [facility] STUDY CT ABD/PELVIC EXTERNAL 2021-08-19 01:25:00 [facility] STUDY POC URINALYSIS DIPSTICK 2021 15:51:00 Candelaria Sears [facility] Love History of Exploratory [facility]olecystectomy [facility] Laparoscopic [facility] Hysterectomy [facility] History of Knee [facility] Replacement [facility] Hip Replacement [facility] History of Simple Bunion [facility] Exostectomy (Silver Procedure) Plan of Care Planned Activity Planned Date Details Comments Source Future Scheduled 2022-07-23 HEPATITIS B VACCINES Met [facility] Test 13:49:47 (1 of 3 - 3-dose series) [code = HEPATITIS B VACCINES (1 of 3 - 3-dose series)] Future Scheduled 2022-07-23 Hepatitis C screening [facility] Test 13:49:47 (procedure) [code = 752244050] Future Scheduled 2022-07-[address] [facility] Test 13:49:47 malignant neoplasm of cervix (procedure) [code = 866463250] Future Scheduled 2022-07-[address] [facility] Test 13:49:47 SCREENING [code = BREAST CANCER SCREENING] Future Scheduled 2022-07-23 COLONOSCOPY SCREENING [facility] Test 13:49:47 [code = COLONOSCOPY SCREENING] Future Scheduled 2022-07-23 SHINGLES VACCINES (1 Met [facility] Test 13:49:47 of 2) [code = SHINGLES VACCINES (1 of 2)] Future Scheduled 2022-07-23 COVID-19 VACCINE (3 - [facility] Test 13:49:47 Booster for Moderna series) [code = COVID-19 VACCINE (3 - Booster for Moderna series)] Future Scheduled 2022-07-23 INFLUENZA VACCINE [facility] Test 13:49:47 [code = INFLUENZA VACCINE] Future Scheduled 2022-07-22 HEPATITIS B VACCINES Met [facility] Test 22:33:11 (1 of 3 - 3-dose series) [code = HEPATITIS B VACCINES (1 of 3 - 3-dose series)] Future Scheduled 2022-07-22 Hepatitis C screening [facility] Test 22:33:11 (procedure) [code = 105622506] Future Scheduled 2022-07-[address] [facility] Test 22:33:11 malignant neoplasm of cervix (procedure) [code = 658048960] Future Scheduled 2022-07-[address] [facility] Test 22:33:11 SCREENING [code = BREAST CANCER SCREENING] Future Scheduled 2022-07-22 COLONOSCOPY SCREENING Me [facility] [place] Test 22:33:11 [code = COLONOSCOPY SCREENING] Future Scheduled 2022-07-22 SHINGLES VACCINES (1 Met [facility] Test 22:33:11 of 2) [code = SHINGLES VACCINES (1 of 2)] Future Scheduled 2022-07-22 COVID-19 VACCINE (3 - Me [facility] [place] Test 22:33:11 Booster for Moderna series) [code = COVID-19 VACCINE (3 - Booster for Moderna series)] Future Scheduled 2022-07-22 INFLUENZA VACCINE [facility] Test 22:33:11 [code = INFLUENZA VACCINE] Future Scheduled 2022-07-09 HEPATITIS B VACCINES Met [facility] Test 11:39:05 (1 of 3 - 3-dose series) [code = HEPATITIS B VACCINES (1 of 3 - 3-dose series)] Future Scheduled 2022-07-09 Hepatitis C screening Me [facility] [place] Test 11:39:05 (procedure) [code = 139714595] Future Scheduled 2022-07-[address] [facility] Test 11:39:05 malignant neoplasm of cervix (procedure) [code = 272885958] Future Scheduled 2022-07-[address] [facility] Test 11:39:05 SCREENING [code = BREAST CANCER SCREENING] Future Scheduled 2022-07-09 COLONOSCOPY SCREENING [facility] Test 11:39:05 [code = COLONOSCOPY SCREENING] Future Scheduled 2022-07-09 SHINGLES VACCINES (1 Met [facility] Test 11:39:05 of 2) [code = SHINGLES VACCINES (1 of 2)] Future Scheduled 2022-07-09 COVID-19 VACCINE (3 - Me [facility] [place] Test 11:39:05 Booster for Moderna series) [code = COVID-19 VACCINE (3 - Booster for Moderna series)] Future Scheduled 2022-07-09 INFLUENZA VACCINE Method [facility] Test 11:39:05 [code = INFLUENZA VACCINE] Encounters Start End Encounter Admission Attending Care Care Encounter Source Date/Time Date/Time Type Type Clinicians Facility Department ID 2022-04-01 Outpatient SYSTEM, [facility] [id number] 10:41:31 PROVIDER Barney o n 2022-02-06 Outpatient [facility] [id number] [place] 11:18:23 [id number] [facility] 2021-08-21 Outpatient STEVE, [facility] [id number] [place] 13:19:11 LISSY [facility] 2021-08-19 Outpatient VAN ONEIL, [facility] [id number] [place] 12:52:48 [facility] 2022-06-24 2022-06-24 Office Joie Gonzalez 1.2.840.1 [id number] Methodi 14:15:00 14:45:00 Visit Alfred Patten 11034.1.[address] 3.430.2.7 Hospit a .3.954187 l .8 2022-06-24 2022-06-24 Office Joie Gonzalez 1.2.840.1 104 [id number] Methodi 14:15:00 14:45:00 Visit Alfred Patten 18995.1.[address] 3.430.2.7 Hospit a .3.117388 l .8 2022-06-17 2022-06-17 [facility], 1.2.840.1 [id number] 2099 [id number] Methodi 11:08:12 23:59:00 Encounter Nicko 84818.1.[address] 3.430.2.7 Hospit a .3.583800 l .8 2022-06-17 2022-06-17 [facility], 1.2.840.1 [id number] 2099 [id number] Methodi 11:08:12 23:59:00 Encounter Nicko 41271.1.[address] 3.430.2.7 Hospit a .3.546734 l .8 2022-06-16 2022-06-16 [facility], 1.2.840.1 [id number] 2099 [id number] Methodi 12:22:00 23:59:00 Encounter Nicko 89154.1.[address] 3.430.2.7 Hospit a .3.523009 l .8 2022-06-16 2022-06-16 [facility], 1.2.840.1 [id number] 2099 [id number] Methodi 12:22:00 23:59:00 Encounter Nicko 87505.1.[address] 3.430.2.7 Hospit a .3.301948 l .8 2022-06-16 2022-06-16 [facility], 1.2.840.1 [id number] 2099 [id number] Methodi 12:17:44 12:21:00 Encounter Nicko 70410.1.[address] 3.430.2.7 Hospit a .3.481515 l .8 2022-06-16 2022-06-16 [facility], 1.2.840.1 [id number] 2099 [id number] Methodi 12:17:44 12:21:00 Encounter Nicko 63110.1.[address] 3.430.2.7 Hospit a .3.215581 l .8 2022-06-16 2022-06-16 [facility], 1.2.840.1 [id number] 2099 [id number] Methodi 12:05:15 12:16:00 Encounter Nicko 18928.1.[address] 3.430.2.7 Hospit a .3.306148 l .8 2022-06-16 2022-06-16 [facility], 1.2.840.1 [id number] 2099 [id number] Methodi 12:05:15 12:16:00 Encounter Nicko 49947.1.[address] 3.430.2.7 Hospit a .3.598348 l .8 2022-06-16 2022-06-16 [facility], 1.2.840.1 [id number] 72448 Methodi 00:00:00 00:00:00 Only Nicko 02225.1.[address] 3.430.2.7 Hospit a .3.335690 l .8 2022-06-16 2022-06-16 [facility], 1.2.840.1 [id number] 33002 20787 Methodi 00:00:00 00:00:00 Only Nicko 50725.1.[address] 3.430.2.7 Hospit a .3.375062 l .8 2022-06-03 2022-06-03 Leona Ayala, 1.2.840.1 [id number] 2100 597755 Methodi 00:00:00 00:00:[address] 3.430.2.7 Hospit a .3.280008 l .8 2022-06-03 2022-06-03 Telephone Jamie, 1.2.840.1 [id number] 2100 063737 Methodi 00:00:00 00:00:[address] 3.430.2.7 Hospit a .3.339756 l .8 2022-05-25 2022-05-25 Ancillary EL 1.2.840.1 [id number] 1094 016443 Univers 23:30:00 23:35:00 Procedure 11039.1.1 it y of 3.412.2.7 [place] .3.509826 MD Adam [facility] 2022-05-25 2022-05-25 Ancillary 1.2.840.1 [id number] 1094 127798 Univers 23:30:00 23:35:00 Procedure 42436.1.1 it y of 3.412.2.7 [place] .3.115302 MD Adam [facility] 2022-03-30 2022-03-30 Ancillary EL 1.2.840.1 [id number] 1092 745932 Univers 20:05:00 20:10:00 Procedure 24737.1.1 it y of 3.412.2.7 [place] .3.805492 MD Adam [facility] 2022-03-30 2022-03-30 Ancillary 1.2.840.1 [id number] 1092 195929 Univers 20:05:00 20:10:00 Procedure 20663.1.1 it y of 3.412.2.7 [place] .3.167885 MD Rivera8 [facility] 2022-03-30 2022-03-30 Ancillary EL 1.2.840.1 [id number] 1092 487106 Univers 20:00:00 20:05:00 Procedure 95719.1.1 it y of 3.412.2.7 [place] .3.413494 MD Adam [facility] 2022-03-30 2022-03-30 Ancillary 1.2.840.1 [id number] 1092 958416 Univers 20:00:00 20:05:00 Procedure 10766.1.1 it y of 3.412.2.7 [place] .3.014682 MD Rivera8 [facility] 2022-03-25 2022-03-25 Lab Liban Javed 1.2.840.1 8421318 52 [id number] Univers 00:00:00 00:00:00 YuriitiJed Hernandez 25201.1.1 ity of n 3.412.2.7 [place] .3.642162 .8 [facility] 2022-03-25 2022-03-25 Lab Liban Javed 1.2.840.1 1653453 52 [id number] Univers 00:00:00 00:00:00 Jed Velez 06575.1.1 ity of n 3.412.2.7 [place] .3.563302 .8 [facility] 2022-01-01 2022-01-01 Outpatient GC_TNC_Lovi PRIV PRIV [id number] [facility] 06:01:00 06:01:00 tt_S [id number] Medica l 2021-12-23 2021-12-23 Office Renu, 1.2.840.1 [id number] 2099 [id number] Methodi 10:45:00 13:24:32 Visit Candelaria 83270.1.1 402 [facility] 3.430.2.7 Hospit a .3.104076 l .8 2021-12-23 2021-12-23 Office Renu, 1.2.840.1 [id number] 2099 289097 Methodi 10:45:00 13:24:32 Visit Candelaria 84721.1.[address] [place] 3.430.2.7 Hospit a .3.605358 l .8 2021-12-23 2021-12-23 Travel 1.2.840.1 1.2.912.324 0511 696751 Methodi 00:00:00 00:00:[address] 3.430.2.7 0.2.7.3.698 Ho spita .3.764363 084.8 l .8 2021-12-23 2021-12-23 Travel 1.2.840.1 1.2.015.093 7660 629933 Methodi 00:00:00 00:00:[address] 3.430.2.7 0.2.7.3.698 Ho spita .3.479299 084.8 l .8 2021-11-29 2021-11-29 Telephone Trudy Vernon 1.2.840.114 9 [id number] [facility] 00:00:00 00:00:00 LÓPEZ 350.1.13.10 it y [facility] 4.2.7.2.686 Chapo as [phone] [address] 2021-11-27 2021-11-27 Outpatient [facility] 89760 [id number] Univers 16:00:00 16:56:[address] [facility] 2021-11-27 2021-11-27 Urgent Sly Arredondo [facility] 1.2.840.114 [id number] Univers 16:00:00 16:20:00 [facility] 350.1.13.10 ity [facility] 4.2.7.2.686 Chapo as ILA?BLEA [phone] [address] MEDICAL OFFICE BUILDING 2021-11-24 2021-11-24 Telephone Renu 1.2.840.1 [id number] 21 [id number] Methodi 00:00:00 00:00:[address] Love 3.430.2.7 Hospit a .3.736681 l .8 2021-11-24 2021-11-24 Telephone Renu 1.2.840.1 [id number] 21 [id number] Methodi 00:00:00 00:00:[address] Love 3.430.2.7 Hospit a .3.599577 l .8 2021-11-17 2021-11-17 Telephone Renu, 1.2.840.1 [id number] Methodi 00:00:00 00:00:[address] Love 3.430.2.7 Hospit a .3.608890 l .8 2021-11-17 2021-11-17 Telephone Renu, 1.2.840.1 [id number] [id number] Methodi 00:00:00 00:00:[address] Love 3.430.2.7 Hospit a .3.476752 l .8 2021-11-10 2021-11-10 Clinical 1.2.840.1 [id number] 53091 Methodi 11:00:00 12:59:[address] 3.430.2.7 Hospit a .3.729642 l .8 2021-11-10 2021-11-10 Clinical 1.2.840.1 [id number] 33215 Methodi 11:00:00 12:59:[address] 3.430.2.7 Hospit a .3.960661 l .8 2021-11-10 2021-11-10 Travel 1.2.840.1 1.2.488.125 3196 286413 Methodi 00:00:00 00:00:[address] 3.430.2.7 0.2.7.3.698 Ho spita .3.453555 084.8 l .8 2021-11-10 2021-11-10 Travel 1.2.840.1 1.2.330.127 5512 213514 Methodi 00:00:00 00:00:[address] 3.430.2.7 0.2.7.3.698 Ho spita .3.777252 084.8 l .8 2021-11-05 2021-11-05 Clinical 1.2.840.1 576250607 97143 Methodi 11:00:00 12:09:[address] 3.430.2.7 Hospit a .3.402387 l .8 2021-11-05 2021-11-05 Clinical 1.2.840.1 394779452 44817 71944 Methodi 11:00:00 12:09:[address] 3.430.2.7 Hospit a .3.335634 l .8 2021-11-05 2021-11-05 Travel 1.2.840.1 1.2.305.676 8928 234912 Methodi 00:00:00 00:00:[address] 3.430.2.7 0.2.7.3.698 Ho spita .3.834249 084.8 l .8 2021-11-05 2021-11-05 Travel 1.2.840.1 1.2.997.847 1606 111576 Methodi 00:00:00 00:00:[address] 3.430.2.7 0.2.7.3.698 Ho spita .3.337523 084.8 l .8 2021-11-03 2021-11-03 [facility] 1.2.840.1 [id number] 613 0278071 Methodi 05:21:00 16:04:00 Encounter Candelaria 93210.1.[address] Love 3.430.2.7 Hospit a .3.969402 l .8 2021-11-03 2021-11-03 [facility] 1.2.840.1 [id number] 203 [id number] Methodi 05:21:00 16:04:00 Encounter Candelaria 56882.1.[address] Love 3.430.2.7 Hospit a .3.086583 l .8 2021-11-03 2021-11-03 [facility] 1.2.840.1 [id number] 2099 180303 Methodi 07:30:00 10:40:[address] Love 3.430.2.7 Hospit a .3.668845 l .8 2021-11-03 2021-11-03 Surgery Renu, 1.2.840.1 [id number] 2100 558557 Methodi 07:30:00 10:40:[address] Love 3.430.2.7 Hospit a .3.489116 l .8 2021-11-03 2021-11-03 Anesthesia Sommer iNchols 1.2.840. 1 [id number] Methodi 07:29:00 10:23:00 Event Mel Avila 50761.1.[address] 3.430.2.7 Hospit a .3.765067 l .8 2021-11-03 2021-11-03 Anesthesia Sommer Nichols 1.2.840. 1 [id number] Methodi 07:29:00 10:23:00 Event Mel Avila 80687.1.[address] 3.430.2.7 Hospit a .3.600910 l .8 2021-11-03 2021-11-03 Telephone [place], 1.2.840.1 [id number] 21 [id number] Methodi 00:00:00 00:00:00 Shenetrius 17324.1.1 553 s t 3.430.2.7 Hospit a .3.927241 l .8 2021-11-03 2021-11-03 Telephone [place], 1.2.840.1 [id number] 21 [id number] Methodi 00:00:00 00:00:00 Shenetrius 74792.1.1 553 s t 3.430.2.7 Hospit a .3.885622 l .8 2021-10-29 2021-10-29 Pre-Admiss Renu 1.2.840.1 [id number] 2 [id number] Methodi 15:20:00 16:20:00 ion Candelaria 31574.1.[address] Testing Love 3.430.2.7 Hospit a .3.745586 l .8 2021-10-29 2021-10-29 Pre-Admiss Renu, 1.2.840.1 795098782 2 [id number] Methodi 15:20:00 16:20:00 ion Candelaria 28652.1.[address] Testing Love 3.430.2.7 Hospit a .3.216302 l .8 2021-10-29 2021-10-29 Travel 1.2.840.1 1.2.598.547 4004 115007 Methodi 00:00:00 00:00:[address] 3.430.2.7 0.2.7.3.698 Ho spita .3.859483 084.8 l .8 2021-10-29 2021-10-29 Travel 1.2.840.1 1.2.496.726 1035 115007 Methodi 00:00:00 00:00:[address] 3.430.2.7 0.2.7.3.698 Ho spita .3.214237 084.8 l .8 2021-10-27 2021-10-27 Telephone Renu, 1.2.840.1 [id number] 21 [id number] Methodi 00:00:00 00:00:[address] Love 3.430.2.7 Hospit a .3.500117 l .8 2021-10-27 2021-10-27 Telephone Renu, 1.2.840.1 [id number] 21 [id number] Methodi 00:00:00 00:00:[address] Love 3.430.2.7 Hospit a .3.087114 l .8 2021-10-20 2021-10-20 Telephone Renu, 1.2.840.1 [id number] 21 [id number] Methodi 00:00:00 00:00:[address] Love 3.430.2.7 Hospit a .3.422809 l .8 2021-10-20 2021-10-20 Telephone Renu, 1.2.840.1 704227950 21 [id number] Methodi 00:00:00 00:00:[address] Love 3.430.2.7 Hospit a .3.584099 l .8 2021-10-01 2021-10-01 Telephone Renu, 1.2.840.1 826026690 58843104 Methodi 14:15:00 14:30:00 Consult Candelaria 78496.1.[address] Love 3.430.2.7 Hospit a .3.606134 l .8 2021-10-01 2021-10-01 Telephone Renu, 1.2.840.1 631222772 [id number] Methodi 14:15:00 14:30:00 Consult Candelaria 09442.1.[address] Love 3.430.2.7 Hospit a .3.988413 l .8 2021-10-01 2021-10-01 [facility] [id number] [place] 00:00:00 00:00:00 CANDELARIA [address] 2021-10-01 2021-10-01 Orders Rose, 1.2.840.1 [id number] 481325 9554 Methodi 00:00:00 00:00:00 Only Irene 77386.1.[address] 3.430.2.7 Hospit a .3.813743 l .8 2021-10-01 2021-10-01 Orders Rose, 1.2.840.1 649176440 511039 4609 Methodi 00:00:00 00:00:00 Only Irene 06387.1.[address] 3.430.2.7 Hospit a .3.582131 l .8 2021-09-25 2021-09-25 Telephonic ESTEFANIA Wilson 1.2.840.114 1 [id number] [place] 11:04:05 12:53:20 Encounter Lissy TOW 350.1.13.58 Health 9.2.7.2.686 [id number] 3 2021-09-04 2021-09-04 Office ESTEFANIA Wilson 1.2.525.104 4909 61383 [place] 14:04:50 14:42:37 Visit Lissy [facility]13.58 [facility] 9.2.7.2.686 [id number] 3 2021-09-01 2021-09-01 Telephone Renu, 1.2.840.1 [id number] 21 [id number] Methodi 00:00:00 00:00:[address] Love 3.430.2.7 Hospit a .3.994585 l .8 2021-09-01 2021-09-01 Telephone Renu, 1.2.840.1 263912681 10791342 Methodi 00:00:00 00:00:[address] Love 3.430.2.7 Hospit a .3.541532 l .8 2021-08-19 2021-08-29 [facility] 1.2.840.1 556731 035 [id number] Methodi 01:47:00 13:27:00 Encounter Mari Medinakerri Hyde 73273.1.[address] Jhoan Torres 3.430.2.7 Hospita .3.700817 l .8 2021-08-19 2021-08-29 [facility] 1.2.840.1 931398 035 [id number] Methodi 01:47:00 13:27:00 Encounter Rm Medina Le 21985.1.[address] Jhoan Torres 3.430.2.7 Hospita .3.545533 l .8 2021-08-21 2021-08-21 Anesthesia Russell 1.2.840.1 [id number] 302 4506558 Methodi 16:16:00 20:28:00 Event Peter 54348.1.[address] 3.430.2.7 Hospit a .3.030827 l .8 2021-08-21 2021-08-21 Anesthesia Russell 1.2.840.1 [id number] 628 2335922 Methodi 16:16:00 20:28:00 Event Peter 22335.1.[address] 3.430.2.7 Hospit a .3.075671 l .8 2021-08-21 2021-08-21 Surgery [place], 1.2.840.1 730236202 503543 6596 Methodi 13:20:00 16:05:[address] 3.430.2.7 Hospit a .3.987257 l .8 2021-08-21 2021-08-21 Surgery Steve, 1.2.840.1 088313104 236873 4313 Methodi 13:20:00 16:05:[address] 3.430.2.7 Hospit a .3.742392 l .8 2021-08-19 2021-08-19 Telephone Renu, 1.2.840.1 139318195 90010182 Methodi 00:00:00 00:00:[address] Love 3.430.2.7 Hospit a .3.154660 l .8 2021-08-19 2021-08-19 Telephone Renu, 1.2.840.1 782977446 [id number] Methodi 00:00:00 00:00:[address] Love 3.430.2.7 Hospit a .3.314001 l .8 2021-08-18 2021-08-18 Travel 1.2.840.1 1.2.073.467 3344 757778 Methodi 00:00:00 00:00:[address] 3.430.2.7 0.2.7.3.698 Ho spita .3.122155 084.8 l .8 2021-08-18 2021-08-18 Travel 1.2.840.1 1.2.770.035 4305 065626 Methodi 00:00:00 00:00:[address] 3.430.2.7 0.2.7.3.698 Ho spita .3.463377 084.8 l .8 2021 2021 Office Renu, 1.2.840.1 102396009 2099 546539 Methodi 09:15:00 11:41:18 Visit Candelaria 55542.1.[address] Love 3.430.2.7 Hospit a .3.358469 l .8 2021 2021 Office Renu, 1.2.840.1 759882841 2099384 Methodi 09:15:00 11:41:18 Visit Candelaria 08333.1.[address] Love 3.430.2.7 Hospit a .3.183124 l .8 2021 2021 Travel 1.2.840.1 1.2.484.211 0180 831264 Methodi 00:00:00 00:00:[address] 3.430.2.7 0.2.7.3.698 Ho spita .3.458246 084.8 l .8 2021 2021 Travel 1.2.840.1 1.2.466.479 3599 305145 Methodi 00:00:00 00:00:[address] 3.430.2.7 0.2.7.3.698 Ho spita .3.879923 084.8 l .8 2021-08-11 2021-08-11 Telephone Renu, 1.2.840.1 [id number] 21 [id number] Methodi 00:00:00 00:00:[address] Love 3.430.2.7 Hospit a .3.346929 l .8 2021-08-11 2021-08-11 Telephone Renu, 1.2.840.1 812457578 21 [id number] Methodi 00:00:00 00:00:[address] Love 3.430.2.7 Hospit a .3.228685 l .8 2021-08-04 2021-08-04 Telephone Renu, 1.2.840.1 542501165 53901990 Methodi 00:00:00 00:00:[address] Love 3.430.2.7 Hospit a .3.112020 l .8 2021-08-04 2021-08-04 Telephone Renu, 1.2.840.1 602094175 18041314 Methodi 00:00:00 00:00:[address] Love 3.430.2.7 Hospit a .3.367689 l .8 2021-07-09 2021-07-09 Orders An, 1.2.840.1 [id number] 125616 0725 Methodi 00:00:00 00:00:00 Only Kaylah 90102.1.[address] 3.430.2.7 Hospit a .3.352663 l .8 2021-07-01 2021-07-01 Outpatient RENU [facility] [id number] 58970 [place] 00:00:00 00:00:00 CANDELARIA 873 Method i 2021-03-11 2021-03-11 Outpatient [facility] [id number] 318 [place] 00:00:00 00:00:00 CHU 763 Method i 2021-02-26 2021-02-26 Outpatient [facility] [id number] 456 [place] 00:00:00 00:00:00 CHU 635 Method i 2021-02-24 2021-02-24 [facility] [id number] 550 [place] 00:00:00 00:00:00 CHU 779 Method i 2021-01-08 2021-01-08 Outpatient [facility] [id number] 267 [place] 00:00:00 00:00:00 CHU 704 Method i 2020-11-28 2020-11-28 [facility] [id number] 723 [place] 00:00:00 00:00:00 CHU 101 Method i 2020-11-20 2020-11-20 Outpatient PETAK, [facility] [id number] 937 [place] 00:00:00 00:00:00 JACQUI [address] 2020-11-11 2020-11-11 Outpatient TRINA, [facility] 838 [id number] 814 [place] 00:00:00 00:00:00 CHU 428 Method i 2020-10-30 2020-10-30 Outpatient TRINA, [facility] [id number] 863 [place] 00:00:00 00:00:00 CHU [address] 2020-10-30 2020-10-30 Outpatient STEPHEN, [facility] [id number] 866 [place] 00:00:00 00:00:00 KATEY 260 Method i 2020-10-30 2020-10-30 Outpatient STEPHEN, [facility] [id number] 866 [place] 00:00:00 00:00:00 KATEY 261 Method i 2020-10-23 2020-10-23 Telephone Pcp, [facility] 1.2.999.586 0877 2221 00:00:00 00:00:00 Patient Health 350.1.13.10 Does Not [place] 4.2.7.2.686 Have A Professio [phone] nal 044 [address] One 2020-10-05 2020-10-05 Laboratory Lab, [facility] 1.2.840.114 79 892733 15:32:07 15:52:07 Only Fam Pob I Health 350.1.13.10 [place] 4.2.7.2.686 Professio [phone] nal 044 Office Building One 2020-10-05 2020-10-05 Letter Doctor TALIB 1.2.840.114 [id number] 31 00:00:00 00:00:00 (Out) Unassigned, LÓPEZ [id number] Luke [facility] [id number] 2020-10-03 2020-10-03 Outpatient STEPHEN, [facility] [id number] [place] 00:00:00 00:00:00 KATEY 640 [facility] 2020-09-26 2020-09-26 Outpatient [facility] [id number] [place] 00:00:00 00:00:[address] 2020-09-23 2020-09-23 Outpatient DUNLAP, [facility] [id number] [place] 00:00:00 00:00:00 BROWN [address] 2020-09-23 2020-09-23 Outpatient DUNLAP, [facility] [id number] [place] 00:00:00 00:00:00 BROWN [address] 2020-09-23 2020-09-23 Outpatient DUNLAP, [facility] [id number] [place] 00:00:00 00:00:00 BROWN [address] 2020-09-23 2020-09-23 Outpatient DUNLAP, [facility] [id number] [place] 00:00:00 00:00:00 BROWN [address] 2020-09-23 2020-09-23 Outpatient DUNLAP, [facility] [id number] [place] 00:00:00 00:00:00 BROWN [address] 2020-09-23 2020-09-23 Outpatient DUNLAP, [facility] [id number] [place] 00:00:00 00:00:00 BROWN [address] 2020-07-23 2020-07-23 Outpatient THEKDI, [facility] [id number] [place] 00:00:00 00:00:00 CHU 397 [facility] 2020-07-01 2020-07-01 Outpatient ERGUN, [facility] [id number] [place] 00:00:00 00:00:00 GULCHIN 383 [facility] 2020-05-01 2020-05-01 Outpatient GOLDSMITH, [facility] [id number] [place] 00:00:00 00:00:00 NEHEMIAS 750 [facility] 2020-05-01 2020-05-01 Outpatient LORI, [facility] [id number] [place] 00:00:00 00:00:00 NEHEMIAS 746 [facility] i 2020-03-19 2020-03-19 Outpatient ERGUN, [facility] [id number] [place] 00:00:00 00:00:00 GULCHIN 523 [facility] i 2020-02-14 2020-02-14 Outpatient ERGUN, [facility] [id number] [place] 00:00:00 00:00:00 GULCHIN 193 Method i 2020-01-31 2020-01-31 Outpatient ERGUN, [facility] [id number] [place] 00:00:00 00:00:00 GULCHIN 187 [facility] i 2020-01-02 2020-01-02 Outpatient ERGUN, [facility] [id number] [place] 00:00:00 00:00:00 GULCHIN 723 Method i 2020-01-02 2020-01-02 Outpatient ERGUN, [facility] [id number] [place] 00:00:00 00:00:00 GULCHIN 357 [facility] i 2020-01-02 2020-01-02 Outpatient ERGUN, [facility] [id number] [place] 00:00:00 00:00:00 GULCHIN 186 [facility] i 2020-01-02 2020-01-02 Outpatient ERGUN, [facility] [id number] [place] 00:00:00 00:00:00 GULCHIN 131 Method i 2020-01-01 2020-01-01 Outpatient ERGUN, [facility] [id number] [place] 00:00:00 00:00:00 GULCHIN 825 Method i 2020-01-01 2020-01-01 Outpatient ERGUN, [facility] [id number] [place] 00:00:00 00:00:00 GULCHIN 826 Method i 2019-11-01 2019-11-01 Appointmen ESTEFANIA KOO Thoracic [id number] [place] 13:30:00 13:30:00 t; CAREY KOO Surgery - Physici FARZANEH, M.D. [facility] shai Hinojosa 2019-10-18 2019-10-18 Appointmen ESTEFANIA KOO Thoracic [id number] [place] 11:00:00 11:00:00 t; CAREY KOO Surgery - Physici FARZANEH, M.D. [facility] shai Hinojosa 2019-10-18 2019-10-18 Outpatient MHSE MHSE [id number] MH 09:08:00 09:08:00 [facility] Results Test Description Test Time Test Comments Results Result Comments Source Pathology Outside Interpretation 2022-03-26 23:58:33 Test Item Value Reference Range Interpretation Comme nts Materials q9nzbONeQYTqkHNiHhZsOSWeJBXzt3bgIEHokFZrYoYpRpUgIaIoRdzkrLWgQOKkRaKqc6zjk949sRXy l9kpXZDkVxL8fWIgAGKfjGLeX995UEBwFSwaj8fkp4OwZIAgnFPdy5J6CLIPyrzukUn5uMnoM65qt5B2 CietV9liKNHrSSIxO3UwHY7uPCChYxq8SUG5QQT4UAX Received kZYHkD5MdFJ1dXQGkdTRjGKq1m4bxpUpaKXDjFFR4f6pzSMwxurNfFN4nzg0djCq6u0hduiUaJQRlKKZ qsQSQIBYlQ7ChrMozXh4vtCx3bHueHsmlJAO0Mxs6TG8rpf44thm2qDrrIJAvpqupObO5MBxqITMxugv oDEg9EFnmFFZuyOtqJNoqLYZicqnhPWkjWWPftYB8AN (test code QpwOGwV9QxOOZzYEnpIMUlsnm8GdDmIz0xtNSijQtcDCfyw3lky9nmjNCiBkt9GQFsSsXfUcirMHojf2 Xzl9oaUBXubh1tANR9oHKpnIdfj2M5kUMjXRYvbSPynoLrAVVqrh57lVYacAMnvIAghe8ugjKohUAlbO CoOIT6dATfraTlMJYtkTLpNEKuVN8zkKOxHDSvrI3ja = 9973) pzpRFKwYnXjddjpMLClcHluzoRcVg2kwGfgFEP1UAzqX3ctkC1gQmP2UJhsR3qplR5wUZq8UOfegXU1O LTakN3aLW8vjcspb1kuHgGzNZ6rehgsp6gcRcIwBI6axoc3r9qqUTU2VHviNJGeMzS9rpG2PEVjwEQfO JVhiZwmRKtts017RRQ2MoTpQNEds9UoH6JprIuxN32w sMzdZ10xDVDlxVipjU7zpCysvZ6tZtWxWtMkERu3wt47KBr9pfobpQvxPCb5xfDmYBNfPHU3PBAuhSKv ZDYlM1b2vgViNJUnZEK7VTFelNGmHZXpC7q4nlFfKLW7EWk6zuHsJJQnkMNhnTFoMXMqEhHxzVEfVZCj SqLfMJRskHMtrIFdgGQkcK1jyEbwLAFgzQSgjZ5uZBN 9GWCpjdpwBxMzyZJcRPNmsUTesb18WNReshDgdABvxAgxcMHvQFB9YPOaAWBkCEJpPSC3YKIxLkMuvmQ hYCquaYHpQTOtTVLgLHUuAHNwSSO9JSPyHoEqozHyAViktDPeDAXkDVYlZNZwHERvPSB2NDEqJlBtvxR uPXhjgFJfHINeIMOmFHNpJSHrBMV5JUAbKiLnyyCcOJ zjlSXhCYVzLUevwHZbVXA2S0pewJOtHWUqGKfchRXkYRRwD2itxGBtGAdfNUFrwPMcQrdxEHMwlEHmGo IrN5caGDVrTfSkI0TrhDa7IKEfTERlosAidQDbdMeivWQvSMV2BNLgWOJwVSJsEEL3LSMiRwJcbsExGZ bsjVOiGSJoWIGfMHVfTHBoPPV6AEPmMmYxmoWqZMlss HWhATDlBGTzKUOvPTCoUOC6SCWxWkIekgRlACfmwZYkFRKmKNPsNEEeQPDcQTX3AXFlYtXgghRpTGnaa VGcKVYrOHdhyKHhQTM1X5qcmCUhJXVePYansOFuGVKtJ3ctkFVcWYboZDNjeXKnDutjEQJagMHjIsTaJ 8ukXRHkOzDyE9VqvNx5UtFjJTEgfmVqiPPltMrdqUTm BEI5PPGtANAsAEFaRLJ5IVNlJzErneOdBLhloDTlCTPjZTCdZRPjQYBjYFT7LCHvMiEazzWySTuqiKCy BHDtOOIdPULeZAVpZBO7HTXtEmPnyzQeZSkshIDlPGFpDAPwUHYjHRDuEPA8KTAaZzZwpoWjNRennXCq GILoUUdpzACoFRM0Q6vnqMBkRVHeBTpjzAFhAFSfN5l rgAWeYYpdWXQtlPOlSnyyVKBzmXAvWiXfH7haWBJpSpDfE9XapNs7EkZsUMWpolWdmT86Xqflv1IrJSX fGIW0RRxsZOajhWusjNEfrstkIKigqxTeTLnspnwbBRXpWJreF9oiSaNzFPBitEveHTnhr7DmSVTyKFQ fDqvsijWmVSWkNLBvSFCzoK2uWxptD4CauP9sUNtpNz spP1xiYMMjz4HupU9yRDxgoGLcvxmtELgejmYcBUhkieowJIImTZvpR9saMfCpTCSufFrgCUnon6InTX LyYFDmOmanefOxULq5flUwIZJzdVpznLLoIRybxgHdhBfoa8QwygJviQoeDRRzWFe7eoDoafdamFy2xP RsxHwlCQXcdMwzgW5iTbQhIkBwQYwuaRHsxsitEBfra fSgLMdjdiefCTIxYXmkO5fwShQaLPRilRrqNOmcu4BuCFOiOPLvTbpehhAeCYCuK73sqXViiVSoXIGkY NbsWHKlYQTaFrLygZCiLxNiCuTaxXaafLbsTVclFnEfRFFbDDxaN3zbRkZuO0VzRHGcFjTthJXtP3usW 9CktYmfJUHyRCdjaIOyKRMqgXZqBYZ2mMVwfoRcuWNv gMGsRSRcYAfsLUR1qOTsbmaxyIDjlrodEXntziA0ZZDbBRotFLQaPNLrGzEppXDgGxBbNiYwlNpziLhj VMibCqZsOPClVHitB9mhGuXbD3SgUQIwWzNcOoDBPKUrcCHzXFiqgDAcdeajYAsfoyFvTKovvksaRHYw VMckO7bcFiZqPYOjyZnvOHlei0IoMAZoWZWzQgelxpW gQGh5wdWjVTVqeTelxJ74Iveapx65OHYqu6tpUQAmH1TqeSDnYVRxeNSfTYgfOUngaLBzUCXyExnsVLK osKQaMQAqYNbzhRMgLHStBwSbJWNchMEzRZTzKNLbsVWxJFK5J0v6swJwZBWjTDe9chPmFDRdNrRfgWG vBBP9GFz2MrejuhT4tAFjX2w7OsfwnnHpXMfycKOaib 42ECLpexAiwYPfkVoayLBgTZE9LYFhOSPiFNYuRTX1NSDkDtNjqfQkGErcaMVvYHBfDSHbIERtFWWeYD J1UKLwIrJdtaRhIEmzkULmZEYcSYLfZVNgQLFtVVN8OBLjRrFddzQeKKbkzDQmQUIxKIMsCGNdJPPwCY X7AAScReXedrFhYAfvwGYlYOHrZZenqJBjZQB9U3jwo DHxJBIrAUpthIUqPBQgY3ritKIuOLkiYIBdqFKtQihgZLTpaKNkNqQaP5xdOTYcQkStV7GjzSd4MYCaO IJjnuMfqMNhtPzvoUZiEVN4SOIfCYWcQAHsAXU3ZIVpYdAyytGxFWztiJGqWUCjWXWuYILjAGDyNKE9C KEzEpWrfsFeGZdeyVYhUJUvCPKjPAXkMKZtTHK9FQPn DtNakrOuASesfGUkXHHlLVEiEDXqHZWnKJA7WRLsBsOnsfVdQHflrPKtUKSuZFwjyWWbNZA9G3ibaTBg NTVqXKsznGCpLEJyJ1crlKOtCKeqCNAomBDxGtnnPHKiwREvJcMrG0ajRLMgGfNvQ5XkaJt8FhIrHZRj cgKoeHKawBuzaWZdPIE7IHXhSBUtOEUiXGY6IBPaBdB coxVoWHivrXZbCWIkSKCnTOBaYAQqOKA8SYPqCbSjhlZzAGhfdJUjEBKhSHLbDWHhCYQuLGJ5LXBlUjI lqfDcEVqraUIiLJSkFYQvRAKmGAWvKEM8PNXzPqEaapAqGPlaqTYnVDHoKCbhvMNgWMC2J4wwbUAmIER zKQjdsOOeIJZyQ0anfACuVBwhDXCizXMgUemrPLKspI YfBpAfU7hqHYPhPtLcL7PfzTm1XwBdJUEdnvGhfP48Jzytj2SoELXcKYA7FPvbNMolzRaxuFZozkjyPI xnheP6RFEwNNluXKJqNXDyGsPpyILhCvMgDhClzCtkqQagQRzsOdKnMJRzYOqpE1vwGgDtX2JtKZIbIo TaVO6hL1XcSeNdXwz1GCxmPIM0QOWQRDCdHZXAX2PAW ktlJQHHV4LlsRajhG2pXiYrJhUoTSomQA1iPXSkK9hgeDQmICBdVWJuY8spLaYsyJ5ubTtbPZdvNvLpW aAiKNsbaQQyvGtkJDolPFWmyfAibT51Sndix2XfJLJdRSV0TCdzWFlyzKqlqSYkcgisJLdazhC5STCzH WluXGYxXGZzMjBcbGFuZzEwMzNcaGljaFxmMVxkYmNo UWYdXFdwP0olRySoQ2XuKTVqAuWlCLLrGv5oCZJlLYLeGXanEDIgAELpBdWbkOSsLyXjWsMgyJfeeQtu YNvpNhUoUFMvAHyjH2zmWvQxM0XaHWOhKvWmlXHkO3abG0NxjRsyDWKuEPvcfRFxVVLsxZFcJZY7yLXm hwRzaOslbExjsD0qEhSmQrOqGKuvvUBdmicuLItfqxI dZOlvkpfsRGZsOMffC2xfWzBfQFJtsVkyKZvly7BeGTGtODWcLsqnnnHePXNrGFRbKkAePjxobVWazrc rBJedtoWbDBauvadmLZQcQBirX6ntHbLuHXCxgGgwJQuuj8JbJJUzEIUzHkrofqCkZMf7kpLkJEUrbYv tfF22Bdiswk65MXWvtbZih5TfDEBvFLF3NIycBBqqyP sprFMxbjmaPQawtbO7JZAmOBkrXKDkJJAmPnOohESfNaAuZsBstIzjfJzxARmvBxBcATDsYMaeP2rbXi FcZnMyMFxwYXJ9 Addendum 1 b8pjvFWyLHOmsVY1AzXaFUOht8dcu2LfwMCvmEFrDAdzlYYosfOywo08qDF7lT28CN9wAQObTjP1MMFf clM5Oth7ADLrRAZflAKyU341x3pku5mqfgDzvXK9DKThWWPgD0UqTU1vFLHdiPXyJ22xpZUkBQY7XHRh UVMpfJJdNHEbEQU9TXGhhNPzX1nbVVUjWR4byqdlUYx (test code lLUkcELLxtVD0FILxtEWqQ6MdJIWhMZhwJGFzunh7BrRmJj5ikUJrpJjjCItrXRLkOLTvXZijLKUiNhG vG2HzCC02bSZkINJzUCQGYQHjJGN6WCe4FACyPYCWSwenPQWNPO5FI4ZzLFGlRZWDONGyx3rpBTV8WPJ jo49iWHJwOc4jEALpBXvtnQVmXUUpUDsxVBJenCo5Rv = 37) GpzNotNxVqGLLxUKCWrOOmghwbkx2skEttngdlo4MnR2PbUdtewWK5HGygXiiqZYNjdWsnJLUyIGGrMU zxSIcvfR0mCOZyMPZsmEJfSMLpzZMuNEFtf40rgzboKX4mJKZetmIsEE6lXYOcRZRtpmDEniPpDMnkW3 9wlcV1DPirZL71qKWeEKBtKJKvmffuCWJqtNUgFBgzS XJ9 Diagnosis q7wugOLgPOZmjLQ9JwHpCILfs8ceu4SfoLGphJBxPNyevBOaqhUwot67uZB7aJ23JC6rRWAvCbS3AGUi vgW2Rtn2GWZtURXmsDJeF884f8jnh2nwbvLjpPI0LHIqQNEkZ5UhOB6yGJDgmDHuX03hpWLqEZK0ORDd XZOvuSOdMUZnMDM5VCAamXCcB7biDDUlVV9hycnrYXc (test code vTTlyGMBnzCA6ZPWwgOCsV6CwTHVaFNghTIJgzeb7DaTuMp1nvPDjqYtoPQzyYFGzEQRkMGuaYMQzNfP sE9MzTN86mAUdGUAxUKJCFHQmOOY4HXc2AGMmLFQDMtkbUZJRPB9PE5WxSDTfCIJXIMXoh7czEBA2AWO uh11aJCKzJv1yBNOuRVpftBTxPAFvQUboJGNdvOg4Ou = 32) AybJcdOjCxVNOwUDcjhwGbyR4yh7j9wYIhKGKxpcSxfaleWC8ow7XaHGYqC43gojIbmVFmNOOdF6Rjk5 57KBYxipilnSJcIvIwSpdaMwCjZRkuxhAkJtRnDbMblZplGZK4bg1dJKrqNnvjmd4ydWOoxQqteVywfO iotNdkrfMwuoMameHnW5DxQPYyhTXxjFfbQWEeuZcqq jApxkAivNYrgzqnmSLqKS50HDFiIpJmUPPqAG5pCOFfu9VvTVRmta9gOG9fJZGmGMJbk20vUF31NKZmV FnzJEXxZXImo0Cpd8z9MAYlYrHlA53rPYBfwuGvgJUccOFwSKYjfW8bfDnvvRZkZT9pHLQdaS5idHPyk 3HrKPDnyzL3nI8ktsXvrwXsMY53BNpkWwXcVfpmVGWx WqTeZSW1vB5qNX1hkunabjOjBWMnZVElo5MtlKYcs2ByYQArhbKSbzEcyWJmj6JrlAXfr90mfDklRd29 WDxnfWEip9GqSxpyVOJxdONsAHtgRdRzWASzKRvgxY94YsAnMj4dALRbVH98HZW4SBGotF5wj8j0QGYx zfn1OADdXSigeJpkxJepPMAwhOPtkWRuGXUpq7tbSlL pZWKah49eWBauQFJfB00xgELvmDLnDhphaZXvVZFhudQUGmVEuXEdufibcz0wmPczjyijk7EwI9SvLtj cmRN0BWmtOucwKLWnnYQaQTIgLUEhNIIyR65gSOHxzGBgWaemF4eppTJ4vT3mh4t6ITeftPErr8Hmq1Y nOPKvIEDmBRSrQWEtvJ1ccEbcZCNctorcSJXruYFhSK BhcmRccGFyfQ== Comment c9yfcTIbGQNtxYG5RoVeFSClf1tjq7HmsFXatFRjYRuesXZfsiAdiw20wWU2zW25WO8vFJPxGyE4FUFg rsJ8Rpe7DDToXOKdeLTeI189o8igy5mihyTkfIG3cEhgALVrrnhkMpX5DIqzOEOxlpcxTWl4DBurFFAn gPD8BGIuiWHoM7HgSTCtCO7xxeq6VZS3VEtuGWXwYoJ (test code 9ZKPclXZmGUDcdYjpKDsor541RGJ1ThEfPGRmlkFriBxvkZ0sFjIaCGAaCJqWxNJzaTD1KICyrQ2ojB3 dpSvdxQ8emPApkPHkdLAeqDKaryKrs7rjwdM9mWB5GSQsAWQaxQOvrEOjCRGutQCjkeIyaLAhelHkTXg szDy8XCLgv9CoAtF4AD8uNFQkiugxOEumwDItTSGnYA = 9835) Y4mLTai4Cjr65hUGJOYwjwHPSQVIY1FCRyHJUkeD7rQLUvu929mHZnbQOtcYDeCDH2zT1bCFNLOhKnQD RLQTOuCPFvWHY1b5CjYrjJUTOkMLAwqoRwJ7LiAnDaOBJSILJ5XLnwU7bihVeqzXUxuqCeG0BpNBYqL8 raad6adQZhUHQobUOpJIVktyHMyLZqr9HrkzIrdVEvy P3gaT7fopMjhgTbvQrqu2Eyc7AwSZZkNL4cC34sjDDzI0DtmrelDjH1HEa4FQsvINQfNTugNS5wtX7lC NWwOHFpHJNolIP6BxVNjHFvYCeaYyZaIS56cWDzSEWiYVauu6LddgKnedYcoAXyhyZcXXPuLRG9hTPkI V5iRDVggzsbggFeoWDoo8AhIMC1uOZpoSGqS5IdjwIl xkPmNGUjIJ9sR82hhlUhI9YdRMHvhDJirB8wRYD3R1dyKIXjIQ2wKIX9TANuv1Fjwo33tqNmEFqkr3Cp TXXms48gJwItSU5fbbggh16qQEfbrDzqpoEnD8BxwsIyX7kmmwvqjw9eRIIqixxyLUKzWpM5YNM4Aa1x oNSqSWEoxQ50jo2qrSB0g2QiGK6xG3EjULM1CJqmPQC sqeKKk16oxbYuNXKbmWJqegBfTBItaiBuIl8lDBYgeMuimZXnBQQcg5CxfVugqq8hxJZqNRGvzeqeEQC 9 Disclaimer q6anwCKbCSPplONyWmTvZIGgJZVav3ftLPTlpRSpWgGfOeQuRnKpIqhbwKYhUFShTeBau5bnu734cBSq y8bsELFaJpZ4sAZwKDCkqICjR675RHLsUFnjn4jml6JuXHFzsLXzq4P3ULCKvhdhyMy9fTahU72ij8P4 KwumR7vtCAPkSHBaA1LjHN2tBKYkJhv4GEY4DGV9NPE (test code lSKFzA1UbLA3qJBUyiVNpDKw5z8fxsByqTIWxMYU5r7ldVUfuqrNuVA1uds6fsOc0e0jwwmVsZWJjZHE ywUQUMUOcN0OynIxlYd1kzRu8tUltTbquEWK7Yto8KU0cqo70obn6vJwiKGQbmwutSeA7ROcvTZXnboy vZKz6PKngEZEpzDP2FTRqbNDqO4HsAPYrUP8klaw1JS = 9844) K2JYqhPXTvQoX8JUPqeIBrIFWsgLkcNBmfl391MHI0LvCqGW4eV9Dcd5G5mT8tpNXsPTMeuOOyUjMsYI Bebs9xePOzCRxvk4KuPUX7znG1eBFiaJBvXMDoKI92Phmlx5CnCknmCOF5GGHbvwFzr4Ddc5vpJeMpwy TvZ2eaS9DxWKOxZVHuFXQbTrJsiwNso3Jpq9CpiOOna Dv7v6nuCMHcHKFedSfzq7xeQQA0HIQpP3O9bJExa7hqXHyxBXEziNP8ltG8ATProBYhG0OssJ0vNLAvP V6qqhi8p6wwOVU2TMcaPVXcZvX2clR3VMEkvRTfLIXxiKfiAYxmv308WFI8AoQaZPWwx2LiO9OveJowU 93orKwnG31mBJFdmYnivG9snGcqmJ8fBpMdAlZxAAxr mBaydFNhzswpPGqhmnL4FAfqiqdzBMEiWOkyS4spOuRpGOPlyAqfADqob9WwHNBnXULzFkfuctV3ICLO f59pVIGyv4FlMTXdbZ8zuKGyCJjugcKcxIM2MOwfhaMbRmRhyuCgZEDmiG6pIILzJG0zUESdfkZfas9d gvCgWPWfQNWvZ0WaylulfMcncoRfMYBfah2wpmGvAGU 4WULKPH9VKBInTXIqy75iAHKghOebnD5gqXOhcmNxKWCet5DszF5fqEFUEBChL5rcJT8eAQqib3AtsMO khZCqgEV7SCNqw3OtOeQzejXrgHLekLCtR3WhtRqyP1bxGQGcQEIuosDksDDbp3DaFPSdnAF5iDOyQJ2 KDrZLs08cARZlYYQZdmAnXHXbsAtctPL5ttO4bY0aAm ADYmIcaIJgsKOwKpbmIZMsd613ca8lksD4QYTyLLLktgtqx7NoYHRoPUTbsN26WFGeNMIlmg7itddbgV AczrUtL1Jlmhh4cK9aIWMtYIoiHSIbKFOhOiOddATgWnVhYtCpaNnitFqmSPaaSkRpASUaAXgwT3xnMg FcZnMyMlxwYXJ9 [facility] Interpretation 2022-03-26 23:58:33 Test Item Value Reference Range Interpretation Comments Materials Received (test w5jggVWlVBHtkBNbRmUi code = 9973) ZRGcBTHen5klUUIglVGb ZzEwMzNcZnRuYmpcdWMx ZTMmXvOsi3ohj799hGFd f7ecCZGaZqG7jWRsJFSy jOXiX220AQWoDQhpz2zu f8VeGXYdmYCcc7I6EAEN pmxndNh8hFbeV33ki9K6 PecsP6tuZZUyYVIqZ0Ql AW5dWOLeTej5AQU1SZF1 NMFeANQvS7WxFX6eJHRf dJTwRRd0g0yfuHduWKQb JTH4c2lbYVtqayIhLZ7i jg2riCd8e9mcxjEqOQYl GCRswDBKAXRmF5HqtZcl Pi9ymJd4lNddMmpjQOT3 Kos3YD4gbd78xco1kLrt OBCojuzmXyK1KReiDSOa voztMJd6DDvqBGQmdPtt MFxtYXJncjcyMFxtYXJn tRZ3ZDEhwCKfR4VyQJQc NPlxHWYggve5OoIkFb0y pLEzvLhcWGssx6yir1sp dUKvUns2UZDfNyWlYfxa XQcgu1Cps6xgSUHssj6i EFT2dEOibNiwy7M7lVHz NEGvoDVidmKuAHUcbp41 xBMvkZMfrISycw5jepVh qIDenFGgIBQ4nQCzqbOi RVNnsDKlLGYoLY2spGAh XXOxcC0rnxoqJALeTqYt zdivDALxmXmvhpVrPu1m oWlwDEB4ZBerK3zahH1s TzE6ETlgL0hqkU8fAGb1 GNmgkZA2LETghG5bHE7f ayxyi7bnAeVpDA9mdpfj e0sjGtIhGM9ljmf7c8rn ITQ8IYeqOWKdMzN5ggN7 NDBcaGVhZGVyeTcyMFxm e668RWP5ZzGeZXGgv2Ob P1SeeHicD37vbLzzO52w EGLqsPucmF4mxYckfK0t DiPmAbVoOHr8qg78AAk3 weeyuUkzQUt2yiXaCEWu PQK9QMCbkMTqYZSkW3e0 oePlNWHsSDT8SAMkoBKw DPReW7m0qtDhIKI7UTp9 cnBhZGRmdDNcdHJwYWRk YjBcdHJwYWRkZmIzXHRy hDUdiSNrtQXmqH2ddEvg XRFcfZDueL6nWMW5DXMd cmgzMjBcdHJoZHJcbHRy kb78KYWpbcHfsXHhxMaw kVSfJVH8RHMmBYElDRGp QFD8ISTcWzEoklPxDPjk bGJyZHJiXGJyZHJzXGJy WSL0YDXpKcXkbyQyCBto bGJyZHJsXGJyZHJzXGJy TRB8RTKsXwMswwIgBXhn bGJyZHJyXGJyZHJzXGJy ADD2SUUjEnYcnmSnORsu bHBhZHQxMFxjbHBhZGZ0 R1kbeZBhVVMiEKlasIGg XFLxX0jelJToNDkoHEVo cGFkZmwzXGNscGFkYjBc L0ijFOXdIwIqC4GjcSu3 MDAwXGNsdmVydGFsdFxj kCGcDOL5TVSrMRDmROTn PJZ7FMVyKiBkxlWtNGkd bGJyZHJiXGJyZHJzXGJy WCV2BXQwPgAcxlTjEGzf bGJyZHJsXGJyZHJzXGJy EIA6CNHiQrWyjkJhRIbc bGJyZHJyXGJyZHJzXGJy FIB1QSAtHyIwdnUoNFxw bHBhZHQxMFxjbHBhZGZ0 G4jcmKSgORYbHOrnvGXb KQAvP7ozuWZoNToxFBJv cGFkZmwzXGNscGFkYjBc N1jaJSWsMpQpV1KkbXg4 NjAwXGNsdmVydGFsdFxj eSUxEJJ0SMGzJEWsEIPy CIC7JVHgYrOvjqLrECyi bGJyZHJiXGJyZHJzXGJy VYF4IUZfMwNelzNwVIzt bGJyZHJsXGJyZHJzXGJy OQI6MJZbWhOqqbHcCSsi bGJyZHJyXGJyZHJzXGJy TXH8NFAjZgAgurEqWCwe bHBhZHQxMFxjbHBhZGZ0 P6esdCKlRKNrJZseoRDm IKGyT4kenBSfREibASEj cGFkZmwzXGNscGFkYjBc Y6tlNLDuEgUcL0EvyEa8 EdByVSDggjHloE22Yhgs n5JsDPTmOPC1PYikXCkb bFxwbGFpblxmMVxmczIw XGcjvaugOWPvLIjnG7nj IdXmPZEhtXrtVSeco9Ey XGYxXGNmMlxmczIwXGIg AXLhWXJpsS4sQdzeW2Bl cK4bJOzzKvwcI3tkLMAe x3XreM3jQJqkiEXvpljw MVxmczIwXGxhbmcxMDMz BQbeX7ixTpQbBWOdjNvl QEbsa8JmQHRxWSLsUjuc giGbOZo2waVzUQOyeNuw eMDnONdmslHeuVmta9Hr hoMolVjlOBRmAQy5pxGi othyhYm3sUAahZxcVDQe xXxsyA6xGaAsOvBbHLmj bGFpblxmMVxmczIwXGxh vmkmXMZxZJsdV2erSzVk ULLnpPfsWLnex7QbZNTu HGQkQqfobpCfVUNvT99o bGVjdGVkXHBsYWluXGYx XGZzMjBcbGFuZzEwMzNc aGljaFxmMVxkYmNoXGYx GEqhM9pvMoCiF7DkDDIf EkMrpPNxR2czA1NukLgm YXJkXGludGJsXHNzcGFy MGY0qYUhjnGeqCYgjRUc FPQsUBxeQUN6hDMkztpe gVXqdelsXCavdsR2XZTu YWluXGYxXGZzMjBcbGFu ZzEwMzNcaGljaFxmMVxk IjRhBEMePBalR3gvCcRd O2PtIIIzFtDmKiYXCRZu aXZlZFxwbGFpblxmMVxm czIwXGxhbmcxMDMzXGhp S3ueJoDdTEResHzyGPpl n9ShKZBpPWXtGdsskhGj PBy9gxNgGOBpvByohD11 Mmgccb99VBQhg2ebMBKc E2TomQIkYLUrvBEeCPau MDhcdHJwYWRkZmwzXHRy cGFkZHIxMDhcdHJwYWRk ZnIzXHRycGFkZHQwXHRy oWFnIFJ0P3t5blGjAMQp CTe2nzAtKUCpBlTcpCWz NLX3SGf2IddvgoF0mWSr Z6n9PvwmlbYkSTbfiXIf ov19RNMedsSyuENfjZse hVQjQBX7YSFnZOZlJEMu UTV5RISxOiYzhcRwBZwp bGJyZHJiXGJyZHJzXGJy NPB5XHWjJzXmpgUqJFzp bGJyZHJsXGJyZHJzXGJy LJU2KLDvUnHwjpLjVQsy bGJyZHJyXGJyZHJzXGJy PON1RTGnFoOdbxHuVOqo bHBhZHQxMFxjbHBhZGZ0 O7vpcTRcXTIjBJadpXXf ZOSpL9gcrPLzPJfmPSCd cGFkZmwzXGNscGFkYjBc E1roFPPaQvCbQ0RpbYh0 MDAwXGNsdmVydGFsdFxj nODlWJC1DHDrUCCuAPRs IME7SYRqZsMvzfWkYVai bGJyZHJiXGJyZHJzXGJy QRF6BMSnYuWsmwLzEJvq bGJyZHJsXGJyZHJzXGJy LZT2YXQpThQzsaDeOVrm bGJyZHJyXGJyZHJzXGJy SYS5CJHdNfXsbmMkTJke bHBhZHQxMFxjbHBhZGZ0 M0bcyZSnUPSrHYnmgZWx AFIlG4zipJDrUIxyLECh cGFkZmwzXGNscGFkYjBc F6dmAXWmMmZnX4AmgEd4 NjAwXGNsdmVydGFsdFxj tQOyKWN9ZNLfDDHiXDNe RWF8UZVaIsRwafNvBZih bGJyZHJiXGJyZHJzXGJy KZR2XDOxVuShvcZeEIfl bGJyZHJsXGJyZHJzXGJy KPC4DXDaChVdfeRjOZbw bGJyZHJyXGJyZHJzXGJy AGC0GMDpFsBfduXmFZyg bHBhZHQxMFxjbHBhZGZ0 W2bbnAAmOBCsCDwrkFXc FBEwO6lbhHRnUEjzZCFw cGFkZmwzXGNscGFkYjBc O8lvPUYdIfQqB7TtsLh1 MnIyWGQkfvDegV31Ktat m4PzEMWxHYL3RFddFBvv bFxwbGFpblxmMFxmczI0 XHBsYWluXGYxXGZzMjBc bGFuZzEwMzNcaGljaFxm TCcfJfMiQUEdUFjcL2pe WkHgD9BwRHOhKzOmUR4j V3ZqVgQyZzx7CQliVOT1 SUKXOLJtEEFIZ0TSLxmi KUJFN4WisFibqT4pSvRc SsObUZhmNX5yFSTgK4xr uRJwBAVaBFUcT9kbClSs gJ0zfVezTKivScGnMtQr MFxsdHJjaFxjZWxsXHBh tiNwyE96Nadgg4YtRERu UDQ9EJniBBofnJpolIEp hxrnXOdzflM2EWTnSVrw XGYxXGZzMjBcbGFuZzEw MzNcaGljaFxmMVxkYmNo NNFbIBttF8clEmWiI7Gf QQOxSaShHIDvGq1fSPCb XHBsYWluXGYxXGZzMjBc bGFuZzEwMzNcaGljaFxm QAksPzOoSTRkGGqyI1rb OgDcN7GnDCJaZfYxtTIu C6lkJ9QziBjdDHKpTPrq uVXpRZIqfMDnEHG5sFNx knDiqJyohFwcnV1sHzGj ZnMyNFxwbGFpblxmMVxm czIwXGxhbmcxMDMzXGhp T1qcOnOaKPVmpUimJLlc d8PtEHGzLOWsWtucorLj IDUvMTEvMjAyMlxwbGFp blxmMVxmczIwXGxhbmcx GDTjWFkqM7vyQkQwLMCm aUxeWJxdx3VkUIWbNIAr MkakllLvUQh0kuLlBGCq oBqcfE98Qyedjn15DOFa haGoy1WiPDFtPGY7MPcx MFxxbFxwbGFpblxmMFxm koO1FTWtAMayIPHgTZUb MjBcbGFuZzEwMzNcaGlj aFxmMVxkYmNoXGYxXGxv H0upSzCbDkHuMJvzPES7 Addendum 1 (test code = y3vuiUTvEWCzjEH6KiHk 37) KFDzl9uxq0NaiCImvNZw VGjjbFBdrsGogg11gLJ9 pZ35RQ1rMQFnCoW4JEWm gsW2Qtp3ITBvCYNjnVEl G104q3frb3aepzChbXJ7 ABWiEMQdO4KsVF0uHWCb uYUtY89ptQHySQE5DFRu ZSZmtJTxSLQaDDQ0KDVx uEWvE4ghJDQrUH2jnsag IVrwXAesNPZfcRY2GOHe wWLjU6NxPKIyNRqmWBGv tmd2TuIkZr2ozNWiiBsr MFxwYXJkXHBsYWluXGZz MdKcD8PgJJ51jPTxUAKe VKLMLOLiOXM8TEx4CBCm BBDEOmmxNXYHXH8XE0Fn AEFfPTEZCQMub0xnXRV4 FABmh63nWSFgJo1lUFTb KTpccGFyXGNmMFxwYXJc xSf8LlGglDcsQdHeJKQz RLFUkVJwgwymlt2xvFbd xkklw0YuL7KkCcyjqLX9 IHgyOlxwYXJcbGkyMTYw CNCfKXioNQqlbP3oXMMk IEJpbGUgZHVjdCBhZGVu p30nbqwiFD2kRYOzunOw HA4fNLSzWBSyraVCwhFb KZnfP79cluB5GKvqJH13 aWZpZWQuXHBhclxwYXJc cGFyZFxwYXJ9 Diagnosis (test code = p1giqMQqJWWkoIF2XcNn 34) IPFxi2wey1DezRIavFWj PBmfdHXykmUaac96uPN1 xC25EY7bRTDsCrM7XRRl syH5Oal8BQKdNNAtzUEv W556t0pdr2iwicRchBM1 YPRcAYNnK4HeQY0sXEDx qTFeJ28uqKQpFWW5MDXy VIOrfREkEDVuXHL8HPWm yAPbA7duKDHmSW6wrqxp KQsxSYveMJPmsGQ2XAGd iJDwT7CeRFQfVXkzCZGe neg1KbPbOb3ecPMuzZow MFxwYXJkXHBsYWluXGZz WoXzO1EbZO89uIRuQVBp NTCRJHMuEWI6HEb5AFMm XILGFvkkUQHWFD7AY1Oo FIXhDSNTBYLyq0pdJTL9 HCWyi03tCKLhTp3rOZMd KTpccGFyXGNmMFxwYXJc zVs3XrTjeNggJkUkGMMh QMawrvFntI1ek5r0eXRi ZFPufbQlrzzdJG3as6Gd ABBqD44bjgLrgXQeZAVo D3Icg173WILcxszrhVAq NjBcZmktNzIwXGxpbjIx WeXnRrRwwIzxDEK4pf8x XSyzUurjco5vzIItlEde bGluaXphdGlvbiBhbmQg nkAkK2JiDHPtnWDzjKwi ZXJhdGlvbiBpbnZvbHZp cprztLMjHM71SZDgYiRv NOVqTW9oCCJom3KmCTQn mr6dNI8rMIJlAHPtb06x WH26YVOjWUevYWIcNMYh d9Hpj0u6JBVdXlBjF30q KFBlciBvdXRzaWRlIHJl eS3xtCwhhHMhZW5oWKOk pC6evOWds7RbOOAydwT6 oG2nyuVqodOmMA39XUrx LzEpLlxwYXIgUmVzZWN0 pC0ePV9obsiyisTmAPEw ZPYcg9TmaSBlp7BsRCIn qeSXqqQeyMSmn1DlfCLg e05dwZjmAf40BAwvnESf a8KcOkvpMJBteABjWDrh OsDoYKTdTSycbJ46CcAb Gq4oHRCfLH21SSR9JVUs mQ5qn8q1URWqrvn9GWHw SHlhbGluaXplZCBzdHJv cLWcPULhq3xtDjZdGRNr f09jLUezFWNtG52qbISr dCAjMilccGFyXHBhciBD BxGUqGReazedro9thObd lmfbv5SjD9PfGvyygSY3 IHgyOlxwYXJcdGFiIFRv UVSwWGGfW96nNJOujVUj MozgI3fgkIF4nQ4nk9x9 ECqlqBHgp9Mdk4NrNCYs XOZuOOAbKDSizB7hlLaj XHBhclxwYXJccGFyXHBh cmRccGFyfQ== Comment (test code = k8ofkYIqHOYzhHH5PcJw 9835) WWLhp6gvo0PonIIimZMy KWhuaTZbprOety98yGZ6 mD26CJ3gDWMuJdW9ORTj efZ2Gej5YXRvOHNgsNGn Z347c8pxe9lcrmSxsZF5 aSyzVOKuxfcePhC5DMlp KYCkvjeaNJb2CNcpBIJn oGO5SMZeoVIjA0RlRAVo XV6kzss2TUK3HQmsETVm OtQ1ZPGvzWZiNOCxtVze IGntf552OBI5RjRcQPIc pcPqeIsjfK0eNfLvSKOw QEeUcZCyfAY0SSQuuJ1x kH4liNyajF7sfHXrsLPy zMIptFEdmfLkp7yzlpY2 qRT0CKWjYXPxdZFiqTYv IGNvbXBvbmVudCBpcyBu RTiscAv1CYXij4CfOdE3 KL2qEEQnldvmAZyxvEPo ZQLmXQC8bEHwh7Yvd88g ESQZGtnnAEZMFCS9HVTe KHXwlY7pWBKnz089rWSt sCLqsOKnLRK2vP2mYEEC SzEsIFNPWDEwLCBmYWN0 p6JuYkzVZXGuCVOrjuKz D1RqHuCuCFLDDXJ8UIhi G4tyhIvcsVHrboKeF0Fv YPEgW5zzhm3ccWShRUKr nGMaAIIwafXVkQKdy3Lw auVqnPGvxA2yvY4enmGo vvPolGdhn7Lbo1ItQKRv NP8kD03dwKNbV6Alcrhq OvA8YAc9XTjgFROkKUdn EM5hvJ6hNXTeZREfXJSu bME6ScPRsBAnVDcdGbZf TI12qCIaKGWgDZjlm4Dz cyBpbmNsdWRlcyBhIHJl NDK2wJQkSD8mSYBynppc wjGffWIiw4HjXPQ0fRRc cOWgD9HxvnPpqwFmWAUm FM6hL95uzeZtA7UcQDEq hSVrxQ7xEPM2M5agCEGo MZ7cVHK6FIKwj2Tuzx90 iuMiZGrlc5DvLTYnr53q KdUkUI3iidgxv54nOHfq pKybzsBxC9UwfrYaA3iv yyejuv9kJRMkuduvVZJc LxL3VEF3Lq4bvCRrSSXh nJ92hj1lgKH3r9JyTF7h T7ItGKX0YBfkKYTodkXI o48ikcItFZAmkXYqguBu UTWkcjDqNf5bTGXsxKds iPMqADWjk2BdrLbrkg2n cGFyXHBhclxwYXJ9 Disclaimer (test code = k9eawXUpHVLamACcWtKq 9844) QLSlHXYvs9sbETWfrDJl ZzEwMzNcZnRuYmpcdWMx JGPgUeUql6uvs695kMZe v8ztYVZxGxX5pXVzQZGx qHGcI080CBAtIHkxh8vs r6GcPTBzpBHnp0N7OUBO jattjEc9zOdbL50kw1Q6 FgfmC7isAYMkDDIeR6Ft UD9xNLMcGcf8WAX1TFW7 SALjJOZiU8BeOZ9oKIUm zNPoBKr1a4uutAxtELNs DZN5u5acASkthqSxAH1j kw3dyHs6u3tsbxScQIMc LUPmnSBDLLJoA0OyxApe Rs9ahAg4fMtpYczjAOT3 Edu4CQ8gba21cal0uZbx AAVducyeHgU3WYovOTSq tgzvHUe3MHyzUOYkoAX4 FRUarGZcF9QoIJIyEM5h zeb5UBD9AOgoWRGxOlA8 NDBcaGVhZGVyeTcyMFxm p416CLG6ZdFvCO7sA0Hx d0U0jW6uqUFiXSPjyTZb VcCxDSOkdi8ikJMhDSka w3IrAOW7cmQ6wUUqnGDr PRBoFT43Lttvw4UrCatn MCB7CCKiscEmc4Ylp5gr OzIervRmM3zsW0LlCNWa PFTsRCAlYkBqplQsp4Js j2HdhNChlBc1f4zpPIOb YFSgcLiid3saCGJ3OUKs W6L4aRYlr7dnSXskTPTi xHY9pfV8CKPeiDEbK5Sf wW9rQKZvJJ7vude2n7ai GSR4OHfqNXAtGsM4woG6 NDBcaGVhZGVyeTcyMFxm z835DHA1NjKaMZLlf0St K6AnjVfpG99paUyxI70l CABuiJhgtN7aoFjymT4d ZjBcZnMyNFxxbFxwbGFp uszaMNplknN2LKjrruac TZNuINsnA3kaVnQePCSr fZywYTbcg4OjDPLxTVAv AwerbuP8ZCYOp86cYGWp y8VuRMHqfV9xmWXwHNpt ecTgsDZ4ZXpqtuAlDhGi fdOrYUTwaL8xIFWxHZ5a VIXqitAzaw7ukgKvGXCq WARjK1LipmidtRpkjxKh ICCwbb7fjzPvISU0HLXO WS4YRFSmLVAxs49gOBHt hEgoxC5wyFEcfbJpGJKx x9LctI8ofEKTIWVqU1ok UP7fOVekk3VssOMstGNu kVD5IORxa3ZwIgYcsqNy iANhnJWrF5RktBjtB8yv NSUtGMImcgUlmAXfd4Ze OFBzuGT1nZXbUR1NMoLT k27zXPMnOOONmeOuIKBo rPtdhXY6ihV0wP7mGqDO ZiBhcHBsaWNhYmxlLCBj c290yi9bfaM8YPRhHZIl obifc5KgBCTgMZBztV76 COIbJAMxki6egfjrbGYg nsKjL9Kxmgg1dX7mCEBh YWluXGYxXGZzMjJcbGFu ZzEwMzNcaGljaFxmMVxk ZpOvBVJlKLhkH6ehKuIq ZnMyMlxwYXJ9 [facility] Interpretation 2022-03-26 23:58:33 Test Item Value Reference Range Interpretation Comments Materials Received (test l3eymDEcRPTeeLPtCjSu code = 9973) TMJlGELzy5bhBBXjyKQc ZzEwMzNcZnRuYmpcdWMx QIJoYaOck7trj898jHFi f8rxBNUqCfY1eFFhVCFv iPNjQ655YDIpMEmbk8ub i6TnYZQgpJXiw1A6VZLG tccepSb7xLzfY88xl1R9 VjnfJ2tdHVCoLMDwO4Bi EM3cMEEcFyd4ZID6NJP7 LUCjEUKdZ5YpWU3eLERp vANjMVc2j0fjnHqlOBAv TWW9h6crXQlfmoXkVI6n bl1taWd8e6jfbtItABTl HPIgqUCRIYFyR7ZjlRvu Dt2pePl7lYbyIjfzZQC2 Jmk5DL0cem60rmb0dYtd YOLkymbrFjT6TPrsJQLv hbaaJZo5CMrwPTXtrAhe MFxtYXJncjcyMFxtYXJn dLE8LVYgaNAlK6EtAMHp HTunMOBrjxe5QjEeKx4k wSUfsQzrXVlzm1fua0cu tVRrJqi2OPCgVwKlFvsm UMyrj7Jet6oyYCQvwg7b GTQ2lTPnwAlfa0A1uOIx BQJydIYamoJeSWUobc86 aPKhvJFmuZVwkf6nabEz dIKhjERjOBP6zVGgtrTq RGWkuEMzXMPdFP3svQAb IOPktE4upxtpBGZaIaMu qwsgRJUwxGrtmnBkXv4e kVotGRW1QQtsI1senX6m MhO3OPpqW0gjdO9pMLl6 QPudnMT0DIIyqC9lDL5m kyqas3wlSkTpVR5imuhm a9hwHfFpZE3qaip4k9by WWF0PZtiLODjYeS7fmW0 NDBcaGVhZGVyeTcyMFxm w469RTW8KqHkSDQfy3Uu X8JueFjyX68clPhmF38s ZXDqqExviH7ivEuqjR1m LvRiPyStNLn4mv96VAj7 ldixsYsiMEd1sxVsAZUk VTP0VJGtfMUeBEIyB5w9 oePxIGNtJOQ8KUFubIBp JEMmJ3y6jkJxAIN5NYx9 cnBhZGRmdDNcdHJwYWRk YjBcdHJwYWRkZmIzXHRy nDMjhWLsvDCbjW4zcFcc QXFleANmxL7rMGU4FAEx cmgzMjBcdHJoZHJcbHRy gq02GIXmkgPquQBxtRof nRIaTOL2LYCoQCMvAYWi CBT5EXPcZdDjhxZfHXdg bGJyZHJiXGJyZHJzXGJy RFC9VMYqYlWjcsVaKJef bGJyZHJsXGJyZHJzXGJy TSR0LKWfXnKzhqPbPSbh bGJyZHJyXGJyZHJzXGJy XNE2ERRaHyAxkpBqYMrt bHBhZHQxMFxjbHBhZGZ0 U5crrSXmSAIdJMkpfAOv COChB7dnzAFpOFdsMEVz cGFkZmwzXGNscGFkYjBc C5fdXHFoEyAuA1KbiSo6 MDAwXGNsdmVydGFsdFxj mWFePMO2FNEvZIOjFCXi PWL9SYTlGoVnwfLwBOam bGJyZHJiXGJyZHJzXGJy PML9PMBxBzNhdwTbDJhj bGJyZHJsXGJyZHJzXGJy FGC3PBDoYsNhirCqNQqg bGJyZHJyXGJyZHJzXGJy RYK0DVBdZpTngmBdDHpm bHBhZHQxMFxjbHBhZGZ0 D6rqsEFjVHLzKKiotYBg QFGmG4jplSSdXJdzCUPn cGFkZmwzXGNscGFkYjBc V8njGAIoPgVeA7OwpMl7 NjAwXGNsdmVydGFsdFxj vOCuHQR6FIFbTDKtOVKa KZM9PZTpSkDvncMvWDyl bGJyZHJiXGJyZHJzXGJy PGA6UYHgRaRjepYsOCor bGJyZHJsXGJyZHJzXGJy DAA1QPLyTaMbvuPwXXcc bGJyZHJyXGJyZHJzXGJy FPR8WYYqZtUwmeGsSFwc bHBhZHQxMFxjbHBhZGZ0 W8uttREgYCZsGOogoOAw WCJiX4oriMYbMFujTDYh cGFkZmwzXGNscGFkYjBc X4efWZYwYeScR3FauGf7 ZnEeHXIyoaVdqA96Rpab o9PzJFBbTZR5XLvkWWss bFxwbGFpblxmMVxmczIw FElvmoivJCUyBWuqO0wj GeWmDODriSrsPHsbn2Eu XGYxXGNmMlxmczIwXGIg LEPsZGQadR8xLhsnZ1Kd uQ8oYOciWmsaI1xoMVRc f3IkpH6xBFrboSXhnxkz MVxmczIwXGxhbmcxMDMz NVivR0kuPoStJSDacIax BZdoj5YqBFMzCRVdYtak jgDeHGh4mcNsSHQveKik kIBzHEpbmuXocUnxn1Av owZqcDpjVVAdGGy4sqKw qukoaBc9iXTtdUstXPNz wBclyX6xGoQnElGbFIwy bGFpblxmMVxmczIwXGxh gitkAMNpNYznA3lkAjHh VLChxTymOThnn4YbHOXb OGGyNbndgdHtAJEsZ90p bGVjdGVkXHBsYWluXGYx XGZzMjBcbGFuZzEwMzNc aGljaFxmMVxkYmNoXGYx JCmkH8ytDtMpO1EpDIDf RqPriTNxR3nwB9YwfIoc YXJkXGludGJsXHNzcGFy BWR2lXQmtwEpiIIjsKXk JGNrLJhgISJ0rGJajsow sSZdectzPBcjlqV5GIWu YWluXGYxXGZzMjBcbGFu ZzEwMzNcaGljaFxmMVxk ChHwTMWuREzuD1ohCdZf E5FdMQSrMnRjAtTQWAZg aXZlZFxwbGFpblxmMVxm czIwXGxhbmcxMDMzXGhp R7rsOpEvIPRsoEkwEGcr x3EqCSLhIISrQljfvlOh IYs2akEfETSmlHurvO40 Kjmnbb23JMJcj2nxVSBk Z8HhyBUuKADanCVbZThp MDhcdHJwYWRkZmwzXHRy cGFkZHIxMDhcdHJwYWRk ZnIzXHRycGFkZHQwXHRy gHTmHMY3E2w3miLhWVGy DTl3ddWvKDDrPeVwePVo LVY9YRq0AzcbjxV8vUWe O5j5CnimnwEhXMkhnTLb mt79SNBcmfSenQZypJwe ePIqBCL1QNTkNVDxBJDw PZH2TUBgJeTwaiAzHJqf bGJyZHJiXGJyZHJzXGJy OIC6OKEuYaIbajIvETbw bGJyZHJsXGJyZHJzXGJy ATJ1CXJqJrNutfPqTZfl bGJyZHJyXGJyZHJzXGJy OLV0NLJsPkFrqvYgDNtf bHBhZHQxMFxjbHBhZGZ0 I7nvpMEqHHNpIMexnHWg LFVbE0sjeZPpTTkbRTGc cGFkZmwzXGNscGFkYjBc J6wyGJKpKdZmA1BadOd5 MDAwXGNsdmVydGFsdFxj hRClMXQ8SFOrFVOtPECp WXM2DTWlWsOxexPrBDej bGJyZHJiXGJyZHJzXGJy LDQ6ESByNxXddfAlBUzo bGJyZHJsXGJyZHJzXGJy ZTY7QZVeDjUutbTbWXus bGJyZHJyXGJyZHJzXGJy TQG0ROEhSmJdxdQfIHnc bHBhZHQxMFxjbHBhZGZ0 S5bpwQVuEZOtCPqgmJKj OEMhB5wthNLwIEgvLPWm cGFkZmwzXGNscGFkYjBc U9vgJJZnAtXiS5OtsNu6 NjAwXGNsdmVydGFsdFxj xQDoPAS9GASaNJLoSYKc CTG7CLEaYoOehbDdOHlu bGJyZHJiXGJyZHJzXGJy WAI8HYQgSuYkreTrLDcu bGJyZHJsXGJyZHJzXGJy TTL3WBBqUmArgzLeLPdv bGJyZHJyXGJyZHJzXGJy WLW0THJnHiCrcgFnKAgp bHBhZHQxMFxjbHBhZGZ0 O7podTPdRBEzONssfRFp IANfE6mqqPVkNCjzHXXq cGFkZmwzXGNscGFkYjBc E2auKFVcAlMjW9VkfGt8 RvChZXJrlaUyvI66Xgmz l7EvFMNhGMP8IMdiQWri bFxwbGFpblxmMFxmczI0 XHBsYWluXGYxXGZzMjBc bGFuZzEwMzNcaGljaFxm SYrvNaBkJNTeBHwnZ3uq NfKtW3LgWXLtVqOfHE7i W5IcVfKyVmg4NQerACX5 XMEIJNDtIOPTZ7TCPzpv WPYMP0ZlnHsxhS5qRtTd NpFsQWwzDF5xEKFjY5ps xOIqZPBqIVZlZ1ghUxEo uU9wpUzuLUzvTsBvZeFz MFxsdHJjaFxjZWxsXHBh gdPhtV25Wwatv8JoVCNt COK3ZPpeOCdcmEqriYEe esuoMXtmxeG5OLKvJCms XGYxXGZzMjBcbGFuZzEw MzNcaGljaFxmMVxkYmNo ONAcDBhcF4nsGgKoY5Et YTTcJoDzKBBcWe0oZVCn XHBsYWluXGYxXGZzMjBc bGFuZzEwMzNcaGljaFxm NXdiJpQkMKLzOKsuW8gu BhRaI8OiJCLnXvBvvHVz P2saK2PgeJwpKEOrPCku eTBxRHKfrBTiXGF9dHIs zmYykWxrsSobmI4zNqHu ZnMyNFxwbGFpblxmMVxm czIwXGxhbmcxMDMzXGhp X7gsEhSaPSOksLwqGQtd i5AyKFDzYIRhBycdfmWu IDUvMTEvMjAyMlxwbGFp blxmMVxmczIwXGxhbmcx NXRzQZcfA3qcAoYxWPQp bUqmBFeoi8QjSZJqLZPy HdpeidBfFKb3ejGuJUAg vDynvU38Feydfl00CEDz ddKat9RiFHVgIWA2BAlt MFxxbFxwbGFpblxmMFxm mkW1ZKSbPEisZGPfGNQb MjBcbGFuZzEwMzNcaGlj aFxmMVxkYmNoXGYxXGxv J1raUqQsHzEsZLdtXNT7 Addendum 1 (test code = i7okyBSjAYFuhWH5NcGy 37) DUPqm8txo7QpoTCbpPTf KLtemABleiGjwy00pBR6 dU16PP6mSWHdAjJ5SAWo fxS9Lsm3NZJrXABehHTh G134q1gju9kvddVewOR4 AMAjNUWpX9MqDC7tXPNb vFDiA28gbUXhUWG8VQIs WFCbeAYfJJCmAON7VMIi vFLsY0tbMSLqXG2lxinw MTmdRGziQOKghMP2OCSq xTVuT5GpUQIhKXvvMPWe ift1UvTyGe2fcUNgwEnc MFxwYXJkXHBsYWluXGZz FpYxC7CmQO46kHVqJBNk INDSWIHoAVZ1ZVx6DQKh NFXPHuqyPOBWMT0NC4Sr NNBpKSSDQUSgs5nbINL9 WSYyq19pXBUtUg6oLTMn KTpccGFyXGNmMFxwYXJc eJb8QzYjlAahZiMbYILv YISTdYFsiavfzc5zeFav ljvyg4CsR0QxMmwymZX5 IHgyOlxwYXJcbGkyMTYw PUYkJAsbLAhcdB6mYCQg IEJpbGUgZHVjdCBhZGVu b01pfcetTF6oWFLfflZv FF7hFMPwXCDggdKItuRq NWuuD96rmaS1GQjqAB25 aWZpZWQuXHBhclxwYXJc cGFyZFxwYXJ9 Diagnosis (test code = m8wdcQMrUIJjdJT6IkCn 34) EJSei8qzd7YldHUciFTz QVhjeTDvjaAnry58cNZ2 pR37DY3nKGAsRcX1BLIm scX0Nti7PBGcXCAbiWAh T369g2ltm7sllgGnxJN1 UDOjCSAiG9OjEK3oONBb jGImJ81qxPHaWFE2FATe VVAazXMdIJVmGGQ7DVPr nWTfE0ldDPHcIU0fscbn DSmqDMvhWZXtrLS7CPLg kOZwP5BdJLLyHBdrOJEo rck3WhHaRj3tuGWxkZbf MFxwYXJkXHBsYWluXGZz RaIaW2GbXG07aBWsAAYv LHYSKYIuYGW9VTq5TDFg XHMQFjroRKDETW6NA0Mj LTJxDXHWWQAzi6ypQIF2 TWOpg07qBSElVe7aNSDk KTpccGFyXGNmMFxwYXJc aZu6HqKlrYdtPuLvDLTo UBtqfeLzaO3yy6d3hDUg ESVprqAflpljEI8un1Xb RCYaN51udyDajEIxWQXt C5Efy347QYEwfxgihRZy NjBcZmktNzIwXGxpbjIx LbDqSyKaoCsgAOB2pj5v OJhgMwurmm9vqINfdBij bGluaXphdGlvbiBhbmQg bmHuE7DvFAYbpYEstBwi ZXJhdGlvbiBpbnZvbHZp bbfaoRNaZT78CJIjWhNt QPUzZV5pWHYrf3UiDDRw mh5vIQ1eKPAwTSQsx89m NG93LYCdYIvmTIIjXGUs o7Myd9n8QAHsEcKoO51c KFBlciBvdXRzaWRlIHJl wI1fqDfhgHJrBQ3mMGGi iO9tfTTaf8OuTSHmbpD9 bV8xgrOvebRdOQ15MXue LzEpLlxwYXIgUmVzZWN0 gQ2tUM8cjakgnvTkRGHb BAZqt1MlfZZcr1VmMRAa rfKNukYrnZDtl3AysIVs s48xxIapBv85LCcvxXVm y1LyObygRPDjpCGsEVie FrLvYKVnNHfpdS87CdGy Ga6hUEJrEA03EEQ6RNGr hN4ji3p4TIBrakq8CPPx SHlhbGluaXplZCBzdHJv oZGyHBTxg0ipJyApTXJl b23iLDsxZNToP71boNVn dCAjMilccGFyXHBhciBD MqZAfEKzdxsqgp7cxCgn aegej0RkX6OgRcaptCU8 IHgyOlxwYXJcdGFiIFRv VQOzYDSsY43uPUSjkYUy YexzF6pisJE9pE5yn2x1 YElxrVCml9Wup6BhJLAt EOJhICWmNQLzkK3iaOju XHBhclxwYXJccGFyXHBh cmRccGFyfQ== Comment (test code = w9sriWTgRZJihQO9YmBb 9850) CPEcf8kpl4XmbYPcmTSx JVgpfYBwojDysq57cMZ8 iO30TJ4gJTRtYnZ8GVKt xjS8Imi5TMUfMIBoxBQo B631u6dnn6bkgxDexXS9 lSfuDQDotaagVfE1JJcb BWOcbiapLJz0LDxsPTUu tWX6FSHflASrQ1NhIRBf XK2kdbu8YTV0NVghYYQj AeA9ODOxyQAmDSGisXiv JIkpv296PJO9PlOoPJWa bjYwqXzlwU8sJuVxQLNl YAmSgFEfzII3SIIduL4j yP8bjKiabU3srAFweKXq cQBygPUhrrHuz8ogicW8 uUR3PLBfAZDuqJXlfMVa IGNvbXBvbmVudCBpcyBu TSuusGo8RINzj8YvNlP0 DE9mKPShjrhoHKopsJSi ONAiOSZ8qYYoo1Xwt62u VSEHZxshQVQUYVP2SPAe HJCosK2rVZDhx328mJNe iHTokSBfWBO8pK2wAYPA SzEsIFNPWDEwLCBmYWN0 e6BxSnsUCFWhTBAaxfYe U4TiNcXtLKTJDVR9WUlh W0yjhJjufMQqhcSvF5Yv NIPtY3wztp3ylOQkMMVl xQKpPUByiwOPtQEqc2Bd edHqwRJmcF0mzH2dugYe vzSkmVmut7Xet8RzTREr KP2cG63tmGTqM9Wfpgql BrS3ADi1AOifHIOnWGdp RZ6ceB4nFOIzPIEfOFRr pPP1RjMBuYUmURufJdCt DU71wVDlKWUyUWtqj1Dn cyBpbmNsdWRlcyBhIHJl HMX4lIRaLS9uACQbosit ujEngLDkr2QtPZT9vMGy eJMtB1TgnrKidaOyYEHr LF8bN55ryyUyK1RxFMOf wSEsoW4hUQR0Q5noMJPt ZS8tULK6LDZar7Sucp92 kmQsCMlsv7JuJVOti19l SnOaSV8bzgiyf21pXRdt yElzicGrP8PubfYhY9cu phjojh3oOEJjsqzlKUTt XtR8CEC0Jr0utUWxRLTw hF18ug6frZQ4i2RbGE4j M7QrXLM8BTueLAKdtnJM q95cavAvISRaeKEsowVb WUYvswXuQs4eUZGmpSeb oZMpGWOfj5XbsSpyfp1e cGFyXHBhclxwYXJ9 Disclaimer (test code = d6wibQLqGRBumWUgAhEu 9844) NXBzVWJjx0tfFIDxfPTc ZzEwMzNcZnRuYmpcdWMx QXMmPmSdk5hra163zERi y3rkOPYxUjS3kMEpKNIw eRLnW809TEYnYDqwp3bl k3VpAAFwiRJcc0H0DNKA mpyohFo7bVeaE25am4H1 QspkG6mwVQFjVYMoU4Si SV0hOLIqKfj4RKX1KUU4 CMIiENYzJ7NkAD6tFETb iEPyBUu2f4mqhZwpSXWn WCJ8c5edBPxbsdUoQM7i yw9apXd3p2djziSzRRPi GLSvlGNKKGHcW7BhiQry Sm1urSg5uEiyOewiZXN7 Uut8WU5wmc91ede9gZqh HXOcghpkLkW1MWbdEASn xmlwEOc3LYotEOWtuFI5 RGEeqKJwX9MsIHGqCF9v vez7THX5TRahGOMkYwJ3 NDBcaGVhZGVyeTcyMFxm a390NLX3UmBsVG1sJ7Dt j5K6cS5srHGuDXTwbXUu NbBmVTPhlh2rqHTiBOcn u7IcMJZ7hkL5vKKsrYKg UZFoNQ21Awzhp0CvVlmv LRU6GARvazZze8Ile0mz DeNtwtNyO4mfK1YeVZOr AFBrXXBfQiHyooFjs6Ok y4KzwZNcxXy0i7yhUAAa RPBgrDnkr0zrTUB0RWHn W4N2hFCqb5olJUrvNJYb aEF6jeB6QDBodRSvC8Hn eN4iFDPqLJ0mgta4c1go AAB8CKcuNNNzUzJ5tgJ8 NDBcaGVhZGVyeTcyMFxm f453BEH3MaEgLXIgr0Xd O5PgpKpmT79tbEqmK66x EDFwfJldxQ3cyQropF0t ZjBcZnMyNFxxbFxwbGFp vzyyRCzyoaV0IJhiowjr YLOzJXueR7ukEvEhYJIk wGsiACvjf0QgYRCeGJRo MmeqlzJ8KPHHh54dHACd t5RxJPVfeV1blVPnPMyn gvFocHP1VNnaquMlLwWq gfTsQXXpvH5bSLPsKD0p EKOwyyQsze0etkMbWNMv CRLmO0JcrkkssIxpuqMx TVAdyj6gamOgIZD1OPOE RK3VYYCvDTZuu75yOOBa mDitfZ8tyEJlciWkVKUw d5YsvP2kqZPJTSTiU1sf EL7dAQfso6QziXThlZEr xYT1JENnk9DmMiDzarJh gIPshFYyO7DkfYpsD0zg QWCuCAPjdoZhaLXrv9Tv MOVlcIH8wOPeUY2AQoWN t18eZPOzJZPLycLcDZQa cGrmsVB1tpG2rD8sQeKQ ZiBhcHBsaWNhYmxlLCBj o226pq2oowP4WRBhRFYw dsopx5CyWYScSMYjjV51 GVWjISFgar4vcmljrAQz fvBjX3Gxvhz3vA5cFSQr YWluXGYxXGZzMjJcbGFu ZzEwMzNcaGljaFxmMVxk UuBlGNCeQRhyI2vdRcUd ZnMyMlxwYXJ9 [facility] Interpretation 2022-03-26 23:58:33 Test Item Value Reference Range Interpretation Comments Materials Received (test p7kqaHNeFZXotPXgWzKf code = 9973) EPFmPEJyc7keSACotTEm ZzEwMzNcZnRuYmpcdWMx NHDiEgBwa1sgg750eBTt l1bvZJIhJsC1wKSpJZWg rYPgK446TPAbTDyam7wc p7QaQOOoiYVis8S5RTUW gbfpdMv8tYctN61no2P2 CfxoY3nwTNDnYFNnN9Ch AJ5xRAFwGol9DRD2ERR7 ILFtGOEcJ3EuFN5gMXJl yWQtCFy9k5yygYuuZGIh YHE5r3odEIqckpNxVA4f di5ufUy9l2uodmFoZKLv AJFeeZGJKFBlY8RpuNgo Ah2nhPp5mFciBkshDMB7 Nro8ZV1mkt06brj6dGeh MTIgxxkbJaA7MRhzPXZv vityLAu2TPcsCMDavCem MFxtYXJncjcyMFxtYXJn hQX5NWIlgYJrN4MeMHZc JKqmHMYzmji4FfRzQb3g pIQzqCauNXmpu8bap2pk wOCkPms5TDXzCuQbOdsr RNhyg7Hji2svQMIaxf0j SHM5zLTapXvnp8Y2uDBg FRRlyGOaozOxGDPzck05 pOBleSTtmYPuat7yjpHp zWKuiNIsAXS2aBCengBi DFOfdNMgHZJzVB9lfMBr PFZqcE0kpmkjGJVgRxWx nkkxXDUbyQrjvuLxFv5f qHugINA4CNmeS7skmH7x JeD7BImfX8zckL2eUHn9 WHzoyIX6KZAbuM6vRS9n sutdf8gqAaIsDJ0ymmxz w8rhNdFbKP8pvum8w7so KLH0WDqjACVnOpW4hzH3 NDBcaGVhZGVyeTcyMFxm d349VTH3RcRzSJMwn9Fv J7JewEhlJ99csJdyK12u ACRgbXjvaD9eyJfylT7n MrYhPfPaNXa5vs91WFv6 bvcrqMllEHy7uvAsLJLr CVL1UTWrrDRzOQBpK9p8 xvXoNLDhNJX1PWPtjSZe XGYcE0e8odRyWDU1YPg2 cnBhZGRmdDNcdHJwYWRk YjBcdHJwYWRkZmIzXHRy nYOdrEOjiDKegX1fjEdm TCZdkPItyP2nYBU1GLKv cmgzMjBcdHJoZHJcbHRy ma47CFAfckMcgVAudIag pEZgJLM8LEDeWMFhYLRg KQN2WAPfOxWkfoWoYPem bGJyZHJiXGJyZHJzXGJy TQF6NOSjVlPwgeAfSVpz bGJyZHJsXGJyZHJzXGJy KDA9NLXjFfLievNgQJng bGJyZHJyXGJyZHJzXGJy TXM1PLLoWfYbnbKyCDyr bHBhZHQxMFxjbHBhZGZ0 R4pmzNFbJKBoEIczdFAw RFYaX8dusPKaZZioAGDf cGFkZmwzXGNscGFkYjBc F5fhAKTqKuCaM8UfjVn9 MDAwXGNsdmVydGFsdFxj hFHeKOV2DFBmUPKlIMQj BUF4QFPyXuRkevCmKWka bGJyZHJiXGJyZHJzXGJy VOA7RLIdKaPylgKnKIat bGJyZHJsXGJyZHJzXGJy VEK9VYZyIzMbtgEeVQez bGJyZHJyXGJyZHJzXGJy SOF4MNYwOcQvxvYbKUzf bHBhZHQxMFxjbHBhZGZ0 B1xgyLHbPFOqZVrniGUh EPYlP2attFYaJTpyNYMo cGFkZmwzXGNscGFkYjBc L3zhDNMiAhKfU5OfuZz7 NjAwXGNsdmVydGFsdFxj iEYcVCU3UTNwDOHeZBZx UCN3FJKyEwOtekNtDJch bGJyZHJiXGJyZHJzXGJy JLE5GRDzCvKoapJpQRxr bGJyZHJsXGJyZHJzXGJy SOG0NGDnSkJpsvYiVSbt bGJyZHJyXGJyZHJzXGJy SXS5NCHiJyIgheXvPLyh bHBhZHQxMFxjbHBhZGZ0 B0cpqSAmSNTlKTpxkWPo VJUnS9mcfTGpYUltYNQd cGFkZmwzXGNscGFkYjBc A2geXPLbHjUrI5WbkYf9 LpJkDXLuncEweB68Myxv j0NmSWAqAXK3MXjeZCes bFxwbGFpblxmMVxmczIw CWrishhzNAQeFBunW1ij AsYvSFWvwYonPJwhf1Pv XGYxXGNmMlxmczIwXGIg HHIxEPYyvO1jRebeW9Lj cK4oPLqiRoqtQ3zwJKSo o5VftD1vYBwuaMDsbifm MVxmczIwXGxhbmcxMDMz NEkuJ8axQcLxWOIjoFiu UQolg4SjEOPqFZSkPhim ayAtUPf1xmYhALEmnHdn lXLpCAfzmjYfzKgqi5Mo tkZyiJedSSErVPb5ftPe jwrsrUi1wRNnrKrgMTXg gImlxH5nFmZfKeXwDDve bGFpblxmMVxmczIwXGxh tqsiIZIwLEcxB1mgZjIv LIZmyWnsRMgij8CqGKFe AEFqEjtnzvOnLIPmW93u bGVjdGVkXHBsYWluXGYx XGZzMjBcbGFuZzEwMzNc aGljaFxmMVxkYmNoXGYx SAleQ1nvTvSwX2YbEVJa KtTzqQLzT9lmK7OrhSgv YXJkXGludGJsXHNzcGFy BQW2jMDsuwGmdVJniOHz UIAhQSfpLVK5bBZihmhz wFNgwggqDCfwybF9GVTr YWluXGYxXGZzMjBcbGFu ZzEwMzNcaGljaFxmMVxk JlAkMAFfJJjwR0oaKmNf R1LgTURcPqMvLfIMYYXl aXZlZFxwbGFpblxmMVxm czIwXGxhbmcxMDMzXGhp Q1eeMgAgJXMmgZgbRCtf r2OvJJQdYHYzNvyjbzFg FOb9vwZnZVGnyXxpoK31 Apepka76UWOym6bjPEPn M0LdhNUaPDQmlSDdASvm MDhcdHJwYWRkZmwzXHRy cGFkZHIxMDhcdHJwYWRk ZnIzXHRycGFkZHQwXHRy bLWiMDD0D2u5mnSaMOHx CPm7pmXnSRBjNtFgkKNp ORT8XEk7RxdanzS7mGTa Z5t7UnehxyFvQUnhbZOy sy86OCLthxPzgAJqbKor uFDePTA1BQZlHRCvCUVq EGN3UKQqHyDkogOsGSgb bGJyZHJiXGJyZHJzXGJy HKQ3FBUzEuIyzlIsAWdf bGJyZHJsXGJyZHJzXGJy HRO6QRMyQsZudhWsKEvt bGJyZHJyXGJyZHJzXGJy TJW7GNDpTaUfdtEtZNns bHBhZHQxMFxjbHBhZGZ0 K1yjnTApFROuNSknwTHc BGQrF3dnsQLjVJxaRITt cGFkZmwzXGNscGFkYjBc J4mmPYSiNsQmW6QtnCb7 MDAwXGNsdmVydGFsdFxj yPZqSHR2SWXtZPDzCAFs ZVI2KYEaMlZwcyJbZYgu bGJyZHJiXGJyZHJzXGJy LSM3SHDiGvOknsAkZSux bGJyZHJsXGJyZHJzXGJy ZUE8CQGnTiPayoNxXCbb bGJyZHJyXGJyZHJzXGJy APL5OPUcTtZefxWbQRye bHBhZHQxMFxjbHBhZGZ0 W0jopUHwTOAuTBwnhPKv AGTrU3tgcQXcJKdtLHWg cGFkZmwzXGNscGFkYjBc Y2mdUJZbVuCjF1SxkZz4 NjAwXGNsdmVydGFsdFxj iCAjKVK3IKXeQLObITZa KDU9CPDdZcQmikElWHdg bGJyZHJiXGJyZHJzXGJy FIE3JLFpClUzebGpXEuv bGJyZHJsXGJyZHJzXGJy GNT6CLSuHjWbbfHzYIcr bGJyZHJyXGJyZHJzXGJy ZCA3TLRkEhXotdDfCDzo bHBhZHQxMFxjbHBhZGZ0 G1okvXEvXASdBJsgwDCm JZRuJ3mlyMZvHTgeDAAc cGFkZmwzXGNscGFkYjBc F3hmXKMzImJhH4BqgDl1 WfKdNWCdyrDiyU14Umet x1BsOIOgYMO6RUahIQzz bFxwbGFpblxmMFxmczI0 XHBsYWluXGYxXGZzMjBc bGFuZzEwMzNcaGljaFxm ENceWgHhDRMfLJjxV3wk SnLkR0NzYLAlHqSoPP5w Z7McBrXeUac9UFjfRBN9 JIWPIAUeJTCJW9FGGcuf MMPWB0RowCapsX9xAoQv CjBsQHtrSL9rFABlW6pd xFBzKMCuNLKgQ0jlRqYk xK9mbWwtSRpvAbFjXeMt MFxsdHJjaFxjZWxsXHBh hjAysD30Wpzit3MdGGTq NFM6VPreDRxkqFbdjPRw uqgtAEkirpR9FFLyEAqh XGYxXGZzMjBcbGFuZzEw MzNcaGljaFxmMVxkYmNo YHVvISfcE8whNsZzH8Qx XMKnYoXsRVVqWn0eHXVm XHBsYWluXGYxXGZzMjBc bGFuZzEwMzNcaGljaFxm MJeuWuVyATFpPUldI3ng OjHnC4TsNDYeSwWhhUNg W2mtU3XigQoqAEMzDHot vNDwESZcbOPbRZB7lMCk eyCurCmtiOavrK3yQjIw ZnMyNFxwbGFpblxmMVxm czIwXGxhbmcxMDMzXGhp H9blUbHiDBNuwRhaOCaa b0JqMATePQLsTnprqlAc IDUvMTEvMjAyMlxwbGFp blxmMVxmczIwXGxhbmcx RWLzWUozP8gzQlBmGHOr nRsgBCgig3JpMLEaZEOv QmdxafZgSRo7nbPoQQNs kSqdrZ47Vkvsvk22EAGa lxOkx2WbVHPoIRY6FWow MFxxbFxwbGFpblxmMFxm zqM3UDBtMNdrDMQfBEWz MjBcbGFuZzEwMzNcaGlj aFxmMVxkYmNoXGYxXGxv T5ehZeFtMtRnAEshUBY4 Addendum 1 (test code = a8pvcKHcSFNkgAJ9YqUb 37) SFZeq2yzt6PzkCLtkIJe LAmomDLasmSypm37zAF7 bF32SB3gDOFoLlV4CMLf bnX4Kir5XUBiOOWmyOFj R702v3qcd5fqxoXtvCF8 BAHkFFKcQ3CqWK9qXKBh cKPlU66qeQWfEEF7ZHIz QBClgGVaXYPkZJR2SLPn vFDyB0lwIGByPX9usumc MBttSDbhDMDofQF7GTQq zRXjI5FpXAEuELnoTMKt xdz9PtDnSz9imQLchAwq MFxwYXJkXHBsYWluXGZz RsDaY7SlAP96kTTjJCFm JOPMHZLpYIM7OIc2LEYz NICQGthaTCIASV8VI4Ae WDLkUAHFWVEgw0ujFDO3 CFJzt12bZEOtTa2vKAFw KTpccGFyXGNmMFxwYXJc gYa8YlHyhBdlSfVrKBDy LKSUtHZjhmgead3ikBjp udsti2NvE6IiMedffXN3 IHgyOlxwYXJcbGkyMTYw EHUoFJhgDTzyvX1hUFVd IEJpbGUgZHVjdCBhZGVu q15aqmwoJS5tOVVnjeJo PD2aHQFeLYRbjeBOvdMc QYpbR01lysE3TKvdSG13 aWZpZWQuXHBhclxwYXJc cGFyZFxwYXJ9 Diagnosis (test code = q9yuaMHsXQKmdUR7GhBx 34) PTDns4zgh1ZpgHPkqFUa NQxmyVUqcaRkib27mWH9 aP07WH5hKFVzLlY9SMKc ivV9Tow2XHNuBOPlpBEk N246l8sbs1kowgRpkSE3 BVWzOIPtV3BtDA6dIYTs fSOpC15nnCKqVJV6FYTk RMVhuKUiOOVrEVW6SPYc yUShQ5tuNVViVO3ebkuu PBecCChzRDVggNC6EJKi jLHzA1WwCHUzEPeiZOEp svp1WsPpSl4qxEGdmBpv MFxwYXJkXHBsYWluXGZz DuJfI7KzPL90eQJeCDGw MZIYHFFlHZC2TRv9UWXp RTCYYrghZUQOUP1AG1Ho GWIzCRPXWKFco1pkFZQ8 UMBag43xOCDvUj7lSXXa KTpccGFyXGNmMFxwYXJc lZu8DrHarAfwYuMvKWWg FBojzcQirV3hm3y3aHKt KKNwmfSfopcaLQ2xi1Lw MKKmX73llkAfxZYsHHIc Y6Ydm199XVKilkowqWCg NjBcZmktNzIwXGxpbjIx KiSkXqNurGmsPGR5ob4w QGwoJvmumd2htVJftXvq bGluaXphdGlvbiBhbmQg jbSfI5WlNCEjkSIwhBhw ZXJhdGlvbiBpbnZvbHZp rvcjwAAcQM48RSTvSpIh ZXIjNZ3gDJOxc5XmMDIz nc2hSE9xCIUfMTXzt52w TA21NMDgCWnoZGTaTDEe z1Req3x4KVUnWdUjB43f KFBlciBvdXRzaWRlIHJl sH4rqGulxVAvPY4jFAVu gL0lpSIfh3DxUNUifjZ8 bN7ohqZweeZkNS21XLjv LzEpLlxwYXIgUmVzZWN0 xP6rCI8imfjnlbQeHGGz ZSVdw2IzeVSvq1WfNUPj onBLmnFftKXxd1KhpMDr s84skFihRk32SSchfJOx o3QoFmjrGWUhwJYeGIxb RfLhLXPuKGhxrR61DgIz Ya7nDTZiCW49VSE5FIBz cY3fh5e0HACepbs7QQUx SHlhbGluaXplZCBzdHJv nTFjSJMgg0wzNrPfDTFs n85ySLezXXErT80siCUg dCAjMilccGFyXHBhciBD CrLElMElutehdt8mxQgg qpfjy5JrM6XtNatiqAF4 IHgyOlxwYXJcdGFiIFRv OZScXHBsM23iUWApbWFn QzpiN1ezpTB4gA4fo6u7 ROxidXUoi6Sij8KfBOSt JFDrVIKuYPFllH1cyGit XHBhclxwYXJccGFyXHBh cmRccGFyfQ== Comment (test code = l5vzdAVlALWezAI1NmOv 9835) AHIgr7pmx5JghSRogLFb FOyysSXzwqWnlz18kXC6 iI91JZ1tQSPnWfF2AENf euS1Lmw4JNBtYMHlcQJr D226a0ogl3kggaLbxGJ1 lCbvZXVqzabcKaM0IYgc KNFfowtbHKl9OWxkYMJo sDX6DLPatXZqE8BtXIFr LX4zvfz6RCE8QXhaTCLk EsE7KRQanFNhJPElwNgc WPuix698JOZ2OaInEXEi ftShbLhxcQ0hKkPrMVIq TVgRcEQnfSS0NYMriD0x rI6btGvbtN7erYOzmEFs pNYpaQRgrhAcp6xcgsW8 zKK5YELoXZCdlSIwgPOl IGNvbXBvbmVudCBpcyBu YZrhjSk1YTDuo6NfGnO4 DP9cWVTljgmfMUtflKQq HTDlBTU9qNPbf2Tuq34i LARGMhexJISEAFM9DFKl YOEubI8bMXQnt047uINj zDCtxNTsAMJ7gU3zLWDJ SzEsIFNPWDEwLCBmYWN0 s7RqShqRYKErFYYihrKk W7ImSrFcRDUWSEP6MYzj K5vcnRbwtWTdjqNeL8Cz MDMtF8qnaa3ctWYfPNRj wLCjKMEymdRIbQTle3Qw zlUinMSijB0aoT4mmrSx nyEbrJmlp1Xpr5EsTENg NH5cH49raSCwP9Jjpdaa CoR1AJk8EUafGFJsJUkp IE7zsC7uGRExSTSnELTo iBX8ShLOwERtATcvAfRv EE92zCJxWQXwGHtka1Nw cyBpbmNsdWRlcyBhIHJl TEI5pQMcKZ4gMQEyxocg paDcdCJmz3FrJPL7eBTf oFFtZ3FcyvFjndXeONQd VD3uL65axxQrT9JaOHAq iKVltF5dOFB9J8xkYPYu GZ7qWXK3JZVki9Qdvm40 noMlEGfzs5SmZLVsi84r EnBcUT2dfscpa99nLHmf rBgshyEnU0NryrWiE2ec kpcywq2dTQEnhkkzIBRj QiV9VUF4Tz8ycEXqLIXu vI34dt6rqJW6r8VvDZ4u J3EuSVU0TCxqDHSzwvNF g26zufQlYJXalYNbhiAo QILbclFzPf6gWLKopDfa wLWyZSWvt1HhgYfwdv1i cGFyXHBhclxwYXJ9 Disclaimer (test code = a6pozBAvQCYoaOCwYdCc 9844) NBHlVDTde0zrMNMvcQBf ZzEwMzNcZnRuYmpcdWMx TAOlIlDxw3uhc172tYAu n9luSZFzNkA2mNLpPMXv dYAkW033ETJmXUikm3ny x1StLAPomDPuf8Y9UZZV jqkqyQb6jUioJ49fd4E0 MblyA0jyVNVcLUJnN9Bp EK3jHXEuKwt8QKW2OMZ0 IYYqCSKsY9LnYI9yBJFe rDFcJUt6b4qakGesLWKk WTB7i7rlDIxsrjRnIW1b la7yhZh9y5qmndLtTXFi UTQqpZUQSKCdL1EnpMdm Pt4bdDi0dQtzSrswBSL1 Thw1MT6dzm25ahd5zQhe ABYaihqxOhN2MSntWZBy egzuGOt0JUynFCOivGO9 OEIqtVGxS3NoDEZeEV3s vzw7EGM2VFnqGCXoBpT2 NDBcaGVhZGVyeTcyMFxm r688ORG2QbSwKQ8vP4Cx c2P6zY8tqGNvCWEtnVCm HpMrJEBsan7vaBEfHEet v5PvZMN1rmA8rAWseCJy HTBjQR40Jphdg4LpBeoy NHA1KEYcbkEje8Hpj4tt NmZeplKxC6vhK1TuWFEz KJReLDYfSmSadvEve7Gc w6UtuEWxiYu7z0lrRBPp TALdjJlvh9hcGDX0VQGz O0Z4uXSml1yrIOvoAPFu dNX6naU7EFDguAOlZ3Sf aV6eIKIjVX7ewfk8n9vv NHY6TMrmYSGwUoI4bxS5 NDBcaGVhZGVyeTcyMFxm v194LGG6AyOyXBPdt2Br Z9FdaKsxM73xyYhcH71k DHNhsMtwmE8clOadrQ2a ZjBcZnMyNFxxbFxwbGFp wjzmVHbvobX2FGyrczvs TBHrMEgcP2eoLsHfIODt iOkmWRvva4AoMAUqCNYl ViaarsV1CRYUu06hFRMr e5PdNIXkmC9jgYUqQUtg ihLgjWH8BNvqghWjLtCf suObRWHidX9jEOXfOM7t YYUoyfPrek6xjgLaAOCq OCPaY6TzhybyvJgvrdPr MIRups5ypnRyEZB3KJKO TN8OJLAgORKdz80wQAEx tLgroM8fgNMhmyQsOLZa c8ZlfF7kmUBMAEXdP3mf XH9uPLwfc0KoxXAggEVt gZY6HAUpt0EaWgAxluIq vZGyrNGtO7UpnOdmN0jp LIAcBCAucqOrrWVxr3Yn AVDocRH4dXOlPI2WEnBG w07jYRMyPUKLxqJsBPSx lGrgbMA8nmH2dO6zGkJL ZiBhcHBsaWNhYmxlLCBj f448vb8bfyR8EAXhOMVi toold5PbIVNjJMGdvJ97 DJLjRRJsfz4bhvgwmKDb zoNaF3Yebjc0kJ1rIJGr YWluXGYxXGZzMjJcbGFu ZzEwMzNcaGljaFxmMVxk IfVtFDXeUIfjZ9fxWnQe ZnMyMlxwYXJ9 [facility]ation 2022-03-26 23:58:33 Test Item Value Reference Range Interpretation Comments Materials Received (test b2qauCMeHAFlmXUcMxDb code = 9973) FPQpNBGmx0avUCFetOLz ZzEwMzNcZnRuYmpcdWMx IDLfAsPio5zfa976mGRv k5kiAHGwYoO6rNGyXKIm pZSnI936RXDhFEsgq7ey s3RvLLRokVWtr2K2IXFV htkhmUh0tExhP01yl9H7 RgixT6ixXWLcLILyK8Ki LI6oSLVuChr2FMB9QKV4 VPFqFPDeG1PoPM4mZGHq eZGcQLj2m0bgqDtwYYJo QOM5i0umDQwaxoJoYG9y ej2isUw5l3glrqPoIXTg ILGflYAFVDGuI7ZedLia Rf8vwHj1hYnoDveiELA5 Ylz4KH5cpk49ayp3rOzc UZAotrniTiC9DMslITIu mwhhKIt0EAnsNETfwWle MFxtYXJncjcyMFxtYXJn xVG6GGVqpOOcR7VvJIXi FKewSHBhiip5PrYpBp0v bCVdpVasKHdjo6rdc7nm dSBfXix3MLBkDrGhNqyq ZXczq2Aud4dfWUTedl5p KIC6iNXowChgs6W9rTDa AFMefEXnffIvVJAnex53 qEJmdRZluVCota2mfxZb bMDjoJQpACJ3aGFyunLl NWBkvUPrUTLqAR0gfXWl KGAizD8rqdokLZKbDlLb tzlsGWAtiDgespCsBg3x wCmaGWQ8IMnnM1eajL9d IyV3OPzsR8yjlV7zJBn5 LCogbOL6NWQtnF6tJM2l mgbkv7eyWbAfBW8htxxe i3cpAcHwOH3dmow8d4ac GOH9PDhhXXDsTiX4tdF7 NDBcaGVhZGVyeTcyMFxm q757YYP5RhKzEVAbb2Ty J4WifZuvU14ijTmlP09s NQExgKhjxV9rsOklsV0b XvWwGsEgFOg6fx69RVc4 ejgqlRjtESx1byPlSTAn EZW4KTTzqCWpMVIkA6e5 dpYsNTHmCLZ3SGBruPPs QCWlZ2m3xtGzSDH8IGy4 cnBhZGRmdDNcdHJwYWRk YjBcdHJwYWRkZmIzXHRy oHUlcSGkqFGgnB5iyFoc KXQraDPslY2dXUV0QWVc cmgzMjBcdHJoZHJcbHRy bh72NBLjjoZvoBRfoHqn bDIjHMX7GVUnMYEyLFMp UWB3GAQfLjFtfgZsIFrr bGJyZHJiXGJyZHJzXGJy HWL7XSMhGqYuyqAsJPbk bGJyZHJsXGJyZHJzXGJy IKT5LVJtUoUcvwKnVGij bGJyZHJyXGJyZHJzXGJy VOD7EDLeVoCgcoVpKPan bHBhZHQxMFxjbHBhZGZ0 Z5yimPPdLCYbPRxkqLPr VWInN2jbvLImEGmqFQQs cGFkZmwzXGNscGFkYjBc A6nhUJQtDwKwJ2BazPp9 MDAwXGNsdmVydGFsdFxj cXFjKZN3JLSrDPXgQKZv TRH8WSTrVlRtmhQxTMrd bGJyZHJiXGJyZHJzXGJy EGH5GKNwMxZjryRxREto bGJyZHJsXGJyZHJzXGJy VIX8UCKfEvBxyvLdMPbk bGJyZHJyXGJyZHJzXGJy KTP6JOTwUiTawdIeEMdl bHBhZHQxMFxjbHBhZGZ0 X4gjbLOrNKZaAFnbmOEt MIQnZ0jloXPgLQzhWUKd cGFkZmwzXGNscGFkYjBc B6ypPCNwBvCwE8NbmPo1 NjAwXGNsdmVydGFsdFxj tASsGAH3GUNhVZNoEHCd JFB5YUZfHzQbgsKfIWps bGJyZHJiXGJyZHJzXGJy EGN5GSIgNsHcpnSqHPrr bGJyZHJsXGJyZHJzXGJy WXT8FBPqKkMkiqHgMLbk bGJyZHJyXGJyZHJzXGJy WYL2APLlXcHeoqSjECiu bHBhZHQxMFxjbHBhZGZ0 R0maiNStAMSqELxclVHd FPPrA2igmWDcZLbcGEZi cGFkZmwzXGNscGFkYjBc X2tpLIOcYjRcH8JydFz6 AxOmWQFmacDqeQ70Brnv d4ArNPIxBII8BWkaDQpl bFxwbGFpblxmMVxmczIw CIptzkvhZCHaGRfyP2ub QcNqVONsdCcdKFtto1Mm XGYxXGNmMlxmczIwXGIg OOOvRILiaL6mOapxE6Kk iI3kTJnkTogdW9ctIOXj t5GveM8rPMhrbIBuamsy MVxmczIwXGxhbmcxMDMz OTsgJ2cxEkQwDEJgpPwx CHgso7PaHROxHXNpJhdp kfUsMZb1dzXdAMKsoTfy uXAhWIqjisKtrUyqd2Tg dzIexTspSUMxGHc5djUl vjgudBd7pPUhdTziPCQl yTqseN5rEkJqVaOfOFop bGFpblxmMVxmczIwXGxh osmxETPyCBgtE9hcPaWw MUTnbZfyTPdeb6QmQBRu BGCvUzlymkKpBEHhU71a bGVjdGVkXHBsYWluXGYx XGZzMjBcbGFuZzEwMzNc aGljaFxmMVxkYmNoXGYx WFeeG8tbFqEgI2HeAGEb LtYvrLDrB1bhA0PowAcs YXJkXGludGJsXHNzcGFy SHB6lVQwqxAcsZVfdKTk ZMAcBWggFSU2tMJkasnw xYCkrawaIHsbtfD1ZFUe YWluXGYxXGZzMjBcbGFu ZzEwMzNcaGljaFxmMVxk KsYqQEAsEZayE7nbHkHu D2HaRVAzIbRkPaXQAKEu aXZlZFxwbGFpblxmMVxm czIwXGxhbmcxMDMzXGhp C5qdJyHkNKKtqInfTUrh r3OcTPAeBCNgWwokmdTg ZOd0sxQbRZJzjCnhmL72 Gcwmhb10BQJzc7rrNIYd L2DczEEuEBRqrQDrOBbl MDhcdHJwYWRkZmwzXHRy cGFkZHIxMDhcdHJwYWRk ZnIzXHRycGFkZHQwXHRy qDKnHMC4Z0c2mwTaKVUr SZy8gxUiWJHvJwJxhIMz GTT8XAa1WlffbnJ9fUAl D9t6UcpeksTpVBwctFVa pj33UDHvbiExcDAmuOft gCPgUZD9TNKaEISyOVZf IUS7NFToJpNpamMxQSam bGJyZHJiXGJyZHJzXGJy JQY5SVEcBjImrdMkZCgl bGJyZHJsXGJyZHJzXGJy SSR1DNNwUsAyyqLpQBdp bGJyZHJyXGJyZHJzXGJy CRV6ANCvFpSsmsYdFZwz bHBhZHQxMFxjbHBhZGZ0 J1zttACyREBaZQgcoOZn YNCjA3jgbOYeHKdsHDOi cGFkZmwzXGNscGFkYjBc T2fnRPYaZgNcR5RiqEf5 MDAwXGNsdmVydGFsdFxj rBVuYPE3IPIcRVDjKMGt YMC0PYRfChNtmyGyJFrk bGJyZHJiXGJyZHJzXGJy AHJ5MFZzWbUrqoPrRTub bGJyZHJsXGJyZHJzXGJy PXY1UNImIiCcjiXlZFpo bGJyZHJyXGJyZHJzXGJy TXS8KUXfMkYxpzLpYDdh bHBhZHQxMFxjbHBhZGZ0 U4fmiMEsZTIwQZoxyYZp JOMsG5euoZZuUVgiRNZe cGFkZmwzXGNscGFkYjBc P6vfOMAfQkMjS8AcfKx7 NjAwXGNsdmVydGFsdFxj yAJpGSK1YADmCXGoQOSm CFU4KLSlGdFftaCtHKdj bGJyZHJiXGJyZHJzXGJy ZMU0XAJdGaHiktSmPYbh bGJyZHJsXGJyZHJzXGJy TLU3EBFzRoUxjuYxCUng bGJyZHJyXGJyZHJzXGJy PLW0URJhNkEkonLuAXwg bHBhZHQxMFxjbHBhZGZ0 H7zyaXDhRUVlUXzjbHQq LYIdM1zcuXSvZHdlPYVs cGFkZmwzXGNscGFkYjBc V6wgRVCtVyKqH6MpxTy4 MsVsFNWwtmOjnJ31Peri v1LzOFQzFSK5HOqpTVeb bFxwbGFpblxmMFxmczI0 XHBsYWluXGYxXGZzMjBc bGFuZzEwMzNcaGljaFxm GKrkKpMvJFIcEKcoN8qs WkOcA5UnXWVnPvWbAC8n G7KsHiGkOgr3OEkgZMY6 HFGIVYEdJHJDM0XKMyph QAZHC7BoxTntxI0gMeYj ZfKwXDsyWR2qCLViP4rz qSKyDCWhVDKlL8tdHrQi yE0ldNvvYTglTxXcBsBv MFxsdHJjaFxjZWxsXHBh cpIaaR87Yxxli9AxKCKs DCG7HAywARzbkOfalUHg agytBJnnuuR3CTQvHDin XGYxXGZzMjBcbGFuZzEw MzNcaGljaFxmMVxkYmNo IDRrEIriH7kuPvHpT9Hk XKLaOfMsGBYcOo8dGZPc XHBsYWluXGYxXGZzMjBc bGFuZzEwMzNcaGljaFxm ZQgvKmJfNNTxAEniG9fx AgYzK7QpBYSxDeFiuZXa G5kjI3BffVqkLVQeQXan iRMcOQTpfCUmZFS3nFHc bbHnyKinoJnimN4rGjIr ZnMyNFxwbGFpblxmMVxm czIwXGxhbmcxMDMzXGhp D9sbDfWcVQRdqUfoDVpk g1HaNIDqTBDqUejesyXd IDUvMTEvMjAyMlxwbGFp blxmMVxmczIwXGxhbmcx NXJvMSxlS1ipYwAgHKQl oXrqDFvqq1YeJWTkLFJh JkxamxVwAPv9svQzRWBm vYlfkY01Pfvgrc51EMJk jlUea7JmZQYaNPW6NYre MFxxbFxwbGFpblxmMFxm qzN7EGPiKHpiMENwHQHq MjBcbGFuZzEwMzNcaGlj aFxmMVxkYmNoXGYxXGxv V7htRaLiIbMcJZmqJYD7 Addendum 1 (test code = a0cywRPzEKTnaQW2IfDg 37) BRYnf6yvi3QxlOEyqNYq CBfpoLXariAtyi53lEP7 mE42FU8lEFDqFgG8BAHn vaU8Idu3TCJsDMHnpDZo E989i8vtc1fysaLeePL8 RQLaLUMyH9VwXJ7rKMSq yDJdN80qeHHpRGV3IQFu UYHldYYvXMNbCHF9KUXj yFCaI6mdGIMtAF1qmgoh JBniDUrtMZGqwSZ3JZGv nFGsX0SbEPNaTHqhDVQt rsc6ArAoEh2mbELnoKbk MFxwYXJkXHBsYWluXGZz DqAiD9NnNX26eABtBMFq BAAEGNAgTHE0KLu4BFKo KYDVGvkvOMNWZS0RJ7Tx FFXdOKHCYLBaf6xfOKL6 MGSgo30jKBBhGt6qFJRx KTpccGFyXGNmMFxwYXJc kCz1PjJgwBvcIqInMKHf FWYGqFZrsrjrmq2bdTrg edmpg1DtK3QpVczwhFR4 IHgyOlxwYXJcbGkyMTYw MCSrASmsMKgzlB6hZYYo IEJpbGUgZHVjdCBhZGVu y01ttyslIG9iLKOyneCh SP0qKMWiYNGgpuVKjsPi WAorC09fnyC6SKopPX25 aWZpZWQuXHBhclxwYXJc cGFyZFxwYXJ9 Diagnosis (test code = k2jjhIHtHVDrhCO1EnSw 34) DLGir6crs6MbiCDhsDQx GMsbmNZqjdLunx10vSW1 lE63GH6eMTAePjY6EHXn obK9Bmo7EWCrZBPvfLXw S964m7qdy0hazoFhwBQ3 QYVaKXEtY5EwIX7pYJXq tSVeC25liQEqRFN2TYVl BFStiCTgBWVmRZR1POLb tONuT9buADTjIT7qgucu WXgzZXycPRSmwVY0NZSz yTZeI9DpTADqAFxzYAPl hed9OqBpYr5qgOLhaQfz MFxwYXJkXHBsYWluXGZz InIyU9KaET65gZYzFSKu OTXKQHMxWYX8JAe7PIIu BCEXXiwrRPXXCD0ZZ9Dj QORxBGPLJDUpl4wgEIS3 AINqt70zQHEeKt6nZZHz KTpccGFyXGNmMFxwYXJc uHu8NnWkzAcoOxBlCDWp QZblxvCqsB4ep7p9cRNa GFEfpgLjyledRV4vq0Kl EREeX44ekuRrqNZzFJCk C1Ijg613MMLmekiyfZGf NjBcZmktNzIwXGxpbjIx FaPoVqYywHdlGVA5dd5z QHzvWgcjyz3sdYOwmJjl bGluaXphdGlvbiBhbmQg ywJhH1SmRBZluBJvmVmp ZXJhdGlvbiBpbnZvbHZp eiqclEHkVA01DSEbJfEz DYNoDR3bLIDlg6XoBCJh qo4bTH2yRTVzJXCob25n GW63MUPwVRfkXBByTGQw w3Pil1h8KYWhQrUuQ15u KFBlciBvdXRzaWRlIHJl jR2raWqxjNFlJE2gVPSx pO9jqOTbd7NuXBGpzjV1 yP8lmiRvohZuKH26RNee LzEpLlxwYXIgUmVzZWN0 zW4vGD3nougooeIoPAUe KUJrk6UxiLWbu7PmVKAt xlRMbdUhlDVen8VklDSu v18vfVbuFd36KVqjyICi x9PjCemcPSBrjTWqWTki YhDbIFCwZKtpwR70BtWu Xz2pTRLlMA65VGU4DQPs uO5zp6l8GJFsvti3QWHq SHlhbGluaXplZCBzdHJv kMQyPLPrv3alKhGyDLWu b77qWGqtAGXxE74mjAPj dCAjMilccGFyXHBhciBD FhYIhLRiwrjbzi0hlJkf mthzu2GuJ4ArXfpbiWZ2 IHgyOlxwYXJcdGFiIFRv TSVyDPCdV90kZMSdwOYv SuenF0avaNX0tK1xh4b1 FZtywQAcb4Bmi0NiROGg XNHjKICmVBLisR6wsVbk XHBhclxwYXJccGFyXHBh cmRccGFyfQ== Comment (test code = s2lrnQQxHGZinOQ8TvCs 9835) SAXhy1qtd2LziFVnmICc CYyafBQfcmSaqb45oAU0 xK81JF6lFRYhOdK1IWNp bxZ4Qvh8EDWrHYCogTHd W623z6rok0alifCriPE0 kPlbGTWlfjvbNwZ5BThd RINsioswCHy2IZxwJIMu vRW6YXKvgUBkD7UaIGQn JE6cbvt9DTP3DHdrJOMj BeS6GLTuaMXeQULotTkj MItrp819MZN0GuDrPBPi osZotAgxjR4aSnIyOPMn QCnTpPKygIX0GWEfwA8j yS6joSylbB7zuEVfvOMm yLJdxRCgtjSbi7ektmG7 hPP7PGGxCRJmrZIygWUe IGNvbXBvbmVudCBpcyBu YVrpdNx9UXRwn5FrRdZ1 SZ0ySFDjqzepBNmzuVCq CKGnJPW3zHUoc2Rjw09q YZGDMdyfVBLOQHA7CFIx SHZjiU5nZJAct261jUJo kMShdBLtMNA8bE2tAZPW SzEsIFNPWDEwLCBmYWN0 c7AbEwqNGYVsMHQsvlBw P4OrCaEaRKMTNQH5TGbm D8ocgGcxjYZizkThZ6Qr TJXcO9pvwq1pcLWwDTQa wWWpOPDjllJBnPExf4Ig iqKouTElnV7dpJ7buiGn wiDfsScdp1Xmf4YrYABn XE5oD97aqFFgD4Ncbzmg QqC2DGv9XVfeBFUjZOvf PR9usS9zQRHtCOZfZUIf wSS3RjHZqQQrAXneHdTr WG80aYGzWHPcIPylx0Hm cyBpbmNsdWRlcyBhIHJl DFK8eQUeNR7kURWvruig ehOlbLCrz2QjKAX3pPWp cQKuW5IfhfPuapZrIHWx CO2eY06vfrFyR3YcSVPh vBUysH5dUPV2H7onWEUa WG2lXIX8HAPgd0Ryer10 vrKuPEyua6OsQSFlj97g IvHcKT7mxvoau92fVGsq nKqknwSpS5LxevXfO8uj dxwucc3mZNYkrpaqRBHc PuT8OUR2Mv3azOAhLZSl mM81ek7dfWG2y4RqTC4b V0BjWBY9KXvuZNAcbsVX q40mnhOyIMCseHZykqRt YQMjmaWoTm4wBQOmfTjb gPWrXIDeh5ZenWzhpm7i cGFyXHBhclxwYXJ9 Disclaimer (test code = a3vfnYLoGUPttWTtGnBk 9844) KRYbKJUpq9nvMJNdjYYt ZzEwMzNcZnRuYmpcdWMx NOThRyZjw6cdk198bDHc g0dlTRKjKbU2rMPgFYSc kVYxF420PKDgZZloi8df a3OoIINtoGIgt9P9ZSTW eriwiTj5sNetQ35dm2V4 CnipS4hiMIEyVTEtR4Up FU5fOAHzXhl9HBD2EBS0 YUMkJPJaG9UbAV8mBWMj qLFrTJd2t8tuiLsbNNXu IYF3f6kjAXjqhfJrVW1f tc2udUr5m9wnylDfZGIj JXNyaGZPHPCuF4LfnDou Hg4guHf1vRpvHbkjVXL5 Fca1OD8thr74bot8tPuz SIEojkjqRoO6GNwkVMJc msbgTWh6RMmvKABvoTT7 UPUztQSeJ5IgZIHvNW8c ewr2QVV1ILieBHNkAiF8 NDBcaGVhZGVyeTcyMFxm t779JWU1OgVqQX5iJ7Hv q4A2xA3fdIRyFWLbwQUv IfWoZVPdsi3dgCLzSRuk u8VsHZZ6obJ4sKKpaHWi ADPsRO11Gncjd4IkYfnj JFP6LZElvmDui3Cyp1ih TlYnszIkQ3xdH9QvUOBt TZXsJMPwXdYrivByp3Te o0AzwPPfzFh6a5qcGGMh PZIlmPukg6alHWB5ZAZz O3M4wVZnf2jzXJifVEBl cGL0ecE3YDVtkASfW3Pr rM8mKMOaLX3grch5m3lr KGK9LFrlNERnYzX0thI4 NDBcaGVhZGVyeTcyMFxm c691XQA0TbOrLIYxc5Oh V5WtaSvnV93niNytC08s HJEwbGasmA6znTyalC8a ZjBcZnMyNFxxbFxwbGFp snbyCXkcqvY7NUuidrxa IFObHRpkU2wsVlBcUMAe vJmuFPhwy1XiCZRsQUIo IbvgzyA7GCXOg97jAMZe w4WaUJKwwW9tfLEhVYhy yyIcbGA4JOpifrAfOaDt vdMbMHUkoX6oXLZeAY7e PMJuqrBsxk7pdkTkMMUh MSDcX5DcewsewGwglsPv EJBsfi1uuuAjYYM7QJTW LJ3WZAIrLPTxz51pRQSz uMvqxY3iqZMyyfEnIKDm t7ArjB1hhUFCFLVmK2tr WZ1eGHljj3NdgXCtcGIg fPH3EIGju1HzAmAfqoIt mSSnkTHaL3QsbIslZ4rl MACgGJOqueGjvIHdi5Uq HDXsmZS5iGCfSS5KNsUN c01yAVWkGZORijEuPEIc fBlntPS3yrZ5mM9xAzXV ZiBhcHBsaWNhYmxlLCBj w462qi9kldM7BTWaGHAg wxrjm5IsKANxZMKnlZ04 MQLoVNCbwi3utygbxUAn lqBsX4Ejbio9qH0yFFZj YWluXGYxXGZzMjJcbGFu ZzEwMzNcaGljaFxmMVxk ZgTrRKUaCKabZ3whHpFl ZnMyMlxwYXJ9 [facility] Interpretation 2022-03-26 23:58:33 Test Item Value Reference Range Interpretation Comments Materials Received (test k8mgwAXrOTJpwULfZvXa code = 9973) QYFhGBEhm5wgZPDafMFd ZzEwMzNcZnRuYmpcdWMx PQCgGfDxq9eun517tGZm d1tkUELwMxP9bKJmYFEk lCLzM951UIExLByhk5pe g9DjTQMvcQBtl7S1VRGP mrdvoHb4sVtzL03za2N5 EwdvC9noITJiXRGvP0Nd TS8uTNWoQrg7ZHA0KDI7 KTObMHZuZ4InRP6hAVDg yVBgJMb2s8rweHmvXOHq IYE8q4anLLsmwtEtOE7l kd1wmJf1p3qzxlUsUGCq UOCegDSEDLIzP3RbmKrs Hi1vnBe7sPyhWtltIFI7 Zml7GK2wqn33ook0dCje NOUtfkgoSeS4WBhhYIYe hlgtUHz6QFscIVImkSbq MFxtYXJncjcyMFxtYXJn eGR5BUPebBDvA5NdCOYd TRrpPMKjepz8NmYiSs3j sQHrtWryALxmt2bto3qv mYSnYkm6JJPnAwGcHvci XNglw5Ppz8uyRAZoeo7b FVA0kJMzhYhkc4X3lWEw HXAtzOIfqpLxMKPxyp12 kBChiMRjtJDuye3ffgSo cYTvyYGmHSR9rCXpvrVi XIHiqAFhOYOfWA9jmUTk CXDsyO3vgwheJTSvGmDm pptpQNIkuBguxdKcHk2w lLywBFI3XNupA6ybcK3e FnX8TNtzA2ppgN7uYQf4 LIvvdNQ5FPEshZ1mNY0t delly5spFlAdON0uhfea s7hcElNeZR8iolp4p8mt JEE9WNofCFIcWmE8fxN4 NDBcaGVhZGVyeTcyMFxm z581ARK1SvZmWKYle4Fk D0TvuFgbF12urUliQ87h YZRqiIrhgA5ckNmosM6b OhTcGeGhEYs4da64LUt9 jostfJxlLUg1jsMwYRYs TNA3PSXzdYQxTHVjX8g8 utZaUBOjKQG4GFAizVEj OZLfX1w0hgFaSVB2EPw6 cnBhZGRmdDNcdHJwYWRk YjBcdHJwYWRkZmIzXHRy gHHepSGktFWytW8kxNkb OSIppGYrxI2mEXH8HRRd cmgzMjBcdHJoZHJcbHRy mo24TACzxhBjdUJboQjp xVHrPVC1XJUwNCUyBTKk AJC9FDHuYwOxwsJcTPkh bGJyZHJiXGJyZHJzXGJy NIW1CYAxFjKxbvAaWZjx bGJyZHJsXGJyZHJzXGJy GGD5GKJvGeWqpvKpHVfq bGJyZHJyXGJyZHJzXGJy ILB8YHXwVoCadyFzTTrq bHBhZHQxMFxjbHBhZGZ0 R1pufHFsWVZuUIjztVNd VQGeO6jagZFwOPmcUSJw cGFkZmwzXGNscGFkYjBc R0wgZBVfXdDyS3EhgDf7 MDAwXGNsdmVydGFsdFxj gXJzFNR8FMTnZXEeLYQm IPB6SHMkLdPlnaBbDKml bGJyZHJiXGJyZHJzXGJy QOG5LFMoDxJyiyEcXJty bGJyZHJsXGJyZHJzXGJy FJX5MKXrJhEliuAhWAqf bGJyZHJyXGJyZHJzXGJy TWP7QZOzLoBejxJyITip bHBhZHQxMFxjbHBhZGZ0 X2jflPMoPGHmDKhbtCGx HJVfQ8uguLXbDBqqPVBv cGFkZmwzXGNscGFkYjBc P9kyZXIbThVrX9SvxDj6 NjAwXGNsdmVydGFsdFxj tVSqJUP5QLFfXFDeJQPt YEP4UATiNxWkwuOdEImd bGJyZHJiXGJyZHJzXGJy RMJ1SCSqQhDgdmLrTAhc bGJyZHJsXGJyZHJzXGJy HWQ9QXWxDoWajuHvLGzi bGJyZHJyXGJyZHJzXGJy YPV2BKCcNoEwqaObKDkb bHBhZHQxMFxjbHBhZGZ0 J4rhkDPcPEOqCRzroOBl APCxH0qxzQQlFMfvEUFi cGFkZmwzXGNscGFkYjBc M5lpRNLoScWgH5UemRn4 TkNpBGFmcrJhjV12Atnt y4FtBGIeAME4HKcmFJlw bFxwbGFpblxmMVxmczIw YQsodiqlDBJaYZcvI7vo RpAlGCBttRaiMRifj2Js XGYxXGNmMlxmczIwXGIg CPAuFRZtfI0lFpamW6Ci tJ7fYOxkKxpuM1eiRZKp e2QscN6aZAmvtJXhcgul MVxmczIwXGxhbmcxMDMz OAiqL8xiTkFwLFCfaFln CSkea6AkCKOlKPUdOvya tmRkGJv8mqJdPTQtdUgu rPKhPZrnxxRazHqon8Js jdTfeSyfAUPpFJz6tlSx cjdkvUv1bQEkkHpgZZMy jYeebT0uMkExTgAgKKfk bGFpblxmMVxmczIwXGxh yoskIJWqLBmsS7buSkSd OHCylWubWHzqb3UfYAIp LACwJtmrxpXpZBZoQ34j bGVjdGVkXHBsYWluXGYx XGZzMjBcbGFuZzEwMzNc aGljaFxmMVxkYmNoXGYx LXtdU4knFvHnE0UyYXTf KhHqhDXnG5iiO6UqbRaw YXJkXGludGJsXHNzcGFy XJR8vBTmpjFjyFBihIZh BMBjYGzyTTR4mDSqyvra nLPzgbqfEQjzisZ0ERTq YWluXGYxXGZzMjBcbGFu ZzEwMzNcaGljaFxmMVxk MhHqUNHwYMtpU0ztRiLd T6VwFRMeGpYoGjPEVJXf aXZlZFxwbGFpblxmMVxm czIwXGxhbmcxMDMzXGhp C4aoQeNvWIFewZjqMTbx s6WcXRNsCBVoTtqxczGl SVs4ehKxWSUtbCcvrM14 Anlhir15PKIik8lxRTQv U8RmrLAcXRCxtOUzGVaf MDhcdHJwYWRkZmwzXHRy cGFkZHIxMDhcdHJwYWRk ZnIzXHRycGFkZHQwXHRy kXOyCOD8X6a7odYhESEs SYi5xbDvPHDfQwJdkSCw GJR8SDm2VjfxfcH7kOAn R2l7VhfjrvSaKRjqhZAs pa74XQXfmeGtaGAlqXoa wBFjJSD8QBKdABCdKETy BYR4EBFvWkOzycGfOEbv bGJyZHJiXGJyZHJzXGJy ZWJ8MFUbUqEuxpCdAOcq bGJyZHJsXGJyZHJzXGJy LTE1CTEyWlMmtpUgCVks bGJyZHJyXGJyZHJzXGJy UVX3EVCdLoVrdfHdGNus bHBhZHQxMFxjbHBhZGZ0 P5pmvOKcJCIvXBnrdZQq OMTdS9qizZMxLRjzZDWf cGFkZmwzXGNscGFkYjBc W1ivVRQzNfJzQ4DnsJb5 MDAwXGNsdmVydGFsdFxj lVJfNSB7OWHqSLLtQKSu BXW4CFQgNzNlizHvYVyq bGJyZHJiXGJyZHJzXGJy XHZ4QEBzIeObpeOeAGkm bGJyZHJsXGJyZHJzXGJy MDN8JFUnJhLnznYsAMyc bGJyZHJyXGJyZHJzXGJy VBF4QPEwCoXsqjUrXOds bHBhZHQxMFxjbHBhZGZ0 R4xpeAZvIASwPGwgpCPx KUUxJ5juuSYwLUouLRGi cGFkZmwzXGNscGFkYjBc Q8awBMRvIqOjX3OllEh0 NjAwXGNsdmVydGFsdFxj bRNoOOD7PLBdLFGqPDKi YCR6ZHZgLiVjofGuPVke bGJyZHJiXGJyZHJzXGJy ZAL5OODlTwXoygZmPDxk bGJyZHJsXGJyZHJzXGJy HUA9FINmJcLratOmQVzm bGJyZHJyXGJyZHJzXGJy HMT9UBNtDtTejxKpYJvf bHBhZHQxMFxjbHBhZGZ0 N2lcnCSfZAUqWGbqeCRn XGZgO6jozZXrIWntAIFc cGFkZmwzXGNscGFkYjBc I5lcLCRsBiYqI1WejCb7 ThZvEJJfhlFilR77Mmfg w2WdMIWwOUW8AQjuDLgz bFxwbGFpblxmMFxmczI0 XHBsYWluXGYxXGZzMjBc bGFuZzEwMzNcaGljaFxm UEsxCxPlHBAvOGgwH6bi NfHjF9MwFPDvLfYzNA5f N7NtBbCnRnw9ERgpUBU3 VPBHOJDkFPAGE1EYPuwy JTUZZ2SbpEoszS5yBrEb OgWhUMxfBD2oCDFgT2yo eQCpIKYzXUHlT1ygDfNi eY7ruZaiTEcnUdUsBfKd MFxsdHJjaFxjZWxsXHBh nsEqpI07Dehxz4NvKJYn MET5TBrjRKmgeYhucTCs ilszEApmqaN4CXWfGZgp XGYxXGZzMjBcbGFuZzEw MzNcaGljaFxmMVxkYmNo RTLvGGbxR4vfRuEbK3Gu OHChFuEoHJVbQy4kBCHw XHBsYWluXGYxXGZzMjBc bGFuZzEwMzNcaGljaFxm OHieUpNgVBBjPAzjD1lb YdFmK0KvDKSeYnRgzLPq K5siD7DenYixBGGaBOvf aWMsSPOeyABjGNI7aKLt tdLrxNvlzJmxuB7qTyHt ZnMyNFxwbGFpblxmMVxm czIwXGxhbmcxMDMzXGhp I1tsGeWlXUMcsIffHNwx q9VlXQWvXDFgKzfocpMu IDUvMTEvMjAyMlxwbGFp blxmMVxmczIwXGxhbmcx ZPDdTTegB2njGlAuKUZr xRuaNOepx3OqMYAmQCIf UhnzzvKnAXs1szXlHYUr aVlqvY68Pononv44NTLv ndHwv5IgJKRoPYA2WJsx MFxxbFxwbGFpblxmMFxm yuV4HWSgATfjJYIsIWFs MjBcbGFuZzEwMzNcaGlj aFxmMVxkYmNoXGYxXGxv Q7goZnNeDaObHWubFZX8 Addendum 1 (test code = n9znfGBiVVZjoUK8GjCm 37) WRBjy5irn3WyyCLcyQMd TOsipIOoljVfeq67sYC4 eO81CO4vFEFpMfD5ZPCg xpX1Uuf7TSDvGWOxlXAt X299m0bhh4xqryIqiOX2 PBIcLHJdK0PcXB8xIZIc yGDwR50irKPfLCX9TYUq LOOehVXxJJBrXXQ2WRDq gCRyI8gqHHAsZV1ggglu SDbuUJzmCKFvbAA4UVNv uGYkY2XqHJKsZValGNQl log3SyNvAv0veMGjzIhn MFxwYXJkXHBsYWluXGZz IiAqD1SfYM33hNRfSCRv LAELDCTnEXL1UXc8VJOo FGRREcpbIYPRYO6OF9Fz TIKxZPLEYCAhh0eiKBT6 FILcm54yDUGaTf0lEERc KTpccGFyXGNmMFxwYXJc sFt1QxLbwDviToJwJILu NCRVjIVidtbybe5ycFwc tnxcm0FbL2LfAhpxmBJ3 IHgyOlxwYXJcbGkyMTYw ORFfSYpcGBpuqP9cALTi IEJpbGUgZHVjdCBhZGVu f81qaioyNP8xJPBwfvXd ZH8cBIEuSTXzqlFUxsIv GXvgR81fjuP7HNlqWT59 aWZpZWQuXHBhclxwYXJc cGFyZFxwYXJ9 Diagnosis (test code = h0orlUZiDIWjcRF9SgWb 34) WTAgu4eon6XxyFHveFPg SZutoVYaqsEhdc39gNI5 kV21IX4dIKZkTtX1UIBt ndR8Mhp2YBKpSTAfoMBc W138s1rwa1ykcwNnfTX3 WGHtTVDjW2LzNT8eKKFq eHRlL51ntEHwIHO1NCUi LQFekQXeLFHzSZE1ZOKd zATqV3tiGUBfTN2vbaqx LAbkTStdFGEvaSO3CBAs jBIyE4GqOVArTUfwXWTk fvt9JkVuPr9pwPVllOtc MFxwYXJkXHBsYWluXGZz AsYdI1PlVB28rQPzJLJi GXNCHPBtNDN3TYi6CUAb IZRHRibwUAEREX1XC3Jk IQGxIOZQLPBwy9bwCOE8 ERAgt42hDOKeIq9aMIDb KTpccGFyXGNmMFxwYXJc mHa0VaFwoFarYeUoXWWy FCteufEkfI6dw1l2qHRz UMHaisPkoragEB1wz9Ro QHIvQ06atmIhaOArGMRh I1Czd321MOKzckgjsCQr NjBcZmktNzIwXGxpbjIx PxXmScZheMvyFPI0nk2k DAvcPftwtt0orQDmxMvo bGluaXphdGlvbiBhbmQg prWrJ2YgFJQzaWEjxVoq ZXJhdGlvbiBpbnZvbHZp evplrTBwAP24VISiAkLc SMZvFE4cEQYdt1MhPPPf yw2sPW3lZQEkAQNha08j AK58KZNvRMkzBOLoVBNr k7Whh0w2KUAiGsNjS54f KFBlciBvdXRzaWRlIHJl gR3jjIquoTSwOY8iBLOn sO5lwEDev9ShOEOagwP5 sN3tviVtpmBxTG26DPdd LzEpLlxwYXIgUmVzZWN0 jZ1qFO5xaeyofmDmGHEc VXXqa1CrdYMjv1NnMBRg ntQIckYnpLOas5IdkEQv b00jcTjfNk96IWulzXNl x3TqQlqhQPFalKFfZLke PfRbUFMdKOvriD39OoHj Ij4sZHZtNO62RBX5BYOx uF1mt8h4KQLwzvh5UPWp SHlhbGluaXplZCBzdHJv qDJsLKJvq2nuVsAvAOSs x17mOKaiCWHqS54lxUFm dCAjMilccGFyXHBhciBD MdMEqADqxmvztz4jiRoj ydeaz1VkL7RrIkfelFT8 IHgyOlxwYXJcdGFiIFRv MGDqFRQyW95gMUHezZKa LctlY9ocnTJ0lH8rn7s5 BNqllCUhg4Hsh0PvUXZi QCDsCWGmHESioP7eiNji XHBhclxwYXJccGFyXHBh cmRccGFyfQ== Comment (test code = y2xwjIKwFIBtzGQ6QvMm 9835) TRPdh6zfm0KurGIngYLu PQfojUUwbaQujd12jAJ1 vO56RJ1yKLLaFqU3LXJg ykA0Czh0NCBrWDBonTXz U780f9nnu0nvnnSmyCB3 sYliWIXktsfuDxE1BNfh LCCmgzfmLTp9SQdfQQEp qWT4UZNtkDDrF4XfDZIa JP4yxky5JRZ8EHllWEIb LdY9TFGilRRoJSIimAfi QGsrk373WIU5RyKaQEHh cwCpbLhpxE6cAhIlOFHp ZOaKrNUzsNJ4WIKxaQ9q fO4xtFlypV3soUZamYYp nKMnmHXqxbDyx0hnplC0 xOU8AFMkPLDyjFNpxQNt IGNvbXBvbmVudCBpcyBu DUplkJg3KNNqr3WoQeF6 MZ8nKFUlugzjNDhjhLOr WJXeEOP3mBQyz1Kdl81x TBJFLvrbWUGEWZM3ACYv MGGxcO9sGJPhx415nVWc vJUcoRKfSGC7xX1gNQYJ SzEsIFNPWDEwLCBmYWN0 y4AbQblEXZIxTERszcQt P1OjHsRsAFRRJZS8FZna U7txeBaxxDPhevClU2Yr TWAxF4ovbw3srCWpORQl lAWdKEBovoPAgXGem2Uh qoVbmTRvzM4fxB8ysjQn xdHcnDaps3Odn9SnXXUg MN4nX79cdBLfV6Yoelrv QaN6PZn0JBkzKCTfVTur AR2wyF4dWTHyGKHjBAJr oJT3JkJMgQHcVNhpDhYp DC97qOBuULNyTBsms7Is cyBpbmNsdWRlcyBhIHJl XUP8hDUdKA5tOGQqsqhh yyLakUOnw9IpCJB2eSQc sAOhC6MuhiXojtGcUWRl AM6tK08uazEsL1XwYQWk yYSkfY4hSEC7Z0poVJFj AI3pWXS9RJKzt2Pyww85 bdVaJVafv1BmEBRie44b ExPzBF3xyanmo89mAXmv dQxqomDhT9MouzHcH7bt cxfzze4yALQzlxpgAJEb GcB5NOS3Fg2jwHVqGNWs lF43tz6baAZ6o6HoTZ3x T4NoCWK0BEyjQADwysSQ y54cjrKtWQRlnOFkiqTj GVWbugJfJi3uIGWsbDhz wUGmSSEwi1RngNonng9h cGFyXHBhclxwYXJ9 Disclaimer (test code = l4zitUUkITVuiMWwYsFv 9844) UCQrLVKzj5pvYVXxqWOe ZzEwMzNcZnRuYmpcdWMx LWIhOjOyn5ppk115iMFg s1iiOEXdQbK1xTNiYAEa pKUkH942GYDiEJtxc3kr n0JnSXMcqZCkg9U4EMQQ bclxmQw4nYgnZ31bn7X4 MhmjM5aoAEJqWKLnZ8Az FE5mDYKlZcg1AYF9ZAX9 KHSiYIZeP4MrZY4dRYTx zDEfOFp1k0sayMsoRAKz RQQ9v1qiEYpryvUoCH5k nl1wuUn9h6ipggPbETLq OEDgsYNBLRPbD3BjbFgt Hx5sdZi7nFoiYwahGHL7 Tbm0HW3jbk44jtl2dDyj HTXfbrduUtQ8CVxlRDEo zbwrOEv2ONzfCKPdwOQ0 NDSniQApJ1RaPSWbUZ3x bro4WQU8DMxwGRTeWbQ4 NDBcaGVhZGVyeTcyMFxm f534QSB4KeCwHH3sT8Oh f0P8tP2dwVUxBWAgdCGp OfNkSPEbbd2mcDWiECuk i1BxOQJ4ktE2jHYyqLEy POUsLN19Tfrjz6IuUwnz IKY2AODzstMkm9Evo2cn AkWazyOxD9prG8DwQQGa FVIrRFRxOaBmzjFro3Kg q5PolSKwgQc0q7itRVLr CORtlGfyr9sbVNJ2KROs G6F8hXJgh3ymSWevXMVk vVL3bbN0RZByyPOoS6Tt hH2rNQDxVR9wqtn9l0na GEG4OXpqMPRgKvB5kqM1 NDBcaGVhZGVyeTcyMFxm x312EAP8XlLoXHSlb9Bz G6AryAnxW06yoFfaC28l ZALrjQfwwC6xjBpsnY7t ZjBcZnMyNFxxbFxwbGFp uqyxRWjzobH7DQxfvlil LMAbYFxrF8nxEvPjJUPc kTrfZDfkw2DeVATeGCEq OorqepQ6TMQUj04iHVFr i1GlSKIvhX4nuMYoNDnx hmUhiHR8NRnjucTvLkMg jmHvUPHayC6xUFBcOK7b TCJccsXfiv2uyaPpZRUr BUBsO2QlpruvgLzkbtLj CVBxkj2jpgBeDSX3EJFW UP9JPQQvIFXyt12eZTAv bDwnjI5rzRDemdOvJQAk w0PvuM5wqLSNUZAeM3ru AD1xCJfxr6JuaRSefYGr mEW7XYAwi9AgStAxhlIk aJLbqAOaZ1FlcIcaE3dj FISlOHEzfuSqsIXmv8Dk XIMmsIZ0hUKsJV2HXxYS a67gGPYyXSRUseJuFPFd hXlfvJC4uqO9eS5mPvSH ZiBhcHBsaWNhYmxlLCBj x678sy1ilgC2MDBePIQp gdtln8EvDUWtCKFrhQ25 YNLiMXPuyl5nulsgiAVb vjMxE1Uhtpk5sO2hNVQv YWluXGYxXGZzMjJcbGFu ZzEwMzNcaGljaFxmMVxk BjLpRAMzBDupB7lkZdFj ZnMyMlxwYXJ9 [facility] Cancer HartmanMeasure post void residual 2021-12-23 17:15:00 Test Item Value Reference Range Interpretation Comments Total volume (test code = 2336) [facility] [id number] 17:15:00 Test Item Value Reference Range Interpretation Comments Total volume (test code = 2336) [address] [id number] 17:15:00 Test Item Value Reference Range Interpretation Comments Total volume (test code = 2336) 0ml [facility] urinalysis [id number] 17:14:00 Test Item Value Reference Range Interpretation Comments Color urine, POC (test Yellow code = 4623612) Clarity urine, POC Clear (test code = 7590575) Glucose urine, POC Negative Negative (test code = 5263528) Bilirubin urine, POC Negative Negative (test code = 7197991) Ketones urine, POC Negative Negative (test code = 0542877) Specific gravity urine, 1.005-1.030 POC (test code = 4477565) Blood urine, POC (test Negative Negative code = 7123948) pH urine, POC (test See_Comment [Automa davion message] code = 4385509) The system w hich generated this result transmitted ref erence range: 5.0, 5.5 , 6.0, 6.5, 7.0, 7.5, 8.0, 8.5. The refere nce range was not u sed to interpret this result as normal/abnor mal. Protein urine, POC Negative Negative (test code = 7469161) Urobilinogen urine, POC <2.0 See_Comment [Au tomated message] (test code = 6973023) The sy stem which generated this result transmitted ref erence range: <=2.0. T he reference range was not used to int erpret this result as normal/abnormal . Nitrite urine, POC Negative Negative (test code = 7847196) Leukocyte esterase Negative Negative urine, POC (test code = 2571985) [facility] urinalysis [id number] 17:14:00 Test Item Value Reference Range Interpretation Comments Color urine, POC (test Yellow code = 0440461) Clarity urine, POC Clear (test code = 1651233) Glucose urine, POC Negative Negative (test code = 9455633) Bilirubin urine, POC Negative Negative (test code = 8823300) Ketones urine, POC Negative Negative (test code = 9994923) Specific gravity urine, 1.005-1.030 POC (test code = 7245650) Blood urine, POC (test Negative Negative code = 4072999) pH urine, POC (test See_Comment [Automa advion message] code = 8747907) The system [employer] generated this result transmitted ref erence range: 5.0, 5.5 , 6.0, 6.5, 7.0, 7.5, 8.0, 8.5. The refere nce range was not u sed to interpret this result as normal/abnor mal. Protein urine, POC Negative Negative (test code = 1955811) Urobilinogen urine, POC <2.0 See_Comment [Au tomated message] (test code = 8562133) The sy stem which generated this result transmitted ref erence range: <=2.0. T he reference range was not used to int erpret this result as normal/abnormal . Nitrite urine, POC Negative Negative (test code = 1716644) Leukocyte esterase Negative Negative urine, POC (test code = 6941226) [facility] urinalysis [id number] 17:14:00 Test Item Value Reference Range Interpretation Comments Color urine, POC (test Yellow code = 4132372) Clarity urine, POC Clear (test code = 3762234) Glucose urine, POC Negative Negative (test code = 8023213) Bilirubin urine, POC Negative Negative (test code = 2920977) Ketones urine, POC Negative Negative (test code = 5715826) Specific gravity urine, 1.005-1.030 POC (test code = 9095485) Blood urine, POC (test Negative Negative code = 7384777) pH urine, POC (test See_Comment [Automa davion message] code = 4642050) The system [employer] generated this result transmitted ref erence range: 5.0, 5.5 , 6.0, 6.5, 7.0, 7.5, 8.0, 8.5. The refere nce range was not u sed to interpret this result as normal/abnor mal. Protein urine, POC Negative Negative (test code = 6223341) Urobilinogen urine, POC <2.0 See_Comment [Au tomated message] (test code = 6394561) The sy stem which generated this result transmitted ref erence range: <=2.0. T he reference range was not used to int erpret this result as normal/abnormal . Nitrite urine, POC Negative Negative (test code = 8612877) Leukocyte esterase Negative Negative urine, POC (test code = 5069710) [facility] MOLECULAR [id number] 22:32:52 Test Item Value Reference Range Interpretation Comments POCT Molecular FluA (test code = Negative Negative 26415-4) POCT Molecular FluB (test code = Negative Negative 30740-6) Lab Interpretation (test code = Normal 24977-6) [facility] MOLECULAR [id number] 22:26:40 Test Item Value Reference Range Interpretation Comments POCT Molecular Strep (test code = Negative Negative 34329-2) Lab Interpretation (test code = Normal 38331-7) [facility] [id number] 00:06:50 Test Item Value Reference Range Interpretation Comments Urine culture (test SEE COMMENT Bacteriu jacobo screen code = 1553748) negative. [facility] [id number] 00:06:50 Test Item Value Reference Range Interpretation Comments Urine culture (test SEE COMMENT Bacteriu jacobo screen code = 3006931) negative. [facility] [id number] 00:06:50 Test Item Value Reference Range Interpretation Comments Urine culture (test SEE COMMENT Bacteriu jacobo screen code = 2774065) [facility]Presence] in Respiratory specimen by ADELAIDA with probe [id number] 21:35:28 Test Item Value Reference Range Interpretation Comments SARS-CoV-2 (COVID-19) RNA Not detected Not-Detected [Presence] in Respiratory specimen by ADELAIDA with probe detection (test code = 75828-0) Whether patient is employed in a healthcare setting (test code = 68111-4) Whether the patient has symptoms related to condition of interest (test code = 93487-4) Patient was hospitalized because of this condition (test code = 43040-7) Whether the patient was admitted to intensive care unit (ICU) for condition of interest (test code = 56134-5) Whether patient resides in a congregate care setting (test code = 18676-4) Surgical pathology [id number] 20:28:41 Test Item Value Reference Range Interpretation Comments Case number (test code = [id number]) Surgical pathology See link below for report (test code = PDF Lab Report 2255) Result status (test code This is Final Report = [id number]) [facility] [id number] [facility] [id number] 20:28:41 Test Item Value Reference Range Interpretation Comments Case number (test code = [id number]) Surgical pathology See link below for report (test code = PDF Lab Report 2255) Result status (test code This is Final Report = [id number]) [facility] [id number] [facility] [id number] 20:28:41 Test Item Value Reference Range Interpretation Comments Case number (test code = [id number]) Surgical pathology See link below for report (test code = PDF Lab Report 2255) Result status (test code This is Final Report = [id number]) for [id number]2021-10-10 11:42:29 Test Item Value Reference Range Interpretation Comments Ventricular rate (test code = 253) Atrial rate (test code = 255) VT interval (test code = 266) QRSD interval [...] Ferrer MD ([id number]) on 08/24/2021 6:42:[address]2021-10-10 11:42:29 Test Item Value Reference Range Interpretation Comments Ventricular rate (test code = 253) Atrial rate (test code = 255) VT interval (test code = 266) QRSD interval [...] Ferrer MD ([id number]) on 08/24/2021 6:42:27 AM [facility] 12 [id number] 11:42:29 Test Item Value Reference Range Interpretation Comments Ventricular rate (test code = 253) Atrial rate (test code = 255) VT interval (test code = 266) QRSD interval [...] Ferrer MD ([id number]) on 08/24/2021 6:42:27 AM [facility]2021-10-08 18:03:01 Test Item Value Reference Range Interpretation Comments POC glucose (test code 175 mg/dL 65-99 H Opera tor Name: = [id number]) [facility] MedialabaDechandane ID: [id number] able: TM Notified feller hand Interpretation Abnormal (test code = 04520-1) [facility]2021-10-08 18:03:01 Test Item Value Reference Range Interpretation Comments POC glucose (test code 175 mg/dL 65-99 H Opera tor Name: = 92288-8) Selene WhoisoslabaDevice ID: [id number] able: TM Notified feller hand Interpretation Abnormal (test code = 72109-9) [facility]2021-10-08 18:03:01 Test Item Value Reference Range Interpretation Comments POC glucose (test code 175 mg/dL 65-99 H Opera tor Name: = 58027-9) [facility] WhoisoslabaDevice ID: [id number] able: TMH Notified feller hand Interpretation Abnormal (test code = 03993-9) [facility] and [id number] 10:26:00 Test Item Value Reference Range Interpretation Comments ABO grouping (test code = 883-9) A Rh type (test code = 66918-0) POS Antibody screen (gel) (test code = NEG 890-4) [facility] and [id number] 10:26:00 Test Item Value Reference Range Interpretation Comments ABO grouping (test code = 883-9) A Rh type (test code = 10105-8) POS Antibody screen (gel) (test code = NEG 890-4) [facility] and [id number] 10:26:00 Test Item Value Reference Range Interpretation Comments ABO grouping (test code = 883-9) A Rh type (test code = 44302-6) POS Antibody screen (gel) (test code = NEG 890-4) [facility] [id number] (COVID-19) RNA [Presence] in Respiratory specimen by ADELAIDA with probe [id number] 07:00:55 Test Item Value Reference Range Interpretation Comments SARS-CoV-2 (COVID-19) RNA Not detected Not-Detected [Presence] in Respiratory specimen by ADELAIDA with probe detection (test code = 59181-8) Whether patient is employed in a healthcare setting (test code = 41719-8) Whether the patient has symptoms related to condition of interest (test code = 11678-2) Patient was hospitalized because of this condition (test code = 44948-6) Whether the patient was admitted to intensive care unit (ICU) for condition of interest (test code = 58251-7) Whether patient resides in a congregate care setting (test code = 25793-0) SARS-CoV-2 (COVID-19) RNA [Presence] in Respiratory specimen by ADELAIDA with probe [id number] 14:44:09 Test Item Value Reference Range Interpretation Comments SARS-CoV-2 (COVID-19) RNA Not detected Not-Detected [Presence] in Respiratory specimen by ADELAIDA with probe detection (test code = 86032-7)
--- NOTE | 2022-07-29 21:46 | ER ---
Nurse's Notes [facility] Name: Adelita Lemons Age: 61 yrs Sex: Female : 1960 Arrival Date: 07/29/2022 Time: 16:54 Bed 10 Private MD: Diagnosis: Sciatica, right side Presentation: 07/29 18:17 Chief complaint: Patient states: CO of sharp, continuous lower back and right hip pain tp1 for the past 6 weeks. pain is rated 10/10. Pain radiated to right leg. Denies fall or injury. Coronavirus screen: Vaccine status: Patient reports being unvaccinated. Ebola Screen: Patient negative for fever greater than or equal to 101.5 degrees Fahrenheit, and additional compatible Ebola Virus Disease symptoms Patient denies exposure to infectious person. Patient denies travel to an Ebola-affected area in the 21 days before illness onset. Initial Sepsis Screen: Does the patient meet any 2 criteria? No. Patient's initial sepsis screen is negative. Does the patient have a suspected source of infection? No. Patient's initial sepsis screen is negative. Risk Assessment: Do you want to hurt yourself or someone else? Patient reports no desire to harm self or others. Onset of symptoms is unknown. 18:17 Method Of Arrival: Wheelchair tp1 18:17 Acuity: CRISTAL 4 tp1 Triage Assessment: 18:21 General: Appears in no apparent distress. uncomfortable, Behavior is calm, cooperative. tp1 Pain: Complains of pain in lower back and right hip Pain radiates to right leg Pain currently is 10 out of 10 on a pain scale. Quality of pain is described as sharp, Pain began 6 weeks. Neuro: Level of Consciousness is awake, alert, obeys commands, Oriented to person, place, time, situation, Reports tingling in right leg . Cardiovascular: Patient's skin is warm and dry. Respiratory: Airway is patent Respiratory effort is even, unlabored. Historical: - Allergies: 18:21 Amoxicillin; tp1 18:21 Bactrim; tp1 18:21 morphine-vomiting; tp1 - PMHx: 18:21 chronic back pain; GERD; Hypertension; tp1 - PSHx: 18:21 Appendectomy; Cholecystectomy; hysterectomy; L knee replacement; R hip replacement; tp1 right rotator cuff; Fibrous mass removed from abd; bowel resection; - Immunization history:: Client reports having NOT received the Covid vaccine. - Social history:: Smoking status: Patient denies any tobacco usage or history of. Screenin:48 Abuse screen: Denies threats or abuse. Nutritional screening: No deficits noted. bm7 Tuberculosis screening: No symptoms or risk factors identified. Fall Risk None identified. Assessment: 22:48 Reassessment: No changes from previously documented assessment. Patient and/or family bm7 updated on plan of care and expected duration. Pain level reassessed. Patient is alert, oriented x 3, equal unlabored respirations, skin warm/dry/pink. Vital Signs: 18:17 BP 152 / 96; Pulse 96; Resp 16; Temp 98.8(TE); Pulse Ox 99% on R/A; Weight 97.07 kg; tp1 Height 6 ft. (182.88 cm); Pain 10/10; 21:25 BP 165 / 90; Pulse 81; Resp 16; Pulse Ox 99% on R/A; Pain 10/10; bm7 22:48 BP 148 / 80; Pulse 76; Resp 16; Pulse Ox 100% on R/A; Pain 5/10; bm7 18:17 Body Mass Index 29.02 (97.07 kg, 182.88 cm) tp1 ED Course: 16:54 Patient arrived in ED. rg4 18:20 Triage completed. tp1 18:21 Arm band placed on. tp1 20:11 Nestor Valerio MD is Attending Physician. kdr 20:54 Opal Quinn, DISHA is Primary Nurse. bm7 22:48 Patient has correct armband on for positive identification. Bed in low position. Side bm7 rails up X2. Adult w/ patient. Client placed on continuous cardiac and pulse oximetry monitoring. NIBP monitoring applied. Warm blanket given. 22:48 No provider procedures requiring assistance completed. Patient did not have IV access bm7 during this emergency room visit. Administered Medications: 21:24 Drug: Phenergan (promethazine) 25 mg Route: IM; Site: left gluteus; bm7 22:48 Follow up: Response: No adverse reaction bm7 21:24 Drug: Pepcid (famotidine) 20 mg Route: PO; bm7 22:48 Follow up: Response: No adverse reaction bm7 21:25 Drug: Dilaudid (HYDROmorphone) 2 mg Route: IM; Site: right gluteus; 7 22:48 Follow up: Response: Pain is unchanged, physician notified bm7 22:48 Drug: Dilaudid (HYDROmorphone) 1 mg Route: IM; Site: right deltoid; bm7 22:48 Follow up: Response: No adverse reaction bm7 Medication: 22:48 VIS not applicable for this client. bm7 Outcome: 21:45 Discharge ordered by . kdr 22:48 Discharged to home via wheelchair, with friend. bm7 22:48 Condition: good 22:48 Discharge instructions given to patient, family, Instructed on discharge instructions, follow up and referral plans. Demonstrated understanding of instructions, follow-up care. 22:50 Patient left the ED. 7 Signatures: Nestor Valerio MD MD [facility] Gladis Werner rg4 Opal Quinn RN RN bm7 Sis Ryan RN RN tp1 Corrections: (The following items were deleted from the chart) 18:20 18:17 Acuity: CRISTAL 3 tp1 tp1
--- NOTE | 2022-07-29 21:46 | EDPHYS ---
Physician Documentation [facility] Name: Adelita Lemons Age: 61 yrs Sex: Female : 1960 Arrival Date: 07/29/2022 Time: 16:54 Bed 10 Private MD: ED Physician Nestor Valerio HPI: 07/29 20:53 This 61 yrs old Female presents to ER via Wheelchair with complaints of Sciatica pain. kdr 20:53 Patient complains of right hip pain that radiates down her right leg. This is been kdr ongoing for a number of weeks if not months. More so focally though she complains of worsening pain over the last 6 weeks she has had several ED visits for the same. She has a well-known documented sciatic nerve issue. She states that she had a repeat MRI on Wednesday and has an appointment with Dr. Samuel carbone for pain management tomorrow. She does not believe that there is anything different about her symptoms today as on prior visits only with the severity is different. She denies any issue with control of bowel or bladder. She also denies numbness in her perineum.. Onset: The symptoms/episode began/occurred at an unknown time. Severity of symptoms: At their worst the symptoms were moderate severe just prior to arrival, in the emergency department the symptoms are unchanged. The patient has experienced similar episodes in the past, chronically. The patient has not recently seen a physician. Historical: - Allergies: 18:21 Amoxicillin; tp1 18:21 Bactrim; tp1 18:21 morphine-vomiting; tp1 - PMHx: 18:21 chronic back pain; GERD; Hypertension; tp1 - PSHx: 18:21 Appendectomy; Cholecystectomy; hysterectomy; L knee replacement; R hip replacement; tp1 right rotator cuff; Fibrous mass removed from abd; bowel resection; - Immunization history:: Client reports having NOT received the Covid vaccine. - Social history:: Smoking status: Patient denies any tobacco usage or history of. ROS: 20:53 Constitutional: Negative for fever, chills, and weight loss, Eyes: Negative for injury, kdr pain, redness, and discharge, ENT: Negative for injury, pain, and discharge, Neck: Negative for injury, pain, and swelling, Cardiovascular: Negative for chest pain, palpitations, and edema, Respiratory: Negative for shortness of breath, cough, wheezing, and pleuritic chest pain, Abdomen/GI: Negative for abdominal pain, nausea, vomiting, diarrhea, and constipation, Back: Negative for injury and pain, : Negative for injury, bleeding, discharge, and swelling, MS/Extremity: Negative for injury and deformity, Skin: Negative for injury, rash, and discoloration, Psych: Negative for depression, anxiety, suicide ideation, homicidal ideation, and hallucinations, Allergy/Immunology: Negative for hives, rash, and allergies, Endocrine: Negative for neck swelling, polydipsia, polyuria, polyphagia, and marked weight changes, Hematologic/Lymphatic: Negative for swollen nodes, abnormal bleeding, and unusual bruising. 20:53 Neuro: Positive for Pain that radiates from her hip down to her toes on the right side. Exam: 20:53 Constitutional: This is a well developed, well nourished patient who is awake, alert, kdr and in no acute distress. Head/Face: Normocephalic, atraumatic. Eyes: Pupils equal round and reactive to light, extra-ocular motions intact. Lids and lashes normal. Conjunctiva and sclera are non-icteric and not injected. Cornea within normal limits. Periorbital areas with no swelling, redness, or edema. Neck: Trachea midline, no thyromegaly or masses palpated, and no cervical lymphadenopathy. Supple, full range of motion without nuchal rigidity, or vertebral point tenderness. No Meningismus. Chest/axilla: Normal chest wall appearance and motion. Nontender with no deformity. No lesions are appreciated. Cardiovascular: Regular rate and rhythm with a normal S1 and S2. No gallops, murmurs, or rubs. Normal PMI, no JVD. No pulse deficits. Respiratory: Lungs have equal breath sounds bilaterally, clear to auscultation and percussion. No rales, rhonchi or wheezes noted. No increased work of breathing, no retractions or nasal flaring. Abdomen/GI: Soft, non-tender, with normal bowel sounds. No distension or tympany. No guarding or rebound. No evidence of tenderness throughout. Skin: Warm, dry with normal turgor. Normal color with no rashes, no lesions, and no evidence of cellulitis. MS/ Extremity: Pulses equal, no cyanosis. Neurovascular intact. Full, normal range of motion. Neuro: Awake and alert, GCS 15, oriented to person, place, time, and situation. Cranial nerves II-XII grossly intact. Motor strength 5/5 in all extremities. Sensory grossly intact. Cerebellar exam normal. Normal gait. Psych: Awake, alert, with orientation to person, place and time. Behavior, mood, and affect are within normal limits. Vital Signs: 18:17 BP 152 / 96; Pulse 96; Resp 16; Temp 98.8(TE); Pulse Ox 99% on R/A; Weight 97.07 kg; tp1 Height 6 ft. (182.88 cm); Pain 10/10; 21:25 BP 165 / 90; Pulse 81; Resp 16; Pulse Ox 99% on R/A; Pain 10/10; bm7 22:48 BP 148 / 80; Pulse 76; Resp 16; Pulse Ox 100% on R/A; Pain 5/10; bm7 18:17 Body Mass Index 29.02 (97.07 kg, 182.88 cm) tp1 MDM: 20:53 Data reviewed: vital signs, nurses notes, lab test result(s), radiologic studies. kdr Counseling: I had a detailed discussion with the patient and/or guardian regarding: the historical points, exam findings, and any diagnostic results supporting the discharge/admit diagnosis, lab results, radiology results. 21:45 Patient medically screened. kdr Administered Medications: 21:24 Drug: Phenergan (promethazine) 25 mg Route: IM; Site: left gluteus; bm7 22:48 Follow up: Response: No adverse reaction bm7 21:24 Drug: Pepcid (famotidine) 20 mg Route: PO; bm7 22:48 Follow up: Response: No adverse reaction bm7 21:25 Drug: Dilaudid (HYDROmorphone) 2 mg Route: IM; Site: right gluteus; bm7 22:48 Follow up: Response: Pain is unchanged, physician notified bm7 22:48 Drug: Dilaudid (HYDROmorphone) 1 mg Route: IM; Site: right deltoid; bm7 22:48 Follow up: Response: No adverse reaction bm7 Disposition Summary: 07/29/22 21:45 Discharge Ordered Location: Home kdr Problem: an ongoing problem kdr Symptoms: have improved kdr Condition: Stable kdr Diagnosis - Sciatica, right side kdr Followup: kdr - With: Private Physician - When: 2 - 3 days - Reason: If symptoms return, Further diagnostic work-up, Recheck today's complaints, Continuance of care, Re-evaluation by your physician Discharge Instructions: - Discharge Summary Sheet kdr - Sciatica kdr - Radicular Pain kdr Forms: - Medication Reconciliation Form kdr - Thank You Letter kdr Signatures: Nestor Valerio MD MD kdr Opal Quinn, RN RN bm7 Sis Ryan RN RN tp1
[2022-07-29] MEDS ORDERED: HYDROMORPHONE HCL 1 MG/ML INJ ONE (22:51)
[2022-07-30 21:37] VITALS: TEMP 98.8
[2022-07-30 22:32] VITALS: BP 148/80; O2SAT 100
== END 2022-07-29 22:50 | disposition home or self-care (01) ==
LOC: ER 16:51
DX: M54.31 Sciatica, right side (principal)
CPT/HCPCS: 96372; 99283; J1170

== ENCOUNTER 2022-10-01 23:59 | Emergency (ER) | payer OTHER ==
--- OUTSIDE RECORDS SUMMARY | 2022-10-02 00:01 | XMS REPORT | Clinical Summary ---
:1960 Author Organization [facility] Address [address] [place] [address] Care Team Providers Name Role Phone Madison Manning Unavailable Allergies Not on File Medications Not on file Active Problems Not on file Encounters Date Type Specialty Care Team Description 05/25/2022 Ancillary Procedure Radiology Cancer 03/30/2022 Ancillary Procedure Radiology Cancer 03/30/2022 Ancillary Procedure Radiology Cancer 03/25/2022 Lab Requisition Liban Javed MD Divatia, Mukul K, MD after 10/02/2021 Social History Tobacco Use Types Packs/Day Years Used Date Smoking Tobacco: Never Assessed Sex Assigned at Date Recorded Not on file Job Start Date Occupation Industry Not on file Not on file Not on file Last Filed Vital Signs Not on file Plan of Treatment Not on file Procedures Procedure Name Priority Date/Time Associated Diagnosis Comme nts OSI CT ABDOMEN AND Routine 12/29/2021 11:35 PM Cancer Re sults for this PELVIS TURF MANAGER procedure are i n the results section. after 10/02/[address] Abdomen and Pelvis (12/29/2021 11:35 PM TURF MANAGER) Specimen (Source) Anatomical Location Collection Method / Collectio n Time Received Time / Laterality Volume Narrative Systemgenerated, Documentation - 022 11:35 PM CDT Study acquired at another institution. For comparison only. No MD Phillips originated interpretation requested or a vailable. Candida Fajardo MD IMG OUTSIDE IMAGE ORDERABLES after 10/02/2021 Insurance Payer Benefit Plan / Subscriber ID Effective Dates Phone Addre ss Type Group [employer] MANAGED A[employer] O [id number] 2014-Present [address] [id number] [facility] [place] [address] Care Teams [address] [address] [address] Relationship Specialty Start Date End Date Madison Manning PCP - External Follow Up A 03/19/22
--- OUTSIDE RECORDS SUMMARY | 2022-10-02 00:06 | XMS REPORT | Continuity of Care Document ---
:1960 Author Organization [facility] t Address [address] [place] [address] Care Team Providers Name Role Phone Carey Koo MD Primary Care Physician SYSTEM, PROVIDER NOT IN Attending Clinician Unavailable LISSY WILSON Attending Clinician Unavailable MARIAN CUTLER Attending Clinician Unavailable Isidro Mitchell MD Attending Clinician Mellissa GAUTHIER, Ann Attending Clinician Unavailable Joie Gonzalez MD Attending Clinician Sandor [employer]URE ASSEMBLER, Alfred Espinoza Attending Clinician [phone] Nicko Palacios MD Attending Clinician Shelly Ayala RN Attending Clinician Unavailable Liban Javed MD Attending Clinician eJd Reardon MD Attending Clinician Unavailable _TNC_Gracie_S Attending Clinician Unavailable Renu ADAM, Candelaria Love Attending Clinician [phone] Trudy Wilkerson RN Attending Clinician Unavailable SLY IFNLEY III Attending Clinician Unavailable King COTY MD, James C Attending Clinician Mary Mehta Attending Clinician MARY SOSA Attending Clinician Unavailable Simone ADAM, Sommer Donovan Attending Clinician [phone] Edmund Galindo NP, Mel Styles Attending Clinician Staci Espinal MA Attending Clinician Unavailable MD CANDELARIA SEARS Attending Clinician Unavailable Irene Rose MA Attending Clinician Unavailable Scotty ADAM, Candida Attending Clinician Adam ADAM, Rm Hyde Attending Clinician Brian ADAM, Jhoan Santos Attending Clinician [phone] Russell ADAM, James Cruz Attending Clinician MD CANDIDA OLIVAREZ Attending Clinician Unavailable Juve GAUTHIER, Kaylah Attending Clinician Unavailable CHU MENA Attending Clinician Unavailable MD CHU MENA Attending Clinician Unavailable JACQUI MENESES Attending Clinician Unavailable Pcp, Patient Does Not Have A Attending Clinician [phone] Lab, Adc Fam Pob I Attending Clinician Unavailable Doctor Unassigned, [place] Attending Clinician Unavailable BROWN DUNLAP Attending Clinician Unavailable KORY CERVANTES Attending Clinician Unavailable NEHEMIAS SANDOVAL Attending Clinician Unavailable CAREY KOO M.D. Attending Clinician Unavailable _[facility]S Admitting Clinician Unavailable CANDELARIA SEARS Admitting Clinician Unavailable EDOUARD AVILA Admitting Clinician Unavailable CANDIDA OLIVAREZ Admitting Clinician Unavailable MD CANDIDA OLIVAREZ Admitting Clinician Unavailable CHU MENA Admitting Clinician Unavailable EDOUARD FREY Admitting Clinician Unavailable KORY CERVANTES Admitting Clinician Unavailable Payers Payer Name Policy Type Policy Number Effective Date Expiration Date S ourjesusita AETNA CHOICE POS [id number] 2013 00:00:00 II AETNA (POS) [id number] 2013 00:00:00 Problems Condition Condition Condition Status Onset Resolution Last Treating Co mments Source Name Details Category Date Date Treatment Clinician Date Esophageal Esophageal Disease Active M ethodi dysmotilit dysmotilit 06-03 st y y 00:00: Hospita 00 l Gastric Gastric Disease Active Methodi regurgitat regurgitat 06-03 st ion ion 00:00: Hospita 00 l Heartburn Heartburn Disease Active Met hodi 06-03 st 00:00: Hospita 00 l Hiatal Hiatal Disease Active Methodi hernia hernia 06-03 st 00:00: Hospita 00 l Weight Weight Disease Active Methodi loss, loss, 06-03 st unintentio unintentio 00:00: Ho spita nal nal 00 l Cervical Cervical Disease Active Metho di dysphagia dysphagia 06-03 st 00:00: Hospita 00 l Belching Belching Disease Active Metho di 06-03 st 00:00: Hospita 00 l Prolapse Prolapse Disease Active 2020-11 Overview: Me thodi of vaginal of vaginal 1-[address] vault vault 00:00: g of this Hospita after after 00 note l hysterecto hysterecto might be my my different from the original. Added automatic ally from request for surgery [id number] Small Small Disease Active 2020-11 Methodi bowel bowel 0-05 st obstructio obstructio 00:00: Ho spita n n 00 l Iron Iron Disease Active Methodi deficiency deficiency 1-06 st anemia anemia 00:00: Hospita secondary secondary 00 l to to inadequate inadequate dietary dietary iron iron intake intake Other Other Disease Active 2019-11 Methodi idiopathic idiopathic [address] scoliosis, scoliosis, 00:00: Ho spita cervicotho cervicotho 00 l racic racic region region History of History of Disease Active 2019-11 M ethodi total total 1 st right hip right hip 00:00: [facility] replacemen replacemen 00 l t t History of History of Disease Active 2019-11 M ethodi total left total left 1 st knee knee 00:00: Hospita replacemen replacemen 00 [...] OA OA Disease Active Methodi (osteoarth (osteoarth 6-11 st ritis) of ritis) of 00:00: Hosp [...] rs active active ity of problems problems [place] [facility] 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 st is is Hospita l Allergies, Adverse Reactions, Alerts Allergy Allergy Status Severity Reaction(s) Onset Inactive Treating Comm ents Source Name Type Date Date Clinician Amoxicil Propensi Active Unknown - Uni vers maria eugenia ty to See comments 1-13 ity of adverse 00:00: [place] reaction 00 Medical s Branch Sulfamet Propensi Active Other - See U nivers hoxazole ty to comments 1-13 ity of -Trimeth adverse 00:00: [place] oprim reaction 00 Medical s Branch Morphine Propensi Active Nausea Univer s ty to and/or 1-13 ity of adverse Vomiting 00:00: [place] reaction 00 Medical s Branch AMOXICIL DRUG Active High Unknown-Cmnt Un sugey MARIA EUGENIA INGREDI 1-13 ity [...] Active Confusion Met hodi hoxazole ty to 5 , st -Trimeth adverse 00:00: dizziness [facility] Natural father Heart failure [facility] Grandchild Crohn's disease [facility] Natural mother [facility]'s [facility] Natural mother Dementia [facility] Natural sister [facility] Family member Celiac disease [facility] Family member Colon cancer [facility] Family member Esophageal cancer [facility] Family member Pancreatic cancer [facility] Family member Stomach cancer [facility] Social History Social Habit Start Date Stop Date Quantity Comments Source Exposure to Not sure University of SARS-CoV-2 [place] [facility] (event) Branch History [facility] Health Alcohol Std Drinks History [facility] Alcohol Binge History [facility] Alcohol Comment Tobacco use and 2022-09-09 2022-09-09 Smokeless tobacco Me thodist exposure 00:00:00 00:00:00 non-user Hospital Alcohol intake 2022-09-09 2022-09-09 Current [facility] 00:00:00 00:00:00 non-drinker of Hospital alcohol (finding) History SDIN 2021-09-04 2021-09-04 1 [facility] Alcohol Frequency 00:00:00 00:00:00 Sex Assigned [facility] [birth year] [facility] 00:00:00 00:00:00 [place] [facility] Smoking Status Start Date Stop Date Source Unknown if ever smoked [facility] Never smoked tobacco [facility] Medications Ordered Filled Start Stop Current Ordering Indication Dosage Frequency Signature Comments Components Source Medication Medication Date Date Medication? Clinician (SIG) Name Name docusate 2021-11 Yes 3{capsu QD Take 3 Meth mirela sodium 0-26 le} capsules st (STOOL 12:13: by mouth Hospita SOFTENER 23 every l ORAL) evening. multivitami 2021-11 Yes 1{tbl} QD Take 1 Me thodi n with 0-26 tablet by minerals 12:13: mouth Hospita tablet 23 daily. l glucosamine 2021-11 Yes 2{tbl} QD Take 2 Me thodi /chondroiti 0-26 tablets by n/C/rosaura 12:13: mouth Hospita (GLUCOSAM 23 daily. l BLANCA DIP-CHONDRO IT-C-MN ORAL) cholecalcif 2021-11 Yes 2{tbl} QD Take 2 Me thodi latha, 0-26 tablets by vitamin D3, 12:13: mouth Hospi ta (VITAMIN D3 23 daily. l ORAL) 2,000 IU qd ferrous 2021-11 Yes 1{tbl} Q.5D Take 1 Method i sulfate 0-26 tablet by (IRON ORAL) 12:13: mouth 2 Hos bessy 23 (two) l times a day. polyethylen 2021-11 Yes 17g Q24H Take 17 g M ethodi e glycol 0-[address] (MIRALAX) 12:13: daily as [facility] 17 gram 23 needed. l packet hydromorPHO Yes 4mg Q.[id number] Take 1 Methodi NE 9-22 [id number] tablet (4 st (DILAUDID) 00:00: 3D mg total) Ho spita 4 MG tablet 00 by mouth 3 l (three) times a day. Max Daily Amount: 12 mg docusate Yes 3{capsu QD Take 3 Meth mirela sodium 8-10 le} capsules (STOOL 14:15: by mouth Hospita SOFTENER 11 every l ORAL) evening. multivitami Yes 1{tbl} QD Take 1 Me thodi n with 8-10 tablet by minerals 14:15: mouth Hospita tablet 11 daily. l glucosamine Yes 2{tbl} QD Take 2 Me thodi /chondroiti 8-10 tablets by n/C/rosaura 14:15: mouth Hospita (GLUCOSAM 11 daily. l BLANCA DIP-CHONDRO IT-C-MN ORAL) cholecalcif Yes 2{tbl} QD Take 2 Me thodi latha, 8-10 tablets by vitamin D3, 14:15: mouth Hospi ta (VITAMIN D3 11 daily. l ORAL) 2,000 IU qd ferrous 2022-0 Yes 1{tbl} Q.5D Take 1 Method i sulfate 8-[address] (IRON ORAL) 14:15: mouth 2 Hos bessy 11 (two) l times a day. polyethylen 0 Yes 17g Q24H Take 17 g M [...] daily. l BLANCA DIP-CHONDRO IT-C-MN ORAL) cholecalcif Yes 2{tbl} QD Take 2 Me thodi latha, 8-[address] vitamin D3, 14:15: mouth Hospi ta (VITAMIN D3 11 daily. l ORAL) 2,000 IU qd ferrous Yes 1{tbl} Q.5D Take 1 Method i sulfate 8-[address] (IRON ORAL) 14:15: mouth 2 Hos bessy 11 (two) l times a day. polyethylen 0 Yes 17g Q24H Take 17 g M [...] mouth Hospita tablet 11 daily. l glucosamine 0 Yes 2{tbl} QD Take 2 Me thodi /chondroiti 8-[address] n/C/rosaura 14:15: mouth Hospita (GLUCOSAM 11 daily. l BLANCA DIP-CHONDRO IT-C-MN ORAL) cholecalcif 2021-0 Yes 2{tbl} QD Take 2 Me thodi latha, 8-[address] vitamin D3, 14:15: mouth Hospi ta (VITAMIN D3 11 daily. l ORAL) 2,000 IU qd ferrous 2-0 Yes 1{tbl} Q.5D Take 1 Method i sulfate 8-[address] (IRON ORAL) 14:15: mouth 2 Hos bessy 11 (two) l times a day. polyethylen 2-0 Yes 17g Q24H Take 17 g M ethodi e glycol 8-[address] (MIRALAX) 14:15: daily as [facility] 17 gram 11 needed. l packet diclofenac 2-0 Yes 75mg Q.5D Take 75 mg M ethodi (VOLTAREN) 7-[address] 75 MG EC 00:00: (two) Hospita tablet 00 times a l day. diclofenac 2022-0 Yes 75mg Q.5D Take 75 mg M ethodi (VOLTAREN) 7-[address] 75 MG EC 00:00: (two) Hospita tablet 00 times a l day. diclofenac 2022-0 Yes 75mg Q.5D Take 75 mg M ethodi (VOLTAREN) 7-[address] 75 MG EC 00:00: (two) Hospita tablet 00 times a l day. diclofenac 2022-0 Yes 75mg Q.5D Take 75 mg M ethodi (VOLTAREN) 7-[address] 75 MG EC 00:00: (two) Hospita tablet 00 times a l day. benzonatate 2-0 Yes [id number] 100mg Take 1 Univers 100 mg 1-13 capsule by ity of capsule 00:00: mouth [place] 00 every 8 Medical (eight) Branch hours as needed for Cough. bromphenira 2-0 Yes [id number] 5mL Take 5 mL Univers mine-pseudo 1-13 by mouth 4 it y of ephedrine-D 00:00: ([place] (BROMFED 00 times Medical DM) 2-30-10 daily as Bran ch mg/5 mL needed for syrup Congestion /Allergies . benzonatate 2022-0 Yes [id number] 100mg Take 1 Univers 100 mg 1-13 capsule by ity of capsule 00:00: mouth [place] 00 every 8 Medical (eight) Branch hours as needed for Cough. bromphenira Yes [id number] 5mL Take 5 mL Univers mine-pseudo 1-13 by mouth 4 it y of ephedrine-D 00:00: (four) Aleksandra ramirez M (BROMFED 00 times Medical DM) 2-30-10 daily as Bran ch mg/5 mL needed for syrup Congestion /Allergies . gabapentin 2020-11 Yes 1{capsu Q.[id number] Take 1 Methodi (NEURONTIN) 2-14 le} [id number] capsule by st 400 mg 00:00: 3D mouth 3 Hospita capsule 00 (three) l times a day. gabapentin 2020-11 Yes 1{capsu Q.[id number] Take 1 Method[facility] (NEURONTIN) 2-14 le} [id number] capsule by st 400 mg 00:00: 3D mouth 3 Hospita capsule 00 (three) l times a day. gabapentin 2020-11 Yes 1{capsu Q.[id number] Take 1 Methodi (NEURONTIN) 2-14 le} [id number] capsule by st 400 mg 00:00: 3D mouth 3 Hospita capsule 00 (three) l times a day. gabapentin 2020-11 Yes 400mg Q.[id number] Take 1 [facility] (NEURONTIN) 2-[id number] 400 mg 00:00: 3D mouth 3 Hospita capsule 00 (three) l times a day. No known 2020-11 No No known [facility] medications 0-27 medication He alth 20:42: s 35 No known 2020-11 No No known [facility] medications 0-27 medication He alth 20:42: s 35 gabapentin 2020-11- No 300mg Q.[id number] Take 300 Methodi (NEURONTIN) 0-15 10-[id number] 300 mg 13:28: 00:00 3D mouth 3 Hospita capsule 05 :00 (three) l times a day. gabapentin 2020-11- No 300mg Q.[id number] Take 300 Methodi (NEURONTIN) 0-15 10-[id number] 300 mg 13:28: 00:00 3D mouth 3 Hospita capsule 05 :00 (three) l times a day. gabapentin 2020-11 No 300mg Q.[id number] Take 300 [facility] (NEURONTIN) 0-15 10-[id number] 300 mg 13:28: 00:00 [...] day for 30 days. ibuprofen 2020-11 No [id number] 600mg Q6H Take 1 Methodi (ADVIL) 600 0-01 10-[address] MG tablet 00:00: 00:00 (600 mg [facility] 00 :00 total) by l mouth every 6 (six) hours as needed for mild pain (postopera tive pain) for up to 30 days. ibuprofen 2020-11 No [id number] 600mg Q6H Take 1 [facility] (ADVIL) 600 0-01 10-[address] MG tablet 00:00: 00:00 (600 mg [facility] 00 :00 total) by l mouth every 6 (six) hours as needed for mild pain (postopera tive pain) for up to 30 days. ibuprofen 2020-11 No [id number] 600mg Q6H Take 1 [facility] (ADVIL) 600 0-01 10-[address] MG tablet 00:00: 00:00 (600 mg [facility] 00 :00 total) by l mouth every 6 (six) hours as needed for mild pain (postopera tive pain) for up to 30 days. estradioL Yes Follow Method i (Estrace) [address] 0.01 % (0.1 00:00: instructio Hospita mg/gram) 00 ns. Insert l vaginal one finger cream tip unit into vagina nightly x 2wks; after two weeks use 3x weekly at night estradioL Yes Follow Method i (Estrace) [address] 0.01 % (0.1 00:00: instructio Hospita mg/gram) 00 ns. Insert l vaginal one finger cream tip unit into vagina nightly x 2wks; after two weeks use 3x weekly at night estradioL Yes Follow Method i (Estrace) [address] 0.01 % (0.1 00:00: instructio Hospita mg/gram) 00 ns. Insert l vaginal one finger cream tip unit into vagina nightly x 2wks; after two weeks use 3x weekly at night estradioL Yes Follow Method i (Estrace) 8- [...] thodi -acetaminop 1-[address] hen ([employer]) 00:00: mouth Hospi ta 7.5-325 mg 00 every 8 l per tablet (eight) hours as needed. HYDROcodone 2019-11 Yes 1{tbl} Q8H Take 1 Me thodi -acetaminop 1-[address] hen ([employer]) 00:00: mouth Hospi ta 7.5-325 mg 00 every 8 l per tablet (eight) hours as needed. HYDROcodone 2019-11 Yes 1{tbl} Q8H Take 1 Me thodi -acetaminop 1-[address] hen ([employer]) 00:00: mouth Hospi ta 7.5-325 mg 00 every 8 l per tablet (eight) hours as needed. HYDROcodone 2019-11 Yes 1{tbl} Q8H Take 1 Me thodi -acetaminop 1-[address] hen ([employer]) 00:00: mouth Hospi ta 7.5-325 mg 00 every 8 l per tablet (eight) hours as needed. promethazin 2019-0 Yes 1-2 tabs Me thodi e 4-01 [...] Systolic blood 2021-11-27 157 mm[Hg] University of pressure 22:07:00 [facility] Diastolic blood 2021-11-27 92 mm[Hg] University o f pressure 22:07:00 [facility] Heart rate 2021-11-27 117 /min University 22:07:00 [facility] Body temperature 2021-11-27 39.67 Claudine last dose of [facility] 22:07:00 Motrin this AM [facility] Respiratory rate 2021-11-27 16 /min [facility] 22:07:00 [facility] Body height 2021-11-27 190.5 cm [facility] 22:07:00 [facility] Body weight 2021-11-27 94.518 kg [facility] 22:07:00 [facility] BMI 2021-11-27 26.05 kg/m2 [facility] 22:07:00 [facility] Oxygen saturation 2021-11-27 97 /min [facility] in Arterial blood 22:07:00 [facility] by Pulse oximetry Sigel Systolic blood 2021-09-04 147 mm[Hg] [facility] pressure 19:12:00 Diastolic blood 2021-09-04 72 mm[Hg] [facility] pressure 19:12:00 Heart rate 2021-09-04 94 /min [facility] 19:12:00 Body temperature 2021-09-04 36.5 Claudine [facility] 19:12:00 Body height 2021-09-04 182.9 cm [facility] 19:12:00 Body weight 2021-09-04 92.987 kg [facility] 19:12:00 BMI 2021-09-04 27.80 kg/m2 [facility] 19:12:00 Heart rate 2022-09-09 94 /min [facility] 19:45:00 [facility] Respiratory rate 2022-09-09 16 /min [facility] 19:45:00 Hospital Oxygen saturation 2022-09-09 91 /min [facility] in Arterial blood 19:45:00 Hospital by Pulse oximetry Systolic blood 2022-09-09 153 mm[Hg] [facility] pressure 19:30:00 Hospital Diastolic blood 2022-09-09 72 mm[Hg] [facility] pressure 19:30:00 Hospital Body temperature 2022-09-09 36.5 Claudine [facility] 18:26:00 Hospital Body height 2022-09-09 188 cm [facility] 17:17:00 Hospital Body weight 2022-09-09 95.255 kg [facility] 17:17:00 Hospital BMI 2022-09-09 26.96 kg/m2 [facility] 17:17:00 Hospital Systolic blood 2022-06-24 135 mm[Hg] [facility] pressure 19:11:00 Hospital Diastolic blood 2022-06-24 72 mm[Hg] [facility] pressure 19:11:00 Hospital Heart rate 2022-06-24 88 /min [facility] 19:11: Hospital Respiratory rate 2022-06-24 18 /min [facility] 19:11:00 Hospital Body height 2022-06-24 182.9 cm [facility] 19:11:00 Hospital Body weight 2022-06-24 97.07 kg [facility] 19:11: Hospital BMI 2022-06-24 29.02 kg/m2 [facility] 19:11:00 Hospital Oxygen saturation 2022-06-24 93 /min [facility] in Arterial blood 19:11:00 Hospital by Pulse oximetry Body temperature 2021-11-03 36.44 Claudine [facility] 16:20:00 Hospital BP Systolic 2019-11-01 144 mm[Hg] [...] O2 SAT 2019-10-18 98 % Source: RA MD Physicians 10:58:00 Procedures Procedure Date / Time Performing Clinician Source Performed IR INJECTION SI JOINT 2022-09-09 18:16:06 MitchellIsidro elias [facility] ARTHOGRAM W WO IMAGING MRI SPINE EXTERNAL STUDY 2022-07-27 16:53:00 Isidro Mitchell [facility] OSI CT ABDOMEN AND PELVIS 2021-12-30 05:35:00 [facility] CT ABD/PELVIC EXTERNAL 2021-12-29 19:17:03 Nicko Palacios [facility] STUDY POC URINALYSIS DIPSTICK 2021-12-23 17:14:00 [facility]ID RESIDUAL 2021-12-23 16:45:00 [facility]U 2021-11-27 22:21:00 Mary Sosa [facility] POCT MOLECULAR STREP 2021-11-27 22:18:00 [place] [facility] AR AN ELECTIVE 2021-11-03 13:46:00 Radha Phillips Ho spital ENDOTRACHEAL AIRWAY COLPORRHAPHY, COMBINED 2021-11-03 13:29:00 Candelaria Sears [facility] ANTEROPOSTERIOR Love URINE CULTURE 2021-10-29 23:46:00 [facility] COMPREHENSIVE METABOLIC 2021-10-29 22:55:00 [facility] [place] PANEL HC COMPLETE BLD COUNT 2021-10-29 22:55:[address] [facility] W/AUTO DIFF HEMOGLOBIN A1C 2021-10-29 22:55:00 [facility] ESTIMATED GFR 2021-10-29 22:55:00 [facility] URINALYSIS SCREEN AND 2021-10-29 22:50:00 [facility] Mel Stephani [facility] MICROSCOPY, WITH REFLEX TO CULTURE COVID-19 QUALITATIVE 2021-10-29 22:01:00 Candelaria Sears [facility] RT-PCR Love MAGNESIUM LEVEL 2021-08-29 09:56:00 Jhoan Torres spital Danielle PHOSPHORUS LEVEL 2021-08-29 09:56:00 Jhoan Torres H ospital Danielle CBC HEMOGRAM 2021-08-29 09:56:00 Jhoan Torres spital Danielle BASIC METABOLIC PANEL 2021-08-29 09:56:00 Brian [facility] Danielle ESTIMATED GFR 2021-08-29 09:56:00 Jhoan Torres spital Danielle MAGNESIUM LEVEL 2021-08-28 08:58:00 Jhoan Torres spital Danielle PHOSPHORUS LEVEL 2021-08-28 08:58:00 Jhoan Torres ospital Danielle CBC HEMOGRAM 2021-08-28 08:58:00 Jhoan Torres spital Danielle BASIC METABOLIC PANEL 2021-08-28 08:58:00 [facility] ESTIMATED GFR 2021-08-28 08:58:00 Jhoan Torres spital Danielle MAGNESIUM LEVEL 2021-08-27 10:10:00 Jhoan Torres spital Danielle PHOSPHORUS LEVEL 2021-08-27 10:10:00 Jhoan Torres ospital Danielle CBC HEMOGRAM 2021-08-27 10:10:00 Jhoan Torres spital Danielle BASIC METABOLIC PANEL 2021-08-27 10:10:00 [facility] [place] [facility] Danielle ESTIMATED GFR 2021-08-27 10:10:00 Jhoan Torres spital Danielle HC COMPLETE BLD COUNT 2021-08-26 09:24:00 Mirna Simmons [facility] W/AUTO DIFF BASIC METABOLIC PANEL 2021-08-26 09:24:00 Mirna Simmons [facility] MAGNESIUM LEVEL 2021-08-26 09:24:00 Iris, [facility] PHOSPHORUS LEVEL 2021-08-26 09:24:00 Iris, [facility] 2021-08-26 09:24:00 Rm Medina spital HC COMPLETE BLD COUNT 2021-08-25 10:07:00 Iris, Mirna Mercedese [facility] W/AUTO DIFF BASIC METABOLIC PANEL 2021-08-25 10:07:00 Iris, Mirna Mercedese [facility] MAGNESIUM LEVEL 2021-08-25 10:07:00 Iris, Mirna Soto [facility] PHOSPHORUS LEVEL 2021-08-25 10:07:00 Iris, Mirna Brittany [facility] ESTIMATED GFR 2021-08-25 10:07:00 Rm Medina spital HC COMPLETE BLD COUNT 2021-08-24 10:03:00 IrisMirna [facility] W/AUTO DIFF BASIC METABOLIC PANEL 2021-08-24 10:03:00 IrisMirna [facility] LACTIC ACID LEVEL 2021-08-24 10:03:00 Iris, Mirna Soto Method [facility] MAGNESIUM LEVEL 2021-08-24 10:03:00 Iris, [facility] PHOSPHORUS LEVEL 2021-08-24 10:03:00 Iris, [facility]FR 2021-08-24 10:03:00 Rm Medina spital SMEAR REVIEW 2021-08-24 10:03:00 Rm Medina spital HC COMPLETE BLD COUNT 2021-08-23 10:23:00 Iris, Mirna Soto [facility] W/AUTO DIFF BASIC METABOLIC PANEL 2021-08-23 10:23:00 Iris, Mirna Brittany [facility] LACTIC ACID LEVEL 2021-08-23 10:23:00 Iris, Mirna Brittany Method [facility] MAGNESIUM LEVEL 2021-08-23 10:23:00 Mirna Simmons [facility] PHOSPHORUS LEVEL 2021-08-23 10:23:00 Mirna Simmons [facility] ESTIMATED GFR 2021-08-23 10:23:00 Rm Medina Ho spital XR CHEST 1 VW PORTABLE 2021-08-22 19:09:01 Viral [facility] HC COMPLETE BLD COUNT 2021-08-22 18:43:00 Viral [facility] W[facility]AUTO [facility]FF [facility]ENS[facility]ABOLIC 2021-08-22 18:43:00 [facility] 2021-08-22 18:43:00 Feliciano [facility]EVEL 2021-08-22 18:43:00 Viral [facility] MAGNESIUM LEVEL 2021-08-22 18:43:00 [facility]al [facility] THYROID STIMULATING 2021-08-22 18:43:00 Feliciano [facility] HORMONE [facility] PHOSPHORUS LEVEL 2021-08-22 18:43:00 Viral [facility] ESTIMATED GFR 2021-08-22 18:43:00 Viral [facility] ARTERIAL BLOOD GAS 2021-08-22 18:14:00 [facility]-LEAD 2021-08-22 18:06:59 [facility] GLU[facility]SE 2021-08-22 17:51:00 Rm Medina spital OSI CHEST 2021-08-22 17:46:00 Candida Olivarez [facility] HC COMPLETE BLD COUNT 2021-08-22 10:26:00 Mirna Simmons [facility] W/AUTO DIFF BASIC METABOLIC PANEL 2021-08-22 10:26:00 Mirna Simmons [facility] LACTIC ACID LEVEL 2021-08-22 10:26:00 Mirna Simmons [facility] ESTIMATED GFR 2021-08-22 10:26:00 Rm Medina Ho spital AR AN ELECTIVE 2021-08-21 21:25:00 [place] [facility] ENDOTRACHEAL AIRWAY LAPAROTOMY, EXPLORATORY 2021-08-21 21:15:00 [place] Lissy [facility] XR ABDOMEN 1 VW PORTABLE 2021-08-21 13:30:00 Mirna Simmons [facility] SURGICAL PATHOLOGY REQUEST 2021-08-21 13:22:00 Rm Medina [facility] COVID-19 ANTI-SPIKE IGG 2021-08-21 10:28:00 Cj Norton [facility] ANTIBODY TITER Jose Antonio COMPLETE BLD COUNT 2021-08-21 10:28:00 Mirna Simmons [facility] W/AUTO DIFF BASIC METABOLIC PANEL 2021-08-21 10:28:00 Mirna Simmons [facility] COVID-19 SEROLOGY PATIENT 2021-08-21 10:28:00 Cj Norton [facility] SURVEILLANCE Jose Antonio ESTIMATED GFR 2021-08-21 10:28:00 Rm Medina Ho spital LACTIC ACID LEVEL 2021-08-21 10:28:00 [facility] Jose Antonio PATHOLOGY OUTSIDE 2021-08-21 00:00:00 Jed Reardon [facility] INTERPRETATION MD [facility] HC COMPLETE BLD COUNT 2021-08-20 08:53:00 Mirna Simmons [facility] W/AUTO DIFF BASIC METABOLIC PANEL 2021-08-20 08:53:00 IrisMirna escobar [facility] ESTIMATED GFR 2021-08-20 08:53:00 Rm Medina Ho spital XR ABDOMEN 1 VW PORTABLE 2021-08-19 20:52:00 Lila Kumari [facility] LACTIC ACID LEVEL, SEPSIS 2021-08-19 20:37:00 Mirna Simmons [facility] - NOW AND REPEAT 2X EVERY 3 HOURS OSI ABDOMEN 2021-08-19 17:47:00 Scotty, Candida [facility] XR ABDOMEN 1 VW PORTABLE 2021-08-19 13:40:00 [facility] CARCINOEMBRYONIC ANTIGEN 2021-08-19 13:20:00 DoyleAndrade Paul [facility] ([facility]) CANCER ANTIGEN 19-9 2021-08-19 13:20:00 Andrade Westfall [facility] PARTIAL THROMBOPLASTIN 2021-08-19 13:20:00 Josue Fair [facility] TIME (PTT) Pastoral LACTIC ACID LEVEL 2021-08-19 13:20:00 Candida Olivarez [facility] PROTHROMBIN TIME WITH INR 2021-08-19 10:16[facility]00 [facility] 2021-08-19 10:16:00 Candida Olivarez [facility] TIME (PTT) COVID-19 QUALITATIVE 2021-08-19 08:42:00 [facility] Wally [facility] RT-PCR Sree LACTIC ACID LEVEL 2021-08-19 08:36:00 [facility] Sree HC COMPLETE BLD COUNT 2021-08-19 08:36:00 [facility] W/AUTO DIFF Sree BASIC METABOLIC PANEL 2021-08-19 08:36:00 [facility] Sree MAGNESIUM LEVEL 2021-08-19 08:36:00 Wally Ernstist Ho spital Sree PHOSPHORUS LEVEL 2021-08-19 08:36:00 [facility] TYPE AND SCREEN 2021-08-19 08:36:00 Jem Ernstwnagi PatBaptism Ho spital Sree ESTIMATED GFR 2021-08-19 08:36:00 [facility] PROTHROMBIN TIME WITH INR 2021-08-19 08:36[facility]00 [facility] 2021-08-19 08:36[facility]00 [facility] 19-9 2021-08-19 08:36:00 Candida Olivarez [facility] XR CHEST EXTERNAL STUDY 2021-08-19 03:07:00 Candida Olivarez [facility] CT ABD/PELVIC EXTERNAL 2021-08-19 01:25:43 Malachiparadise [facility] ABD/PELVIC EXTERNAL 2021-08-19 01:25:00 Candida Olivarez [facility] STUDY POC URINALYSIS DIPSTICK 2021 15:51:00 Candelaria Sears [facility] Love History of Exploratory [facility] Lap[facility]oscopic [facility] Hyste[facility] Knee [facility] Replacement [facility] Hip Replacement [facility] History of Simple Bunion [facility] Exostectomy (Silver Procedure) Plan of Care Planned Activity Planned Date Details Comments Source Future Scheduled 2022-09-30 HEPATITIS B VACCINES Met [facility] Test 19:46:46 (1 of 3 - 3-dose series) [code = HEPATITIS B VACCINES (1 of 3 - 3-dose series)] Future Scheduled 2022-09-30 Hepatitis C screening [facility] Test 19:46:46 (procedure) [code = 932308478] Future Scheduled 2022-09-30 Screening for [facility] Test 19:46:46 malignant neoplasm of cervix (procedure) [code = 286401002] Future Scheduled 2022-09-30 BREAST CANCER [facility] Test 19:46:46 SCREENING [code = BREAST CANCER SCREENING] Future Scheduled 2022-09-30 COLONOSCOPY SCREENING [facility] Test 19:46:46 [code = COLONOSCOPY SCREENING] Future Scheduled 2022-09-30 SHINGLES VACCINES (1 Met [facility] Test 19:46:46 of 2) [code = SHINGLES VACCINES (1 of 2)] Future Scheduled 2022-09-30 COVID-19 VACCINE (3 - [facility] Test 19:46:46 Booster for Moderna series) [code = COVID-19 VACCINE (3 - Booster for Moderna series)] Future Scheduled 2022-07-23 HEPATITIS B VACCINES Met [facility] Test 13:49:47 (1 of 3 - 3-dose series) [code = HEPATITIS B VACCINES (1 of 3 - 3-dose series)] Future Scheduled 2022-07-23 Hepatitis C screening [facility] Test 13:49:47 (procedure) [code = 968355693] Future Scheduled 2022-07-23 Screening for [facility] Test 13:49:47 malignant neoplasm of cervix (procedure) [code = 386101675] Future Scheduled 2022-07-23 BREAST CANCER [facility] Test 13:49:47 SCREENING [code = BREAST CANCER SCREENING] Future Scheduled 2022-07-23 COLONOSCOPY SCREENING [facility] Test 13:49:47 [code = COLONOSCOPY SCREENING] Future Scheduled 2022-07-23 SHINGLES VACCINES (1 Met [facility] Test 13:49:47 of 2) [code = SHINGLES VACCINES (1 of 2)] Future Scheduled 2022-07-23 COVID-19 VACCINE (3 - [facility] Test 13:49:47 Booster for Moderna series) [code = COVID-19 VACCINE (3 - Booster for Moderna series)] Future Scheduled 2022-07-23 INFLUENZA VACCINE Method [facility] Test 13:49:47 [code = INFLUENZA VACCINE] Future Scheduled 2022-07-22 HEPATITIS B VACCINES Met [facility] Test 22:33:11 (1 of 3 - 3-dose series) [code = HEPATITIS B VACCINES (1 of 3 - 3-dose series)] Future Scheduled 2022-07-22 Hepatitis C screening [facility] Test 22:33:11 (procedure) [code = [id number]] Future Scheduled 2022-07-22 Screening for [facility] Test 22:33:11 malignant neoplasm of cervix (procedure) [code = 910142769] Future Scheduled 2022-07-22 BREAST CANCER [facility] Test 22:33:11 SCREENING [code = BREAST CANCER SCREENING] Future Scheduled 2022-07-22 COLONOSCOPY SCREENING [facility] Test 22:33:11 [code = COLONOSCOPY SCREENING] Future Scheduled 2022-07-22 SHINGLES VACCINES (1 Met [facility] Test 22:33:11 of 2) [code = SHINGLES VACCINES (1 of 2)] Future Scheduled 2022-07-22 COVID-19 VACCINE (3 - [facility] Test 22:33:11 Booster for Moderna series) [code = COVID-19 VACCINE (3 - Booster for Moderna series)] Future Scheduled 2022-07-22 INFLUENZA VACCINE Method [facility] Test 22:33:11 [code = INFLUENZA VACCINE] Future Scheduled 2022-07-09 HEPATITIS B VACCINES Met [facility] Test 11:39:05 (1 of 3 - 3-dose series) [code = HEPATITIS B VACCINES (1 of 3 - 3-dose series)] Future Scheduled 2022-07-09 Hepatitis C screening [facility] Test 11:39:05 (procedure) [code = 275986015] Future Scheduled 2022-07-09 Screening for [facility] Test 11:39:05 malignant neoplasm of cervix (procedure) [code = 387798565] Future Scheduled 2022-07-09 BREAST CANCER [facility] Test 11:39:05 SCREENING [code = BREAST CANCER SCREENING] Future Scheduled 2022-07-09 COLONOSCOPY SCREENING [facility] Test 11:39:05 [code = COLONOSCOPY SCREENING] Future Scheduled 2022-07-09 SHINGLES VACCINES (1 Met [facility] Test 11:39:05 of 2) [code = SHINGLES VACCINES (1 of 2)] Future Scheduled 2022-07-09 COVID-19 VACCINE (3 - Me [facility] Test 11:39:05 Booster for Moderna series) [code = COVID-19 VACCINE (3 - Booster for Moderna series)] Future Scheduled 2022-07-09 INFLUENZA VACCINE Method [facility] Test 11:39:05 [code = INFLUENZA VACCINE] Encounters Start End Encounter Admission Attending Care Care Encounter Source Date/Time Date/Time Type Type Clinicians Facility Department ID 2022-04-01 Outpatient SYSTEM, [facility] [id number] 10:41:31 PROVIDER Barney lazar 2021-08-21 Outpatient STEVE, [facility] [id number] [place] 13:19:11 [facility] 2021-08-19 Outpatient ANGEL RIGGS, [facility] [id number] [place] 12:52:48 [facility] 2022-09-09 2022-09-09 [facility] Stephen, 1.2.840.1 [id number] Jareth 11:33:01 23:59:00 Encounter Isidro 87042.1.[address] 3.430.2.7 Hospit a .3.752723 l .8 2022-09-09 2022-09-[address] [facility] [id number] [place] 00:00:00 00:00:00 ISIDRO [address] 2022-09-08 2022-09-08 Travel 1.2.840.1 1.2.494.522 [id number] Methodi 00:00:00 00:00:[address] 3.430.2.7 0.2.7.3.698 Ho spita .3.721735 084.8 l .8 2022-08-25 2022-08-25 [facility], 1.2.840.1 [id number] Methodi 12:43:34 23:59:00 Encounter Isidro 50369.1.[address] 3.430.2.7 Hospit a .3.748407 l .8 2022-08-25 2022-08-25 Office Mitchell, 1.2.840.1 [id number] Methodi 12:15:00 13:14:03 Visit Isidro 00654.1.[address] 3.430.2.7 Hospit a .3.638559 l .8 2022-08-25 2022-08-[address] [facility] [id number] [place] 00:00:00 00:00:00 ISIDRO [address] 2022-08-25 2022-08-[address] [facility] [id number] [place] 00:00:00 00:00:00 ISIDRO [address] 2022-08-25 2022-08-25 Telephone Sirls, 1.2.840.1 [id number] 2099 [id number] Methodi 00:00:00 00:00:[address] 3.430.2.7 Hospit a .3.608634 l .8 2022-08-25 2022-08-25 Travel 1.2.840.1 1.2.847.975 7208 259713 Methodi 00:00:00 00:00:[address] 3.430.2.7 0.2.7.3.698 Ho spita .3.866027 084.8 l .8 2022-06-24 2022-06-24 Office Joie Gonzalez 1.2.840.1 [id number] Methodi 14:15:00 14:45:00 Visit Alfred Patten 37636.1.[address] 3.430.2.7 Hospit a .3.588708 l .8 2022-06-24 2022-06-24 Office Joie Gonzalez 1.2.840.1 104 [id number] Methodi 14:15:00 14:45:00 Visit Alfred Patten 16591.1.[address] 3.430.2.7 Hospit a .3.088469 l .8 2022-06-17 2022-06-17 [facility], 1.2.840.1 [id number] 2099 [id number] Methodi 11:08:12 23:59:00 Encounter Nicko [address]328.1.[address] 3.430.2.7 Hospit a .3.907140 l .8 2022-06-17 2022-06-17 [facility], 1.2.840.1 [id number] 2099 [id number] Methodi 11:08:12 23:59:00 Encounter Nicko [address]504.1.[address] 3.430.2.7 Hospit a .3.082649 l .8 2022-06-16 2022-06-16 [facility], 1.2.840.1 [id number] 2099 [id number] Methodi 12:22:00 23:59:00 Encounter Nicko 48345.1.[address] 3.430.2.7 Hospit a .3.866111 l .8 2022-06-16 2022-06-16 [facility], 1.2.840.1 [id number] 2099 [id number] Methodi 12:22:00 23:59:00 Encounter Nicko 87757.1.[address] 3.430.2.7 Hospit a .3.627798 l .8 2022-06-16 2022-06-16 [facility], 1.2.840.1 [id number] 2099 [id number] Methodi 12:17:44 12:21:00 Encounter Nicko 15735.1.[address] 3.430.2.7 Hospit a .3.126556 l .8 2022-06-16 2022-06-16 [facility], 1.2.840.1 [id number] 2099 [id number] Methodi 12:17:44 12:21:00 Encounter Nicko 76411.1.[address] 3.430.2.7 Hospit a .3.924464 l .8 2022-06-16 2022-06-16 [facility], 1.2.840.1 [id number] 2099 [id number] Methodi 12:05:15 12:16:00 Encounter Nicko 03999.1.[address] 3.430.2.7 Hospit a .3.840105 l .8 2022-06-16 2022-06-16 [facility], 1.2.840.1 [id number] 2099 [id number] Methodi 12:05:15 12:16:00 Encounter Nicko 02938.1.[address] 3.430.2.7 Hospit a .3.782860 l .8 2022-06-16 2022-06-16 [facility], 1.2.840.1 [id number] 80845 89586 Methodi 00:00:00 00:00:00 Only Nicko 51198.1.[address] 3.430.2.7 Hospit a .3.088417 l .8 2022-06-16 2022-06-16 [facility], 1.2.840.1 [id number] 63687 Methodi 00:00:00 00:00:00 Only Nicko 19444.1.[address] 3.430.2.7 Hospit a .3.308626 l .8 2022-06-03 2022-06-03 [facility], 1.2.840.1 [id number] 2099 [id number] Methodi 00:00:00 00:00:[address] 3.430.2.7 Hospit a .3.927949 l .8 2022-06-03 2022-06-03 Telephone Jamie, 1.2.840.1 [id number] 2100 [id number] Method 00:00:00 00:00:[address] 3.430.2.7 Hospit a .3.388993 l .8 2022-05-25 2022-05-25 Ancillary EL 1.2.840.1 [id number] 1094 [id number] Univers 23:30:00 23:35:00 Procedure 98831.1.1 it y of 3.412.2.7 [place] .3.502394 MD Rivera8 [facility] 2022-05-25 2022-05-25 Ancillary 1.2.840.1 [id number] 1094 [id number] Univers 23:30:00 23:35:00 Procedure 14770.1.1 it y of 3.412.2.7 [place] .3.703860 MD Adam [facility] 2022-03-30 2022-03-30 Ancillary 1.2.840.1 [id number] 1092 [id number] Univers 20:05:00 20:10:00 Procedure 12937.1.1 it y of 3.412.2.7 [place] .3.117156 MD Rivera8 [facility] 2022-03-30 2022-03-30 Ancillary EL 1.2.840.1 [id number] 1092 [id number] Univers 20:05:00 20:10:00 Procedure 07195.1.1 it y of 3.412.2.7 [place] .3.817027 MD Adam [facility] 2022-03-30 2022-03-30 Ancillary 1.2.840.1 [id number] 1092 [id number] Univers 20:00:00 20:05:00 Procedure 29936.1.1 it y of 3.412.2.7 [place] .3.320777 MD Adam [facility] 2022-03-30 2022-03-30 Ancillary EL 1.2.840.1 [id number] 1092 [id number] Univers 20:00:00 20:05:00 Procedure 73355.1.1 it y of 3.412.2.7 [place] .3.296281 .8 [facility] 2022-03-25 2022-03-25 Lab Liban Javed 1.2.840.1 [id number] 52 [id number] Univers 00:00:00 00:00:00 Jed Velez 96941.1.1 ity of n 3.412.2.7 [place] .3.319319 .8 [facility] 2022-03-25 2022-03-25 Lab Liban Javed 1.2.840.1 [id number] 52 [id number] Univers 00:00:00 00:00:00 Jed Velez 62246.1.1 ity of n 3.412.2.7 [place] .3.422619 MD Rivera8 [facility] 2022-01-01 2022-01-01 Outpatient GC_TNC_Lovi PRIV PRIV [id number] [facility] 06:01:00 06:01:00 tt_S [id number] Medica l 2021-12-23 2021-12-23 Office Renu, 1.2.840.1 [id number] 2099 [id number] Methodi 10:45:00 13:24:32 Visit Candelaria 21643.1.[address] Love 3.430.2.7 Hospit a .3.229868 l .8 2021-12-23 2021-12-23 Office Renu, 1.2.840.1 [id number] 2099 [id number] Methodi 10:45:00 13:24:32 Visit Candelaria 86187.1.[address] Love 3.430.2.7 Hospit a .3.869912 l .8 2021-12-23 2021-12-23 Travel 1.2.840.1 1.2.089.117 8641 784928 Methodi 00:00:00 00:00:[address] 3.430.2.7 0.2.7.3.698 Ho spita .3.183766 084.8 l .8 2021-12-23 2021-12-23 Travel 1.2.840.1 1.2.661.275 7141 266481 Methodi 00:00:00 00:00:[address] 3.430.2.7 0.2.7.3.698 Ho spita .3.392400 084.8 l .8 2021-11-29 2021-11-29 Telephone Trudy Vernon 1.2.840.114 9 [id number] Univers 00:00:00 00:00:00 LÓPEZ 350.1.13.10 it y [facility] 4.2.7.2.686 Chapo as [phone] [address] 2021-11-27 2021-11-27 [facility] [id number] Univers 16:00:00 16:56:53 SLY [facility] 2021-11-27 2021-11-27 Sly Mcmanus [facility] 1.2.840.114 [id number] Univers 16:00:00 16:20:00 Darlene [facility] 350.1.13.10 ity [facility] 4.2.7.2.686 Chapo as ILA?BLEA [phone] [address] MEDICAL OFFICE BUILDING 2021-11-27 2021-11-27 [facility]patient [facility] [id number] Univers 16:00:00 16:00:00 MARY [facility] 2021-11-24 2021-11-24 Telephone Renu 1.2.840.1 [id number] 21 [id number] Methodi 00:00:00 00:00:[address] Love 3.430.2.7 Hospit a .3.525876 l .8 2021-11-24 2021-11-24 Telephone Renu 1.2.840.1 [id number] 21 [id number] Methodi 00:00:00 00:00:[address] Love 3.430.2.7 Hospit a .3.517753 l .8 2021-11-17 2021-11-17 Telephone Renu, 1.2.840.1 [id number] Methodi 00:00:00 00:00:[address] Love 3.430.2.7 Hospit a .3.891006 l .8 2021-11-17 2021-11-17 Telephone Renu, 1.2.840.1 [id number] Methodi 00:00:00 00:00:[address] Love 3.430.2.7 Hospit a .3.182198 l .8 2021-11-10 2021-11-10 Clinical 1.2.840.1 [id number] 99960 Methodi 11:00:00 12:59:[address] 3.430.2.7 Hospit a .3.233309 l .8 2021-11-10 2021-11-10 Clinical 1.2.840.1 [id number] 33959 Methodi 11:00:00 12:59:[address] 3.430.2.7 Hospit a .3.683181 l .8 2021-11-10 2021-11-10 Travel 1.2.840.1 1.2.214.008 7109 774252 Methodi 00:00:00 00:00:[address] 3.430.2.7 0.2.7.3.698 Ho spita .3.788104 084.8 l .8 2021-11-10 2021-11-10 Travel 1.2.840.1 1.2.937.698 5717 848393 Methodi 00:00:00 00:00:[address] 3.430.2.7 0.2.7.3.698 Ho spita .3.902082 084.8 l .8 2021-11-05 2021-11-05 Clinical 1.2.840.1 [id number] 46515 98909 Methodi 11:00:00 12:09:[address] 3.430.2.7 Hospit a .3.213579 l .8 2021-11-05 2021-11-05 Clinical 1.2.840.1 [id number] 92309 45349 Methodi 11:00:00 12:09:[address] 3.430.2.7 Hospit a .3.548471 l .8 2021-11-05 2021-11-05 Travel 1.2.840.1 1.2.524.670 8166 464235 Methodi 00:00:00 00:00:[address] 3.430.2.7 0.2.7.3.698 Ho spita .3.217660 084.8 l .8 2021-11-05 2021-11-05 Travel 1.2.840.1 1.2.084.482 3907 729013 Methodi 00:00:00 00:00:[address] 3.430.2.7 0.2.7.3.698 Ho spita .3.145555 084.8 l .8 2021-11-03 2021-11-03 [facility] 1.2.840.1 [id number] Methodi 05:21:00 16:04:00 Encounter Candelaria 39120.1.[address] Love 3.430.2.7 Hospit a .3.521753 l .8 2021-11-03 2021-11-03 [facility] 1.2.840.1 [id number] 205 [id number] Methodi 05:21:00 16:04:00 Encounter Candelaria 56935.1.[address] Love 3.430.2.7 Hospit a .3.887825 l .8 2021-11-03 2021-11-03 [facility] 1.2.840.1 [id number] 2100 [id number] Methodi 07:30:00 10:40:[address] Love 3.430.2.7 Hospit a .3.995547 l .8 2021-11-03 2021-11-03 Surgery Renu, 1.2.840.1 [id number] 2100 [id number] Methodi 07:30:00 10:40:[address] Love 3.430.2.7 Hospit a .3.694869 l .8 2021-11-03 2021-11-03 Anesthesia Sommer Nichols 1.2.840. 1 [id number] Methodi 07:29:00 10:23:00 Event Mel Avila 89019.1.[address] 3.430.2.7 Hospit a .3.520558 l .8 2021-11-03 2021-11-03 Anesthesia Sommer Nichols 1.2.840. 1 [id number] Methodi 07:29:00 10:23:00 Event Mel Avila 96543.1.[address] 3.430.2.7 Hospit a .3.818325 l .8 2021-11-03 2021-11-03 Telephone Kylie, 1.2.840.1 [id number] 21 [id number] Methodi 00:00:00 00:00:00 Shenetrius 48076.1.1 553 s t 3.430.2.7 Hospit a .3.895628 l .8 2021-11-03 2021-11-03 Telephone Kylie, 1.2.840.1 [id number] 21 [id number] Methodi 00:00:00 00:00:00 Shenetrius 98515.1.1 553 s t 3.430.2.7 Hospit a .3.769136 l .8 2021-10-29 2021-10-29 Pre-Admiss Renu, 1.2.840.1 [id number] 2 [id number] Methodi 15:20:00 16:20:00 ion Candelaria 68345.1.[address] Testing Love 3.430.2.7 Hospit a .3.391156 l .8 2021-10-29 2021-10-29 Pre-Admiss Renu, 1.2.840.1 [id number] 2 [id number] Methodi 15:20:00 16:20:00 ion Candelaria 06573.1.[address] Testing Love 3.430.2.7 Hospit a .3.463029 l .8 2021-10-29 2021-10-29 Travel 1.2.840.1 1.2.725.568 0479 115007 Methodi 00:00:00 00:00:[address] 3.430.2.7 0.2.7.3.698 Ho spita .3.931229 084.8 l .8 2021-10-29 2021-10-29 Travel 1.2.840.1 1.2.965.924 0990 115007 Methodi 00:00:00 00:00:[address] 3.430.2.7 0.2.7.3.698 Ho spita .3.299662 084.8 l .8 2021-10-27 2021-10-27 Telephone Renu, 1.2.840.1 [id number] 21 [id number] Methodi 00:00:00 00:00:[address] Love 3.430.2.7 Hospit a .3.166952 l .8 2021-10-27 2021-10-27 Telephone Renu, 1.2.840.1 [id number] 21 [id number] Methodi 00:00:00 00:00:[address] Love 3.430.2.7 Hospit a .3.843070 l .8 2021-10-20 2021-10-20 Telephone Renu, 1.2.840.1 [id number] 21 [id number] Methodi 00:00:00 00:00:[address] Love 3.430.2.7 Hospit a .3.550459 l .8 2021-10-20 2021-10-20 Telephone Renu, 1.2.840.1 [id number] 21 [id number] Methodi 00:00:00 00:00:[address] Love 3.430.2.7 Hospit a .3.576100 l .8 2021-10-01 2021-10-01 Telephone Renu, 1.2.840.1 [id number] 21 [id number] Methodi 14:15:00 14:30:00 Consult Candelaria [address]231.1.[address] Love 3.430.2.7 Hospit a .3.845021 l .8 2021-10-01 2021-10-01 Outpatient [facility] [id number] 28839 [place] 00:00:00 00:00:00 [place] [address] 2021-10-01 2021-10-01 Orders Rose, 1.2.840.1 [id number] 188460 3553 Methodi 00:00:00 00:00:00 Only Irene 63277.1.[address] 3.430.2.7 Hospit a .3.424677 l .8 2021-09-25 2021-09-25 Telephonic ESTEFANIA Wilson 1.2.840.114 1 [id number] [place] 11:04:05 12:53:20 Encounter Lissy CARDENAS 350.1.13.58 Health 9.2.7.2.686 [id number] 3 2021-09-04 2021-09-04 Office ESTEFANIA Wilson 1.2.309.487 1104 61438 MD 14:04:50 14:42:37 Visit Lissy CARDENAS 350.1.13.58 H ealth 9.2.7.2.686 [id number] 3 2021-09-01 2021-09-01 Telephone Renu, 1.2.840.1 [id number] 21 [id number] Methodi 00:00:00 00:00:[address] Love 3.430.2.7 Hospit a .3.140673 l .8 2021-08-19 2021-08-29 [facility] Candida Olivarez 1.2.840.1 [id number] 035 [id number] Methodi 01:47:00 13:27:00 Encounter Rm Medina 73065.1.[address] Jhoan Torres 3.430.2.7 Hospita .3.086778 l .8 2021-08-21 2021-08-21 Anesthesia Wells, 1.2.840.1 [id number] 110 [id number] Methodi 16:16:00 20:28:00 Event James 82119.1.[address] 3.430.2.7 Hospit a .3.738197 l .8 2021-08-21 2021-08-21 Surgery Steve, 1.2.840.1 [id number] 8161 Methodi 13:20:00 16:05:[address] 3.430.2.7 Hospit a .3.358009 l .8 2021-08-19 2021-08-19 Telephone Renu, 1.2.840.1 [id number] 21 [id number] Methodi 00:00:00 00:00:[address] [place] [address] Love 3.430.2.7 Hospit a .3.690840 l .8 2021-08-18 2021-08-18 Travel 1.2.840.1 1.2.716.036 5853 [id number] Methodi 00:00:00 00:00:[address] 3.430.2.7 0.2.7.3.698 Ho spita .3.293466 084.8 l .8 2021 2021 Office Renu, 1.2.840.1 [id number] 2099 801447 Methodi 09:15:00 11:41:18 Visit [place] 07313.1.[address] Love 3.430.2.7 Hospit a .3.432838 l .8 2021 2021 Travel 1.2.840.1 1.2.493.943 4280 560882 Methodi 00:00:00 00:00:[address] 3.430.2.7 0.2.7.3.698 Ho spita .3.468217 084.8 l .8 2021-08-11 2021-08-11 Telephone Renu, 1.2.840.1 [id number] 21 [id number] Methodi 00:00:00 00:00:[address] [place] Love 3.430.2.7 Hospit a .3.887986 l .8 2021-08-04 2021-08-04 Telephone Renu, 1.2.840.1 [id number] Methodi 00:00:00 00:00:[address] [place] [address] Love 3.430.2.7 Hospit a .3.933483 l .8 2021-07-09 2021-07-09 Orders An, 1.2.840.1 [id number] 0826 Methodi 00:00:00 00:00:00 Only Kaylah 69172.1.[address] 3.430.2.7 Hospit a .3.479789 l .8 2021-07-01 2021-07-01 Outpatient [facility] [id number] [place] 00:00:00 00:00:00 CANDELARIA 873 Method i 2021-03-11 2021-03-11 Outpatient [facility] [id number] 318 [place] 00:00:00 00:00:00 CHU 763 Method i 2021-02-26 2021-02-26 Outpatient [facility] [id number] 456 [place] 00:00:00 00:00:00 CHU 635 Method i 2021-02-24 2021-02-24 Outpatient [facility] [id number] 550 [place] 00:00:00 00:00:00 CHU 779 Method i 2021-01-08 2021-01-08 Outpatient [facility] [id number] 267 [place] 00:00:00 00:00:00 CHU 704 Method i 2020-11-28 2020-11-28 Outpatient THEKDI, [facility] [id number] 723 [place] 00:00:00 00:00:00 CHU 101 Method i 2020-11-20 2020-11-20 Outpatient PETAK, [facility] [id number] 937 [place] 00:00:00 00:00:00 JACQUI 050 Method i 2020-11-11 2020-11-11 Outpatient THEKDI, [facility] [id number] 814 [place] 00:00:00 00:00:00 CHU 428 Method i 2020-10-30 2020-10-30 Outpatient THESYDNII, [facility] [id number] 863 [place] 00:00:00 00:00:00 CHU 447 Method i 2020-10-30 2020-10-30 Outpatient STEPHEN, [facility] [id number] 866 [place] 00:00:00 00:00:00 ISIDRO 260 Method i 2020-10-30 2020-10-30 Outpatient STEPHEN, [facility] [id number] [place] 00:00:00 00:00:00 ISIDRO 261 Method i 2020-10-23 2020-10-23 Telephone Pcp, [facility] [id number] 00:00:00 00:00:00 Patient Health [id number] Does Not [place] [id number] Have A Professio [phone] nal [address] 2020-10-23 2020-10-23 Telephone Pcp, [facility] [id number] 00:00:00 00:00:00 Patient Health [id number] it y of [id number] Have A Professio [phone] [place] dical nal [address] 2020-10-05 2020-10-05 Laboratory Lab, Adc [facility] [id number] 15:32:07 15:52:07 Only Fam Pob I Health [id number] [place] [id number] Professio [phone] nal [address] 2020-10-05 2020-10-05 Laboratory Lab, Adc Fam Pob I [facility] [id number] Univers 15:32:07 15:52:07 Only Mary Sosa [facility] [id number] ity of [place] [id number] [place] as Professio [phone] [facility] [address] 2020-10-05 2020-10-05 Outpatient R [facility] [id number] [facility] 15:20:00 15:20:00 MARY ity [facility] 2020-10-05 2020-10-05 Letter Doctor TALIB [id number] 00:00:00 00:00:00 (Out) Unassigned, LÓPEZ [id number] [facility] [id number] [phone] [facility] 2020-10-05 2020-10-05 Letter Doctor TALIB [id number] 00:00:00 00:00:00 (Out) Unassigned, LÓPEZ [id number] ity of [facility] [id number] [place] as [phone] [address] 2020-10-03 2020-10-03 Outpatient MITCHELL, [facility] [id number] 466 [place] 00:00:00 00:00:00 ISIDRO 640 Method i 2020-09-26 2020-09-26 Outpatient [facility] [id number] [place] 00:00:00 00:00:00 219 Method i 2020-09-23 2020-09-23 Outpatient [facility] [id number] [place] 00:00:00 00:00:00 BROWN 868 Method i 2020-09-23 2020-09-23 Outpatient [facility] [id number] 7289 [place] 00:00:00 00:00:00 BROWN 910 Method i 2020-09-23 2020-09-23 Outpatient [facility] [id number] [place] 00:00:00 00:00:00 BROWN 911 Method i 2020-09-23 2020-09-23 Outpatient [facility] [id number] [place] 00:00:00 00:00:00 BROWN 076 Method i 2020-09-23 2020-09-23 Outpatient DUNLAP, [facility] [id number] [place] 00:00:00 00:00:00 BROWN 281 Method i 2020-09-23 2020-09-23 Outpatient DUNLAP, [facility] [id number] [place] 00:00:00 00:00:00 BROWN 555 Method i 2020-07-23 2020-07-23 Outpatient THEKDI, [facility] [id number] 495 [place] 00:00:00 00:00:00 CHU 397 Method i 2020-07-01 2020-07-01 Outpatient ERGUN, [facility] [id number] 322 [place] 00:00:00 00:00:00 GULCHIN 383 Method i 2020-05-01 2020-05-01 Outpatient LORI, [facility] [id number] 7128 [place] 00:00:00 00:00:00 NEHEMIAS 750 Method i 2020-05-01 2020-05-01 Outpatient LORI, [facility] [id number] 6848 [place] 00:00:00 00:00:00 NEHEMIAS 746 Method i 2020-03-19 2020-03-19 Outpatient ERGUN, [facility] [id number] 975 [place] 00:00:00 00:00:00 GULCHIN 523 Method i 2020-02-14 2020-02-14 Outpatient ERGUN, [facility] [id number] 037 [place] 00:00:00 00:00:00 GULCHIN 193 Method i 2020-01-31 2020-01-31 Outpatient ERGUN, [facility] 011 [id number] [place] 00:00:00 00:00:00 GULCHIN 187 Method i 2020-01-02 2020-01-02 Outpatient ERGUN, [facility] [id number] 252 [place] 00:00:00 00:00:00 GULCHIN 723 Method i 2020-01-02 2020-01-02 Outpatient ERGUN, [facility] [id number] 252 [place] 00:00:00 00:00:00 GULCHIN 357 Method i 2020-01-02 2020-01-02 Outpatient ERGUN, [facility] [id number] 247 [place] 00:00:00 00:00:00 GULCHIN 186 Method i 2020-01-02 2020-01-02 Outpatient ERGUN, [facility] [id number] 244 [place] 00:00:00 00:00:00 GULCHIN 131 Method i 2020-01-01 2020-01-01 Outpatient ERGUN, [facility] [id number] [place] 00:00:00 00:00:00 GULCHIN 825 Method i 2020-01-01 2020-01-01 Outpatient ERGUN, [facility] [id number] 032 [place] 00:00:00 00:00:00 GULCHIN 826 Method i 2019-11-01 2019-11-01 Appointmen ESTEFANIA KOO Thoracic [id number] 24 MD 13:30:00 13:30:00 t; CAREY KOO Surgery - Physicyarely PATINO M.D. [facility] shai Hinojosa 2019-10-18 2019-10-18 AppointESTEFANIA Muñoz Thoracic [id number] 95 MD 11:00:00 11:00:00 t; CAREY KOO Surgery - Physicyarely PATINO M.D. [facility] shai Hinojosa 2019-10-18 2019-10-18 Outpatient MHSE MHSE 7500 09:08:00 09:08:00 Delvis rivera [facility] Results Test Description Test Time Test Comments Results Result Comments Source Pathology Outside Interpretation 2022-03-26 23:58:33 Test Item Value Reference Range Interpretation Comme nts Materials j6zlsLWoCFGvoOCeQgUuEMMaQFJtj8bzCMRinPJrElIcQrCfIzVjLwvwkOLyCFKnTaQhx1kbx124qETn g7peGCObOuA2pMIjYUYrbYGnG378TKBlPXxvp1xsl9YsJHYfgSHpt5C7VOPYvvgdoQo6pSevX23we2T4 OndiZ4asDHVeMPJvK4VxIC2xCBHbHip9VFQ5GIM7GDP Received oDLJpH7JeTB0cNSUelPSbCJs5w9ovbImfSXIfZVX0x9lgMLprtjByMU0szq9vwOv9p3mkncNzJGDlRXC pkKAFMVJdC3TxeWxdCb3yyCo9cYttPtvxBSH5Cso5YC6ffc16wte1rPfkQULoaycrWnU4OOmtNSIxitj aCWb3PFxuKDVbzPxoREecHXQeouadRZqmYARgsZF0OS (test code ZirQBdK4FcPSFvWRmlSRKklvy5EvBzTi6eeNNguEqtLIrop2evz0kquOFfJwu8YFFeVjAdIzktXEudb0 Kpq6ynRQSjkz0tZXZ0mUKqlUnbm2S0wTGzAOGoeTDtagOfRHFmgh94fECxtBYqqPJjwz1verOnfKMjaS EbKML7uSDbflMrOKHciRNfMBIeOH9woQDmNJInkA6sz = 9973) txvBZEuWqYbsxefDBOjhJtuttLfSh5dfEjhSRB1BEtxU9zieK0nGoH3DCpnK9dvoX5zKYk1EByzcVY0B IEqxV2dXM7hangbh9xzDjWpFJ3orzvfc9emJoExKG5bumg6x9suXWJ8MBtfKMUgGmE4gaJ9WNUmhQWzG LRhwNyjGKepl263CPQ7MqWuMPNpa4WgG5UywYqcT18y bFqbY06oPTIqlGarcE8qxYvhkT4sXaIgRfCmTNr9xi51PGd2aysxrUnvQLe0nnUqRESpVVN2YEFxpATe ZOPbN4o6tnHyPZMgOIY0MSDavAQyADYzH9h1lrScLLS7SJd9ehJzHVLcrSJuzXFsINEuUgGuhNKmPAHk PeTrCKEycHEhkHKogLCqpP9hlUrbPIGojENydW7gBLL 8BQYwoybyFrEehYMwOWAvmODxvm91VNArqwDnbKXxxKmpmTUqCWK7FDUtQWSbIRClAYA9DTSsMvBeveT nESupoDQfULJnQXEtVEUnUGXbNDC7YEWyEqGcvlSsFPwihHAoOCXiPOKuYAZmZYUeMDC9GSUrKpSbbsN xJIgeyVZnZBMhOFSvGURdOXWzMTZ0CMJdNrKyhaXsIZ zaeXIcHVUaYTxscEXlHBX4B6nerPAeHPAfCUapkTLzGEBbF4qhlNYxYIvqNSJndVRrDcwdIPXrlOVcMq NaW5nnJOZcOyWwK1IwhYj9PTEbZMZkqxVfeNSqxHtieCJnRQR5ZMYiAKIdZDCbKWO5FPCwPnPunhBiTO awtAWkESQkRJCaTPYdDEWeFPX2SXGgZcYfedRcUOvty UDhBETpENYkLRSkTEQoRBC1OCVoIlDscqGhUFnmzADjQWTnTRYyTGDnLUErRAU8YWAwMgFomkDsOGuyv UMqVYIiNVzkoGQzAKL1Q6vxjVTbDJJsVWjmcWAiMGLrD7nzzSUaPQakZFRntQOhQdpiXPQueYQeHlBsA 2kfAAViHuTxO5VrgKc6XyIuMARpozVcsPNqpSlcqVGo NJS1MXGpERBkIPWwTXS0IMWnVxXkkuJsCHbmcPUeSNKxXOLfINYhGELwIEI3UNQrTfKvhtMaCVaodKOh JMHiCDSfSBHxKHBbEBB3YWRxRfZpezHjFZjfsLThFOTpPNUuOAGlZNQhAET7NKLqVwWnwvFnMOmquVGc YDQvFGcgcDUcEBL6M8teiAGnEIVbNUaoiBOgHLKcD7g gmHKvMXehGWWnuXZxIscfPMGtoZRpLqAwR9fhLBXdQuFgJ7QctOc1MoNwHPXpbyKhxP61Jludk9JlVXQ rCAC3XBkiPEmpxNkzsWJytelmEQeeyhOcHJjdgcwgAUFjBVflU7urAyBhPOZwtTpkTTkls6MtSDFcPLK gLfjoyaQjPCImODCxQEVfvS1pZoamD2UbaQ9hXGosAm glH6jsUUTkl7RkhG0fLEumqHVfbykpAMbggvIpPAanockbEXPlKAicS5mrCnIfETQofOtrLNmdn0NaJR QwUSObOsgsmrHdBEq6iuCcNMTcnUvnyMMuIDwdcgXdpSrgt8WaysBbfJimUPGnEIn5jqBynxpkiWu9mF RwyPzwLRBkfCrhpH4wUfPgThRdWAimlYEfizzwVEyla cZeZCxdobyeKJUwNDjrJ4maBaAwEAMfdJvsLLbdu0ZlTRZlPLIqKniuiaLwZDCvH60ifKZkoUOcBZBjL ZonYOMmASTrOrAwfLKiLuEiLzFalNzumKzmRAnwVmIdALNvCSktA6zdLrRoL8MjYRSuStQftQTtB5kgI 2HslKfiXAVdIKagwMHmWXMflRCgFEX1yQSjaxCfxSCu eBKvOPItJJpkYOE8dEYgrqfvpNChokrqBYmacfP1MORhUPemXMAmQYFpPfXrqEFjMdNfXeGocEcqoRtz CFewTmCeIBOiCHigV6crPjEwD9CpHFZcAsXzDtMVEKAdqXHyDSmciLFygukgNRnupqZpTJsqarpgZELn YKzrI0aaQgCkXXRgnOqkSJtoz3PaAUPjMEOrAhwkdnT yBRm1qbQiQXIbiGzryW29Eowkfp94JOGry6knLZVdN1SsqUTsULWmmCMzUGlhVTbuqVPkULFaHtzuNZX cgQRoOARyVEnbqSUnZHGbCzGvBTBuwQLyVWScDUAutTMuMAW3K5p6zmXuSSKaCRv7clLbRRXgXwMocII hOEL3HQg6HtqmumG3yGArI2v7FaqymaYaWPjnjSGhnl 47EPYevwAmyHPvaExiyPKgGCZ9ERXsGHZpZBZdWJT3HKHaMoTomtVwNYnvnNXiVBXtWWHcPUUbLMEsYP B8UOLfPsGwooGwLGrobZNrQXBbRLPtWRMgFIFjZQP3LIVgUyBqclHxJKuvwJWoQIXgEOYvGMBeXSDwIP I9JGZlRuHihsTwTIbzmUSqFIQvDAkhnNWvUNA1H9ttw QEeFKMpKDjnoRXhVCXmZ6cyvJDpHXaoJBLacSBwAokmEZWkfELqFxEpK9tdIJLzZdZqL8KocUt0YRGmP YHmftMjtCEduBwvxSTnSFW3HGZaZKYiUHKqIMO1NWAwClOxbpFmFLunkAMfMMVxRNSgYZNoCVHaINN4C REzFkCfpcHgARqvoXMnETTtPHXiTENjHISrHKN5QFKt EmMbfqEkHCenrMWyXCCsJKXgQYXxSWKnHLV9HUBlHsUbwqCaXVddxXLtUXJnTZiqxHUgFKN6F9zxvFRm GCObRLngyCZoTXXaJ7xrcLApSErcTKOpqLLqMelaODGcbERwYaTvF8euDYDyDgPlS5GvcCe2WlVjKMDg rqWmxEGwoMiqjABtEFV7SITgSOItYHPqNXK9QFGpNkO bxcCnFNkrjHXeUHTrTUXwAGRcHTGfJFQ8LEHoKoUrswFaLTmhpSNrKHFnDOSoJYVqDILxCLH1WESeYtN smqTtPEweaZEoXHDzYTTgIAEbGYPfDNJ2WCNhZmFarxUfLVexwSRlULMvNOmifPNwGQI8N0zzkHKjGNE mGJuerOIpLANtV7vxoJCvLBvwREGciERbGuttOGJunH EvVpQqU0ibPEGqGcTeX1WpwLs0HnYuPOMtsyTyvU42Oczqt5IhDVOgMGG0QOtfVNfolWkeeJCjqptgEZ ghoeV3BYHrAJzgKQGmUIVmTwEptWMhXqSsIfRmcGyodGfwCJevHlAmBEMuTUfiL7niEyQlK8PoINYoBz KbCU3bI8UvFnBsKmr9RBnzZDZ5MDFPRYKwUCVDQ2PSN bspRFSDU4PtaCefiV7uKdRpBoOjTTdpYE8pMIJaR6naaBFvWACwDVDmN6iaLoPenJ4vgXlqJIbsAhQzL sOpSCiwoZHxhLleUKdpXUNcwdFjwE04Ptcfz1YjCZMfLPR5QQgaIFopqFjqlHKjzwwrEGueevH9COJiT WluXGYxXGZzMjBcbGFuZzEwMzNcaGljaFxmMVxkYmNo EAPnMOqvV3kyBbBxB6GuCFIlPbYrEMZvEo2mMNHfPGLiATwwWSPoVVTdYiIsbLGuZrYoYaTogZupoXbf LPywXjCnMPDkLLahD7tpPeIfG4AvZURsAsLugMSdC2fhU9XbpQewWXDgBQpetNUoTZRfiOLwWMH8cLFm qaRhwJeljTfblN3qKaXrWxCqOYnywNNulyglKVlqkeP cPYsoneohOCNjRBsxJ7nkDuFhMXMmpEioHNmqi7MjDZThXFTvVikgdcHaDQNvIADqAhDiMlchaYUvncy qJPnuevMbBKbdphudCFAxILlgA2ryLcGxXIWyoZnaQGlxa0XlPLLmJMYqOmyeivBeITc7qnEzOFSxxYw apB62Phdwot67NCBpueNye1IcZSDtBFQ5JAxhQDapzD cndSAwgokeYJfsxyH5FRXhBMcgCGBtXICoRhQosGJaNsNwQgVgiFyagOmyEWubSrCkNHMySLbbM2moMi FcZnMyMFxwYXJ9 Addendum 1 y3tndELfLRNuvWR2EtDgZJHlc2fex2HieXPveGKnZZqyrKXnhlEcmk29eBA5oU35SI5eCVKgAoH8YGCd gfP0Mhk6ZBYlMJQwfISiO179p4gha5wryuOicEE7RNRwVCKvB9GxVR0pYMHzjAKzP92eyOSyMKU5KLOs DXWfoADaNUSzGHG4SSOykJChM2ndIDCaLG2okjvtQNw (test code mZEzfXLAowQC5TWPhlMLoJ8OzRXSzHLygSOPojfz9BoEmYc2eaWBbgShzABtkSTEeEFQvNTicPCWwWxV nN7XnOQ96rHNxOFYlCZSSJUPxJOV9FBk4ALQbWBTIHcylRHJEZL9CW1DaMXWgWNKBIZPuh3ukNID0YRD oo09xZHWzPq1iRWZwSUijiRVqPLSoYTckGEQoeCw0Fx = 37) KgfEknYyYtSVRtXGDLoRMwfrmjcu2cdGfeaktns7JeX7QyLanfaQF4YFfnOntzQGHulMbrMVTgIKTgFT rxKBplyX3uFZAcXBEilIVbRSSkmEHdNSNah57xhnovGA2iJBUtzmTpDX5sJLZpFEXqpoIReyYyFMewG0 3auiF7CGzsSQ01jLPuTTTdNHGcpdehRWPzdAYeMFrcI XJ9 Diagnosis y0rxqDVeXVZukPL4NsLtGTRfp3vde8PhpSRfwNAtVBxucYDjmkKvzq18rXH6cB77VO8gOFAnPoD3VTJy erM7Zjw6OEElNTWefNZdR077n8csn4lezvYoxKE9HLSsWFQbM7RxJI4gEUEvnVKgF01yvSYoXYQ2DVZs REXbcDVmKKYnWYO3UKMsoIXnL5kyNVDxFT6ozeilAEw (test code cLJpuONJrjRG2CZXxlCUpY6UeRPMpETlnOLBjabq8ElTrMb0xzJLgcCrhYYdcPERoIGZaYYjaDPMiRkD qW0EuEP74kKGxKSCqJMLEUKGrDTT9OIx1OONxSGTNWgvwRSEZOY1KV5IaBIHiOJLANLMug4ijIJK7OWA er42pFVNzEb0kVGWjKJrxnKHjOSEfVOrzLNLeiIa3Rt = 34) VmoMuvFhSxSDXrWJczluYcaZ8dl1m3rGTdIFSnjvBzsvzgHI4qw7GgGROhM81sctOxoVNbAJOwN9Hxu8 38AZSxvdrcgCUzCwUsOnqsBhHsVDkcxuUfQuFrAsIsxCrcCZA1xh7fTQrtXvphjs2poLYteNqrrIwucL prxVfymgXzdzWaskJzQ2EwOHBxyAFmbQpvTLGanOpov iGcnyQenJDabwnlaQGiZN36DFUuHvPiDHLoPF7rZJZaj4MvLGHvml7xCO1jQFHbRDNmz60tIA01GIMjP RtaTVSqJDCwo4Tia6g4TXBzXbMxV83fXRQptkOazHFuxCCaVPTsyA0vqFmkzGVxDT5vMFZqvL9coETdi 5JwPRPcqwR2gX5qduNapbFuPF87KBblPdPmIyjnABUz PkGoFYX8gY3wDY8pnvhrgsPfAMJdZUYyv7AxkZJmj9VaPOVtpfQWnaMfhOGct0KpyGXmf71uoNtyNd32 AKqqvPFlb6LfKktxTVXjrHZtCGyrSxDdFFHlQNtmhA60EfXlAx6hUEYcKR06HPI7XHSuaC1fy6f1YNKy wnw8QVVkUAqteEgrnIdhDPGlcXXmrVFpHZHok9rdWsB aWXTut87sTMejWEEkR26pxLJycSQwYjpgzNDmVEPzcmZRMcSLhLAacpiohy3xqPqctrwvq3CwW7BcMih ftAN4KEonRzgeZKOkaFFgRNCaKHZlJZGzW40gTPHmyDSbVcfbN3pllQT9sO1jp4c9XTymfIOnh4Kzr3S vQJAtZBWiLCCjOQMcxT6byGyvTJSrdegfKIAelVEiVL BhcmRccGFyfQ== Comment p4nulGZnLVHqvID2GcQhWYTuh7obw7HemDTmjDFwRVwdgXOvcaIxcd97fDS9hY95MU4kOZKeNyQ1ETMz otY0Bph5NZOdZZGptOOgH466e9bbx4izphVhmEY9pNxwHAPqrqzaXkT7WRbwWNZfnwwcVGv4NRshQXJs fOL8ZGQmsIUkW9FzZIFtFN2kaiu4TJG1VNnrMVZiOgW (test code 4WMDwmJLgIZBkuMbsICtbv387FNN1XcWqAOKxpwNrnPspyA9vIxQnOGQpPIsSrOSogZF0BXUqbB4rmO6 voCtxaV5luAEeoTRymTJfjJVvwhFsf8qowkR6iDW5IOXkRWWlsOQxkKOvEFAzkZYhwoHzcIXvjjScTKv efYn1RYWge2GcJyM2ZK7jNIArjzfnAKajzXLcMBKjTI = 9835) B1eIStu9Maq70rDHJGZtmkWWJTTUY1PUAwJCHwpS2nEXHra527yMBmeIWzzPVrKYC1lL9lUSBTIgUvNM ZAXNYwKCLrFBG8x2WiTcrYZZZnAWFvwoUdM8UrYpYkJZLNQCO2TUsiF5mnhSiblEQsrhRlE5EgMNFqK2 vcdb8uyTLwKOJioRIzYHUzyxAFjLCcy1LgwaZroPGqy D4zeL5oxkJdyeFtiUcsw7Eyl2LbNQJdWL0hM53qsZUsU9CmhmjmPlU1BIw0QEmpXDRgFHnsLI7ieL0eB USjTNWjJZOxeJQ3NmSQiRHtJGrmDvZjNE34uZApAYZfATiik7ZtlgXskeWkvGCqhwPpRZWcPUW9qNSsM A6vEOQkbavauzAieTQbu9ChJHQ6vSKthUWaY2XgcbIt jiXkTBYyZB5xX20lgwKcI4BnVLItwRBdyN1qKAW9C5fdBCSiME4gSKB1WAVuh4Hyqe43htJfKMejz4Pl WMPyu50zEkBuOM8epzbjw61lEEdwbQwhmvIiD8YxjtKuH6htxyjbnk0vLALlfmeqWNCtYkU9TEH2Ku0v jFAvNYVjaC41xg1qxDX5y8DrGD4aZ7BoCWJ1BQadRJI iscVRe72caoHqWDEyyQZokqJuFPLaamOcHi1uTQDeePlkjVHzNDPpl7DkgRskle9kqMAiKSNtdsbfGNC 9 Disclaimer q2wkzGJxPOGpmKTdOnIuPXKhESOhn0vwPPLqeSSbElHsXrGeUdAgEixrpHKfGGSwMlRzv6wbj615nIPb n2anYPTaWsB1uYVlSFDvqEQpD210ETEwQDlza8bih6YjUUKykAEez8V6AIFGibfnvOm7zEvyT06wl6B2 MnozZ0evHKKkIVTfX8JiUO0qZGWwJjc6DSU3IWT0WUN (test code kGWLnA4FvPL0iSNSohQSiKLy3c8uovLoiTSVhNLF3h5vnTOimvzRzPE6pyx0hiNy4e4mhqrCbLNAdKBK fdVBXHAPpV7YhgFhbJa3jvZb0pKkpSfguKLA9Zzk5HJ0iit40fsr0gQidOAJxzsseZoZ4NKngOJAobzl bPEm5KSthIRNnbJB7YUMhcTLvU8YuWUJzFF8pmzc9LK = 9844) U9PHsfALHzCpW7HZXrhRTgOMQhvXrjRVoim894EWV4SaSiIK9eL6Vpx9J3oA1ycSOxAONqxVUdVdVdBF Shxx2dqJPyLXswl9ZaINQ0iuK2fTFwvAQnOGMyTJ84Xkmck5EwCbpjLKO4EZYclhGzt0Jps6qqVhVeie WvK3nvO0UqIBOdWGFbDVGjQdTsofKpl6Vsf0MppJSgn Du5y4jjBNRoIUKlgVexs2yaTRV4VBZbS8C1eOJzi6wdMOihJGNkgYU7aoY4DQVjxJNgY2KgoC0cFAXaD L5oajb5h0eeZZO4MMozOQXuSvX6gxD5XCYvtMDpNGSgcErvMNtzi384YDR9DpWpTUGng7RdA5EtyMqdP 48tqXdmC05fKNIqvFosgA2osVcpqM3dCwHwChHrSYpu nWicrCSqeunoDMujldU9AJqraultNRVrMSwtN6lyTlUaWTKuyOsnCQmpy9FqAQLjKGTlJoduvaD1JEOM u59dGRMox7XmIJOvaW0rqRMfZEhfheLykJF3KIlqtiRcSmNrukXzTOOxcY7mLEQrON6aBPZlnvJsql4t bbXwELIyGIQpW9SeilnbiOnzpqMrSVNtui4qutRlETN 9VTXWET9AJRSfENExs13sEMXiqVlawW1soQXwbtFbBXCvi8UtxP5smPDQGGPiG8vdDV1wZPxol5CjkUO kqPPmdOP1LKHmx3WcEwWydnGhuZZkgDJrJ5YujFnlD2czGGOrCYJcdjTnfHPsk6GwWSHplLT1wRYpXW4 WLzUNl81mKSFqJXQEssZeZTTfwWdqoFI1vmS9zZ4dHt EMGcYxeSFyaHFpWasnOWWys450ry3gzeP2VTXdNCZoycksy9LfOQWwJFFzyZ56KOBtUDMber6kaynnkL EezeQuE8Cczdy5jM9qWTZmTBidEICyBLMxRtVuvMWaWdTqGtDumQsnrGhzTNsmDtZkDHWiPBmlE4nhGl FcZnMyMlxwYXJ9 [facility] Outside Interpretation 2022-03-26 23:58:33 Test Item Value Reference Range Interpretation Comments Materials Received (test a5uytIRiSUIuaZXvXxVg code = 9973) IJJrTXRhe2ggFLFcuUSn ZzEwMzNcZnRuYmpcdWMx SJNjLhXnv2xur005fKNy g1pvZRWqClB0lMQoXRJg mHYxM566NAZnTKmsg5uv p2RiFWCdrYNhd4Y0VTGF oueleTp3fNevE32mo4F9 MltaJ0twAPSrJWUcY1Su PK1sTCGwAyy0EZB0CVR4 KBVtXEStD8KfZA2iBSJe zPVeRLn2l6cssUjgZLSg OCA1u5jlBTciijIsNK9o ol2wdWu8v4jbnpQaCEMv HKOujONORTTvE2UdpGza Km0azJh0aKmjNbyvJLX9 Evf3BS5zns64iwp2qXfj ZPScorcaUcN7XMoqWKXj ephsFTm8NQczWBKsmVyq MFxtYXJncjcyMFxtYXJn jZG3RAYfpARkB9FjCUOi PHuyTACarsq3QkHvMf0f zLAeoLprXGewt0gbd1qf zSVqXus9FVVeQgZmVsiz HConi4Jdq5qeLTNyym4e TAB4cJYqnUawa1D7yOHc QAByyNQluwIgUGLkhl43 oYUvqUFxrFDgpw7hdwDj uWHkzCBbCBJ2hZKohgFg AQGxdYQfTWVdMQ3laLZl JKDayL6stcvtTBFfMaOc dozlBWPuzTvvrtYeMe6y tMkmUDO0BWtpK0pkxR3p AoM2IPqyA2qpbP8nQUp2 UZjnuSN4FCQsaA6pUT9j ldsdp4vqDlAaNL7vwdfx y6oqHuZqVZ6dael9i1vu ODM3QEriRRCdYbM2bhD7 NDBcaGVhZGVyeTcyMFxm k750HLN4YjLjVOMak7Zd Y0ZucIcwB70ikFxsF02z LSFfqTqhzF4chYucrD1c JuHvJuGsHTk2wn51DUo4 vgmjuTwjEEg4xbGnHVBx GSY5VLKeqNPeTSLaL7q0 wtVsQPAlUTU9HNAyoGBz WEKbU9c5zxRzYVO9PQc0 cnBhZGRmdDNcdHJwYWRk YjBcdHJwYWRkZmIzXHRy uPQryCNlzMWvwY6geJjq KNJfhXAojR4oVOM4DRIw cmgzMjBcdHJoZHJcbHRy cu11LRFlmuDpoPIxrAgg dXPxMDQ0TNHdHUQbTJBn SAB1YPXlMwHmspVbZAdb bGJyZHJiXGJyZHJzXGJy TYO9QYMiBpSnivJxVDcu bGJyZHJsXGJyZHJzXGJy YNY5SCRbToGayuNwLInu bGJyZHJyXGJyZHJzXGJy JXP8KNAiGvDlxqSxMIsj bHBhZHQxMFxjbHBhZGZ0 S7vahZWzTXFeAJdahPIj PVMfG3keiSVxJLxfBTMf cGFkZmwzXGNscGFkYjBc E9zrSJKtTfLuF3LdwIt8 MDAwXGNsdmVydGFsdFxj rJSeYCD4JUIwMHHuKPFh XCS7FHRnEfAhwoHrVPkj bGJyZHJiXGJyZHJzXGJy KGR2SQEoYpYddqRtLFfh bGJyZHJsXGJyZHJzXGJy ESX9GUHvLyTvlbWhIMou bGJyZHJyXGJyZHJzXGJy ZWU1VZJaShSidkFbXVjj bHBhZHQxMFxjbHBhZGZ0 J2urpIEuZGBzOPmtcGHg GVUsZ5qptMCqXPprWDKw cGFkZmwzXGNscGFkYjBc L8teIQIzKlKrO0UxcWi7 NjAwXGNsdmVydGFsdFxj lMEcETT9VLLeZZZmWBTc HMW9XLSlSeFemhEfCMql bGJyZHJiXGJyZHJzXGJy NUT4SURuXxDkhyWiONil bGJyZHJsXGJyZHJzXGJy CZU6GRMoRiCgybEsRQrs bGJyZHJyXGJyZHJzXGJy CYG7ELGkHxGeygTyEAmw bHBhZHQxMFxjbHBhZGZ0 C3yehGNnKDYmKMrhzGCv OGWwB1pwqUZnSUtdZBJr cGFkZmwzXGNscGFkYjBc W7ftFVIgKbDgN1VqmOq7 HcLpPBYezqYvsD60Yhwc n2UlDZGpMYW5LDijQSno bFxwbGFpblxmMVxmczIw VGyqqxhbYODgDQwvI0nt UrOtXAHxyZcsGLgcj3Wb XGYxXGNmMlxmczIwXGIg IMNuUVRijQ3wVvxpX9Wt rN4bYTxyCduzL0jcIDJx d3YuhK7oTDwhvLHsrdzw MVxmczIwXGxhbmcxMDMz ZChlW2nfVfElYOCevIqe JMyjb6QtWGNgZKYiIxha knEmJYm8ceOvJPEceIhh wDGzKYiqkgUzyNcqk4Ce hsAtrEfvUFTnTGe5ksIu wyfxpMe5lWTggYmhLIGc vPqmxD8lMkLwPqKjBZvw bGFpblxmMVxmczIwXGxh widgFQBaCDafV9aiQhIf TKObsHmsQBvnp7PnIMBr AKQuUqkhhfKyYYOsO78a bGVjdGVkXHBsYWluXGYx XGZzMjBcbGFuZzEwMzNc aGljaFxmMVxkYmNoXGYx ODviX2veXgQnI9IrXHZb MkCfpKObM3jtX2LkaYkb YXJkXGludGJsXHNzcGFy DNA1nKLxnnOawUSfdUGn LLPeYXhlFKH6qWQtcpuf zFLiqjnqPPlvvvX6RHDz YWluXGYxXGZzMjBcbGFu ZzEwMzNcaGljaFxmMVxk VyPyXVLpGLlfQ0scIiMo C5EnUDLoJqAnUjOLKZXs aXZlZFxwbGFpblxmMVxm czIwXGxhbmcxMDMzXGhp N3uxBsPjCUJcoBssCZto b2MkJUPeBGNuJzhrmaHp KSh1vjMqTALtvJxczI57 Otivfi84INXru5cdVKGv X7BvqDQlEKKwtZJpDNpf MDhcdHJwYWRkZmwzXHRy cGFkZHIxMDhcdHJwYWRk ZnIzXHRycGFkZHQwXHRy lMOqWHU2D8x2vmShYCXf YZb5slYaLTVdUyKgxCRz XIJ4JAw5HcvmwmN1tPGf N0b8BoyprhGyFXjahTZt ff20LTWhspMolJQnaKkh mWJdFGL7XCNeNKRhGSFu EPP1VXVcNkXsmkHtKYod bGJyZHJiXGJyZHJzXGJy DLA5DOFpAoQxqtCiKQnx bGJyZHJsXGJyZHJzXGJy NOE8WHLfEgMuizFxPOjl bGJyZHJyXGJyZHJzXGJy TII1WHFjZhAnycBiSPfi bHBhZHQxMFxjbHBhZGZ0 H0arjBFiRPMbYTqrxPWm ZSPqU1nacABxCZcsWCXy cGFkZmwzXGNscGFkYjBc P5uiCGSqQfGaT6LkrWv7 MDAwXGNsdmVydGFsdFxj rLOlNIJ6LIHpETQzITDy DJQ1OTVhWpYjxdYfRGlg bGJyZHJiXGJyZHJzXGJy JHB0IOQiVmHdurYzIOjw bGJyZHJsXGJyZHJzXGJy UJH9NRWnUiVjarXuTBzj bGJyZHJyXGJyZHJzXGJy NZE9OBNtAxVrmfCkGVes bHBhZHQxMFxjbHBhZGZ0 A1zohVUsSQLtTVcjqXIg EWKtT5ndfCLaAWggSEOj cGFkZmwzXGNscGFkYjBc S6flJUXeFqXaI0JfzMz5 NjAwXGNsdmVydGFsdFxj gRSfMZK0XSAfSZNvPNIn TJZ2PHPwNoGdwpIrUGmr bGJyZHJiXGJyZHJzXGJy LHL9IOMqZkEbfdMxYNkq bGJyZHJsXGJyZHJzXGJy JTC7IQHoXiDvewKsPEuo bGJyZHJyXGJyZHJzXGJy HSY5HGIpJvDiwtVxBJpx bHBhZHQxMFxjbHBhZGZ0 A0uylDEtTIRuYAjttFXx LNCdQ5orsWZzTLfzTWFr cGFkZmwzXGNscGFkYjBc R8xuUPQhUcKrH5PykAg7 KaMaIJExkqTxxG01Iwcq a1GsMJPaTCP6UIlaJWsr bFxwbGFpblxmMFxmczI0 XHBsYWluXGYxXGZzMjBc bGFuZzEwMzNcaGljaFxm SBvuNjJcISQjOFoiM9be PhKcZ3KeHCRuZgQuJV8f N7OwIaHvKsg2YGnoQHA0 HQAMBEWuGZGVN8MYEwil QUODQ7SrgCarnU1nSwTc ZpBeZXigQI5jYILyS8uv rYKcOFXeELKnM6jgCiUw gQ8omDtzQQrwEhZzBoGd MFxsdHJjaFxjZWxsXHBh umCzwX00Xepqg0SiXDOr NSD9VVmsLLmljNukkOUf lkvxNEgqcvF8ZSLdDZyp XGYxXGZzMjBcbGFuZzEw MzNcaGljaFxmMVxkYmNo RLVzBWfdB0ffCsGcD7Eg ITTxWqJaABAwDe7iVHXu XHBsYWluXGYxXGZzMjBc bGFuZzEwMzNcaGljaFxm EJthGsItFOJjEVuuP0sv RuMwO3SqPLCuKoThuROl D2xyS8GyvQtkQBHmCVme yDEnXTMwnDDrXYX3kONv bfRmzJhbrTymcT6iWlSn ZnMyNFxwbGFpblxmMVxm czIwXGxhbmcxMDMzXGhp C1nwFnEwPMLplLeqOJsv j4OxHRIkXPRyLbcxirMs IDUvMTEvMjAyMlxwbGFp blxmMVxmczIwXGxhbmcx MTKbNScsX8aqDlOwINBa mJdlBGzih0EwFQPlRFTg GjgzgbKkJZl1zcVoJRCc fDqneC73Umenoe85VBZs vzMzr4WfVNSbBSS1IDxr MFxxbFxwbGFpblxmMFxm ohZ5ZTCfVLlxTXQvHFQd MjBcbGFuZzEwMzNcaGlj aFxmMVxkYmNoXGYxXGxv H8bvBmBxEvKqKVooQPH3 Addendum 1 (test code = y3jgbOMeYLMtkWR7HkUg 37) LZZjh4ujt5RicEQjyZCu WTllrAFhxkFdxj50vOK9 tA71UB9rDWZwSkK0PDJz sgU2Zhd9XVRbWWEvhHKg Z609v7qcv4miboNpvQK5 YSDtIAJfC4EpQR4wGDAh hPOgM05hsTEtIIN4KECc CGZpnKKbGZRfAEX5FFVx oMDkE8aoRWKnER2scdjz UNheAOezHIEjbDE7TVQz qLSpH9AdKMLzHAnvVGQd jfz1ZeBlDj5ufUNhrOuo MFxwYXJkXHBsYWluXGZz EqGpA8EfXB89zQKdDKUn HJZPTKDfPXH1YYs1VLSt IPFVIsovYHEOVA0WO5Az FHUpHGZEWHPvs3apXJW7 JIKoe64iVVWiLm8jPISe KTpccGFyXGNmMFxwYXJc gLr9TbEeiGohDhUbPHRb RBKYcUYklpausc8muDks ljhkk1ExI3LbYnamgHY0 IHgyOlxwYXJcbGkyMTYw PJCwHBgaDMvaqW6xBMOg IEJpbGUgZHVjdCBhZGVu c01xdkdyMA9yITArjcCm NU8xDSGtCOVfyqDTftQo RJlhE30rjuS7HSgjZW25 aWZpZWQuXHBhclxwYXJc cGFyZFxwYXJ9 Diagnosis (test code = q5tvkKEoFGTlcMO0CfDa 34) HKZcz0aqa6OntKDejYMa KPmzsMAypkZnsg93bAD6 uL18RB1mEFPvMjA4VWZf rxJ0Qci8YDHmABPbhVFc I041r8vdo1urraYpzTM0 PKNuBZPgF2HcEA0bSIMl gYOeZ82unZQnDHI8EUEg LNGuiDJdVIRvNNL6VENr dMGfJ2zuKZVhDX1zhhom EOfuXGkqEWLgcEE3NWKb rHTwN8UxUHMrUVrlNNRi zta9MgQqTj3fwASspOao MFxwYXJkXHBsYWluXGZz SyNvQ5UiCH74zJJvGXUu UNHZKXSgWDW1LEi1CPIm BSNZWayhLEWDYI8JY7Sg POPwGGZHQBZsw2nrNLM4 ANMxf65pNWSnFo0vQEGk KTpccGFyXGNmMFxwYXJc wWy4PkOtvLtmTwJzYQCf NAnhttObgM8es1t9bLPm VDWrpcRygpawEF2fp9Zg WNIuN15pncQfqGFoHYId Y4Bop944CHDpksgkpXBv NjBcZmktNzIwXGxpbjIx HoJcYlUwsXobUOC7qn4o XCbaTwrhlr5yyMVjdFnl bGluaXphdGlvbiBhbmQg zsYoL2SgOFMhrZShpSkb ZXJhdGlvbiBpbnZvbHZp ujullMGwHL28IJUtVmTm OSHcAF7eCKMpp2CpABSj id0aBJ9kGKWlBBIse38u OI17YQUkNNdzVITvFQXo e2Wry5x3FCCiHhZtQ93l KFBlciBvdXRzaWRlIHJl rU4yzDqqgKTlVM3bKVKp qP7bnFMeq6TzXFOaoiY2 aP7mgzXevbHdVW47IVfv LzEpLlxwYXIgUmVzZWN0 oF9cPE3zcxypslFiFBPw TWBnd7RrrVTnl5AyYECt aeLFngEbeBAhf4TrwIBm f04tzGtgNu51GXpgrAOv g1PtLkgsWFRpvIKtVAbn UoMhWCLfFIvgxF89YhQn Zj8wVPPaBV43XFU0XDVs xP4vx0c2POCzyfc1YSOq SHlhbGluaXplZCBzdHJv zHWmUDNjx1mtWqTdVTBz y37zZEunCZNvB40ziRTn dCAjMilccGFyXHBhciBD KwWPnMRkujliwe2xiNso pvxci3WnY8JhVdveiYB8 IHgyOlxwYXJcdGFiIFRv JGEiASGrU82zBAUplNKr MhpsT3akrGB7tC6pu6w3 JHdffEYwc3Oih5OeSVYd CLIyQQXoLSRhiX8smYxx XHBhclxwYXJccGFyXHBh cmRccGFyfQ== Comment (test code = v2ehqQYwADGrvZV4EoSk 9835) VPTvn2isb2KsbVNojVCu TGcbjWLlekHojk88zNX4 uA59GB2zHCVhHlA4AMOx ntP9Noj3TMEgSHVreYJu I575c5gpw6jazyIbvOP1 nTwyYSVlzpngWeQ2CGrl DHNxerzzIBw7PWjcEMPg dUM5BNEakFAlH4BpKZYh PF0hfev2NAH0XWoxZOUn ZqL0DMWswLCtEYWwxWyx DMlkn882FNS8BoQeLUHo hvYahZhdoI9pLpOpGDKi YKhLmHHmuCX3HGJfiM7g tY4yxTyojQ3gcGHvqZJs hFNqkYPvcvNyg4xqsuO8 dXZ8JHIhCKNzvWPxaAIv IGNvbXBvbmVudCBpcyBu BNwtaOo9DVXja5AgAbE9 WW1bQPEsttojJArehFKv FLLpJLC9yZZby7Gkk32a PSWXCtagKMIHWPQ0AVBl PINomI5fSCJqk062jIXr wCPcyXScCHG0uV5vLDUE SzEsIFNPWDEwLCBmYWN0 y1WvVggCFWUvWUTxedYa X0DhGmOnKOPPZCE3BCqo A4kabTwdnCAjpxVzM2Qg KZCeA9azwk6ziNJuWPXn fZKwQZYagkQJnHQtc2Tn gtWqmMIuuW6lxL7xdpRu htHlzSemg1Obx0ZyGYTl XU8tR54zjQFzP5Ngidyq TaE2SMo3YUgjSMIrXFxt NI8tnB4dTOVmVQTrEXLf rYY2XcXOdMTrVPkpPaLt SK21nSOtODKxNMqfg1Ry cyBpbmNsdWRlcyBhIHJl RRL6hGChTY0iWFPrftot hnXapMXgf0TnICC8qANg wUCdX1HpmnGlsuTeDULm XE8cQ33qdxJcB9PkWOUc uZRcdG4nDBR7W3yuGCNl SB2cDWU2PVZfj4Bgiy20 rsArTHqic4KlHCEtj41y VrLyUB4rcwgcy64lDMst uOfldiXwB0SkctXqU5ty kogvek1eXTJlbpmhQDJk QxR6BEO0In0scHOiPLKj bL78fg6leWC9r2ClYJ4u J2FuWFS6RAtwSTJohiAR l76euxLaEMUmmRDbnzEu ZSGiqhHmId6nSZPjoYux tJEyWWNie4GbmWcnnu6g cGFyXHBhclxwYXJ9 Disclaimer (test code = r0nlvHRyJIMxpSFvYpOi 9844) WWFwTCVzl9auVHJdaOYb ZzEwMzNcZnRuYmpcdWMx IPFlHoUyu3wgy022tQXi v9lbPXUeDnF8cWJfFEFd qGErB407HLYoCAnas0mf m4XoVBCvuTZnh4X1JOSH txrcrVp6fQifS04bu0L8 OdyqQ3qiVIZvDIIjH5Zw GG4jGCSrGan8PHD0STZ7 XCEoTOJaE1OuSP1aRZWp eWMyOGm7f9tvrKtsSOOy VPB2k3ocBQotgbJjXR2g vw7gxMj0s9xetvHqJXKo UQQqjUEGCQQrV4MdlPiq Yj1fgNt1cHzlXopvZRM1 Mqz4RQ1ymi44ncr7lIwr DTYudbohIoH5WHadONGg kkuhQNt5PWrvHJElfNY6 KIBlbLTuF0OgGAEzUM8e orc3SVG2QKxiVOShBdQ3 NDBcaGVhZGVyeTcyMFxm b330GJP3FoCjFA3oW0Ht s6J8jA7caWHuLNHjhVMb UnLlLLNvrz4xqAVuMChy d4DyGCP2ydK7fEZnaAMb DHKpCU44Fyqei1UyWlkv BFD5ONIgbeTmr8Wbz6tx UrTdchMxU6xxZ6NkOMCv LFZeYLCbMrRkzxLlp0Tg o0EonILzxWy7z2ouFASa WAChwRlnv8yaPGM4XMBs D2J2qAQco0nqGYowBOSb uYP5atX8FABeiGEeE0Wv aD3nNAWtJK8zzvj2j1kc NCF8EDtsXKJuVwI0ohN4 NDBcaGVhZGVyeTcyMFxm j938QPL2IfJxNGIem1Ck N8KwxKrxP07toQxsV86x ZZWebHkqyY7qcOslvF1h ZjBcZnMyNFxxbFxwbGFp agovOFgtogJ6OCjajxqm AXZyYWpfD6ipWoVlBIWl uTvoURtfv2HpXATxZSUs NvvznlS2GLBSp46uMDHs l4CtHDMfbL6grNJuSCyr edBkhFF2KYhwmqLjSuSy ixIbTEMrfS0cLWDrSY2h APRerjGhfo5hdhZbPXTb ZCKjN9AyiulzaWwpuxFf RHRmsr3jsrHyEQX5ZMDO JZ9MCCZkOIKiv25jMRPq sGwwpN8ocUTgjwAnLMLe p6BfiW9mvOBLCUIlA9pc LX6mMQlee9EdiTNfqEHf uNL4FPOsh4SyPmGeuiOp eYSodNXvB5LagKjqO9ug IHDsELDeydVujMUhw0Vb ZXValSB4xZTxIJ0FDeCO j35qSFWeQOZDyaZmSDGm eOlrfRY9twY4hY8tYkEZ ZiBhcHBsaWNhYmxlLCBj b596hy5qfoC0UKAhEUUq okwgr5SgYBXaSXRvcF27 YQCyXZWwbg9pnesjqHEz zhDhQ5Frogw5uO0yDTPy YWluXGYxXGZzMjJcbGFu ZzEwMzNcaGljaFxmMVxk ZkEvACOfPOpwJ4fmTuQa ZnMyMlxwYXJ9 [facility] Interpretation 2022-03-26 23:58:33 Test Item Value Reference Range Interpretation Comments Materials Received (test i8txsBFmQEDocOXkSwVy code = 9973) JQCnEDWow7mtWAPfuHNi ZzEwMzNcZnRuYmpcdWMx KCVeRzYoq3jns434tIUi r7wyRAAuMiO5uURrOANv wGBuB666XCAdLJlob9dp t8JeLGZnjFYtn8N0QRRO vyufxZw4pAtfA98ye3D5 TggtG5zgDLEmNOSzK2Ma RT8dUEVtXga4RZO1MPM1 FIZvCUAuL3WdMP1hNWXp kLMqZQw3i5sxzHumWPVy SIW2d3gsEZgyeiWsHY3n eg0xzXg4n8nwtvHdRMPw LPJvuONCDKOlA1EmfZyc Kf6mwBe9rIimUwxjBJL5 Edu7PK9dbg27mem1mFue RATnyqgnPwR2RRnbLHEz gmtrIUs6QRfaYHFuzGzg MFxtYXJncjcyMFxtYXJn fHC5OBYjzGZjQ1HpBPOt GHqpDDMrxuy6AsVyQb2l sURcvTkiARonf2yxn8yf aFNaCni5OJSmGbAtAyxm UVqdy0Kzc2moLIRpqe6t FYB1aAPwnWlbo2G0cUQp WEQshUOcjuHaHVNfqi39 yATllVIuaHRpyj5eqcRm fWUfjDDxNDO6cYZmmoNg NABqsTBjEYAiRX9udDWc PUGhkD5pbhgtWEMxNrIf lsbtHPJswZetghCdLe2l nSdzHIP0YQmcK1vatW6g PeH7WIkeY7lgjQ0dYWe9 LPqisPG6SHHmlO4uCQ3a zllec1ngEbSxFO4hkrue r0heClQqMN5iblp3y0xx ABV0TKuwROSxKxP9pqY6 NDBcaGVhZGVyeTcyMFxm y190VFC3BcArBCNzf0Tt X0NhhUdtZ48zuDpiB28b VUXxxSqfpY7qiDxhqG3y TaTvBuCeAFu0ne38OWw5 gmljtHgcYBa4wzCqMIKi FRO7HZXeqZCjYOOyT7j7 ygAkKZYkAAD2PJWtiTBs EMZdA7r1gtWmJZG9PWg8 cnBhZGRmdDNcdHJwYWRk YjBcdHJwYWRkZmIzXHRy vMKtyNBryRDraA5qoVjn WERetWJqbS4fKJF8BRPk cmgzMjBcdHJoZHJcbHRy zi56QLOjjfJmyHHegOon lCNdNJQ8MGGeFVNzNKXl ABA3HKMxNcBdyuWyWCia bGJyZHJiXGJyZHJzXGJy YUO3RNHfCrPlxtRnVLks bGJyZHJsXGJyZHJzXGJy UJK0NKKmChFrbrRaOSlp bGJyZHJyXGJyZHJzXGJy JGQ6OUGzGuKcrkSrUWfd bHBhZHQxMFxjbHBhZGZ0 L5vfqRKhXWDsHWwarVQn VWKsW8vuaHVcUYvbSCKx cGFkZmwzXGNscGFkYjBc V3doMHGtSiIgU3NgsAa9 MDAwXGNsdmVydGFsdFxj yUVtFCY3SUIeTKNzFLCs EEQ3SILoWoDzbgNgYNwz bGJyZHJiXGJyZHJzXGJy EBL5LRRkGcNakrKhCPpe bGJyZHJsXGJyZHJzXGJy EUL1PARlKjXjdkKlLLej bGJyZHJyXGJyZHJzXGJy KPP9RNCjRxIfwxKwTOmq bHBhZHQxMFxjbHBhZGZ0 T8wcvYViJDQoMMtmmZAd CNHwT4pdvJGjPSjsOHIq cGFkZmwzXGNscGFkYjBc Z9txQOVfWzAmJ0AzgAz7 NjAwXGNsdmVydGFsdFxj eQFoVQB4RHAhLLOtCUXg OIR6EAAmArIzebBcPBgv bGJyZHJiXGJyZHJzXGJy FGX6UPYqZaXarkAdWYxy bGJyZHJsXGJyZHJzXGJy SJP9ROAkQfSnziJxAOpl bGJyZHJyXGJyZHJzXGJy LWD0IZMfBrEvmpDdFRmp bHBhZHQxMFxjbHBhZGZ0 X7exaEEkEUYoXPcdxNVq FGShO9jacBSkNFzpJFKq cGFkZmwzXGNscGFkYjBc V2nnOBWdLlEvC5XlzGd1 FhPwMQEuphCaaW44Jgjx o7JrLQBaZVO6WDtaZXzt bFxwbGFpblxmMVxmczIw TFpabrcnZGFmVHrsV0gw DcWaBGVwaEkdLFvme2Ra XGYxXGNmMlxmczIwXGIg DFIvJISqxS1mSlusM2Bd gP0wMEbcKlmhX8qlSQCx g6FvkR3oSOjbvIAzbord MVxmczIwXGxhbmcxMDMz WDtgI2tmRbXuWJHuaRnr YItmx7RxHNVhEGNrIovy biKoSYf2hpGuVPBddNdv nXYmNAatuoBzlXsup9Me iiWooEvnHHWeNAa4vbKj snmilQr7rXXulUheWQYd tBcujB1sLtZjMgIhFJka bGFpblxmMVxmczIwXGxh kwutEMGfCPjyX9ddUeBu ZQAkgOsjPNiww2SnRDOc ILUoJkbcqaRiNYLaX42p bGVjdGVkXHBsYWluXGYx XGZzMjBcbGFuZzEwMzNc aGljaFxmMVxkYmNoXGYx YEsnJ1phViDoO7HmKBIx HdVwcKPgR7ocJ8EbtUtm YXJkXGludGJsXHNzcGFy YTF2gSThzvXcyGAvbWCn RSLcAHkgJFU2bJMxkxpr jCHuqkuxOOynktH5OFJz YWluXGYxXGZzMjBcbGFu ZzEwMzNcaGljaFxmMVxk JdBqCTZhYKimX1ebHzQo Q0SgSXFzOpYlJaRZSXIu aXZlZFxwbGFpblxmMVxm czIwXGxhbmcxMDMzXGhp X9vhSdQaYQXykPjgUIna f8GdDJNeTNFiBhjkvqTf ZIb6lyTwXTBsiJfhwU18 Auhxel49DLYvh8scHRGa R7OvwVUjBMFebGPvFLls MDhcdHJwYWRkZmwzXHRy cGFkZHIxMDhcdHJwYWRk ZnIzXHRycGFkZHQwXHRy vFTtTXF7B4d9fmQgJYVr YVb7nnDxISElIaSfsQEm YEE5FJm1PvkdtzY3oXYr R3k3PydwotMkEJhxmGMl vz83HEPywhUqzHZlsGwo mXQhQVH0KNCqUZGbUKEc IEL4QSXwEnBojsPpOVef bGJyZHJiXGJyZHJzXGJy ANQ4CQSeXeYimqXfHZvk bGJyZHJsXGJyZHJzXGJy YXW2YTVaWjYpegHvWQlk bGJyZHJyXGJyZHJzXGJy FYQ3DKTiRxJlzmMoSAne bHBhZHQxMFxjbHBhZGZ0 K3unfLOaMQTkIEsinUKg TNDfM4ojoHIhVLbhXKIe cGFkZmwzXGNscGFkYjBc H3ouHGArAbOsG5McmTe0 MDAwXGNsdmVydGFsdFxj yUGjKYJ6ASDuSKAtUPPq SPC3MMGgExDhdaEpLLcs bGJyZHJiXGJyZHJzXGJy HHO1LPNmJhTehfFnIZqz bGJyZHJsXGJyZHJzXGJy EDZ9WVRqDoYukaDzVSiq bGJyZHJyXGJyZHJzXGJy JFV2OELbEvAbbhUsQCnr bHBhZHQxMFxjbHBhZGZ0 Y6yxhEQzNFEwZWfqqZFk ABPwR3dqhQSpBQppIRCm cGFkZmwzXGNscGFkYjBc A3ouJBFbGqZgC8CcrFx2 NjAwXGNsdmVydGFsdFxj wCMoKSP1TPQbQVEkLGGh IRS0DUJcPjYluiJpOSph bGJyZHJiXGJyZHJzXGJy JJV7TPTbJrGkrgOkFAyo bGJyZHJsXGJyZHJzXGJy UXN7XVJvIsEbfyLzUNjc bGJyZHJyXGJyZHJzXGJy IUK6OUDeOvGnxiSvWUhn bHBhZHQxMFxjbHBhZGZ0 T4jreGZsQHNuUKcrmTCa QKJuB6dpkGDaGLmePZPa cGFkZmwzXGNscGFkYjBc H8luMZRrHpVmF9JceBq6 CjWfZKOpygHybT73Zsqf t1BtSNHaPET7VNrhSTah bFxwbGFpblxmMFxmczI0 XHBsYWluXGYxXGZzMjBc bGFuZzEwMzNcaGljaFxm VKtkHoJuZOWgAYnzA9rp SgKxG1EcGJWkLtCiWI0e E8RrPoLaOud0OUodSOB4 TGPQJSPtCEJMC4WNBwnp CFNSU6FbxKbbjM1dYpPu JgWrBSwjOD0iRDByB1vi jZUmUHOtJKZwH6dnAhIs vD7djWdkOMgkQjWlCcHy MFxsdHJjaFxjZWxsXHBh tyRboV25Mykje5EoCCRn CQV6WRnnUIeboJvmrEGy rhjdQXsncnC1AOHzPGur XGYxXGZzMjBcbGFuZzEw MzNcaGljaFxmMVxkYmNo XCZaUTpiU5osLzOkH7Ls VAQoFzEuBGZgRg0dIVHu XHBsYWluXGYxXGZzMjBc bGFuZzEwMzNcaGljaFxm WYjxChHyZXQhYXjzS9dk IyKvV4DwNTClWeRirNOl G7enM8FkkJkmJJHfOOfe dYSeTRJiaHIeNTX1jWIo smPqkJxwmQzcoE6wGeFa ZnMyNFxwbGFpblxmMVxm czIwXGxhbmcxMDMzXGhp E4qbBiJaTXAhoMfwQKco m8PaXKHmZVWfZgqgmlQv IDUvMTEvMjAyMlxwbGFp blxmMVxmczIwXGxhbmcx XGOuIHknL7xcWtMiWJIu aIudSWynw1EqNPGlUEPc NesyhrKbJWn2ueZdYWVy uJrygI19Xiditq99KPRv yxUtd8QiDDMoUXK7PHlo MFxxbFxwbGFpblxmMFxm aeC3EJWwBMopQSCpCMQv MjBcbGFuZzEwMzNcaGlj aFxmMVxkYmNoXGYxXGxv M8biZrVjWoMyZYzvWLF3 Addendum 1 (test code = j8nprUPmKPRxzEZ2KzOo 37) QNDmw7png7YexCCamVGy VOuqyVXdhrUgsm35lCK2 zC09PD9eTTZlCjJ7INPe rvY3Dpv2XDPkOOVdgTBl G941l9rvg8wpvrWpqEY5 WGIeHDJmU3EqJR6xWBHm pUHhG15cdOMmSLP6VGQf JDJkqJEyPPVtIJX5NFNn cKAzP7raPUHrYA6vubem UYfgEAkiFQLtyRA8VOPl oFVwF5GpVWQeKEbpTSSa vhd8MoHxAb1uxIGfyLcc MFxwYXJkXHBsYWluXGZz VhDwS5MtTQ21uBLcSMDr TOPNIQBzQTY8PZn1UKRc JSBJSsjmGPKBBY7KL1Jl PVAsWYPGOSFsd0hiUPS0 VNXxt77qZYZcAl9kZYYl KTpccGFyXGNmMFxwYXJc cBf7WbMvbRfxVeYmTXAa AQOMtAClcggzkx2pnPpa scutl0QiP6RyTlbwlIP8 IHgyOlxwYXJcbGkyMTYw STCoMNgvFQrheA4kECSm IEJpbGUgZHVjdCBhZGVu g49wqtvjXH3lWCVgtpGw KF4zRQFaQKEhgxQBveEy UMryH76ssbT3VZuxRU06 aWZpZWQuXHBhclxwYXJc cGFyZFxwYXJ9 Diagnosis (test code = k5iixVOqULWmeUX5DeEc 34) FYTgb8yzf0GhwKJxpANm HNqngXQnezRuew19nGD0 vS98MY6zXHHyKrI8YUYf tfE5Wce0VPEwGFTuiDMv I684x9ttx3lnsvUaaWH2 QIKsYEVnK8JcTD9cKBQm sXXyU20yuEAhJFD1RSVh WSRysGBzCNLzQQF6IRDz oVZpS8msZUElTC5orzlq IXtpAYlsYLPtlWN3HQSl pDIoK2YrHXViRCleUSXn rgh0ScDgLq6hkWWxiYgi MFxwYXJkXHBsYWluXGZz HyLhD9PnNV30gLPhTBWf WHSJAAQqEJP3BUl7UUGi DPHVDxsgBCAVVV2SK4Rx VYArADUNSZBcz7wmMBL0 OHCsy54tSNWaLa4lDFJi KTpccGFyXGNmMFxwYXJc wPz7MkUdxGovEmDvAPGm BDfjulCckX9km0b7dLAf JTEeihVastgmAX2zq4Kg QWIyO85bimVblBDsJTCe U8Snt417WZXwxckqjBLw NjBcZmktNzIwXGxpbjIx FlLuPfHqcRnvFDZ8qq0w QSebNeryhm0kzYEcnZwb bGluaXphdGlvbiBhbmQg ebRdV6ByCYRfyFGanDrd ZXJhdGlvbiBpbnZvbHZp laupvWDxUB46DXAhOpBx XIBrRE3fQDYtr3TsVJQq xj5eMH2uHEMxLUMdo70c CY96BUBhVYasGPDeWZPt r6Gsm0f1VTFxXaMxM03j KFBlciBvdXRzaWRlIHJl vA1kpWfutFOkUT3gKEAj rH8mvFEwb6OpLTLqehG1 dL7fyqHrybSdHO21VKfy LzEpLlxwYXIgUmVzZWN0 yT6aHM3nfvrmmfBrWCIj RJSvd6HeaZUts0SnJRUw ruXKszWjjFKnw2StyFZg s73kyKifCi86KRpjuIJl j7MpIycfORQmmZCaOSdp AmFiNNSoQKryuL96WuOd Lm0jQSEaPY11FNL9GLIf eZ4oz4i9RBQlyqz4KLNe SHlhbGluaXplZCBzdHJv vZMoONVhu4knEhKsFKJv r55hSXqpLZFwH69xhKJy dCAjMilccGFyXHBhciBD WdZHlYUklxzusz3kwHyu vdjcy8NcN7YhMfpddFX0 IHgyOlxwYXJcdGFiIFRv UMRlEDSzJ91dMVKctAJr BdwkG3hcqFK1xR4ya7r4 GJmjfNJkz4Joq1DuOVXb XTEvVGLsWQKkqW6niVph XHBhclxwYXJccGFyXHBh cmRccGFyfQ== Comment (test code = r0ripRYfZKAirDP4HyDf 9834) BWIpe2rsd1AjnWFifQIp WGoanPWipvKkjd79gLX5 jT44NV7oKZPrNkJ3RFXu xmR4Yhe0OSKlFJFkbGRc V871d5rcz7xpxnMedVY9 tYbmAXCrnlurHlT1WIja WQGcgpjuKGc8IMecTPKq iKA2ONIsgINfO0BmFAAw RU3svwm3AKC5SIanFCLu WfI9RFRtyTPaNSIiqKxv CFouc458KAK5QcHmOSPq gcOuiBrvfP7tQrZvLYXs HRmScHTyvVL5DFDpbT8s eS1gdBwqzG0cbNSegSCe qKPorXIasqHnv9aotrE1 kOY6GQCbHQNrqRBxrRGn IGNvbXBvbmVudCBpcyBu EUbzhZf0KGElk6KxAmS3 WK1mOPIzsvcmMQlcaMQk ETLkLMV3fPHec5Bvx56e GUZKDnxrYGNGLYQ6TPMh EVYgqE3dRKOii409sATd pSFjmCEaRFY4eP5kMOOL SzEsIFNPWDEwLCBmYWN0 p0RuUrqYKHMyWABeaqAm H0PyPmUpMNWRNBL7KQsv G9ksuJoerLPbzmQsH2Hg PMOrY0chiv2miBXhXGIu nXFuMHCaepWXfJZem7Wc aaSgnAGpeW2qhH1frxFt fnGcgWcym8Yff3TuZERh ZI9wY62psCOaT7Afertk VeU9JKk2TCndWNDeAOee YA8apH1eLYShTDWgTLDs bEB2XdZBkQCbCPwnDoFi FS33yDSoVBRfTVubl5Wj cyBpbmNsdWRlcyBhIHJl GSZ6hTZeGW0rULOnhzyi psHcbQQke6VmEXZ4rCMo mOMuT7VniwVwygAtGZMj PZ1wT37jgqLhG3CjMNYg gJWouJ9yQMU2Z9cbSONv CQ9dJXC5MOPex0Utbq44 saYlCBpel2XxPJIlb69n PgBeDB7eddksp46nPAcj zUnhqeYhY0DpifAgD1hj tbbwxp2mZVApmjotSFNw SkW4PSY9Uy2tcIUdAIAa hP51mp6myDG4r2BiXS5e A9UfNHU0UWugJEQzqnJK s10mbdKmVRZbkAEchvPn BZLeqlOlQo7wBHVbeMnl qAVmMMRxu6FnbIsfhh9j cGFyXHBhclxwYXJ9 Disclaimer (test code = r4wggCQgKPJhsCJaNnLd 9844) FVJxZCIla8lwWLCerFYx ZzEwMzNcZnRuYmpcdWMx QZQjPaScm7wxp064kZMk d1cfQHLgEyN5bIOgMJJv jLCsU431FOAjDQgbs1rw q9QyWQSwsNHcf4L9OCJW lcbohHc7gHznQ28pw1M5 YvplE7nsREBqSTTlF3Ur ZN6rJDNcAyu2IJP1ZCP2 FFNySOUaH9LxKN9mHCOu sGMvESn9o9mtoMibWZTo RQK0q2taWLryqqEzMW2p xl3zvVc4f5pthfKwTPCx DNBcfREVFUIpK7YrlTiy Cw1stEm8wAjlZprvJFI6 Pdh8QQ5hpd49ifn0aWod HUEmpnyfOxR9EOuiDOYi vhvlRMs3LIvxOBCzyWV1 XSTvsQHgE8CpKEBdPL7n ehs7BBV6JHcuFQAyBjP5 NDBcaGVhZGVyeTcyMFxm o599ZRO6GwSsKU8uZ8Pe z5M2dP5ylLThLTBjzWDn EdJpVTFjiz2uwFKlLGlh u5NtVDJ5afV9aFRpcARn MMHhHB04Rrbme8TyEjcc QAO6DZGwgqLsv9Ebj5ta AfWqszMgO9bqA0DxCMLy GCVdMAHbZaIvjpSfg7Ln z4OxhUHtbUb2y1txKITt RXZnnRdab9gqAZA9VRTf W9C7zRPrq5ndKOtgFCHx zAH5qdZ1ZBXfmKMpJ4Ag tN4tJRBzUE4beht2l2vu MOV9HJloEIHxAaF2lgG1 NDBcaGVhZGVyeTcyMFxm y856WHF3CdVsRBVid4Yb Z0MupIlnO07brMgoK70o GIJgaWgrmK6xjZcopB1o ZjBcZnMyNFxxbFxwbGFp jumxBFlgpzZ6WQvijefn AINrKHkmG6hdQfTxXMBm lLhqRZwmi0ZlNZTuFCEz MrypovG3QVSTi47oDUZx v8WcDPYkcR0obHFuRLsz onYaoOG3SMisvbDzSoUi tiPjYMAkwV2fHQOlGI2x CRKmoeBuhn7gqvGlRXLd FMKhG4NxudtywRfipeBu OOHgkp2zvqEkKOY0TKRZ MD2VVQErISOhe64zWQUi kBvcpS7wfMPrgtBwCYEa o7PobF3lzJFPGJFeD5xw VZ0jWZlle4SqsMLrmWAu oOK5XMEnx6KzLcEqcfJi iFEljUAoC6XasBkuU9qm EKRuHDQmfxVblQUir7Zt ZHBjeGV1mWCyDN4CQcJN g19dGVNeBYVXlcPpVWIc tVjbrHT9htH0pS3pPfIA ZiBhcHBsaWNhYmxlLCBj l789te5qzsF0IMOaOCCp rugwx5OrITJhDXOlzL84 NNSlHWHnsl5thpgdxMCb oiZfO5Hebiu7yW2kTANj YWluXGYxXGZzMjJcbGFu ZzEwMzNcaGljaFxmMVxk SoTtISVjMLpwH0noEwIq ZnMyMlxwYXJ9 [facility] Interpretation 2022-03-26 23:58:33 Test Item Value Reference Range Interpretation Comments Materials Received (test b3ceyACrWFXhqJYbNhKc code = 9973) NRDcKHGnp3ctLUVkvYRg ZzEwMzNcZnRuYmpcdWMx BXEbNdQms5bkv135tVDe v9qsNQZnExI2qRZpNOIp bPSxW622KMCuZJozx5cp c5BfNXSfqUTup0U1QLFI jjmotGw0sDpvJ63zz9Q7 QyrdU8bjTIXmYQYfN4Rh ZJ7vTPPuEqs7ING4PXC7 JYUlJNHtJ5AuYY7xNSBf xUNaWLc8c5lulShoUJGz LUK0r1mlJPduhjVsYR7i eh0dvOj8k3mxukDwYXPp BKUylLSHNKFuT7VtoDfh Ea9prFo0cTpeEcavVFQ9 Jcn9CZ9zpb94ntd8eCka SEJyxjmfSvV8RVfmHXPl grgcMDb8FUcsVUWhhByb MFxtYXJncjcyMFxtYXJn zUR1ZRUwwTXfF2XgLSBw WAvvBQUfnxy3EdLuLz2y jVPnuIpqBRqee2gps8gs fVRqHpr8MPCkVrOiMrvz KIhsw5Agk5mcZGUozq6g RWD0lLNnhMtko5H5eZUg ZXRuyYEivuYsYGCmle56 aMSimJTvdTWgoq0treRk jZHvbGAdDAL1wGJozjCz UNEucHSyATBhNW1dnHTd NXMbvK8uvvhiZLJkWgRw llisRJGneFbuobSjSv6f dUbeORK6MXneQ3dhgO6h XuB4VZtsJ4siiA2pFCx0 WFijsOC3QYHbyK5bMI3c ypwbw9wbKqSlBY8tkyng m6xgRyNhJO3blee5j3lf SNH2PYoiHGVvYcC9gkE1 NDBcaGVhZGVyeTcyMFxm c857FXZ9JgWnZWZel0Op Q7XbeGrjD80omIumM62w TWQsrTtidI9gkRkjpT3j LfCePnOqZDq0gx17CFm4 ifdzvIyuWYo7kpKuALFb SCH2VBCswRTsXCAtD5u9 obVbXTDwOJQ6CWMpyGCj SXBgO6w9qtJtSRZ2BSf3 cnBhZGRmdDNcdHJwYWRk YjBcdHJwYWRkZmIzXHRy xYYxgANftJVfaR1ptUvz AKCxvNHntG8pFNT5XBHw cmgzMjBcdHJoZHJcbHRy rv74VBKofdAunGOrvZqb cCVzSQG1JBTaTIHlIBVz FFM2FDFgGvZcjyZeLKbx bGJyZHJiXGJyZHJzXGJy LYD7CAKoFwLfafNzPVgb bGJyZHJsXGJyZHJzXGJy YME4SAZmHaVhdeWzUHiv bGJyZHJyXGJyZHJzXGJy RES8COMkFuOarlQmQJgw bHBhZHQxMFxjbHBhZGZ0 V5dhiRMmOCXqJMoaxPYo UICqY2acsHAcTAmmVXCc cGFkZmwzXGNscGFkYjBc W3gdFANwFlPyF8EzeSb0 MDAwXGNsdmVydGFsdFxj nWKkFQJ0IINnLKDqKACs LFC7BLXwJcDnwpLhKHpg bGJyZHJiXGJyZHJzXGJy IHL1EAKhSjZltaGbOIlz bGJyZHJsXGJyZHJzXGJy AQO9LNHpOkRziiClMIqu bGJyZHJyXGJyZHJzXGJy OMC6ZXKcAvBtdfMxTAym bHBhZHQxMFxjbHBhZGZ0 J5awrYNoTOReWJarfSFo VUIwV2zddGHnTVxuTWZl cGFkZmwzXGNscGFkYjBc K2ewAYWyVbNjJ4EzuRs0 NjAwXGNsdmVydGFsdFxj aSJrVRM9WNMmKAJcALMs BQR8UXJiQuMunhOiUVry bGJyZHJiXGJyZHJzXGJy KPQ8CWUiAjWamjLjDDnw bGJyZHJsXGJyZHJzXGJy ZLY1VANwBaQstkMgUKtt bGJyZHJyXGJyZHJzXGJy QFI1DUIzNiNnqtYwUMod bHBhZHQxMFxjbHBhZGZ0 Y6mzgQOuXKOrEElkuAOy QVZhW9povMQyGJuxQDUg cGFkZmwzXGNscGFkYjBc R7erMGDrKcVtB0KkcFh4 JuDqXUQwosSqsK72Owgm y8DtEXTxHQL6YBxrWNrl bFxwbGFpblxmMVxmczIw JQtetfkeKFHdMMgvF3su NeGfBSCctBtpDOzfr8Cg XGYxXGNmMlxmczIwXGIg DXXvDAXmaW9uEvfaR5Wp vW9oNYrxRudxL1jkGSXq b9IkrA6jREhzuMYrjmai MVxmczIwXGxhbmcxMDMz FHafJ5pwXyIaCFWyrLir UHrai5MgKACuEVPvRrdg blEgYFs7swCsQKPgpBuc yBLlEQfobxQylRhdl3Hi ijSszYjkKAVaKZp5vcLy ntuctSa7qHEbqEdqFVYe mEurlX7rCaAyPyOfKYbj bGFpblxmMVxmczIwXGxh ghcwKAWeNNsbP5tqGhIe WZZhfBleICnaj7NxBSLj GDYtXarytaXzDJHnB56w bGVjdGVkXHBsYWluXGYx XGZzMjBcbGFuZzEwMzNc aGljaFxmMVxkYmNoXGYx QKdtX8wiAcHzE1JfNEBs LeQdhPBmH3mrD6VvkRzc YXJkXGludGJsXHNzcGFy CNR9gTKtrmKhyQZxdMOs OMQbLEiuEXJ1pXJsyhko hRCgnzhjXVxdzqR9IITl YWluXGYxXGZzMjBcbGFu ZzEwMzNcaGljaFxmMVxk FxJfNILfGTfiR1noHiXc S5WwTROtJpTxDiVVVNCx aXZlZFxwbGFpblxmMVxm czIwXGxhbmcxMDMzXGhp P3vuKsIoFOYyjSwzHMbk t4ScCXWfTZVvZhtvruLy MAo7ahHoFDJxwJzmzU03 Rspauo50OOPda7klOEUm C0XabGZnEOAmqPFdPRue MDhcdHJwYWRkZmwzXHRy cGFkZHIxMDhcdHJwYWRk ZnIzXHRycGFkZHQwXHRy dZQnJWV2L6s2xiQdJQPt TMs4cuCcWDAvMbVwcVHg DHO4KOj8FsurmlK2aQRq E6l3SkqcgrStJNynqPYv ql69AGIavhQvyRYfoDwj tOOtXTF0OQEfITVsWEZd ZRB3UJRmLrFmdpDzJBgk bGJyZHJiXGJyZHJzXGJy PSS3HFVgGlMkoaZwVNhi bGJyZHJsXGJyZHJzXGJy NBA7TJOaHxZihzQjNQrb bGJyZHJyXGJyZHJzXGJy AOU5LDGjOqSigxIxWOdo bHBhZHQxMFxjbHBhZGZ0 I8huhHWxMHYtAEuulTFk SGNgU9myqEElXNgmFYBk cGFkZmwzXGNscGFkYjBc N4clUQAmJgAfW8KesBt2 MDAwXGNsdmVydGFsdFxj aEVlYPC5BRKjUSHpVWDa LUE2DNWnFyUfixUjPOit bGJyZHJiXGJyZHJzXGJy QQJ0DPHsKwBqkfKkNRyq bGJyZHJsXGJyZHJzXGJy IRE2PWWsBhKrklNhSSwm bGJyZHJyXGJyZHJzXGJy AFY7YTHzRiJquzNgXDsh bHBhZHQxMFxjbHBhZGZ0 K3ngqTPyUIVsDTqxfZDb FDWnI9xkvKXvCWnlHLBw cGFkZmwzXGNscGFkYjBc O2xeLMKiJcQwD8LneSf8 NjAwXGNsdmVydGFsdFxj vHEwBPE3WXWjHVXmQXFu QGH7LCWyTfNshzSmMXdh bGJyZHJiXGJyZHJzXGJy QXZ5IJTxIjLxqzOxEMko bGJyZHJsXGJyZHJzXGJy MOS0XOPaZvGjfeVzOApg bGJyZHJyXGJyZHJzXGJy FGV3RPEwOsThnqYeNDcx bHBhZHQxMFxjbHBhZGZ0 W9txsDZjLNMxEPowyEXn QSRaO9ectFBiIWggXDDa cGFkZmwzXGNscGFkYjBc W9tuFJRxIiEqF0KorIm9 VgRbFLPtofUgyB20Wihw j7QxKFKrVBN0OXqdWPpf bFxwbGFpblxmMFxmczI0 XHBsYWluXGYxXGZzMjBc bGFuZzEwMzNcaGljaFxm LWzvBlBtSARvFAlmI4yu HdGoE5JrDSLmYeXwHT9m J2DuAmBhEme8NJgqYKZ6 ZQAWVKWwMRMWW7TUMowb DGSMC9EqoJcdcT2gYmWk TnQfOAriCM3nUWEuD3gq rTPyYAMvCFIyP8qqPrPk pJ0fmTuxFEyyRlMmRuGh MFxsdHJjaFxjZWxsXHBh jtVusR77Wqptd2YdHPYr SLY9DHmkCFhhvStojDRv wjlaOVjbnzW5GQTnGQae XGYxXGZzMjBcbGFuZzEw MzNcaGljaFxmMVxkYmNo QVUxTQcqU5ijTyZwS9Hc YPFqIoKqNPBiQy2sNFPb XHBsYWluXGYxXGZzMjBc bGFuZzEwMzNcaGljaFxm YLmdWrZqRAGuRGzaK6ru QnQuF6NsVTNnUnNuyZEd G9qyN4RioKgiRMXtQJvs oAVdXNNljCRkUTM5aMQo oeTifXhutPbqhW0pLkVj ZnMyNFxwbGFpblxmMVxm czIwXGxhbmcxMDMzXGhp Q4kiHzAqWNNqzGlcVTid y8JsBKOfQTHnWgdggoCr IDUvMTEvMjAyMlxwbGFp blxmMVxmczIwXGxhbmcx YRQfMCjyC5tlKaSnXHVi zUmpUVmxv5ZhRKBmSZIt BudsnmSrUAq8piVbKUZf jWbhvO61Cpewhv79KKWj rvDip4ZjMXJkPRX0OIcj MFxxbFxwbGFpblxmMFxm miL6UYGeHNwzAGVgRNUw MjBcbGFuZzEwMzNcaGlj aFxmMVxkYmNoXGYxXGxv V5xgAuRfKtDdIXubTCQ2 Addendum 1 (test code = e0slkPJmLJKdyIM0BeYm 37) PDFpz4utl8RopBWjyMXn COkrkAJmaeEunt29yUC9 tE81RW7fGAMdYtH7TOKa ylR7Iob1AJRcYTTdwSZj O757l5zfz8gqruYdzVH8 SGQzSVXeZ3QqGN2vBTJi wTJlT43ytDNbRYT5ZEFr PNQicBAlFIJdONV7HIZz eOIzN8dcKOAoRG8afaha YPoxCSgmONKxmWL3VCEu xILlA9XiVTLpUNwoRDBf wre3YlAsSx8drDSwiMur MFxwYXJkXHBsYWluXGZz QnBiT6VaQA13lIRjWZYx NUSTWLJhVOV7KBb0FJAm CUQGMndvJKWEZO4DX4Wn MBMnHGQQJKVll4rwBAJ8 HYXuq63qTALmNe3vXEMl KTpccGFyXGNmMFxwYXJc zQn6AwZssHxbXsNsOXLh BGEWzSGbicqibd4imLmy rbuah0KhG7PyYjyzpYE7 IHgyOlxwYXJcbGkyMTYw LOQeJJiyEEbzpD7yEIKo IEJpbGUgZHVjdCBhZGVu c28yfmihZX7wKUWgvvCn IU6tIKCqDFIvicKKauAq KUrmC76rghR5XByjYJ30 aWZpZWQuXHBhclxwYXJc cGFyZFxwYXJ9 Diagnosis (test code = j5afuILqPTKnhZL1GlWu 34) QUBce9aqq2NruHYwsWTy ALsetYZifbMirg02fZK1 rA31ZU1iPYMpWcX9VJDf avG8Hpt7NLCkMCRenXNm D388s5bkw2kxyiVmkHJ6 RMHzHGXdP5CaUO8hFPSa iIMyJ59uxCFnLQK4GELg FQQsgXZgPCMgMQN9TQGr tDDnV4qyLSQpUV8fxbqo WVspDNzrCYHnxNY8QCLf pTYjJ5PbWOBaCYpkMBVe bnz4YhHyZo4vvRJyxIah MFxwYXJkXHBsYWluXGZz TqOlE5KhPW83oSZqLGBn XTCXUFAnSIW4VUp8PIXh OEJBNcolOTLLUU5AI1Pj ZNUrTOSRZFXlq2aiYSD2 EGChe72qYRUmXo9nMCJa KTpccGFyXGNmMFxwYXJc kGz9ZqGvwFsoTuPdGYTl QTxkyzYnwS2hj3l1gVTj RJYhmgYnueofKA9mt6Iv NKGoI75rlpCcuGIzTCXq Y8Udh151EIVshkcjoBVt NjBcZmktNzIwXGxpbjIx KaFpQrTcmUdvTOM4gl8c BZgcLalgaa4szJGrmFoz bGluaXphdGlvbiBhbmQg xzErU4InQFUzyMIixGqv ZXJhdGlvbiBpbnZvbHZp qxiebUCxON47QWEwGmPh EBYxPR9pOSFnr2UbZCAl le5zGW8fCYDiVFGvv68q HZ00KIOtDGrtANZvXGJg q8Mja2x3DBPpNaXdI40e KFBlciBvdXRzaWRlIHJl vB2rhPezjFWaJZ1kEJHu lS6lmUKtr3WtPAUmafZ0 nE2jxmMhwtQjDN61MKtl LzEpLlxwYXIgUmVzZWN0 iE3eUI0igeatzsFpDJXm SEEtk6EzgODmy6ZfMYTk xiNPmpVhuIXed9KuxZQl c93etTsyBj77SVwkoYLs f0ClMmhbQWBzbSQpJAvi DpMhGPYaYOzrqS20JeDd Ds1nWXGuCB81PMS0OCYh xU3nm6e3PQLytjc2QEMa SHlhbGluaXplZCBzdHJv xOKgBORhq6keXdNoOLBq s51iBKdjJAJxA02rvRIc dCAjMilccGFyXHBhciBD ZxHYsIXnzhfpkt7qlPyp gjmuj9KjG8UnWhmpyCG4 IHgyOlxwYXJcdGFiIFRv KFYpYXPaH51kDFWpyYIo VnlqJ1jesGE0xU5jc8v0 SKlduGAhl8Jmt6UiWVMl BCDzIQOfBZJrlC8jtIvq XHBhclxwYXJccGFyXHBh cmRccGFyfQ== Comment (test code = c9ookDCxSDPbbJT0FmGy 9835) PLYud8mzl0YepOHchLRj RZsttOQkqpYzko57lIA7 sV14AC6nWIInSbJ1IEBf mwV2Rbd0FVGxOBNdpIXb E790j4lkm4spkqCwjLI2 sUbxFZRjzojfOaD4JVxq PGJeomyuFOi9TLzuKGWv oLJ6QOQxuEUpY4WtJMRm DA6htwn2OZE8XBsoMUTj IqN9SYMbiAYlZPLaoYne ZFdav266XLE8RyGaJQHf diCumVaqwQ3lGgUbIQHg BSoDjVWyyON6WDUhcD1b aX6diXfrxE8jsYWejSBj qWVntQQizyYqz7gruzH0 vFX2VQPjFUPghGScwZXb IGNvbXBvbmVudCBpcyBu QIpfkXs0AYFke5PzRfI5 SU2zQUOmfprwMJgdwOFp QRWbTYG2mRXrx5Vvs94z QIWIBcqiSUENPRV9VUBd UCEchJ9bTNIua242cMGc pOZvwWLsLDR4pV3rHPDV SzEsIFNPWDEwLCBmYWN0 q3XyLeeEMJApSVOsriLu A5LbWaQhQBDZVGD2BPtg V1ooxTxzpTGarkXbR7Wl MCShN9kmns7qfUOfCQLk fZOySGOjtkXXoCKzd8Pk hgNbtLBkwM2muF6gsmCm nsEalOvca5Rlh4PtKXGy GT8jV19pxGWeX5Jdztfk BzT3OKv1YFzpKAHeFEdo QQ2rsW5xMKZuIFPbMBLz uFL5DiBVyIAaUJlwRcFh RN38gFKhMRYaZXuwx1Cl cyBpbmNsdWRlcyBhIHJl ZGO7xMYkJJ1uQOAfxpxv ysYcnSQss1JyBVN2bQEl vNHuH5NtikTuphWyRPVh AX6pT75vjeRsR7SfIATv yHWhbQ5nYFK7R5ahESZa PN0yRLV7CMHum8Wrqp64 iyCdNPkjj2SuVVDth05i TlVmLA2xqqadn72wJWwi xSmxweJbA7ZrddTcJ9to wcjkxh6nDZKdgjknASAs JtC1SEC7Hv1jjZAfJPAd nX27fr9haHV5w5DqIA8p J9VzRYG0GYqzPRGtogMT z38uplWaAWWyiOXqbfBy ZFAdhgAhIe7tDUGufCsp rTMpSLRif9WxpVmldn9s cGFyXHBhclxwYXJ9 Disclaimer (test code = x7amzZAfKFAybHNvIzUh 9844) CAXrRMYuw8glRDPhhLPs ZzEwMzNcZnRuYmpcdWMx QGAdWwCak8ntl556gNXr b1jmGOWjAoZ2oSYaTDYh bZUpA783YVTxTLzea4bp x1IwQUAqqXEaw6T9FUOZ dnlhqHz6mZtxP52ok2J3 DzapN2dyGEUiCILtD7Zh VW3oWTDyKeo6QXE0EPW9 GLBzOVKqN8HzSJ6xKLHp aYMyFWx0g8rbnPvlBNAf ISJ1a3irZSvjjvKyEX2o st8deXa8d7yuvsRgYQOq BMBqbHUPLQAeG1KrdLdt Uo6rfCr0lMbiSmgqKRT8 Zei3FK6bgo98tyl4gXhv QMRapdfrDbH6FPyePYRr pvknBOw5DQgtFVLviRE2 YWKsbPVeM2SuJVYoHG0g bnx7AOY1EPfqUZYjBdQ8 NDBcaGVhZGVyeTcyMFxm y298HKP1PhLoCI5xJ9Vy k5U7hN2vgHXsJCPokNCx SkXrBTKkye0nfNIeAQjw y6YiGYV1vgH1pWAkoWJl QDHsXO50Evrfy7HeWtcf IXX9XZHumcZnq4Xie3kq XlDeydJrP4sgJ3UaWJVx UJUfDJViOnDowzYzd5Vd n2IblEKvaUb2x2bgWUJp IIAzkNxvc3cgMJL1UYTy J0Y1eJHtu5chVCjoGMWe cAQ6teG5HVIniAIbA1Me xY6qUAJtGW9ptdl9t2il FPF6BJokZKQxOdS3qpQ4 NDBcaGVhZGVyeTcyMFxm x029YMZ1SjUdSTFtr8Lm I1RipKufG07fuLfeL42m VDPotQtwqZ5ywAfebB6f ZjBcZnMyNFxxbFxwbGFp nrbvCHfabjX1KEpnquqs UTXqOLgyG6zkZdGvGXMo lIazPVnry2MlWSEhBVRa ZfvazqK1GZRTd96tKRKu k3MlTNDlcE2ifSOmJMms woOkwSM7AYzdhhKdOuXq ygCpGJJgzW0hJEZuZJ1k XAErlgUivy3txtBkUREn EYMqZ7TkdyxfeHyjdjXf LVGwtg9odjVdPVD2BJBR CR2MVWRjKPPqk84nLIUn nRtpaB5skEVuneJpUVFc f9TtvL8ooFPSROWsY7mo PB7eUYfvd7TiyJBkvMSf lLR5DZIcx2OkHaYjbcSa wCFqfUNiQ6LylTnwM9xa XDQeGRUadyGwgZXkt2Yj WPGvzCD7aEQhYI3BGnXA r16bGRNkRNSTwhJmUREx lKwmsJF5qqN3nK8gXdPZ ZiBhcHBsaWNhYmxlLCBj s491iz5fntI4PWLkIQJy dtzko7CoTKWsPIOlxA85 VMWbRLUaum7azvzspNNz mpYvI4Fkoxy5aC7wMYLv YWluXGYxXGZzMjJcbGFu ZzEwMzNcaGljaFxmMVxk IaVfVEQlEAqgW1gzYmJq ZnMyMlxwYXJ9 [facility] Outside Interpretation 2022-03-26 23:58:33 Test Item Value Reference Range Interpretation Comments Materials Received (test c9nkzPBjVNOqxFFxCcPk code = 9973) BROfALKqn1mdXJXcxBYh ZzEwMzNcZnRuYmpcdWMx YPNmIbFto4foo585yDHv a2uzXPYnRqL0bDOyOCJy cZUpL305LMDiPOmyx3jt k9OfJTZnlIVyp8E5HAFT walfzWi5eAunD40kv7G1 LfbfQ8siYXNvFKWjY3Pd VK3kDHDdAyv2BQC8IHD8 TLBgKQDjS3YsQI0vEKEh iIFfKZz4i8ugdEwhFMVg TNB7j6zhASswzhCpCJ7g rm9srIk5s1oxbsBzYINs WKVbkTIWLUWiB4IudUys Cp1fxTa0fGauWnoaNMH5 Mex4RY0wiv99tht7pWex DNXkbnlmVoX7STooRCKl jxgpOIo0EJezIJYaxIde MFxtYXJncjcyMFxtYXJn vPZ3AEKnaTKsT7KcWDQa PQuhEAVwwte9YsCmBa2m tXVdlQdzGAfmv4dkb9nw lCPaMgo9PIZfGwDyDmzt YBccq6Gmj1wjEUEfxd7f NNG2fACqdXlip8I5wPMn NIVqsWSitsJhVHVznq89 wETkwIOyiURukx9hknFt yWWdcIBqNQL4oYRsjvAd IREvjZThANItWG0dtCPs LULezJ6mfywkOQFaGuMm bgjtVDAwxTsuliJkZj4l eXufNBU5PIbjH3zvjT0n JtJ5UTbxQ0jrsQ3pEVg2 BRtloEG4XXYzrL5oBI9k mdbcg2lnRpAnMK2pmwhy j5lmZoGiGA0wvkq5u2zz KBR3QEitCDRhOiT0usP9 NDBcaGVhZGVyeTcyMFxm d374GLV4ZiFkTVZfs5Or P2SyxBmlW16nrYakA36h PBDgfPdniE1fqQxajG8k WdFlDyPbXOb3wr11RXy9 atflwMdoADz4zaXpSDWw KGR5OIKprENjKPZfA6f2 paBwJJRqOSC1GADkyRJn HDDgD6p8lvSjHPD7GKb0 cnBhZGRmdDNcdHJwYWRk YjBcdHJwYWRkZmIzXHRy gILkeERzeKXzpH1bqYnh MLCmzNFcwA6tWTI1MAZs cmgzMjBcdHJoZHJcbHRy ya74CNNirmCcfIKqrIus iDMdLIJ2IYOcLUHwMRKp OWE1BVCxIiMshxYuPXbr bGJyZHJiXGJyZHJzXGJy PRC5IVTnGcPjkoBlJLzb bGJyZHJsXGJyZHJzXGJy KAR5GLTpUcRsswWbYQcr bGJyZHJyXGJyZHJzXGJy AVB4JCTkScTpkhFxHUtn bHBhZHQxMFxjbHBhZGZ0 A4cnvMYaNEErLVxnlTEm TCTnS4jdlNBwSAemULJp cGFkZmwzXGNscGFkYjBc I2ddZHPmMdYeK4TroDc1 MDAwXGNsdmVydGFsdFxj pBHiAKP7TGGwBLTjKAVm TAF4UJGwRwCtoqRyUJrw bGJyZHJiXGJyZHJzXGJy BNB6RERfYkQukeEhRFqx bGJyZHJsXGJyZHJzXGJy GQD0ASQkBiFtkyGuHBci bGJyZHJyXGJyZHJzXGJy EEN0VJDzMjWpvjZkHDjs bHBhZHQxMFxjbHBhZGZ0 C9mvkMRbHUGnCShpoKZo BOFhS8npaCJsTYvoKRJm cGFkZmwzXGNscGFkYjBc K2mzZDQbZkKfR7JubBb7 NjAwXGNsdmVydGFsdFxj fKIhDHD3GEJkUPAvLDOt XGN6NCMtPsEntpLlKHlh bGJyZHJiXGJyZHJzXGJy HHN6NZKvIrDflaEeBZtm bGJyZHJsXGJyZHJzXGJy BEI4XVJmSpNeuxNkOZgj bGJyZHJyXGJyZHJzXGJy DIL3WYBqNtKmfgMjIMsz bHBhZHQxMFxjbHBhZGZ0 H3cetYSdCMLhLNkcrNJo FBIgW1lvgSKvKMysDVMo cGFkZmwzXGNscGFkYjBc I9rcFJExZtZcB6UvjHm5 PqMtKSVxtuFblI86Eupw o7BaDXIiCWY1TSsaJCxl bFxwbGFpblxmMVxmczIw EVvyxfwjPVMoORfwO8qx ZyYuMBHtrKmlEPgcm1Ps XGYxXGNmMlxmczIwXGIg LMKfUXOxoJ4cEzyyM2Tp lP4lUCmwHuwqS2mvJAOm c4CvkN2sIOnxbNWbmhpc MVxmczIwXGxhbmcxMDMz UXuiG2tuEzBvDYBtdDmc SYlkh6ZiPKUwLBArAzmn rpCiSRn1uyHtVBCzdXrz tQThVIrbgsWsxCaqk6Bo fiGbeWbpZNMnAGi8jjDg qtxefLu0mLEvsYkmNHSz lKmgrB3tCkSgLbQfYWmb bGFpblxmMVxmczIwXGxh tsqfGOPyDDgkP0nyLuIw JJLtvGjrYTubo0FzTGXz UUUxNqgrbrUzZKFlH74l bGVjdGVkXHBsYWluXGYx XGZzMjBcbGFuZzEwMzNc aGljaFxmMVxkYmNoXGYx REtuX2hzNjAsG9VbKCTp BjQhpPTrN1gpL8GrdCdz YXJkXGludGJsXHNzcGFy CPG7iVUwntAxnHYnrQOs BBWqYTpeYXH3kFKzvrcu lGRsbyboRUjngmM1UVWf YWluXGYxXGZzMjBcbGFu ZzEwMzNcaGljaFxmMVxk GuNdDHHcQEdnJ8koZtXe D0CtDJDdFzRxJdJXGEIu aXZlZFxwbGFpblxmMVxm czIwXGxhbmcxMDMzXGhp Z9fsZoEyTRGvgLqoASgg h8KsVRQpSWXlDuwsooYo VIs0qnQsAZVzlHvuqS81 Mrhrso99NNRvo9qiCSWu C8WtfANaJWIinPFaMDxj MDhcdHJwYWRkZmwzXHRy cGFkZHIxMDhcdHJwYWRk ZnIzXHRycGFkZHQwXHRy vJWjXYQ8P7p5kzRiLCHk ZHc8vkZcKFWdWsNbjOEi UUR3PCl7LmtabwI1sHRo A5a9HlftphRjXEbjlZEd rz17XYIgwjLeiGJlgVce zFQySGA1EDXhXTNgRNAi BPE2NEMbCeVpefNvTApq bGJyZHJiXGJyZHJzXGJy PVG9CJKzQgMkmvWbFFrs bGJyZHJsXGJyZHJzXGJy UCX4NLYlKrNmivGeCCil bGJyZHJyXGJyZHJzXGJy RPY4MXXlWfCkfmEjJBgx bHBhZHQxMFxjbHBhZGZ0 Q7tauPXoYGGwWPxceHVl SKUpF3gzgXZqFUnvULIp cGFkZmwzXGNscGFkYjBc L6weAYZoFpZkK7RhjNz0 MDAwXGNsdmVydGFsdFxj fIWkYTL6NZSgMOLuSMOs TCB3HLNqQnUepjYpIRab bGJyZHJiXGJyZHJzXGJy CUP1UKIpUnLndqMnGXja bGJyZHJsXGJyZHJzXGJy FKH2VTZvUqGwwpSgMEhl bGJyZHJyXGJyZHJzXGJy HSQ4SBDlMhUzwaByMAbv bHBhZHQxMFxjbHBhZGZ0 H7bjsACmHBVuVHidpMDp KIKvS1owgTAtWEcrFUYo cGFkZmwzXGNscGFkYjBc Y4ncHZEsLqBzP6QtcSb6 NjAwXGNsdmVydGFsdFxj gEYeXKV3PUAaSOTiKJHm AII8XKXiXdBcezFvXUuj bGJyZHJiXGJyZHJzXGJy CLF0IFLwAkRkhwRzOImr bGJyZHJsXGJyZHJzXGJy XQA9DXGcUiSsqmXjMXsu bGJyZHJyXGJyZHJzXGJy NSG5XORgSfAuwjJuTXnk bHBhZHQxMFxjbHBhZGZ0 Z8iafDBoFWFuENmdzSNk SVVcM7ovoDSjKXpuGVKn cGFkZmwzXGNscGFkYjBc A9xeFTJoMoXzK9QzrAj2 ZkTcRNMykoEbdR66Icec n3HdPFJoYVF9GTwiHEbp bFxwbGFpblxmMFxmczI0 XHBsYWluXGYxXGZzMjBc bGFuZzEwMzNcaGljaFxm NMfkByBwWYAbAXwzI4rd OgUaW6EeBOXrOeNvPG2a V1WyMaSxEie7IVzfDRT3 ABZPBRZwSBXCX9KCNvwm OWWSV7JlrJnqyC0gJzHe GgQhYFssVK1iGSCbI3dw eFKoOWOkRYFwQ0tqEiNz kX6wxSabSNwsRpXiXiMa MFxsdHJjaFxjZWxsXHBh tlOryM28Rmvgo5QlVCYq WHC1QFwsWZncdKtsdQWd uqomJOlvhyD9SYCtCBgt XGYxXGZzMjBcbGFuZzEw MzNcaGljaFxmMVxkYmNo HSMeOImpK4naQlWyN4Rf TMPpOsByEQTyBs0iKLZg XHBsYWluXGYxXGZzMjBc bGFuZzEwMzNcaGljaFxm GFpjAuUnSREsETsjA9yb FrZwQ0QgRUZbKxMvkSIc S5mvX1IdvLjjPNCgFHmb cRQrYKOpiBOlXCF9dEYn hhSrfGgttEdeeO5uDxVd ZnMyNFxwbGFpblxmMVxm czIwXGxhbmcxMDMzXGhp W9miRpMuLPSubSxgTJhp l8KqQYKvATThZccuwnDf IDUvMTEvMjAyMlxwbGFp blxmMVxmczIwXGxhbmcx HVAiNRdyU9grDrJtPVPd uTucTWrcq3OrELQjYUYn UreivzScBIu8fiGgBYKi vOzoqF62Wqoaiw78IPHl dxIax8TpZFOjPTQ2YTji MFxxbFxwbGFpblxmMFxm kmV0CWSnOKfzBVGvOLSi MjBcbGFuZzEwMzNcaGlj aFxmMVxkYmNoXGYxXGxv F4arIjCiMsLhDOgsBGV4 Addendum 1 (test code = w2iybOJbDJZyqEE2DvPd 37) PBZvl9bpm5LelJBlfRWq GUqurGVqcnTuhc42lLR2 hD44KR9wLDSyNsG4GJTn alU7Bld5ZBMxCUTgxCMo K660f7qgf5plckTlxNQ7 VZTkZGQoB2JsGS9eSERu ePYkL01luNRyXVL5UQJy ORAmgPSfKHUsUWB5DKYi jAZhJ9iqRXPcKN6cwfrc ZDzlLYxnTOWyoSC0JWGc bNBiN5InAPLqPKnfYGZp fic3JmAnHu0mtLLhkGhi MFxwYXJkXHBsYWluXGZz GjRuN9PbCN69tAHrEILd RNPXRIWsNYD5JIg7EEOh YYSOKzxuXSTICG4JP6Zo VLTnRPFXLWPjg2kwSLC1 WTZfp55pRUXxVc8mTFZb KTpccGFyXGNmMFxwYXJc jDq3KdRjbAttXzXoJBRr AEIQtZXvvhdbpn9lnWhf ujgyf4FmD7CdCyywnLY3 IHgyOlxwYXJcbGkyMTYw GTIzPZgoMRtvgJ0kAVCp IEJpbGUgZHVjdCBhZGVu a48ifienFI2pRZWcroZh OY8nPAYhPWXhygDRddTt JGvjQ26dwcW4JTziXT23 aWZpZWQuXHBhclxwYXJc cGFyZFxwYXJ9 Diagnosis (test code = f9smzWHsPBSwuFO7SkDl 34) FQPuu9ovs5RwcPMkwDAd XMgvnIItcbSalu32mBA1 vU71SY3hHJOdJnG8CCUd tgO7Mis6KNOxIVLlrCGk H102d7yui2ymvyCjrOY8 IZExDPRaN6AiNF6eCCOq fAFmK00atNCcLLJ7CZBn CIFedIHkXCHtBJY1YEPk nGOrH1xsFMBaHR7gzsij JIppPNyiROKujDW0WLTu hAPuB7KiUTThDBmuPXGo qch3NqXrFm0eqAHenPsa MFxwYXJkXHBsYWluXGZz DcIuY7LgRS16iCZoNIWz COPCCCNsSWF1UYa0XWQe XSWTGheuCZNDRN9JD7Qt ONYgCUJEKYLjk9kbTRO3 MPWqu26nNPAbTd6jJYNg KTpccGFyXGNmMFxwYXJc lGk2OuMvtPinMuVgKCWj ZGjpxyWgpU5ax0z8gESm WHYnqpDtkwkzQW0od7Wd HAZmR37ipqHumPKuXTWl Z7Iab399LCFdzpzedOCf NjBcZmktNzIwXGxpbjIx FxLhDpAmiEkcDDW0pd6v XGjgMicfnt5khFVszQkf bGluaXphdGlvbiBhbmQg hcVkZ1BhGCCanNHayGjt ZXJhdGlvbiBpbnZvbHZp gzsjpKRlJJ14TWDlIlMs BVBzMR0zRPUgv4IvTFTd pm0jNO1nMUBqBDEsw27d GX96UKFyJRpxHZQuICFy t2Pob1c3XJLsNrYoJ87f KFBlciBvdXRzaWRlIHJl vG3tgPavdXToHV9oWKJg eM3wdQFsf3XsNMWtrqF5 xV8oqgYrsgOrGK48PNac LzEpLlxwYXIgUmVzZWN0 uX7sQY4brjuqewHsXUWq SKXjd4WszACeq1AdNMWx sgQGtfOaaBLym9FwqHLo k52dqDsrPg47TJrcjXCr y7VmNjpsWLKnpWCsJDln DrWmWASnLTecvH22MoNk Ny4rLWQhII14ZMU3AIJc pC7ny2q2BWMwsiv8JMXh SHlhbGluaXplZCBzdHJv xSClBRJnj5fhJzMdLGNw d72pMKngTWZoI89cpXGx dCAjMilccGFyXHBhciBD BaQElCYbllvdgr8haYzw uovor2IuQ9HiPylvhEA8 IHgyOlxwYXJcdGFiIFRv WEFcGGTjR24gMIJtrRTm NssnO9jfxTZ0jE2xf3f5 TCuhvXLhy7Txe9QcVYKe OBXwSGGyXXVqmD1ifKjr XHBhclxwYXJccGFyXHBh cmRccGFyfQ== Comment (test code = m8afuUYtQCLxaVC7KqGe 9835) SIVmr9ara6VhhFWfpCFp VCgfxDBamsXhmk88mXQ3 mP37DR2oEKEbTwG7LYMm ysP9Bye1UNSvLNYgyUZl D281p8cnu9yfwaRplBV0 hQmnFKKgcwklChT8XHho SGYjpykjMJq2XRjqAGFq fET3QYMmlDDyY9YfBHHp ZH9waln4BOV4TWyhFCLz QbQ4OWGhjRQaGEYvxXig CNume397FKW3UjUyZYJb huUxdGnbeQ9bJeLlICFh VNrZeTBjlRR3HTGceW6o xM7peAijrT6erZRfjKVs yHKaaKNslnRbz8dcilL9 vCQ8TJIjEFZmkGOvaVWn IGNvbXBvbmVudCBpcyBu MCzpjMc4YLBbg1CyTuD5 VS3eNVNwlzncYTntwEYo TOZzYBQ6fOGcb4Iib76p RYNFFufsJFNFKEH6MBAy LYHlkF7eCAUsy649cJZd eBOwpNRwAPY8fQ6hRTJN SzEsIFNPWDEwLCBmYWN0 u6ZdZiwXREQqPTHaumKu S4GgKcQpMFIIJRX3HCwz C5uaxPjfhUQivhKjN1Rh TCLjE5iypg0rsJCjJEZk rSVcTOEsmdIVwETgx2Xy xiJhcJCrkI7txK4nkySb kkUpbIdxe2Mnf4WqWLWa NS9gA83zzCCqK8Hfilbn RrY2ALm5GMfxZAMuSPrk YH8ooI4jTZMsYQNlQGQq uXX5XoIXaRXbNTjpShIn ZK91nVGhCDPoLTopu2Ej cyBpbmNsdWRlcyBhIHJl RSF7kENdFZ5jQCRlcrtt jfUsgKJez1VlJAJ5fPWm xZIkL3RpidLbutNdTLCb UE6fL77kcmTvA0RkKJWf mUKmwO0fWRN1M8pmLCAe CQ6kAXT8SMLog2Wktj04 wsQbQNmrz8PdNDIxh36n XtKqKP3nhbicx05cMWiu xQndeiRaL5XnhyZvE2xo wyruff3xAXDkfeowWULm KwD0ESD9Qs8hzRWuXMUz wT08yv9wgSV0q1YzDR6p V2HuPJU9HXwzLGEjgiTL v06yiiAoOYVjfMYujcGk QWQqjrUkXz6jNLLgjZpe zTCjSKTcc0AcdQfybf1w cGFyXHBhclxwYXJ9 Disclaimer (test code = s6ilkAMmEHReiNFmOfAq 9886) NLBoEIXyd9yuPMXxuFJu ZzEwMzNcZnRuYmpcdWMx MVEsCzXib8kpt652sQDi p9atMJUnRdV6gRZfWOEw zAEmG808ZREjHCmbe6pu u5ZaFFDbdPZbh3U5IFSI bpdkuCc8wYmxU81px7S2 YufuW2cwFKVjDBNdY5Fd NN7qPPEbShv0APG5MOP0 TQHiYEVdU0DnZC6fQVSt ePOmGSu5f4hrjIumKJVk KKP1l5yeOLqefcQiXE3n vr0tiKt0d0juvtOrAFZc BXAofGPFFUVwP3UffIlr Rk0rfSt9xRpxOsibDQI6 Ard7LE0dxg14ryw7hOrx ALOsydsjEiF4QUbvGHEg bmxqGRv5GDjlZZUmkUY0 KIUglHAwI2JtTCWxBC7k gvi3UTX6FIlsHZLaSuL1 NDBcaGVhZGVyeTcyMFxm y735JEH6LjWvWD3tX7Bs b9V0iB1efJBgGSPuvVIj YmAjLTKrgr2zyAVwEOhx w4UkHRG4vpS9dDNosGDf KYFzIM55Pegml0OdZsef LJU2KZReldJwm6Tox7fe BdOzgzAwG9qrG2ZyNYVv OTCaQWUyWaSpecEkm8Jb y0OrmDQtdFr7d4ysRNIk TSIwgXxbd1qhDFP3AOLt H5B3vQJqv2ceDZlrFVAj uTD1czQ8ITJwvAMxL1Xq uR8zBGHuCX7jplc5b3ah ILH5IZkbVOCoCaG6psF3 NDBcaGVhZGVyeTcyMFxm k666GLF4HvBnCNKtm2Cd P3RvvEdtA47yyCukE28w FHZieBwrtX9wwDjvsO8n ZjBcZnMyNFxxbFxwbGFp vaehAXghwqO0MCixgjxx GYGjASqdE7ruQfLhCRHa uJqaOHenz5SyCCDkAIWc FmajhvD8HQCMu54mGOQa c5AzHAFwjZ7mvXDwSMru rfEtdTW0IJdvrlPoPyOl nfMvKUJwhI1cSICzZS2e XWAexpZoaj6ueoIaGWCp MDQgB6XtdvdvlIrywfLx WYUgnk2mlxMhUCL0LWMR YY9TJECqAZZur73uQRWl mSigdE6cyPIryfHuOJRv q1MgaJ5jnYOXMMXzE5on RW1bUIina0KyhMWlnXMe uKA6IPVsf4MyQwDqpnRb hDLquGHnH6DytJwhG8vu IFQeOTArqjYloQAis2Kw KQPiuBE8lXRsDB6OJkLA i22kQYGlTOWSpcSzIVQe aLqakRZ8ieB9oC7kHfVE ZiBhcHBsaWNhYmxlLCBj g727hq5tehZ4JZSpUKAd jzagv8JpAQAnZLXeeK70 WJFkMPChbm7wngeauQZp roLmP6Ivbgq7hN7wUAGe YWluXGYxXGZzMjJcbGFu ZzEwMzNcaGljaFxmMVxk WzPiWUAxHTmvA7cnBcOi ZnMyMlxwYXJ9 [facility] Outside Interpretation 2022-03-26 23:58:33 Test Item Value Reference Range Interpretation Comments Materials Received (test h1igoPKzLOBddHPcFwPd code = 9973) WSZzUWJjw5wzOPDfdVEq ZzEwMzNcZnRuYmpcdWMx WGZoFbKei8ftk643eMNw h0niJIWeDiT8mVNwKJLt iNLzT272DFUwNHkvt1mp c9KhSTWrnWWst2U3QJXR vtbuaLs5fUqlD23qr2C2 HlvoA6jhTXJgZJAjX3Wd PB8xDQJdYvh7CKR1UGY5 VHYdKFNoB2ZyAR7xCRTb rSEwGPa7v0gqvHpmYTFb WQC5i9tsYImfoeTnLP3p nh2zkBj8a8csraJjGRPk MGTepWYLAGUrP3DouQrc Pc5etFh6uTpwEpswCQQ4 Wms5TE9qwa03ubl0wJum ALAtshhfGoD2OZqgJLFu ndcnRJr3KBycNGLesYxc MFxtYXJncjcyMFxtYXJn hFV2KKPkiAPnB6YdJROw MHegSSGnvlz0TlTvQr5z oMPzaBxmWDrka9kfq1yo nEHeIjk9CTFmHnDoYjvx LCatf7Azy8foACKxou6a DXV4xJIhgHutr9V4uPAp QWHunPTmjgPpPEJodm85 lRXnlSRpbSBohm4mxjYf dZQwbMVaEPO5dZAileRr VIYvpUYqTLXmLZ9wqSLg SCPgoW3nbalpSHBjIaRo oerwZYUobSbrsiWbMn4o pEnjBDW9MTsgA3dgkO6h ZxH9MCsaL5pvyE5mZEd0 UEkfxXG0GGOstH4mIW7p iqmvq8odTaKtGV5nhvhs p1jtIaIdBZ4sqdq3s2xn KUW8EUkkUFBxUsL1usI3 NDBcaGVhZGVyeTcyMFxm w341JVZ9EpHtXRAcm8Kz D0XoxCbeJ93gxLzrD88u AFTudEumiX0afTgjmI5g FyIqYwWwBQq5tr19TRu6 qfnvtUidMSf6otKbJQCj OZF7IVXdmJNnLCCpF0c2 alAgIFMnJKE2RCEysSEw CWZtB3s0fvFgAXZ8EUp1 cnBhZGRmdDNcdHJwYWRk YjBcdHJwYWRkZmIzXHRy aMQfmNMuwWNxgX2oaRgo YLAfuXFnuK9tUBO9UBYn cmgzMjBcdHJoZHJcbHRy ew74ITDvgqIesDCgbYjr gXPyYSN9DSXqBWAnVQUv BFN0KLPmSrMvxvYuSUoy bGJyZHJiXGJyZHJzXGJy QQW8EVWvPjPsksWuFGti bGJyZHJsXGJyZHJzXGJy FLM2VJWyWrYgxlToCCgo bGJyZHJyXGJyZHJzXGJy XWA6SKIlNsYlaoQbAFnw bHBhZHQxMFxjbHBhZGZ0 Y5gmsOEbWLOoQQbpxXWf NBPdU4fbeHMoYBvtRNBk cGFkZmwzXGNscGFkYjBc X0lyUTGwGoPwO8GtjGi9 MDAwXGNsdmVydGFsdFxj hLWlBYG3PPZaEUTkNSJl BFL3VTXwNqNciwYdQZoi bGJyZHJiXGJyZHJzXGJy HAG7OEWaCiStnqMuPMng bGJyZHJsXGJyZHJzXGJy UJL6NIOhCsPytiOsYLzy bGJyZHJyXGJyZHJzXGJy XHA8DZKgRmMnbdGbBVba bHBhZHQxMFxjbHBhZGZ0 X3ogtGLcKFBtHBchjQDw LOGxV6wbrOLzJJntWYYf cGFkZmwzXGNscGFkYjBc W3ksAHCaOiEdI9RfjCy4 NjAwXGNsdmVydGFsdFxj dZTcIKB5GGQvBXSaMMGv EZN1VUQwYbCsywWgYDyc bGJyZHJiXGJyZHJzXGJy DOT0ISXuAjWrafSfUBqw bGJyZHJsXGJyZHJzXGJy MCG7VGNhTqTodbWcPRoj bGJyZHJyXGJyZHJzXGJy IME7OWIyHcIagrTjWVnw bHBhZHQxMFxjbHBhZGZ0 W7opfMKsAHBgJBnctYDh HNBvW4umgMRrPXjsRXCl cGFkZmwzXGNscGFkYjBc X8qxEIAtNaXbP2EhoPd8 GqBcBPOmlyFhsA98Bhlk u9FgMBEyENA6RAnnBNvm bFxwbGFpblxmMVxmczIw PPjtoqzsZYRcQWryW2nm XvUqCZIvvYwpOHkga9Yc XGYxXGNmMlxmczIwXGIg LAEsUCWkxD8sLfhxL7Et pU2oJGqcNgbkT7asMXPj h0ZcaB3jFFpnwZCvlzmx MVxmczIwXGxhbmcxMDMz OVdkY6unAwHkPRFilYte FYlsv2VdNPTxTBXiAcgc fjPxGSj0wbSfCDQvoFew fAJoXOvanfUomLfsw7Hs vpMysJzrXIAfKMo3hqWj oeohuLn4lEOliAgoCMEk fXyyhF1rOmDcMkOvQWdo bGFpblxmMVxmczIwXGxh ksdySZClLGmhQ2wlTkEq SOHyqOmkMDodf3YoBOEi JMGtQisowyEhYFGmV74p bGVjdGVkXHBsYWluXGYx XGZzMjBcbGFuZzEwMzNc aGljaFxmMVxkYmNoXGYx QGsiH5twHrXfZ8EgBXYr NwQtzGOeA7qnQ4VueBgk YXJkXGludGJsXHNzcGFy SOJ9iUKnjpOagSWvpFFj QEYlAJfeQKR9sAAhlien kNLnhbbtIJomutA7EFBd YWluXGYxXGZzMjBcbGFu ZzEwMzNcaGljaFxmMVxk CbJuFDDlGJddC7rtNhCd H2EeXBHtIcBxQiCXOMVz aXZlZFxwbGFpblxmMVxm czIwXGxhbmcxMDMzXGhp H8zmRwMrRJYeuIimKOze e0QqEYJcNSSzKsfgwfLp CKq3phTlYHWkzGleiG05 Ffvrng68BLKrp3njALBf A3JxcZSyQSJweFIzWDrv MDhcdHJwYWRkZmwzXHRy cGFkZHIxMDhcdHJwYWRk ZnIzXHRycGFkZHQwXHRy lCSiGCE6E6v5lsEwOMAj JYr0xeIkZBDuShUlkGVf SHX4WYk9VijjkdX1iPOz B7h4OwricdKhMLbseNHb ma06LCIptcJulMNdjGkb jSQyYOC1ZEYaFSJiQITh OHQ6VPPhGcXtdcWcVHcl bGJyZHJiXGJyZHJzXGJy LZU3IALdPoYoapVgLBxh bGJyZHJsXGJyZHJzXGJy RRJ7CCCbBqUalrRsAYov bGJyZHJyXGJyZHJzXGJy FME4OFAkYqRqdfMsAOzz bHBhZHQxMFxjbHBhZGZ0 G4tpkPFjWNGeNKwqxHYa MPDdU5xczNZuRUbaVDOg cGFkZmwzXGNscGFkYjBc E9edHQUmVmDsK2UwfWw6 MDAwXGNsdmVydGFsdFxj wWOvLXL6ZZJaCHJtKNBk IOH2DBXlHnWekzKnMKxx bGJyZHJiXGJyZHJzXGJy TUF2SMKwHkSnycStCCsz bGJyZHJsXGJyZHJzXGJy AGP6SHLpXmCfoiMrYOwf bGJyZHJyXGJyZHJzXGJy RFT5YLFqYmOswgIeRPei bHBhZHQxMFxjbHBhZGZ0 P0jwvOHwTBCpHLriiHDh PXOnJ7qscTXePOzdKZQo cGFkZmwzXGNscGFkYjBc B5xmYAGiAtSyZ4KdiSw9 NjAwXGNsdmVydGFsdFxj hSKdEMU5LHAfCZLbRXIo RMN0RNNsOeCumxRnHGnc bGJyZHJiXGJyZHJzXGJy GOB4CACqTuIwhpFrWCug bGJyZHJsXGJyZHJzXGJy YMV2CCPrDvVfdfLgCJav bGJyZHJyXGJyZHJzXGJy VQA6YJIrIpMhptQvOUdg bHBhZHQxMFxjbHBhZGZ0 Z5avkKQsLCFxYZuvtDTl PGJwL5rvgQYxQPqzLSDn cGFkZmwzXGNscGFkYjBc V6wqENOuQaFhZ7RxnEo9 HlDgGFNjjsDseI88Lisu c9KfZNAyWIR4MFzjOBez bFxwbGFpblxmMFxmczI0 XHBsYWluXGYxXGZzMjBc bGFuZzEwMzNcaGljaFxm XFsjIgUlYIJuFAgrL3mc ZyGsW2HmQRZmMuRyMX3p W2NkDrJhNhi6COxvSEJ6 GASEIPNpLSTHO5WKXehp WQDXN5PiwYmbvC3iHuUm VeMkXMbmLK6kFHMvM8fy rTYoAMLxMZSaA0mbFgGa oQ0lcPamTBhhXxZgPcKf MFxsdHJjaFxjZWxsXHBh bvWidM24Yzpjt1IqWPAu RNO0KJflXYkvfXqmuOBc soqbODhejmG0YPTySBmg XGYxXGZzMjBcbGFuZzEw MzNcaGljaFxmMVxkYmNo MFTiZTivR3ppUmIlU2Ly YDOdBzRfNVLyBg9jSZKc XHBsYWluXGYxXGZzMjBc bGFuZzEwMzNcaGljaFxm GRhlCuEwWEXbSIvuU9ju NuLlY4EdVTNeVvBpbXPk T0sjO9WkmExbFLGdTIde xXWiTOGpnJNuFCS4eMLm fbHncYfacUytpG5pOeOw ZnMyNFxwbGFpblxmMVxm czIwXGxhbmcxMDMzXGhp Y8uhCnXqUWMxeTplBXav b9XtIADhABPhPugimaWd IDUvMTEvMjAyMlxwbGFp blxmMVxmczIwXGxhbmcx ZPUkNOppK9bjGfLgYZXf iXdnYNosj9UwGBUdVTTd GcttwdZxQPj3txHkNNYk gIjasT76Eqidjo98SLXb yoOsc4OuHWShFPI6CDpz MFxxbFxwbGFpblxmMFxm ezH7LAEjMCwwUBRnOSLr MjBcbGFuZzEwMzNcaGlj aFxmMVxkYmNoXGYxXGxv Y7guTdVwZfSrDKmpEAU4 Addendum 1 (test code = y7oipJRpFLVllBW5SvBv 37) LDGil8kic1XyuIIenFCm KYhmxAEkwsWyry17zML1 oK88WU5pQWCgFsO9MILp bqU0Bxk7NOKiXBAhyLBl P538s5nab8evdsJbzST2 GAPfQTZpZ8MjGY4tDROf xDGjI34vtVBiCDU1DWJk EUYroSBrPLJtIHL8XIGu dYVtL2qgWKLlSK4nzxky UOrhVBztTSZowTX9XYHr zFOyN7WuMYInURstWGLy czk4QzQwGd8qhOEtpQoi MFxwYXJkXHBsYWluXGZz WjWjQ8WpMC20nWKcSRGd CZRRHFEpEOT5GIk9UQSm INYCHszwCMOAJP1GQ5Oz LIJuUNJRTQYsv3miCWX4 PWUns28bHTObGr2oNCIf KTpccGFyXGNmMFxwYXJc xBi9VjCnqNxlCgFfYOPh WTUKuHNwolcaht9ngCkp tlxbx5OsP1OgGqsqpMG7 IHgyOlxwYXJcbGkyMTYw JUZcKMzdAQlucX4vJHRt IEJpbGUgZHVjdCBhZGVu t72nbwnqKA3nWJTpesUs MS4hRXBwSHTvwbSPkyRe KBfvO10eqrP3SFeqCQ46 aWZpZWQuXHBhclxwYXJc cGFyZFxwYXJ9 Diagnosis (test code = k9saaWHcREJesOJ8GdTe 34) TULbk8oke5SwcAQleXBm NYzdkVEbxsEfvh87cYP5 lF38KS6yKWHlJkU6CTTi ssN6Guz9KAUzDFMbuFOj K194a0fcp3odkrSdtRY0 BAQpABVlI1DwGE6aAVNl fBImJ24ujIRxPHD2JVTu EHLbcGWrWBOtYUL1AIPs mYViH8biHUUpYI3aryef KGidJCjaQAQqgRI6TCXf oKEuD0GzSBKxEWnkRVJh div5AvPhKt3xbFSekJhb MFxwYXJkXHBsYWluXGZz OdTnR5RbSP72kDDaWIJx EOZOVFNpTDN9PYo0NZWf AJNFKszyTGVNIP9YW4Ch IYTcBQBLHRFjm8lsWDI6 OKIgs46sTPOeFt8jKRGq KTpccGFyXGNmMFxwYXJc zYw6BwButXnxCyHqKWIi OClretJrpI1yc1x3vJCn JPTdfxHbhmceLY7we7Eh FIYmR92chtIgwPAkKRAt C7Nyg709XWAtgytbsXCf NjBcZmktNzIwXGxpbjIx GdPgGbLoxQazXJQ3ms4o FDszKmypek3ywHHpiMgz bGluaXphdGlvbiBhbmQg amVwM2LfKGYufCEnjQdv ZXJhdGlvbiBpbnZvbHZp kjaayAMlGC16GLExCjWk AGVyJR0bHZVyv9YoASHw ms3zXF4iAFDnCOCvi36k GC02XZZvOHwfVPZzCJDq u3Zot2o4MNShAfAzN37x KFBlciBvdXRzaWRlIHJl vH9ffCjqmGQaIB2oRZYm rY4jhZTwo3FdUJPdxpA5 dH5jwxUozgUvPZ98GXcg LzEpLlxwYXIgUmVzZWN0 dS6oSX4xzjimmrQyOVOn XCYer4JsnHMfo0IaFVXe cvRNfzSghEXhh6VlaRMv b31ujEdfOd61IXvnaEJq e0KgAeebAWHpeDRhWLqs JhQmKQJiCYihoJ57JuAc Vr9xTGLzOC51LFZ9LSGl lT4or2i8DDDucen7XPEl SHlhbGluaXplZCBzdHJv sTWzUEVpy4srFdWsYJJr o11uXKeoAQRiR21voQQx dCAjMilccGFyXHBhciBD CaELrFLtehragi9cnWhp qpkcw0SeB7PkIzofkJO8 IHgyOlxwYXJcdGFiIFRv JTEfBCCbT38gEMWbvQTj AugyC9nttDY6xV5yz2n3 YNewkMNla2Lfb5FoMZJp CUDlCWSuJRTibV1gdMxg XHBhclxwYXJccGFyXHBh cmRccGFyfQ== Comment (test code = y5bnaISsDUPzgGR9UmKh 9835) BBSvb6brb4IyyCBunKXc WGohgUIeayKhmb92lTC8 iU50RD4iQNMmOvO4LSMf otW4Rlm1PKPsSFSouFId G744l0wra3boxuVvhQF3 jFdhOTBssakdLfB8TPbq LTRrzacuAGp1QTdhSBFh gTG9JEIvjPEaS9OrGTNo VM5dlzo5ZAZ4EKcjVADf QiB0XPTpxERtJTAgzSkk JYgxh667PTY7KqPuTSTs ivTguRdgkJ2lBtAiUXKb PSkLhAJzrEZ2HGDmiW5r tN9hfVegfA0okUFbdMTb vDYjtPJlubLlo8qsuhZ4 pHJ7BKRwKOUrcLPnrLIf IGNvbXBvbmVudCBpcyBu KNhqhBh3LWUzw3YiXuO5 HR9jWLWmsruwAYirgANc RWGjPBP2iJGzw1Yqi22w TAPIXxmiOOLUOAN8CAWi VLMolG9wCRVwy222oAQq dMPecTFdGXB0aY2xHDPB SzEsIFNPWDEwLCBmYWN0 b9UgNdrTIUTsSDGqqoXh O7SiDmZdEOMTKKO5CAln A3rpqEyirXQciqUeH1Yk RUOoB1rbmp1mqADkUGBx dWGaDMXekeRXgSFsc3Fx zdOwdYXkoH4mbA3gldRb bgZxgFgoy9Xaf4PwYSKb QH5lR39usMAoF9Tsspqh JdG3GRu1HDvfITSkCRku FN1ziC2eVRLpUWGtKENx hQE3OpKZlNLyKKnbGqBu ZI93eAKbTQSgATvnd2Be cyBpbmNsdWRlcyBhIHJl TRN2aNPkMS1jEHFbvytc apPwpWGrs1YvEYR4sGCl xUHeG4RomzKxdlZfKVEr DR5jC26bebUrJ1KwRTIi yVYpdD6cAAW3P2qlJFMs QB0kODL6KGEvo7Txwv07 tdAeMOkxt1XdAEHts17j ZrOtUN7padwth01jGBap gUzonbSvC7OelgKfO4yr carhcu0qSIOqhxveWFDr MoT9LBN4Lp2kwUEmLPVa eX00og2mmEC1z5IdWQ4p E0AnWOB4UBfuDSIefaPZ s14yyaZrRKKmiAFmogIz BFVftrSwBk0aXMSjrBkg jHQoTWAiq2NseNbruy0p cGFyXHBhclxwYXJ9 Disclaimer (test code = h5hunFXcYIFbbCVnSvLo 9844) IXZrJJRwe6ecGMQkdIMe ZzEwMzNcZnRuYmpcdWMx HLZfIgWxl2njj500bFJu w7weDJTwNpV7vLHuUHJt eACeB430KTFiVHqvf0jr t2LfKEIaiVTgf9C5XIGR wtzitXs9uDytM72zw4Z5 JtaiL4htEDZqDYZwM8Uu DZ6yLQRaIuv2QMK4ETW8 LTToUVElX6HwKP6iUTAw tHSzTPj9i9orlEejMZDf SER5t0eiRNhplsSfCM2q jk0jfVt0s4olskVmNAEn EPWvvYYEMFNkF3YtaCfq Ds6upYw4lXxmYwaiSBZ7 Ngo3NZ1jsh91pgl8fLlt KVDetoxuHgV6ETpiXRAr mmayLOe2MHhnSBXdlUQ9 FGFtrYHaU7XyTVCwVZ1p nui8JFA3HJbbEXZuJdT4 NDBcaGVhZGVyeTcyMFxm q666KOF2ZrEuXF4iZ2Xg z5S0yW4osTPiAZIeuXFc DgHwGJWjeq8ndNUwPLec c4GrMCH6xgA1wZYgbDNo GYPvSN28Ssdpb5YjWhha LVD4ILItwnKvj4Knw3fy QqArkeHxZ7neU2LeBAEc SCJeOUZtPkWguwKbh8Nv l9CujNQkvSt8k9dlHCOj SRGdmUbdg4thIHB0MVHo B2L9uKUhj8ewSJidUIXo rWL0tdB0GGFgbEVmG2Cp rD7kXUPrFK8sqqi0e2gz ZSC3HBgdXCEvKpQ2vaP6 NDBcaGVhZGVyeTcyMFxm c801ZZH5LqXkDUGmf9Ut U4BhbEofH03irFusG41d JWZifIeenA1szQaymC8i ZjBcZnMyNFxxbFxwbGFp plhbWLhbfeG8RSxoqqyv MPEiKJxkG9txMlAkHKHt kBgeFEppm3JpCUJiJXOi HkxjoxV6QJFOx92iKPVb h5TxGWMvhS1zuHCnMXyt mfGthNG8ZYxkzoRoUvPu nrGfKYEfqM5gROCiIC6o AOWuecGecl3lutGpTAFw EUYzH8GceukftBvjnmBh UQSbej3xsvNlOOF3VXQT CO9WRYKbDETbu95lLUTg jUxpcC1rtEHjhyJqOEUk q8HzyE0iiDUQFVKzF5uq HI9tDEoso1VnrWIxiEJn mGQ7IGNoj6PwFfTsxxYm aJHzvNOjO5PnuClgH4ek LXIdNNVpazMunAZwe7Bo DGEfjEP4fLPhRT2APwKT n47zGWRsTQUTrpRkUXBu qCjhwAN3bgS3xS8iErTZ ZiBhcHBsaWNhYmxlLCBj d950lv1dqpE1UARiFCTj kdaed5BjYFVfBDBqcK68 NVEoYDDbpb0txkbxaIIa iwXjV8Wlicv4qZ1sERIi YWluXGYxXGZzMjJcbGFu ZzEwMzNcaGljaFxmMVxk DfUgQJWjKIevQ8pfHsTu ZnMyMlxwYXJ9 [facility] void residual 2021-12-23 17:15:00 Test Item Value Reference Range Interpretation Comments Total [facility] (test code = 2336[facility] [id number] 17:15:00 Test Item Value Reference Range Interpretation Comments Total volume (test code = 2336) [facility] [id number] 17:15:00 Test Item Value Reference Range Interpretation Comments Total volume (test code = 2336) [facility] [id number] 17:15:00 Test Item Value Reference Range Interpretation Comments Total volume (test code = 2336) 0ml [facility] urinalysis [id number] 17:14:00 Test Item Value Reference Range Interpretation Comments Color urine, POC (test Yellow code = 0150277) Clarity urine, POC Clear (test code = 1834993) Glucose urine, POC Negative Negative (test code = 5484990) Bilirubin urine, POC Negative Negative (test code = 9014526) Ketones urine, POC Negative Negative (test code = 1142261) Specific gravity urine, 1.005-1.030 POC (test code = 9023595) Blood urine, POC (test Negative Negative code = 3076400) pH urine, POC (test See_Comment [Automa davion message] code = 7866525) The system [employer] generated this result transmitted ref erence range: 5.0, 5.5 , 6.0, 6.5, 7.0, 7.5, 8.0, 8.5. The refere nce range was not u sed to interpret this result as normal/abnor mal. Protein urine, POC Negative Negative (test code = 0113440) Urobilinogen urine, POC <2.0 See_Comment [Au tomated message] (test code = 3112399) The sy stem which generated this result transmitted ref erence range: <=2.0. T he reference range was not used to int erpret this result as normal/abnormal . Nitrite urine, POC Negative Negative (test code = 9702466) Leukocyte esterase Negative Negative urine, POC (test code = 7531488) [facility] urinalysis [id number] 17:14:00 Test Item Value Reference Range Interpretation Comments Color urine, POC (test Yellow code = 4438173) Clarity urine, POC Clear (test code = 1859520) Glucose urine, POC Negative Negative (test code = 4241354) Bilirubin urine, POC Negative Negative (test code = 5105588) Ketones urine, POC Negative Negative (test code = 8629782) Specific gravity urine, 1.005-1.030 POC (test code = 0953139) Blood urine, POC (test Negative Negative code = 9643618) pH urine, POC (test See_Comment [Automa davion message] code = 7808408) The system [employer] generated this result transmitted ref erence range: 5.0, 5.5 , 6.0, 6.5, 7.0, 7.5, 8.0, 8.5. The refere nce range was not u sed to interpret this result as normal/abnor mal. Protein urine, POC Negative Negative (test code = 6539919) Urobilinogen urine, POC <2.0 See_Comment [Au tomated message] (test code = 0285148) The sy stem which generated this result transmitted ref erence range: <=2.0. T he reference range was not used to int erpret this result as normal/abnormal . Nitrite urine, POC Negative Negative (test code = 4241254) Leukocyte esterase Negative Negative urine, POC (test code = 3482366) [facility] urinalysis [id number] 17:14:00 Test Item Value Reference Range Interpretation Comments Color urine, POC (test Yellow code = 0807797) Clarity urine, POC Clear (test code = 4201951) Glucose urine, POC Negative Negative (test code = 2259868) Bilirubin urine, POC Negative Negative (test code = 4525620) Ketones urine, POC Negative Negative (test code = 9726696) Specific gravity urine, 1.005-1.030 POC (test code = 4490370) Blood urine, POC (test Negative Negative code = 7613285) pH urine, POC (test See_Comment [Automa davion message] code = 0214489) The system [employer] generated this result transmitted ref erence range: 5.0, 5.5 , 6.0, 6.5, 7.0, 7.5, 8.0, 8.5. The refere nce range was not u sed to interpret this result as normal/abnor mal. Protein urine, POC Negative Negative (test code = 5674347) Urobilinogen urine, POC <2.0 See_Comment [Au tomated message] (test code = 8663320) The sy stem which generated this result transmitted ref erence range: <=2.0. T he reference range was not used to int erpret this result as normal/abnormal . Nitrite urine, POC Negative Negative (test code = 2375426) Leukocyte esterase Negative Negative urine, POC (test code = 7894950) [facility] urinalysis [id number] 17:14:00 Test Item Value Reference Range Interpretation Comments Color urine, POC (test Yellow code = 7023828) Clarity urine, POC Clear (test code = 8513980) Glucose urine, POC Negative Negative (test code = 8570433) Bilirubin urine, POC Negative Negative (test code = 3448966) Ketones urine, POC Negative Negative (test code = 5425398) Specific gravity urine, 1.005-1.030 POC (test code = 2539902) Blood urine, POC (test Negative Negative code = 3232226) pH urine, POC (test See_Comment [Automa davion message] code = 9674892) The system w hich generated this result transmitted ref erence range: 5.0, 5.5 , 6.0, 6.5, 7.0, 7.5, 8.0, 8.5. The refere nce range was not u sed to interpret this result as normal/abnor mal. Protein urine, POC Negative Negative (test code = 6300941) Urobilinogen urine, POC <2.0 See_Comment [Au tomated message] (test code = 0977432) The sy stem which generated this result transmitted ref erence range: <=2.0. T he reference range was not used to int erpret this result as normal/abnormal . Nitrite urine, POC Negative Negative (test code = 5643635) Leukocyte esterase Negative Negative urine, POC (test code = 9244794) [facility] MOLECULAR [id number] 22:32:52 Test Item Value Reference Range Interpretation Comments POCT Molecular FluA (test code = Negative Negative 23794-6) POCT Molecular FluB (test code = Negative Negative 23986-8) Lab Interpretation (test code = Normal 03494-3) [facility] MOLECULAR [id number] 22:26:40 Test Item Value Reference Range Interpretation Comments POCT Molecular Strep (test code = Negative Negative 56953-8) Lab Interpretation (test code = Normal 75870-1) [facility] [id number] 00:06:50 Test Item Value Reference Range Interpretation Comments Urine culture (test SEE COMMENT Bacteriu jacobo screen code = 6257750) negative. [facility] [id number] 00:06:50 Test Item Value Reference Range Interpretation Comments Urine culture (test SEE COMMENT Bacteriu jacobo screen code = 8567847) negative. [facility] [id number] 00:06:50 Test Item Value Reference Range Interpretation Comments Urine culture (test SEE COMMENT Bacteriu jacobo screen code = 3739504) negative. [facility] [id number] 00:06:50 Test Item Value Reference Range Interpretation Comments Urine culture (test SEE COMMENT Bacteriu jacobo screen code = 6521848) 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 employed in a healthcare setting (test code = 39865-2) Whether the patient has symptoms related to condition of interest (test code = 51680-0) Patient was hospitalized because of this condition (test code = 03658-1) Whether the patient was admitted to intensive care unit (ICU) for condition of interest (test code = 14530-6) Whether patient resides in a congregate care setting (test code = 43041-4) [facility] [id number] 20:28:41 Test Item Value Reference Range Interpretation Comments Case number (test code = [id number]) Surgical pathology See link below for report (test code = PDF Lab Report 2255) Result status (test code This is Final Report = [id number]) [facility] [id number] [facility] [id number] 20:28:41 Test Item Value Reference Range Interpretation Comments Case number (test code = [id number]) Surgical pathology See link below for report (test code = PDF Lab Report 2255) Result status (test code This is Final Report = 9278782) for [id number] [facility] [id number] 20:28:41 Test Item Value Reference Range Interpretation Comments Case number (test code = [id number]) Surgical pathology See link below for report (test code = PDF Lab Report 2255) Result status (test code This is Final Report = 9468751) for [id number] Street2021-10-10 11:42:29 Test Item Value Reference Range Interpretation Comments Ventricular rate (test code = 253) Atrial rate (test code = 255) AR interval (test code = 266) QRSD interval [...] Ferrer MD ([id number]) on 08/24/2021 6:42:27 AM [address]2021-10-10 11:42:29 Test Item Value Reference Range Interpretation Comments Ventricular rate (test code = 253) Atrial rate (test code = 255) AR interval (test code = 266) QRSD interval [...] Ferrer MD ([id number]) on 08/24/2021 6:42:27 AM [address]2021-10-10 11:42:29 Test Item Value Reference Range Interpretation Comments Ventricular rate (test code = 253) Atrial rate (test code = 255) AR interval (test code = 266) QRSD interval [...] Ferrer MD ([id number]) on 08/24/2021 6:42:27 AM [facility] [id number] 18:03:01 Test Item Value Reference Range Interpretation Comments POC glucose (test code 175 mg/dL 65-99 [address] Name: = 74298-7) Selene CarmenoslabaDevice ID: [id number] able: 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 Interpretation Abnormal (test code = 30230-4) [facility] [id number] 18:03:01 Test Item Value Reference Range Interpretation Comments POC glucose (test code 175 mg/dL 65-99 [address] tor Name: = 56542-9) Morton KermitoslabaDevice ID: [id number] able: 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 Interpretation Abnormal (test code = 16647-8) [facility] [id number] 18:03:01 Test Item Value Reference Range Interpretation Comments POC glucose (test code 175 mg/dL 65-99 H Opera tor Name: = 49485-1) [facility] KermitoslabaDevice ID: [id number] able: 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 Interpretation Abnormal (test code = 20956-0) [facility] [id number] 10:26:00 Test Item Value Reference Range Interpretation Comments ABO grouping (test code = 883-9) A Rh type (test code = 85312-3) POS Antibody screen (gel) (test code = NEG 890-4) [facility] [id number] 10:26:00 Test Item Value Reference Range Interpretation Comments ABO grouping (test code = 883-9) A Rh type (test code = 04923-3) POS Antibody screen (gel) (test code = NEG 890-4) [facility] [id number] 10:26:00 Test Item Value Reference Range Interpretation Comments ABO grouping (test code = 883-9) A Rh type (test code = 59834-1) POS Antibody screen (gel) (test code = NEG 890-4) [facility] [Presence] in Respiratory specimen by ADELAIDA with probe [id number] 07:00:55 Test Item Value Reference Range Interpretation Comments SARS-CoV-2 (COVID-19) RNA Not detected Not-Detected [Presence] in Respiratory specimen by ADELAIDA with probe detection (test code = 09187-2) Whether 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 is employed in a healthcare setting (test code = 14020-1) Whether the patient has symptoms related to condition of interest (test code = 93826-5) Patient was hospitalized because of this condition (test code = 81457-2) Whether the patient was admitted to intensive care unit (ICU) for condition of interest (test code = 92845-1) Whether patient resides in a congregate care setting (test code = 95762-1) [facility]-CoV-2 (COVID-19) RNA [Presence] in Respiratory specimen by ADELAIDA with probe [id number] 14:44:09 Test Item Value Reference Range Interpretation Comments SARS-CoV-2 (COVID-19) RNA Not detected Not-Detected [Presence] in Respiratory specimen by ADELAIDA with probe detection (test code = 27847-0) [facility] TELLO
[2022-10-02 01:19] LABS: Absolute Lymphocytes (CBC) 0.7 K/uL (0.7-4.9); Hematocrit 33.5 % (36.0-45.0); Lymphocytes % 10.9 % (15.3-44.8); MCV 84.3 fL (80-100); MPV 7.4 fL (7.6-11.3); RBC Red Blood Cell Count 3.97 M/uL (3.86-4.86)
[2022-10-02] MEDS ORDERED: ONDANSETRON 4 MG/2 ML VIAL ONE (01:19)
[2022-10-02] MEDS ORDERED: NA CHLORIDE 0.9% 500 ML ONE (01:19)
[2022-10-02] MEDS ORDERED: DICYCLOMINE HCL 20 MG/2 ML AMP IM ONE (01:19)
[2022-10-02] MEDS ORDERED: FAMOTIDINE 20 MG/2 ML VIAL IV ONE (01:19)
[2022-10-02 01:39] LABS: Bilirubin Total 0.5 mg/dL (0.2-1.0); Potassium 3.4 mmol/L (3.5-5.1); Protein, Total 7.7 g/dL (6.4-8.2)
[2022-10-02 01:58] LABS: SARS-COV-2 RT PCR NEGATIVE (NEGATIVE)
[2022-10-02] MEDS ORDERED: DIPHENOX/ATROP SULF 1 TAB PO ONE ×2 (03:16→03:17)
--- NOTE | 2022-10-02 03:18 | EDPHYS ---
Physician Documentation [facility] Name: Adelita Lemons Age: 62 yrs Sex: Female : 1960 Arrival Date: 10/02/2022 Time: 00:02 Bed 7 Private MD: ED Physician Nestor Valerio HPI: 10/02 00:33 This 62 yrs old Female presents to ER via Ambulatory with complaints of Abdominal Pain, cp Nausea, Diarrhea. 00:33 The patient presents with abdominal pain that is diffuse. Onset: The symptoms/episode cp began/occurred yesterday. The symptoms do not radiate. Associated signs and symptoms: Pertinent positives: diarrhea, nausea, sweats, general weakness. The symptoms are described as constant. Severity of pain: in the emergency department the pain is unchanged despite home interventions. 00:33 Patient reports having colonoscopy performed by DR Walter yesterday with no cp complications. Historical: - Allergies: 00:28 Amoxicillin; bb 00:28 Bactrim; bb 00:28 morphine-vomiting; bb - Home Meds: 00:28 dilaudid [Active]; gabapentin oral [Active]; losartan-hydrochlorothiazide oral bb [Active]; Omeprazole Oral [Active]; - PMHx: 00:28 chronic back pain; GERD; Hypertension; bb - PSHx: 00:28 Appendectomy; bowel resection; Cholecystectomy; Fibrous mass removed from abd; bb hysterectomy; L knee replacement; R hip replacement; right rotator cuff; - Immunization history:: Client reports receiving the 2nd dose of the Covid vaccine. - Social history:: Smoking status: Patient denies any tobacco usage or history of. ROS: 00:35 Constitutional: Positive for poor PO intake, Negative for fever. cp 00:35 Eyes: Negative for injury, pain, redness, and discharge. cp 00:35 ENT: Negative for drainage from ear(s), ear pain, sore throat, difficulty swallowing, difficulty handling secretions. 00:35 Cardiovascular: Negative for chest pain. 00:35 Respiratory: Negative for cough, shortness of breath, wheezing. 00:35 Abdomen/GI: Positive for abdominal pain, nausea, diarrhea, Negative for vomiting, black/tarry stool. 00:35 : Negative for urinary symptoms. 00:35 Neuro: Positive for weakness, Negative for altered mental status, headache, syncope. 00:35 All other systems are negative. Exam: 00:40 Constitutional: The patient appears in no acute distress, alert, awake, cp non-diaphoretic, non-toxic, well developed, well nourished, uncomfortable. 00:40 Head/Face: Normocephalic, atraumatic. cp 00:40 Eyes: Periorbital structures: appear normal, Conjunctiva: normal, no exudate, no cp injection, Sclera: no appreciated abnormality, Lids and lashes: appear normal, bilaterally. 00:40 ENT: External ear(s): are unremarkable, Nose: is normal, Mouth: Lips: moist, Oral cp mucosa: pink and intact, moist, Posterior pharynx: Airway: no evidence of obstruction, patent. 00:40 Chest/axilla: Inspection: normal. 00:40 Cardiovascular: Rate: tachycardic, Rhythm: regular, Edema: is not appreciated, JVD: is not appreciated. 00:40 Respiratory: the patient does not display signs of respiratory distress, Respirations: normal, no use of accessory muscles, no retractions, labored breathing, is not present, Breath sounds: are clear throughout, no decreased breath sounds, no stridor, no wheezing. 00:40 Abdomen/GI: Inspection: abdomen appears normal, Bowel sounds: active, all quadrants, Palpation: soft, in all quadrants, moderate abdominal tenderness, in all quadrants, rebound tenderness, is not appreciated, involuntary guarding, is not appreciated. 00:40 Back: pain, is absent, ROM is normal. 00:40 Neuro: Orientation: to person, place \T\ time. Mentation: is normal, Motor: moves all fours, strength is normal, Gait: is steady, at a normal pace, without difficulty. Vital Signs: 00:25 BP 177 / 107; Pulse 113; Resp 18 S; Temp 96.9(O); Pulse Ox 94% on R/A; Weight 96.16 kg bb (R); Height 6 ft. 2 in. (187.96 cm) (R); Pain 7/10; 00:25 Body Mass Index 27.22 (96.16 kg, 187.96 cm) bb MDM: 00:48 Patient medically screened. cp 03:15 Data reviewed: vital signs, nurses notes, lab test result(s), radiologic studies, CT cp scan. 03:15 Differential diagnosis: non-specific abd pain, Ureterolithiasis, urinary tract cp infection, GI bleed, perforation of colon, sepsis, colitis. Counseling: I had a detailed discussion with the patient and/or guardian regarding: the historical points, exam findings, and any diagnostic results supporting the discharge/admit diagnosis, lab results, radiology results, to return to the emergency department if symptoms worsen or persist or if there are any questions or concerns that arise at home. Response to treatment: the patient's symptoms have markedly improved after treatment, and as a result, I will discharge patient. Special discussion: Based on the patient's Hx, exam, and Dx evaluation, there is no indication for emergent surgery or inpatient Tx. It is understood by the patient/guardian that if the Sx's persist or worsen they need to return immediately for re-evaluation. ED course: VSS. Pain and nausea improved. Will discharge to home for continued monitoring. 10/02 00:09 Order name: CBC with Diff; Complete Time: 01:36 [facility] 10/02 01:36 Interpretation: Normal except: HGB 11.5; HCT 33.5; MPV 7.4; LINDA% 80.9; LYM% 10.9. cp 10/02 00:09 Order name: CMP; Complete Time: 02:12 [facility] 10/02 02:12 Interpretation: Normal except: K 3.4; GLUC 136; GFR 69; GLOB 3.7. cp 10/02 00:09 Order name: Lipase; Complete Time: 02:12 kdr 10/02 00:26 Order name: COVID-19/FLU A+B; Complete Time: 02:12 10/02 02:12 Interpretation: Reviewed. 10/02 00:28 Order name: CT Abd/Pelvis - IV Contrast Only 10/02 00:09 Order name: IV Saline Lock; Complete Time: 01:10 kdr 10/02 00:09 Order name: Labs collected and sent; Complete Time: 01:10 [facility] 10/02 03:01 Order name: PO challenge; Complete Time: 03:19 cp Administered Medications: 01:29 Drug: Pepcid (famotidine) 20 mg Route: IVP; Site: left antecubital; tw5 03:12 Follow up: Response: No adverse reaction aa9 01:29 Drug: Zofran (Ondansetron) 4 mg Route: IVP; Site: left antecubital; tw 03:12 Follow up: Response: No adverse reaction aa9 01:29 Drug: NS 0.9% 1000 ml Route: IV; Rate: 500 bolus; Site: left antecubital; 03:35 Follow up: Response: No adverse reaction; IV Status: Completed infusion; IV Intake: aa9 500ml 01:29 Drug: Dicyclomine 20 mg Route: IM; Site: right deltoid; 03:12 Follow up: Response: No adverse reaction aa9 03:19 Drug: LoMOTIL (diphenoxylate-atropine) 2 tabs Route: PO; aa9 03:35 Follow up: Response: No adverse reaction aa9 Disposition: 03:46 Co-signature as Attending Physician, Nestor Valerio MD I agree with the assessment and kdr plan of care. Disposition Summary: 10/02/22 03:17 Discharge Ordered Location: Home cp Problem: new cp Symptoms: have improved cp Condition: Stable cp Diagnosis - Nausea cp - Diarrhea, unspecified cp Followup: cp - With: Jose Antonio Almeida MD - When: 1 - 2 days - Reason: Worsening of condition Followup: cp - With: Jose Antonio Almeida MD - When: 2 - 3 days - Reason: Recheck today's complaints Discharge Instructions: - Discharge Summary Sheet cp - Food Choices to Help Relieve Diarrhea, Adult cp - Diarrhea, Adult cp - Nausea, Adult cp Forms: - Medication Reconciliation Form cp - Thank You Letter cp - Antibiotic Education cp - Prescription Opioid Use cp Prescriptions: - Lomotil 2.5-0.025 mg Oral Tablet - take 1 tablet by ORAL route every 6 hours As needed; 20 tablet; Refills: 0, cp Product Selection Permitted - promethazine 25 mg Oral Tablet - take 1 tablet by ORAL route every 6 hours As needed; 20 tablet; Refills: 0, cp Product Selection Permitted Signatures: Dispatcher [employer] Nestor Montalvo MD MD kdr Ballard, Brenda, RN RN Radames Morales PA PA cp Wood, Tiffany tw5 Dhara Adkins RN RN aa9
--- NOTE | 2022-10-02 03:18 | ER ---
Nurse's Notes [facility] Name: Adelita Lemons Age: 62 yrs Sex: Female : 1960 Arrival Date: 10/02/2022 Time: 00:02 Bed 7 Private MD: Diagnosis: Nausea;Diarrhea, unspecified Presentation: 10/02 00:25 Chief complaint: Patient states: she had a colonoscopy this morning she has been having bb diarrhea all day, with abdominal pain and she is nauseated, burning up and "aches" real bad. Coronavirus screen: Ebola Screen: No symptoms or risks identified at this time. Initial Sepsis Screen: Does the patient meet any 2 criteria? No. Patient's initial sepsis screen is negative. Does the patient have a suspected source of infection? No. Patient's initial sepsis screen is negative. Risk Assessment: Do you want to hurt yourself or someone else? Patient reports no desire to harm self or others. Onset of symptoms was October 01, 2022. 00:25 Method Of Arrival: Ambulatory bb 00:25 Acuity: CRISTAL 3 bb Triage Assessment: 02:30 General: Appears uncomfortable, Behavior is calm, cooperative, appropriate for age. aa9 Pain: Complains of pain in abdomen. GI: Reports diarrhea. 02:30 Neuro: Level of Consciousness is awake, alert, obeys commands, Oriented to person, aa9 place, time, situation. Respiratory: Airway is patent Trachea midline Respiratory effort is even, unlabored. : No signs and/or symptoms were reported regarding the genitourinary system. Historical: - Allergies: 00:28 Amoxicillin; bb 00:28 Bactrim; bb 00:28 morphine-vomiting; bb - Home Meds: 00:28 dilaudid [Active]; gabapentin oral [Active]; losartan-hydrochlorothiazide oral bb [Active]; Omeprazole Oral [Active]; - PMHx: 00:28 chronic back pain; GERD; Hypertension; bb - PSHx: 00:28 Appendectomy; bowel resection; Cholecystectomy; Fibrous mass removed from abd; bb hysterectomy; L knee replacement; R hip replacement; right rotator cuff; - Immunization history:: Client reports receiving the 2nd dose of the Covid vaccine. - Social history:: Smoking status: Patient denies any tobacco usage or history of. Screenin:19 Abuse screen: Denies threats or abuse. Denies injuries from another. Nutritional aa9 screening: No deficits noted. Tuberculosis screening: No symptoms or risk factors identified. Fall Risk None identified. Assessment: 02:30 General: Appears comfortable, ill, Behavior is calm, cooperative, appropriate for age. aa9 02:30 General: pt ambulated to restroom independently, denied diarrhea . Neuro: Level of aa9 Consciousness is awake, alert, obeys commands, Oriented to person, place, time, situation. Respiratory: Airway is patent Respiratory effort is even, unlabored. GI: Abdomen is flat. 03:36 Reassessment: pt ambulated out er with family member, denies concerns, understands aa9 discharge insrtuctions. Vital Signs: 00:25 BP 177 / 107; Pulse 113; Resp 18 S; Temp 96.9(O); Pulse Ox 94% on R/A; Weight 96.16 kg bb (R); Height 6 ft. 2 in. (187.96 cm) (R); Pain 7/10; 00:25 Body Mass Index 27.22 (96.16 kg, 187.96 cm) bb ED Course: 00:02 Patient arrived in ED. bp1 00:09 Nestor Valerio MD is Attending Physician. kdr 00:26 Radames Carlos PA is PHCP. cp 00:28 Triage completed. bb 00:28 Arm band placed on Patient placed in an exam room, on a stretcher, on pulse oximetry. bb Family accompanied patient. 01:00 Inserted saline lock: 20 gauge in left antecubital area, using aseptic technique. Blood wm collected. 01:09 Initial lab(s) drawn, by me, sent to lab. COVID swab sent to lab. Flu and/or RSV swab wm sent to lab. 01:10 COVID-19/FLU A+B Sent. wm 01:10 CBC with Diff Sent. wm 01:10 CMP Sent. wm 01:10 Lipase Sent. wm 01:11 Bed in low position. Call light in reach. Side rails up X2. Lights dimmed. Warm blanket wm given. 02:06 CT Abd/Pelvis - IV Contrast Only In Process Unspecified. EDMS 03:16 Jose Antonio Almeida MD is Referral Physician. cp 03:16 Referral Physician role handed off by Jose Antonio Almeida MD cp 03:16 Jose Antonio Almeida MD is Referral Physician. cp 03:20 No provider procedures requiring assistance completed. aa9 03:35 IV discontinued, intact, bleeding controlled, No redness/swelling at site. Pressure aa9 dressing applied. Administered Medications: 01:29 Drug: Pepcid (famotidine) 20 mg Route: IVP; Site: left antecubital; tw5 03:12 Follow up: Response: No adverse reaction aa9 01:29 Drug: Zofran (Ondansetron) 4 mg Route: IVP; Site: left antecubital; tw5 03:12 Follow up: Response: No adverse reaction aa9 01:29 Drug: NS 0.9% 1000 ml Route: IV; Rate: 500 bolus; Site: left antecubital; tw5 03:35 Follow up: Response: No adverse reaction; IV Status: Completed infusion; IV Intake: aa9 500ml 01:29 Drug: Dicyclomine 20 mg Route: IM; Site: right deltoid; tw5 03:12 Follow up: Response: No adverse reaction aa9 03:19 Drug: LoMOTIL (diphenoxylate-atropine) 2 tabs Route: PO; aa9 03:35 Follow up: Response: No adverse reaction aa9 Medication: 03:20 VIS not applicable for this client. aa9 Intake: 03:35 IV: 500ml; Total: 500ml. aa9 Outcome: 03:17 Discharge ordered by . cp 03:34 Discharged to home ambulatory, with family. aa9 03:34 Condition: stable 03:34 Discharge instructions given to patient, Instructed on discharge instructions, follow up and referral plans. medication usage, Demonstrated understanding of instructions, follow-up care, medications, Prescriptions given X 2. 03:35 Patient left the ED. aa9 Signatures: Dispatcher [employer] EDMS Nestor Valerio MD MD kdr Ballard, Brenda, RN RN Radames Morales PA PA cp [place], Brittany bp1 Marsh, Wendy Sis Kim tw5 Dhara Adkins, DISHA RN aa9 Corrections: (The following items were deleted from the chart) 01:11 01:09 Inserted saline lock: 20 gauge in left antecubital area, using aseptic technique. Blood collected. 03:37 03:34 GI: aa9 aa9
[2022-10-02 03:41] VITALS: BP 177/107; TEMP 96.9; O2SAT 94
--- NOTE | 2022-10-02 12:30 | RAD REPORT ---
EXAM DESCRIPTION: CT - Abdomen Pelvis W Contrast - 10/02/2022 6:48 am CLINICAL HISTORY: The patient is 62 years old and is Female; diarrhea TECHNIQUE: Axial computed tomography images of the abdomen and pelvis with intravenous contrast. S agittal and coronal reformatted images were created and reviewed. This CT exam was performed using one or more of the following dose reduction techniques: automated exposure control, adjustment of t he mA and/or kV according to patient size, and/or use of iterative reconstruction technique. COMPARISON: No relevant prior studies available. FINDINGS: Lung bases: Unremarkable. No mass. No consolidation. ABDOMEN: Liver: Unremarkable. No mass. Gallbladder and bile ducts: Gallbladder is surgically absent. No ductal dilation. Pancreas: Unremarkable. No mass. No ductal dilation. Spleen: Unremarkable. No splenomegaly. Adrenals: Unremarkable. No mass. Kidneys and ureters: Unremarkable. No solid mass. No hydronephrosis. Stomach and bowel: There are postsurgical changes in the small bowel. No obstruction. No mucosal thickening. PELVIS: Appendix: No findings to suggest acute appendicitis. Bladder: Unremarkable. Reproductive: Unremarkable as visualized. ABDOMEN and PELVIS: Intraperitoneal space: Unremarkable. No free air. No significant fluid collection. Bones/joints: Right hip arthroplasty with associated artifact limiting evaluation of the lower pe lvis. Disc space narrowing with degenerative endplate changes in the spine. No acute fracture. No dislocation. Soft tissues: Unremarkable. Vasculature: Unremarkable. No abdominal aortic aneurysm. Lymph nodes: Unremarkable. No enlarged lymph nodes. IMPRESSION: No acute finding in the abdomen/pelvis. Electronically signed by: Ignacio Flanagan MD 10/02/2022 2:56 AM P[employer]ER [employer]OX [employer] Due to temporary technical issues with the PACS/Fluency reporting system, reports are being signed by the in house radiologists without review as a courtesy to insure prompt reporting. The interpreting radiologist is fully responsible for the content of the report
== END 2022-10-02 03:35 | disposition home or self-care (01) ==
LOC: ER 23:59
DX: R19.7 Diarrhea, unspecified (principal); R11.0 Nausea; I10 Essential (primary) hypertension; Z20.822 Contact with and (suspected) exposure to COVID-19; Z88.1 Allergy status to other antibiotic agents; Z88.5 Allergy status to narcotic agent
CPT/HCPCS: 96361; 85025; 36415; 83690; 80053; 0240U; 74177; 96375; 96372; 96374; 99284; Q9967; J0500; J7040; J2405

== ENCOUNTER 2024-04-15 19:25 | Inpatient (IN) | payer OTHER ==
--- OUTSIDE RECORDS SUMMARY | 2024-04-15 19:27 | XMS REPORT | Clinical Summary ---
Author Name Unknown Organization [facility] [place] [place] [facility] [place] Address [address] [place] [address] Care Team Providers Care Raise Driller Name Role Phone Madison Manning Unavailable Social History Tobacco Use Types Packs/Day Years Used Date Smoking Tobacco: Never Assessed Sex and Gender Information Value Date Recorded Sex Assigned at Not on file Gender Identity Not on file Sexual Orientation Not on file Job Start Date Occupation Industry Not on file Not on file Not on file Plan of Treatment Not on file Care Teams Raise Driller Relationship Specialty Start Date End Date Madison Manning PCP - External Follow Up A 03/19/22
[2024-04-15] MEDS ORDERED: ONDANSETRON 4 MG/2 ML VIAL ONE (20:21)
[2024-04-15] MEDS ORDERED: HYDROMORPHONE HCL 1 MG/ML INJ ONE ×2 (20:21→20:57)
[2024-04-15] MEDS ORDERED: NA CHLORIDE 0.9% 1,000 ML ONE (20:21)
[2024-04-15] MEDS ORDERED: FAMOTIDINE 20 MG/2 ML VIAL IV ONE (20:21)
[2024-04-15 20:46] LABS: Absolute Lymphocytes (CBC) 0.9 K/uL (0.7-4.9); Absolute Neutrophil 14.5 K/uL (1.8-8.0); Basophils % 0.2 % (0-1.3); Eosinophils % 0.3 % (0-4.4); Hematocrit 35.9 % (36.0-45.0); Lymphocytes % 5.4 % (15.3-44.8); MCH 27.9 pg (27.0-35.0); MCHC 33.4 g/dL (32.0-36.0); MCV 83.5 fL (80-100); MPV 8.1 fL (7.6-11.3); Monocytes % 6.2 % (3.3-12.3); Neutrophils % 87.9 % (41.7-73.7); Platelets 274 thou/uL (152-406)
[2024-04-15 21:03] LABS: Albumin 4.1 g/dL (3.4-5.0); Anion Gap 7.1 mEq/L (5.0-15.0); Bilirubin Total 0.4 mg/dL (0.2-1.0); Potassium 4.1 mEq/L (3.5-5.1); Protein, Total 8.1 g/dL (6.4-8.2)
--- NOTE | 2024-04-15 22:50 | RAD REPORT ---
EXAM DESCRIPTION: CTAbdomen Pelvis W Contrast - 04/15/2024 10:34 pm CLINICAL HISTORY: lower abdomen pain COMPARISON: Abdomen Pelvis W Contrast dated 10/02/2022; Abdomen Pelvis W Contrast dated ; Abdomen Pelvis W Contrast dated 06/18/2021; CT ABD PELVIS W CONTRAST dated 10/11/2013 TECHNIQUE: CT of the abdomen and pelvis was performed. All CT scans are performed using dose optimization technique as appropriate and may include automated exposure control or mA/KV adjustment according to patient size. FINDINGS: Lower chest: No acute abnormality. Liver: No focal masses identified. Biliary: Cholecystectomy. Stomach: No significant focal abnormality. Duodenum: No significant focal abnormality. Pancreas: Mild pancreatic atrophy. Spleen: No significant abnormality. Adrenal: No suspicious lesions. Kidney/ureter: Bilateral hydroureter with urothelial thickening. Periureteric stranding is present. N o ureteral stones identified. Retroperitoneum: No retroperitoneal adenopathy. Vascular: No aneurysm. Mild atherosclerosis . Bowel: No significant focal abnormality. Peritoneum: No ascites or free air. Bladder: Mild bladder wall thickening hyperenhancement. Reproductive: No adnexal masses. Hysterectomy. Bones: No acute fracture. Right hip arthroplasty. Multilevel degenerative changes are present in the spine. Other: n/a IMPRESSION: Bladder wall thickening and hyperenhancement with bilateral hydroureter, urothelial thic kening, and periureteric stranding concerning for cystitis with ascending urinary tract infection. No hydronephrosis. No ureteral calculi.
[2024-04-15 23:16] LABS: Specific Gravity 1.015 (1.005-1.030); Sqamous Epithelial <5 /HPF (None Seen); Urine Bacteria None Seen /HPF (<20); Urine Bilirubin NEGATIVE (Negative); Urine Blood 3+ (Negative); Urine Clarity Extremely Turbid (Clear); Urine Color Light-Orange (Yellow); Urine Culture Reflex Order REFLEXED; Urine Glucose NEGATIVE (Negative); Urine Ketones NEGATIVE (Negative); Urine Microscopic Reflex YN ORDER UMIC; Urine Nitrite 2+ (Negative); Urine Protein 3+ (Negative); Urine RBC >50 /HPF (None Seen); Urine Urobilinogen Normal (Normal); Urine WBC >50 /HPF (<5); Urine WBC Clump Moderate /HPF (None Seen); Urine pH 6.5 (5.0-7.0)
[2024-04-15] MEDS ORDERED: CEFTRIAXONE 1000 MG/VIAL ONE (23:22)
--- NOTE | 2024-04-15 23:41 | EDPHYS ---
Physician Documentation [facility] Name: Adelita Lemons Age: 63 yrs Sex: Female : 1960 Arrival Date: 04/15/2024 Time: 19:25 Bed 5 Private MD: ED Physician Radames Phillips HPI: 04/15 21:00 This 63 yrs old Female presents to ER via Wheelchair with complaints of Abdominal Pain. cp 21:00 The patient presents with abdominal pain in the lower abdomen. Onset: The cp symptoms/episode began/occurred this morning, and became worse today. 21:00 Associated signs and symptoms: Pertinent positives: constipation, nausea, Pertinent cp negatives: anorexia, blood in stools, chest pain, diarrhea, fever, headache, shortness of breath, vomiting. 21:00 Severity of pain: in the emergency department the pain is unchanged despite home cp interventions. Historical: - Allergies: 19:54 Amoxicillin; cm10 19:54 Bactrim; cm10 19:54 morphine-vomiting; cm10 - Home Meds: 19:54 losartan 50 mg oral tablet daily [Active]; hydrochlorothiazide 12.5 mg Oral capsule cm10 daily [Active]; cyclobenzaprine 10 mg Oral tablet 3 times per day [Active]; omeprazole 20 mg Oral Tablet,disintegrating,delayed release daily [Active]; gabapentin 400 mg oral capsule 3 times per day [Active]; dilaudid 4 mg three times a day [Active]; - PMHx: 19:54 chronic back pain; GERD; Hypertension; cm10 - PSHx: 19:54 Appendectomy; bowel resection; Cholecystectomy; Fibrous mass removed from abd; cm10 hysterectomy; L knee replacement; R hip replacement; right rotator cuff; - Immunization history:: Adult Immunizations up to date. - Infectious Disease History:: Denies. - Social history:: Smoking status: Patient denies any tobacco usage or history of. ROS: 21:05 Constitutional: Negative for body aches, chills, fever, poor PO intake, cp 21:05 Eyes: Negative for injury, pain, redness, and discharge, cp 21:05 ENT: Negative for drainage from ear(s), ear pain, sore throat, difficulty swallowing, difficulty handling secretions, 21:05 Cardiovascular: Negative for chest pain, 21:05 Respiratory: Negative for cough, shortness of breath, wheezing, 21:05 Abdomen/GI: Positive for abdominal pain, nausea, of the right lower quadrant and left lower quadrant, Negative for vomiting, diarrhea, constipation, 21:05 Back: Negative for pain at rest, pain with movement, 21:05 Neuro: Negative for altered mental status, dizziness, headache, weakness, 21:05 All other systems are negative, Exam: 21:10 Constitutional: The patient appears in no acute distress, alert, awake, cp non-diaphoretic, non-toxic, well developed, well nourished, uncomfortable, 21:10 Head/Face: Normocephalic, atraumatic. cp 21:10 Eyes: Periorbital structures: appear normal, Conjunctiva: normal, no exudate, no injection, Sclera: no appreciated abnormality, Lids and lashes: appear normal, bilaterally, 21:10 ENT: External ear(s): are unremarkable, Nose: is normal, Mouth: Lips: moist, Oral mucosa: pink and intact, moist, Posterior pharynx: Airway: no evidence of obstruction, patent, 21:10 Chest/axilla: Inspection: normal, 21:10 Cardiovascular: Rate: normal, Rhythm: regular, Edema: is not appreciated, JVD: is not appreciated, 21:10 Respiratory: the patient does not display signs of respiratory distress, Respirations: normal, no use of accessory muscles, no retractions, labored breathing, is not present, Breath sounds: are clear throughout, no decreased breath sounds, no stridor, no wheezing, 21:10 Abdomen/GI: Inspection: abdomen appears normal, Bowel sounds: active, all quadrants, Palpation: soft, in all quadrants, severe abdominal tenderness, in the right lower quadrant and left lower quadrant, rebound tenderness, is not appreciated, involuntary guarding, is not appreciated, 21:10 Back: CVA tenderness, is absent, 21:10 Neuro: Orientation: to person, place \T\ time. Mentation: is normal, Motor: moves all fours, strength is normal, Vital Signs: 19:52 BP 177 / 96; Pulse 93; Resp 18; Temp 98.4; Pulse Ox 98% on R/A; Weight 83.91 kg; Height cm10 6 ft. 3 in. ; Pain 1010; 20:30 BP 161 / 85; Pulse 86; Resp 18; Pulse Ox 97% on R/A; km8 21:00 BP 157 / 86; Pulse 85; Resp 16; Pulse Ox 92% on R/A; km8 21:30 BP 145 / 77; Pulse 92; Resp 16; Pulse Ox 100% on 2 lpm NC; km8 22:00 BP 144 / 78; Pulse 87; Resp 16; Pulse Ox 99% on 2 lpm NC; km8 22:48 BP 137 / 69; Pulse 84; Resp 16; Pulse Ox 95% on R/A; km8 23:00 BP 136 / 73; Pulse 84; Resp 16; Pulse Ox 99% ; km8 04/16 00:00 BP 123 / 69; Pulse 86; Resp 16; Pulse Ox 100% on 2 lpm NC; km8 01:00 BP 108 / 65; Pulse 69; Resp 16; Pulse Ox 95% on R/A; km8 02:00 BP 123 / 72; Pulse 73; Resp 16; Pulse Ox 96% on R/A; km8 03:00 BP 116 / 62; Pulse 65; Resp 16; Pulse Ox 100% on R/A; km8 04/15 19:52 Body Mass Index 23.12 (83.91 kg, 190.5 cm) cm10 04/15 19:52 Pain Scale: Adult cm10 Orient Coma Score: 04/15 20:15 Eye Response: spontaneous(4). Motor Response: obeys commands(6). Verbal Response: km8 oriented(5). Total: 15. MDM: 19:59 Patient medically screened. 21:00 Differential diagnosis: non-specific abd pain, Pyelonephritis, Ureterolithiasis, cp urinary tract infection, sepsis, bowel obstruction. 23:40 Data reviewed: vital signs, nurses notes, lab test result(s), radiologic studies, CT cp scan, and as a result, I will admit patient. 23:40 I considered the following discharge prescriptions or medication management in the emergency department Medications were administered in the Emergency Department. See MAR. Counseling: I had a detailed discussion with the patient and/or guardian regarding the historical points, exam findings, and any diagnostic results supporting the discharge/admit diagnosis, lab results, radiology results. Response to treatment: the patient's symptoms have markedly improved after treatment, and as a result, I will admit patient. 04/15 20:10 Order name: CBC with Diff; Complete Time: 20:51 cp 04/15 22:21 Interpretation: Normal except: WBC 16.50; HCT 35.9; LINDA% 87.9; LYM% 5.4; NEUT A 14.5. 04/15 20:10 Order name: CMP; Complete Time: 22:21 cp 04/15 22:21 Interpretation: Normal except: NA 135; GLUC 123; GFR 65; AST 12; GLOB 4.0; A/G 1.0. cp 04/15 20:10 Order name: Lipase; Complete Time: 22:21 cp 04/15 20:10 Order name: Urinalysis w/ reflexes; Complete Time: 23:19 cp 04/15 23:19 Interpretation: Normal except: [facility] Extremely Turbid; UBLD 3+; UPROT 3+; UNIT 2+; UESTR cp 500; UWBC >50; URBC >50. 04/15 20:10 Order name: Lactate w/ 2H reflex if indic.; Complete Time: 22:21 04/15 23:20 Order name: Urine Culture EDIA 04/16 02:00 Order name: Urinalysis w/ reflexes EDIA 04/16 02:00 Order name: CBC with Automated Diff EDIA 04/16 02:00 Order name: CBC with Automated Diff EDMS 04/16 02:00 Order name: Comprehensive Metabolic Panel EDIA 04/16 02:00 Order name: Comprehensive Metabolic Panel [facility] 04/15 20:11 Order name: CT Abd/Pelvis - PO and IV Contrast; Complete Time: 23:00 04/15 23:02 Interpretation: Report reviewed. 04/15 20:10 Order name: IV Saline Lock; Complete Time: 20:14 04/15 20:10 Order name: Labs collected and sent; Complete Time: 20:31 cp Administered Medications: 20:31 Drug: NS 0.9% IV 1000 ml IV at 1 bolus Per protocol; 1000 mL bolus Route: IV; Rate: 1 km8 bolus; Site: left antecubital; 21:38 Follow up: IV Status: Completed infusion; IV Intake: 1000ml [facility] 20:31 Drug: Famotidine IVP 20 mg IVP once; dilute with 10 mL 0.9% NaCl; give over 2 minutes km8 Route: IVP; Site: left antecubital; 21:27 Follow up: Response: No adverse reaction [facility] 20:31 Drug: Ondansetron IVP 4 mg IVP once; over 2 minutes Route: IVP; Site: left antecubital; km8 21:26 Follow up: Response: No adverse reaction 20:31 Drug: HYDROmorphone IVP 1 mg IVP once Route: IVP; Site: left antecubital; km8 21:00 Follow up: Response: No adverse reaction; Pain is unchanged, physician notified 21:00 Drug: HYDROmorphone IVP 1 mg IVP once Route: IVP; Site: left antecubital; km8 21:38 Follow up: Response: Pain is decreased 23:35 Drug: Rocephin IV 1 grams IV at calculated rate once; Given slow IV push per pharmacy 8 instructions Route: IV; Rate: calculated rate; Site: left antecubital; 04/16 00:00 Follow up: IV Status: Completed infusion; IV Intake: 10ml 00:19 Drug: HYDROmorphone IVP 1 mg IVP once Route: IVP; Site: left antecubital; 00:50 Follow up: Response: No adverse reaction; Pain is decreased Disposition Summary: 04/15/24 23:40 Hospitalization Ordered Notes: Hospitalization Status: Inpatient Admission cp Provider: Fausto Pruitt cp Location: Telemetry/MedSurg (Inpatient) cp Condition: Stable cp Problem: new cp Symptoms: have improved cp Bed/Room Type: Standard Room Assignment: 403(04/16/24 02:03) Diagnosis - Acute cystitis without hematuria cp Forms: - Medication Reconciliation Form cp - SBAR form cp - Leadership Thank You Letter cp Signatures: Dispatcher [employer] EDMS Mar Pyle RN RN kl Page, Corey, PA PA cp Martinez, Clarissa, RN RN cm10 Karlie Birmingham RN RN km8 Corrections: (The following items were deleted from the chart) 04/15 19:57 19:54 Home Meds: losartan-hydrochlorothiazide Oral; cm10 cm10 19:57 19:54 Home Meds: Dilaudid; cm10 cm10 20:11 20:11 CBC+H.LAB.BRZ ordered. EDMS EDMS 20:11 20:11 COMPREHENSIVE METABOLIC PANEL+C.LAB.BRZ ordered. EDMS EDMS 20:11 20:11 LIPASE+C.LAB.BRZ ordered. EDMS EDMS 20:11 20:11 Urinalysis+U.LAB.BRZ ordered. EDMS EDMS 20:11 20:11 LACTATE+C.LAB.BRZ ordered. EDMS EDMS 22:21 20:51 Normal except: WBC 16.50; HCT 35.9. cp cp 04/16 02:03 04/15 23:40 cp kl
--- NOTE | 2024-04-15 23:41 | ER ---
Nurse's Notes [facility] Name: Adelita Lemons Age: 63 yrs Sex: Female : 1960 Arrival Date: 04/15/2024 Time: 19:25 Bed 5 Private MD: Diagnosis: Acute cystitis without hematuria Presentation: 04/15 19:52 Chief complaint: Patient states: Lower abdominal pain onset this morning. Pt states cm10 that she is also having nausea. Pt reports that her pain is similar to when she had her last bowel obstruction. Pt describes the pain as sharp and rates it a 10/10. Coronavirus screen: Client denies travel out of the [place] in the last 14 days. At this time, the client does not indicate any symptoms associated with coronavirus-19. Ebola Screen: Patient denies travel to an Ebola-affected area in the 21 days before illness onset. No symptoms or risks identified at this time. Initial Sepsis Screen: Does the patient meet any 2 criteria? HR > 90 bpm. Does the patient have a suspected source of infection? No. Patient's initial sepsis screen is negative. Risk Assessment: Do you want to hurt yourself or someone else? Patient reports no desire to harm self or others. Onset of symptoms was April 15, 2024. 19:52 Method Of Arrival: Wheelchair cm10 19:52 Acuity: CRISTAL 3 cm10 Triage Assessment: 19:53 General: Appears in no apparent distress. uncomfortable, Behavior is calm, cooperative. cm10 Neuro: No deficits noted. Level of Consciousness is awake, alert, obeys commands, Oriented to person, place, time, situation. Respiratory: No deficits noted. Airway is patent Respiratory effort is even, unlabored, Respiratory pattern is regular, symmetrical. Historical: - Allergies: 19:54 Amoxicillin; cm10 19:54 Bactrim; cm10 19:54 morphine-vomiting; cm10 - Home Meds: 19:54 losartan 50 mg oral tablet daily [Active]; hydrochlorothiazide 12.5 mg Oral capsule cm10 daily [Active]; cyclobenzaprine 10 mg Oral tablet 3 times per day [Active]; omeprazole 20 mg Oral Tablet,disintegrating,delayed release daily [Active]; gabapentin 400 mg oral capsule 3 times per day [Active]; dilaudid 4 mg three times a day [Active]; - PMHx: 19:54 chronic back pain; GERD; Hypertension; cm10 - PSHx: 19:54 Appendectomy; bowel resection; Cholecystectomy; Fibrous mass removed from abd; cm10 hysterectomy; L knee replacement; R hip replacement; right rotator cuff; - Immunization history:: Adult Immunizations up to date. - Infectious Disease History:: Denies. - Social history:: Smoking status: Patient denies any tobacco usage or history of. Screenin:15 [facility] ED Fall Risk Assessment (Adult) History of falling in the last 3 months, km8 including since admission No falls in past 3 months (0 pts) Confusion or Disorientation No (0 pts) Intoxicated or Sedated No (0 pts) Impaired Gait No (0 pts) Mobility Assist Device Used No (0 pt) Altered Elimination No (0 pt) Score/Fall Risk Level 0 - 2 = Low Risk Oriented to surroundings, Maintained a safe environment, Educated pt \T\ family on fall prevention, incl call for assistance when getting out of bed, Assessed \T\ reinforced patient's understanding of fall precautions. Abuse screen: Denies threats or abuse. Denies injuries from another. Nutritional screening: No deficits noted. Tuberculosis screening: No symptoms or risk factors identified. Assessment: 20:15 General: Appears in no apparent distress. uncomfortable, Behavior is calm, cooperative, km8 appropriate for age. Pain: Complains of pain in abdomen Pain currently is 10 out of 10 on a pain scale. Pain began gradually, Is continuous. Neuro: Level of Consciousness is awake, alert, obeys commands, Oriented to person, place, time, situation. Cardiovascular: Denies chest pain, shortness of breath, Patient's skin is warm and dry. Respiratory: Airway is patent Respiratory effort is even, unlabored, Respiratory pattern is regular, symmetrical. GI: Abdomen is non-distended, Bowel sounds present X 4 quads. Abdomen is tender to palpation X 4 quads. Reports lower abdominal pain, upper abdominal pain, nausea. : No signs and/or symptoms were reported regarding the genitourinary system. EENT: No signs and/or symptoms were reported regarding the EENT system. Derm: No signs and/or symptoms reported regarding the dermatologic system. Skin is intact, is healthy with good turgor, Skin is dry, Skin is pink, warm \T\ dry. normal, Skin temperature is warm. Musculoskeletal: No signs and/or symptoms reported regarding the musculoskeletal system. Range of motion: intact in all extremities. 21:00 Reassessment: Patient appears in no apparent distress at this time. No changes from km8 previously documented assessment. Patient and/or family updated on plan of care and expected duration. Pain level reassessed. Patient is alert, oriented x 3, equal unlabored respirations, skin warm/dry/pink. 21:09 Reassessment: placed on 2L of O2 due to SpO2 de-sating to 89% on RA. km8 21:26 Reassessment: Patient appears in no apparent distress at this time. Patient and/or 8 family updated on plan of care and expected duration. Pain level reassessed. Patient is alert, oriented x 3, equal unlabored respirations, skin warm/dry/pink. Patient states symptoms have improved. 22:03 Reassessment: Patient appears in no apparent distress at this time. No changes from km8 previously documented assessment. Patient and/or family updated on plan of care and expected duration. Pain level reassessed. Patient is alert, oriented x 3, equal unlabored respirations, skin warm/dry/pink. 23:33 Reassessment: Patient appears in no apparent distress at this time. Patient and/or 8 family updated on plan of care and expected duration. Pain level reassessed. Patient is alert, oriented x 3, equal unlabored respirations, skin warm/dry/pink. pt requesting pain medication. 04/16 00:26 Reassessment: Patient appears in no apparent distress at this time. No changes from km8 previously documented assessment. Patient and/or family updated on plan of care and expected duration. Pain level reassessed. Patient is alert, oriented x 3, equal unlabored respirations, skin warm/dry/pink. 01:30 Reassessment: Patient appears in no apparent distress at this time. Patient and/or km8 family updated on plan of care and expected duration. Pain level reassessed. Patient is alert, oriented x 3, equal unlabored respirations, skin warm/dry/pink. 02:24 Reassessment: Patient appears in no apparent distress at this time. No changes from km8 previously documented assessment. Patient and/or family updated on plan of care and expected duration. Pain level reassessed. Patient is alert, oriented x 3, equal unlabored respirations, skin warm/dry/pink. 02:30 Reassessment: report faxed to 4th floor and confirmed fax. 8 Vital Signs: 04/15 19:52 BP 177 / 96; Pulse 93; Resp 18; Temp 98.4; Pulse Ox 98% on R/A; Weight 83.91 kg; Height cm10 6 ft. 3 in. ; Pain 10/10; 20:30 BP 161 / 85; Pulse 86; Resp 18; Pulse Ox 97% on R/A; km8 21:00 BP 157 / 86; Pulse 85; Resp 16; Pulse Ox 92% on R/A; km8 21:30 BP 145 / 77; Pulse 92; Resp 16; Pulse Ox 100% on 2 lpm NC; km8 22:00 BP 144 / 78; Pulse 87; Resp 16; Pulse Ox 99% on 2 lpm NC; km8 22:48 BP 137 / 69; Pulse 84; Resp 16; Pulse Ox 95% on R/A; km8 23:00 BP 136 / 73; Pulse 84; Resp 16; Pulse Ox 99% ; km8 04/16 00:00 BP 123 / 69; Pulse 86; Resp 16; Pulse Ox 100% on 2 lpm NC; km8 01:00 BP 108 / 65; Pulse 69; Resp 16; Pulse Ox 95% on R/A; km8 02:00 BP 123 / 72; Pulse 73; Resp 16; Pulse Ox 96% on R/A; km8 03:00 BP 116 / 62; Pulse 65; Resp 16; Pulse Ox 100% on R/A; km8 04/15 19:52 Body Mass Index 23.12 (83.91 kg, 190.5 cm) cm10 04/15 19:52 Pain Scale: Adult cm10 Aminata Coma Score: 04/15 20:15 Eye Response: spontaneous(4). Motor Response: obeys commands(6). Verbal Response: km8 oriented(5). Total: 15. ED Course: 19:30 Patient arrived in ED. [email or web address] 19:31 Radames Carlos PA is PHCP. cp 19:31 Radames Phillips MD is Attending Physician. cp 19:53 Triage completed. cm10 19:57 Arm band placed on Patient placed in an exam room, on a stretcher. cm10 20:00 Vinnie, Karlie, RN is Primary Nurse. km8 20:15 Patient has correct armband on for positive identification. Bed in low position. Call km8 light in reach. Side rails up X 1. Provided Education on: call light use. Pulse ox on. NIBP on. Warm blanket given. 20:15 Missed attempt(s): 22 gauge in right antecubital area. Bleeding controlled, band aid km8 applied, catheter tip intact. 20:30 Inserted saline lock: 22 gauge in left antecubital area, using aseptic technique. Blood km8 collected. 20:31 Lactate w/ 2H reflex if indic. Sent. km8 20:31 CBC with Diff Sent. km8 20:31 CMP Sent. km8 20:31 Lipase Sent. km8 20:31 Urinalysis w/ reflexes Sent. km8 21:10 Oxygen administration via nasal cannula \T\ 2L/min Response to oxygen therapy: symptoms km8 improved. 22:[address] Scan. km8 22:35 CT Abd/Pelvis - PO and IV Contrast In Process Unspecified. EDMS 23:34 No provider procedures requiring assistance completed. km8 23:39 Fausto Pruitt MD is Hospitalizing Provider. 04/16 02:22 Patient admitted, IV remains in place. km8 Administered Medications: 04/15 20:31 Drug: NS 0.9% IV 1000 ml IV at 1 bolus Per protocol; 1000 mL bolus Route: IV; Rate: 1 km8 bolus; Site: left antecubital; 21:38 Follow up: IV Status: Completed infusion; IV Intake: 1000ml km8 20:31 Drug: Famotidine IVP 20 mg IVP once; dilute with 10 mL 0.9% NaCl; give over 2 minutes km8 Route: IVP; Site: left antecubital; 21:27 Follow up: Response: No adverse reaction km8 20:31 Drug: Ondansetron IVP 4 mg IVP once; over 2 minutes Route: IVP; Site: left antecubital; km8 21:26 Follow up: Response: No adverse reaction km8 20:31 Drug: HYDROmorphone IVP 1 mg IVP once Route: IVP; Site: left antecubital; km8 21:00 Follow up: Response: No adverse reaction; Pain is unchanged, physician notified km8 21:00 Drug: HYDROmorphone IVP 1 mg IVP once Route: IVP; Site: left antecubital; km8 21:38 Follow up: Response: Pain is decreased 23:35 Drug: Rocephin IV 1 grams IV at calculated rate once; Given slow IV push per pharmacy km8 instructions Route: IV; Rate: calculated rate; Site: left antecubital; 04/16 00:00 Follow up: IV Status: Completed infusion; IV Intake: 10ml 00:19 Drug: HYDROmorphone IVP 1 mg IVP once Route: IVP; Site: left antecubital; km8 00:50 Follow up: Response: No adverse reaction; Pain is decreased Medication: 04/15 20:15 VIS not applicable for this client. 8 Intake: 21:38 IV: 1000ml; Total: 1000ml. 8 04/16 00:00 IV: 10ml; Total: 1010ml. km8 Outcome: 04/15 23:40 Decision to Hospitalize by Provider. timbo 04/16 03:06 Admitted to Med/surg accompanied by tech, via wheelchair, room 403, with chart, km8 Condition: stable Instructed on the need for admit, Demonstrated understanding of instructions, 03:07 Patient left the ED. km8 Signatures: Dispatcher [employer] EDMS Radames Carlos PA PA cp Jeffries, Jennifer [id number] Deborah Fajardo, RN RN 10 Karlie Birmingham RN RN km8 Corrections: (The following items were deleted from the chart) 04/15 19:57 19:54 Home Meds: losartan-hydrochlorothiazide Oral; cm10 cm10 19:57 19:54 Home Meds: Dilaudid; cm10 cm10 22:08 21:30 BP 145 / 77; Pulse 92bpm; Resp 16bpm; Pulse Ox 100% RA; km8 km8
[2024-04-16] MEDS ORDERED: HYDROMORPHONE HCL 1 MG/ML INJ ONE (00:16)
[2024-04-16] MEDS ORDERED: ACETAMINOPHEN 325 MG TABLET PO PRN (01:55)
--- NOTE | 2024-04-16 01:59 | P.HP ---
Certification for Inpatient Patient admitted to: Inpatient With expected LOS: >2 Midnights Practitioner: I am a practitioner with admitting privileges, knowledge of patient current condition, hospital course, and medical plan of care. Services: Services provided to patient in accordance with Admission requirements found in Title 42 Section 412.3 of the Code of Federal Regulations Patient History Date of Service: 04/16/24 Reason for admission: Abdominal pain History of Present Illness: 63-year-old female with past medical history of hypertension, chronic back pain, GERD, history of sclerosing mesenteritis as per the patient, brought to ER with abdominal pain which has been diffuse has been going on for the last few days and has been progressively worsening. Associated with dysuria. No fever or chills. No nausea vomiting or diarrhea. Complains of severe pain in the back as well as to the flanks. Denies any chest pain or shortness of breath. Patient was assessed in the ER and was had a CT of the abdomen pelvis which showed Bladder wall thickening and hyperenhancement with bilateral hydroureter, urothelial thickening, and periureteric stranding concerning for cystitis with ascending urinary tract infection. No hydronephrosis. No ureteral calculi Patient is being admitted for pain control and pyelonephritis Allergies amoxicillin Allergy (Unverified 09/08/17 15:45) Unknown morphine-vomiting Allergy (Uncoded 09/08/17 15:45) Unknown - Past Medical/Surgical History Past Medical History: Reviewed- Non-Contributory -: Chronic back pain ,Hypertension Past Surgical History: Reviewed- Non-Contributory - Social History Smoking Status: Never smoker Review of Systems 10-point ROS is otherwise unremarkable Physical Examination - Vital Signs Temperature: 98.4 F Blood Pressure: 176/92 Pulse: 88 Respirations: 18 Pulse Ox (%): 94 - Physical Exam General: Alert, Oriented x3, Mild distress HEENT: Atraumatic, Normocephalic Neck: Supple, 2+ carotid pulse no bruit Respiratory: Clear to auscultation bilaterally, Normal air movement Cardiovascular: Normal pulses, Regular rate/rhythm, Normal S1 S2 Capillary refill: <2 Seconds Gastrointestinal: W/out hepatosplenomegaly, No masses, Tenderness Musculoskeletal: No clubbing, No swelling Integumentary: No rashes, No breakdown Neurological: Normal strength at 5/5 x4 extr, Cranial nerves 3-12 intact, Normal reflexes 2+, Normal affect Lymphatics: No axilla or inguinal lymphadenopathy - Studies Laboratory Data (last 24 hrs) 04/15/24 04/15/24 20:30 20:30 WBC 16.50 H Hgb 12.0 Hct 35.9 L Plt Count 274 Sodium 135 L Potassium 4.1 BUN 15 Creatinine 0.97 Glucose 123 H Total Bilirubin 0.4 AST 12 L ALT 17 Alkaline Phosphatase 87 Lipase 41 Assessment and Plan - Problems (Diagnosis) (1) Pyelonephritis Current Visit: Yes Status: Acute Plan: Pyelonephritis Pain control IV hydration IV Zosyn Monitor closely on telemetry Will obtain cultures Change antibiotic as per sensitivity Leukocytosis noted Will obtain CBC in a.m. Hyponatremia Started on IV hydration Monitor electrolytes and replace accordingly Hypertension Antihypertensives titrated Continue home medications and titrate as needed Chronic back pain Started on Dilaudid as she was not responding to morphine GI/DVT prophylaxis Advanced directive full code - Advance Directives Does patient have a Living Will: No Does patient have a Durable POA for Healthcare: No - Code Status/Comfort Care Code Status: Full Code Time Spent Managing Pts Care (In Minutes): 48
[2024-04-16] MEDS ORDERED: MORPHINE 4 MG/ML SYR IV PRN (02:13)
[2024-04-16] MEDS: HYDROMORPHONE HCL 1 MG/ML INJ IV PRN (04:06)
[2024-04-16] MEDS: NA CHLORIDE 0.9% 1,000 ML IV SCH (04:06)
[2024-04-16 04:35] VITALS: BMI 23.1
[2024-04-16] MEDS: ONDANSETRON 4 MG/2 ML VIAL IV PRN (07:10)
[2024-04-16] MEDS: ENOXAPARIN 40 MG/0.4 ML SQ SCH (08:07)
[2024-04-16] MEDS: PIPER TAZO 3.375 GM in NA CHLORIDE 0.9% 100 ML IV SCH (08:08)
[2024-04-16 10:19] LABS: Absolute Monocytes 0.9 K/uL (0.1-1.3); Absolute Neutrophil 8.8 K/uL (1.8-8.0); Basophils % 0.2 % (0-1.3); Eosinophils % 0.5 % (0-4.4); Hematocrit 31.4 % (36.0-45.0); Hemoglobin 10.5 g/dL (12.0-15.0); Lymphocytes % 9.3 % (15.3-44.8); MCH 28.1 pg (27.0-35.0); MCHC 33.4 g/dL (32.0-36.0); MCV 84.2 fL (80-100); MPV 8.1 fL (7.6-11.3); Monocytes % 8.1 % (3.3-12.3); Neutrophils % 81.9 % (41.7-73.7); Platelets 221 thou/uL (152-406); RBC Red Blood Cell Count 3.73 M/uL (3.86-4.86); Red Cell Distribution Width 13.8 % (12.1-15.2)
[2024-04-16 10:27] LABS: Anion Gap 5.8 mEq/L (5.0-15.0); Potassium 3.8 mEq/L (3.5-5.1)
[2024-04-16] MEDS: POTASSIUM CL SA 10 MEQ TAB PO ONE (11:32)
[2024-04-16] MEDS: PROMETHAZINE 25 MG TABLET PO PRN (11:32)
--- NOTE | 2024-04-16 22:36 | P.PN ---
Subjective Date of Service: 04/16/24 Patient is doing well. Patient was nauseated but overall patient's clinical symptoms are improving. Continue with IV fluids and IV antibiotics. Review of Systems 10-point ROS is otherwise unremarkable Physical Examination - Vital Signs Temperature: 97.4 F Blood Pressure: 165/82 Pulse: 78 Respirations: 15 Pulse Ox (%): 97 - Physical Exam General: Alert, In no apparent distress, Oriented x3 HEENT: Atraumatic, PERRLA, EOMI Neck: Supple, JVD not distended Respiratory: Clear to auscultation bilaterally, Normal air movement Cardiovascular: Regular rate/rhythm, Normal S1 S2, No murmurs Gastrointestinal: Normal bowel sounds, Soft and benign, Non-distended, No tenderness Musculoskeletal: No clubbing, No swelling, No tenderness Integumentary: No rashes Neurological: Normal strength at 5/5 x4 extr, Normal tone, Sensation intact, Cranial nerves 3-12 intact - Studies Medications List Reviewed: Yes Assessment & Plan - Problems (Diagnosis) (1) Intractable nausea and vomiting Current Visit: Yes Status: Acute (2) Chronic pain syndrome Current Visit: Yes Status: Acute (3) Hydroureter Current Visit: Yes Status: Acute (4) Sterile pyuria Current Visit: Yes Status: Acute (5) Leukocytosis Current Visit: Yes Status: Acute - Plan Plan: 1. Patient with pyuria without any evidence of bacteria in the urine; continue with IV fluids and monitor renal function. Patient is on numerous pain medication for chronic pain syndrome. Patient may have urinary retention. Will need to check for postvoid residual. 2. Chronic pain syndrome; continue with pain control. 3. Intractable nausea vomiting; continue with antiemetics 4. Bilateral hydroureters with perinephric stranding; continue with monitoring renal symptoms. 5. GI and DVT prophylaxis Discharge Plan: Home Plan to discharge in: Greater than 2 days - Advance Directives Does patient have a Living Will: No Does patient have a Durable POA for Healthcare: No - Code Status/Comfort Care Code Status: Full Code Critical Care: No Time Spent Managing PTS Care (In Minutes): 35
[2024-04-17 06:45] LABS: Absolute Eosinophils 0.1 K/uL (0-0.5); Absolute Lymphocytes (CBC) 0.9 K/uL (0.7-4.9); Absolute Monocytes 0.6 K/uL (0.1-1.3); Absolute Neutrophil 5.4 K/uL (1.8-8.0); Basophils % 0.4 % (0-1.3); Eosinophils % 1.3 % (0-4.4); Hemoglobin 9.8 g/dL (12.0-15.0); Lymphocytes % 12.4 % (15.3-44.8); MCH 28.3 pg (27.0-35.0); MCHC 33.6 g/dL (32.0-36.0); MCV 84.3 fL (80-100); MPV 8.1 fL (7.6-11.3); Monocytes % 8.4 % (3.3-12.3); Neutrophils % 77.5 % (41.7-73.7); Platelets 202 thou/uL (152-406); RBC Red Blood Cell Count 3.44 M/uL (3.86-4.86); Red Cell Distribution Width 13.6 % (12.1-15.2)
[2024-04-17 07:09] LABS: ALT/SGPT 15 U/L (13-56); Albumin/Globulin Ratio 0.9 (1.1-1.8); Alkaline Phosphatase 66 U/L (45-117); Anion Gap 4.7 mEq/L (5.0-15.0); BUN Blood Urea Nitrogen 13 mg/dL (7-18); Bicarbonate 31 mEq/L (21-32); Bilirubin Total 0.5 mg/dL (0.2-1.0); Globulin 3.2 g/dL (2.3-3.5); Glomerular Filtration Rate 75 ml/min (=/>90); Glucose Level 105 mg/dL (74-106); Potassium 3.7 mEq/L (3.5-5.1); Protein, Total 6.2 g/dL (6.4-8.2); Sodium Level 140 mEq/L (136-145)
[2024-04-17 07:10] LABS: AST/SGOT < 10 U/L (15-37)
--- NOTE | 2024-04-17 07:58 | RAD REPORT ---
EXAM DESCRIPTION: US - Renal Ultrasound-Complete - 04/17/2024 5:11 am CLINICAL HISTORY: MELODIE Flank pain COMPARISON: No comparisons FINDINGS: Both kidneys are normal in size, shape and echotexture. The right kidney measures 11.0 x 4.9 x 4.7 cm. No hydronephrosis, focal mass or perinephric fluid. The left kidney measures 9.2 x 5.4 x 4.6 cm. No hydronephrosis, focal mass or perinephric fluid. The urinary bladder is incompletely distended without gross abnormality seen. IMPRESSION: Unremarkable renal sonogram.
[2024-04-17] MEDS ORDERED: LACTULOSE 20 GM/30 ML UCUP PO PRN (12:16)
--- NOTE | 2024-04-17 12:22 | P.PN ---
Subjective Date of Service: 04/17/24 Chief Complaint: Abdominal pain Subjective: Improving (pain decreased, WBC down, IV abx continue. Will try to avoid constipation.) <Leeanne Jeffriesy Keo - Last Filed: 04/17/24 12:17> Date of Service: 04/17/24 <Bernadette Ashton - Last Filed: 04/17/24 13:52> Review of Systems 10-point ROS is otherwise unremarkable Gastrointestinal: As per HPI Musculoskeletal: As per HPI <Leeanne Jeffriesadis Crowley - Last Filed: 04/17/24 12:17> Physical Examination - Vital Signs Temperature: 97.3 F Blood Pressure: 170/82 Pulse: 82 Respirations: 16 Pulse Ox (%): 95 - Physical Exam General: Alert, In no apparent distress, Oriented x3, Other (mildly pale) HEENT: Atraumatic, Normocephalic Neck: Supple Respiratory: Normal air movement Cardiovascular: Normal pulses Capillary refill: <2 Seconds Gastrointestinal: Hypoactive, Soft and benign Musculoskeletal: No clubbing, No swelling Integumentary: No rashes Neurological: Normal speech, Normal tone, Normal affect Lymphatics: No axilla or inguinal lymphadenopathy External genitalia: Deferred Rectal: Deferred - Studies Medications List Reviewed: Yes <Leeanne Jeffriesy Keo - Last Filed: 04/17/24 12:17> Assessment And Plan - Plan - Problems (Diagnosis) (1) Pyelonephritis Current Visit: Yes Status: Acute Plan: Pyelonephritis Pain control IV hydration IV Zosyn Monitor closely on telemetry Will obtain cultures 04/17/24 prelim 4+ Gram neg rods Change antibiotic as per sensitivity 04/17/24 Leukocytosis improved Hyponatremia Started on IV hydration Monitor electrolytes and replace accordingly Hypertension Antihypertensives titrated Continue home medications and titrate as needed Chronic back pain/Chronic sclerosing mesenteritis Started on Dilaudid as she was not responding to morphine GI/DVT prophylaxis Advanced directive full code - Advance Directives Does patient have a Living Will: No Does patient have a Durable POA for Healthcare: No <JeffriesLeeanneadis Crowley - Last Filed: 04/17/24 12:17> - Plan Pt seen and examined. I agree with the note by the FIELD SERVICE REPRESENTATIVE. Will continue zosyn for the pyelonephritis. Monitor electrolytes and continue other home meds. <Bernadette Ashton - Last Filed: 04/17/24 13:52>
[2024-04-17] MEDS: LACTULOSE 20 GM/30 ML UCUP PO SCH (12:38)
[2024-04-18 00:55] VITALS: O2SAT 95
[2024-04-18] MEDS: HYDROCODONE/APAP 7.5/325 MG TAB PO PRN (04:39)
[2024-04-18 09:18] LABS: Anion Gap 8.3 mEq/L (5.0-15.0); Potassium 3.3 mEq/L (3.5-5.1)
[2024-04-18 10:25] VITALS: TEMP 98.3
[2024-04-18] MEDS: POTASSIUM 25 MEQ EFFERV TAB PO ONE (11:36)
--- NOTE | 2024-04-18 12:39 | P.DS ---
Admission Date: 04/16/24 Discharge Date: 04/18/24 Reason for Admission: Abdominal pain Procedures: None Brief History of Present Illness: 63-year-old female with past medical history of hypertension, chronic back pain, GERD, history of sclerosing mesenteritis as per the patient, brought to ER with abdominal pain which has been diffuse has been going on for the last few days and has been progressively worsening. Associated with dysuria. No fever or chills. No nausea vomiting or diarrhea. Complains of severe pain in the back as well as to the flanks. Denies any chest pain or shortness of breath. Patient was assessed in the ER and was had a CT of the abdomen pelvis which showed Bladder wall thickening and hyperenhancement with bilateral hydroureter, urothelial thickening, and periureteric stranding concerning for cystitis with ascending urinary tract infection. No hydronephrosis. No ureteral calculi Hospital Course: Ms. Lemons did well over the course of her hospitalization. She was very relieved after bowel movement. Urine culture + for E. coli. Will discharge on Cipro BID x 10 days, Lactulose prn, and probiotics. <Sahra Jeffries - Last Filed: 04/18/24 13:54> Admission Date: 04/16/24 Discharge Date: 04/18/24 Hospital Course: Pt seen and examined. I agree with the note by the HOME STEREO EQUIPMENT INSTALLER. Ok to discharge pt with Cipro 500mg po BID. Urine cx is growing E. coli. <Bernadette Ashton - Last Filed: 04/18/24 14:20> Disposition: ROUTINE DISCHARGE Vital Signs/Physical Exam: Temp Pulse Resp BP Pulse Ox 98.3 F 88 14 157/77 H 91 04/18/24 08:00 04/18/24 08:00 04/18/24 10:12 04/18/24 08:00 04/18/24 08:00 General: Alert, In no apparent distress, Oriented x3 HEENT: Atraumatic, Normocephalic Neck: Supple Respiratory: Clear to auscultation bilaterally Cardiovascular: No edema, Normal pulses Capillary refill: <2 Seconds Gastrointestinal: Normal bowel sounds, Soft and benign, Other (Constipation relieved ) Musculoskeletal: No clubbing, No swelling Integumentary: No rashes Neurological: Normal speech, Normal tone, Normal affect Lymphatics: No axilla or inguinal lymphadenopathy External genitalia: Deferred Rectal: Deferred Laboratory Data at Discharge: WBC Cancelled 04/17/24 08:42 Hgb Cancelled 04/17/24 08:42 Hct Cancelled 04/17/24 08:42 Plt Count Cancelled 04/17/24 08:42 Sodium 141 mEq/L (136-145) 04/18/24 08:45 Potassium 3.3 mEq/L (3.5-5.1) L 04/18/24 08:45 BUN 10 mg/dL (7-18) 04/18/24 08:45 Creatinine 0.90 mg/dL (0.55-1.02) 04/18/24 08:45 Glucose 139 mg/dL (74-106) H 04/18/24 08:45 Total Bilirubin 0.5 mg/dL (0.2-1.0) 04/17/24 06:24 AST < 10 U/L (15-37) L 04/17/24 06:24 ALT 15 U/L (13-56) 04/17/24 06:24 Alkaline Phosphatase 66 U/L (45-117) 04/17/24 06:24 Lipase 41 U/L (13-75) 04/15/24 20:30 <Jeffries,Sahra Keo - Last Filed: 04/18/24 13:54> Vital Signs/Physical Exam: Temp Pulse Resp BP Pulse Ox 98.3 F 85 18 169/83 H 96 04/18/24 12:00 04/18/24 12:00 04/18/24 14:02 04/18/24 12:00 04/18/24 14:02 Laboratory Data at Discharge: WBC Cancelled 04/17/24 08:42 Hgb Cancelled 04/17/24 08:42 Hct Cancelled 04/17/24 08:42 Plt Count Cancelled 04/17/24 08:42 Sodium 141 mEq/L (136-145) 04/18/24 08:45 Potassium Cancelled 04/18/24 17:30 BUN 10 mg/dL (7-18) 04/18/24 08:45 Creatinine 0.90 mg/dL (0.55-1.02) 04/18/24 08:45 Glucose 139 mg/dL (74-106) H 04/18/24 08:45 Total Bilirubin 0.5 mg/dL (0.2-1.0) 04/17/24 06:24 AST < 10 U/L (15-37) L 04/17/24 06:24 ALT 15 U/L (13-56) 04/17/24 06:24 Alkaline Phosphatase 66 U/L (45-117) 04/17/24 06:24 Lipase 41 U/L (13-75) 04/15/24 20:30 <Bernadette Ashton - Last Filed: 04/18/24 14:20> Diet: [place] Activity: Ad elen <Sahra Jeffrieslen - Last Filed: 04/18/24 13:54> <Bernadette Ashton - Last Filed: 04/18/24 14:20> Home Medications: Baclofen 20 mg PO BEDTIME 04/17/24 Cholecalciferol (Vitamin D3) [Vitamin D 5,000 IU Cap*] 5,000 units PO DAILY 04/17/24 Cyclobenzaprine HCl [Flexeril] 10 mg PO TID 04/17/24 Gabapentin 400 mg PO TID 04/17/24 Hydromorphone [Dilaudid*] 4 tab PO TID 04/17/24 Losartan Potassium 50 mg PO BID 04/17/24 Niacin (Inositol Niacinate) [Niacin 500 mg Capsule] 500 cap PO DAILY 04/17/24 Omeprazole 20 mg PO DAILY 04/17/24 Tizanidine [Zanaflex*] 4 tab PO DAILY 04/17/24 Ciprofloxacin HCl [Cipro 500 MG Tablet] 500 mg PO BID #20 tab 04/18/24 Lactobacillus Acidophilus [Intestinex] 680 mg PO DAILY #90 cap 04/18/24 Lactulose 30 ml PO BID PRN #360 ml 04/18/24 Lactulose [Cephulac*] 30 ml PO BID PRN #480 ml 04/18/24 New Medications: Lactulose [Cephulac*] 30 ml PO BID PRN #480 ml PRN Reason: Constipation Ciprofloxacin HCl [Cipro 500 MG Tablet] 500 mg PO BID #20 tab Lactobacillus Acidophilus [Intestinex] 680 mg PO DAILY #90 cap Lactulose 30 ml PO BID PRN #360 ml PRN Reason: Constipation Physician Discharge Instructions: Okay to DC IV and DC home Follow-up with primary care provider in 1 to 2 weeks Follow-up with gastroenterology in 1 to 2-weeks Please call the inpatient unit for any questions or concerns regarding hospital stay Return to the ER for worsening symptoms Ms. Lemons did well over the course of her hospitalization. She was very relieved after bowel movement. Urine culture + for E. coli. Will discharge on Cipro BID x 10 days, Lactulose prn, and probiotics. Followup: Ignacio Mckenzie MD [Primary Care Provider] - 1-2 Weeks
[2024-04-18 13:55] VITALS: BP 169/83
[2024-04-18] MEDS: HYDROMORPHONE HCL 1 MG/ML INJ IV ONE (14:02)
[2024-04-18] MEDS ORDERED: CIPROFLOXACIN HCL 500 MG TAB PO SCH (21:00)
== END 2024-04-18 15:59 | disposition home or self-care (01) | DRG 690 ==
LOC: ER 19:25 → 4TH 04-16 01:55
PROVIDERS: ADMIT Family Medicine; ATTEND Hospitalist
DX: N10 Acute pyelonephritis (principal); E87.1 Hypo-osmolality and hyponatremia; K65.4 Sclerosing mesenteritis; I10 Essential (primary) hypertension; G89.4 Chronic pain syndrome; M54.9 Dorsalgia, unspecified; K59.00 Constipation, unspecified; K21.9 Gastro-esophageal reflux disease without esophagitis; B96.20 Unspecified Escherichia coli [E. coli] as the cause of diseases classified elsewhere; R82.81 Pyuria; R33.9 Retention of urine, unspecified; Z88.5 Allergy status to narcotic agent; Z88.1 Allergy status to other antibiotic agents; Z90.49 Acquired absence of other specified parts of digestive tract; Z96.652 Presence of left artificial knee joint; Z96.641 Presence of right artificial hip joint; Z79.899 Other long term (current) drug therapy; Z90.710 Acquired absence of both cervix and uterus
CPT/HCPCS: 36415; 74177; 76770; 80048; 80053; 81001; 83605; 83690; 85025; 87077; 87086; 87088; 87186; 96361; 96365; 96375; 99285; J0696; J1170; J1650; J2405; J2543; J7030; Q0169; Q9967

== ENCOUNTER 2024-11-19 02:35 | Emergency (ER) | payer OTHER ==
--- OUTSIDE RECORDS SUMMARY | 2024-11-19 02:38 | XMS REPORT | Clinical Summary ---
Author Name Unknown Organization [facility] Address [address] [place] [address] Care Team Providers Care Bridal Consultant Name Role Phone Madison Manning Unavailable Social History Tobacco Use Types Packs/Day Years Used Date Smoking Tobacco: Never Assessed Comments Unknown Sex and Gender Information Value Date Recorded Sex Assigned at Not on file Legal Sex Female 1:51 PM CDT Gender Identity Not on file Sexual Orientation Not on file Plan of Treatment Not on file Insurance Care Teams Bridal Consultant Relationship Specialty Start Date End Date Madison Manning PCP - External Follow Up A 03/19/22
[2024-11-19] MEDS ORDERED: ONDANSETRON 4 MG/2 ML VIAL ONE (03:28)
[2024-11-19] MEDS ORDERED: HYDROMORPHONE HCL 2 MG/ML inj ONE ×3 (03:29→04:42)
[2024-11-19 03:59] LABS: Hemoglobin 10.7 g/dL (12.0-15.0)
[2024-11-19 04:11] LABS: ALT/SGPT 21 U/L (13-56); AST/SGOT 31 U/L (15-37); Albumin 3.4 g/dL (3.4-5.0); Albumin/Globulin Ratio 1.1 (1.1-1.8); Alkaline Phosphatase 63 U/L (45-117); Anion Gap 9.8 mEq/L (5.0-15.0); BUN Blood Urea Nitrogen 27 mg/dL (7-18); Bicarbonate 29 mEq/L (21-32); Bilirubin Direct < 0.2 mg/dL (0-0.2); Bilirubin Indirect, Calculated 0.2 mg/dL (0.2-0.8); Bilirubin Total 0.4 mg/dL (0.2-1.0); Globulin 3.2 g/dL (2.3-3.5); Glomerular Filtration Rate 54 ml/min (=/>90); Glucose Level 107 mg/dL (74-106); NT PRO-BNP 249 pg/mL (<125); Potassium 3.8 mEq/L (3.5-5.1); Protein, Total 6.6 g/dL (6.4-8.2); Sodium Level 141 mEq/L (136-145); Troponin High Sensitivity 29.1 pg/mL (<58.9)
[2024-11-19] MEDS ORDERED: NA CHLORIDE 0.9% 1,000 ML ONE (04:12)
[2024-11-19 04:14] LABS: Absolute Basophils 0.1 K/uL (0-0.5); Absolute Eosinophils 0.2 K/uL (0-0.5); Absolute Lymphocytes (CBC) 1.3 K/uL (0.7-4.9); Absolute Monocytes 0.4 K/uL (0.1-1.3); Absolute Neutrophil 4.2 K/uL (1.8-8.0); Basophils % 0.8 % (0-1.3); Eosinophils % 2.5 % (0-4.4); Hematocrit 31.5 % (36.0-45.0); Lymphocytes % 20.6 % (15.3-44.8); MCH 29.4 pg (27.0-35.0); MCV 86.4 fL (80-100); MPV 8.4 fL (7.6-11.3); Monocytes % 7.3 % (3.3-12.3); Neutrophils % 68.8 % (41.7-73.7); Nucleated Red Blood Cells % 0.1 % (0-0); Platelets 240 thou/uL (152-406); RBC Red Blood Cell Count 3.65 M/uL (3.86-4.86); Red Cell Distribution Width 13.2 % (12.1-15.2)
--- NOTE | 2024-11-19 06:04 | RAD REPORT ---
ADDENDUM #1 THIS REPORT CONTAINS FINDINGS THAT MAY BE CRITICAL TO PATIENT CARE: The findings were verbally discus sed via telephone conference with Dr. Tiburcio Burgess 5:57 AM central time November 19, 2024. The results were acknowledged and understood. Electronically signed by: Gissell Cotton MD 11/19/2024 05:58 AM [facility] [place] End of Addendum EXAM: CT Head and Cervical Spine Without Intravenous Contrast CLINICAL HISTORY: The patient is 64 years old and is Female; Fall. TECHNIQUE: Axial computed tomography images of the head/brain and cervical spine without intravenou s contrast. Sagittal and coronal reformatted images were created and reviewed. This CT exam was performed using one or more of the following dose reduction techniques: automated exposure control, adjustment of the mA and/or kV according to patient size, and/or use of iterative reconstruction technique. COMPARISON: CT Head 05/15/2024. FINDINGS: Brain: Unremarkable. No hemorrhage. No significant white matter disease. No edema. Ventricles: Unremarkable. No ventriculomegaly. Skull: No acute fracture. Sinuses: Unremarkable as visualized. No acute sinusitis. Mastoid air cells: Unremarkable as visualized. No mastoid fluid. Vertebrae: Right C6-7 jumped facet with acute fractures in the right C7 superior facet. Left C6-7 perched facet. 7 mm subluxation of C6 on C7. Multilevel degenerative facet arthropathy on the left. Discs/spinal canal/neural foramina: Degenerative disc disease C5-6 and C6-7. No spinal canal stenosis. Soft tissues: Unremarkable. Pleural space: No apical pneumothorax. IMPRESSION: 1. Right C6-7 jumped facet with acute fractures in the right C7 superior facet. Left C6-7 perched f acet. 2. 7 mm subluxation of C6 on C7. 3. Multilevel degenerative changes. 4. No acute intracranial findings. No hemorrhage. Electronically signed by: Gissell Cotton MD 11/19/2024 05:52 AM [facility] [place] Due to temporary technical issues with the PACS/[employer] reporting system, reports are being fco d by the in-house radiologist without review as a courtesy to ensure prompt reporting the interpreting radiologist is fully responsible for the content of the report. Transcribed Date/Time: 11/19/2024 6:04 AM
--- NOTE | 2024-11-19 06:05 | RAD REPORT ---
EXAM: CT Chest, Abdomen and Pelvis Without Intravenous Contrast CLINICAL HISTORY: The patient is 64 years old and is Female; Fall. TECHNIQUE: Axial computed tomography images of the chest, abdomen and pelvis without intravenous co ntrast. Sagittal and coronal reformatted images were created and reviewed. This CT exam was performed using one or more of the following dose reduction techniques: automated exposure control, adjustment of the mA and/or kV according to patient size, and/or use of iterative reconstruction technique. COMPARISON: CT Chest abdomen pelvis 05/15/2024. FINDINGS: CHEST: Lungs: Dependent changes in the lungs. Pleural space: No pleural effusion or pneumothorax. Heart: Unremarkable. No cardiomegaly. No significant pericardial effusion. No significant c oronary artery calcifications. ABDOMEN: Liver: Unremarkable. Gallbladder and bile ducts: Cholecystectomy with mild biliary dilatation. No choledocholithiasis visualized. Pancreas: Unremarkable. No ductal dilation. Spleen: Unremarkable. No splenomegaly. Adrenals: Unremarkable. No mass. Kidneys and ureters: Unremarkable. No obstructing stones. No hydronephrosis. Stomach and bowel: Previous bowel resection/anastomosis. No bowel dilatation or obstruction. No b owel wall thickening. No gastric wall thickening. PELVIS: Appendix: No findings to suggest acute appendicitis. Bladder: Unremarkable. No stones. Reproductive: Uterus is small or removed. No adnexal mass visualized. CHEST, ABDOMEN and PELVIS: Intraperitoneal space: Unremarkable. No significant fluid collection. No free air. Bones/joints: No acute sternal fracture. No sternoclavicular joint dislocation. Scoliosis. Multilevel degenerative disc disease in the lumbar spine degenerative disc disease T11-12. Right total hip arthroplasty hardware. No dislocation or acute fracture in the pelvis or proximal femora. Soft tissues: Unremarkable. Vasculature: Unremarkable. No aortic aneurysm. Lymph nodes: Unremarkable. No enlarged lymph nodes. IMPRESSION: 1. No acute injury identified in the chest, abdomen or pelvis. Study performed without IV contrast. 2. Additional non-emergent findings as above. Electronically signed by: Gissell Cotton MD 11/19/2024 05:58 AM [facility] [place] Due to temporary technical issues with the PACS/[employer] reporting system, reports are being fco d by the in-house radiologist without review as a courtesy to ensure prompt reporting the interpreting radiologist is fully responsible for the content of the report. Transcribed Date/Time: 11/19/2024 6:04 AM
--- NOTE | 2024-11-19 06:36 | ER ---
Nurse's Notes [facility] Name: Adelita Lemons Age: 64 yrs Sex: Female : 1960 Arrival Date: 11/19/2024 Time: 02:35 Bed 7 Private MD: Diagnosis: Right C6-7 jumped facet, acute fractures in the right C7 superior facet. Subluxation C6 on C7, Acute left arm and left leg paresis. Presentation: 11/19 02:43 Chief complaint: Patient states: I was going back to bed and slipped and fell striking bm8 the left side of my head. I did not lose consciousness. My head and neck. Coronavirus screen: Vaccine status: Patient reports receiving the 2nd dose of the covid vaccine. At this time, the client does not indicate any symptoms associated with coronavirus-19. Ebola Screen: Patient negative for fever greater than or equal to 101.5 degrees Fahrenheit, and additional compatible Ebola Virus Disease symptoms Patient denies exposure to infectious person. Patient denies travel to an Ebola-affected area in the 21 days before illness onset. No symptoms or risks identified at this time. Initial Sepsis Screen: Does the patient meet any 2 criteria? No. Patient's initial sepsis screen is negative. Does the patient have a suspected source of infection? No. Patient's initial sepsis screen is negative. Risk Assessment: Do you want to hurt yourself or someone else? Patient reports no desire to harm self or others. Onset of symptoms was November 19, 2024 at 02:00. 02:43 Method Of Arrival: EMS: [facility] bm8 02:43 Acuity: CRISTAL 3 bm8 02:50 Care prior to arrival: Cervical collar in place. bm8 Triage Assessment: 02:45 General: Appears in no apparent distress. uncomfortable, Behavior is calm, cooperative, bm8 appropriate for age. Pain: Complains of pain in head, posterior cervical area and thoracic area Pain currently is 10 out of 10 on a pain scale. Quality of pain is described as aching, crushing. EENT: No deficits noted. No signs and/or symptoms were reported regarding the EENT system. Neuro: No deficits noted. Level of Consciousness is awake, alert, obeys commands, Oriented to person, place, time, situation, Appropriate for age. Cardiovascular: No deficits noted. Heart tones S1 S2 present. Respiratory: Airway is patent Trachea midline Respiratory effort is even, unlabored, Respiratory pattern is regular, symmetrical. GI: No signs and/or symptoms were reported involving the gastrointestinal system. : No signs and/or symptoms were reported regarding the genitourinary system. Derm: No signs and/or symptoms reported regarding the dermatologic system. Musculoskeletal: Circulation, motion, and sensation intact. Capillary refill < 3 seconds, in bilateral fingers. Range of motion: intact in all extremities, Reports pain in head neck and back. Historical: - Allergies: 02:45 Amoxicillin; bm8 02:45 Bactrim; bm8 02:45 morphine-vomiting; bm8 - Home Meds: 02:45 cyclobenzaprine 10 mg Oral tablet 3 times per day [Active]; Dilaudid 4 mg three times a bm8 day [Active]; gabapentin 400 mg Oral capsule 3 times per day [Active]; hydrochlorothiazide 12.5 mg Oral capsule daily [Active]; losartan 50 mg Oral tablet daily [Active]; losartan-hydrochlorothiazide Oral [Active]; omeprazole 20 mg Oral Tablet daily [Active]; Omeprazole Oral [Active]; - PMHx: 02:45 chronic back pain; GERD; Hypertension; bm8 - PSHx: 02:45 Appendectomy; right rotator cuff; R hip replacement; L knee replacement; hysterectomy; bm8 Fibrous mass removed from abd; Cholecystectomy; bowel resection; - Immunization history:: Adult Immunizations up to date. - Infectious Disease History:: Denies. - Social history:: Smoking status: Patient denies any tobacco usage or history of. - Family history:: not pertinent. Screenin:57 [facility] ED Fall Risk Assessment (Adult) History of falling in the last 3 months, ay including since admission Yes- single mechanical fall (1 pt) Confusion or Disorientation No (0 pts) Intoxicated or Sedated No (0 pts) Impaired Gait No (0 pts) Mobility Assist Device Used Yes (1 pt) Altered Elimination No (0 pt) Score/Fall Risk Level 0 - 2 = Low Risk Oriented to surroundings, Maintained a safe environment, Educated pt \T\ family on fall prevention, incl call for assistance when getting out of bed. Abuse screen: Denies threats or abuse. Denies injuries from another. Nutritional screening: No deficits noted. Tuberculosis screening: No symptoms or risk factors identified. Assessment: 02:57 General: Appears in no apparent distress. uncomfortable, Behavior is calm, cooperative. ay Pain: Complains of pain in neck pain Pain currently is 10 out of 10 on a pain scale. Neuro: Level of Consciousness is awake, alert, obeys commands, Oriented to person, place, time, situation, Speech is normal. Cardiovascular: Denies chest pain, nausea, vomiting, Capillary refill < 3 seconds. Respiratory: Airway is patent Respiratory effort is even, unlabored, Respiratory pattern is regular, symmetrical. GI: Abdomen is round. : No signs and/or symptoms were reported regarding the genitourinary system. EENT: No signs and/or symptoms were reported regarding the EENT system. Derm: No signs and/or symptoms reported regarding the dermatologic system. Musculoskeletal: No signs and/or symptoms reported regarding the musculoskeletal system. 05:53 Reassessment: Patient appears in no apparent distress at this time. Patient is alert, ay oriented x 3, equal unlabored respirations, skin warm/dry/pink. Pain decreased. 06:48 Reassessment: Report called in to DISHA Bone. ay Vital Signs: 02:43 BP 208 / 102; Pulse 76; Resp 19; Temp 97.8; Pulse Ox 95% ; Weight 81.65 kg; Height 6 bm8 ft. 3 in. ; Pain 10/10; 03:44 BP 179 / 94; Pulse 74; Resp 18; Temp 97.8; Pulse Ox 94% ; Pain 10/10; bm8 05:54 BP 123 / 65; Pulse 86; Resp 18; Pulse Ox 96% on 2 lpm NC; ay 02:43 Body Mass Index 22.50 (81.65 kg, 190.5 cm) bm8 02:43 Pain Scale: Adult bm8 03:44 Pain Scale: Adult bm8 [place] Coma Score: 02:57 Eye Response: spontaneous(4). Motor Response: obeys commands(6). Verbal Response: ay oriented(5). Total: 15. 06:15 Eye Response: spontaneous(4). Motor Response: obeys commands(6). Verbal Response: sp4 oriented(5). Total: 15. ED Course: 02:42 Patient arrived in ED. bm8 02:45 Triage completed. bm8 02:45 Arm band placed on right wrist. bm8 02:57 Yakubu, Awudu, RN is Primary Nurse. ay 02:57 Patient has correct armband on for positive identification. Bed in low position. Call ay light in reach. Side rails up X2. Adult w/ patient. Provided Education on: plan of care. 02:57 Inserted saline lock: 22 gauge in left hand, using aseptic technique. ay 03:22 Tiburcio Burgess MD is Attending Physician. sp4 03:43 Head C Spine Mpr Wo Con In Process Unspecified. EDMS 03:43 Chest Abd Pelvis Wo Con In Process Unspecified. EDMS 03:44 Initial lab(s) drawn, by me, sent to lab. ay 05:30 Holman cath inserted, using sterile technique, 16 Fr.. ay 06:18 No provider procedures requiring assistance completed. bm8 06:20 Oxygen administration via nasal cannula \T\ 2L/min. bm8 06:36 [facility] called ETA 10-12 min. eb 07:00 Patient transferred, IV remains in place. ay Administered Medications: 03:35 Drug: HYDROmorphone IVP 2 mg IVP once Route: IVP; Site: right hand; ay 04:45 Follow up: Response: No adverse reaction; Pain is unchanged, physician notified ay 03:35 Drug: Ondansetron IVP 4 mg IVP once; over 2 minutes Route: IVP; Site: right hand; ay 04:44 Follow up: Response: No adverse reaction ay 04:17 Drug: NS 0.9% IV 1000 ml IV at 125 ml/hr Per protocol; to be given as a bolus over 60 ay minutes Route: IV; Rate: 125 ml/hr; Site: left hand; 04:44 Drug: HYDROmorphone IVP 2 mg IVP once Route: IVP; Site: left hand; ay 06:02 Follow up: Response: No adverse reaction; Pain is decreased ay 06:16 Follow up: Response: No adverse reaction bm8 Medication: 02:57 VIS not applicable for this client. ay Outcome: 06:36 ER care complete, transfer ordered by . sp4 07:00 Transferred by helicopter to [facility], Transfer form ay completed. 07:00 Condition: stable 07:00 Instructed on the need for transfer, 07:04 Patient left the ED. ay Signatures: Dispatcher [employer] EDMartha Green eb Potepalov, Tiburcio, MD MD sp4 Johnathan Chilel, RN RN bm8 Jesus Patel RN RN ay
--- NOTE | 2024-11-19 06:36 | EDPHYS ---
Physician Documentation [facility] Name: Adelita Lemons Age: 64 yrs Sex: Female : 1960 Arrival Date: 11/19/2024 Time: 02:35 Bed 7 Private MD: ED Physician Tiburcio Burgess HPI: 11/19 03:23 This 64 yrs old Female presents to ER via EMS with complaints of Fall Injury. sp4 06:15 64-year-old female presents with acute neck pain associated with moderate to severe sp4 neck injury via falling off the bed. Patient also reported associated weakness in the left arm and left leg. Patient was not able to ambulate at home. Presents with c-collar in place. . Historical: - Allergies: 02:45 Amoxicillin; bm8 02:45 Bactrim; bm8 02:45 morphine-vomiting; bm8 - Home Meds: 02:45 cyclobenzaprine 10 mg Oral tablet 3 times per day [Active]; Dilaudid 4 mg three times a bm8 day [Active]; gabapentin 400 mg Oral capsule 3 times per day [Active]; hydrochlorothiazide 12.5 mg Oral capsule daily [Active]; losartan 50 mg Oral tablet daily [Active]; losartan-hydrochlorothiazide Oral [Active]; omeprazole 20 mg Oral Tablet daily [Active]; Omeprazole Oral [Active]; - PMHx: 02:45 chronic back pain; GERD; Hypertension; bm8 - PSHx: 02:45 Appendectomy; right rotator cuff; R hip replacement; L knee replacement; hysterectomy; bm8 Fibrous mass removed from abd; Cholecystectomy; bowel resection; - Immunization history:: Adult Immunizations up to date. - Infectious Disease History:: Denies. - Social history:: Smoking status: Patient denies any tobacco usage or history of. - Family history:: not pertinent. ROS: 06:15 Constitutional: Negative for fever, chills, and weight loss, positive for acute sp4 moderate to severe neck pain and neck injury positive for left-sided weakness 06:15 All other systems are negative, Exam: 06:15 Constitutional: This is a well developed, well nourished patient who is awake, alert, sp4 in acute pain. Head/Face: Normocephalic, atraumatic. Eyes: Pupils equal round and reactive to light, extra-ocular motions intact. Lids and lashes normal. Conjunctiva and sclera are not injected. Cornea within normal limits. Periorbital areas with no swelling, redness, or edema. ENT: Nares patent. No nasal discharge, no septal abnormalities noted. Tympanic membranes are normal and external auditory canals are clear. Oropharynx with no redness, swelling, or masses, exudates, or evidence of obstruction, uvula midline. Mucous membranes moist. Neck: Trachea midline, no thyromegaly or masses palpated, and no cervical lymphadenopathy. Neck is in c-collar. Patient has posterior neck midline tenderness. Further exam not possible secondary to c-collar. Chest/axilla: Normal chest wall appearance and motion. Nontender with no deformity. No lesions are appreciated. Cardiovascular: Regular rate and rhythm with a normal S1 and S2. No gallops, murmurs, or rubs. Normal PMI, no JVD. No pulse deficits. Respiratory: Lungs have equal breath sounds bilaterally, clear to auscultation and percussion. No rales, rhonchi or wheezes noted. No increased work of breathing, no retractions or nasal flaring. Abdomen/GI: Soft, with normal bowel sounds. No distension or tympany. No guarding or rebound. No evidence of tenderness throughout. Back: No spinal tenderness. No costovertebral tenderness. Skin: Warm, dry with normal turgor. Normal color with no rashes, no lesions, and no evidence of cellulitis. MS/ Extremity: Pulses equal, no cyanosis. Neurovascular intact. Full, normal range of motion. Neuro: Awake and alert, GCS 15, oriented to person, place, time, and situation. Cranial nerves II-XII grossly intact. Left arm weakness 4 out of 5, left hand weakness 4 out of 5, left lower extremity weakness 3 out of 5. Decreased sensation left lower extremity. Normal sensation left upper extremity. The right sided strength is normal. Nonambulatory at this time. Psych: Awake, alert, with orientation to person, place and time. Behavior, mood, and affect are within normal limits Vital Signs: 02:43 BP 208 / 102; Pulse 76; Resp 19; Temp 97.8; Pulse Ox 95% ; Weight 81.65 kg; Height 6 bm8 ft. 3 in. ; Pain 10/10; 03:44 BP 179 / 94; Pulse 74; Resp 18; Temp 97.8; Pulse Ox 94% ; Pain 10/10; bm8 05:54 BP 123 / 65; Pulse 86; Resp 18; Pulse Ox 96% on 2 lpm NC; ay 02:43 Body Mass Index 22.50 (81.65 kg, 190.5 cm) bm8 02:43 Pain Scale: Adult bm8 03:44 Pain Scale: Adult bm8 Aminata Coma Score: 02:57 Eye Response: spontaneous(4). Motor Response: obeys commands(6). Verbal Response: ay oriented(5). Total: 15. 06:15 Eye Response: spontaneous(4). Motor Response: obeys commands(6). Verbal Response: sp4 oriented(5). Total: 15. MDM: 03:23 Medical Screening Exam initiated sp4 06:07 ED course: End of Addendum EXAM: CT Head and Cervical Spine Without Intravenous sp4 Contrast CLINICAL HISTORY: The patient is 64 years old and is Female; Fall. TECHNIQUE: Axial computed tomography images of the head/brain and cervical spine without intravenous contrast. Sagittal and coronal reformatted images were created and reviewed. This CT exam was performed using one or more of the following dose reduction techniques: automated exposure control, adjustment of the mA and/or kV according to patient size, and/or use of iterative reconstruction technique. COMPARISON: CT Head 05/15/2024. FINDINGS: Brain: Unremarkable. No hemorrhage. No significant white matter disease. No edema. Ventricles: Unremarkable. No ventriculomegaly. Skull: No acute fracture. Sinuses: Unremarkable as visualized. No acute sinusitis. Mastoid air cells: Unremarkable as visualized. No mastoid fluid. Vertebrae: Right C6-7 jumped facet with acute fractures in the right C7 superior facet. Left C6-7 perched facet. 7 mm subluxation of C6 on C7. Multilevel degenerative facet arthropathy on the left. Discs/spinal canal/neural foramina: Degenerative disc disease C5-6 and C6-7. No spinal canal stenosis. Soft tissues: Unremarkable. Pleural space: No apical pneumothorax. IMPRESSION: 1. Right C6-7 jumped facet with acute fractures in the right C7 superior facet. Left C6-7 perched facet. 2. 7 mm subluxation of C6 on C7. 3. Multilevel degenerative changes. 4. No acute intracranial findings. No hemorrhage. . ED course: EXAM: CT Chest, Abdomen and Pelvis Without Intravenous Contrast CLINICAL HISTORY: The patient is 64 years old and is Female; Fall. TECHNIQUE: Axial computed tomography images of the chest, abdomen and pelvis without intravenous contrast. Sagittal and coronal reformatted images were created and reviewed. This CT exam was performed using one or more of the following dose reduction techniques: automated exposure control, adjustment of the mA and/or kV according to patient size, and/or use of iterative reconstruction technique. COMPARISON: CT Chest abdomen pelvis 05/15/2024. FINDINGS: CHEST: Lungs: Dependent changes in the lungs. Pleural space: No pleural effusion or pneumothorax. Heart: Unremarkable. No cardiomegaly. No significant pericardial effusion. No significant coronary artery calcifications. ABDOMEN: Liver: Unremarkable. Gallbladder and bile ducts: Cholecystectomy with mild biliary dilatation. No choledocholithiasis visualized. Pancreas: Unremarkable. No ductal dilation. Spleen: Unremarkable. No splenomegaly. Adrenals: Unremarkable. No mass. Kidneys and ureters: Unremarkable. No obstructing stones. No hydronephrosis. Stomach and bowel: Previous bowel resection/anastomosis. No bowel dilatation or obstruction. No bowel wall thickening. No gastric wall thickening. PELVIS: Appendix: No findings to suggest acute appendicitis. Bladder: Unremarkable. No stones. Reproductive: Uterus is small or removed. No adnexal mass visualized. CHEST, ABDOMEN and PELVIS: Intraperitoneal space: Unremarkable. No significant fluid collection. No free air. Bones/joints: No acute sternal fracture. No sternoclavicular joint dislocation. Scoliosis. Multilevel degenerative disc disease in the lumbar spine degenerative disc disease T11-12. Right total hip arthroplasty hardware. No dislocation or acute fracture in the pelvis or proximal femora. Soft tissues: Unremarkable. Vasculature: Unremarkable. No aortic aneurysm. Lymph nodes: Unremarkable. No enlarged lymph nodes. IMPRESSION: 1. No acute injury identified in the chest, abdomen or pelvis. Study performed without IV contrast. 2. Additional non-emergent findings as above. Electronically signed by: Gissell Cotton MD 11/19/2024 05:58 AM . 06:19 Differential diagnosis: abrasion, closed head injury, contusion, fracture, laceration, sp4 multiple trauma, sprain, strain. Data reviewed: vital signs, nurses notes, EMS record, lab test result(s), radiologic studies, CT scan. Consideration of Admission/Observation Escalation of care including admission/observation considered. 06:33 Management of patient was discussed with the following: Brush Material Preparer: Dr. Rocha at [facility] . sp4 ED course: Patient has moderate unstable C6 and C7 subluxation. Will be airlifted to [place] for neurosurgery stabilization. 11/19 03:33 Order name: Basic Metabolic Panel sp4 11/19 03:33 Order name: CBC with Diff sp4 11/19 03:34 Order name: Troponin High Sensitivity sp4 11/19 03:34 Order name: BNP sp4 11/19 03:34 Order name: LFT's sp4 11/19 03:09 Order name: Head C Spine Mpr Wo Con EDMS 11/19 03:11 Order name: Chest Abd Pelvis Wo Con EDMS 11/19 03:23 Order name: Saline Lock; Complete Time: 03:26 sp4 11/19 03:33 Order name: Labs collected and sent; Complete Time: 03:44 sp4 11/19 03:34 Order name: Holman; Complete Time: 05:12 sp4 11/19 03:34 Order name: Misc. Order: Apply [place] collar; Complete Time: 03:43 sp4 11/19 04:17 Order name: NPO; Complete Time: 04:51 sp4 Administered Medications: 03:35 Drug: HYDROmorphone IVP 2 mg IVP once Route: IVP; Site: right hand; ay 04:45 Follow up: Response: No adverse reaction; Pain is unchanged, physician notified ay 03:35 Drug: Ondansetron IVP 4 mg IVP once; over 2 minutes Route: IVP; Site: right hand; ay 04:44 Follow up: Response: No adverse reaction ay 04:17 Drug: NS 0.9% IV 1000 ml IV at 125 ml/hr Per protocol; to be given as a bolus over 60 ay minutes Route: IV; Rate: 125 ml/hr; Site: left hand; 04:44 Drug: HYDROmorphone IVP 2 mg IVP once Route: IVP; Site: left hand; ay 06:02 Follow up: Response: No adverse reaction; Pain is decreased ay 06:16 Follow up: Response: No adverse reaction bm8 Disposition Summary: 11/19/24 06:36 Transfer Ordered Notes: Transfer Location: [facility] sp4 Reason: Higher level of care sp4 Condition: Stable sp4 Problem: new sp4 Symptoms: have improved sp4 Accepting Physician: Josefina ADAM (11/19/24 07:04) ay Diagnosis - Right C6-7 jumped facet, acute fractures in the right C7 superior facet. sp4 Subluxation C6 on C7, Acute left arm and left leg paresis. Discharge Instructions: - Discharge Summary Sheet ay Forms: - Medication Reconciliation Form sp4 - SBAR form ay Critical care time excluding procedures: 06:33 Critical care time: Bedside Care: 36 minutes, Consultation: 12 minutes, Family sp4 Intervention: 12 minutes. Total time: 60 minutes Signatures: Dispatcher [employer] EDTiburcio Martell MD MD sp4 Johnathan Chilel, RN RN bm8 Jesus Patel, RN RN ay Corrections: (The following items were deleted from the chart) 03:09 03:03 Head C Spine Cap Wo Con+CT.RAD.BRZ ordered. EDMS EDMS 03:34 03:34 Troponin High Sensitivity+C.LAB.BRZ ordered. EDMS EDMS 03:34 03:34 PROBNP+C.LAB.BRZ ordered. EDMS EDMS 03:34 03:34 HEPATIC FUNCTION+C.LAB.BRZ ordered. EDMS EDMS 07:04 06:36 Josefina ADAM sp4 ay
[2024-11-19 07:17] VITALS: TEMP 97.8
[2024-11-19 07:21] VITALS: BP 123/65; O2SAT 96
== END 2024-11-19 07:04 | disposition short-term general hospital (02) ==
LOC: ER 02:35
DX: S12.600A Unspecified displaced fracture of seventh cervical vertebra, initial encounter for closed fracture (principal); S13.171A Dislocation of C6/C7 cervical vertebrae, initial encounter; R20.2 Paresthesia of skin; W06.XXXA Fall from bed, initial encounter; I10 Essential (primary) hypertension; Z96.641 Presence of right artificial hip joint; Z96.652 Presence of left artificial knee joint
CPT/HCPCS: 85025; 80048; 36415; 80076; 84484; 83880; 70450; 71250; 72125; 74176; 51702; 99285; J1171 ×3; J2405; J7030

== ENCOUNTER 2024-11-30 14:03 | Inpatient (IN) | payer OTHER ==
--- OUTSIDE RECORDS SUMMARY | 2024-11-30 20:18 | XMS REPORT | Clinical Summary ---
Author Name Unknown Organization [facility] Address [address] [place] [address] Care Team Providers Care Emergency Room Tech Name Role Phone Madison Manning Unavailable Social History Tobacco Use Types Packs/Day Years Used Date Smoking Tobacco: Never Assessed Comments Unknown Sex and Gender Information Value Date Recorded Sex Assigned at Not on file Legal Sex Female 1:51 PM CDT Gender Identity Not on file Sexual Orientation Not on file Plan of Treatment Not on file Insurance Care Teams Emergency Room Tech Relationship Specialty Start Date End Date Madison Manning PCP - External Follow Up A 03/19/22
[2024-11-30] MEDS: methocarbamoL 500 MG TAB PO SCH (21:05)
[2024-11-30] MEDS: HYDROCODONE/APAP 5/325 MG TAB PO PRN (21:06)
[2024-11-30] MEDS: ACETAMINOPHEN 500 MG TAB PO SCH (21:13)
[2024-11-30] MEDS: DOCUSATE NA/SENNA CONC 1 TAB PO SCH (21:13)
[2024-11-30] MEDS: POLYETHYL GLY 3350 17 GM/DOSE PO SCH (21:13)
[2024-11-30] MEDS: GABAPENTIN 400 MG CAP PO ONE (21:13)
[2024-11-30 21:19] LABS: Specific Gravity 1.021 (1.005-1.030); Sqamous Epithelial None Seen /HPF (None Seen); Transitional Epithelial <5 /HPF (None Seen); Urine Bacteria <20 /HPF (<20); Urine Bilirubin NEGATIVE (Negative); Urine Blood 3+ (OVER) (Negative); Urine Clarity Extremely Turbid (Clear); Urine Color Light-Orange (Yellow); Urine Culture Reflex Order REFLEXED; Urine Glucose NEGATIVE (Negative); Urine Ketones NEGATIVE (Negative); Urine Micro Reflex YN NO BILL MICROSCOPIC; Urine Mucus Slight /HPF (None Seen); Urine Nitrite NEGATIVE (Negative); Urine Protein 1+ (Negative); Urine RBC >50 /HPF (None Seen); Urine Urobilinogen Normal (Normal); Urine WBC >50 /HPF (<5)
[2024-11-30] MEDS: HYDROMORPHONE ORAL 2 MG TAB PO PRN (23:06)
[2024-12-01] MEDS: METHADONE HCL 10 MG TAB PO PRN (00:20)
[2024-12-01 03:14] VITALS: BMI 22.5
[2024-12-01 05:55] LABS: Absolute Basophils 0.1 K/uL (0-0.5); Absolute Eosinophils 0.3 K/uL (0-0.5); Absolute Lymphocytes (CBC) 0.8 K/uL (0.7-4.9); Absolute Monocytes 0.7 K/uL (0.1-1.3); Basophils % 0.5 % (0-1.3); Eosinophils % 3.4 % (0-4.4); Hematocrit 24.3 % (36.0-45.0); Hemoglobin 8.4 g/dL (12.0-15.0); Lymphocytes % 7.9 % (15.3-44.8); MCH 29.7 pg (27.0-35.0); MCHC 34.3 g/dL (32.0-36.0); MCV 86.5 fL (80-100); MPV 7.4 fL (7.6-11.3); Monocytes % 7.1 % (3.3-12.3); Neutrophils % 81.1 % (41.7-73.7); Platelets 361 thou/uL (152-406); RBC Red Blood Cell Count 2.81 M/uL (3.86-4.86); Red Cell Distribution Width 12.9 % (12.1-15.2)
[2024-12-01 06:16] LABS: Albumin 2.7 g/dL (3.4-5.0); Anion Gap 6.1 mEq/L (5.0-15.0); Potassium 4.1 mEq/L (3.5-5.1); Prealbumin 23.6 mg/dL (20-40)
--- NOTE | 2024-12-01 07:35 | RAD REPORT ---
EXAMINATION: ONE VIEW CHEST XR CLINICAL INDICATION: cough TECHNIQUE: Frontal chest projection is submitted. Examination is limited by patient positioning and t echnique. COMPARISON: 05/15/2024 FINDINGS: Mild linear atelectasis is present in left lung base. Lungs otherwise grossly clear. The heart is upp er limit of normal in size. Postsurgical changes with skin sharifa noted in the cervical spine region.
--- NOTE | 2024-12-01 07:40 | RAD REPORT ---
EXAM: XR of the abdomen HISTORY: Abdominal pain constipation COMPARISON: None FINDINGS: XR of the abdomen shows a nonspecific, nonobstructive bowel gas pattern. Moderate stool not ed throughout the colon. No suspicious calcifications are seen. Cholecystectomy clips. Moderate S-shaped scoliosis. Right total hip arthroplasty. IMPRESSION: Moderate constipation.
[2024-12-01] MEDS: PANTOPRAZOLE 40MG TABLET PO SCH (07:59)
[2024-12-01] MEDS: LACTULOSE 20 GM/30 ML UCUP PO SCH (07:59)
[2024-12-01] MEDS: TAMSULOSIN 0.4 MG SR CAP PO SCH (07:59)
[2024-12-01] MEDS: DOCUSATE NA/SENNA CONC 1 TAB PO SCH (08:00)
[2024-12-01] MEDS: DULOXETINE 30 MG CAP PO SCH ×2 (08:00→20:45)
[2024-12-01] MEDS: GABAPENTIN 300 MG CAP PO SCH ×2 (09:08→15:54)
[2024-12-01] MEDS: ACETAMINOPHEN 500 MG TAB PO PRN (11:50)
[2024-12-01] MEDS: SODIUM CHLORIDE 1 GM TAB PO SCH (11:51)
[2024-12-01] MEDS: LOSARTAN POTASSIUM 50 MG TABLET PO SCH (11:51)
[2024-12-01] MEDS: methocarbamoL 500 MG TAB PO PRN (11:51)
[2024-12-01] MEDS: ONDANSETRON 4 MG (ODT) TAB PO PRN (12:25)
--- NOTE | 2024-12-01 14:18 | P.RH.PN ---
Estimated Length of Stay: 14 Expected Discharge Date: 12/15/24 Discharge Disposition Plan: Home Family Support: Yes Nursing Home Goal: Mobility, Transfers, Self Care Vital Signs: Last Vital Signs Temp 98.1 F 12/01/24 08:00 Pulse 86 12/01/24 08:00 Resp 16 12/01/24 11:51 BP 196/86 H 12/01/24 08:00 Pulse Ox 95 12/01/24 11:51 Laboratory: Laboratory Last Values WBC 9.90 thou/uL (4.3-10.9) 12/01/24 05:43 RBC 2.81 M/uL (3.86-4.86) L 12/01/24 05:43 Hgb 8.4 g/dL (12.0-15.0) L 12/01/24 05:43 Hct 24.3 % (36.0-45.0) L 12/01/24 05:43 MCV 86.5 fL (80-100) 12/01/24 05:43 MCH 29.7 pg (27.0-35.0) 12/01/24 05:43 MCHC 34.3 g/dL (32.0-36.0) 12/01/24 05:43 RDW 12.9 % (12.1-15.2) 12/01/24 05:43 Plt Count 361 thou/uL (152-406) 12/01/24 05:43 MPV 7.4 fL (7.6-11.3) L 12/01/24 05:43 Neutrophils % 81.1 % (41.7-73.7) H 12/01/24 05:43 Lymphocytes % 7.9 % (15.3-44.8) L 12/01/24 05:43 Monocytes % 7.1 % (3.3-12.3) 12/01/24 05:43 Eosinophils % 3.4 % (0-4.4) 12/01/24 05:43 Basophils % 0.5 % (0-1.3) 12/01/24 05:43 Absolute Neutrophils 8.0 K/uL (1.8-8.0) 12/01/24 05:43 Absolute Lymphocytes 0.8 K/uL (0.7-4.9) 12/01/24 05:43 Absolute Monocytes 0.7 K/uL (0.1-1.3) 12/01/24 05:43 Absolute Eosinophils 0.3 K/uL (0-0.5) 12/01/24 05:43 Absolute Basophils 0.1 K/uL (0-0.5) 12/01/24 05:43 Sodium 127 mEq/L (136-145) L 12/01/24 05:43 Potassium 4.1 mEq/L (3.5-5.1) 12/01/24 05:43 Chloride 91 mEq/L (98-107) L 12/01/24 05:43 Carbon Dioxide 34 mEq/L (21-32) H 12/01/24 05:43 Anion Gap 6.1 mEq/L (5.0-15.0) 12/01/24 05:43 BUN 18 mg/dL (7-18) 12/01/24 05:43 Creatinine 0.67 mg/dL (0.55-1.02) 12/01/24 05:43 Est GFR (CKD-EPI) 96 ml/min (=/>90) 12/01/24 05:43 Glucose 110 mg/dL (74-106) H 12/01/24 05:43 Calcium 8.7 mg/dL (8.5-10.1) 12/01/24 05:43 Magnesium 2.0 mg/dL (1.6-2.4) 12/01/24 05:43 Albumin 2.7 g/dL (3.4-5.0) L 12/01/24 05:43 Prealbumin 23.6 mg/dL (20-40) 12/01/24 05:43 Urine Color Light-orange (Yellow) 11/30/24 20:50 Urine Clarity Extremely turbid (Clear) H 11/30/24 20:50 Urine pH 8.0 (5.0-7.0) H 11/30/24 20:50 Ur Specific [place] 1.021 (1.005-1.030) 11/30/24 20:50 Glucose (UA)(Auto) Negative (Negative) 11/30/24 20:50 Urine Ketones Negative (Negative) 11/30/24 20:50 Urine Blood 3+ (over) (Negative) H 11/30/24 20:50 Urine Nitrite Negative (Negative) 11/30/24 20:50 Urine Bilirubin Negative (Negative) 11/30/24 20:50 Urine Urobilinogen Normal (Normal) 11/30/24 20:50 Ur Leukocyte Esterase 500 Leandro/uL (Negative) H 11/30/24 20:50 Urine RBC >50 /HPF (None Seen) H 11/30/24 20:50 Urine WBC >50 /HPF (<5) H 11/30/24 20:50 Ur Squamous Epith Cells None seen /HPF (None Seen) 11/30/24 20:50 Ur Transition Epith Cell <5 /HPF (None Seen) 11/30/24 20:50 Urine Bacteria <20 /HPF (<20) 11/30/24 20:50 Urine Mucus Slight /HPF (None Seen) 11/30/24 20:50 Urine Culture Reflexed Reflexed 11/30/24 20:50 Urine Total Protein 1+ (Negative) H 11/30/24 20:50 Weight: 180 lb Closed Surgical Incision Present: Yes Negative Pressure Wound Therapy Present: No Physician Update: Labs reviewed and are stable. SBA bed mobility, min assist pivot transfers, RW 50', WC 150'. Independent eating, supervision toileting, min assist upper body dressing, max for lower body dressing. Summary: Patient's care plan and supervisor long goods goals have been reviewed and revised as necessary. Please see the Rehabilitation Signature page for all necessary signatures.
--- NOTE | 2024-12-01 16:01 | RAD REPORT ---
EXAM: AP view(s) of the abdomen Abdomen 1 View (KUB) HISTORY: constipation COMPARISON: Same-day FINDINGS: Nonobstructive bowel gas pattern.. Moderate formed stool burden, similar to prior. Surgical clips in right upper quadrant.. No acute osseous abnormality. Scoliosis Other: n/a IMPRESSION: Nonobstructive bowel gas pattern. Mild to moderate formed stool burden with some decrease in stool burden at the ascending colon and splenic flexure compared with prior
--- NOTE | 2024-12-01 22:35 | HP ---
Date of Admission: 11/30/2024 Time Of Service: 2 p.m. Chief Complaint: "I fell and broke my neck." History Of Present Illness: Ms. Lemons is a 64-year-old right-handed patient, who has had hip and kn ee replacements along with multilevel DJD, who was on home Dilaudid and she was getting out of bed wh en she fell striking her neck on the bedside table. She had acute left-sided weakness, numbness and tingling and pain and was brought to the emergency department. Imaging identified an unstable C6-7 f racture with dislocation and perched jumped facets. She had immediate surgery, had closed reduction of the dislocation at [facility]. Imaging did identify reverse listhesis, epidural hemorrhage resulting in moderate to severe stenosis at the C6-7 level. The cord did have edema and there was moderate canal stenosis at C5-6. Again, she did undergo a C6-7 anterior diskectomy and fusion and C5-T1 laminectom ies. She had a C4-T2 PSIF. Course complicated by severe pain requiring IV medications and the patie nt already had a high tolerance for opioids. She was eventually weaned off IV medications and was pl aced on hydromorphone 6 mg every 8 hours as needed for severe pain. She did have additional medicati ons including methadone and methocarbamol along with Tylenol, gabapentin, and Naloxegol 25 mg daily f or the opioid induced constipation. She did have urinary retention and had episodes of diarrhea. Sh tosha received duloxetine for depression and neuropathic pain and pain was eventually under fair control. She did have a [place] J collar following surgery and was instructed not to lift more than 10 pounds in terms of her restriction. With therapy, she requires minimal assistance for feeding with open con tainers and minimal assistance for grooming, upper body dressing, maximal assistance for lower body d ressing, minimum assistance for toileting, supervision for [id number] and ambulating over 180 feet with a rolling walker. In addition, she had poor balance with the right and left knee buckling when she tries to transfer. She was cleared by her Pain Management and hospitalists and surgeons for ther apy and is now admitted to the inpatient rehabilitation unit for physical and occupational therapy to help her return to her prior level of functioning and reduce risk for rehospitalization. Admission to the inpatient rehabilitation is necessary as if she is going home, she will likely be worse and if she goes to care home, the intense level of therapy required will not be delivered and she of course needs daily physician evaluation and management. Past Medical History: As noted, hip and knee replacement, multilevel degenerative disk disease, on D ilaudid. She has had abdominal surgeries previously as well. X-ray/imaging: CT trauma series of the spine, cervical, lumbar, thoracic showed normal cervical lord osis present, grade 2 anterolisthesis of C6 on C7. MRI of the spine on 11/1905 grade 2 anterolisthesis of C6 and C7 with large facet on the left and jumped facet on the right. Re-demonstrated fracture o f C7 at the base of the anterior superior. There was a margin of the vertebrae. There was an osteop hyte with marrow edema seen. She had listhesis and epidural hemorrhage resulting in moderate to yadira re stenosis at C6-7 where she has a T2 STIR hyperintensity likely reflecting edema. She has moderate spinal canal stenosis present at C5-6. There is disruption of the posterior longitudinal ligament a t C6-C7, suspected partial tears of the anterior longitudinal ligament and ligamentum flavum. There was scattered moderate to high-grade neural foraminal narrowing noted. Cervical spine CT on 11/19, C 6-7 ACDF and C4-T1 posterior spinal fusion. There is C4-T1 hemilaminectomy. Previously noted raffy listhesis of C6 and C7 had been reduced with 4 mm residual anterolisthesis seen, jumped facet on the left at this level had been reduced, although there remains anterior facet subluxation on the right w ith near perched configuration. Small mildly displaced fracture of the C7 facet at the superior maday cular pillar. There is a small moderate sized fluid collection noted within the laminectomy bed at C 6-7 which may reflect seroma or pseudomeningocele. Allergies: AMOXICILLIN, SULFAMETHOXAZOLE, TRIMETHOPRIM, MORPHINE CAUSES VOMITING. Current Medications: Tylenol 1000 mg 3 times daily, Dulcolax 10 mg per rectum as needed, duloxetine 60 mg twice daily, gabapentin 100 mg 3 times daily, Dilaudid 6 mg every 8 hours, lactulose 20 mg jeffrey y, Cozaar 25 mg twice daily, methadone 7.5 mg twice daily, Robaxin 500 mg 4 times daily as needed, Zo ashok 4 mg every 4 hours as needed, Protonix 40 mg daily, Senokot-S 1 twice daily, sodium chloride tab lets 2 g twice daily, Flomax 0.4 mg daily. Laboratory Studies: White blood cell count 9.9, hemoglobin 8.4, platelets 361. Sodium 127, potassiu m 4.1, chloride 91, carbon dioxide 34, BUN 18, creatinine 0.67, glucose 110, calcium 8.7, magnesium 2 .0, albumin 2.7, prealbumin 23.6. Urinalysis shows extreme turbidity, pH 8, 3+ blood, 500 esterases, greater than 50 red blood cells, greater than 50 white blood cells, 1+ protein, otherwise unremarkab le. Cultures are pending. She currently has greater than 100,000 colony-forming units on the urinal ysis with 4+ gram-negative rods. Family History: Noncontributory. Social History: The patient lives alone, was fully independent and ambulated without assistive devic e. No alcohol, tobacco, or IV drug use. Review of Systems: She does report mild myalgias, arthralgias in arms, legs, mild tingling in the fingers and some const ipation alternating with diarrhea, which currently is constipation. There is mild neck pain, where s he has a [place] J collar in place. No difficulty with sleep. No active psychiatric issues such as de pression, anxiety, that all are well controlled. No other positives on the systems review. Current Level Of Functioning: Currently, she is at a moderate assistance level for eating, supervisi on for grooming, maximal assistance for bathing, moderate assistance for upper body dressing, maximum assistance for lower body dressing and toileting, moderate assistance for transfer from bed, chair, and wheelchair, toilet transfer moderate assistance, ambulation moderate assistance covering 35 feet, not yet able to go up and down steps. Physical Examination: Vital Signs: Blood pressure up to 196/86, pulse 56, respiratory rate 16, temperature 98.1, oxygen sa turation 95%. General: Ms. Lemons is lying comfortably in bed with [place] J collar in place. She has good hemostas is at neck surgical site. Oropharynx pink, moist. Neck: Supple. Chest: Clear. Heart: Regular. Extremities: Show no significant clubbing, cyanosis, or edema. She does have some left upper and lo wer extremity weakness compared to the right side around 4/5 compared to the right 5/5 upper and lowe r extremity. Otherwise, intact coordination and slightly depressed reflexes. For gait, she will be ambulated with the therapist. Assessment: Ms. 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 Her etiologic diagnosis is 04.230, other nontr aumatic spinal cord dysfunction. Etiologic diagnosis, severe C6-C7 cervical stenosis with myelopathy and radiculopathy. Her comorbidities are left-sided upper and lower extremity weakness, numbness, t ingling, urinary retention, hyponatremia, GE reflux, chronic narcotic use with tolerance, anxiety, de pression, neuropathic pain, and again constipation alternating with diarrhea. Plan: 1.She will have physical and occupational therapy 3 hours a day, 5 of 7 days. 2.We will address her stool issue with lactulose as needed. Also Imodium if need be, Flomax for uri nary retention, hyponatremia addressed with sodium chloride 2 g twice daily. She has Protonix for GE reflux, Zofran for nausea, Robaxin for muscle spasms. She has a methadone dosage of 7.5 mg twice da yovany for more chronic pain. She does have the Dilaudid 6 mg every 8 hours for pain rated 8 to 10. Sh e has gabapentin 900 mg twice daily and duloxetine 60 mg twice daily for neuropathic pain and to redu ce the pain related to her injury. She does have Tylenol as well on board. Comorbidities Impacting Rehabilitation: She is exposed to narcotics for an extended period of time a nd has developed significant tolerance. Attempts will be made to put back on the use of narcotic med ications by using neuromodulators, judicious use of muscle relaxants, and magnesium as well as antide pressant. She is at risk of aspiration pneumonia and upright while eating. Aspiration precautions a t all times and Speech will be evaluating the patient. High fall risk which can cause severe injury to cervical region. She will have a gait belt and transfer with all times with either 1 or 2 persons depending how she is doing. When ambulating, will have the gait belt on. She will have wheelchair in toe and she uses a walker hand. Rehab Specific Plan: Ms. Lemons will have physical and occupational therapy 3 hours a day, 5 of 7 da ys to improve her ability to transfer from a bed to a chair to a wheelchair to a walker, on and off t he toilet, in and out of shower. Therapy will help with upper and lower body dressing, donning and d offing footwear. Also help with performing activities of daily living, help her to make safe positio ns as she transfers and mobilizes. Ms. Lemons has a good understanding of the process of admission to the inpatient rehabilitation [facility] and how she will benefit from physical and occupational therapy. She will have 24 hours a day, 7 days a week skilled rehabilitation and nursing, daily physician evaluation and management, and [facility] l service evaluation and management for discharge planning, home equipment, and continuing therapy wh en she is discharged. Barriers To Discharge: Currently, she does have a [place] J collar in place and high fall risk with le ft-sided weakness. She may require extended stay at care home if she is not able to manage wel l at home and therapy. Length Of Stay: Around 14 days. Disposition: Home with Home Health and family's care. Prognosis: Good. Code Status: Full code. Rehab Specific Goals: 1.Become independent with upper and lower body dressing, donning and doffing footwear. 2.Independently mobilize a wheelchair 250 feet. 3.Independently ambulate with a walker 250 feet. 4.Independently go up and down 10 steps. 5.Independently perform all activities of daily living. 6.Independently perform all cognitive functioning. The above goals were reviewed with Ms. Lemons and she is in agreement. By signing this document, I acknowledge I personally performed a full physical examination on Ms. Nicholas crawford no later than 24 hours after her admission to the inpatient rehabilitation facility and determine d that she is able to tolerate the above course of treatment at an intensive level for a reasonable p eriod of time. A detailed individualized plan of care for her will be completed by hospital day 4 ba ayo on the preadmission screen, history and physical, and therapy evaluations. KAUSHIK Voice ID: [id number]
[2024-12-02] MEDS: BISACODYL 10 MG RECTAL SUPP PR PRN (04:41)
[2024-12-02 06:32] LABS: Absolute Eosinophils 0.4 K/uL (0-0.5); Absolute Lymphocytes (CBC) 1.1 K/uL (0.7-4.9); Absolute Neutrophil 13.8 K/uL (1.8-8.0); Basophils % 0.2 % (0-1.3); Eosinophils % 2.3 % (0-4.4); Hematocrit 26.6 % (36.0-45.0); Hemoglobin 9.1 g/dL (12.0-15.0); Lymphocytes % 6.5 % (15.3-44.8); MCH 29.8 pg (27.0-35.0); MCHC 34.1 g/dL (32.0-36.0); MCV 87.2 fL (80-100); MPV 7.5 fL (7.6-11.3); Monocytes % 6.3 % (3.3-12.3); Neutrophils % 84.7 % (41.7-73.7); Platelets 411 thou/uL (152-406); RBC Red Blood Cell Count 3.05 M/uL (3.86-4.86); Red Cell Distribution Width 13.3 % (12.1-15.2)
[2024-12-02 06:41] LABS: Anion Gap 8.3 mEq/L (5.0-15.0); Potassium 4.3 mEq/L (3.5-5.1)
[2024-12-02] MEDS: PANTOPRAZOLE 40MG TABLET PO SCH (07:32)
[2024-12-02] MEDS: FERROUS SULFATE 325 MG TAB PO SCH (08:52)
[2024-12-02] MEDS: CIPROFLOXACIN HCL 500 MG TAB PO SCH (19:56)
[2024-12-04] MEDS: HYDROMORPHONE ORAL 2 MG TAB PO PRN (12:14)
[2024-12-04] MEDS: DOCUSATE NA/SENNA CONC 1 TAB PO SCH (19:13)
[2024-12-04] MEDS: APIXABAN 2.5 MG TABLET PO SCH (19:15)
--- NOTE | 2024-12-04 21:44 | PN ---
Date of Progress Note: 12/04/2024 Time Of Service: 1:35 p.m. Subjective: Ms. Lemons is lying in bed. She has a hard [place] J collar in place. She denies any sig nificant neck pain, any myalgias, although some difficulty relaxing and some mild muscle spasms in th e lower extremities, but really no new complaints so far. Happy with their level of therapy and leve l of progress. She did have some stools today, but said that they were not adequate and so Senokot n ow will be scheduled. Furthermore, she is now put on DVT prophylaxis. It is noted that she has been on multiple heavy doses of narcotics including Dilaudid, which is 6 mg every 8 hours is now cut down to 3 mg every 8 hours and she will have neuropathic pain medications on board decreasing the use of narcotics. Review of Systems: Again, mild difficulty with constipation. No significant fevers, chills. No nausea, vomiting. No r charles. No psychiatric issues. Physical Examination: Vital Signs: Blood pressure 157/84, pulse 79, respiratory rate 17, temperature 97.6, oxygen saturat ion 96%. Weight 182 pounds, height 6 feet 3 inches, BMI 22. General: Ms. Lemons is resting in bed comfortably. Does have a [place] J collar in place. HEENT: She does appear normocephalic, atraumatic. Sclerae anicteric. Oropharynx moist. Neck: Supple. Chest: Clear. Extremities: No significant edema or cyanosis. Laboratory Studies: 2 days ago, white blood cell was elevated to 16.3 from 9.9. The urinalysis, whi ch appeared to be the source of that was positive with esterase 500, red blood cells greater than 50, white blood cells greater than 50, blood 3+, extreme turbidity in terms of urine clarity and her uri ne cultures did grow Klebsiella pneumoniae. It was sensitive to multiple antibiotics and she is curr ently on the ciprofloxacin 500 mg twice daily starting from 12/02/2024 to 12/07/2024. X-ray/imaging: She has KUB done on the . This study showed nonobstructive bowel gas pattern, mi [id number] formed stool. Some decreased stool burden in the ascending colon and splenic flexure compared to a prior study, which was done earlier after she has had fair bowel movement. Medications: Eliquis 2.5 mg twice daily, Dulcolax 10 mg per rectum for constipation, Tylenol 1000 mg 3 times daily as needed, Cipro 500 mg twice daily, Cymbalta 60 mg twice daily for neuropathic pain a nd mood stabilization, ferrous sulfate 325 mg daily, gabapentin 900 mg 3 times daily. She does have the Dilaudid now cut down to 2 mg every 8 hours, down from 6. She has lactulose 20 mg daily. She oseguera s Cozaar 25 mg twice daily. She has methadone on board 7.5 mg every 12 hours as needed. She has Don axin 500 mg every 6 hours as needed, Zofran 4 mg every 4 hours as needed, Protonix 40 mg daily, Senok ot S 2 scheduled now twice daily, sodium chloride 2 g twice daily for hyponatremia, and Flomax 0.4 mg daily for urinary retention. Progress Made With Physical, Occupational, And Speech Therapy: With physical therapy today, she had pain reported up to 8/10 radiating down both arms and her right hip was noted. Pain medications were adjusted. She did ambulate with a walker 75 feet with contact guard assistance. She did not have b uckling and she mobilized. She propelled a wheelchair 100 feet with supervision, did feel weak and t ired as she was doing her therapy. In addition, she moved 100 feet with a rolling walker with contac t guard assistance. Worked on stairs ascending and descending 12 small steps. Did fatigue after the last set of steps. Assessment And Plan: Ms. Lemons is a 64-year-old patient in the rehabilitation unit with traumatic s chris cord injury. She does have severe stenosis at C6-C7, status post decompression. That has left her with myelopathy, and radiculopathy. She has left upper and lower extremity weakness and numbnes s and tingling also in the upper extremities and lower extremities. She has some urinary retention, hyponatremia, GE reflux, and heavy narcotic use. It has been chronic and attempts are now being made to decrease the need for narcotics. Also, anxiety and depression. Plan: She will continue with physical and occupational therapy 3 hours a day, 5 of 7 days. Note, me dications have been adjusted to help with constipation. She also has a list of narcotic medications with attempts being made to cut those back and neuropathic medications being used. That are the neur omodulators actually such as the gabapentin and duloxetine and she has muscle relaxants on board as w raquel and is being treated with Eliquis for DVT prophylaxis. She is on Cipro for a urinary tract infec tion. We will go from 12/02 to 12/07 Cipro 500 mg twice daily. Those conditions are not impacting h er rehabilitation. More issues with pain and fatigue and she is working hard on that. JOSH/DELANO Voice ID: [id number] Report ID: [id number]
[2024-12-05] MEDS: HYDROMORPHONE ORAL 2 MG TAB PO PRN (00:07)
[2024-12-05 05:12] LABS: Absolute Basophils 0.1 K/uL (0-0.5); Absolute Eosinophils 0.3 K/uL (0-0.5); Absolute Lymphocytes (CBC) 0.8 K/uL (0.7-4.9); Absolute Monocytes 0.7 K/uL (0.1-1.3); Absolute Neutrophil 4.4 K/uL (1.8-8.0); Basophils % 1.2 % (0-1.3); Eosinophils % 5.5 % (0-4.4); Hematocrit 23.1 % (36.0-45.0); Hemoglobin 8.2 g/dL (12.0-15.0); Lymphocytes % 12.2 % (15.3-44.8); MCH 30.2 pg (27.0-35.0); MCHC 35.5 g/dL (32.0-36.0); MCV 85.1 fL (80-100); MPV 7.2 fL (7.6-11.3); Neutrophils % 70.1 % (41.7-73.7); Platelets 349 thou/uL (152-406); RBC Red Blood Cell Count 2.72 M/uL (3.86-4.86); Red Cell Distribution Width 13.2 % (12.1-15.2)
[2024-12-05 05:20] LABS: Anion Gap 9.1 mEq/L (5.0-15.0); Potassium 4.1 mEq/L (3.5-5.1)
[2024-12-05] MEDS: methocarbamoL 500 MG TAB PO PRN (18:02)
[2024-12-05] MEDS: GABAPENTIN 300 MG CAP PO SCH (20:35)
[2024-12-06] MEDS: ACETAMINOPHEN 500 MG TAB PO PRN (08:50)
[2024-12-06] MEDS: LIDOCAINE 4% PATCH TOP SCH (15:10)
--- NOTE | 2024-12-06 17:43 | PN ---
Date of Progress Note: 12/06/2024 Time Of Service: 1:40 p.m. Subjective: Ms. Lemons is lying in bed. She did report that the pain in the back of the neck is sli ghtly more. Some muscle spasms are noted especially when sitting and she has little bit of tingling as well. Otherwise, she says she is managing, seems somewhat depressed in terms of mood. Objective: Again, mild pain and spasms in the neck. She is otherwise normocephalic. She has a hard [place] J collar in place. She has sharifa in the midline in the back that are intact with good hemos tasis. She has no other findings except there is diffuse weakness in upper and lower extremity from the severe cord compression, where she has decompression of C6-C7 following the surgery. Physical Examination: Vital Signs: Blood pressure 163/83, pulse 88, respiratory rate 16, temperature 97, oxygen saturation 97%. General: Ms. Lemons again resting comfortably. She is in no acute distress. HEENT: Normocephalic, atraumatic. [place] J collar is in place. Good hemostasis at the surgical site in the back of her neck and going into the upper shoulder. Diffuse weakness in upper and lower extr emities without focal findings. Laboratory Studies: Sodium 130, potassium 4.1, chloride 94, BUN 24, creatinine 0.64, calcium 8.8. H er white blood cell count is 6.2, hemoglobin is slightly decreased to 8.2 from 9.1, platelet count 34 9. X-ray/imaging: No new x-rays or imaging. Medications: Medications have been reviewed and she did have gabapentin 600 mg twice daily. She has Dilaudid on board for pain. She has methadone as well. She has Zofran, Protonix, sodium chloride r eplacement, and Flomax on board as well. Progress Made With Physical And Occupational Therapy: With physical therapy today, she ambulated 200 feet and 120 feet with contact guard assistance using a rolling walker. She is able to go up and do wn 5 steps 3 times with contact guard assistance. She did complete [id number] transfers with cont act guard assistance, [id number] transfers with contact guard assistance as well. With occupatio nal therapy, completed upper body dressing independently, lower body dressing with verbal cues for th reading her lower extremities through the legs of her clothes. Assessment And Plan: Ms. Lemons is a 64-year-old patient in rehabilitation unit with severe C6-C7 ce rvical stenosis, status post decompression. She is making good progress overall with her physical an d occupational therapy, recovering well, although slowly. She does have some pain in back of her nec k and somewhat depressed about not recovering faster. She has comorbidities of urinary retention, hy ponatremia addressed with replacement of sodium and she has Flomax on board, Senokot for constipation , Protonix for GE reflux, Zofran for nausea, Ensure Enlive for malnutrition, Robaxin for muscle spasm s. She has methadone on board along with Dilaudid and duloxetine. She has Eliquis for DVT prophylax is, Cipro for her urinary tract infection which is being managed, 500 mg twice daily. She will of co david continue with therapy 3 hours a day, 5 of 7 days. Comorbidities Impacting Rehabilitation: Her mood is slightly down based on her recovery; however, sh tosha is making progress and she will have the sharifa removed after her discharge and she follows up wit h the surgeons. Otherwise, she is feeling mildly depressed about her circumstances and situations. Of course, medications have been used to help with her depression. JOSH/MODL Voice ID: [id number] Report ID: [id number]
[2024-12-06] MEDS: ENSURE ENLIVE 237 ML CAN PO SCH (20:00)
[2024-12-07 06:23] LABS: Absolute Basophils 0.1 K/uL (0-0.5); Absolute Eosinophils 0.4 K/uL (0-0.5); Absolute Lymphocytes (CBC) 0.8 K/uL (0.7-4.9); Absolute Monocytes 0.6 K/uL (0.1-1.3); Absolute Neutrophil 3.3 K/uL (1.8-8.0); Basophils % 1.2 % (0-1.3); Eosinophils % 7.3 % (0-4.4); Hematocrit 24.7 % (36.0-45.0); Hemoglobin 8.6 g/dL (12.0-15.0); Lymphocytes % 16.3 % (15.3-44.8); MCH 29.7 pg (27.0-35.0); MCV 84.8 fL (80-100); MPV 7.3 fL (7.6-11.3); Monocytes % 12.5 % (3.3-12.3); Neutrophils % 62.7 % (41.7-73.7); Platelets 343 thou/uL (152-406); RBC Red Blood Cell Count 2.91 M/uL (3.86-4.86)
[2024-12-07 06:44] LABS: Albumin 2.8 g/dL (3.4-5.0); Anion Gap 7.7 mEq/L (5.0-15.0); Magnesium 2.1 mg/dL (1.6-2.4); Potassium 3.7 mEq/L (3.5-5.1); Prealbumin 18.9 mg/dL (20-40)
[2024-12-07] MEDS: METHADONE HCL 10 MG TAB PO PRN (14:53)
[2024-12-07] MEDS: HYDROMORPHONE ORAL 2 MG TAB PO SCH (17:14)
--- NOTE | 2024-12-08 00:05 | PN ---
Date of Progress Note: 12/07/2024 Time Of Service: 1:40 p.m. Subjective: Ms. Lemons is doing well, mobilizing into the room. I spoke with the patient's who had some questions about whether or not she is able to go home and he was satisfied at the end an d he understood little bit more about the difference between acute inpatient rehabilitation and skill ed nursing and the patient herself is ready to go home and despite that the patient's would l ashley her to stay in the hospital longer. Otherwise, she is doing fairly well improved in terms of elaine n or spasms in the back of her neck and today, the surgeons will give permission to remove sharifa fr om the neck. Review of Systems: Some mild myalgias, arthralgias in the neck which have improved. She does have a Taylor J collar in p lace and notes no other complaints such as fevers, chills, nausea, vomiting. No new issues in terms of bowel or bladder functioning. Physical Examination: Vital Signs: Blood pressure 165/90, pulse is 89, respiratory rate 16, temperature 97.1, oxygen satur ation 95%. General: Ms. Lemons is sitting in a chair, just finished therapy in the gym and back to the room. S he does have Taylor J collar in place. HEENT: She is otherwise normocephalic, atraumatic. Sclerae anicteric. Oropharynx is pink and moist . Neck: Supple. Chest: Clear. Heart: Regular. Extremities: No significant edema, cyanosis, or clubbing noted. Does have some decreased range of m otion in the arms due to the Taylor J collar. Some mild diffuse weakness in the lower extremities wit h increased tone noted. Laboratory Studies: White blood cell count 5.2, hemoglobin 8.6, platelets 343. Sodium 133, potassiu m 3.7, chloride 98, carbon dioxide 31, BUN 17, creatinine 0.67, glucose 102, calcium 9.0. Magnesium 2.1. Albumin 2.8, prealbumin 18.9. X-ray/imaging: No new x-rays or imaging. Medications: Medications have been reviewed. She does have an increase in frequency of the hydromor phone to 2 mg every 6 hours from every 8 hours, gabapentin 600 mg twice daily, duloxetine 60 mg twice daily with neuropathic pain. She does have Cipro on board for urinary tract infection 500 mg twice daily started from to end on the . She has Eliquis for DVT prophylaxis. She has Dulcolax a s needed for stool softening. In addition, Flomax for urinary retention, Zofran for nausea. She has muscle relaxant on board in addition his methadone as well. Progress Made With Physical And Occupational Therapy: With her therapy today, she did independently supine to sit transfers. She did transfer from bed to chair and back independently with a rolling wa lker. Wheelchair transfer also independent. Completed bathing, upper and lower body dressing, and f ootwear independently using assistive device. Toilet hygiene done independently. She did hand stren gthening exercises with hand gripper. She did meet her goals and was able to safely perform activiti es of daily living and transfers independently. Plan is to discharge home with ; however, he is still worried that she is unable to come home and wants her to go to a shelter facility. The patient herself is again doing well and potentially will be ready for home. Assessment: Ms. Lemons is a 64-year-old patient in the rehabilitation unit with severe C6-C7 cervica l spinal stenosis, status post decompression. She does have decreased mobility, decreased physical f unctioning, significant pain requiring multimodality medications including narcotics, muscle relaxant s, neuromodulators. She has Eliquis for DVT prophylaxis Cymbalta again for the pain management, ferr ous sulfate for low hemoglobin. She has lactulose to address the stool issues. The Cozaar for blood pressure control, Zofran for nausea, Protonix for GE reflux, sodium chloride for hyponatremia. Plan: She will continue with physical and occupational therapy 3 hours a day, 5 of 7 days. She has a list of comorbid condition medications that will be continued and in terms of her factors affecting her rehabilitation, the patient herself was very worried about an extended stay and the patient's hu sband is worried about her coming home too soon. She is happy to be home and continue therapy; [facility], a list of shelter facilities was given to the patient's and they were reviewing that and the patient does have 2 more days in therapy prior to possible discharge home. JOSH/DELANO Voice ID: [id number] Report ID: [id number]
--- NOTE | 2024-12-08 14:57 | P.RH.PN ---
Estimated Length of Stay: 11 Expected Discharge Date: 12/10/24 Discharge Disposition Plan: Home Family Support: Yes Correction Goal: Mobility, Transfers, Self Care Vital Signs: Last Vital Signs Temp 97.5 F 12/08/24 08:00 Pulse 93 H 12/08/24 08:00 Resp 16 12/08/24 12:07 BP 153/85 H 12/08/24 08:00 Pulse Ox 94 12/08/24 12:07 Laboratory: Laboratory Last Values WBC 5.20 thou/uL (4.3-10.9) 12/07/24 05:30 RBC 2.91 M/uL (3.86-4.86) L 12/07/24 05:30 Hgb 8.6 g/dL (12.0-15.0) L 12/07/24 05:30 Hct 24.7 % (36.0-45.0) L 12/07/24 05:30 MCV 84.8 fL (80-100) 12/07/24 05:30 MCH 29.7 pg (27.0-35.0) 12/07/24 05:30 MCHC 35.0 g/dL (32.0-36.0) 12/07/24 05:30 RDW 13.0 % (12.1-15.2) 12/07/24 05:30 Plt Count 343 thou/uL (152-406) 12/07/24 05:30 MPV 7.3 fL (7.6-11.3) L 12/07/24 05:30 Neutrophils % 62.7 % (41.7-73.7) 12/07/24 05:30 Lymphocytes % 16.3 % (15.3-44.8) 12/07/24 05:30 Monocytes % 12.5 % (3.3-12.3) H 12/07/24 05:30 Eosinophils % 7.3 % (0-4.4) H 12/07/24 05:30 Basophils % 1.2 % (0-1.3) 12/07/24 05:30 Absolute Neutrophils 3.3 K/uL (1.8-8.0) 12/07/24 05:30 Absolute Lymphocytes 0.8 K/uL (0.7-4.9) 12/07/24 05:30 Absolute Monocytes 0.6 K/uL (0.1-1.3) 12/07/24 05:30 Absolute Eosinophils 0.4 K/uL (0-0.5) 12/07/24 05:30 Absolute Basophils 0.1 K/uL (0-0.5) 12/07/24 05:30 Sodium 133 mEq/L (136-145) L 12/07/24 05:30 Potassium 3.7 mEq/L (3.5-5.1) 12/07/24 05:30 Chloride 98 mEq/L (98-107) 12/07/24 05:30 Carbon Dioxide 31 mEq/L (21-32) 12/07/24 05:30 Anion Gap 7.7 mEq/L (5.0-15.0) 12/07/24 05:30 BUN 17 mg/dL (7-18) 12/07/24 05:30 Creatinine 0.67 mg/dL (0.55-1.02) 12/07/24 05:30 Est GFR (CKD-EPI) 96 ml/min (=/>90) 12/07/24 05:30 Glucose 102 mg/dL (74-106) 12/07/24 05:30 Calcium 9.0 mg/dL (8.5-10.1) 12/07/24 05:30 Magnesium 2.1 mg/dL (1.6-2.4) 12/07/24 05:30 Albumin 2.8 g/dL (3.4-5.0) L 12/07/24 05:30 Prealbumin 18.9 mg/dL (20-40) L 12/07/24 05:30 Urine Color Light-orange (Yellow) 11/30/24 20:50 Urine Clarity Extremely turbid (Clear) H 11/30/24 20:50 Urine pH 8.0 (5.0-7.0) H 11/30/24 20:50 Ur Specific [place] 1.021 (1.005-1.030) 11/30/24 20:50 Glucose (UA)(Auto) Negative (Negative) 11/30/24 20:50 Urine Ketones Negative (Negative) 11/30/24 20:50 Urine Blood 3+ (over) (Negative) H 11/30/24 20:50 Urine Nitrite Negative (Negative) 11/30/24 20:50 Urine Bilirubin Negative (Negative) 11/30/24 20:50 Urine Urobilinogen Normal (Normal) 11/30/24 20:50 Ur Leukocyte Esterase 500 Leandro/uL (Negative) H 11/30/24 20:50 Urine RBC >50 /HPF (None Seen) H 11/30/24 20:50 Urine WBC >50 /HPF (<5) H 11/30/24 20:50 Ur Squamous Epith Cells None seen /HPF (None Seen) 11/30/24 20:50 Ur Transition Epith Cell <5 /HPF (None Seen) 11/30/24 20:50 Urine Bacteria <20 /HPF (<20) 11/30/24 20:50 Urine Mucus Slight /HPF (None Seen) 11/30/24 20:50 Urine Culture Reflexed Reflexed 11/30/24 20:50 Urine Total Protein 1+ (Negative) H 11/30/24 20:50 Weight: 182 lb 11.2 oz Wound Present: No Closed Surgical Incision Present: No Negative Pressure Wound Therapy Present: No Physician Update: Independent bed mobility, superivsion with all transfers. RW 200' with SBA. WC 250' and 7 stairs with min assist. OT met all goals independent with all ADLs. Summary: Patient's care plan and correction goals have been reviewed and revised as necessary. Please see the Rehabilitation Signature page for all necessary signatures.
[2024-12-08] MEDS: cloNIDine HCL 0.1 MG TAB PO PRN (21:31)
[2024-12-10 06:09] LABS: Anion Gap 5.7 mEq/L (5.0-15.0); Potassium 3.7 mEq/L (3.5-5.1)
[2024-12-10 09:17] VITALS: BP 152/77; TEMP 97.1
== END 2024-12-10 15:00 | disposition home health service (06) | DRG 560 ==
LOC: 5TH 20:08
PROVIDERS: ADMIT Psychiatry & Neurology Neurology with Special Qualifications in Child Neurology; ATTEND Psychiatry & Neurology Neurology with Special Qualifications in Child Neurology
DX: Z47.89 Encounter for other orthopedic aftercare (principal); E46 Unspecified protein-calorie malnutrition; E87.1 Hypo-osmolality and hyponatremia; G81.94 Hemiplegia, unspecified affecting left nondominant side; G95.89 Other specified diseases of spinal cord; N39.0 Urinary tract infection, site not specified; R33.9 Retention of urine, unspecified; K21.9 Gastro-esophageal reflux disease without esophagitis; F41.8 Other specified anxiety disorders; R19.7 Diarrhea, unspecified; K59.00 Constipation, unspecified; M54.12 Radiculopathy, cervical region; R25.2 Cramp and spasm; Z68.23 Body mass index [BMI] 23.0-23.9, adult
CPT/HCPCS: 36415; 71045; 74018; 80048; 81001; 82040; 83735; 84134; 85025; 87077; 87086; 87088; 87186; 97110; 97112; 97116; 97161; 97165; 97530; 97542; J2003; Q0162